=== PATIENT | female | born 1955 | race Caucasian/White ===

== ENCOUNTER 2025-01-23 13:57 | Inpatient (IN) | payer MEDICARE, SELFPAY ==
[2025-01-23] VITALS (19 sets, daily range): BP systolic 93–129; BP diastolic 35–70; PULSE 86–112; RESP 16–23; TEMP 36.6–38.9; O2SAT 93–100; BMI 30.5; BMI 31.6
--- NOTE | 2025-01-23 14:29 | RAD_ITS ---
PROCEDURE: CHEST PA AND LATERAL REASON FOR EXAM: Cough fever and back pain. TECHNIQUE: PA and lateral chest radiographs were obtained. COMPARISON: None. FINDINGS: EKG electrodes are seen. Mild elevation of the anterior aspect of the right hemidiaphragm. Patchy bibasilar infiltrates at the lung bases well as in the lingular segment of the left upper lobe. This is superimposed on mild degree of scarring. Follow-up recommended. Degenerative changes of the thoracic spine. RAD/Chest PA and Lateral IMPRESSION: Patchy bibasilar pulmonary infiltrates worse on the left side. Follow-up recom mended. Reading Location: [facility]
--- NOTE | 2025-01-23 14:29 | EKG12_ITS ---
Test Reason : Blood Pressure : */* mmHG Vent. Rate : 108 BPM Atrial Rate : 108 BPM P-R Int : 130 ms QRS Dur : 74 ms QT Int : 324 ms P-R-T Axes : 45 10 21 degrees QTcB Int : 434 ms Sinus tachycardia Otherwise normal ECG No previous ECGs available Confirmed by Carter Araiza ([id number]), visual effects editor MARIELLA LYNCH ([id number]) on 01/25/2025 9:25:46 AM Referred By: Confirmed By: Carter Araiza
[2025-01-23 14:51] LABS: Absolute Lymphocyte Count 0.56 X10^3/uL (0.83-4.51); Basophil# 0.06 X10^3/uL; Basophil% 0.3 % (0-1); Eosinophil# 0.02 X10^3/uL; Eosinophils% 0.1 % (0-5); Hematocrit 41.1 % (37-47); Hemoglobin 13.3 g/dL (12.0-15.0); Lymphocyte # 0.56 X10^3/ul (0.83-4.51); Lymphocyte % 3.1 % (19-41); Mean Corp Hgb Conc 32.4 g/dL (32-36); Mean Corpuscular Hgb 28.9 pg (27.0-32.0); Mean Corpuscular Volume 89.3 fL (81-99); Mean Platelet Vol. 10.3 fl (6.2-12.0); Monocyte# 1.38 X10^3/uL; Monocyte% 7.6 % (0-10); NRBC Flagged by Analyzer 0 % (0-5); Neutrophil # 15.95 X10^3/uL (2.7-7.7); Neutrophil % 88.3 % (47-70); POSITIVE DIFFERENTIAL YES; Platelet Count 197 K/mm3 (150-450); RBC Distribution Width CV 12.8 % (11.6-14.6); RBC Distribution Width SD 42.2 fl (35.1-43.9); White Blood Count 18.1 K/mm3 (4.4-11.0)
[2025-01-23 15:19] LABS: International Normalized Ratio 1.1; Prothrombin Time (Protime)PT. 14.3 SECONDS (11.7-14.9)
[2025-01-23] MEDS: 0.9% Normal Saline (1000mL) 1,000 ML 999 ML IV ×2 (15:21→16:49)
[2025-01-23] MEDS: Ondansetron 4 MG/2 ML Vial IV (15:21)
[2025-01-23] MEDS: Acetaminophen 325 MG Tablet 650 MG PO (15:35)
[2025-01-23 15:44] LABS: AST(SGOT) 22 U/L (<=31); Alanine Aminotransfer ALT/SGPT 14 U/L (<=34); Albumin, Serum 4.1 g/dL (3.4-4.8); Alkaline Phosphatase 112 U/L (35-104); Anion Gap 13 (5-15); BUN 18 mg/dL (4-19); BUN/Creat Ratio 28.8 RATIO (10-20); Calcium 9.9 mg/dL (7.6-11.0); Carbon Dioxide 25.7 mmol/L (22.0-29.0); Chloride 97 mmol/L (96-108); Creatinine, Serum 0.6 mg/dL (0.6-1.0); EST Glomerular Filtration Rate 95 (>60); Estimated Creatinine Clearance 56.71 ml/min; Glucose 121 mg/dL (70-99); Lactic Acid 1.4 mmol/L (0.0-2.0); Potassium 4.4 mmol/L (3.3-5.1); Protein, Total 8.1 g/dL (5.9-8.4); Sodium Level 135 mmol/L (133-145); Total Bilirubin 0.76 mg/dL (0.00-1.30)
[2025-01-23 16:15] LABS: Partial Thromboplast Time 29.2 Seconds (24.1-36.2)
[2025-01-23 16:28] LABS: D-Dimer Quantitative (DVT/PE) > 20.00 FEU/ug/m (0.27-0.49)
--- NOTE | 2025-01-23 16:35 | CT_ITS ---
PROCEDURE: CTA CHEST W/WO CONTRAST REASON FOR EXAM: 69-year-old female, shortness of breath, elevated D-dimer. Cough, nausea and back pain. TECHNIQUE: CTA imaging of the chest with intravenous contrast. 3D reconstructions. CONTRAST: [id number] COMPARISON: Same day chest radiograph. FINDINGS: Hardware: None. Lymph nodes: No axillary lymphadenopathy. Centrally necrotic subaortic lymph node, and large centrally necrotic lesion within the central prevascular space. Heart: Cardiomegaly. No pericardial effusion. Dilation of the main pulmonary artery measuring 3.5 cm. RV/LV Diameter Ratio: Less than 1 Thoracic Aorta: No thoracic aortic aneurysm or dissection. Pulmonary Vessels: Saddle pulmonary embolus. Lungs and Airways: The central airways are patent. Traction bronchiectasis and diffuse honeycombing, greatest within the dependent lungs, with apical to basal gradient, [id number]. Trace left pleural effusion. No pneumothorax. Upper Abdomen: Visualized portions of the upper abdominal viscera are unremarkable. Bones: Mild thoracic spondylosis. No aggressive osseous lesions. CT/CTA Chest W/WO Contrast IMPRESSION: 1. Acute saddle pulmonary emboli. No evidence of right heart strain. 2. Centrally necrotic subaortic lymph node, and necrotic lesion within the cent ral prevascular space, which may communicate with thyroid isthmus, however visualization is limited by streak artifact. Correlat ion with outpatient nonemergent thyroid ultrasound is recommended for further evaluation if not recently performed. 3. Traction bronchiectasis and honeycombing with apical to basal gradient, comp atible with interstitial pulmonary fibrosis. Dr. Miller discussed these findings with Dr. Long at 6:33 pm on 01/23/25. One or more dose reduction techniques were used (e.g., Automated exposure contr ol, adjustment of the mA and/or kV according to patient size, use of iterative reconstruction technique). Reading Location: [id number]
--- NOTE | 2025-01-23 16:47 | EDS_ITS ---
HPI History of Present Illness Chief Complaint: General Illness Informant: patient Narrative Narrative: Patient is a 69-year-old female who is status post left total knee arthroplasty performed by Dr. Banerjee on November 16. She has been having ongoing knee pain and signs as told she has she needs another surgery next week because her knee replacement did not take in her femur. She is presenting today however because she has had 4 to 5 days of nausea and today started to have pain in her back with breathing. She is on both sides. She states she did start having a cough 2 days ago. She has been having fevers Tmax of 101.8 and was 102 ?F in triage here. She denies any URI symptoms such as sore throat or congestion. She had a negative COVID swab 1 week ago at [facility]. She went to urgent care today where she had negative flu swab. She was sent to the ER. Show she has been feeling lightheaded but this is a bit more chronic for her. She denies any new swelling of her legs. She states she did stop wearing her compression stockings. She is not on any oral anticoagulation. Postoperatively she was on aspirin for DVT prophylaxis. She denies any history of DVT or PE. No other complaints or concerns reported at this time. No vomiting reported. Denies abdominal pain. Did not have a bowel movement today and is otherwise been regular. PFSH PFSH Home Medications ?Medication ?Instructions ?Recorded ?Last Taken ?Type meloxicam 7.5 mg tablet 7.5 mg PO BID 01/23/25 Unkno wn History oxycodone 5 mg tablet 5 - 10 mg PO Q6H 01/23/25 History sennosides 8.6 mg tablet (senna) 17.2 mg PO DAILY PRN constipation 01/23/25 01/22/25 History vitamin E 1 applic topical DAILY 01/23 Unknown History Allergy/AdvReac Type Severity Reaction Status Date / Time No Known Allergies Allergy Verified 01/23/25 13:59 Surgical History History of appendectomy Total knee replacement status Social History Smoking Status: Never smoker ROS ROS ED Constitutional Constitutional ED: Reports chills and fever(s) Eyes Eyes: Denies change in vision ENT ENT ED: Denies ear pain, rhinorrhea or sore throat Cardiovascular Cardiovascular: Denies chest pain or palpitations Respiratory/Chest Respiratory/Chest: Reports cough and dyspnea Gastrointestinal Gastrointestinal: Reports nausea; Denies abdominal pain, constipation or vomiting Musculoskeletal Musculoskeletal: Reports back pain; Denies arthralgias or myalgias Integumentary Denies rash Neurologic Neurologic: Denies headache(s) or weakness Hematologic/Lymphatic Hematologic/Lymphatic: Denies easy bleeding or easy bruising EXAM Physical Exam Const Vital Signs: 01/23/25 13:58 01/23/25 13:59 01/23/25 14:37 Temperature 98.8 F 98.8 F Temperature Source Oral Oral Pulse Rate 109 H 109 H Respiratory Rate 18 18 Respiratory Effort Respiratory Pattern Blood Pressure 107/70 107/70 Blood Pressure Mean 82 82 Pulse Ox 93 93 Oxygen Delivery Method Room Air Room Air Room Air 01/23/25 14:37 01/23/25 14:42 01/23/25 15:03 Temperature 102.1 F H 102 F H Temperature Source Oral Oral Pulse Rate 108 H 112 H Respiratory Rate 21 H 20 H Respiratory Effort Short of Breath Respiratory Pattern Normal Blood Pressure 129/65 H 124/69 H Blood Pressure Mean 86 87 Pulse Ox 94 96 Oxygen Delivery Method Room Air Room Air 01/23/25 16:31 01/23/25 18:00 Temperature 100.1 F H Temperature Source Oral Pulse Rate 99 92 Respiratory Rate 16 22 H Respiratory Effort Respiratory Pattern Blood Pressure 97/48 L 93/38 L Blood Pressure Mean 64 56 Pulse Ox 96 99 Oxygen Delivery Method Room Air Room Air Positive well nourished and well developed General Appearance ED: well developed and NAD HEENT Reports moist mucous membranes Eyes PERRL Neck supple Chest Wall inspection of chest normal and palpation of chest normal Resp normal respiratory effort Resp Narrative: Diminished breath sounds at the bases, more pronounced at the left base. Cardio regular rhythm and no murmurs Rate: tachycardic GI normal to inspection, nondistended, normoactive bowel sounds and non-tender Extremity normal to inspection General Extremety ED: Negative for edema General Extremity: Negative for edema Neuro oriented x3 Sensorium / Orientation: alert Motor Exam: general weakness Psych mental status grossly normal Skin no rashes or lesions noted and no wounds MDM MDM MDM Narrative Medical decision making narrative: Patient evaluated for 5 days of nausea and some generalized malaise and today developed pain with breathing in her lower thoracic area. Upon arrival patient's blood pressure soft. O2 sat borderline low. She did have recent knee surgery differential includes pneumonia, influenza, pleurisy and pulmonary emboli. Septic workup initially initiated addition to D-dimer as patient was febrile and tachycardic upon arrival. CBC shows leukocytosis of 18.1. No left shift. D-dimer significantly elevated greater than 20. BMP largely normal. CT of the chest initially viewed by myself shows what appears to be a saddle PE. Discussed the case with Dr. Petty, vascular surgery who recommends heparin drip and n.p.o. after midnight for possible thrombectomy tomorrow morning. Would like echocardiogram. Patient started on heparin drip. I was contacted by radiologist about read. In addition patient has a possible necrotic lymph node and abnormality to her thyroid that we will need further evaluation. Case discussed with hospitalist, Dr. Bhardwaj. Patient informed of diagnosis and plan of care. She is agreeable. Patient has received 2 L of IV fluid in the emergency room. She remains hemodyn amically stable. He is requiring small amount of supplemental oxygen. The patient decompensates likely will require TNK/tPA for thrombolytics. This was discussed with vascular surgery. Despite her large clot burden patient's CT does not show signs of right heart strain per radiology. Troponin mildly elevated at 20 and then 26. proBNP is normal. While patient does meet sepsis criteria her CT is not consistent with pneumonia. I suspect her symptoms are from PE and possible pulmonary infarct. Will not give antibiotics at this time. Lab Data Attestation: I reviewed the patient's lab results. Labs: Laboratory Results - last 24 hr 01/23/25 01/23/25 01/23/25 14:40 16:45 18:46 WBC 18.1 H RBC 4.60 Hgb 13.3 Hct 41.1 MCV 89.3 MCH 28.9 MCHC 32.4 RDW Std Deviation 42.2 RDW Coeff of Xi 12.8 Plt Count 197 MPV 10.3 Immature Gran % (Auto) 0.600 Neut % (Auto) 88.3 H Lymph % (Auto) 3.1 L [place] % (Auto) 7.6 Eos % (Auto) 0.1 Baso % (Auto) 0.3 Absolute Neuts (auto) 16.0 H Absolute Lymphs (auto) 0.56 L Nucleated RBC % 0 PT 14.3 15.7 H INR 1.1 1.2 APTT 29.2 27.7 D-Dimer Quant (PE/DVT) > 20.00 H* Sodium 135 Potassium 4.4 Anion Gap 13 BUN 18 Creatinine 0.6 Estim Creat Clear Calc 56.71 Est GFR (MDRD) Non-Af 95 BUN/Creatinine Ratio 28.8 H Glucose 121 H Lactic Acid 1.4 Calcium 9.9 Total Bilirubin 0.76 AST 22 ALT 14 Alkaline Phosphatase 112 H Troponin T High Sens 20 H Delta Troponin T 6 Troponin T Hi Sens 2 Hr 26 H NT pro BNP II 98 Total Protein 8.1 Albumin 4.1 Globulin 4.0 Albumin/Globulin Ratio 1.0 Urine Color Yellow Urine Clarity Clear Urine pH 6.0 Ur Specific [place] 1.020 Urine Protein 100 H Urine Glucose (UA) Normal Urine Ketones 150 A* Urine Occult Blood 150 H Urine Nitrite Negative Urine Bilirubin Negative Urine Urobilinogen Normal Ur Leukocyte Esterase Negative Urine RBC 5-10 SEEN Urine WBC 0-5 SEEN Ur Squamous Epith Cells 0 SEEN Urine Bacteria 1+ Urine Mucus 1+ Radiography Chest X-Ray - ED: 2 View, Read by ED Physician, Read by Radiologist, Right Infiltrate and Left Infiltrate Diagnostic Testing: Clinical Impression(s) from Imaging Studies Chest X-Ray 01/23/25 14:29 IMPRESSION: Patchy bibasilar pulmonary infiltrates worse on the left side. Follow-up recommended. Reading Location: [facility] Chest CTA 01/23/25 16:35 IMPRESSION: 1. Acute saddle pulmonary emboli. No evidence of right heart strain. 2. Centrally necrotic subaortic lymph node, and necrotic lesion within the central prevascular space, which may communicate with thyroid isthmus, however visualization is limited by streak artifact. Correlation with outpatient nonemergent thyroid ultrasound is recommended for further evaluation if not recently performed. 3. Traction bronchiectasis and honeycombing with apical to basal gradient, compatible with interstitial pulmonary fibrosis. Dr. Miller discussed these findings with Dr. Long at 6:33 pm on 01/23/25. One or more dose reduction techniques were used (e.g., Automated exposure control, adjustment of the mA and/or kV according to patient size, use of iterative reconstruction technique). Reading Location: [facility] Management Discussion w/another healthcare provider: Hospitalist, Host/Hostess and Ra diologist Critical Care Time Critical Care Time: Yes Critical care time (excluding procedures): 30-74 minutes (35), Discussing w/Patient &/or Family/Band Saw Marker, Discussing w/Consultants and Arranging Admission or Transfer Discharge Plan Dx/Rx/DC Orders Clinical Impression: Pulmonary embolism, Hypoxia, Pleuritic pain, Fever, Leukocytosis Disposition Disposition: Acute Care Hospital [facility] Discharge Date/Time: 01/23/25 20:31
[2025-01-23 16:52] LABS: Squamous Epithelial Cells - UA 0 SEEN /hpf (5-10)
[2025-01-23 17:33] LABS: Color, Urine Yellow (Yellow); Glucose, Dipstick Normal (Normal); Leukocyte Esterase-Dipstick Negative /ul (Negative); Nitrite-Dipstick Negative (Negative); Occult Blood-Urine 150 /ul (Negative); Protein-Dipstick 100 mg/dl (Negative); Urine Bilirubin Dipstick Negative (Negative); Urine Clarity Clear (Clear); Urine Urobilinogen Normal (Normal)
[2025-01-23 17:39] LABS: Ketone-Dipstick 150 mg/dl (Negative)
[2025-01-23 18:08] LABS: Bacteria 1+ /hpf (None Seen); Mucous, Urine 1+ /hpf (<or=2+); Red Blood Cells-Urine 5-10 SEEN /hpf (0-5); White Blood Cells 0-5 SEEN /hpf (0-5)
[2025-01-23 18:43] LABS: Troponin T High Sensitivity 20 ng/L (<=14)
[2025-01-23] MEDS: HEPARIN/D5w 25,000 UNITS 25,000 UNITS/250 ML IV.SOLN. 9 UNITS CONT INF (18:43)
[2025-01-23] MEDS: Heparin Injection (Vial) 5,000 UNIT/ML VIAL 4000 UNIT IV (18:43)
[2025-01-23 19:04] LABS: Pro- Brain NATRIURETIC PEPTIDE 98 pg/mL (<=900)
[2025-01-23 19:04] LABS: International Normalized Ratio 1.2; Prothrombin Time (Protime)PT. 15.7 SECONDS (11.7-14.9)
[2025-01-23 19:05] LABS: Partial Thromboplast Time 27.7 Seconds (24.1-36.2)
--- NOTE | 2025-01-23 19:26 | PCM.HP.STD ---
[facility] - General General Date of Service: 01/23/25 Chief Complaint: shortness of breath [facility] Narrative EDSON COOK, is a 69 F who presents with shortness of breath. States that she been short of breath for over a month. But became acutely worse today with back pain as well. Given her worsening symptoms she presented to the emergency room. She underwent a CT angiogram of the chest that showed an acute saddle pulmonary emboli with no evidence of right heart strain. The emergency room physician reached out to Dr. Petty of vascular surgery who will [place] plan on doing an embolectomy on the . In the meantime patient was started on heparin drip. Patient denies ever having a blood clot before but recently had a left knee replacement but it is been showing that the femur aspect of it has not been healing so there was a tentative plan for her to have a revision on that and was supposed to have an orthopedic follow-up appointment on the . PFSH Medical History no medical history no medical history Home Medications ?Medication ?Instructions ?Recorded ?Last Taken ?Type meloxicam 7.5 mg tablet 7.5 mg PO BID 01/23/25 Unknown History oxycodone 5 mg tablet 5 - 10 mg PO Q6H 01/23/25 01/23/25 History sennosides 8.6 mg tablet (senna) 17.2 mg PO DAILY PRN constipation 01/23/25 01/22/25 History vitamin E 1 applic topical DAILY 01/23/25 Unknown History Allergy/AdvReac Type Severity Reaction Status Date / Time No Known Allergies Allergy Verified 01/23/25 13:59 Surgical History History of appendectomy Total knee replacement status Social History Smoking Status: Never smoker ROS ROS Narrative Chills. All review of systems were negative except as mentioned above in the history of present illness and the other review of systems. Vital Signs Vital Signs Vital Signs: 01/23/25 13:58 01/23/25 13:59 01/23/25 14:37 Temperature 37.1 C 37.1 C Temperature Source Oral Oral Pulse Rate 109 H 109 H Respiratory Rate 18 18 Respiratory Effort Respiratory Pattern Blood Pressure 107/70 107/70 Blood Pressure Mean 82 82 Pulse Ox 93 93 Oxygen Delivery Method Room Air Room Air Room Air 01/23/25 14:37 01/23/25 14:42 01/23/25 15:03 Temperature 38.9 C H 38.8 C H Temperature Source Oral Oral Pulse Rate 108 H 112 H Respiratory Rate 21 H 20 H Respiratory Effort Short of Breath Respiratory Pattern Normal Blood Pressure 129/65 H 124/69 H Blood Pressure Mean 86 87 Pulse Ox 94 96 Oxygen Delivery Method Room Air Room Air 01/23/25 16:31 01/23/25 18:00 Temperature 37.8 C H Temperature Source Oral Pulse Rate 99 92 Respiratory Rate 16 22 H Respiratory Effort Respiratory Pattern Blood Pressure 97/48 L 93/38 L Blood Pressure Mean 64 56 Pulse Ox 96 99 Oxygen Delivery Method Room Air Room Air Weight Weight: 70.987 kg Body Mass Index (BMI) 30.5 Physical Exam Const alert and no apparent distress Constitutional Narrative: Slightly anxious did become slightly tearful during the encounter. HEENT normocephalic, head/scalp atraumatic, hearing grossly normal bilaterally and moist oral mucous membranes Neck no lymphadenopathy, supple and no JVD Resp normal respiratory effort, no retractions, no use of accessory muscles and clear to auscultation bilaterally Cardio regular rate, regular rhythm, S1 normal heart sound and S2 normal heart sound GI normal to inspection, nondistended, normoactive bowel sounds and soft to palpation Extremity Extremity Narrative: Swelling in left lower extremity and very hypersensitive to mild palpation. No palpable cords that I could appreciate though limited given her hypersensitivity. Neuro moves all extremities Sensorium / Orientation: awake and alert Psych Mood & Affect: anxious Results Lab / Micro Data Attestation: I reviewed the patient's lab results. 01/23/25 14:40 01/23/25 14:40 Labs: Laboratory Results - last 24 hr 01/23/25 14:40: WBC 18.1 H, RBC 4.60, Hgb 13.3, Hct 41.1, MCV 89.3, MCH 28.9, MCHC 32.4, RDW Std Deviation 42.2, RDW Coeff of Xi 12.8, Plt Count 197, MPV 10.3, Immature Gran % (Auto) 0.600, Neut % (Auto) 88.3 H, Lymph % (Auto) 3.1 L, [place] % (Auto) 7.6, Eos % (Auto) 0.1, Baso % (Auto) 0.3, Absolute Neuts (auto) 16.0 H, Absolute Lymphs (auto) 0.56 L, Nucleated RBC % 0, PT 14.3, INR 1.1, APTT 29.2, D-Dimer Quant (PE/DVT) > 20.00 H*, Sodium 135, Potassium 4.4, Anion Gap 13, BUN 18, Creatinine 0.6, Estim Creat Clear Calc 56.71, Est GFR (MDRD) Non-Af 95, BUN/Creatinine Ratio 28.8 H, Glucose 121 H, Lactic Acid 1.4, Calcium 9.9, Total Bilirubin 0.76, AST 22, ALT 14, Alkaline Phosphatase 112 H, Troponin T High Sens 20 H, NT pro BNP II 98, Total Protein 8.1, Albumin 4.1, Globulin 4.0, Albumin/Globulin Ratio 1.0 01/23/25 16:45: Urine Color Yellow, Urine Clarity Clear, Urine pH 6.0, Ur Specific [place] 1.020, Urine Protein 100 H, Urine Glucose (UA) Normal, Urine Ketones 150 A*, Urine Occult Blood 150 H, Urine Nitrite Negative, Urine Bilirubin Negative, Urine Urobilinogen Normal, Ur Leukocyte Esterase Negative, Urine RBC 5-10 SEEN, Urine WBC 0-5 SEEN, Ur Squamous Epith Cells 0 SEEN, Urine Bacteria 1+, Urine Mucus 1+ 01/23/25 18:46: PT 15.7 H, INR 1.2, APTT 27.7 Micro: Microbiology 01/23/25 14:45 Mucosa - Nose SARS-CoV-2, Influenza & RSV (PCR) - Final Imaging Radiology Impression Chest X-Ray 01/23/25 14:29 IMPRESSION: Patchy bibasilar pulmonary infiltrates worse on the left side. Follow-up recommended. Reading Location: [id number] Chest CTA 01/23/25 16:35 IMPRESSION: 1. Acute saddle pulmonary emboli. No evidence of right heart strain. 2. Centrally necrotic subaortic lymph node, and necrotic lesion within the central prevascular space, which may communicate with thyroid isthmus, however visualization is limited by streak artifact. Correlation with outpatient nonemergent thyroid ultrasound is recommended for further evaluation if not recently performed. 3. Traction bronchiectasis and honeycombing with apical to basal gradient, compatible with interstitial pulmonary fibrosis. Dr. Miller discussed these findings with Dr. Long at 6:33 pm on 01/23/25. One or more dose reduction techniques were used (e.g., Automated exposure control, adjustment of the mA and/or kV according to patient size, use of iterative reconstruction technique). Reading Location: [id number] Assessment & Plan Assessment/Plan (1) Pulmonary embolism: PLAN: Acute pulmonary embolism. Patient that that she has been having shortness of breath for a month but became acutely worse about 5 days prior. Patient with saddle embolism on CT angiogram. Dr. Petty was notified by the emergency room and tentative plan for potential embolectomy on the . The meantime, patient will be on heparin drip. No evidence of any heart strain on the CAT scan but will cycle troponins and check an echocardiogram. Additionally will check duplex of her lower extremities. I suspect to if there is any DVT will certainly be in her left lower extremity. Pressure has been low so we will give her some IV fluids and monitor. Patient otherwise peers to be stable. I would not qualify her as being obstructive shock at this point in time. Though I am going to put the patient in the intensive care unit for closer monitoring in case she were to decompensate. If patient stays stable and depending on what happened with vascular surgery she could potentially be transferred out of the intensive care unit tomorrow. Will consult pulmonary medicine for critical care management. PLAN: Plan Status post failed left knee replacement. I do not have those records in [place] but patient describes that she has incomplete healing of the femur aspect and there is some tentative plan to have that replaced. She had an appointment on the but that would certainly need to be rescheduled. VTE prophylaxis: Not indicated as patient is going to be anticoagulated. CODE STATUS: Addressed with the patient. Patient is full code. Patient advised that she can change her mind at any time. Charges/Coding Visit Charges Inpatient E&M: 96549 Init Hosp L3
[2025-01-23 19:43] LABS: TROPONIN VARIANCE 2 HR 6; Troponin T High Sens 2 HR 26 ng/L (<=14)
--- NOTE | 2025-01-23 20:00 | ED.RN ---
REPORT CALLED TO CLASSIFICATION COUNSELORMAK PAUL. QUESTIONS/CONCERNS ANSWERED
--- NOTE | 2025-01-23 20:41 | ECHOD_ITS ---
Reason For Study Reason For Study: Saddle PE Procedure This was a 2D Doppler, Color Flow transthoracic echocardiogram. Exam performed portable in ICU/CCU. Left Ventricle Normal LV size. The estimated ejection fraction is 65 %. No evidence for diastolic dysfunction. No regional wall motion abnormalities noted. Right Ventricle Normal RV size. Normal systolic function. Atria The left and right atria are normal. No doppler evidence for ASD. Mitral Valve There is no mitral valve stenosis. No mitral valve insufficiency. Tricuspid Valve There is no tricuspid stenosis. Trivial tricuspid valve insufficiency. Pulmonary artery systolic pressure is 40 mmHg. Aortic Valve Trisinus/trileaflet aortic valve. There is no aortic stenosis. No aortic valve insufficiency. Pulmonic Valve There is no pulmonic valvular stenosis. No pulmonic valve insufficiency. Great Vessels Normal sized aortic root. Saddle thrombus noted in the main pulmonary artery. There is also midsystolic notching in the pulmonary artery. Pericardium/Pleural No pericardial effusion. MMode/2D Measurements & Calculations LVIDd: 4.2 cm IVSd: 1.1 cm Ao root diam: 2.9 cm LVIDs: 2.2 cm LVPWd: 1.1 cm RVDd: 3.2 cm FS: 49.1 % LAV(MOD-bp): 29.3 ml LVAd ap4: 20.2 cm2 LVAd ap2: 20.1 cm2 LAV(MOD-bp) Indexed: 17.1 ml/m2 LVLd ap4: 7.7 cm LVLd ap2: 7.6 cm LAV(MOD-sp2): 26.1 ml EDV(MOD-sp4): 44.0 ml EDV(MOD-sp2): 47.4 ml LAV(MOD-sp4): 26.6 ml EDV(sp4-el): 44.9 ml EDV(sp2-el): 45.0 ml LVAs ap4: 9.6 cm2 LVAs ap2: 9.2 cm2 LVLs ap4: 6.5 cm LVLs ap2: 6.3 cm ESV(MOD-sp4): 12.7 ml ESV(MOD-sp2): 13.2 ml ESV(sp4-el): 12.2 ml ESV(sp2-el): 11.3 ml EF(MOD-sp4): 71.0 % EF(MOD-sp2): 72.2 % EF(sp4-el): 72.9 % SV(MOD-sp4): 31.2 ml SV(MOD-sp2): 34.2 ml SV(sp4-el): 32.8 ml SI(MOD-sp4): 18.2 ml/m2 SI(MOD-sp2): 20.0 ml/m2 LA A4 area: 13.0 cm2 LA dimension(2D): 2.4 cm RA A4 area: 9.9 cm2 Time Measurements MV dec time: 0.23 sec Doppler Measurements & Calculations MV E max isael: 88.5 cm/sec Lat Peak E' Isael: 12.6 cm/sec Med Peak E' Isael: 10.3 cm/sec MV A max isael: 106.6 cm/sec E/E' lat: 7.0 E/E' med: 8.6 MV E/A: 0.83 Ao V2 max: 183.9 cm/sec LV V1 max: 146.4 cm/sec MV dec slope: 379.0 cm/sec2 Ao max P.5 mmHg LV V1 max P.6 mmHg Ao V2 mean: 118.2 cm/sec LV V1 mean P.0 mmHg Ao mean P.6 mmHg LV V1 mean: 106.0 cm/sec Ao V2 VTI: 31.7 cm LV V1 VTI: 31.5 cm AV (velocity ratio): 0.99 PA V2 max: 98.2 cm/sec TR max isael: 293.2 cm/sec TR max P.4 mmHg ECHO/Echo Complete Interpretation Summary The estimated ejection fraction is 65 %. No evidence for diastolic dysfunction. Saddle thrombus noted in the main pulmonary artery. There is also midsystolic n otching in the pulmonary artery. Ordering Physician: Raymundo Bhardwaj Referring Physician: Lori Jorgensen Performed By: Janell Martinez RDCS
--- NOTE | 2025-01-23 20:41 | VDLE_ITS ---
Reason For Study Reason For Study: Pulmonary embolism RIGHT LEFT GSV is normal. GSV is normal. Acute deep vein thrombosis is noted in the CFV, FV, CFV is compressible, spontaneous, phasic, competent, PopV, T/P Trunk, PTV, PeroV and SoleusV. It is dilated and demonstrates normal augmentation. and NONCOMPRESSIBLE. FV is compressible, spontaneous, phasic, competent Thrombus in CFV is mobile and not well adhered to the and demonstrates normal augmentation. miles. POP V is compressible, spontaneous, phasic, competent Procedure and demonstrates normal augmentation. This is a venous duplex using B-mode, color flow and T/P Trunk is compressible. spectral Doppler. PTV is compressible. Exam performed portable in ICU/CCU. LT PerV is compressible. A preliminary report was called and/or faxed to ICU. VL/Venous Duplex US - Henrry Extrem Interpretation Summary Acute deep vein thrombosis noted right common femoral vein, femoral vein, popli teal vein, tibioperoneal trunk vein, posterior tibial vein, peroneal vein, soleus vein. Deep veins of the left lower extremity are patent and compressible segmentally. There is no evidence of left lower extremity deep vein thrombosis. The bilateral great saphenous veins appear odonnell nt and compressible segmentally. Ordering Physician: Raymundo Bhardwaj Referring Physician: Lori Jorgensen Performed By: Marlyn Nieto RVT
[2025-01-23] MEDS: 0.9% Normal Saline (1000mL) 1,000 ML 150 ML IV (21:28)
[2025-01-23] MEDS: 0.9% Saline Lock 10 ML Syringe IV (21:29)
[2025-01-23] MEDS: oxyCODONE 5 MG Tablet PO (21:33)
[2025-01-23] MEDS: Senna Tablet 2 TABLET PO (21:33)
[2025-01-24] VITALS (18 sets, daily range): BP systolic 90–124; BP diastolic 40–110; PULSE 81–102; RESP 15–30; TEMP 36.6–37.3; O2SAT 97–100; BMI 32.2
[2025-01-24 01:12] LABS: Partial Thromboplast Time 53.2 Seconds (24.1-36.2)
[2025-01-24 01:53] LABS: TROPONIN VARIANCE 4 HR 3
[2025-01-24 01:54] LABS: Troponin T High Sens 4 HR 23 ng/L (<=14)
[2025-01-24] MEDS: 0.9% Saline Lock 10 ML Syringe IV ×4 (02:10→11:12)
[2025-01-24] MEDS: Morphine 2 MG/ML Syringe IV ×3 (02:10→11:12)
[2025-01-24 03:17] LABS: Absolute Lymphocyte Count 1.11 X10^3/uL (0.83-4.51); Basophil# 0.05 X10^3/uL; Basophil% 0.3 % (0-1); Differential Indicated SCAN CRITERIA MET; Eosinophil# 0.04 X10^3/uL; Eosinophils% 0.2 % (0-5); Hematocrit 31.7 % (37-47); Lymphocyte # 1.11 X10^3/ul (0.83-4.51); Lymphocyte % 6.1 % (19-41); Mean Corp Hgb Conc 31.5 g/dL (32-36); Mean Corpuscular Hgb 28.5 pg (27.0-32.0); Mean Corpuscular Volume 90.3 fL (81-99); Mean Platelet Vol. 10.6 fl (6.2-12.0); Monocyte# 1.84 X10^3/uL; Monocyte% 10.2 % (0-10); NRBC Flagged by Analyzer 0 % (0-5); Neutrophil # 14.97 X10^3/uL (2.7-7.7); Neutrophil % 82.9 % (47-70); POSITIVE DIFFERENTIAL YES; Platelet Count 172 K/mm3 (150-450); RBC Distribution Width SD 42.8 fl (35.1-43.9); Red Blood Count 3.51 M/mm3 (4.2-5.4); White Blood Count 18.1 K/mm3 (4.4-11.0)
[2025-01-24 03:47] LABS: Differential Comment SCANNED; Platelet Estimate ADEQUATE (ADEQ); Platelet Morphology LARGE; Toxic Granulation 1+
[2025-01-24] MEDS: 0.9% Normal Saline (1000mL) 1,000 ML 150 ML IV (04:09)
[2025-01-24] MEDS: HYDROmorphone 1 MG/ML Syringe IV (04:09)
[2025-01-24 04:11] LABS: Anion Gap 10 (5-15); BUN 12 mg/dL (4-19); BUN/Creat Ratio 22.7 RATIO (10-20); Calcium 8.4 mg/dL (7.6-11.0); Carbon Dioxide 22.1 mmol/L (22.0-29.0); Chloride 102 mmol/L (96-108); Creatinine, Serum 0.5 mg/dL (0.6-1.0); EST Glomerular Filtration Rate 100 (>60); Estimated Creatinine Clearance 57.73 ml/min; Glucose 118 mg/dL (70-99); Potassium 4.2 mmol/L (3.3-5.1); Sodium Level 134 mmol/L (133-145)
--- NOTE | 2025-01-24 07:17 | PN.HOSP_ITS ---
Reason for Visit Reason for Visit: Shortness of breath Subjective Subjective Patient states she has considerable shortness of breath with exertion. Still having some pain mostly in her knee and back. Was supposed to have knee surgery upcoming soon but that will clearly need to be delayed. Patient did have total knee arthroplasty so this is provoked DVT and will need 3 to 6 months of anticoagulation. Patient frustrated with the current situation but understanding Objective Data Objective Data Vital Signs: Vital Signs Temp Pulse Resp BP Pulse Ox O2 Del Method O2 Flow Rate 99.1 F 93 25 H 95/42 L 98 Nasal Cannula 2 01/24/25 04:00 01/24/25 06:00 01/24/25 06:00 01/24/25 06:00 01/24/25 06:00 01/24/25 06:00 01/24/25 06:00 Oxygen Flow Rate (L/min) 2 Oxygen Delivery Method Nasal Cannula Weight: 74.5 kg Body Mass Index (BMI) 32.2 Intake & Output: Intake and Output for Last 24 Hours 01/22/25 01/23/25 01/24/25 23:59 23:59 23:59 Intake Total 2300 / 2300 1058.05 / 1058.05 Output Total 400 / 400 Balance 2300 / 1900 658.05 / 658.05 Lab / Micro Data 01/24/25 02:50 01/24/25 02:50 Labs: Laboratory Results - last 24 hr 01/23/25 14:40: WBC 18.1 H, RBC 4.60, Hgb 13.3, Hct 41.1, MCV 89.3, MCH 28.9, MCHC 32.4, RDW Std Deviation 42.2, RDW Coeff of Xi 12.8, Plt Count 197, MPV 10.3, Immature Gran % (Auto) 0.600, Neut % (Auto) 88.3 H, Lymph % (Auto) 3.1 L, [place] % (Auto) 7.6, Eos % (Auto) 0.1, Baso % (Auto) 0.3, Absolute Neuts (auto) 16.0 H, Absolute Lymphs (auto) 0.56 L, Nucleated RBC % 0, PT 14.3, INR 1.1, APTT 29.2, D-Dimer Quant (PE/DVT) > 20.00 H*, Sodium 135, Potassium 4.4, Anion Gap 13, BUN 18, Creatinine 0.6, Estim Creat Clear Calc 56.71, Est GFR (MDRD) Non-Af 95, BUN/Creatinine Ratio 28.8 H, Glucose 121 H, Lactic Acid 1.4, Calcium 9.9, Total Bilirubin 0.76, AST 22, ALT 14, Alkaline Phosphatase 112 H, Troponin T High Sens 20 H, NT pro BNP II 98, Total Protein 8.1, Albumin 4.1, Globulin 4.0, Albumin/Globulin Ratio 1.0 01/23/25 16:45: Urine Color Yellow, Urine Clarity Clear, Urine pH 6.0, Ur Specific [place] 1.020, Urine Protein 100 H, Urine Glucose (UA) Normal, Urine Ketones 150 A*, Urine Occult Blood 150 H, Urine Nitrite Negative, Urine Bilirubin Negative, Urine Urobilinogen Normal, Ur Leukocyte Esterase Negative, Urine RBC 5-10 SEEN, Urine WBC 0-5 SEEN, Ur Squamous Epith Cells 0 SEEN, Urine Bacteria 1+, Urine Mucus 1+ 01/23/25 18:46: PT 15.7 H, INR 1.2, APTT 27.7, Delta Troponin T 6, Troponin T Hi Sens 2 Hr 26 H 01/23/25 22:23: Troponin T Hi Sens 4Hr 23 H 01/24/25 00:50: APTT 53.2 H 01/24/25 02:50: WBC 18.1 H, RBC 3.51 L, Hgb 10.0 L, Hct 31.7 L, MCV 90.3, MCH 28.5, MCHC 31.5 L, RDW Std Deviation 42.8, RDW Coeff of Xi 13.0, Plt Count 172, MPV 10.6, Immature Gran % (Auto) 0.300, Neut % (Auto) 82.9 H, Lymph % (Auto) 6.1 L, [place] % (Auto) 10.2 H, Eos % (Auto) 0.2, Baso % (Auto) 0.3, Absolute Neuts (auto) 15.0 H, Absolute Lymphs (auto) 1.11, Nucleated RBC % 0, Differential Comment SCANNED, Diff Path Review May foll, Toxic Granulation 1+, Platelet Estimate ADEQUATE, Plt Morphology Comment LARGE, Sodium 134, Potassium 4.2, Chloride Direct 102, Carbon Dioxide 22.1, Anion Gap 10, BUN 12, Creatinine 0.5 L , Estim Creat Clear Calc 57.73, Est GFR (MDRD) Non-Af 100, BUN/Creatinine Ratio 22.7 H, Glucose 118 H, Calcium 8.4 Micro: Microbiology 01/23/25 14:45 Mucosa - Nose SARS-CoV-2, Influenza & RSV (PCR) - Final Radiography Diagnostic Testing: Radiology Impression Chest X-Ray 01/23/25 14:29 IMPRESSION: Patchy bibasilar pulmonary infiltrates worse on the left side. Follow-up recommended. Reading Location: [id number] Chest CTA 01/23/25 16:35 IMPRESSION: 1. Acute saddle pulmonary emboli. No evidence of right heart strain. 2. Centrally necrotic subaortic lymph node, and necrotic lesion within the central prevascular space, which may communicate with thyroid isthmus, however visualization is limited by streak artifact. Correlation with outpatient nonemergent thyroid ultrasound is recommended for further evaluation if not recently performed. 3. Traction bronchiectasis and honeycombing with apical to basal gradient, compatible with interstitial pulmonary fibrosis. Dr. Miller discussed these findings with Dr. Long at 6:33 pm on 01/23/25. One or more dose reduction techniques were used (e.g., Automated exposure control, adjustment of the mA and/or kV according to patient size, use of iterative reconstruction technique). Reading Location: [facility] Physical Exam Const alert, oriented x3, no apparent distress and well nourished Constitutional Narrative: Obese, older, white female, sitting up in bed, appears comfortable currently on 2 to 3 L nasal cannula, at bedside, appears comfortable, nontoxic HEENT head/scalp atraumatic and moist oral mucous membranes Head and Scalp: normocephalic Resp normal respiratory effort, no retractions and no use of accessory muscles Resp Narrative: Comfortable breathing at rest, scattered fine crackles Auscultation: crackles; Negative for rales, rhonchi or wheezes Cardio regular rate, regular rhythm, S1 normal heart sound, S2 normal heart sound, no murmurs, no rub, no gallops and no clicks GI normal to inspection, nondistended, normoactive bowel sounds, soft to palpation and non-tender Extremity Extremity Narrative: Left lower extremity edema that is trace, well-healed left knee incision from total knee arthroplasty, scattered ecchymosis, no cyanosis or clubbing Neuro oriented x3 Neuro Narrative: Pain with movement of left lower extremity Speech: speech normal Psych Psych Narrative: Affect is slightly flat the patient intermittently tearful but eye contact is good, mood is appropriate for current situation Assessment & Plan Assessment/Plan (1) Leukocytosis: (2) Fever: (3) Pulmonary embolism: (4) Hypoxia: PLAN: Plan Shortness of breath with acute hypoxemia secondary to saddle pulmonary embolus without cor pulmonale -No RV strain noted on CT or echocardiogram -Vascular surgery has evaluated and doubtful for any intervention for thrombectomy -Continue heparin drip -Plan to transition to Eliquis 10 mg p.o. twice daily for 7 days then 5 mg p.o. twice daily for 3 to 6 months given that this was a provoked DVT -Continue supplemental oxygen--> currently on 2 L nasal cannula -Will need ambulatory pulse ox prior to discharge Pulmonary fibrosis -CTA of the chest shows pulmonary fibrosis -Immunological workup is pending -Outpatient follow-up with pulmonary medicine after discharge for further workup -Highly anticipate patient will need discharge with oxygen between these findings and PE Leukocytosis -Highly suspect reactive -Will continue to monitor with repeat CBC in a.m. -No signs of infection Anemia -Hemoglobin appears to have been in the 10 range -currently 10.0 -Will monitor closely with anticoagulation -Repeat CBC in a.m. Recent left knee replacement -Patient reports that the femoral component has not taken show she needs a repeat procedure -Plan was for said procedure coming up soon however this will need to be delayed given new diagnosis of pulmonary embolus -Outpatient follow-up with orthopedic surgery after discharge -Continue as needed oxycodone -As needed IV Dilaudid -Bowel regimen Obesity -BMI 32.1 -Complicates treatment, prognosis, outcomes -Recommend weight loss DVT prophylaxis -On heparin drip due to the above CODE STATUS -Full code as verified on admission Charges/Coding Visit Charges Inpatient E&M: 97829 Subs Hosp L2
[2025-01-24 07:30] LABS: Partial Thromboplast Time 46.6 Seconds (24.1-36.2)
--- NOTE | 2025-01-24 08:07 | EX.PCM.CONCC ---
Assessment & Plan Assessment/Plan (1) Pulmonary embolism: PLAN: Plan RECOMMENDATIONS: 1. Supplemental oxygen, if needed, to maintain saturations at or above 90%. 2. Awaiting results of echocardiogram. 3. Continue weight-based heparin infusion. 4. Secondary serologic workup for ILD. 5. The patient should follow-up in the pulmonary medicine clinic after discharge. IMPRESSIONS: 1. Shortness of breath and hypoxemia in the setting of saddle PE The patient's presenting dyspnea is likely multifactorial in etiology with evidence of interstitial lung disease coupled with superimposed saddle PE. The exact etiology and chronicity of the patient's interstitial disease is not yet clear. However, radiographically, the findings are concerning for IPF. Will plan to obtain a secondary workup for interstitial lung disease. Serologic workup has been ordered. In the interim, continue weight-based heparin infusion while awaiting the results of echocardiogram. If there is no significant RV dysfunction or pulmonary hypertension, the patient unlikely would benefit from thrombectomy. Continue supplemental oxygen, if needed, to maintain saturations at or above 90%. Ultimately, the patient should follow-up in the pulmonary medicine clinic after discharge. 2. Recent failed knee replacement with resultant immobility Complicates care, management, recovery and prognosis. Will defer further workup and management to orthopedic surgery. This note was generated with be2 dictation software. It may contain incorrect words, spelling, and punctuation that were not noted in checking the note before signing. HPI Consult Data Date of Consult: 01/24/25 HPI Narrative Reason for Consultation: Saddle pulmonary embolism HPI Narrative: The patient is a 69-year-old female, with a history as outlined below, who presented to the emergency department with progressive dyspnea. The patient reported that she has been struggling with dyspnea now for greater than 1 month. She denied any pre-existing lung conditions. She has never been diagnosed with any DVT or PE previously. She did undergo a left total knee arthroplasty by Dr. Diaz in mid October. 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 She has no significant environmental or occupational exposure history. She readily admits to being rather sedentary over the course of the last month following her knee replacement surgery. On presentation to the emergency department, the patient was initially documented to be afebrile and hemodynamically stable. Laboratory evaluation was notable for a white blood cell count of 18,000. D-dimer was significantly elevated. Chemistry profile was unremarkable. Troponin was mildly elevated at 20 with a BNP of 98. Urine analysis was unremarkable. CTA chest demonstrated evidence of saddle pulmonary embolism along with a background of interstitial lung disease with subpleural interstitial septal thickening and honeycomb formation in the bases bilaterally resulting in traction bronchiectasis. The patient was subsequently placed on a weight-based heparin infusion and was admitted to the medical intensive care unit for further management. This morning, the patient reported ongoing shortness of breath. However, she was maintaining appropriate oxygen saturations on 2 L/min via nasal cannula. Echocardiogram is currently pending. Vascular surgery is following the patient, should she require thrombectomy. [facility] Medical History no medical history Home Medications ?Medication ?Instructions ?Recorded ?Last Taken ?Type meloxicam 7.5 mg tablet 7.5 mg PO BID 01/23/25 Unknown History oxycodone 5 mg tablet 5 - 10 mg PO Q6H 01/23/25 01/23/25 History sennosides 8.6 mg tablet (senna) 17.2 mg PO DAILY PRN constipation 01/23/25 01/22/25 History vitamin E 1 applic topical DAILY 01/23/25 Unknown History Allergy/AdvReac Type Severity Reaction Status Date / Time No Known Allergies Allergy Verified 01/23/25 13:59 Surgical History History of appendectomy Total knee replacement status Social History Smoking Status: Never smoker ROS ROS Narrative 10 systems were reviewed with pertinent positives as noted in the HPI above. Physical Exam Const alert, oriented x3 and no apparent distress General Appearance: cooperative HEENT normocephalic and head/scalp atraumatic Eyes PERRL, EOMs intact bilaterally and conjunctivae normal Neck supple General: trachea midline Chest inspection of chest normal Resp normal respiratory effort Resp Narrative: Bibasilar rales Cardio regular rate and regular rhythm GI normal to inspection, nondistended, normoactive bowel sounds Extremity General Extremity: edema left; Negative for clubbing Skin no rashes or lesions noted Neuro CN's II-XII intact bilaterally, moves all extremities and no focal motor deficits Psych cooperative and affect normal Lab / Micro Data 01/24/25 02:50 01/24/25 02:50 Labs: Laboratory Results - last 24 hr 01/23/25 14:40: WBC 18.1 H, RBC 4.60, Hgb 13.3, Hct 41.1, MCV 89.3, MCH 28.9, MCHC 32.4, RDW Std Deviation 42.2, RDW Coeff of Xi 12.8, Plt Count 197, MPV 10.3, Immature Gran % (Auto) 0.600, Neut % (Auto) 88.3 H, Lymph % (Auto) 3.1 L, [place] % (Auto) 7.6, Eos % (Auto) 0.1, Baso % (Auto) 0.3, Absolute Neuts (auto) 16.0 H, Absolute Lymphs (auto) 0.56 L, Nucleated RBC % 0, PT 14.3, INR 1.1, APTT 29.2, D-Dimer Quant (PE/DVT) > 20.00 H*, Sodium 135, Potassium 4.4, Anion Gap 13, BUN 18, Creatinine 0.6, Estim Creat Clear Calc 56.71, Est GFR (MDRD) Non-Af 95, BUN/Creatinine Ratio 28.8 H, Glucose 121 H, Lactic Acid 1.4, Calcium 9.9, Total Bilirubin 0.76, AST 22, ALT 14, Alkaline Phosphatase 112 H, Troponin T High Sens 20 H, NT pro BNP II 98, Total Protein 8.1, Albumin 4.1, Globulin 4.0, Albumin/Globulin Ratio 1.0 01/23/25 16:45: Urine Color Yellow, Urine Clarity Clear, Urine pH 6.0, Ur Specific [place] 1.020, Urine Protein 100 H, Urine Glucose (UA) Normal, Urine Ketones 150 A*, Urine Occult Blood 150 H, Urine Nitrite Negative, Urine Bilirubin Negative, Urine Urobilinogen Normal, Ur Leukocyte Esterase Negative, Urine RBC 5-10 SEEN, Urine WBC 0-5 SEEN, Ur Squamous Epith Cells 0 SEEN, Urine Bacteria 1+, Urine Mucus 1+ 01/23/25 18:46: PT 15.7 H, INR 1.2, APTT 27.7, Delta Troponin T 6, Troponin T Hi Sens 2 Hr 26 H 01/23/25 22:23: Troponin T Hi Sens 4Hr 23 H 01/24/25 00:50: APTT 53.2 H 01/24/25 02:50: WBC 18.1 H, RBC 3.51 L, Hgb 10.0 L, Hct 31.7 L, MCV 90.3, MCH 28.5, MCHC 31.5 L, RDW Std Deviation 42.8, RDW Coeff of Xi 13.0, Plt Count 172, MPV 10.6, Immature Gran % (Auto) 0.300, Neut % (Auto) 82.9 H, Lymph % (Auto) 6.1 L, [place] % (Auto) 10.2 H, Eos % (Auto) 0.2, Baso % (Auto) 0.3, Absolute Neuts (auto) 15.0 H, Absolute Lymphs (auto) 1.11, Nucleated RBC % 0, Differential Comment SCANNED, Diff Path Review May foll, Toxic Granulation 1+, Platelet Estimate ADEQUATE, Plt Morphology Comment LARGE, Sodium 134, Potassium 4.2, Chloride Direct 102, Carbon Dioxide 22.1, Anion Gap 10, BUN 12, Creatinine 0.5 L, Estim Creat Clear Calc 57.73, Est GFR (MDRD) Non-Af 100, BUN/Creatinine Ratio 22.7 H, Glucose 118 H, Calcium 8.4 01/24/25 07:12: APTT 46.6 H Micro: Microbiology 01/23/25 14:45 Mucosa - Nose SARS-CoV-2, Influenza & RSV (PCR) - Final Imaging Radiology Impression Chest X-Ray 01/23/25 14:29 IMPRESSION: Patchy bibasilar pulmonary infiltrates worse on the left side. Follow-up recommended. Reading Location: [id number] Chest CTA 01/23/25 16:35 IMPRESSION: 1. Acute saddle pulmonary emboli. No evidence of right heart strain. 2. Centrally necrotic subaortic lymph node, and necrotic lesion within the central prevascular space, which may communicate with thyroid isthmus, however visualization is limited by streak artifact. Correlation with outpatient nonemergent thyroid ultrasound is recommended for further evaluation if not recently performed. 3. Traction bronchiectasis and honeycombing with apical to basal gradient, compatible with interstitial pulmonary fibrosis. Dr. Miller discussed these findings with Dr. Long at 6:33 pm on 01/23/25. One or more dose reduction techniques were used (e.g., Automated exposure control, adjustment of the mA and/or kV according to patient size, use of iterative reconstruction technique). Reading Location: [id number] Charges/Coding Visit Charges Inpatient E&M: 94161 Init Hosp L3
[2025-01-24] MEDS: oxyCODONE 5 MG Tablet PO ×2 (08:23→14:23)
[2025-01-24 10:54] LABS: Rheumatoid Factor 20.2 IU/mL (<15)
--- NOTE | 2025-01-24 12:00 | CASEMGMT ---
RN TAMERA CLOCKMAKER TAMERA?to room to meet with patient for initial transition planning/care coordination assessment. RN CM?introduced self and role at [facility]. Pt voices understanding and consents to assessment?at this time. Pt resting in bed in no distress at this time. @ bedside. Pt is A/O at this time and answers all questions appropriately. Care providers, pharmacy, and demographics verified/updated at this time. Strata:?1 PCP: Dr Lori Jorgensen. Pt states is wanting to switch PCP's. PCP directory provided. Specialists: Dr Diaz-mark Preferred Pharmacy: [facility] @ [place]. Otherwise, goes to [facility]. Insurance: [facility] Prescription Benefit: yes Living Will/HPOA: States has both LW and HCPOA, who is her . LNOK: , Ilir. Son and daughter. Living Arrangements: Lives w/ in 2-story home w/2 steps to enter. FFSU & handicap accessible.?Pt had surgery to Nov 16 and states she was doing well up until a few weks ago when she started having pain and swelling to her leg. She states she has been pushing herself and doing own ADL's @ home and also IADL's, although it has been difficult. assists w/compression socks. Transportation: DME: States has the following DME: walk-in shower w/shower chair, raised toilet, cane, siomara walker, grab bars, polar care, reclining exercise bike Pt states no need for further DME at this time. HHC/SNF: No hx of either. Has been going to OP therapy @ [facility]. They have cx'd any upcoming appts. Discussed discharge planning including SNF and HHC, questions answered. Pt states if SNF is needed, she would be amenable to going. Pt and state [facility] TCU is 1st choice. If pt able to discharge home, they want [facility]HC as 1st choice. They decline wanting list of other SNF or HHC options at this time. PLAN: TBD. SNF vs HHC. PT/OT evals pending. Follow for anti-coag @ discharge. Jose SALDIVAR RN, CM
[2025-01-24 13:31] LABS: Pathologist Review Reviewed
--- NOTE | 2025-01-24 14:11 | NURSING ---
Report given to NOHEMI Vasquez and Max RN who will resume care of this patient.
[2025-01-24 14:38] LABS: Partial Thromboplast Time 63.2 Seconds (24.1-36.2)
[2025-01-24] MEDS: HEPARIN/D5w 25,000 UNITS 25,000 UNITS/250 ML IV.SOLN. 11 UNITS CONT INF (17:39)
--- NOTE | 2025-01-24 17:51 | EX.PCM.CON.S ---
Assessment & Plan Assessment/Plan (1) Pulmonary embolism: QUALIFIERS: Pulmonary embolism type: saddle Chronicity: acute Acute cor pulmonale presence: without acute cor pulmonale Qualified Code(s): I26.92 - Saddle embolus of pulmonary artery without acute cor pulmonale PLAN: -CTA images reviewed, saddle PE with clot burden worst/occlusive in LLE segmental branch, RV/LV ratio 1.4; lunch parenchyma consistent with pulmonary fibrosis -echo does not reveal strain -trop only mildly elevated, BNP normal -on minimal O@ -in AM subjectively very SOB; improved when evaluated again in afternoon -suspect subjectively severe despite relatively small clot burden and no RV strain due to underlying pulmonary fibrosis -symptoms already improved -will cont heparin overnight, ambulatory O2/symptom assessment in AM -if accesptable then transition to oral anticoagulation; if severe symptoms/desat with ambulation with further discuss options HPI Consult Data Date of Consult: 01/24/25 HPI Narrative HPI Narrative: EDSON COOK, is a 69 F who presents with acute onset CP/back pain and SOB superimposed on exertional dyspnea that had been present for several weeks. She recently had left knee surgery and had been less active due to this and her SOB. A CTA revealed saddle PE with mildly dilated RV, thickened LV wall and septum as well as lung findings consistent with pulmonary fibrosis. She was maintaining saturation on 2 L of O2 though she was unable to speak completed sentences. She had mild tachycardia to 90s-100s and SBP 90-120s. No prior thrombotic events, no cardiac medical/surgical history, no prior diagnosis of pulmonary fibrosis. Trop peaked at 26, BNP 98. Echo- normal RV with no strain PFSH Medical History no medical history Home Medications ?Medication ?Instructions ?Recorded ?Last Taken ?Type meloxicam 7.5 mg tablet 7.5 mg PO BID 01/23/25 Unknown History oxycodone 5 mg tablet 5 - 10 mg PO Q6H 01/23/25 01/23/25 History sennosides 8.6 mg tablet (senna) 17.2 mg PO DAILY PRN constipation 01/23/25 01/22/25 History vitamin E 1 applic topical DAILY 01/23/25 Unknown History Allergy/AdvReac Type Severity Reaction Status Date / Time No Known Allergies Allergy Verified 01/23/25 13:59 Surgical History History of appendectomy Total knee replacement status Social History Smoking Status: Never smoker ROS Constitutional Constitutional: Denies chills, fever(s), frequent falls, lethargy or weakness Eyes Eyes: Denies blind spots, change in vision or loss of vision ENT HEENT: Denies bleeding gums, hoarseness or sore throat Cardiovascular Cardiovascular: Reports chest pain, chest pain at rest, dyspnea, dyspnea at rest, dyspnea on exertion, fatigue and leg edema; Denies abdominal pain, bluish discoloration of hand/feet, claudication, cold extremities, cyanosis, erythema on extremities, irregular heart rhythm, leg ulcers, numbness in extremities or weakness in extremities Respiratory/Chest Respiratory/Chest: Reports dyspnea, dyspnea on exertion, inability to speak, shortness of breath at rest and shortness of breath with exertion; Denies cough, excessive phlegm production or wheezing Gastrointestinal Gastrointestinal: Denies anorexia, change in stool character, constipation, diarrhea, melena or rectal bleeding Genitourinary Genitourinary: Denies dysuria or hematuria Musculoskeletal Musculoskeletal: Reports other Details: left knee pain/stiffness ; Denies abnormal gait Integumentary Integumentary: Denies erythema, non-healing lesions or wounds Neurologic Neurologic: Denies abnormal speech, focal weakness, headache(s), loss of vision, numbness, paresthesias or sensory deficit Hematologic/Lymphatic Hematologic/Lymphatic: Denies easy bleeding, easy bruising or lymphadenopathy Physical Exam Const alert, oriented x3 and healthy appearing General Appearance: cooperative and in distress Positive for mild and respiratory; Negative for combative or lethargic Orientation / Consciousness: awake Exam Limitations: no limitations HEENT Head and Scalp: normocephalic and atraumatic Eyes EOMs intact bilaterally General Eye: normal appearance of both eyes Neck full ROM General: trachea midline Resp normal respiratory effort and no use of accessory muscles Effort and Inspection: labored and pain with movement; Negative for able to speak in complete sentences, stridor or audible wheezes Cardio regular rate and regular rhythm Back/Spine Cervical Spine: cervical ROM normal Extremity full ROM, normal capillary refill and no clubbing, cyanosis or edema Skin no rashes or lesions noted and no wounds Neuro oriented x3, CN's II-XII intact bilaterally, no focal motor deficits and no sensory deficits noted Psych thought process normal, cooperative, affect normal, speech normal and activity/motor behavior normal Lab / Micro Data 01/24/25 02:50 01/24/25 02:50 Labs: Laboratory Results - last 24 hr 01/23/25 14:40: Troponin T High Sens 20 H, NT pro BNP II 98 01/23/25 16:45: Urine RBC 5-10 SEEN, Urine WBC 0-5 SEEN, Ur Squamous Epith Cells 0 SEEN, Urine Bacteria 1+, Urine Mucus 1+ 01/23/25 18:46: PT 15.7 H, INR 1.2, APTT 27.7, Delta Troponin T 6, Troponin T Hi Sens 2 Hr 26 H 01/23/25 22:23: Troponin T Hi Sens 4Hr 23 H 01/24/25 00:50: APTT 53.2 H 01/24/25 02:50: WBC 18.1 H, RBC 3.51 L, Hgb 10.0 L, Hct 31.7 L, MCV 90.3, MCH 28.5, MCHC 31.5 L, RDW Std Deviation 42.8, RDW Coeff of Xi 13.0, Plt Count 172, MPV 10.6, Immature Gran % (Auto) 0.300, Neut % (Auto) 82.9 H, Lymph % (Auto) 6.1 L, [place]min[place] % (Auto) 10.2 H, Eos % (Auto) 0.2, Baso % (Auto) 0.3, Absolute Neuts (auto) 15.0 H, Absolute Lymphs (auto) 1.11, Nucleated RBC % 0, Differential Comment SCANNED, Diff Path Review Reviewed, Toxic Granulation 1+, Platelet Estimate ADEQUATE, Plt Morphology Comment LARGE, Sodium 134, Potassium 4.2, Chloride Direct 102, Carbon Dioxide 22.1, Anion Gap 10, BUN 12, Creatinine 0.5 L, Estim Creat Clear Calc 57.73, Est GFR (MDRD) Non-Af 100, BUN/Creatinine Ratio 22.7 H, Glucose 118 H, Calcium 8.4 01/24/25 07:12: APTT 46.6 H 01/24/25 09:30: Rheumatoid Factor 20.2 H, TAM-1 Antibody TNP, SS-A/Ro IgG Antibody TNP, SS-B/La IgG Antibody TNP, Sm (Álvarez) Antibody TNP, INDIVIDUAL PENSION CONSULTANT Antibody TNP, Antichromatin Antibodies TNP, Centromere B Antibody TNP 01/24/25 14:20: APTT 63.2 H Micro: Microbiology 01/23/25 14:45 Mucosa - Nose SARS-CoV-2, Influenza & RSV (PCR) - Final Imaging Radiology Impression Chest CTA 01/23/25 16:35 IMPRESSION: 1. Acute saddle pulmonary emboli. No evidence of right heart strain. 2. Centrally necrotic subaortic lymph node, and necrotic lesion within the central prevascular space, which may communicate with thyroid isthmus, however visualization is limited by streak artifact. Correlation with outpatient nonemergent thyroid ultrasound is recommended for further evaluation if not recently performed. 3. Traction bronchiectasis and honeycombing with apical to basal gradient, compatible with interstitial pulmonary fibrosis. Dr. Miller discussed these findings with Dr. Long at 6:33 pm on 01/23/25. One or more dose reduction techniques were used (e.g., Automated exposure control, adjustment of the mA and/or kV according to patient size, use of iterative reconstruction technique). Reading Location: [facility] Echocardiogram 01/23/25 20:41 Interpretation Summary The estimated ejection fraction is 65 %. No evidence for diastolic dysfunction. Saddle thrombus noted in the main pulmonary artery. There is also midsystolic notching in the pulmonary artery. Ordering Physician: Raymundo Bhardwaj Referring Physician: Lori Jorgensen Performed By: Janell Martinez RDCS Charges/Coding Visit Charges Inpatient E&M: 38169 Init Hosp L3
[2025-01-24] MEDS: HYDROmorphone 0.5 MG/0.5 ML SYRINGE IV (21:49)
[2025-01-24 22:23] LABS: Partial Thromboplast Time 55.9 Seconds (24.1-36.2)
[2025-01-25] VITALS (8 sets, daily range): BP systolic 90–119; BP diastolic 44–64; PULSE 88–100; RESP 14–21; TEMP 36.6–36.8; O2SAT 91–100; BMI 32.3
[2025-01-25] MEDS: HYDROmorphone 0.5 MG/0.5 ML SYRINGE IV ×2 (01:43→05:21)
--- NOTE | 2025-01-25 07:52 | PN.CC_ITS ---
Assessment & Plan Assessment/Plan (1) Pulmonary embolism: QUALIFIERS: Pulmonary embolism type: saddle Chronicity: acute A cute cor pulmonale presence: without acute cor pulmonale Qualified Code(s): I 26.92 - Saddle embolus of pulmonary artery without acute cor pulmonale PLAN: Plan RECOMMENDATIONS: 1. Supplemental oxygen, if needed, to maintain saturations at or above 90%. 2. Perform walking oximetry study prior to consideration for discharge home. 3. Okay to transition to either Eliquis or Xarelto. 4. ILD serologic workup is pending. 5. The patient should follow-up in the pulmonary medicine clinic after discharge. 6. Will sign off from a critical care perspective. Please call with any additional questions. IMPRESSIONS: 1. Shortness of breath and hypoxemia in the setting of saddle PE The patient's presenting dyspnea is likely multifactorial in etiology with evidence of interstitial lung disease coupled with superimposed saddle PE. The exact etiology and chronicity of the patient's interstitial disease is not clear. However, radiographically, the findings are concerning for IPF. A secondary serologic workup for interstitial lung disease has been ordered, with labs pending. Echocardiogram did not reveal evidence of RV dysfunction with a pulmonary artery systolic pressure of 40 mmHg. Therefore, the decision was made to forego proceeding with thrombectomy. At this time, the patient can be transition from a weight-based heparin infusion to either Eliquis or Xarelto. The patient should follow-up in the pulmonary medicine clinic after discharge. Recommend performing walking oximetry study prior to consideration for discharge home. 2. Recent failed knee replacement with resultant immobility Complicates care, management, recovery and prognosis. Will defer further workup and management to orthopedic surgery. This note was generated with [employer] dictation software. It may contain incorrect words, spelling, and punctuation that were not noted in checking the note before signing. Subjective Subjective The patient was seen and examined at the bedside this morning. Events from the last 24 hours have been reviewed. The patient is currently afebrile, hemodynamically stable and maintaining appropriate oxygen saturations on 2 L/min via nasal cannula. Following evaluation by vascular surgery yesterday, the decision was made to forego thrombectomy. The patient remains on a weight-based heparin infusion. Objective Data Objective Data The patient's most recent lab work, culture data and imaging studies have all been personally reviewed. Lower extremity Doppler study revealed acute DVT in the right lower extremity. Surface echocardiogram was notable for an ejection fraction of 65%. The RV was normal in size and function. Pulmonary artery systolic pressure was estimated to be 40 mmHg. Vital Signs: Vital Signs Temp Pulse Resp BP Pulse Ox O2 Del Method O2 Flow Rate 98.3 F 88 14 97/52 L 98 Nasal Cannula 2 01/25/25 05:26 01/25/25 05:26 01/25/25 05:26 01/25/25 05:26 01/25/25 05:26 01/25/25 05:26 01/25/25 05:26 Oxygen Flow Rate (L/min) 2 Oxygen Delivery Method Nasal Cannula Weight: 164 lb 7.437 oz Body Mass Index (BMI) 32.3 Intake & Output: Intake and Output for Last 24 Hours 01/23/25 01/24/25 01/25/25 23:59 23:59 23:59 Intake Total 2300 / 2300 2502.20 / 2742.20 480 / 480 Output Total 1400 / 1400 Balance 2300 / 1900 1102.20 / 1342.20 480 / 480 Lab / Micro Data Attestation: I reviewed the patient's lab results. 01/25/25 07:36 01/25/25 07:36 Labs: Laboratory Results - last 24 hr 01/24/25 02:50: Diff Path Review Reviewed 01/24/25 07:12: APTT 46.6 H 01/24/25 09:30: Rheumatoid Factor 20.2 H, TAM-1 Antibody TNP, SS-A/Ro IgG Antibody TNP, SS-B/La IgG Antibody TNP, Sm (Álvarez) Antibody TNP, SUPERVISOR EPOXY FABRICATION Antibody TNP, Antichromatin Antibodies TNP, Centromere B Antibody TNP 01/24/25 14:20: APTT 63.2 H 01/24/25 21:58: APTT 55.9 H Micro: Microbiology 01/23/25 14:45 Mucosa - Nose SARS-CoV-2, Influenza & RSV (PCR) - Final Radiography Diagnostic Testing: Radiology Impression Echocardiogram 01/23/25 20:41 Interpretation Summary The estimated ejection fraction is 65 %. No evidence for diastolic dysfunction. Saddle thrombus noted in the main pulmonary artery. There is also midsystolic notching in the pulmonary artery. Ordering Physician: Raymundo Bhardwaj Referring Physician: Lori Jorgensen Performed By: Janell Martinez, [facility] Venous Doppler Study 01/23/25 20:41 Interpretation Summary Acute deep vein thrombosis noted right common femoral vein, femoral vein, popliteal vein, tibioperoneal trunk vein, posterior tibial vein, peroneal vein, soleus vein. Deep veins of the left lower extremity are patent and compressible segmentally. There is no evidence of left lower extremity deep vein thrombosis. The bilateral great saphenous veins appear patent and compressible segmentally. Ordering Physician: Raymundo Bhardwaj Referring Physician: Lori Jorgensen Performed By: Marlyn Nieto Estefany Physical Exam Const alert, oriented x3 and no apparent distress Constitutional Narrative: Sitting in bedside recliner. is present at the bedside. General Appearance: cooperative HEENT normocephalic and head/scalp atraumatic Eyes PERRL, EOMs intact bilaterally and conjunctivae normal Neck supple General: trachea midline Chest inspection of chest normal Resp normal respiratory effort Resp Narrative: Bibasilar rales Cardio regular rate and regular rhythm GI normal to inspection, nondistended, normoactive bowel sounds Extremity General Extremity: edema left; Negative for clubbing Skin no rashes or lesions noted Neuro CN's II-XII intact bilaterally, moves all extremities and no focal motor deficits Psych cooperative and affect normal Charges/Coding Visit Charges Inpatient E&M: 13902 Subs Hosp L2
[2025-01-25 08:45] LABS: Absolute Lymphocyte Count 0.87 X10^3/uL (0.83-4.51); Absolute Neutrophil Count 15.8 X10^3/uL (2.0-7.7); Basophil# 0.04 X10^3/uL; Basophil% 0.2 % (0-1); Differential Indicated SCAN CRITERIA MET; Eosinophil# 0.02 X10^3/uL; Eosinophils% 0.1 % (0-5); Hematocrit 32.3 % (37-47); Hemoglobin 10.3 g/dL (12.0-15.0); Lymphocyte # 0.87 X10^3/ul (0.83-4.51); Lymphocyte % 4.7 % (19-41); Mean Corp Hgb Conc 31.9 g/dL (32-36); Mean Corpuscular Hgb 28.7 pg (27.0-32.0); Mean Platelet Vol. 10.7 fl (6.2-12.0); Monocyte# 1.58 X10^3/uL; Monocyte% 8.6 % (0-10); NRBC Flagged by Analyzer 0 % (0-5); Neutrophil # 15.83 X10^3/uL (2.7-7.7); Neutrophil % 85.9 % (47-70); POSITIVE DIFFERENTIAL YES; Platelet Count 197 K/mm3 (150-450); RBC Distribution Width CV 12.9 % (11.6-14.6); RBC Distribution Width SD 42.3 fl (35.1-43.9); Red Blood Count 3.59 M/mm3 (4.2-5.4); White Blood Count 18.4 K/mm3 (4.4-11.0)
[2025-01-25 09:02] LABS: Partial Thromboplast Time 214.1 Seconds (24.1-36.2)
--- NOTE | 2025-01-25 09:14 | NURSING ---
Heparin turned off at 0907.
[2025-01-25] MEDS: Senna Tablet 2 TABLET PO (10:22)
--- NOTE | 2025-01-25 10:30 | CASEMGMT ---
Discharge Planning A list of?SNF providers including quality and resource use data and consistent with the patient's preferred geographic region, medical needs, and insurance network was created in [employer] Guide.? This list was provided to the patient. Linsey Wilks, Discharge Planning Asst.
--- NOTE | 2025-01-25 10:40 | NURSING ---
heparin rate resumed at 8 ml/hr per Protocol, verified rate with Chintan CORADO.
[2025-01-25 10:59] LABS: ALB/GLOB Ratio 0.9 RATIO (0.9-2.4); AST(SGOT) 14 U/L (<=31); Alanine Aminotransfer ALT/SGPT 9 U/L (<=34); Albumin, Serum 2.9 g/dL (3.4-4.8); Alkaline Phosphatase 89 U/L (35-104); Anion Gap 12 (5-15); BUN 12 mg/dL (4-19); BUN/Creat Ratio 30.5 RATIO (10-20); Calcium 8.9 mg/dL (7.6-11.0); Carbon Dioxide 21.6 mmol/L (22.0-29.0); Chloride 99 mmol/L (96-108); Creatinine, Serum 0.4 mg/dL (0.6-1.0); EST Glomerular Filtration Rate 107 (>60); Estimated Creatinine Clearance 58.18 ml/min; Globulin 3.4 g/dL (2.2-4.2); Glucose 107 mg/dL (70-99); Magnesium 2.1 mg/dL (1.5-2.2); Phosphorus 2.2 mg/dL (2.7-4.5); Potassium 3.9 mmol/L (3.3-5.1); Protein, Total 6.3 g/dL (5.9-8.4); Sodium Level 133 mmol/L (133-145); Total Bilirubin 0.47 mg/dL (0.00-1.30)
[2025-01-25] MEDS: oxyCODONE 5 MG Tablet PO ×2 (12:48→18:44)
[2025-01-25 14:08] LABS: ANTINUCLEAR ANTIBODIES DIRECT Negative (Negative)
--- NOTE | 2025-01-25 15:03 | CHAPLAIN ---
Type of Pastoral Visit _x__ Initial Visit ___ Follow-up Visit ___ On-call Visit ___ General Patient Visit ___ Spiritual Assessment ___ Family Conference ___ Bereavement ___ Rapid Response ___ Code Blue ___ Other (describe below) Pastoral Care Referral From _x__ Patient ___ Family ___ Nurse ___ Physician ___ Combat Control ___ Hospital Clinic Assistant ___ Other (describe below) Sacrament/Intervention _x__ Active listening ___ Anointing ___ Mosque ___ Bereavement ___ Communion _x__ Kaylan exploration ___ _x__ Life review _x__ Prayer ___ Reconciliation ___ Sacrament of Sick _x__ Supportive presence ___ Wedding ___ Other (describe below) Pastoral Comments patient is sitting up in the chair and resting with a food tray in front of her; pt is welcoming, explains that she has not been a hospital patient for 50 years and how much this is out of her comfort level; pt admits difficulty in dealing with this change in health and being dependent on others; pt does have some difficulty in speaking much due to her lung deficiency at this time; pt however welcomes someone to talk to and for prayers to be given; pt has support from family
--- NOTE | 2025-01-25 16:21 | PN.HOSP_ITS ---
Reason for Visit Reason for Visit: Shortness of breath Subjective Subjective No significant issues overnight. Sats are stable on 2 L nasal cannula. Patient still complaining of pretty significant dyspnea especially exertional dyspnea. Between her exertional dyspnea and her ongoing issue with her left lower extremity at the knee joint she does feel she will need prison facility at discharge. I did explain the process of referral and acceptance and then pre-CERT from insurance. I did tell her it is very likely that she could year be here to early next week and she voiced understanding. Objective Data Objective Data Vital Signs: Vital Signs Temp Pulse Resp BP Pulse Ox O2 Del Method O2 Flow Rate 98.3 F 98 21 H 110/64 99 Room Air 2 01/25/25 14:20 01/25/25 14:20 01/25/25 14:20 01/25/25 14:20 01/25/25 14:20 01/25/25 14:20 01/25/25 14:20 Oxygen Flow Rate (L/min) 2 Oxygen Delivery Method Room Air Weight: 74.6 kg Body Mass Index (BMI) 32.3 Intake & Output: Intake and Output for Last 24 Hours 01/23/25 01/24/25 01/25/25 23:59 23:59 23:59 Intake Total 2300 / 2300 2502.20 / 2742.20 650.13 / 650.13 Output Total 1400 / 1400 Balance 2300 / 1900 1102.20 / 1342.20 650.13 / 650.13 Lab / Micro Data 01/25/25 07:36 01/25/25 07:36 Labs: Laboratory Results - last 24 hr 01/24/25 09:30: QUITA Screen Negative 01/24/25 21:58: APTT 55.9 H 01/25/25 07:36: WBC 18.4 H, RBC 3.59 L, Hgb 10.3 L, Hct 32.3 L, MCV 90.0, MCH 28.7, MCHC 31.9 L, RDW Std Deviation 42.3, RDW Coeff of Xi 12.9, Plt Count 197, MPV 10.7, Immature Gran % (Auto) 0.500, Neut % (Auto) 85.9 H, Lymph % (Auto) 4.7 L, [place] % (Auto) 8.6, Eos % (Auto) 0.1, Baso % (Auto) 0.2, Absolute Neuts (auto) 15.8 H, Absolute Lymphs (auto) 0.87, Nucleated RBC % 0, Diff Path Review March, APTT 214.1 H*, Sodium 133, Potassium 3.9, Chloride Direct 99, Carbon Dioxide 21.6 L, Anion Gap 12, BUN 12, Creatinine 0.4 L, Estim Creat Clear Calc 58.18, Est GFR (MDRD) Non-Af 107, BUN/Creatinine Ratio 30.5 H, Glucose 107 H, Calcium 8.9, Phosphorus 2.2 L, Magnesium 2.1, Total Bilirubin 0.47, AST 14, ALT 9, Alkaline Phosphatase 89, Total Protein 6.3, Albumin 2.9 L, Globulin 3.4, Albumin/Globulin Ratio 0.9 Micro: Microbiology 01/23/25 14:40 Blood Culture (Wb) - Anticubital Left Blood Culture - Preliminary No growth in 48 hours. 01/23/25 14:37 Urine, Clean Catch Urine Culture - Preliminary Mixed Gram Positive Organisms 01/23/25 14:45 Mucosa - Nose SARS-CoV-2, Influenza & RSV (PCR) - Final Radiography Diagnostic Testing: Radiology Impression Venous Doppler Study 01/23/25 20:41 Interpretation Summary Acute deep vein thrombosis noted right common femoral vein, femoral vein, popliteal vein, tibioperoneal trunk vein, posterior tibial vein, peroneal vein, soleus vein. Deep veins of the left lower extremity are patent and compressible segmentally. There is no evidence of left lower extremity deep vein thrombosis. The bilateral great saphenous veins appear patent and compressible segmentally. Ordering Physician: Raymundo Bhardwaj Referring Physician: Lori Jorgensen Performed By: Marlyn Nieto, RVT Physical Exam Const alert, oriented x3, no apparent distress and well nourished Constitutional Narrative: Obese, older, white female, sitting up in a chair at the bedside, appears worn out but stable, at bedside, appears comfortable, nontoxic HEENT normocephalic, head/scalp atraumatic, hearing grossly normal bilaterally and moist oral mucous membranes Resp normal respiratory effort, no retractions, no use of accessory muscles and No clear to auscultation bilaterally Resp Narrative: Fine crackles at bases bilaterally Auscultation: crackles; Negative for rales, rhonchi or wheezes Cardio regular rate, regular rhythm, S1 normal heart sound, S2 normal heart sound, no murmurs, no rub, no gallops and no clicks GI normal to inspection, nondistended, normoactive bowel sounds, soft to palpation and non-tender Extremity Extremity Narrative: Left lower extremity edema that is trace, well-healed left knee incision from total knee arthroplasty, scattered ecchymosis, no cyanosis or clubbing, tenderness in left lower extremity with palpation Neuro oriented x3 and moves all extremities Neuro Narrative: Pain with movement of left lower extremity Speech: speech normal Psych Negative for affect normal Psych Narrative: Affect remains flattened patient intermittently tearful Mood & Affect: anxious Assessment & Plan Assessment/Plan (1) Leukocytosis: (2) Fever: (3) Pulmonary embolism: QUALIFIERS: Pulmonary embolism type: saddle Chronicity: acute A cute cor pulmonale presence: without acute cor pulmonale Qualified Code(s): I 26.92 - Saddle embolus of pulmonary artery without acute cor pulmonale (4) Hypoxia: PLAN: Plan Shortness of breath with acute hypoxemia secondary to saddle pulmonary embolus without cor pulmonale -No RV strain noted on CT or echocardiogram -No thrombectomy recommended -Discontinue heparin drip -Start Eliquis 10 mg p.o. twice daily for 7 days then transition to 5 mg p.o. twice daily for a total of 3 to 6 months given provoked status -Continue supplemental oxygen--> currently on 2 L nasal cannula -Will need ambulatory pulse ox prior to discharge -Lasix 40 mg IV push x 1 dose Hypophosphatemia -Mild -Will give 21 mmol of sodium Phos and repeat lab in a.m. Pulmonary fibrosis -CTA of the chest shows pulmonary fibrosis -Immunological workup is pending -Rheumatoid factor was slightly elevated at 20.2 with anti-CCP antibody pending -QUITA was negative -ANCA's are pending -SCL 70 is pending -Double-stranded DNA antibody is pending -Outpatient follow-up with pulmonary medicine after discharge for further workup -Will get scheduled appointment -Highly anticipate patient will need discharge with oxygen between these findings and PE Leukocytosis -Highly suspect reactive and remains elevated -Will continue to monitor with repeat CBC in a.m. -No signs of infection at this time Anemia -Hemoglobin appears to have been in the 10 range -Remained stable between 10 and 11 -Will monitor closely with anticoagulation -Repeat CBC in a.m. Recent left knee replacement -Patient reports that the femoral component has not taken show she needs a repeat procedure -Plan was for said procedure coming up soon however this will need to be delayed given new diagnosis of pulmonary embolus -Outpatient follow-up with orthopedic surgery after discharge -Continue as needed oxycodone -As needed IV Dilaudid -Bowel regimen Obesity -BMI 32.1 -Complicates treatment, prognosis, outcomes -Recommend weight loss DVT prophylaxis -Heparin drip discontinued and patient transition to Eliquis 10 mg p.o. twice daily x 7 days then 5 mg p.o. twice daily CODE STATUS -Full code as verified on admission Disposition: -Given exertional dyspnea and issues with left lower extremity patient feels that she is not safe to go home and her cannot take adequate care of her at home so would like to go to skilled facility. Additional therapy was recommended in the skilled environment by physical and Occupational Therapy. Patient prefers transitional care unit and referral was sent. Will require pre- CERT prior to discharge Charges/Coding Visit Charges Inpatient E&M: 59789 Subs Hosp L2
--- NOTE | 2025-01-25 16:28 | CASEMGMT ---
Social Work SW met with pt and discussed discharge plan. A list of SNF providers including quality and resource use data and consistent with the patient?s preferred geographic region, medical needs, and insurance network were provided from the [employer] Guide. Pt preferred provider is TCU. Referral made to TCU. SW will await determination of acceptance. Plan: TCU, pending acceptance and precert ALEKS Gutierres
[2025-01-25] MEDS: APIXABAN 5 MG TABLET 10 MG PO ×2 (16:42→21:05)
[2025-01-25] MEDS: Furosemide 40 MG/4 ML Vial IV (16:42)
[2025-01-25] MEDS: 0.9% Saline Lock 10 ML Syringe IV (16:43)
[2025-01-25] MEDS: Sodium Phosphate/Na Biphos 21 MMOL in 0.9% Normal Saline (250mL Bag) 250 ML 84 MMOL IV (17:03)
[2025-01-26] MEDS: HYDROmorphone 0.5 MG/0.5 ML SYRINGE IV (01:11)
[2025-01-26 01:14] VITALS: BP 122/51; PULSE 87; RESP 18; TEMP 36.9; O2SAT 99
[2025-01-26 02:28] VITALS: BMI 32.7
[2025-01-26 04:07] LABS: CCP IgG Antibodies 6 units (0-19); Cytoplasmic Ab (C-ANCA) <1:20 titer (Neg:<1:20); Perinuclear Ab (P-ANCA) <1:20 titer (Neg:<1:20)
[2025-01-26 05:00] VITALS: BP 94/48; PULSE 89; RESP 15; TEMP 36.8; O2SAT 99
[2025-01-26 07:41] LABS: Absolute Lymphocyte Count 0.66 X10^3/uL (0.83-4.51); Absolute Neutrophil Count 12.2 X10^3/uL (2.0-7.7); Basophil# 0.05 X10^3/uL; Basophil% 0.3 % (0-1); Eosinophil# 0.09 X10^3/uL; Eosinophils% 0.6 % (0-5); Hematocrit 31.4 % (37-47); Hemoglobin 10.4 g/dL (12.0-15.0); Lymphocyte # 0.66 X10^3/ul (0.83-4.51); Lymphocyte % 4.6 % (19-41); Mean Corp Hgb Conc 33.1 g/dL (32-36); Mean Corpuscular Hgb 29.1 pg (27.0-32.0); Mean Corpuscular Volume 87.7 fL (81-99); Mean Platelet Vol. 10.2 fl (6.2-12.0); Monocyte# 1.31 X10^3/uL; Monocyte% 9.1 % (0-10); NRBC Flagged by Analyzer 0 % (0-5); Neutrophil # 12.23 X10^3/uL (2.7-7.7); Platelet Count 249 K/mm3 (150-450); RBC Distribution Width CV 12.7 % (11.6-14.6); RBC Distribution Width SD 40.6 fl (35.1-43.9); Red Blood Count 3.58 M/mm3 (4.2-5.4); White Blood Count 14.4 K/mm3 (4.4-11.0)
[2025-01-26] MEDS: Magnesium Chloride 64 MG Delay Rel.Tablet 128 MG PO (08:17)
[2025-01-26] MEDS: oxyCODONE 5 MG Tablet PO ×2 (08:17→13:28)
[2025-01-26] MEDS: APIXABAN 5 MG TABLET 10 MG PO (08:18)
[2025-01-26] MEDS: Senna Tablet 2 TABLET PO (08:21)
[2025-01-26 09:08] LABS: Anion Gap 12 (5-15); BUN 13 mg/dL (4-19); BUN/Creat Ratio 30.2 RATIO (10-20); Calcium 8.8 mg/dL (7.6-11.0); Carbon Dioxide 24.8 mmol/L (22.0-29.0); Chloride 97 mmol/L (96-108); Creatinine, Serum 0.43 mg/dL (0.70-1.20); EST Glomerular Filtration Rate 104 (>60); Estimated Creatinine Clearance 58.59 ml/min; Glucose 124 mg/dL (70-99); Potassium 3.2 mmol/L (3.3-5.1); Sodium Level 134 mmol/L (133-145)
--- NOTE | 2025-01-26 09:53 | CASEMGMT ---
Social Work Pt was accepted into TCU and we have precert. SW let pt and physician know, pt is agreeable. OCTAVIANO Melissa
[2025-01-26 10:19] VITALS: O2SAT 96
[2025-01-26 11:00] VITALS: BP 104/50; PULSE 94; RESP 21; TEMP 36.7; O2SAT 90
[2025-01-26 12:00] VITALS: RESP 21; O2SAT 98
--- NOTE | 2025-01-26 12:20 | PN.HOSP_ITS ---
Reason for Visit Reason for Visit: Diagnoses Elevated white blood cell count, unspecified (01/23/25) Saddle embolus of pulmonary artery without acute cor pulmonale (01/23/25) Other pulmonary embolism without acute cor pulmonale (01/23/25) Hypoxemia (01/23/25) Fever, unspecified (01/23/25) Objective Data Objective Data Vital Signs: Vital Signs Temp Pulse Resp BP Pulse Ox O2 Del Method O2 Flow Rate 98.3 F 89 15 94/48 L 96 Nasal Cannula 2 01/26/25 05:00 01/26/25 05:00 01/26/25 05:00 01/26/25 05:00 01/26/25 10:19 01/26/25 10:19 01/26/25 10:19 Oxygen Flow Rate (L/min) 2 Oxygen Delivery Method Nasal Cannula Weight: 75.6 kg Body Mass Index (BMI) 32.7 Intake & Output: Intake and Output for Last 24 Hours 01/24/25 01/25/25 01/26/25 23:59 23:59 23:59 Intake Total 2502.20 / 2742.20 1253.93 / 1253.93 250 / 250 Output Total 1400 / 1400 600 / 600 700 / 700 Balance 1102.20 / 1342.20 653.93 / 653.93 -450 / -450 Lab / Micro Data 01/26/25 07:13 01/26/25 07:13 Labs: Laboratory Results - last 24 hr 01/24/25 09:30: Cycl Citrul Peptide IgG 6, QUITA Screen Negative, c-ANCA Antibody <1:20, Atypical p-ANCA <1:20, p-ANCA Antibody <1:20, Scl-70 Scleroderma Ab TNP, Double Strand DNA Ab TNP 01/26/25 07:13: WBC 14.4 H, RBC 3.58 L, Hgb 10.4 L, Hct 31.4 L, MCV 87.7, MCH 29.1, MCHC 33.1, RDW Std Deviation 40.6, RDW Coeff of Xi 12.7, Plt Count 249, MPV 10.2, Immature Gran % (Auto) 0.400, Neut % (Auto) 85.0 H, Lymph % (Auto) 4.6 L, [place] % (Auto) 9.1, Eos % (Auto) 0.6, Baso % (Auto) 0.3, Absolute Neuts (auto) 12.2 H, Absolute Lymphs (auto) 0.66 L, Nucleated RBC % 0, Sodium 134, Potassium 3.2 L, Chloride Direct 97, Carbon Dioxide 24.8, Anion Gap 12, BUN 13, Creatinine 0.43 L, Estim Creat Clear Calc 58.59, Est GFR (MDRD) Non-Af 104, BUN/Creatinine Ratio 30.2 H, Glucose 124 H, Calcium 8.8 Micro: Microbiology 01/23/25 15:57 Blood Culture (Wb) - Left Hand Blood Culture - Preliminary No growth in 48 hours. 01/23/25 14:40 Blood Culture (Wb) - Anticubital Left Blood Culture - Preliminary No growth in 48 hours. 01/23/25 14:37 Urine, Clean Catch Urine Culture - Preliminary Mixed Gram Positive Organisms 01/23/25 14:45 Mucosa - Nose SARS-CoV-2, Influenza & RSV (PCR) - Final Charges/Coding Visit Charges Inpatient E&M: 53392 Disch Hosp >30min
--- NOTE | 2025-01-26 12:24 | PCM.DC.SUM ---
Providers Date of Admission: 01/23/25 Date of Discharge: 01/26/25 Primary Care Physician: CHERRY Allen Consultations 01/23/25 20:41 Consult: [employer] Sales Consultant / Pulmonary Medicine Routine Consulting Provider: Intensivists/Pulmonary Med Reason for Consult: PE EMERGENT Consult: No MD Notified: Yes Date Notified: 01/24/25 Time Notified: 04:36 Method of Notification: Text Consult: Vascular Surgery Routine Consulting Provider: Raymundo Petty Reason for Consult: PE EMERGENT Consult: No MD Notified: Yes Date Notified: 01/23/25 Time Notified: 19:25 Method of Notification: ED Physician Initiated Reason For Visit: SADDLE PE Diagnosis Discharge Diagnosis (1) Leukocytosis: Status: Acute Code(s): D72.829 - Elevated white blood cell count, unspecified (2) Fever: Status: Acute Code(s): R50.9 - Fever, unspecified (3) Pulmonary embolism: Status: Acute Code(s): I26.99 - Other pulmonary embolism without acute cor pulmonale Qualifiers: Acute cor pulmonale presence: without acute cor pulmonale Chronicity: acute Pulmonary embolism type: saddle Qualified Code(s): I26.92 - Saddle embolus of pulmonary artery without acute cor pulmonale (4) Hypoxia: Status: Acute Code(s): R09.02 - Hypoxemia Medications at Discharge Home Medications meloxicam 7.5 mg tablet 7.5 mg PO BID pain 01/23/25 oxycodone 5 mg tablet 5 mg PO Q4H PRN pain 01/23/25 sennosides 8.6 mg tablet (senna) 17.2 mg PO DAILY PRN constipation 01/23/25 vitamin E 1 applic topical DAILY to affected area 01/23/25 apixaban 5 mg tablet (Eliquis) 5 mg PO BID blood thinner #0 tabs 01/26/25 apixaban 5 mg tablet (Eliquis) 10 mg (2 x 5 mg) PO BID blood thinner #0 tabs 01/26/25 oxycodone 5 mg tablet 5 mg PO Q4H PRN pain 2 days #12 tabs 01/26/25 Hospital Course Procedures 2-D Echocardiogram, EKG and - (CXR/CTA Chest/Venous Duplex) Summary of Care Provided Minutes Spent on Discharge: 45 Hospital Course: Ms Staples is a 69 yo who presented to the ED at [facility] on 01/23/2025 with the chief complaint of shortness of breath. Patient had total knee arthroplasty done back in October 2024 as an outpatient and had been doing well but then developed some left lower extremity swelling and pain. She reported that she been more short of breath for about a month but became acutely worse with significant back pain on the day of presentation. Vital signs on presentation showed a temperature of 37.1, heart rate 109, respiratory 18, blood pressure 107/70 and pulse ox was 93% on room air. CBC showed a leukocytosis with a white count of 18.1 which has trended down throughout hospital stay. Hemoglobin is normal on presentation but was in the 10-11 range by the time of discharge. Chemistry panel was overall unremarkable. Lactic acid was normal at 1.4. BNP was normal. Slightly elevated at 23 with a delta of 26 and an significant rise. Chest x-ray showed patchy bibasilar infiltrates and CTA of the chest showed acute saddle pulmonary emboli with no evidence of right heart strain. She was admitted to the ICU and placed on a heparin drip and consultation to pulmonary medicine as well as vascular surgery was placed. She was valuated by vascular surgery after echocardiograms performed and showed no RV strain. No thrombectomy was performed based on evidence based recommendations. After reviewing imaging patient did indicates she had been get getting progressively worsening shortness of breath over time. It does appear she has pulmonary fibrosis at baseline. Pulmonary medicine did order a workup prior to discharge for autoimmune and she had an elevated rheumatoid factor but anti-CCP antibody was negative. QUITA was negative and ANCA's were all negative. She was maintained on a heparin drip and then transition to Eliquis 10 mg p.o. twice daily and will continue this for total of 7 days then transition to 5 mg p.o. twice daily. Since this was a provoked incident typically we would treat for 3 to 6 months however with her baseline lung disease vascular surgery recommended she have chronic anticoagulation. Patient was able to be weaned to room air prior to discharge at rest however required oxygen with exertion. Plans are to proceed with a total knee replacement on the left which will be a revision based on poor femoral component security. This will likely need to be delayed however patient was encouraged consult with Dr. Diaz after discharge. Given this, she was evaluated physical and Occupational Therapy and with a combination of her shortness of breath and ongoing issues with her left lower extremity it was felt to be safest to discharge her to skilled facility. She was accepted transitional care unit and stable for discharge on 01/26/2025. She is to follow-up with pulmonary medicine, vascular surgery, and her primary care physician as well as orthopedic surgery in the upcoming weeks. Discharge diagnoses: Shortness of breath Acute hypoxia Saddle pulmonary embolus without cor pulmonale Pulmonary fibrosis Hypophosphatemia-resolved Leukocytosis Anemia Recent left knee replacement Obesity Physical Exam Const alert, oriented x3, no apparent distress, no limitations and well nourished; Negative for average body habitus Constitutional Narrative: Obese, older, white female, sitting up in a chair at the bedside, appears worn out but stable, at bedside, appears comfortable, nontoxic General Appearance: cooperative, comfortable, well kempt and well developed Exam Limitations: no limitations HEENT normocephalic, head/scalp atraumatic, hearing grossly normal bilaterally and moist oral mucous membranes HEENT Narrative: Mallampati 2-3 Neck supple Resp normal respiratory effort, no retractions, no use of accessory muscles and No clear to auscultation bilaterally Auscultation: Negative for rales, rhonchi or wheezes Cardio regular rate, regular rhythm, S1 normal heart sound, S2 normal heart sound, no murmurs, no rub, no gallops and no clicks GI normal to inspection, nondistended, normoactive bowel sounds, soft to palpation and non-tender Extremity Extremity Narrative: Left lower extremity edema that is trace, well-healed left knee incision from total knee arthroplasty, scattered ecchymosis, no cyanosis or clubbing, decreased tenderness in left lower extremity with palpation Skin skin turgor normal, no jaundice, no petechiae and no mottling Neuro oriented x3 and moves all extremities Neuro Narrative: Pain with movement of left lower extremity Speech: speech normal Psych affect normal Psych Narrative: pleasant interacts appropriately and less tearful Weight / BMI Weight Weight: 75.6 kg Body Mass Index (BMI) 32.7 ABG / Lab / Microbiology Data 01/26/25 07:13 01/26/25 07:13 Laboratory: Laboratory Results - last 24 hr 01/24/25 09:30: Cycl Citrul Peptide IgG 6, QUITA Screen Negative, c-ANCA Antibody <1:20, Atypical p-ANCA <1:20, p-ANCA Antibody <1:20, Scl-70 Scleroderma Ab TNP, Double Strand DNA Ab TNP 01/26/25 07:13: WBC 14.4 H, RBC 3.58 L, Hgb 10.4 L, Hct 31.4 L, MCV 87.7, MCH 29.1, MCHC 33.1, RDW Std Deviation 40.6, RDW Coeff of Xi 12.7, Plt Count 249, MPV 10.2, Immature Gran % (Auto) 0.400, Neut % (Auto) 85.0 H, Lymph % (Auto) 4.6 L, [place] % (Auto) 9.1, Eos % (Auto) 0.6, Baso % (Auto) 0.3, Absolute Neuts (auto) 12.2 H, Absolute Lymphs (auto) 0.66 L, Nucleated RBC % 0, Sodium 134, Potassium 3.2 L, Chloride Direct 97, Carbon Dioxide 24.8, Anion Gap 12, BUN 13, Creatinine 0.43 L, Estim Creat Clear Calc 58.59, Est GFR (MDRD) Non-Af 104, BUN/Creatinine Ratio 30.2 H, Glucose 124 H, Calcium 8.8 Microbiology: Microbiology 01/23/25 14:37 Urine, Clean Catch Urine Culture - Final Mixed Gram Positive Organisms 01/23/25 15:57 Blood Culture (Wb) - Left Hand Blood Culture - Preliminary No growth in 48 hours. 01/23/25 14:40 Blood Culture (Wb) - Anticubital Left Blood Culture - Preliminary No growth in 48 hours. 01/23/25 14:45 Mucosa - Nose SARS-CoV-2, Influenza & RSV (PCR) - Final D/C Instructions Discharge Diet: No restrictions DC O2, CPAP, BIPAP Needs Home O2 Discharge instructions: No Meaningful Use Info Meaningful Use Meaningful Use Diagnoses (Choose all that apply): VTE Ischemic Stroke Statin Dosing Therapy Reference: STATIN DOSE THERAPY REFERENCE: * Patients > 75 years receive moderate or high dose statin therapy. * Patients 75 years or YOUNGER should receive HIGH intensity statin dose unless contraindicated. You will be required to document reason for non-treatment if statin daily dose does not meet guidelines. HIGH DOSE STATIN THERAPY DAILY Atorvastatin > than or = to 40 mg Rosuvastatin > than or = to 20 mg Amlodipine + Atorvastatin > than or = to 2.5/40 mg Ezetimibe + Simvastatin 10/80 mg Simvastatin 80mg VTE Anticoag overlap given w/in hospital stay or rx'd at dc?: Yes Pt receive overlap for 5 days?: No Reason overlap not ordered, prescribed, or given for 5 days: Treatment Not Indicated Discharge Plan Admission Admit Date/Time: 01/23/25 19:21 Primary Reason for Your Visit: Shortness of breath Attending Provider: Lori Matthews Primary Care Provider: Lori Jorgensen Consulting Providers: Raymundo Petty; Raymundo Bhardwaj Discharge Orders/Prescriptions Prescriptions: New Eliquis 5 mg Tablet 10 mg PO BID Qty: 0 0RF Rx Instructions: Last day for this dose is 02/01/2020 5 in the PM Eliquis 5 mg Tablet 5 mg PO BID Qty: 0 0RF Rx Instructions: To start on 02/01/2025 oxycodone 5 mg tablet 5 mg PO Q4H PRN (Reason: pain) 2 Days Qty: 12 0RF Continued oxycodone 5 mg tablet 5 mg PO Q4H PRN (Reason: pain) Patient Comments: TAKES 5MG TID meloxicam 7.5 mg tablet 7.5 mg PO BID Patient Comments: PT STATES SHE HASN'T TAKEN THIS IN A FEW DAYS vitamin E Oil 1 applic topical DAILY sennosides [senna] 8.6 mg tablet 17.2 mg PO DAILY PRN (Reason: constipation) Referrals / Follow Up: Cindy Guerrier NP, KD-C [Med Staff - [facility]] - 02/12/25 1:45 pm Lori Jorgensen NP-C [Primary Care Provider] - In 1 Week (After discharge from TCU) Disposition Disposition (needs filled in before D/C Order can be placed): Long-Term Facility Charges/Coding Visit Charges Inpatient E&M: 33322 SNF Disch >30 Min
[2025-01-26 12:28] VITALS: BP 104/50; PULSE 94; RESP 21; TEMP 36.7; O2SAT 90
[2025-01-26 13:37] LABS: Pathologist Review Reviewed
--- NOTE | 2025-01-26 15:23 | CASEMGMT ---
Social Work- Pt has precert. Physician feels pt is ready for discharge. SW faxed documentation to TCU. Plan: TCU; skilled level of care [place]
== END 2025-01-26 14:19 | disposition skilled nursing facility (03) | DRG 176 ==
LOC: ED 18:32 → ICU 19:34
PROVIDERS: Internal Medicine Critical Care Medicine; Emergency Provider Emergency Medicine; PCP Nurse Practitioner Family; Visit Provider Internal Medicine
DX: I26.92 Saddle embolus of pulmonary artery without acute cor pulmonale (principal); T84.093A Other 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, initial encounter; I82.411 Acute embolism and thrombosis of right femoral vein; I82.431 Acute embolism and thrombosis of right popliteal vein; I82.451 Acute embolism and thrombosis of right peroneal vein; I82.441 Acute embolism and thrombosis of right tibial vein; E83.39 Other disorders of phosphorus metabolism; J84.10 Pulmonary fibrosis, unspecified; D64.9 Anemia, unspecified; E66.9 Obesity, unspecified; D72.829 Elevated white blood cell count, unspecified; M17.12 Unilateral primary osteoarthritis, left knee; I82.461 Acute embolism and thrombosis of right calf muscular vein; R50.9 Fever, unspecified; Y79.2 Prosthetic and other implants, materials and accessory orthopedic devices associated with adverse incidents; R09.02 Hypoxemia; Z68.32 Body mass index [BMI] 32.0-32.9, adult; R53.81 Other malaise; Z79.82 Long term (current) use of aspirin
CPT/HCPCS: 36415; 71046; 71275; 80048; 80053; 81001; 83605; 83735; 83880; 84100; 84484; 85025; 85379; 85610; 85730; 86037; 86038; 86200; 86225; 86235; 86431; 87040; 87086; 87088; 87631; 93005; 93306; 93970; 94762; 97162; 97166; 99285; Q9967; A4216; J1940; J2405

== ENCOUNTER 2025-01-26 14:40 | Inpatient (IN) | payer MEDICARE, SELFPAY ==
[2025-01-26 14:51] VITALS: BP 128/66; PULSE 76; RESP 18; TEMP 36.3; O2SAT 94; BMI 32.2
--- NOTE | 2025-01-26 14:54 | PCM.HP.STD ---
HPI - General General Date of Admission: 01/26/25 Date of Service: 01/26/25 Chief Complaint: Debility HPI Narrative EDSON COOK, is a 69 Female who presents with followin01/23/2025 [facility] ED generalized weakness. Dr. Diaz performed left total knee arthroplasty 11/16/2024, ongoing left knee pain, needs revision left total knee arthroplasty femoral component 01/29/2025. Nausea for 4 to 5 days, pain i back with breathing cough for 3 days. Fever 102, covid negative, flu negative, lightheaded. Stopped wearing compression stockings, on aspirin twice daily for dvt prophylaxis. WBC 18.1, D-dimer > 20. CTA chest showed saddle embolus, CTA chest negative right heart strain, Dr. Petty recommended heparin drip, echo, NPO for thrombectomy in morning. Normal saline 2 liters IV bolus given. Pulmonary embolism, possible pulmonary infarct. 01/23/2025 Admit [facility]. IV fluids for hypotension. Heparin drip for saddle pulmonary embolism. 01/24/2025 Dyspnea on exertion, pain in knee, back. Delay revision left total knee arthroplasty femoral component 12/31 pulmonary embolism. Vascular surgery recommended no thrombectomy. Change Heparin to Eliquis 10mg bid x 7 days, then 5mg bid x 6 months. Oxygen 2 liters per nasal cannula. CTA chest showed pulmonary fibrosis. Dilaudid IV prn left knee pain. 01/24/2025 Echo EF 65%. Negative diastolic dysfunction. 01/24/2025 Doppler ultrasound positive dvt right lower extremity. 01/25/2025 No acute events overnight. Oxygen 2 liters per nasal cannula. Significant dyspnea on exertion, severe left knee pain, needs SNF on discharge. Eliquis for saddle pulmonary embolism. Lasix 40mg iv push x 1 dose. Pulmonary fibrosis: RA 20.2 mildly elevated. Anti-CCP pending. QUITA negative. ANCA pending. SCL 70 pending. double stranded DNA antibody pending. Follow up pulmonary as outpatient. Hemoglobin stable. 01/26/2025 Admit to TCU with debility, here for rehabilitation, strengthening, prior to discharge home with . [facility] Medical History (Updated 01/26/25 @ 15:[address] Scott Mcdowell MD) Failed total left knee replacement Osteoarthritis of left knee Pulmonary fibrosis Right leg DVT Saddle pulmonary embolus Acute respiratory failure with hypoxia Debility Home Medications ?Medication ?Instructions ?Recorded ?Last Taken ?Type meloxicam 7.5 mg tablet 7.5 mg PO BID pain 01/23/25 Unknown History oxycodone 5 mg tablet 5 mg PO Q4H PRN pain 01/23/25 01/23/25 History sennosides 8.6 mg tablet (senna) 17.2 mg PO DAILY PRN constipation 01/23/25 01/22/25 History vitamin E 1 applic topical DAILY to affected 01/23/25 Unknown History area apixaban 5 mg tablet (Eliquis) 5 mg PO BID blood thinner #0 tabs 01/26/25 Unknown Rx apixaban 5 mg tablet (Eliquis) 10 mg (2 x 5 mg) PO BID blood 01/26/25 Unknown Rx thinner #0 tabs oxycodone 5 mg tablet 5 mg PO Q4H PRN pain 2 days #12 01/26/25 Unknown Rx tabs Allergy/AdvReac Type Severity Reaction Status Date / Time No Known Allergies Allergy Verified 01/23/25 13:59 Surgical History History of appendectomy Total knee replacement status Social History (Updated 01/26/25 @ 15:[address] Scott Mcdowell MD) household members: spouse Smoking Status: Never smoker alcohol intake: never substance use type: does not use ROS Constitutional Constitutional: Reports weakness; Denies chills, fever(s) or weight gain ENT HEENT: Denies headache(s), nasal congestion or nasal discharge Cardiovascular Cardiovascular: Denies chest pain or palpitations Respiratory/Chest Respiratory/Chest: Reports dyspnea on exertion and shortness of breath with exertion; Denies cough or excessive phlegm production Gastrointestinal Gastrointestinal: Denies abdominal pain, nausea or vomiting Genitourinary Genitourinary: Denies dysuria Musculoskeletal Musculoskeletal: Denies joint pain or joint swelling Integumentary Integumentary: Denies rash or wounds Neurologic Neurologic: Denies focal weakness, numbness or tingling Psychiatric Psychiatric: Denies anxiety, auditory hallucinations, depression, homicidal ideation or suicidal ideation Physical Exam Const alert General Appearance: cooperative HEENT normocephalic Eyes PERRL and EOMs intact bilaterally Neck supple, no JVD and no carotid bruits Resp normal respiratory effort, normal air movement and clear to auscultation bilaterally Cardio regular rate and regular rhythm GI normal to inspection, nondistended, normoactive bowel sounds, non-tender and non-distended Extremity normal capillary refill General Extremity: Negative for edema Skin no rashes or lesions noted General Skin Exam: no breakdown Psych affect normal Appearance: appropriate Assessment & Plan Assessment/Plan (1) Debility: (2) Acute respiratory failure with hypoxia: (3) Saddle pulmonary embolus: (4) Right leg DVT: (5) Pulmonary fibrosis: (6) Osteoarthritis of left knee: (7) Failed total left knee replacement: PLAN: Plan 69 year old female with below past medical history hospitalized for acute respiratory failure with hypoxia 2/2 saddle pulmonary embolism (thrombectomy not recommended), complicated by right lower extremity dvt, pulmonary fibrosis, left total knee replacement failure, admitted to TCU with debility, here for rehabilitation, strengthening, prior to discharge home with . Debility - PT/OT. Pain - Tylenol 1000mg q6 prn pain (1-3), Tramadol 50mg q6 prn pain (4-5), Oxycodone 5mg q4 prn pain (6-10). Bowel - senna/colace 2 tablets bid, Magnesium citrate 300mL po daily prn Adult immunization - Administer pneumonia vaccine, covid vaccine, flu vaccine as appropriate. DVT prophylaxis - Eliquis. Osteoarthritis - Meloxicam 7.5mg bid, monitor for signs and symptoms of bleeding. Saddle pulmonary embolism - Eliquis 10mg bid x 7 days, then Eliquis 5mg bid thru 07/23/2025. Right lower extremity dvt - Eliquis 10mg bid x 7 dyas, then Eliquis 5mg bid thru 07/23/2025. Pulmonary fibrosis - Bloodwork evaluation pending, f/u Dr. Allred as outpatient. She has had shortness of breath with exertion for 4 years, limiting her ability to [place], she has 12 acres she likes to care for, and walking up a hill has been unable for 4 years, this is prior to pulmonary embolism. Left total knee replacement failure - schedule revision left total knee replacement femoral component with Dr. Diaz once off anticoagulation. Rash - Vitamin E topical bid.
[2025-01-26] MEDS: Meloxicam 7.5 MG Tablet PO (22:59)
[2025-01-26] MEDS: APIXABAN 5 MG TABLET 10 MG PO (23:00)
[2025-01-26] MEDS: Senna/Docusate Sodium 1 Tablet 2 TABLET PO (23:00)
[2025-01-26] MEDS: oxyCODONE 5 MG Tablet PO (23:04)
[2025-01-27] MEDS: oxyCODONE 5 MG Tablet PO ×3 (04:41→18:20)
[2025-01-27 05:35] LABS: Absolute Lymphocyte Count 1.11 X10^3/uL (0.83-4.51); Basophil# 0.05 X10^3/uL; Basophil% 0.5 % (0-1); Eosinophil# 0.27 X10^3/uL; Eosinophils% 2.5 % (0-5); Hematocrit 30.3 % (37-47); Hemoglobin 9.8 g/dL (12.0-15.0); Lymphocyte # 1.11 X10^3/ul (0.83-4.51); Lymphocyte % 10.3 % (19-41); Mean Corp Hgb Conc 32.3 g/dL (32-36); Mean Corpuscular Hgb 28.6 pg (27.0-32.0); Mean Corpuscular Volume 88.3 fL (81-99); Mean Platelet Vol. 9.8 fl (6.2-12.0); Monocyte# 1.28 X10^3/uL; Monocyte% 11.9 % (0-10); NRBC Flagged by Analyzer 0 % (0-5); Neutrophil # 7.98 X10^3/uL (2.7-7.7); Neutrophil % 74.4 % (47-70); Platelet Count 270 K/mm3 (150-450); RBC Distribution Width CV 12.8 % (11.6-14.6); RBC Distribution Width SD 41.4 fl (35.1-43.9); Red Blood Count 3.43 M/mm3 (4.2-5.4); White Blood Count 10.7 K/mm3 (4.4-11.0)
[2025-01-27 06:02] LABS: Anion Gap 10 (5-15); BUN 13 mg/dL (4-19); BUN/Creat Ratio 32.1 RATIO (10-20); Calcium 8.6 mg/dL (7.6-11.0); Carbon Dioxide 26.2 mmol/L (22.0-29.0); Chloride 100 mmol/L (96-108); Creatinine, Serum 0.41 mg/dL (0.70-1.20); EST Glomerular Filtration Rate 105 (>60); Estimated Creatinine Clearance 58.28 ml/min; Glucose 99 mg/dL (70-99); Potassium 3.4 mmol/L (3.3-5.1); Sodium Level 136 mmol/L (133-145)
[2025-01-27 10:00] VITALS: BP 109/49; PULSE 90; RESP 16; O2SAT 96
[2025-01-27] MEDS: Meloxicam 7.5 MG Tablet PO ×2 (10:03→20:06)
[2025-01-27] MEDS: Senna/Docusate Sodium 1 Tablet 2 TABLET PO ×2 (10:03→20:06)
[2025-01-27] MEDS: APIXABAN 5 MG TABLET 10 MG PO ×2 (10:04→20:05)
[2025-01-27] MEDS: Tuberculin,Purif.prot.deriv. 50 TU/ML Vial 0.1 ML ID (10:09)
[2025-01-27 11:04] VITALS: TEMP 36.6
[2025-01-27 14:28] VITALS: TEMP 37.1
--- NOTE | 2025-01-27 18:25 | NURSING ---
Addendum entered by Sheryl Hampton 01/27/25 18:56: Received and read-back telephone orders from Dr. Mcdowell for scheduled Gabapentin and PRN Baclofen for muscle spasms. Original Note: After receiving PRN oxycodone, pt states that the pain to LLE feels more like pins and needles... is throbbing than aching. States that she notices some relief with PRN Oxy, but that the pins and needles pain is consistent throughout day. Is requesting pain medication review tomorrow. Left written communication for Dr. Mcdowell.
[2025-01-27] MEDS: 0.9% Saline Lock 10 ML Syringe IV (20:09)
[2025-01-27] MEDS: traMADol 50 MG Tablet PO (22:49)
[2025-01-28] MEDS: Acetaminophen 500 MG Tablet 1000 MG PO (03:20)
[2025-01-28] MEDS: Gabapentin 100 MG Capsule PO ×3 (08:58→17:25)
[2025-01-28] MEDS: APIXABAN 5 MG TABLET 10 MG PO ×2 (08:58→22:10)
[2025-01-28] MEDS: Senna/Docusate Sodium 1 Tablet 2 TABLET PO ×2 (08:59→22:11)
[2025-01-28] MEDS: Meloxicam 7.5 MG Tablet PO ×2 (08:59→22:10)
[2025-01-28 10:00] VITALS: BP 126/51; PULSE 85; RESP 18; TEMP 36.3; O2SAT 98
[2025-01-28] MEDS: traMADol 50 MG Tablet PO ×2 (12:36→22:09)
[2025-01-28] MEDS: 0.9% Saline Lock 10 ML Syringe IV ×2 (17:26→22:09)
[2025-01-28 20:00] VITALS: PULSE 86; O2SAT 95
[2025-01-29 05:39] LABS: Hematocrit 31.1 % (37-47)
[2025-01-29 06:39] VITALS: PULSE 94; O2SAT 94
[2025-01-29] MEDS: Gabapentin 100 MG Capsule PO ×3 (09:11→17:27)
[2025-01-29] MEDS: Senna/Docusate Sodium 1 Tablet 2 TABLET PO ×2 (09:11→22:06)
[2025-01-29] MEDS: APIXABAN 5 MG TABLET 10 MG PO ×2 (09:11→22:05)
[2025-01-29] MEDS: Meloxicam 7.5 MG Tablet PO ×2 (09:11→22:05)
[2025-01-29 10:00] VITALS: BP 103/52; PULSE 97; RESP 18; TEMP 36.4; O2SAT 98
[2025-01-29 10:51] VITALS: O2SAT 97
--- NOTE | 2025-01-29 11:00 | NURSING ---
Offered covid vaccine, VIS provided. Resident declines at this time.
--- NOTE | 2025-01-29 12:25 | CASEMGMT ---
Social Work SW met with patient to complete initial assessment. Introduced self and role. Verified/updated contacts. Patient confirmed code status as full code. SW requested family provide copies of advanced directives to place on file. SW educated to [facility] insurance with NRD 3/ and continued stay is not guaranteed with each review. pt's goal is to return home with at [facility]. SW will continue to follow for DC planning. Omaira Hernandez [employer]FORMATION SYSTEMS DIRECTOR
--- NOTE | 2025-01-29 16:53 | NURSING ---
Oxygen 98% on 1L this AM. Oxygen removed this patient tolerated well. She reports she dropped into 80s while ambulating with therapy but recovered quickly after sitting. Patient had coughing episode this afternoon after startling awake and could not catch breath. electric needle specialist placed 2L of oxygen on and made this nurse aware. When this nurse evaluated her, SPO2 was 98%. Patient continued to cough but able to speak. Oxygen placed on 1L and patient denied further needs at this time.
[2025-01-29] MEDS: 0.9% Saline Lock 10 ML Syringe IV (17:30)
[2025-01-29] MEDS: oxyCODONE 5 MG Tablet PO (22:04)
[2025-01-29] MEDS: Baclofen 10 MG Tablet PO (22:05)
[2025-01-30 08:04] VITALS: BP 93/78; PULSE 103; RESP 16; TEMP 36.4; O2SAT 95
[2025-01-30 08:08] VITALS: BP 121/68; PULSE 96
[2025-01-30] MEDS: Gabapentin 100 MG Capsule PO ×3 (08:10→17:42)
[2025-01-30] MEDS: APIXABAN 5 MG TABLET 10 MG PO ×2 (08:10→21:48)
[2025-01-30] MEDS: Meloxicam 7.5 MG Tablet PO ×2 (08:10→21:49)
[2025-01-30] MEDS: Senna/Docusate Sodium 1 Tablet 2 TABLET PO (08:12)
[2025-01-30 08:33] VITALS: O2SAT 97
[2025-01-30] MEDS: 0.9% Saline Lock 10 ML Syringe IV ×2 (10:18→21:47)
[2025-01-30] MEDS: Baclofen 10 MG Tablet PO ×2 (10:22→21:53)
[2025-01-30 14:19] VITALS: BMI 31.0
--- NOTE | 2025-01-30 15:09 | PCM.PN.DRR ---
Documented by User: Anum Cody 01/30/25 15:22 TCU RX Drug Regimen Review Subjective/Objective Subjective/Objective Subjective: TCU Admission. 69 YOF presented to the ER with weakness. Hospitalized for acute respiratory failure with hypoxia 2/2 saddle pulmonary embolism (thrombectomy not recommended), complicated by right lower extremity dvt, pulmonary fibrosis, left total knee replacement failure. Admitted to TCU with debility for strengthening and rehabilitation. Objective: Allergies No Known Allergies Allergy (Verified 01/23/25 13:59) Current Medications Generic Name Dose Route Start Last Admin Trade Name Freq PRN Reason Stop Dose Admin Acetaminophen 1,000 mg 01/26/25 15:42 01/28/25 03:20 Acetaminophen 500 Mg Tablet PO 1,000 mg Q6H PRN PRN Administration Pain Score 1-3 Apixaban 10 mg 01/26/25 22:00 01/30/25 08:10 Apixaban 5 Mg Tablet PO 01/31/25 23:59 10 mg BID GABBI Administration Apixaban 5 mg 02/01/25 10:00 Apixaban 5 Mg Tablet PO 07/23/25 23:59 BID GABBI Baclofen 10 mg 01/27/25 18:53 01/30/25 10:22 Baclofen 10 Mg Tablet PO 10 mg TID PRN PRN Administration MUSCLE SPASM Gabapentin 100 mg 01/28/25 07:45 01/30/25 13:43 Gabapentin 100 Mg Capsule PO 100 mg TIDCM GABBI Administration Magnesium Citrate 300 ml 01/26/25 15:42 Magnesium Citrate 300 Ml PO DAILY PRN Constipation Meloxicam 7.5 mg 01/26/25 22:00 01/30/25 08:10 Meloxicam 7.5 Mg Tablet PO 7.5 mg BID GABBI Administration Oxycodone HCl 5 mg 01/26/25 15:02 01/29/25 22:04 Oxycodone 5 Mg Tablet PO 5 mg Q4H PRN Administration Pain Score 6-10 or Pre PT/OT Senna/Docusate Sodium 2 tablet 01/26/25 22:00 01/30/25 08:12 Senna/Docusate Sodium 1 Tablet PO 2 tablet BID GABBI Administration Sodium Chloride 10 - 40 ml 01/26/25 14:58 01/30/25 10:18 0.9% Saline Lock 10 Ml Syringe IV 10 ml UD PRN Administration SALINE FLUSH Tramadol HCl 50 mg 01/26/25 15:42 01/28/25 22:09 Tramadol 50 Mg Tablet PO 50 mg Q6H PRN PRN Administration Pain Score 4-5 or Pre PT/OT Tuberculin PPD 0.1 ml 02/03/25 10:00 Tuberculin,Purif.Prot.Deriv. 50 Tu/Ml Vial ID 02/03/25 10:01 X1 ONE Problem List Failed total left knee replacement (Acute) Osteoarthritis of left knee (Acute) Pulmonary fibrosis (Acute) Right leg DVT (Acute) Saddle pulmonary embolus (Acute) Acute respiratory failure with hypoxia (Acute) Debility (Acute) Vital Signs Temp Pulse Resp BP Pulse Ox O2 Del Method O2 Flow Rate 97.5 F L 96 16 121/68 H 97 Nasal Cannula 0.5 01/30/25 08:04 01/30/25 08:08 01/30/25 08:04 01/30/25 08:08 01/30/25 08:33 01/30/25 11:50 01/30/25 11:50 Oxygen Flow Rate (L/min) 0.5 Oxygen Delivery Method Nasal Cannula Weight: 72.03 kg Body Mass Index (BMI) 31.0 Sodium 136 mmol/L (133-145) 01/27/25 04:22 Potassium 3.4 mmol/L (3.3-5.1) 01/27/25 04:22 Carbon Dioxide 26.2 mmol/L (22.0-29.0) 01/27/25 04:22 Anion Gap 10 (5-15) 01/27/25 04:22 BUN 13 mg/dL (4-19) 01/27/25 04:22 Creatinine 0.41 mg/dL (0.70-1.20) L 01/27/25 04:22 Est GFR (MDRD) Non-Af 105 (>60) 01/27/25 04:22 BUN/Creatinine Ratio 32.1 RATIO (10-20) H 01/27/25 04:22 Glucose 99 mg/dL (70-99) 01/27/25 04:22 Assessment/Plan: 1. Pain/arthritis: meloxicam 7.5mg PO BID, acetaminophen 1000mg PO Q6H PRN pain 1-3, tramadol 50mg PO Q6H PRN pain 4-5 and oxycodone 5mg PO Q4H PRN pain 6-10. Resident has had 1 dose of acetaminophen, 3 doses of tramadol and 5 doses of oxycodone for pain scores of 5-7 in the knee/thigh. Please continue to monitor for increased pain, PRN usage, constipation, respiratory depression, renal function, S/S of bleeding, falls (BEERs). 2. Bowel: senna/docusate 2T PO BID and magnesium citrate 300mL PO daily PRN constipation. No PRN doses have been given. Please continue to monitor for constipation and PRN usage. Last documented bowel movement was 01/30. 3. Saddle pulmonary embolism/RLE DVT: apixaban 10mg PO BID x 7 days, then 5mg PO BID thru 07/23/25. Please continue to monitor for S/S of bleeding, SOB, leg pain and hemoglobin (last 10g/dL). 4. Muscle spasms: baclofen 10mg PO QHS PRN muscle spasms. Resident has had 2 doses. Please continue to monitor for PRN usage, muscle spasms, hypotonia, drowsiness. Assessment/Plan for indications treated with psychotropic medications: 1. Neuropathic pain (pt reported pins and needles feeling per nursing note): gabapentin 100mg Po BIDCM. GDR not appropriate as this medication was just started. Please continue to monitor for increased pain, renal function, falls/fractures (BEERs). Medical chart and medication regimen reviewed. The following medication irregularities or issues were identified: None Date Date of Note: 01/30/25 Documented by User: Dr. Scott Mcdowell MD 01/30/25 15:28 TCU RX Drug Regimen Review Provider Comments Provider responsibility Provider Comments to Recommendations by Pharmacy Agree
[2025-01-30 15:16] VITALS: O2SAT 97
[2025-01-30] MEDS: traMADol 50 MG Tablet PO (21:55)
[2025-01-30 22:00] VITALS: PULSE 82; O2SAT 96
[2025-01-31 06:56] VITALS: PULSE 90; O2SAT 95
--- NOTE | 2025-01-31 08:44 | NURSING ---
Director Of Agriculture Note; Activity Asset: Jack Black is independent in her choice of daily activities. 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 She will work from her room and prefers to do in room activities at this time. She has all her electronics, books, tv and will read when not resting or in therapy. She welcomes visits from the therapy dog when available. Staff will remind her of daily activities and respect her right to say no.
[2025-01-31] MEDS: APIXABAN 5 MG TABLET 10 MG PO ×2 (09:08→22:03)
[2025-01-31] MEDS: Gabapentin 100 MG Capsule PO ×3 (09:08→17:25)
[2025-01-31] MEDS: Meloxicam 7.5 MG Tablet PO ×2 (09:08→22:03)
[2025-01-31 09:10] VITALS: BP 123/59; PULSE 89; RESP 16; TEMP 36.4; O2SAT 98
--- NOTE | 2025-01-31 09:44 | CASEMGMT ---
Social Work IDT met with patient and for care plan meeting. Discussed patient's progress in PT/OT/SN. Educated to [facility] insurance with 02/06, with [facility] 02/08. Provided pt with written communication on insurance process and copay coverage during stay. Pt's goal is to return home with once she returns to PLOF. Pt and work full-time. Pt's goal is to wean off O2 prior to returning home. SW answered further insurance questions. SW to assist with DC plans. Pt expressed satisfaction with [facility] System and would like to move providers within [facility]. SW provided Healthcare Provider Directory and educated to researching INN providers with [facility]. Pt and appreciative. Omaira Hernandez MSW EXTRACT MIXER
[2025-01-31 11:46] VITALS: O2SAT 97
--- NOTE | 2025-01-31 16:51 | CHAPLAIN ---
Type of Pastoral Visit _x__ Initial Visit ___ Follow-up Visit ___ On-call Visit ___ General Patient Visit ___ Spiritual Assessment ___ Family Conference ___ Bereavement ___ Rapid Response ___ Code Blue ___ Other (describe below) Pastoral Care Referral From _x__ Patient ___ Family ___ Nurse ___ Physician ___ Cellar Worker ___ Furnace Mechanic Helper ___ Other (describe below) Sacrament/Intervention _x__ Active listening ___ Anointing ___ Restoration ___ Bereavement ___ Communion ___ Kaylan exploration ___ _x__ Life review _x__ Prayer ___ Reconciliation ___ Sacrament of Sick ___ Supportive presence ___ Wedding ___ Other (describe below) Pastoral Comments patient had been seen before in the hospital side; pt has made some progress; pt acknowledges great support from family and friends; pt has numerous reno in the room; 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
[2025-01-31 19:53] VITALS: BP 122/47; PULSE 94; RESP 16; TEMP 36.9; O2SAT 97
--- NOTE | 2025-01-31 19:55 | NURSING ---
Patient utilized call light and told TURF FARM WORKER she could not catch her breath and was having a coughing spell. TURF FARM WORKER notified this nurse immediately, this nurse quickly entered patient's room. Patient stated to this nurse, it's so dry. This nurse obtained vitals. SpO2 at 90% on 0.5L O2 NC. This nurse bumped patient up to 1L O2 NC. Patient responded quickly with, I feel something now, that's better. Vitals WNL, refer to worklist. This nurse asked patient if the cough was new. Patient reported she has had this for awhile now and it is always worse when her mouth is dry. Patient described cough as a dry cough, non-productive. Patient denies fever/chills or any other symptoms at this time. This nurse offered patient fresh ice water. Patient stated, yes, that would be great. Fresh water given to patient. Patient reports she feels much better now. Patient denies further assistance and verbalized understanding to use call light if symptoms continue or worsen. Call light within reach.
[2025-01-31] MEDS: Baclofen 10 MG Tablet PO (22:02)
[2025-01-31] MEDS: traMADol 50 MG Tablet PO (22:02)
[2025-01-31] MEDS: 0.9% Saline Lock 10 ML Syringe IV (22:10)
[2025-02-01 08:50] VITALS: BP 118/57; PULSE 89; RESP 18; TEMP 36.2; O2SAT 98
[2025-02-01] MEDS: Senna/Docusate Sodium 1 Tablet 2 TABLET PO (08:50)
[2025-02-01] MEDS: APIXABAN 5 MG TABLET PO ×2 (08:50→20:47)
[2025-02-01] MEDS: Gabapentin 100 MG Capsule PO ×2 (08:50→11:56)
[2025-02-01] MEDS: Meloxicam 7.5 MG Tablet PO ×2 (08:50→20:48)
[2025-02-01 10:00] VITALS: PULSE 89; O2SAT 99
--- NOTE | 2025-02-01 11:58 | CASEMGMT ---
Social Work SW completed BIMS () and PHQ-2 () for MDS assessment. Pt expressed feeling frustrated with the need for O2 and increased heart rate. SW validated feelings. Encouraged pt with progress in PT/OT. Offered ongoing supportive visits as needed. Omaira Hernandez TYING IN MACHINE OPERATOR HADOOP INFRASTRUCTURE ARCHITECT
[2025-02-01 14:44] VITALS: O2SAT 97
[2025-02-01] MEDS: Gabapentin 100 MG Capsule 200 MG PO (16:53)
[2025-02-01] MEDS: 0.9% Saline Lock 10 ML Syringe IV (16:53)
[2025-02-01] MEDS: traMADol 50 MG Tablet PO (20:46)
[2025-02-01] MEDS: Baclofen 10 MG Tablet PO (20:47)
[2025-02-02 05:55] LABS: Absolute Lymphocyte Count 1.29 X10^3/uL (0.83-4.51); Absolute Neutrophil Count 5.2 X10^3/uL (2.0-7.7); Basophil# 0.09 X10^3/uL; Basophil% 1.1 % (0-1); Eosinophil# 0.49 X10^3/uL; Eosinophils% 6.1 % (0-5); Hematocrit 32.8 % (37-47); Hemoglobin 10.4 g/dL (12.0-15.0); Lymphocyte # 1.29 X10^3/ul (0.83-4.51); Lymphocyte % 16.1 % (19-41); Mean Corp Hgb Conc 31.7 g/dL (32-36); Mean Corpuscular Hgb 28.6 pg (27.0-32.0); Mean Corpuscular Volume 90.1 fL (81-99); Mean Platelet Vol. 9.3 fl (6.2-12.0); Monocyte# 0.82 X10^3/uL; Monocyte% 10.2 % (0-10); NRBC Flagged by Analyzer 0 % (0-5); Neutrophil # 5.22 X10^3/uL (2.7-7.7); Neutrophil % 65.3 % (47-70); Platelet Count 520 K/mm3 (150-450); RBC Distribution Width CV 13.2 % (11.6-14.6); RBC Distribution Width SD 43.8 fl (35.1-43.9); Red Blood Count 3.64 M/mm3 (4.2-5.4)
[2025-02-02 06:55] LABS: Anion Gap 11 (5-15); BUN 13 mg/dL (4-19); BUN/Creat Ratio 25.7 RATIO (10-20); Calcium 9.3 mg/dL (7.6-11.0); Chloride 104 mmol/L (96-108); Creatinine, Serum 0.51 mg/dL (0.70-1.20); EST Glomerular Filtration Rate 100 (>60); Estimated Creatinine Clearance 57.13 ml/min (50-250); Glucose 102 mg/dL (70-99); Potassium 4.5 mmol/L (3.3-5.1); Sodium Level 140 mmol/L (133-145)
--- NOTE | 2025-02-02 08:28 | NURSING ---
Modeling Analyst Note; MDS for 02/02/2025 Complete
[2025-02-02] MEDS: Gabapentin 100 MG Capsule 200 MG PO ×3 (08:45→17:22)
[2025-02-02] MEDS: Meloxicam 7.5 MG Tablet PO ×2 (08:45→22:08)
[2025-02-02] MEDS: APIXABAN 5 MG TABLET PO ×2 (08:45→22:07)
[2025-02-02 09:00] VITALS: BP 109/69; PULSE 91; RESP 18; TEMP 36.4; O2SAT 98
[2025-02-02 14:36] VITALS: O2SAT 95
[2025-02-02] MEDS: traMADol 50 MG Tablet PO (22:07)
[2025-02-02] MEDS: 0.9% Saline Lock 10 ML Syringe IV (22:08)
[2025-02-02] MEDS: Baclofen 10 MG Tablet PO (22:10)
[2025-02-02 22:11] VITALS: PULSE 81; RESP 16
[2025-02-03] MEDS: Gabapentin 100 MG Capsule 200 MG PO ×3 (07:57→16:49)
[2025-02-03] MEDS: APIXABAN 5 MG TABLET PO ×2 (07:58→22:13)
[2025-02-03] MEDS: Meloxicam 7.5 MG Tablet PO ×2 (07:58→22:13)
[2025-02-03] MEDS: Tuberculin,Purif.prot.deriv. 50 TU/ML Vial 0.1 ML ID (10:14)
[2025-02-03] MEDS: 0.9% Saline Lock 10 ML Syringe IV ×2 (10:16→22:16)
[2025-02-03 10:25] VITALS: BP 115/57; PULSE 78; RESP 18; TEMP 36.3; O2SAT 97
[2025-02-03 16:44] VITALS: O2SAT 98
[2025-02-03] MEDS: traMADol 50 MG Tablet PO (22:13)
[2025-02-04 07:05] VITALS: O2SAT 96
[2025-02-04] MEDS: Gabapentin 100 MG Capsule 200 MG PO ×3 (08:35→17:54)
[2025-02-04] MEDS: APIXABAN 5 MG TABLET PO ×2 (08:37→22:22)
[2025-02-04] MEDS: Meloxicam 7.5 MG Tablet PO ×2 (08:37→22:22)
[2025-02-04 08:38] VITALS: BP 117/54; PULSE 91; RESP 18; TEMP 36.4; O2SAT 99
[2025-02-04] MEDS: 0.9% Saline Lock 10 ML Syringe IV (20:17)
[2025-02-04] MEDS: Senna/Docusate Sodium 1 Tablet 2 TABLET PO (22:22)
[2025-02-04] MEDS: Baclofen 10 MG Tablet PO (22:23)
[2025-02-04] MEDS: traMADol 50 MG Tablet PO (22:23)
[2025-02-05 06:30] VITALS: PULSE 84; O2SAT 96
[2025-02-05 08:44] VITALS: BP 117/51; PULSE 87; RESP 18; TEMP 36.4; O2SAT 97
[2025-02-05] MEDS: Gabapentin 100 MG Capsule 200 MG PO ×3 (08:46→17:07)
[2025-02-05] MEDS: Meloxicam 7.5 MG Tablet PO ×2 (08:47→22:12)
[2025-02-05] MEDS: APIXABAN 5 MG TABLET PO ×2 (08:47→22:12)
[2025-02-05] MEDS: 0.9% Saline Lock 10 ML Syringe IV (08:50)
[2025-02-05 09:37] VITALS: O2SAT 98
[2025-02-05 11:09] VITALS: O2SAT 95
[2025-02-05] MEDS: traMADol 50 MG Tablet PO (22:10)
[2025-02-05] MEDS: Baclofen 10 MG Tablet PO (22:10)
[2025-02-05] MEDS: Senna/Docusate Sodium 1 Tablet 2 TABLET PO (22:11)
--- NOTE | 2025-02-06 08:07 | MDS.RN ---
Information for the MDS was obtained from review of the clinical record, interview of resident, staff, and direct observation of resident?s care.
[2025-02-06 08:36] VITALS: BP 96/58; PULSE 81; RESP 17; TEMP 36.6; O2SAT 98
[2025-02-06 08:37] VITALS: BP 116/60; PULSE 80
[2025-02-06] MEDS: Meloxicam 7.5 MG Tablet PO ×2 (08:39→21:20)
[2025-02-06] MEDS: Gabapentin 100 MG Capsule 200 MG PO ×4 (08:39→21:18)
[2025-02-06] MEDS: APIXABAN 5 MG TABLET PO ×2 (08:39→21:19)
[2025-02-06] MEDS: 0.9% Saline Lock 10 ML Syringe IV ×2 (08:40→21:21)
[2025-02-06 09:10] VITALS: PULSE 80; RESP 16; O2SAT 98
[2025-02-06 09:47] VITALS: BMI 30.4
--- NOTE | 2025-02-06 13:30 | CASEMGMT ---
Addendum entered by Omaira Hernandez 02/07/25 11:37: SW followed up with pt on HHC preference. Pt prefers [facility]. [facility] Original Note: Social Work Insurance issued LCD 02/08, DC 02/09 SW spoke with pt about DC date. Explained appeal rights. Pt is electing to appeal. Pt expressed nervousness about returning home at this time, specifically d/t pt's need for O2. Pt has f/u appt 02/12, that she would prefer to remain in TCU through that appt. SW educated further to appeal specifics. Pt to place phone call shortly. SW will coordinate skilled HHC and O2 through [facility]. SW provided pt with printed list of skilled HHC agencies including quality and resource data via [employer]. Pt to notify this worker with selections. Pt began complimenting her experience in TCU thus far and wanted to recognize several staff members. SW informed of [facility] employee recognition program. Pt became tearful when talking about her experience. SW provided active listening and appreciative of pt's gratitude. 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 SW discussed further with pt's feelings, reframed mindset to positivity and ways to have difficult discussions with family members. Pt appreciative of time and insight from this worker. - Pt filed appeal. Received [facility] fax - Medical records sent to [facility] to process. - Referral sent to [facility] via [employer] for O2. SW will continue to follow for outcome. Plan: DC home with 02/09, pending appeal, HHC PT/OT/SN, O2 Omaira Hernandez PYROTECHNIC MIXER HANDY WORKER
[2025-02-06 16:14] VITALS: O2SAT 95
--- NOTE | 2025-02-06 18:27 | NURSING ---
pt c/o edematous LT knee, pt not sure if it was from working it more than usual in therapy or if something else is wrong. area edematous around entire knee, flaky skin. no redness but definitely painful at rest and w/activity. dr rogel assessed, new order for doppler of LLE. pt on eliquis for DVT in RLE. pt updated and agreeable. ICE applied to area per pt request.
--- NOTE | 2025-02-06 19:45 | PCM.DC.SUM ---
Providers Date of Admission: 01/26/25 Primary Care Physician: Lori Jorgensen, DEPUTY ASSESSOR-C Reason For Visit: SADDLE PE Diagnosis Discharge Diagnosis (1) Debility: Status: Acute Code(s): R53.81 - Other malaise (2) Acute respiratory failure with hypoxia: Status: Acute Code(s): J96.01 - Acute respiratory failure with hypoxia (3) Saddle pulmonary embolus: Status: Acute Code(s): I26.92 - Saddle embolus of pulmonary artery without acute cor pulmonale (4) Right leg DVT: Status: Acute Code(s): I82.401 - Acute embolism and thrombosis of unspecified deep veins of right lower extremity (5) Pulmonary fibrosis: Status: Acute Code(s): J84.10 - Pulmonary fibrosis, unspecified (6) Osteoarthritis of left knee: Status: Acute Code(s): M17.12 - Unilateral primary osteoarthritis, left knee (7) Failed total left knee replacement: Status: Acute Code(s): T84.093A - Other 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, initial encounter Plan 69 year old female with below past medical history hospitalized for acute respiratory failure with hypoxia 2/2 saddle pulmonary embolism (thrombectomy not recommended), complicated by right lower extremity dvt, pulmonary fibrosis, left total knee replacement failure, admitted to TCU with debility, here for rehabilitation, strengthening, prior to discharge home with . Debility - PT/OT. Pain - Tylenol 1000mg q6 prn pain (1-3), Tramadol 50mg q6 prn pain (4-5), Oxycodone 5mg q4 prn pain (6-10). Bowel - senna/colace 2 tablets bid, Magnesium citrate 300mL po daily prn Adult immunization - Administer pneumonia vaccine, covid vaccine, flu vaccine as appropriate. DVT prophylaxis - Eliquis. Osteoarthritis - Meloxicam 7.5mg bid, monitor for signs and symptoms of bleeding. Saddle pulmonary embolism - Eliquis 10mg bid x 7 days, then Eliquis 5mg bid thru 07/23/2025. Right lower extremity dvt - Eliquis 10mg bid x 7 dyas, then Eliquis 5mg bid thru 07/23/2025. Pulmonary fibrosis - Bloodwork evaluation pending, f/u Dr. Allred as outpatient. She has had shortness of breath with exertion for 4 years, limiting her ability to garden [place] on [place], she has 12 acres she likes to care for, and walking up a hill has been unable for 4 years, this is prior to pulmonary embolism. Left total knee replacement failure - schedule revision left total knee replacement femoral component with Dr. Diaz once off anticoagulation. Rash - Vitamin E topical bid. Medications at Discharge Home Medications apixaban 5 mg tablet (Eliquis) 5 mg PO BID 30 days #60 tabs 02/06/25 baclofen 10 mg tablet 10 mg PO TID PRN PRN Muscle Spasm 30 days #90 tabs 02/06/25 gabapentin 100 mg capsule 200 mg (2 x 100 mg) PO QHS 30 days #60 caps 02/06/25 gabapentin 100 mg capsule 200 mg (2 x 100 mg) PO TIDCM 30 days #180 caps 02/06/25 tramadol 50 mg tablet 50 mg PO Q6H PRN PRN Pain Score 4-5 Or Pre Pt/Ot 7 days #28 tabs 02/06/25 Hospital Course Operations None Procedures None Summary of Care Provided Minutes Spent on Discharge: 35 Hospital Course: 69 year old female with below past medical history hospitalized for acute respiratory failure with hypoxia 2/2 saddle pulmonary embolism (thrombectomy not recommended), complicated by right lower extremity dvt, pulmonary fibrosis, left total knee replacement failure, admitted to TCU with debility, here for rehabilitation, strengthening, prior to discharge home with . 02/06/2025 Left knee swelling, order Doppler ultrasound left lower extremity to evaluate for dvt. Discharge home with 02/09/2025, pending appeal, [facility] PT/OT/SN, Oxygen. Oxygen: Patient requires 2 LPM of oxygen via nasal cannula d/t saddle pulmonary embolism, pulmonary fibrosis; requires a concentrator and portable O2 tanks to allow patient to be mobile in the home and the community; O2 will improve the patient condition in the home setting. Physical Exam Const alert General Appearance: cooperative HEENT normocephalic Eyes PERRL and EOMs intact bilaterally Neck supple, no JVD and no carotid bruits Resp normal respiratory effort, normal air movement and clear to auscultation bilaterally Cardio regular rate and regular rhythm GI normal to inspection, nondistended, normoactive bowel sounds, non-tender and non-distended Extremity normal capillary refill General Extremity: Negative for edema Skin no rashes or lesions noted General Skin Exam: no breakdown Psych affect normal Appearance: appropriate Weight / BMI Weight Weight: 70.789 kg Body Mass Index (BMI) 30.4 ABG / Lab / Microbiology Data 02/02/25 05:13 02/02/25 05:13 D/C Instructions Discharge Diet: No restrictions Discharge Activity: Return to Normal Activity, May Shower and Use Walker Weight Bearing Status: Weight bearing as tolerated Call your doctor if you observe: Fever of 101 or Higher, Inability to urinate, Inability to have a bowel movement, Shortness of breath, Dizziness, Fainting spells, Swelling in the ankles, Chest pain and Uncontrolled pain DC O2, CPAP, BIPAP Needs PSN CPAP & BiPAP: BiPAP & CPAP Settings per PSN Fraction of Inspired Oxygen ( 96 02/02/25 22:11 FIO2) Home O2 Discharge instructions: Yes Type of respiratory needs?: Oxygen Oxygen frequency: Continuous Continuous oxygen liters per minute: 2 DC home with Oxygen: Yes Home O2 MD Review: I have reviewed the oxygen testing, and the patient qualifies for home oxygen equipment and portability. The patient is mobile in the home and the community. Please Follow Up With: Cindy Guerrier NP When: 02/12/2025. Meaningful Use Info Meaningful Use Meaningful Use Diagnoses (Choose all that apply): None applicable Ischemic Stroke Statin Dosing Therapy Reference: STATIN DOSE THERAPY REFERENCE: * Patients > 75 years receive moderate or high dose statin therapy. * Patients 75 years or YOUNGER should receive HIGH intensity statin dose unless contraindicated. You will be required to document reason for non-treatment if statin daily dose does not meet guidelines. HIGH DOSE STATIN THERAPY DAILY Atorvastatin > than or = to 40 mg Rosuvastatin > than or = to 20 mg Amlodipine + Atorvastatin > than or = to 2.5/40 mg Ezetimibe + Simvastatin 10/80 mg Simvastatin 80mg Discharge Plan Admission Admit Date/Time: 01/26/25 14:40 Primary Reason for Your Visit: Debility. Attending Provider: Scott Mcdowell Chi Primary Care Provider: Lori Jorgensen Instructions Additional Instructions / Restrictions: Discharge home with 02/09/2025, pending appeal, [facility] PT/OT/SN, Oxygen. Oxygen: Patient requires 2 LPM of oxygen via nasal cannula d/t saddle pulmonary embolism, pulmonary fibrosis; requires a concentrator and portable O2 tanks to allow patient to be mobile in the home and the community; O2 will improve the patient condition in the home setting. Discharge Orders/Prescriptions Prescriptions: New tramadol 50 mg Tablet 50 mg PO Q6H PRN PRN (Reason: Pain Score 4-5 Or Pre Pt/Ot) 7 Days Qty: 28 0RF baclofen 10 mg Tablet 10 mg PO TID PRN PRN (Reason: Muscle Spasm) 30 Days Qty: 90 0RF gabapentin 100 mg Capsule 200 mg PO QHS 30 Days Qty: 60 0RF gabapentin 100 mg Capsule 200 mg PO TIDCM 30 Days Qty: 180 0RF Eliquis 5 mg Tablet 5 mg PO BID 30 Days Qty: 60 0RF Discontinued oxycodone 5 mg tablet 5 mg PO Q4H PRN (Reason: pain) Patient Comments: TAKES 5MG TID meloxicam 7.5 mg tablet 7.5 mg PO BID Patient Comments: PT STATES SHE HASN'T TAKEN THIS IN A FEW DAYS vitamin E Oil 1 applic topical DAILY sennosides [senna] 8.6 mg tablet 17.2 mg PO DAILY PRN (Reason: constipation) Eliquis 5 mg Tablet 10 mg PO BID Qty: 0 0RF Rx Instructions: Last day for this dose is 02/01/2020 5 in the PM Eliquis 5 mg Tablet 5 mg PO BID Qty: 0 0RF Rx Instructions: To start on 02/01/2025 oxycodone 5 mg tablet 5 mg PO Q4H PRN (Reason: pain) 2 Days Qty: 12 0RF Referrals / Follow Up: Scott Mcdowell Chi, MD [Med Staff - Active Staff] - Within 1 Week (New patient appointment/TCU TCM) Disposition Disposition (needs filled in before D/C Order can be placed): Home Health Service
[2025-02-06] MEDS: Senna/Docusate Sodium 1 Tablet 2 TABLET PO (21:19)
[2025-02-06] MEDS: Baclofen 10 MG Tablet PO (22:20)
[2025-02-06] MEDS: traMADol 50 MG Tablet PO (22:20)
[2025-02-07 08:15] VITALS: O2SAT 90; O2SAT 95
[2025-02-07] MEDS: Gabapentin 100 MG Capsule 200 MG PO ×4 (08:15→21:29)
[2025-02-07] MEDS: Meloxicam 7.5 MG Tablet PO ×2 (08:16→21:30)
[2025-02-07] MEDS: APIXABAN 5 MG TABLET PO ×2 (08:17→21:30)
[2025-02-07 08:20] VITALS: BP 105/68; PULSE 68; RESP 18; TEMP 36.5; O2SAT 97
[2025-02-07 10:30] VITALS: PULSE 86; RESP 18; O2SAT 97
[2025-02-07] MEDS: 0.9% Saline Lock 10 ML Syringe IV (10:52)
[2025-02-07 10:54] VITALS: PULSE 121; O2SAT 90
--- NOTE | 2025-02-07 11:38 | NURSING ---
PT HEART RATE FROM 01/28/25 TO TODAY RANGES FROM 68-94 AT REST. WHEN UP WITH ACTIVITY RANGES 100-121. THERAPY REPORTED IT GOT UP TO 135 AT ONE POINT TODAY. RN AWARE AND NOTE LEFT FOR . WILL CONTINUE TO MONITOR .
--- NOTE | 2025-02-07 12:14 | CASEMGMT ---
BIMS () and PHQ2 () interviews completed on this date for MDS assessment. ALEKS Gutierres
--- NOTE | 2025-02-07 13:56 | NURSING ---
DOPPLER DONE TO RT LEG DUE TO SWELLING AND PAIN. DOPPLER NEGATIVE. NOTE LEFT FOR .
[2025-02-07 14:50] VITALS: PULSE 110; O2SAT 92
--- NOTE | 2025-02-07 14:50 | NURSING ---
WITH PT AND DOING HOME 02 QUALIFICATIONS. PT AT REST AND OXYGEN RANGING 92-95% RA. WALKING PT IN ROOM AND IN [place] OUT SIDE PT ROOM DOOR ON ROOM AIR AND BACK IN TO ROOM. PT OXYGEN RANGED 88-91%. PT STATED SHE FELT SOB. SAT PT DOWN AND PLACED OXYGEN ON PT AT 1L. OXYGEN CAME BACK UP TO 93% AND PT STATED SHE FELT BETTER. P.T THERAPY WAS NOTIFIED BEFORE PT THERAPY AND THIS NURSE STATED THAT PT CAN TRY THERAPY WITH OUT HER O2 TO SEE HOW SHE DOES. WITH PT AGREEMENT. THERAPY CAME TO THIS NURSE AFTER PT THERAPY AND STATED THEY HAD PT OXYGEN OFF AT THE BEGINNING OF THERAPY AND PT WAS 91-92% AND THEN CLOSE TO END OF THERAPY PT OXYGEN WENT DOWN TO 83% AND HER HEART RATE WENT UP TO 135 AND PT STATED SHE WAS SHORT OF BREATH. THERAPY STATED THEY PUT 1L OF 02 ON PT AND BROUGHT PT BACK TO ROOM BY WHEEL CHAIR. THIS NURSE TO PT ROOM,PT IN RECLINER AND ASKED PT HOW SHE WAS FEELING. PT STATED I FEEL A LITTLE BETTER. OXYGEN AT THIS TIME WAS 92% ON 1L AT REST HEART RATE DOWN TO 110. CONTINUED TO MONITOR PT THREW SHIFT AND PT DID WELL WITH O2 OFF WHILE SITTING BUT WHEN PT WOULD GET UP TO WALK TO BATHROOM PT OXYGEN WOULD DROP TO AROUND 88% ROOM AIR. STATED TO PT SHE COULD TAKE OXYGEN OFF WHILE SITTING WHEN SHE FELT BETTER OR WHEN HER OXYGEN WAS 90% OR ABOVE BUT TO PUT 02 BACK ON WHEN SHE WOULD GET UP WITH ANY ACTIVITY. PT AGREED. PT HAS OWN 02 FINGER MONITOR. NOTE LEFT FOR ON PT OXYGEN AND HEART RATE. RN AWARE
--- NOTE | 2025-02-07 14:59 | CASEMGMT ---
Social Work SW received notification from [employer] via fax that pt lost her appeal. - SW spoke with pt to update. Pt still expressed concern with returning home with her medical complications. SW revisited paying privately for pt to remain through Pulmonary appt 02/12 at $660/day and funds would need to be provided up front. Pt to discuss with her this evening. Pt inquired about differences in coverage between managed Medicare and traditional Medicare coverage. SW provided extensive education and answered pt's questions. Pt expressed appreciation for the information. SW will continue to follow to finalize DC plans. Omaira Hernandez MIX CHEMIST MEDIA PLANNER / BUYER
[2025-02-07 15:05] VITALS: O2SAT 83; O2SAT 92; O2SAT 95
[2025-02-07] MEDS: Senna/Docusate Sodium 1 Tablet 2 TABLET PO (21:30)
[2025-02-07] MEDS: Baclofen 10 MG Tablet PO (22:31)
[2025-02-07] MEDS: traMADol 50 MG Tablet PO (22:31)
[2025-02-08 07:17] VITALS: O2SAT 95
[2025-02-08] MEDS: Gabapentin 100 MG Capsule 200 MG PO ×4 (08:25→21:46)
[2025-02-08] MEDS: APIXABAN 5 MG TABLET PO ×2 (08:29→21:46)
[2025-02-08] MEDS: Meloxicam 7.5 MG Tablet PO ×2 (08:29→21:47)
[2025-02-08 08:33] VITALS: BP 103/57; PULSE 99; RESP 18; TEMP 36.6; O2SAT 95
[2025-02-08 09:26] VITALS: O2SAT 95
--- NOTE | 2025-02-08 09:58 | NURSING ---
Order for CTA chest to evaluate if PE resolved. No auth needed, order faxed to CT. Updated resident.
--- NOTE | 2025-02-08 11:04 | MDS.RN ---
Pain assessment for MDS complete.
--- NOTE | 2025-02-08 13:16 | NURSING ---
PT ASKING THIS NURSE ABOUT HER RESULTS, GAVE PT INFORMATION FROM RESULTS AND PT HAD A LOT OF QUESTIONS. ANSWERED TO BEST OF MY KNOWLEDGE AND STATED TO PT THAT SHE HAS THE FOLLOW UP WITH PULMONARY ON 02/12/25 AND AND TO WRITE ALL HER QUESTIONS DOWN AND ASK AT HER APPOINTMENT. PT STATED OK. PT ALSO STATED SHE NEVER KNEW SHE HAD LUNG PROBLEMS TILL HER HOSPITAL STAY AND STATED WHY DID AND HOW DID I GET LUNG PROBLEMS. PT TEARY EYED STATED RYAN NEVER GOING TO BE ABLE TO DO ANY THING LIKE I DID BEFORE DUE TO MY SOB AND HEART RATE GOING SO HIGH. STATED TO PT DO NOT LET THIS STOP YOU. YOU MAY HAVE TO MAKE SOME ADJUSTMENTS AND THEN START AGAIN AND YOUR PULMONARY DR. WILL HELP YOU. PT STATED SHE IS SCARED ABOUT GOING HOME AND LOW ON OXYGEN AT NIGHT. STATED TO PT SHE WILL HAVE A OVER NIGHT PULSE OX TONIGHT. DID A LITTLE MORE ONE ON ONE WITH PT. PT STATED THANK YOU. LEFT A NOTE AND ASKED IF HE WOULD STOP IN TO SEE PT. RN AWARE
--- NOTE | 2025-02-08 15:26 | CASEMGMT ---
Social Work SW notified by nursing of pt's change in condition and order for CT scan. SW spoke with pt at bedside. provided emotional support to pt. pt expressed ongoing angst and longing for answers with medical condition. SW empathized with pt. Pt more uncertain about discharging home. Wants to wait for CT results. - Pt's CT results were negative. SW revisited with pt. Pt participated in therapy today. Still needing O2 with exertion. pt expressed frustration with great fatigue while doing tasks such as showering, brushing her teeth. Pt became emotional. SW provided supportive listening. Validated feelings. Acknowledged the difficulty with making adjustments to lifestyle and not having answers. 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 SW provided emotional support and reassurance with improvement. Encouraged pt to remain future oriented, slowing down, listening to her body, knowing her triggers to trigger her medical reactions, and being conservative in activities until medical solution can be reached. SW expressed understanding and appreciative of ongoing support. Pt still uncertain of her DC and requested to speak with Dr. Mcdowell. SW agreed. Pt to notify this worker tomorrow morning (day of DC) of plan. SW will continue to follow. - Nursing had written communication to to visit pt. Omaira Hernandez BULLET ASSEMBLY PRESS SETTER OPERATOR ACTUARIAL MATHEMATICIAN
[2025-02-08 16:11] VITALS: O2SAT 96
[2025-02-08 19:10] VITALS: PULSE 91; O2SAT 96
[2025-02-08 21:00] VITALS: PULSE 84; RESP 16; O2SAT 96
[2025-02-08] MEDS: Senna/Docusate Sodium 1 Tablet 2 TABLET PO (21:47)
[2025-02-08] MEDS: 0.9% Saline Lock 10 ML Syringe IV (21:48)
[2025-02-08] MEDS: Baclofen 10 MG Tablet PO (22:08)
[2025-02-08] MEDS: traMADol 50 MG Tablet PO (22:08)
[2025-02-09] MEDS: Acetaminophen 500 MG Tablet 1000 MG PO (01:23)
[2025-02-09 05:53] LABS: Absolute Lymphocyte Count 1.04 X10^3/uL (0.83-4.51); Absolute Neutrophil Count 6.2 X10^3/uL (2.0-7.7); Basophil# 0.11 X10^3/uL; Basophil% 1.3 % (0-1); Eosinophils% 5.9 % (0-5); Hemoglobin 10.9 g/dL (12.0-15.0); Lymphocyte # 1.04 X10^3/ul (0.83-4.51); Lymphocyte % 12.3 % (19-41); Mean Corp Hgb Conc 31.1 g/dL (32-36); Mean Corpuscular Hgb 28.5 pg (27.0-32.0); Mean Corpuscular Volume 91.4 fL (81-99); Mean Platelet Vol. 9.6 fl (6.2-12.0); Monocyte% 7.1 % (0-10); NRBC Flagged by Analyzer 0 % (0-5); Neutrophil # 6.16 X10^3/uL (2.7-7.7); Platelet Count 521 K/mm3 (150-450); RBC Distribution Width CV 13.2 % (11.6-14.6); RBC Distribution Width SD 44.2 fl (35.1-43.9); Red Blood Count 3.83 M/mm3 (4.2-5.4); White Blood Count 8.4 K/mm3 (4.4-11.0)
[2025-02-09 06:26] VITALS: PULSE 70; RESP 16; O2SAT 94
[2025-02-09 06:44] LABS: Anion Gap 11 (5-15); BUN 15 mg/dL (4-19); BUN/Creat Ratio 23.8 RATIO (10-20); Calcium 9.4 mg/dL (7.6-11.0); Carbon Dioxide 25.4 mmol/L (22.0-29.0); Chloride 103 mmol/L (96-108); Creatinine, Serum 0.61 mg/dL (0.70-1.20); EST Glomerular Filtration Rate 96 (>60); Estimated Creatinine Clearance 56.63 ml/min (50-250); Glucose 91 mg/dL (70-99); Potassium 4.2 mmol/L (3.3-5.1); Sodium Level 140 mmol/L (133-145)
[2025-02-09 08:00] VITALS: O2SAT 95
[2025-02-09 08:14] VITALS: O2SAT 95
[2025-02-09] MEDS: Meloxicam 7.5 MG Tablet PO ×2 (08:28→21:23)
[2025-02-09] MEDS: Senna/Docusate Sodium 1 Tablet 2 TABLET PO ×2 (08:28→21:24)
[2025-02-09] MEDS: Gabapentin 100 MG Capsule 200 MG PO ×4 (08:28→21:22)
[2025-02-09] MEDS: APIXABAN 5 MG TABLET PO ×2 (08:29→21:23)
--- NOTE | 2025-02-09 08:38 | NURSING ---
Patient at sink completing ADLS independently. Reported heart rate was increasing while completing activity. Heart rate noted at 127. Patient assisted into recliner and encouraged to rest for awhile. Heart rate currently noted between 107-110 at rest. Call light in reach.
--- NOTE | 2025-02-09 10:21 | CASEMGMT ---
Social Work SW followed up with pt on DC plans. Pt explained she had a rough night and only got 3 hours of sleep, so she would prefer to stay another night, then DC home 02/10. SW agreed and pt will pay OOP for 02/09 at $660/day. SW updated therapy to see pt this date, with anticipate DC 02/10. SW phoned [facility] to update on DC date. Requested to add SW to the order as pt has been anxious and benefited from speaking with this worker. [facility] agreed and can see pt on 02/11, pending PCP orders. Updated [employer] to deliver portable O2 tank to pt's room this date. - SW received confirmed from [employer] that tank was delivered to room, and [facility] Intake spoke with pt's and confirmed SOC 02/10, as long as pt is discharged. Omaira Hernandez MSW SUPERVISING EDITOR TRAILER
--- NOTE | 2025-02-09 11:33 | NURSING ---
Overnight pulse ox results received and on clipboard for Dr. Mcdowell to review.
[2025-02-09 11:38] VITALS: O2SAT 94
[2025-02-09 14:00] VITALS: BP 93/51; PULSE 90; RESP 16; TEMP 36.6; O2SAT 94
[2025-02-09] MEDS: 0.9% Saline Lock 10 ML Syringe IV (21:25)
[2025-02-09] MEDS: traMADol 50 MG Tablet PO (22:20)
[2025-02-09] MEDS: Baclofen 10 MG Tablet PO (22:21)
[2025-02-10 06:03] VITALS: PULSE 80; RESP 16; O2SAT 95
[2025-02-10 08:12] VITALS: BP 109/49; PULSE 90; RESP 16; TEMP 36.6; O2SAT 96
[2025-02-10] MEDS: Gabapentin 100 MG Capsule 200 MG PO (08:14)
[2025-02-10] MEDS: APIXABAN 5 MG TABLET PO (08:14)
[2025-02-10] MEDS: Meloxicam 7.5 MG Tablet PO (08:14)
[2025-02-10 08:42] VITALS: O2SAT 96
== END 2025-02-10 12:58 | disposition home health service (06) | DRG 175 ==
PROVIDERS: Admitting Provider Family Medicine Geriatric Medicine; PCP Nurse Practitioner Family; Visit Provider Family Medicine Geriatric Medicine
DX: I26.92 Saddle embolus of pulmonary artery without acute cor pulmonale (principal); J96.01 Acute respiratory failure with hypoxia; I82.401 Acute embolism and thrombosis of unspecified deep veins of right lower extremity; J84.10 Pulmonary fibrosis, unspecified; M17.12 Unilateral primary osteoarthritis, left knee; Z79.01 Long term (current) use of anticoagulants; T84.093D Other 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, subsequent encounter; Y79.2 Prosthetic and other implants, materials and accessory orthopedic devices associated with adverse incidents; Z79.899 Other long term (current) drug therapy
CPT/HCPCS: 36415; 80048; 85014; 85018; 85025; 94762; 97110; 97116; 97162; 97166; 97530; 97535; 97802; A4216

== ENCOUNTER → 2025-02-07 | Outpatient (CLI) | payer MEDICARE, SELFPAY ==
--- NOTE | 2025-02-07 08:40 | VDLE_ITS ---
Reason For Study Reason For Study: Left leg swelling RIGHT LEFT CFV is compressible, spontaneous, phasic, competent GSV is normal. and demonstrates normal augmentation. CFV is compressible, spontaneous, phasic, competent, Procedure and demonstrates normal augmentation. This is a venous duplex using B-mode, color flow and FV is compressible, spontaneous, phasic, competent spectral Doppler. and demonstrates normal augmentation. Exam performed portable in patient room. POP V is compressible, spontaneous, phasic, competent A preliminary report was called and/or faxed to TCU and demonstrates normal augmentation. RN. T/P Trunk is compressible. PTV is compressible. LT PerV is compressible. VL/Venous Duplex US, Unilateral Interpretation Summary Deep veins of the left lower extremity are patent and compressible segmentally. There is no evidence of left lower extremity deep vein thrombosis. The left great saphenous vein appears patent an d compressible segmentally. Ordering Physician: Scott Mcdowell Chi Referring Physician: Lori Jorgensen Performed By: Marlyn Nieto RVT
== END | disposition home or self-care (01) ==
LOC: CVS 08:39
PROVIDERS: PCP Nurse Practitioner Family; Referring Provider Family Medicine Geriatric Medicine; Visit Provider Family Medicine Geriatric Medicine
DX: M79.89 Other specified soft tissue disorders (principal)
CPT/HCPCS: 93971

== ENCOUNTER → 2025-02-08 | Outpatient (CLI) | payer MEDICARE, SELFPAY ==
--- NOTE | 2025-02-08 09:44 | CT_ITS ---
EXAM: CT Angiography Chest Without and With Intravenous Contrast CLINICAL INDICATION: PE TECHNIQUE: Axial computed tomographic angiography images of the chest without and with intravenous contrast. This CT exam was performed using one or more of the following dose reduction techniques: automated exposure control, adjustment of the mA and/or kV according to patient size, and/or use of iterative reconstruction technique. MIP reconstructed images were created and reviewed. COMPARISON: No relevant prior studies available. FINDINGS: LIMITATIONS: Suboptimal opacification of the pulmonary arteries. PULMONARY ARTERIES: No pulmonary embolism is identified. Some of the distal pulmonary arteries cannot be evaluated due to suboptimal opacification. AORTA: No acute findings. No thoracic aortic aneurysm. LUNGS AND PLEURAL SPACES: Lung emphysema/COPD. No mass. No consolidation. No significant effusion. No pneumothorax. HEART: Unremarkable. No cardiomegaly. No significant pericardial effusion. No evidence of RV dysfunction. MEDIASTINUM: Scattered mediastinal lymph nodes some of which are upper limits of normal in size and are most likely reactive lymph nodes. BONES/JOINTS: No acute fracture. No dislocation. SOFT TISSUES: Unremarkable. LYMPH NODES: See above. CT/CTA Chest W/WO Contrast IMPRESSION: 1. No pulmonary embolism is identified. Some of the distal pulmonary arteries cannot be evaluated due to suboptimal opacification. 2. Scattered mediastinal lymph nodes some of which are upper limits of normal in size and are most likely reactive lymph nodes. 3. Lung emphysema/COPD. 4. Continue low-dose CT scan of the chest in 12 months is recommended. Reading [facility]
== END | disposition home or self-care (01) ==
PROVIDERS: PCP Nurse Practitioner Family; Referring Provider Family Medicine Geriatric Medicine; Visit Provider Family Medicine Geriatric Medicine
DX: I26.99 Other pulmonary embolism without acute cor pulmonale (principal)
CPT/HCPCS: 71275; Q9967

== ENCOUNTER → 2025-02-12 | Outpatient (CLI) | payer MEDICARE, SELFPAY ==
[2025-02-12 16:39] LABS: Absolute Neutrophil Count 6.7 X10^3/uL (2.0-7.7); Basophil# 0.09 X10^3/uL; Eosinophil# 0.32 X10^3/uL; Eosinophils% 3.5 % (0-5); Hematocrit 38.3 % (37-47); Hemoglobin 12.2 g/dL (12.0-15.0); Lymphocyte % 15.3 % (19-41); Mean Corp Hgb Conc 31.9 g/dL (32-36); Mean Corpuscular Hgb 28.5 pg (27.0-32.0); Mean Corpuscular Volume 89.5 fL (81-99); Mean Platelet Vol. 9.8 fl (6.2-12.0); Monocyte# 0.68 X10^3/uL; Monocyte% 7.4 % (0-10); NRBC Flagged by Analyzer 0 % (0-5); Neutrophil # 6.65 X10^3/uL (2.7-7.7); Neutrophil % 72.6 % (47-70); Platelet Count 472 K/mm3 (150-450); RBC Distribution Width CV 13.3 % (11.6-14.6); RBC Distribution Width SD 43.5 fl (35.1-43.9); Red Blood Count 4.28 M/mm3 (4.2-5.4); White Blood Count 9.2 K/mm3 (4.4-11.0)
[2025-02-12 18:54] LABS: Hepatitis C Antibody Nonreactive (Nonreactive)
[2025-02-12 19:03] LABS: ALB/GLOB Ratio 1.1 RATIO (0.9-2.4); AST(SGOT) 19 U/L (<=31); Alanine Aminotransfer ALT/SGPT 15 U/L (<=34); Alkaline Phosphatase 125 U/L (35-104); Anion Gap 11 (5-15); BUN 12 mg/dL (4-19); BUN/Creat Ratio 20.5 RATIO (10-20); Carbon Dioxide 25.3 mmol/L (21.0-32.0); Chloride 102 mmol/L (98-108); Creatinine, Serum 0.58 mg/dL (0.70-1.20); EST Glomerular Filtration Rate 97 (>60); Globulin 3.7 g/dL (2.2-4.2); Glucose 100 mg/dL (70-99); Potassium 4.3 mmol/L (3.3-5.1); Protein, Total 7.8 g/dL (5.9-8.4); Sodium Level 138 mmol/L (133-145); Total Bilirubin 0.22 mg/dL (0.00-1.30)
[2025-02-12 19:08] LABS: Vitamin D,25 Hydroxy 49.3 ng/mL (30-100)
== END | disposition home or self-care (01) ==
LOC: POLAB3 16:03
PROVIDERS: PCP Family Medicine Geriatric Medicine; Visit Provider Family Medicine Geriatric Medicine
DX: E78.5 Hyperlipidemia, unspecified (principal); E55.9 Vitamin D deficiency, unspecified; Z13.89 Encounter for screening for other disorder
CPT/HCPCS: 36415; 80053; 82306; 84443; 85025; 86803

== ENCOUNTER → 2025-02-27 | Outpatient (CLI) | payer MEDICARE, SELFPAY ==
--- NOTE | 2025-02-27 13:14 | VDLE_ITS ---
Reason For Study Reason For Study: Swelling RIGHT LEFT CFV is compressible, spontaneous, phasic, competent GSV is normal. and demonstrates normal augmentation. CFV is compressible, spontaneous, phasic, competent, Procedure and demonstrates normal augmentation. This is a venous duplex using B-mode, color flow and FV is compressible, spontaneous, phasic, competent spectral Doppler. and demonstrates normal augmentation. Exam performed in department. POP V is compressible, spontaneous, phasic, competent A preliminary report was called and/or faxed to Scott and demonstrates normal augmentation. Cm Mcdowell MD. T/P Trunk is compressible. PTV is compressible. LT PerV is compressible. VL/Venous Duplex US, Unilateral Interpretation Summary Deep veins of the left lower extremity are patent and compressible segmentally. There is no evidence of left lower extremity deep vein thrombosis. The left great saphenous vein appears patent an d compressible segmentally. Ordering Physician: Scott Mcdowell Chi Referring Physician: Scott Mcdowell Chi Performed By: Kaylan Francisco RVT
== END | disposition home or self-care (01) ==
PROVIDERS: PCP Family Medicine Geriatric Medicine; Referring Provider Nurse Practitioner Acute Care; Visit Provider Nurse Practitioner Acute Care
DX: R22.42 Localized swelling, mass and lump, left lower limb (principal); J84.10 Pulmonary fibrosis, unspecified
CPT/HCPCS: 93971; 94060; 94729

== ENCOUNTER → 2025-04-02 | Outpatient (CLI) | payer MEDICARE, SELFPAY ==
--- NOTE | 2025-04-02 11:58 | RAD_ITS ---
EXAM: DX wrist minimum three views CLINICAL HISTORY: Pain in other specified joint TECHNIQUE: Three views left wrist FINDINGS: No acute fracture or dislocation. The joint spaces appear within limits. No erosive changes identified. RAD/Wrist min 3 Views IMPRESSION: Study appears within limits. Reading Location: [id number]
--- NOTE | 2025-04-02 11:58 | RAD_ITS ---
PROCEDURE: HAND MIN 3 VIEWS 04/02/2025 REASON FOR EXAM: PAIN IN OTHER SPECIFIED JOINT TECHNIQUE: 3 view(s) of the left hand FINDINGS: No fracture or dislocation. The joint spaces appear within limits. No erosive change identified. RAD/Hand Min 3 Views IMPRESSION: Study appears within limits. Reading Location: [id number]
--- NOTE | 2025-04-02 11:58 | RAD_ITS ---
EXAM: DX wrist minimum three views CLINICAL HISTORY: Pain and other specified joint TECHNIQUE: Three views right wrist FINDINGS: No fracture or dislocation. The joint spaces appear within limits. No erosive change identified. RAD/Wrist min 3 Views IMPRESSION: Study appears within limits. Reading Location: [id number]
--- NOTE | 2025-04-02 11:59 | RAD_ITS ---
PROCEDURE: HAND MIN 3 VIEWS 04/02/2025 REASON FOR EXAM: PAIN IN OTHER SPECIFIED JOINT TECHNIQUE: 3 view(s) of the right hand FINDINGS: No fracture or dislocation. The joint spaces appear within limits. No erosive change identified. RAD/Hand Min 3 Views IMPRESSION: Study appears within limits. Reading Location: [id number]
[2025-04-02 12:28] LABS: Bacteria 0 SEEN /hpf (None Seen); Mucous, Urine 0 SEEN /hpf (<or=2+)
[2025-04-02 12:35] LABS: Absolute Lymphocyte Count 1.21 X10^3/uL (0.83-4.51); Basophil# 0.08 X10^3/uL; Eosinophil# 0.23 X10^3/uL; Eosinophils% 2.8 % (0-5); Lymphocyte # 1.21 X10^3/ul (0.83-4.51); Lymphocyte % 14.8 % (19-41); Mean Corp Hgb Conc 32.5 g/dL (32-36); Mean Corpuscular Hgb 28.5 pg (27.0-32.0); Mean Corpuscular Volume 87.7 fL (81-99); Mean Platelet Vol. 10.4 fl (6.2-12.0); Monocyte# 0.64 X10^3/uL; Monocyte% 7.8 % (0-10); NRBC Flagged by Analyzer 0 % (0-5); Neutrophil # 5.98 X10^3/uL (2.7-7.7); Neutrophil % 73.2 % (47-70); Platelet Count 259 K/mm3 (150-450); RBC Distribution Width CV 14.2 % (11.6-14.6); RBC Distribution Width SD 45.3 fl (35.1-43.9); Red Blood Count 4.56 M/mm3 (4.2-5.4); White Blood Count 8.2 K/mm3 (4.4-11.0)
[2025-04-02 12:50] LABS: Erythrocyte Sedimentation Rate 23 mm/hr (0-30)
[2025-04-02 12:54] LABS: Color, Urine Yellow (Yellow); Glucose, Dipstick Normal (Normal); Ketone-Dipstick Negative (Negative); Leukocyte Esterase-Dipstick 25 /ul (Negative); Nitrite-Dipstick Negative (Negative); Occult Blood-Urine 25 /ul (Negative); Protein-Dipstick 15 mg/dl (Negative); Specific Gravity, Urine 1.015 (1.002-1.030); Urine Bilirubin Dipstick Negative (Negative); Urine Clarity Clear (Clear); Urine Urobilinogen Normal (Normal)
[2025-04-02 13:00] LABS: Red Blood Cells-Urine 0-5 SEEN /hpf (0-5); Squamous Epithelial Cells - UA 0-5 SEEN /hpf (5-10); White Blood Cells 0-5 SEEN /hpf (0-5)
[2025-04-02 13:15] LABS: AST(SGOT) 19 U/L (<=31); Alanine Aminotransfer ALT/SGPT 13 U/L (<=34); BUN 16 mg/dL (4-19); Creatinine, Serum 0.81 mg/dL (0.70-1.20); EST Glomerular Filtration Rate 77 (>60)
[2025-04-02 14:00] LABS: CRP < 3.00 mg/L (0.0-3.0); Rheumatoid Factor < 10.0 IU/mL (<15)
[2025-04-03 11:08] LABS: ANTINUCLEAR ANTIBODIES DIRECT Negative (Negative); Anti-Scleroderma-70 AB <0.2 AI (0.0-0.9); Anti-dsDNA Ab <1 IU/mL (0-9); SJOGREN'S Anti-SS-A test < 0.2 AI (0.0-0.9); SJOGREN'S Anti-SS-B test < 0.2 AI (0.0-0.9)
[2025-04-03 17:08] LABS: Anti-Cardiolipin Ab, IgA, Qn > 150 APL U/mL (0-11); Anti-Cardiolipin Ab, IgG, Qn 13 GPL U/mL (0-14); Anti-Cardiolipin Ab, IgM, Qn 29 MPL U/mL (0-12); Beta-2-Glycoprotein I IgA <9 (0-25); Beta-2-Glycoprotein I IgG <9 (0-20); Beta-2-Glycoprotein I IgM <9 (0-32); CCP IgG Antibodies 9 units (0-19); Complement C3 141 mg/dL (82-167)
== END | disposition home or self-care (01) ==
LOC: LAB 11:16
PROVIDERS: PCP Family Medicine Geriatric Medicine; Referring Provider Internal Medicine Rheumatology; Visit Provider Internal Medicine Rheumatology
DX: M25.59 Pain in other specified joint (principal)
CPT/HCPCS: 36415; 73110; 73130; 81001; 82565; 84450; 84460; 84520; 85025; 85652; 86038; 86140; 86146; 86147; 86160; 86200; 86225; 86235; 86431

== ENCOUNTER → 2025-04-27 | Outpatient (CLI) | payer MEDICARE, SELFPAY | END | disposition home or self-care (01) | LOC: LAB 11:03 | PROVIDERS: PCP Family Medicine Geriatric Medicine; Referring Provider Specialist; Visit Provider Specialist | DX: Z01.818 Encounter for other preprocedural examination (principal) | CPT/HCPCS: 87081 ==

== ENCOUNTER 2025-05-10 16:26 | Inpatient (IN) | payer MEDICARE, SELFPAY ==
--- NOTE | 2025-04-16 13:18 | PAT.ANE_ITS ---
Pre-Assessment Diagnosis/Proposed Procedure Planned Operative Procedure(s): LEFT TOTAL KNEE FEMORAL COMPONENT REVISION Anesthesia History Anesthesia History - supervisor polishing: Anesthesia History - supervisor polishing Hx Hospitalization Yes: 12/2024,01/2025 SADDLE 04/16/25 10:16 BLOOD CLOT OF LUNGS Any Problems With Anesthesia No 04/16/25 10:16 Cholinesterase deficiency No 04/16/25 10:16 You/Your Family Experience No 04/16/25 10:16 fever (hyperthermia) with Relationship Recent Exposure to Contagious Disease Does patient have nerve No 04/16/25 10:16 stimulator Patient instructed to have device shut off --Does patient have Pacemaker or ICD? When Was Last Pacemaker Check QUESTION #4 FULL TEXT: You/Your Family Experience fever (hyperthermia) with Anesthesia Last Oral Intake Last Oral intake: Last Oral Intake NPO since Meds taken in AM with sips of water? Meds patient instructed to take am of surgery PONV PONV - supervisor polishing: PONV - supervisor polishing Female Yes 04/16/25 10:16 HX of Motion Sickness No 04/16/25 10:16 HX of N/V After Surgery No 04/16/25 10:16 Non-Smoker Yes 04/16/25 10:16 Duration of Surgery greater Yes 04/16/25 10:16 than 60 minutes Number of Risk Factors 3 04/16/25 10:16 PONV Score Moderate Risk 04/16/25 10:16 Height & Weight Height & Weight: Anesthesia: Height & Weight Height 5 ft 04/02/25 08:06 Respiratory Assessment Respiratory Assessment - supervisor polishing: Respiratory Tract Infection Hx - supervisor polishing Hx Respiratory Tract Infection No 04/16/25 10:16 STOP Sleep Apnea STOP Sleep Apnea - supervisor polishing: STOP Sleep Apnea - supervisor polishing Hx Hypertension No 04/16/25 10:16 Hx Sleep Apnea No 04/16/25 10:16 CPAP BIPAP Do you snore loudly (louder No 04/16/25 10:16 than talking or can be heard Do you often feel tired/ No 04/16/25 10:16 fatigued/ sleepy during daytime? Has anyone observed you stop No 04/16/25 10:16 breathing during sleep? STOP Results Negative 04/16/25 10:16 QUESTION #5 FULL TEXT : Do you snore loudly (louder than talking or can be heard through closed doors)? Tobacco Use History Tobacco Use History - supervisor polishing: Tobacco Use History - supervisor polishing Tobacco Use Smoking Status Never smoker 04/16/25 10:16 Hx Tobacco Use No 04/16/25 10:16 Years Smoking Packs Smoked per Day Smoking Cessation Date was within the last 15 years Hx Smoking Cessation Date Hx Smoking Cessation Counseling Hematologic Medial History Hematologic Hx - supervisor polishing: Hematologic Medical Hx - scale reclamation tender Hx of Blood Transfusion No 04/16/25 10:16 Hx of Transfusion in last 3 No 04/16/25 10:16 Months Date of Last Transfusion (if within last 3 months) Ever experience any problems No 04/16/25 10:16 with transfusion(s)? Specify any problems Hx of Preganancy in last 3 No 04/16/25 10:16 Months Nurse Filling Out Transfusion DSCHRIBER 04/16/25 10:16 & Questions: Date: 04/16/25 04/16/25 10:16 Time: 10:21 04/16/25 10:16 Patient unable to answer at this time (ie. confused, unrespo /Reproduction History /Reproductive History - supervisor polishing: /Reproductive Hx- supervisor polishing Hx Now No 04/16/25 10:16 Gestational Age (in weeks): EDC: Hx Hx Para Hx Section SAB No 04/16/25 10:16 PFSH Medical History (Updated 04/16/25 @ 10:27 by Ana Laura Franklin) Wears contact lenses Post-menopausal Walker as ambulation aid Blackout Non-smoker On home oxygen therapy Shortness of breath on exertion History of pain when walking History of edema History of echocardiogram Failed total left knee replacement Osteoarthritis of left knee Pulmonary fibrosis Right leg DVT Saddle pulmonary embolus Acute respiratory failure with hypoxia Debility Home Medications ?Medication ?Instructions ?Recorded ?Last Taken ?Type apixaban 5 mg tablet (Eliquis) 5 mg PO BID BLOOD THINN ER 30 days 02/06/25 Unknown Rx #60 tabs gabapentin 100 mg capsule 200 mg (2 x 100 mg) PO TIDCM NERVE 02/06/25 Unknown Rx PAIN 30 days #180 caps albuterol sulfate 90 mcg/actuation 2 inh inhalation Q4 H PRN shortness 04/02/25 Unknown Rx aerosol inhaler (Ventolin HFA) of breath or wheezing # 18 grams ascorbic acid (vitamin C) 100 mg 600 mg PO DAILY SUPPL EMENT 04/16/25 Unknown History tablet (Vitamin C) baclofen 10 mg tablet 10 mg PO QHS Muscle Spasm Unknown History tramadol 50 mg tablet 50 mg PO QHS PRN Pain Score 4-5 Or 04/16/25 Unknown History Pre Pt/Ot vitamin D3 125 mcg (5,000 1 cap PO DAILY SUPPLEMENT Unknown History unit)-vitamin K2 100 mcg capsule Allergy/AdvReac Type Severity Reaction Status Date / Time No Known Allergies Allergy Verified 04/16/25 10:05 Surgical History (Updated 04/16/25 @ 10:27 by Ana Laura Franklin) Hx of tubal ligation History of appendectomy Total knee replacement status Social History (Reviewed 04/02/25 @ 10:43 by Cindy Guerrier CLIMATE CHANGE RISK ASSESSOR, CLIMATE CHANGE RISK ASSESSOR-C) household members: spouse Smoking Status: Never smoker alcohol intake: never substance use type: does not use Audit: Pertinent Findings Pertinent Findings EKG Perinent findings: 01/23/2025. Sinus tachycardia 108 bpm. Otherwise normal EKG. Echo (EF%) pertinent findings: 01/23/2025. EF 65%. Subtle thrombus noted in the main pulmonary artery. Pulmonary function results/spirometer pertinent findings: Chest x-ray 01/23/2025. Patchy bibasilar pulmonary infiltrates worse on the left side. Follow-up showed a pulmonary embolism. Recommendation Anesthesia Recommendation Anesthesia recommendation: OPTIMIZED for anesthesia
[2025-04-16 17:44] LABS: Absolute Lymphocyte Count 1.43 X10^3/uL (0.83-4.51); Basophil# 0.07 X10^3/uL; Basophil% 0.8 % (0-1); Eosinophil# 0.26 X10^3/uL; Eosinophils% 3.1 % (0-5); Hematocrit 41.3 % (37-47); Hemoglobin 13.2 g/dL (12.0-15.0); Lymphocyte # 1.43 X10^3/ul (0.83-4.51); Lymphocyte % 16.9 % (19-41); Mean Corpuscular Hgb 28.5 pg (27.0-32.0); Mean Corpuscular Volume 89.2 fL (81-99); Mean Platelet Vol. 10.6 fl (6.2-12.0); Monocyte# 0.71 X10^3/uL; Monocyte% 8.4 % (0-10); NRBC Flagged by Analyzer 0 % (0-5); Neutrophil # 5.96 X10^3/uL (2.7-7.7); Neutrophil % 70.6 % (47-70); Platelet Count 277 K/mm3 (150-450); RBC Distribution Width CV 14.2 % (11.6-14.6); RBC Distribution Width SD 46.1 fl (35.1-43.9); Red Blood Count 4.63 M/mm3 (4.2-5.4); White Blood Count 8.5 K/mm3 (4.4-11.0)
[2025-04-16 18:04] LABS: International Normalized Ratio 0.9; Prothrombin Time (Protime)PT. 12.2 SECONDS (11.7-14.9)
[2025-04-16 18:05] LABS: Partial Thromboplast Time 27.1 Seconds (24.1-36.2)
[2025-04-16 18:10] LABS: ALB/GLOB Ratio 1.2 RATIO (0.9-2.4); AST(SGOT) 21 U/L (<=31); Alanine Aminotransfer ALT/SGPT 13 U/L (<=34); Albumin, Serum 4.6 g/dL (3.4-4.8); Alkaline Phosphatase 109 U/L (35-104); Anion Gap 11 (5-15); BUN 18 mg/dL (4-19); BUN/Creat Ratio 26.8 RATIO (10-20); Calcium,Total 10.3 mg/dL (7.6-11.0); Carbon Dioxide 27.1 mmol/L (21.0-32.0); Chloride 103 mmol/L (98-108); Creatinine, Serum 0.65 mg/dL (0.70-1.20); EST Glomerular Filtration Rate 93 (>60); Globulin 3.7 g/dL (2.2-4.2); Glucose 108 mg/dL (70-99); Potassium 4.7 mmol/L (3.3-5.1); Protein, Total 8.3 g/dL (5.9-8.4); Sodium Level 141 mmol/L (133-145); Total Bilirubin 0.21 mg/dL (0.00-1.30)
[2025-04-18 10:14] LABS: Magnesium 2.3 mg/dL (1.5-2.2)
[2025-05-10] VITALS (11 sets, daily range): BP systolic 106–126; BP diastolic 50–64; PULSE 79–96; RESP 16–18; TEMP 36.1–36.8; O2SAT 95–100; BMI 32.9
--- NOTE | 2025-05-10 11:34 | PRE.ANES_ITS ---
ASA Classification* ASA Classification ASA Classification: 3 Assessment & Plan Anesthesia* Anesthesia Assessment Anesthesia Assessment: Discussed sedation and/or anesthesia options, risks, benefits, and alternatives with patient/parents/legal guardian/POA. Questions invited. The patient/parents/legal guardian/POA seems to understand and agrees to proceed with anesthesia plan. Reviewed the physical assessment, medical history, allergy history and patient home medications list prior to surgery/procedure/anesthetic and documented any changes. Performed airway and anesthesia risk assessments. Anesthesia Type Anesthesia Type: Spinal (last lovenox over 30 hours ago) and Block Anesthesia Focused Assessment* Airway Assessment Mouth opens: >3 cm Mallampati Score: II Labs Anesthesia Preop lab: CBC WBC 8.5 K/mm3 (4.4-11.0) 04/16/25 17:04/16/25 RBC 4.63 M/mm3 (4.2-5.4) 04/16/25 17:04/16/25 Hgb 13.2 g/dL (12.0-15.0) 04/16/25 17:04/16/25 Hct 41.3 % (37-47) 04/16/25 17:04/16/25 Plt Count 277 K/mm3 (150-450) 04/16/25 17:04/16/25 CHEMISTRY Potassium 4.7 mmol/L (3.3-5.1) 04/16/25 17:04/16/25 Sodium 141 mmol/L (133-145) 04/16/25 17:04/16/25 Magnesium 2.3 mg/dL (1.5-2.2) H 04/17/25 17:04/17/25 Phosphorus 2.2 mg/dL (2.7-4.5) L 01/25/25 07:36 01/25/25 BUN 18 mg/dL (4-19) 04/16/25 17:04/16/25 Creatinine 0.65 mg/dL (0.70-1.20) L 04/16/25 17:09 Glucose 108 mg/dL (70-99) H 04/16/25 17:04/16/25 TSH 1.020 uIU/mL (0.300-4.200) 02/12/25 16:03 01/27 06/22 COAG PT 12.2 SECONDS (11.7-14.9) 04/16/25 17:09 Pre-Assessment Diagnosis/Proposed Procedure Planned Operative Procedure(s): LEFT TOTAL KNEE FEMORAL COMPONENT REVISION Anesthesia History Anesthesia History - senior design engineer: Anesthesia History - senior design engineer Hx Hospitalization Yes: 12/2024,01/2025 SADDLE 04/16/25 10:16 BLOOD CLOT OF LUNGS Any Problems With Anesthesia No 04/16/25 10:16 Cholinesterase deficiency No 04/16/25 10:16 You/Your Family Experience No 04/16/25 10:16 fever (hyperthermia) with Relationship Recent Exposure to Contagious Disease Does patient have nerve No 04/16/25 10:16 stimulator Patient instructed to have device shut off --Does patient have Pacemaker or ICD? When Was Last Pacemaker Check QUESTION #4 FULL TEXT: You/Your Family Experience fever (hyperthermia) with Anesthesia Last Oral Intake Last Oral intake: Last Oral Intake NPO since Meds taken in AM with sips of water? Meds patient instructed to take am of surgery PONV PONV - senior design engineer: PONV - senior design engineer Female Yes 04/16/25 10:16 HX of Motion Sickness No 04/16/25 10:16 HX of N/V After Surgery No 04/16/25 10:16 Non-Smoker Yes 04/16/25 10:16 Duration of Surgery greater Yes 04/16/25 10:16 than 60 minutes Number of Risk Factors 3 04/16/25 10:16 PONV Score Moderate Risk 04/16/25 10:16 Height & Weight Height & Weight: Anesthesia: Height & Weight Height 5 ft 05/09/25 09:18 Weight: 73.482 kg 05/09/25 09:18 Respiratory Assessment Respiratory Assessment - senior design engineer: Respiratory Tract Infection Hx - senior design engineer Hx Respiratory Tract Infection No 04/16/25 10:16 STOP Sleep Apnea STOP Sleep Apnea - senior design engineer: STOP Sleep Apnea - senior design engineer Hx Hypertension No 04/16/25 10:16 Hx Sleep Apnea No 04/16/25 10:16 CPAP BIPAP Do you snore loudly (louder No 04/16/25 10:16 than talking or can be heard Do you often feel tired/ No 04/16/25 10:16 fatigued/ sleepy during daytime? Has anyone observed you stop No 04/16/25 10:16 breathing during sleep? STOP Results Negative 04/16/25 10:16 QUESTION #5 FULL TEXT : Do you snore loudly (louder than talking or can be heard through closed doors)? Tobacco Use History Tobacco Use History - senior design engineer: Tobacco Use History - senior design engineer Tobacco Use Smoking Status Never smoker 04/16/25 10:16 Hx Tobacco Use No 04/16/25 10:16 Years Smoking Packs Smoked per Day Smoking Cessation Date was within the last 15 years Hx Smoking Cessation Date Hx Smoking Cessation Counseling Hematologic Medial History Hematologic Hx - senior design engineer: Hematologic Medical Hx - job analyst Hx of Blood Transfusion No 04/16/25 10:16 Hx of Transfusion in last 3 No 04/16/25 10:16 Months Date of Last Transfusion (if within last 3 months) Ever experience any problems No 04/16/25 10:16 with transfusion(s)? Specify any problems Hx of Preganancy in last 3 No 04/16/25 10:16 Months Nurse Filling Out Transfusion DSCHRIBER 04/16/25 10:16 & Questions: Date: 04/16/25 04/16/25 10:16 Time: 10:21 04/16/25 10:16 Patient unable to answer at this time (ie. confused, unrespo /Reproduction History /Reproductive History - senior design engineer: /Reproductive Hx- senior design engineer Hx Now No 04/16/25 10:16 Gestational Age (in weeks): EDC: Hx Hx Para Hx Section SAB No 04/16/25 10:16 Active Medications Active Medications: Current Medications Generic Name Dose Route Start Last Admin Trade Name Freq PRN Reason Stop Dose Admin Acetaminophen 1,000 mg 05/10/25 12:30 Acetaminophen 500 Mg Tablet PO 05/10/25 12:31 PREOP ONE Sodium Chloride 77.4 ml/ 0 ml 05/10/25 12:30 Ropivacaine 200 mg/ OPERA.SITE 05/10/25 12:31 Epinephrine HCl 0.6 mg/ INTRAOP ONE Ketorolac Tromethamine 30 mg/ Morphine Sulfate 5 mg Dexamethasone Sodium Phosphate 10 mg 05/10/25 12:30 Dexamethasone 10 Mg/Ml Vial IV 05/10/25 12:31 INTRAOP ONE Gabapentin 600 mg 05/10/25 12:30 Gabapentin 600 Mg Tablet PO 05/10/25 12:31 PREOP ONE Lactated Ringer's 1,000 mls @ 999 mls/hr 05/10/25 12:30 IV 05/10/25 13:30 .Q1H1M GABBI Cefazolin Sodium 2 gm/ Sodium 110 mls @ 150 mls/hr 05/10/25 12:30 Chloride IV 05/10/25 13:13 INTRAOP ONE Tranexamic Acid 2,000 mg/ 120 mls @ 280 mls/hr 05/10/25 12:30 Sodium Chloride IV 05/10/25 12:55 INTRAOP ONE Lactated Ringer's 1,000 mls @ 999 mls/hr 05/10/25 12:30 IV 05/10/25 13:30 .Q1H1M GABBI Lactated Ringer's 1,000 mls @ 125 mls/hr 05/10/25 12:30 IV 05/10/25 20:29 .Q8H GABBI Magnesium Sulfate 1 gm/ 102 mls @ 408 mls/hr 05/10/25 12:30 Dextrose IV 05/10/25 12:44 INTRAOP ONE Insulin Human Lispro 1 - 6 unit 05/10/25 12:30 Insulin Lispro 100 Unit/Ml Insuln.Pen SC Q4H PRN PRN BG>/= 180, SEE PROTOCOL Protocol PFSH Medical History Wears contact lenses Post-menopausal Walker as ambulation aid Blackout Non-smoker On home oxygen therapy Shortness of breath on exertion History of pain when walking History of edema History of echocardiogram Failed total left knee replacement Osteoarthritis of left knee Pulmonary fibrosis Right leg DVT Saddle pulmonary embolus Acute respiratory failure with hypoxia Debility Home Medications ?Medication ?Instructions ?Recorded ?Last Taken ?Type apixaban 5 mg tablet (Eliquis) 5 mg PO BID BLOOD THINN ER 30 days 02/06/25 05/03/25 Rx #60 tabs gabapentin 100 mg capsule 200 mg (2 x 100 mg) PO TIDCM NERVE 02/06/25 05/09/25 Rx PAIN 30 days #180 caps albuterol sulfate 90 mcg/actuation 2 inh inhalation Q4 H PRN shortness 04/02/25 Unknown Rx aerosol inhaler (Ventolin HFA) of breath or wheezing # 18 grams ascorbic acid (vitamin C) 100 mg 600 mg PO DAILY SUPPL EMENT 04/16/25 05/05/25 History tablet (Vitamin C) baclofen 10 mg tablet 10 mg PO QHS Muscle Spasm 05/09/25 History tramadol 50 mg tablet 50 mg PO QHS PRN Pain Score 4-5 Or 04/16/25 05/09/25 History Pre Pt/Ot vitamin D3 125 mcg (5,000 1 cap PO DAILY SUPPLEMENT 05/05/25 History unit)-vitamin K2 100 mcg capsule enoxaparin 80 mg/0.8 mL 80 mg subcut Q12H saddle dvt 05/10/25 05/09/25 09:00 History subcutaneous syringe Allergy/AdvReac Type Severity Reaction Status Date / Time No Known Allergies Allergy Verified 05/10/25 11:25 Surgical History Hx of tubal ligation History of appendectomy Total knee replacement status Social History household members: spouse Smoking Status: Never smoker alcohol intake: never substance use type: does not use Review of Systems (Anesthesia) ROS Narrative System reviewed and no additional complaints, except as documented.
[2025-05-10] MEDS: Acetaminophen 500 MG Tablet 1000 MG PO ×2 (11:57→20:40)
[2025-05-10] MEDS: LR 1,000 ML - BOLUS PREOP 999 ML IV (11:57)
[2025-05-10] MEDS: Gabapentin 600 MG Tablet PO (11:57)
[2025-05-10] MEDS: Magnesium 1 GM over 15 mins IV (11:58)
[2025-05-10 12:13] LABS: Bedside Glucose 95 mg/dL (74-106)
[2025-05-10] MEDS: Cefazolin 2 GM in 0.9% Normal Saline (100mL Bag) 100 ML IV (13:50)
[2025-05-10] MEDS: dexAMETHasone 10 MG/ML Vial IV (13:55)
[2025-05-10] MEDS: TXA IV (16:15)
[2025-05-10] MEDS: [UNRECOGNIZED DRUG - OTHER] IV (16:15)
[2025-05-10] MEDS: JPS (Morphine 10mg/ml) OPERA.SITE (16:15)
--- NOTE | 2025-05-10 16:35 | PCM.OPRPT ---
Operative Report (Standard) Operative Information Date of Procedure: 05/10/25 Pre-Operative Diagnosis: Painful right total knee replacement, aseptic loosening right femoral component, arthrofibrosis Post-Operative Diagnosis: Painful right total knee replacement, aseptic loosening right femoral component, arthrofibrosis Surgery/Procedure Performed: Revision right total knee replacement, entire femoral component insect control aide: Yes Mortgage Processing Manager: Andrea Hawkins Tasks completed by casting assistant: Other (My physician dairy and food laboratory assistant was a vital part of this case, they was important because there was not another skilled set of hands available to their training and aptitude needed for safe and appropriate completion of this case. They were important in appropriate retraction during the case, and protectio) Additional dairy and food laboratory assistant?: No Type of Anesthesia: Spinal RN Documented Start/Stop Times: Operation Date: 05/10/25 12:30 Case Time Into Pre-Op 05/10/25 11:32 Anesthesia Start 05/10/25 13:50 Into Room 05/10/25 13:50 Procedure Start 05/10/25 14:35 Procedure End 05/10/25 17:04 Anesthesia End 05/10/25 17:07 Out of Room 05/10/25 17:07 Into Recovery 05/10/25 17:10 Out of Recovery 05/10/25 18:13 Procedure Start Time: 14:35 Procedure Stop Time: 17:04 Select all DRAINS/GRAFTS/IMPLANTS that apply: Prosthetic device Prosthetic device details: 1. Yayo triathlon total stabilized distal femoral component size 2 with 12 x 50 mm cemented stem 2. Yayo triathlon X.3 posterior stabilized 11 mm polyethylene Special Medications: 2 g Ancef, 2 g TXA lavage prior to closure, 10 mg Decadron, joint cocktail (5 mg Duramorph, 30 mL of 0.5% Ropivicaine, 1000 units of epinephrine, 30 mg of Toradol) Estimated Blood Loss: 125 mL Fluids Replaced: 1800 mL crystalloid Specimen collected: Yes Description of specimen(s) removed: 3 separate specimens were sent to microbiology Description of surgery: Brief history operative indications: 70-year-old female who had a total knee replacement on November 16, 2020 for presented to my office after having initial 4 weeks of good progress with physical therapy and good range of motion with progressive pain and stiffness. Patient lost progressive range of motion over the following 4 weeks and became increasingly more painful. Repeat radiographs were performed and patient had radiographic evidence of femoral component loosening at this time. Plan at that time was to proceed with revision left total knee replacement however patient developed a saddle embolus which delayed surgery. During this time patient had progressive loss of range of motion and eventually developed significant arthrofibrosis with range of motion from 10 to 30 degrees. Ultimately, once patient was adequately treated for her pulmonary embolus and given medical clearance to proceed we elected to proceed with the left revision total knee replacement. Risk and benefits as noted in the history and physical were discussed at length with the patient which include but are not limited to blood loss, DVTs, PEs, nervous damage confession, the risk of anesthesia loss of life, recurrent arthrofibrosis and implant loosening were discussed. We elected to proceed with a femoral component revision. Preoperative inflammatory workup was not consistent with infection. Procedure: On the date of procedure patient's left lower extremity was marked in the preoperative area. The patient was then taken back to the operating room where the patient was placed on the table in the supine position. All bony prominences were identified a well-padded. Anesthesia assumed control of the C-spine and airway and remained controlled throughout the remainder of the procedure. A tourniquet was placed on the left upper thigh and the leg was prepped in a sterile fashion. The surgeon then scrubbed at this time. Upon reentering the room LEFt lower extremity was draped in a standard orthopedic fashion. A timeout was then called and everyone agreed upon the side, the site, the procedure to be performed, patient's identity and antibiotics given. An Esmarch bandage was used to exsanguinate the extremity and the tourniquet was placed up to 250 mmHg due to the patient's limited range of motion a tourniquet was placed up with the knee in extension. With knee extension A midline skin incision was made using the previous incision and extending it proximally and distally to identify normal tissue planes. Medial and lateral flaps were developed appropriate releases. The standard medial parapatellar arthrotomy was identified and the arthrotomy was made with a quadriceps snip was performed proximally made and the patella was subluxed laterally. Upon entering the joint it was noted patient has significant arthrofibrosis with scar tissue fibrosis in the quadriceps down anteriorly. At this time an aggressive synovectomy was performed re-creating the medial gutter first, then the suprapatellar pouch than the lateral gutter. Once this was completed the knee was remained in extension and an osteotome was used to remove the tibial polyethylene. The remainder of the synovium was debrided. The standard deep MCL release was done and the patella scar pad was resected and lateral releases were performed. We also carefully debrided the posterior knee and release the posterior capsule. Tabor was placed up the anterior thigh releasing the quadriceps from the femoral contractures. Next our attention was directed to the femur. Based on the radiographic findings we wanted to test the bone implant interface and a bone tamp was placed over the proximal portion of the anterior flange and the implant was impacted distally. The femoral implant came dislodged from the femoral component. The backside was evaluated and showed no significant bony ingrowth except for 1 small spot weld at the anterior chamfer. This was consistent with not ingrowth of the implant. Our attention was then turned to the tibia where the tibia was examined. There was found to be appropriate volume between the implant and the bone. We elected to proceed with the planned procedure. The patella was everted and also examined showed to have residual cartilage in the knee the patella was again left in place. Our attention was then turned back to the femur or the femur intramedullary canal was reamed to 16 mm and the size 2T CG guide was put into place with the 16 mm x 100 mm stem. Once we establish rotation and joint line the implant was pinned in place. 9 mm T CG polyethylene was put into place therefore adequate stability and balancing we were happy with this. Based on these trials we proceeded with distal and posterior cuts. We knew we would need a no significant augments. Box was then cut through the PCG guide. The appropriate trials were then placed on the femur. A trial polyethylene was trialed to ensure proper balancing and stability of the knee. Patella tracking, was then verified and corrected appropriately as needed. Our attention was then directed to the patella. Patellar tracking was again checked and deemed appropriate. However, there was significant quadriceps contracture and tightness. Final components were verified and opened, 6 liters of normal saline were irrigated throughout the joint under low-pressure lavage. Then the cement was mixed in a vacuum. [place] Simplex cement with tobramycin was used. The wound was copiously irrigated with normal saline. When the cement was ready the components were cemented into place. The trial poly component was placed and the knee was placed in full extension. All excess cement was removed in the process. Once the cement had cured the tracking, alignment and balance were verified and a size 11 mm polyethylene component was placed. Once the final components were placed a dilute Betadine solution and chlorhexidine solution were used to lavage the wound the wound was copiously irrigated with normal saline solution and the remainder of the periarticular injection was given. The wound was closed in a layer barrera fashion using #2 FiberWire to close the proximal quadricep snip. Based on the contractile lengthening of the quadriceps we did based on the quadricep snip length and the quadriceps and a repair by about 1 cm which allowed for improved range of motion. The midportion of the arthrotomy was closed using #1 vicryl interrupted sutures for the arthrotomy, proximal and distal arthrotomy were closed and oversewn using #1 strata fix 2-0 interrupted Vicryl for the subcuticular layer and julián for final skin closure. A sterile compressive dressing was then placed. The patient was then awakened from anesthesia, transferred to the rwilcox and transferred to the PACU for recovery. Post op plan DVT ppx: Resume Eliquis tomorrow morning, thigh high compression stockings Follow up: in office in 2 weeks for wound check PT: to start POD #0 at hospital, outpatient PT should be arranged. My physician dairy and food laboratory assistant was a vital part of this case. He was important in appropriate retraction during the case, and protection of soft tissues during bony cuts. His intimate knowledge of the case and my steps aided in safe and expedient completion of the procedure as well as appropriate position of the leg during the case. He was also vital in assisting with closure under my direct supervision. Surgical Findings: Significant arthrofibrosis. Final range of motion of the knee can flex to between 110 and 120 degrees based on estimated measurements. Complications Complications: No Admit VTE Documentation VTE Present on Admission: No VTE Mechan Device Prophylaxis: SCD's and Thigh High ELLA Hose VTE Pharm Prophylaxis ordered?: Yes
[2025-05-10] MEDS: LR 1,000 ML - BOLUS POSTOP 999 ML IV (17:15)
--- NOTE | 2025-05-10 17:17 | PCM.POST.ANE ---
Anesthesia: Postop Eval I Current Vital Signs Temperature: 97 F Pulse Rate: 90 Blood Pressure: 106/51 Respiratory Rate: 16 Pulse Ox: 97 Oxygen Delivery Method: Room Air Assessment Airway patent: Yes Spontaneous unlabored respirations: Yes Mental status: Awake nausea: No Vomiting: No Anesthesia Complication: No Fluid Hydration Crystalloid volume administer (ml): 500 Total IV fluid infused: 500 Progress Note Anesthesia document: Postop Eval 1 completed: Yes
--- NOTE | 2025-05-10 17:25 | RAD_ITS ---
PROCEDURE: KNEE 1 OR 2 VIEWS 05/10/2025 REASON FOR EXAM: TKA TECHNIQUE: Two views of the left knee. COMPARISON: None. FINDINGS: Status post left knee total arthroplasty. Adjacent soft tissue swelling and air which can be expected postsurgically. No evidence of acute complication. RAD/Knee 1 or 2 Views IMPRESSION: Status post left knee arthroplasty. Reading Location: [place] [id number]
--- NOTE | 2025-05-10 17:52 | PCM.POSTANE2 ---
Anesthesia Postop Eval I Sum Postop Eval Completion status Anesthesia document: Postop Eval 1 completed: Yes Anesthesia Postop Eval I Summary Anesthesia Postop Eval I Summary: Anesthesia Postop Eval I: Assessment Summary Airway patent Yes 05/10/25 17:18 Spontaneous unlabored Yes 05/10/25 17:18 respirations Mental status Awake 05/10/25 17:18 nausea No 05/10/25 17:18 Vomiting No 05/10/25 17:18 Anesthesia Postop Eval I: Fluid Summary Crystalloid volume administer 500 05/10/25 17:18 (ml) Colloids volume administered ( ml) Blood Product volume administered (ml) Total IV fluid infused 500 05/10/25 17:18 Anesthesia Postop Eval I: Summary Notes Anesthesia Complication No 05/10/25 17:18 Anesthesia Complication Comment: Post-operative progress note Anesthesia: Postop Eval II Evaluation Mental status: Awake Pain Level: 2 nausea: No Vomiting: No
[2025-05-10] MEDS: LR 1,000 ML - 125 ML/HR (POST BOLUS) POST OP IV (18:06)
[2025-05-10] MEDS: Senna/Docusate Sodium 1 Tablet 2 TABLET PO (20:41)
[2025-05-10] MEDS: oxyCODONE 5 MG Tablet PO (20:41)
[2025-05-10] MEDS: Cefazolin 1 GM/50 ML BAG IV (21:14)
[2025-05-11] MEDS: Ketorolac 15 MG/ML Vial IV ×2 (00:54→09:11)
[2025-05-11] MEDS: oxyCODONE 5 MG Tablet PO ×3 (04:58→13:56)
[2025-05-11 05:00] VITALS: BP 114/53; PULSE 72; RESP 16; TEMP 36.5; O2SAT 100
[2025-05-11] MEDS: Acetaminophen 500 MG Tablet 1000 MG PO ×3 (05:10→20:21)
[2025-05-11] MEDS: Cefazolin 1 GM/50 ML BAG IV (05:12)
[2025-05-11] MEDS: APIXABAN 5 MG TABLET PO ×2 (05:13→20:59)
[2025-05-11 06:44] LABS: Hemoglobin 10.8 g/dL (12.0-15.0); Mean Corp Hgb Conc 31.8 g/dL (32-36); Mean Corpuscular Hgb 28.4 pg (27.0-32.0); Mean Corpuscular Volume 89.5 fL (81-99); Mean Platelet Vol. 10.8 fl (6.2-12.0); Platelet Count 182 K/mm3 (150-450); RBC Distribution Width CV 14.5 % (11.6-14.6); RBC Distribution Width SD 47.4 fl (35.1-43.9); White Blood Count 7.4 K/mm3 (4.4-11.0)
[2025-05-11 07:21] LABS: Anion Gap 9 (5-15); BUN 9 mg/dL (4-19); BUN/Creat Ratio 18.1 RATIO (10-20); Calcium,Total 8.9 mg/dL (7.6-11.0); Carbon Dioxide 25.2 mmol/L (21.0-32.0); Chloride 105 mmol/L (98-108); Creatinine, Serum 0.49 mg/dL (0.70-1.20); EST Glomerular Filtration Rate 100 (>60); Glucose 103 mg/dL (70-99); Potassium 3.7 mmol/L (3.3-5.1); Sodium Level 140 mmol/L (133-145)
[2025-05-11 08:57] VITALS: BP 118/55; PULSE 104; RESP 20; TEMP 36.9; O2SAT 97
[2025-05-11] MEDS: Ensure Surgery 237 ML LIQUID PO (09:08)
[2025-05-11] MEDS: Senna/Docusate Sodium 1 Tablet 2 TABLET PO ×2 (09:10→20:59)
[2025-05-11] MEDS: Famotidine 20 MG Tablet PO (09:11)
[2025-05-11] MEDS: 0.9% Saline Lock 10 ML Syringe IV (09:13)
[2025-05-11] MEDS: oxyCODONE CR 15 MG Tablet PO ×2 (11:32→20:59)
[2025-05-11] MEDS: Doxycycline 100 MG CAPSULE PO ×2 (12:30→20:58)
[2025-05-11] MEDS: Polyethylene Glycol 3350 17 GM PACKET PO (12:30)
--- NOTE | 2025-05-11 12:43 | CASEMGMT ---
MAK PHILIP Assessment: Face to Face with pt for initial transition planning/care coordination assessment. MAK PHILIP introduced self and role at [facility], pt voices understanding and consents to assessment. Pt is A&O x4 and answers all questions appropriately at this time. Pt sitting up in chair in no distress. Pt states she just worked with therapy. Care providers, pharmacy, and demographics verified/updated. Admitting Dx: TKR Revision Strata Score: 1 PCP:Jeremias Specialists:delia Guerrier; Emily, mark; joann Augustine Preferred Pharmacy: [facility] Retail Insurance: [facility] Prescription Benefit: yes LNOK: Ilir Staples, ; Anjana Mary, dtr Living Arrangements: Pt lives with in a two story home with FFSU and 2-3 steps to enter without a rail. Pt reports her assists her with bathing, lower body dressing, meals and groceries. Pt does the laundry. Pt states her cannot care for her at home post surgery. Transportation: Pt drives self and denies concerns with transportation. Pt can transport her until she can drive again. DME:polar care, shower chair, walker, oxygen through [employer], pox HHC/SNF: Pt has had [facility] HHC in the past and [facility] Pt states she would like to go to [facility]. She states if the insurance does not approve, she will private pay. Pt denies need for a list of other options for SNF. Pt states no further concerns/needs. CM to follow. Advised pt to ask CM if any further questions/concerns/needs arise, voices understanding. Pt Goal: [facility] TCU Plan: [facility] TCU pending acceptance and precert Updated SW on pt request. Briana CORADO CM
[2025-05-11 14:20] VITALS: BP 119/64; PULSE 99; RESP 18; TEMP 36.9; O2SAT 99
--- NOTE | 2025-05-11 15:02 | CHAPLAIN ---
Type of Pastoral Visit _x__ Initial Visit ___ Follow-up Visit ___ On-call Visit ___ General Patient Visit ___ Spiritual Assessment ___ Family Conference ___ Bereavement ___ Rapid Response ___ Code Blue ___ Other (describe below) Pastoral Care Referral From _x__ Patient ___ Family ___ Nurse ___ Physician ___ Director Patient Accounting ___ Mussel Opener ___ Other (describe below) Sacrament/Intervention _x__ Active listening ___ Anointing ___ Uatsdin ___ Bereavement ___ Communion _x__ Kaylan exploration ___ ___ Life review _x__ Prayer ___ Reconciliation ___ Sacrament of Sick ___ Supportive presence ___ Wedding ___ Other (describe below) Pastoral Comments patient had been seen before for a knee surgery; pt reviews what has transpired and the resulting repeat surgery; pt is tearful and admits to the pain being high, the discouragement of past surgeries, and not being able to do what she normally would enjoy; pt asks for prayer support
--- NOTE | 2025-05-11 15:46 | VDLE_ITS ---
Reason For Study Reason For Study: LLE Pain RIGHT LEFT CFV is compressible, spontaneous, phasic, competent GSV is normal. and demonstrates normal augmentation. CFV is compressible, spontaneous, phasic, competent, Procedure and demonstrates normal augmentation. This is a venous duplex using B-mode, color flow and FV is compressible, spontaneous, phasic, competent spectral Doppler. and demonstrates normal augmentation. Exam performed portable in patient room. POP V is compressible, spontaneous, phasic, competent Limited views were obtained of Mid/Dist FV - Pop V and demonstrates normal augmentation. due to Post Op swelling and patient's restricted T/P Trunk is compressible. range of motion at the knee. PTV is compressible. A preliminary report was called and/or faxed to M/S 3 LT PerV is compressible. MAK Lew. VL/Venous Duplex US, Unilateral Interpretation Summary Deep veins of the left lower extremity are patent and compressible segmentally. There is no evidence of left lower extremity deep vein thrombosis. Valvular competence appears intact within the p roximal deep venous system on the left . The left great saphenous vein appears patent and compressible segmentally. The right common femoral vein is patent and compressible . Portions of the left femoral vein and popliteal vein were not we ll visualized due to swelling and positional factors. Ordering Physician: Kasey Nunez Referring Physician: Scott Mcdowell Chi Performed By: Jose Jerez, RVT
--- NOTE | 2025-05-11 15:48 | PN.ORTHO_ITS ---
Subjective Subjective Patient is sitting uncomfortably in bedside chair. Patient is very tearful during examination. Patient states that she is in a lot of pain. Patient states that she was not expecting her pain to be this much worse than the original knee replacement. Patient states that she is regularly asking for pain medication but does not like taking it. Patient was educated that she works with physical therapy but states she does not know how anyone goes home and feels that she cannot even get in a car or go to the bathroom. Patient states that she is really hoping she can go to TCU as she was told there would be a spot for her in TCU. Patient denies any new numbness or tingling. Patient denies any nausea vomiting or dizziness. Patient denies any fevers, chills, signs of infection. Patient denies any shortness of breath, chest pain, calf pain. Objective Data Objective Data Vital Signs: Vital Signs Temp Pulse Resp BP Pulse Ox O2 Del Method O2 Flow Rate 98.4 F 99 18 119/64 99 Nasal Cannula 2 05/11/25 14:20 05/11/25 14:20 05/11/25 14:20 05/11/25 14:20 05/11/25 14:20 05/11/25 14:20 05/11/25 14:20 Oxygen Flow Rate (L/min) 2 Oxygen Delivery Method Nasal Cannula Weight: 76.5 kg Body Mass Index (BMI) 32.9 Intake & Output: Intake and Output for Last 24 Hours 05/09/25 05/10/25 05/11/25 23:59 23:59 23:59 Intake Total 3050 / 3050 1050 / 1050 Output Total 125 / 125 Balance 2925 / 2925 1050 / 1050 Lab / Micro Data 05/11/25 05:47 05/11/25 05:47 Labs: Laboratory Results - last 24 hr 05/11/25 05:47: WBC 7.4, RBC 3.80 L, Hgb 10.8 L, Hct 34.0 L, MCV 89.5, MCH 28.4, MCHC 31.8 L, RDW Std Deviation 47.4 H, RDW Coeff of Xi 14.5, Plt Count 182, MPV 10.8, Sodium 140, Potassium 3.7, Chloride 105, Carbon Dioxide 25.2, Anion Gap 9, BUN 9, Creatinine 0.49 L, Estim Creat Clear Calc 58.10, Est GFR (MDRD) Non-Af 100, BUN/Creatinine Ratio 18.1, Glucose 103 H, Calcium 8.9 Micro: Microbiology 05/10/25 15:05 Tissue - Knee Gram Stain - Final 05/10/25 15:11 Tissue - Femoral Membrane Gram Stain - Final 05/10/25 15:09 Tissue - Tibial Membrane Gram Stain - Final Radiography Diagnostic Testing: Radiology Impression Knee X-Ray 05/10/25 17:25 IMPRESSION: Status post left knee arthroplasty. Reading Location: [place] [address] Physical Exam Narrative Vital signs stable and afebrile. SCDs and ELLA hose are in place bilaterally Knee immobilizer in place Patient is able to plantarflex and dorsiflex actively. Sensation intact to light touch. Neurovascular intact overall. Dressing is clean dry and intact. Positive Homans left side. Negative Homans right Const alert, oriented x3 and no apparent distress Assessment & Plan Assessment/Plan (1) Failed total left knee replacement: QUALIFIERS: Encounter type: sequela Qualified Code(s): T84.093S - 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 PLAN: 1. S/P revision left total knee replacement, entire femoral component POD #1 2. Pain Medications: Tylenol 1000 mg every 8 hours, and oxycodone as needed for pain control. Patient is not to take any anti-inflammatory medications while on her regular dose of Eliquis. 3. DVT Prophylaxis: Patient is to resume her regular dose of Eliquis. 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 Patient will continue with ELLA hose for 2 weeks postoperatively. 4. PT/OT: Patient will be weightbearing as tolerated with her walker. Patient does not have outpatient physical therapy established as she is in hopes and thought she was going to transitional care unit. 5. H & H: 10.8/34.0, asymptomatic. Patient's vitals are stable and patient is afebrile. Patient's hemoglobin is above the threshold of 10 at this point do not need to begin any ferrous sulfate or folic acid. 6. Doxycycline: Patient will be on doxycycline for 2 weeks postoperatively due to nature of revision surgery. Patient was educated on the risk of sunburn while taking doxycycline. Patient was educated to take a probiotic while taking doxycycline. Patient voiced understanding. 7. Microbiology: All microbiology is still pending at this point. Will continue to monitor and review. 8. Patient would like to go to the transitional care unit as she states her primary care provider stated that there would be a spot for her there following surgery. 9. Incentive spirometry: Patient was encouraged to use incentive spirometer every hour that they will be awake for the first week to decrease risk of postoperative lung infection. 10. Postoperative constipation: Will continue with senna 2 tablets twice daily until first bowel movement. Patient was advised if not having a bowel movement after day 3 she is to contact orthopedics so appropriate change can be made. Patient states that she has had a bowel movement at this time. 11. Continue postoperative medical treatment per medicine 12. Patient did have positive Homans on examination today. Doppler ultrasound was ordered to rule out blood clot due to previous history of DVT and pulmonary embolism. 13. Disposition: Patient at this time is currently not ready for discharge. Due to the nature of revision surgery we will plan to watch cultures and microbiology for 48 hours. At this time patient does state that she is very painful and cannot imagine how anyone goes home following a surgery like this. Patient states that she was promised a spot in the TCU from her primary care provider. Case management is working on getting acceptance and precertification from patient's insurance to go to [facility] TCU. Patient was educated that we cannot promise there will be a spot available for her in the TCU at this time. Patient will continue to work with physical therapy and be weightbearing as tolerated with a walker. Patient was encouraged that she needs to stay on top of her pain and take medication if she needs it. Patient was educated in order to get her knee bending she needs to better control her pain to work with physical therapy to avoid postoperative stiffness. Patient voiced understanding. Medicine and case management are involved in this case. Appreciate recommendations from medicine as well as case management for safe and proper discharge. Patient will have follow-up with our office in 2 weeks for reevaluation. Patient was encouraged to call with any questions, concerns, new problems.
--- NOTE | 2025-05-11 16:19 | CASEMGMT ---
Social Work SW received referral that pt is requesting to go to TCU. SW met with pt and introduced self and role of SW. SW reviewed therapy notes and recommendations with pt. Pt was mod I for ambulation and ADLs. SW explained that therapy recommends pt could return home with home health or outpt therapy. Pt is very upset and begins crying stating that there is no way she will be able to return home. Pt stating that the pain is too much to handle at home and she cannot move her leg. SW attempted to review how pt did with therapy and that insurance will likely not cover TCU stay, but pt is not open to SW's education. Pt certain she cannot return home and will go to TCU. Referral made to TCU and they are able to accept. Dankert to be started. NIK did educate pt that pt if insurance denies pt will need to pay 21 days upfront ($13,860). NIK discussed case with Ortho PA who is agreeable to try for TCU. Plan: TCU, pending ALEKS Early
--- NOTE | 2025-05-11 17:36 | PCM.PN.HOSP ---
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 The orthopedic PA noticed swelling in the patient's left calf area and ordered a duplex study on the lower extremity. Patient however is on full anticoagulation due to a PE years earlier in the year (December 2024). Objective Data Objective Data Vital Signs: Vital Signs Temp Pulse Resp BP Pulse Ox O2 Del Method O2 Flow Rate 98.4 F 99 18 119/64 99 Nasal Cannula 2 05/11/25 14:20 05/11/25 14:20 05/11/25 14:20 05/11/25 14:20 05/11/25 14:20 05/11/25 14:20 05/11/25 14:20 Oxygen Flow Rate (L/min) 2 Oxygen Delivery Method Nasal Cannula Weight: 76.5 kg Body Mass Index (BMI) 32.9 Intake & Output: Intake and Output for Last 24 Hours 05/09/25 05/10/25 05/11/25 23:59 23:59 23:59 Intake Total 3050 / 3050 1050 / 1050 Output Total 125 / 125 Balance 2925 / 2925 1050 / 1050 Lab / Micro Data 05/11/25 05:47 05/11/25 05:47 Labs: Laboratory Results - last 24 hr 05/11/25 05:47: WBC 7.4, RBC 3.80 L, Hgb 10.8 L, Hct 34.0 L, MCV 89.5, MCH 28.4, MCHC 31.8 L, RDW Std Deviation 47.4 H, RDW Coeff of Xi 14.5, Plt Count 182, MPV 10.8, Sodium 140, Potassium 3.7, Chloride 105, Carbon Dioxide 25.2, Anion Gap 9, BUN 9, Creatinine 0.49 L, Estim Creat Clear Calc 58.10, Est GFR (MDRD) Non-Af 100, BUN/Creatinine Ratio 18.1, Glucose 103 H, Calcium 8.9 Micro: Microbiology 05/10/25 15:05 Tissue - Knee Gram Stain - Final 05/10/25 15:11 Tissue - Femoral Membrane Gram Stain - Final 05/10/25 15:09 Tissue - Tibial Membrane Gram Stain - Final Radiography Diagnostic Testing: Radiology Impression Knee X-Ray 05/10/25 17:25 IMPRESSION: Status post left knee arthroplasty. Reading Location: [place] [id number] Physical Exam Const alert, oriented x3, no apparent distress and healthy appearing General Appearance: cooperative, well kempt and well developed Orientation / Consciousness: awake, oriented to person, oriented to place and oriented to time HEENT normocephalic, head/scalp atraumatic, moist oral mucous membranes and oropharynx normal Eyes PERRL, EOMs intact bilaterally and conjunctivae normal Neck supple, no JVD, thyroid normal and no carotid bruits General: trachea midline Resp normal respiratory effort, no retractions, no use of accessory muscles and clear to auscultation bilaterally Auscultation: Negative for rales, rhonchi or wheezes Cardio regular rate, regular rhythm, S1 normal heart sound, S2 normal heart sound, no murmurs, no rub and no gallops GI normal to inspection, nondistended, normoactive bowel sounds, soft to palpation, non-tender and non-distended Extremity no clubbing, cyanosis or edema Skin no rashes or lesions noted General Skin Exam: no breakdown Neuro oriented x3, CN's II-XII intact bilaterally, moves all extremities, no focal motor deficits and no sensory deficits noted Sensorium / Orientation: awake and alert Speech: speech normal Psych affect normal Assessment & Plan Assessment/Plan (1) Pulmonary hypertension: PLAN: Plan 1. 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
[2025-05-11 20:00] VITALS: BP 105/37; PULSE 99; RESP 17; TEMP 37.2; O2SAT 95
[2025-05-11 20:50] VITALS: BP 114/45; PULSE 98; O2SAT 99
[2025-05-12] VITALS (7 sets, daily range): BP systolic 101–113; BP diastolic 34–59; PULSE 85–99; RESP 16–18; TEMP 36.8–37.1; O2SAT 96–100
[2025-05-12] MEDS: oxyCODONE 5 MG Tablet PO ×4 (02:00→20:23)
[2025-05-12] MEDS: Acetaminophen 500 MG Tablet 1000 MG PO ×3 (05:34→22:37)
[2025-05-12] MEDS: Ensure Surgery 237 ML LIQUID PO (08:28)
--- NOTE | 2025-05-12 09:10 | PN.ORTHO_ITS ---
Subjective Subjective Patient up to chair recliner this morning. Does report more intense pain than after her total knee replacement done in October. Patient does require oxygen at night and with ambulation. This is likely due to her previous saddle embolus and residual issues. She was able to participate with physical therapy yesterday and walked 220 feet. Therapy had good report. Patient does have a desire to go to the transitional care unit postoperatively. Does have some concerns that when she takes pain medicines her blood pressure does decrease. Reports some twitching in her calf. Reports weakness with quad function. Was able to obtain 40 to 50 degrees flexion yesterday with therapy. Objective Data Objective Data Vital Signs: Vital Signs Temp Pulse Resp BP Pulse Ox O2 Del Method O2 Flow Rate 98.3 F 85 16 113/43 L 96 Nasal Cannula 2 05/12/25 08:00 05/12/25 08:00 05/12/25 08:00 05/12/25 08:02 05/12/25 08:00 05/12/25 08:03 05/12/25 08:03 Oxygen Flow Rate (L/min) 2 Oxygen Delivery Method Nasal Cannula Weight: 168 lb 10.458 oz Body Mass Index (BMI) 32.9 Intake & Output: Intake and Output for Last 24 Hours 05/10/25 05/11/25 05/12/25 23:59 23:59 23:59 Intake Total 3050 / 3050 1350 / 1350 250 / 250 Output Total 125 / 125 Balance 2925 / 2925 1350 / 1350 250 / 250 Lab / Micro Data Attestation: I reviewed the patient's lab results. 05/11/25 05:47 05/11/25 05:47 Micro: Microbiology 05/10/25 15:05 Tissue - Knee Gram Stain - Final 05/10/25 15:11 Tissue - Femoral Membrane Gram Stain - Final 05/10/25 15:09 Tissue - Tibial Membrane Gram Stain - Final Radiography Diagnostic Testing: Postoperative x-rays were reviewed. Stable total knee replacement revision femoral component. Physical Exam Narrative Left lower extremity: Dressing is clean dry and intact Sensations intact to light touch saphenous, sural, superficial peroneal, deep peroneal, and tibial distributions Motors intact EHL, DF, PF calves are soft and supple Patient does have difficulty with knee extension against gravity with pain and suspected quadriceps intubation. No excessive swelling or erythema is appreciated. 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 S/P revision left total knee replacement, entire femoral component POD #2 2. Pain Medications: Tylenol 1000 mg every 8 hours, Oxycontin BID scheduled and oxycodone as needed for pain control. Patient is not to take any anti- inflammatory medications while on her regular dose of Eliquis. Has had some decreased blood pressure with dose of COVID along as needed meds 3. DVT Prophylaxis: Patient is to resume her regular dose of Eliquis. 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 Patient will continue with ELLA hose for 2 weeks postoperatively. SCDs while in house. If patient does go to do transitional care unit would recommend SCDs for the first 2 weeks. Most recent ultrasounds showed resolution of DVT. 4. PT/OT: Patient will be weightbearing as tolerated with her walker. Patient does not have outpatient physical therapy established as she is in hopes and thought she was going to transitional care unit. Current therapy recommendations are for discharge home. 5. H & H: Most recent 10.8/34.0, asymptomatic. Patient's vitals are stable and patient is afebrile. Patient's hemoglobin is above the threshold of 10 at this point do not need to begin any ferrous sulfate or folic acid. Will recheck labs tomorrow morning. Patient stable from yesterday. 6. Doxycycline: Patient will be on doxycycline for 2 weeks postoperatively due to nature of revision surgery. Patient was educated on the risk of sunburn while taking doxycycline. Patient was educated to take a probiotic while taking doxycycline. Patient voiced understanding. 7. Microbiology: Gram stains x 3 without microorganism. Will continue to follow cultures. 8. Patient would like to go to the transitional care unit as she states her primary care provider stated that there would be a spot for her there following surgery. Have requested precertification from insurance awaiting results. Patient notes she will self-pay if she does not qualify for insurance standpoint cost of been discussed the patient. This will likely take through the weekend as we are unlikely to have an insurance response on Wednesday or Wednesday. 9. Incentive spirometry: Patient was encouraged to use incentive spirometer every hour that they will be awake for the first week to decrease risk of postoperative lung infection and atelectasis. 10. Postoperative constipation: Will continue with senna 2 tablets twice daily until regular bowel movements. Patient was advised if not having a bowel movement after day 3 she is to contact orthopedics so appropriate change can be made. Patient states that she has had a bowel movement at this time. 11. Continue postoperative medical treatment per medicine 12. Patient did have positive Homans on examination yesterday. Doppler ultrasound was ordered to rule out blood clot due to previous history of DVT and pulmonary embolism. Doppler has not been yet completed. I did speak with nursing genetic supervisor we will call in the vascular team to complete this today. 13. Hypotension: Patient has slight amount of hypotension. Seems to have increased hypotension with dosing of narcotics. Continue with regular vitals encourage p.o. fluid intake. Appreciate medical input. 14. Disposition: Patient at this time is currently awaiting petition for insurance for coverage of transitional care unit. Due to the nature of revision surgery we will plan to watch cultures and microbiology for 48 hours, cultures have not yet returned likely return later today for initial results. Patient has progressive physical therapy was able to walk 220 feet yesterday. Patient does state that she is very painful and cannot imagine how anyone goes home following a surgery like this. Patient states that she was promised a spot in the TCU from her primary care provider. I did explain to the patient that this is not ensure that her insurance will approve treatment with a transitional care unit if she does not meet appropriate qualifications. Patient understands and does report willingness to pay privately. Case management is working on getting precertification from patient's insurance to go to [facility] TCU. Patient was educated in order to get her knee bending she needs to better control her pain to work with physical therapy to avoid postoperative stiffness. Patient voiced understanding. Medicine and case management are involved in this case. Appreciate recommendations from medicine as well as case management for safe and proper discharge. Patient will have follow-up with our office in 2 weeks for reevaluation. Staff is encouraged to call with any questions, concerns, new problems.
--- NOTE | 2025-05-12 09:48 | CPS ---
Patient wears 2L HS
[2025-05-12] MEDS: APIXABAN 5 MG TABLET PO ×2 (10:12→22:37)
[2025-05-12] MEDS: Doxycycline 100 MG CAPSULE PO ×2 (10:12→22:37)
[2025-05-12] MEDS: Senna/Docusate Sodium 1 Tablet 2 TABLET PO ×2 (10:13→22:37)
[2025-05-12] MEDS: Famotidine 20 MG Tablet PO (10:14)
[2025-05-12] MEDS: oxyCODONE CR 15 MG Tablet PO ×2 (10:17→22:37)
--- NOTE | 2025-05-12 16:29 | PN.HOSP_ITS ---
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 I confirmed this with the patient today. Objective Data Objective Data Vital Signs: Vital Signs Temp Pulse Resp BP Pulse Ox O2 Del Method O2 Flow Rate 98.7 F 99 18 107/48 L 100 Nasal Cannula 2 05/12/25 14:17 05/12/25 14:17 05/12/25 14:17 05/12/25 14:17 05/12/25 14:17 05/12/25 15:51 05/12/25 15:51 Oxygen Flow Rate (L/min) 2 Oxygen Delivery Method Nasal Cannula Weight: 76.5 kg Body Mass Index (BMI) 32.9 Intake & Output: Intake and Output for Last 24 Hours 05/10/25 05/11/25 05/12/25 23:59 23:59 23:59 Intake Total 3050 / 3050 1350 / 1350 600 / 600 Output Total 125 / 125 Balance 2925 / 2925 1350 / 1350 600 / 600 Lab / Micro Data 05/11/25 05:47 05/11/25 05:47 Micro: Microbiology 05/10/25 15:05 Tissue - Knee Gram Stain - Final 05/10/25 15:05 Tissue - Knee Wound Culture - Preliminary No growth-Final to follow 05/10/25 15:09 Tissue - Tibial Membrane Gram Stain - Final 05/10/25 15:09 Tissue - Tibial Membrane Wound Culture - Preliminary No growth-Final to follow 05/10/25 15:11 Tissue - Femoral Membrane Gram Stain - Final 05/10/25 15:11 Tissue - Femoral Membrane Wound Culture - Preliminary No growth-Final to follow Physical Exam Narrative alert, oriented x3, no apparent distress and healthy appearing General Appearance: cooperative, well kempt and well developed Orientation / Consciousness: awake, oriented to person, oriented to place and oriented to time HEENT normocephalic, head/scalp atraumatic, moist oral mucous membranes and oropharynx normal Eyes PERRL, EOMs intact bilaterally and conjunctivae normal Neck supple, no JVD, thyroid normal and no carotid bruits General: trachea midline Resp normal respiratory effort, no retractions, no use of accessory muscles and clear to auscultation bilaterally Auscultation: Negative for rales, rhonchi or wheezes Cardio regular rate, regular rhythm, S1 normal heart sound, S2 normal heart sound, no murmurs, no rub and no gallops GI normal to inspection, nondistended, normoactive bowel sounds, soft to palpation, non-tender and non-distended Extremity no clubbing, cyanosis or edema Skin no rashes or lesions noted General Skin Exam: no breakdown Neuro oriented x3, CN's II-XII intact bilaterally, moves all extremities, no focal motor deficits and no sensory deficits noted Sensorium / Orientation: awake and alert Speech: speech normal Psych affect normal Assessment & Plan Assessment/Plan (1) Failed total left knee replacement: QUALIFIERS: Encounter type: sequela Qualified Code(s): T84.093S - 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 Total clinical time spent by myself addressing the patient's medical issues, reviewing all of her data, and collaborating with patient's care team: 35 minutes Charges/Coding Visit Charges Inpatient E&M: 81527 Subs Hosp L2
[2025-05-13] VITALS (7 sets, daily range): BP systolic 96–109; BP diastolic 43–60; PULSE 79–94; RESP 16; TEMP 36.3–37.2; O2SAT 93–99
[2025-05-13] MEDS: oxyCODONE 5 MG Tablet PO ×5 (03:39→23:11)
[2025-05-13] MEDS: Acetaminophen 500 MG Tablet 1000 MG PO ×3 (06:53→23:12)
--- NOTE | 2025-05-13 09:49 | PN.ORTHO_ITS ---
Subjective Subjective The patient was sitting in bedside chair upon examination. Patient is currently on room air without distress. She does require the oxygen overnight. She has past history of pulmonary embolism. She states she is never felt short of breath but will get increased heart rate and dizziness and lightheadedness. She has not experienced that yesterday or today. She has been monitoring with pulse ox. Patient denies any chest pain, shortness of breath, dizziness, lightheadedness, nausea or vomiting, or calf pain. Patient continues to be in significant pain with her left knee. She is currently on long-acting and short acting narcotic. She is also on extra strength Tylenol. Patient reports that she is having to ask to get her pain medication. The ice has not been appropriately filled. Patient reports that she did not receive any formal physical therapy yesterday. The nurse did get her up and walk and she has been working on her exercises on her own. Objective Data Objective Data Vital Signs: Vital Signs Temp Pulse Resp BP Pulse Ox O2 Del Method O2 Flow Rate 98.5 F 79 16 109/51 L 97 Nasal Cannula 2 05/13/25 09:08 05/13/25 09:08 05/13/25 09:08 05/13/25 09:08 05/13/25 09:08 05/13/25 09:23 05/13/25 09:23 Oxygen Flow Rate (L/min) 2 Oxygen Delivery Method Nasal Cannula Weight: 76.5 kg Body Mass Index (BMI) 32.9 Intake & Output: Intake and Output for Last 24 Hours 05/11/25 05/12/25 05/13/25 23:59 23:59 23:59 Intake Total 1350 / 1350 950 / 1250 600 / 600 Balance 1350 / 1350 950 / 1250 600 / 600 Lab / Micro Data 05/11/25 05:47 05/11/25 05:47 Micro: Microbiology 05/10/25 15:05 Tissue - Knee Gram Stain - Final 05/10/25 15:05 Tissue - Knee Wound Culture - Preliminary No growth-Final to follow 05/10/25 15:09 Tissue - Tibial Membrane Gram Stain - Final 05/10/25 15:09 Tissue - Tibial Membrane Wound Culture - Preliminary No growth-Final to follow 05/10/25 15:11 Tissue - Femoral Membrane Gram Stain - Final 05/10/25 15:11 Tissue - Femoral Membrane Wound Culture - Preliminary No growth-Final to follow Physical Exam Narrative Vital signs stable and afebrile. Patient does have some soft blood pressure readings particularly around narcotic medication. She denies shortness of breath or dizziness today. SCDs and ELLA hose are in place bilaterally Patient is able to plantarflex and dorsiflex actively. Sensation is intact to light touch to saphenous, sural, superficial and deep peroneal, and tibial distribution. Dressing is clean dry and intact. Negative Homans bilaterally, negative signs and symptoms of DVT. 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 S/P revision left total knee replacement, entire femoral component POD #3 2. Pain Medications: Tylenol 1000 mg every 8 hours, Oxycontin BID scheduled and oxycodone as needed for pain control. Patient is not to take any anti- inflammatory medications while on her regular dose of Eliquis. Has had some decreased blood pressure with dose of COVID along as needed meds. Patient states her pain has been significantly increased after this surgery from previous total knee arthroplasty. She had to ask the nurses for pain medications. She continues to have significant increased pain. 3. DVT Prophylaxis: Patient is to resume her regular dose of Eliquis. 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 Patient will continue with ELLA hose for 2 weeks postoperatively. SCDs while in house. If patient does go to do transitional care unit would recommend SCDs for the first 2 weeks. Doppler ultrasound of the lower extremities were negative. 4. PT/OT: Patient will be weightbearing as tolerated with her walker. Patient does not have outpatient physical therapy established as she is in hopes and thought she was going to transitional care unit. Patient did not receive any physical therapy yesterday and had to ask the nurse to get her up to walk. Case was discussed with the charge nurse and it is adamant that patient is getting physical therapy today. Appreciate recommendations for discharge planning. 5. H & H: Most yesterday 10.8/34.0, asymptomatic. Patient's vitals are stable and patient is afebrile. Lab orders will be placed for tomorrow to continue to monitor. 6. Postoperative antibiotics: Currently on doxycycline for 2 weeks postoperatively. Microbiology wound and tissue specimens were reviewed in chart and there is currently no growth or organisms seen today. I discussed with the patient potential side effects of doxycycline including sensitivity to the sunlight and increased risk of skin burn. Recommend patient take appropriate precautions. Also recommend patient to take probiotic while on the antibiotic. Patient voiced understanding agreement. 7. Patient would like to go to the transitional care unit as she states her primary care provider stated that there would be a spot for her there following surgery. Have requested precertification from insurance awaiting results. Patient notes she will self-pay if she does not qualify for insurance standpoint cost of been discussed the patient. This will likely take through the weekend as we are unlikely to have an insurance response on Wednesday or Wednesday. 8. Incentive spirometry: Patient was encouraged to use incentive spirometer every hour that they will be awake for the first week to decrease risk of postoperative lung infection and atelectasis. 9. Postoperative constipation: Will continue with senna 2 tablets twice daily until regular bowel movements. Patient was advised if not having a bowel movement after day 3 she is to contact orthopedics so appropriate change can be made. Patient states that she has had a bowel movement at this time. 10. Continue postoperative medical treatment per medicine 11. Patient did have positive Homans on examination yesterday. Doppler ultrasound was ordered to rule out blood clot due to previous history of DVT and pulmonary embolism. Doppler ultrasound has been negative. Results reviewed. 12. Hypotension: Patient has slight amount of hypotension. Seems to have increased hypotension with dosing of narcotics. Continue with regular vitals encourage p.o. fluid intake. Appreciate medical input. 13. Disposition: Patient continues to complain of increased pain with her left knee. Microbiology results have been reviewed in which there has been no growth on Gram stain and cultures. We will continue with doxycycline. I discussed with the patient adequate pain control and she is needing to make sure she is asking the nurse for narcotic medication as the short acting narcotic is an as needed medication. She voiced understanding. We will continue with the long- acting narcotic OxyContin until Sunday, May 18, 2025. Will continue to monitor her vitals while on the narcotics. Patient at this time is currently awaiting petition for insurance for coverage of transitional care unit. Due to the nature of revision surgery we will plan to watch cultures and microbiology. Patient has progressive physical therapy was able to walk 220 feet on Wednesday. Patient never received any formal therapy yesterday. I did discuss this with the charge nurse and it is adamant that patient is getting physical therapy today. Patient does state that she is very painful and cannot imagine how anyone goes home following a surgery like this. Patient states that she was promised a spot in the TCU from her primary care provider. We did explain to the patient that this is not ensure that her insurance will approve treatment with a transitional care unit if she does not meet appropriate qualifications. Patient understands and does report willingness to pay privately. Case management is working on getting precertification from patient's insurance to go to [facility] TCU. Patient was educated in order to get her knee bending she needs to better control her pain to work with physical therapy to avoid postoperative stiffness. Patient voiced understanding. Medicine and case management are involved in this case. Appreciate recommendations from medicine as well as case management for safe and proper discharge. Patient will have follow-up with our office in 2 weeks for reevaluation. Staff is encouraged to call with any questions, concerns, new problems. I have reviewed the [place] Automated Rx Reporting System (OARRS) report for this patient for refill pattern and other prescriber involvement as part of the appropriate surveillance for the provision of acute and chronic controlled medications. The report was requested and reviewed on the date of this entry and was considered in the prescribing process. This dictation was created using voice recognition software. Phonetic and/or grammatical errors may exist.
[2025-05-13] MEDS: APIXABAN 5 MG TABLET PO ×2 (10:57→23:11)
[2025-05-13] MEDS: Doxycycline 100 MG CAPSULE PO ×2 (10:57→23:09)
[2025-05-13] MEDS: Famotidine 20 MG Tablet PO (10:58)
[2025-05-13] MEDS: Senna/Docusate Sodium 1 Tablet 2 TABLET PO ×2 (10:58→23:10)
[2025-05-13] MEDS: oxyCODONE CR 15 MG Tablet PO ×2 (11:10→23:10)
--- NOTE | 2025-05-13 11:31 | PCM.PN.HOSP ---
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 (05/10/25) Encounter for other preprocedural examination (05/10/25) Subjective Subjective Patient was seen and examined today, she remains medically stable at this time Objective Data Objective Data Vital Signs: Vital Signs Temp Pulse Resp BP Pulse Ox O2 Del Method O2 Flow Rate 98.5 F 83 16 104/43 L 99 Nasal Cannula 2 05/13/25 09:08 05/13/25 11:09 05/13/25 09:08 05/13/25 11:09 05/13/25 11:09 05/13/25 11:09 05/13/25 11:09 Oxygen Flow Rate (L/min) 2 Oxygen Delivery Method Nasal Cannula Weight: 76.5 kg Body Mass Index (BMI) 32.9 Intake & Output: Intake and Output for Last 24 Hours 05/11/25 05/12/25 05/13/25 23:59 23:59 23:59 Intake Total 1350 / 1350 950 / 1250 600 / 600 Balance 1350 / 1350 950 / 1250 600 / 600 Lab / Micro Data 05/11/25 05:47 05/11/25 05:47 Micro: Microbiology 05/10/25 15:05 Tissue - Knee Gram Stain - Final 05/10/25 15:05 Tissue - Knee Wound Culture - Preliminary No growth-Final to follow 05/10/25 15:05 Tissue - Knee Anaerobic Culture - Preliminary No growth in 48 hours. 05/10/25 15:11 Tissue - Femoral Membrane Gram Stain - Final 05/10/25 15:11 Tissue - Femoral Membrane Wound Culture - Preliminary No growth-Final to follow 05/10/25 15:11 Tissue - Femoral Membrane Anaerobic Culture - Preliminary No growth in 48 hours. 05/10/25 15:09 Tissue - Tibial Membrane Gram Stain - Final 05/10/25 15:09 Tissue - Tibial Membrane Wound Culture - Preliminary No growth-Final to follow 05/10/25 15:09 Tissue - Tibial Membrane Anaerobic Culture - Preliminary No growth in 48 hours. Physical Exam Narrative alert, oriented x3, no apparent distress and healthy appearing General Appearance: cooperative, well kempt and well developed Orientation / Consciousness: awake, oriented to person, oriented to place and oriented to time HEENT normocephalic, head/scalp atraumatic, moist oral mucous membranes and oropharynx normal Eyes PERRL, EOMs intact bilaterally and conjunctivae normal Neck supple, no JVD, thyroid normal and no carotid bruits General: trachea midline Resp normal respiratory effort, no retractions, no use of accessory muscles and clear to auscultation bilaterally Auscultation: Negative for rales, rhonchi or wheezes Cardio regular rate, regular rhythm, S1 normal heart sound, S2 normal heart sound, no murmurs, no rub and no gallops GI normal to inspection, nondistended, normoactive bowel sounds, soft to palpation, non-tender and non-distended Extremity no clubbing, cyanosis or edema Skin no rashes or lesions noted General Skin Exam: no breakdown Neuro oriented x3, CN's II-XII intact bilaterally, moves all extremities, no focal motor deficits and no sensory deficits noted Sensorium / Orientation: awake and alert Speech: speech normal Psych affect normal Const alert, oriented x3, no apparent distress and healthy appearing General Appearance: cooperative, well kempt and well developed Orientation / Consciousness: awake, oriented to person, oriented to place and oriented to time HEENT normocephalic, head/scalp atraumatic, moist oral mucous membranes and oropharynx normal Eyes PERRL, EOMs intact bilaterally and conjunctivae normal Neck supple, no JVD, thyroid normal and no carotid bruits General: trachea midline Resp normal respiratory effort, no retractions, no use of accessory muscles and clear to auscultation bilaterally Auscultation: Negative for rales, rhonchi or wheezes Cardio regular rate, regular rhythm, S1 normal heart sound, S2 normal heart sound, no murmurs, no rub and no gallops GI normal to inspection, nondistended, normoactive bowel sounds, soft to palpation, non-tender and non-distended Extremity no clubbing, cyanosis or edema Skin no rashes or lesions noted General Skin Exam: no breakdown Neuro oriented x3, CN's II-XII intact bilaterally, moves all extremities, no focal motor deficits and no sensory deficits noted Sensorium / Orientation: awake and alert Speech: speech normal Psych affect normal Assessment & Plan Assessment/Plan (1) Pulmonary hypertension: PLAN: Plan 1. 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
--- NOTE | 2025-05-13 21:26 | PCM.HP.BLA ---
History and Physical History and Physical Patient Name: Sofia StaplesDOB: 1955 From: ALLA MYLES PA-C DATE OF PRE-OPERATIVE EXAM: 05/03/2025 DATE OF SURGERY: 05/10/2025 SCHEDULED PROCEDURE: Left knee revision femoral component. HISTORY OF PRESENT ILLNESS: The patient presents with a chief complaint of continued stiffness, pain and constant needling pain from her knee down to her foot following a failed total knee arthroplasty. The pain is described as a bee sting sensation and has been present since the day after surgery. The patient reports severe stiffness in her knee, with range of motion limited to 0-15 degrees. She experiences significant pain and swelling with attempts at physical therapy. The patient's surgical history includes a recent total knee replacement complicated by stiffness and persistent pain. The recent knee surgery was further complicated by a pulmonary embolism. The patient also has a history of reflex sympathetic dystrophy (RSD) in her hand, which may contribute to her current nerve pain. Patient's initial recovery after the knee replacement gone well. After around 4 weeks patient began to have pain and started to lose range of motion. It was initially felt that this was likely related to some therapy related swelling or hemarthrosis. However, patient went on to have progressive loss of range of motion and continued pain. Further x-rays were consistent with radiographic lucencies around the femoral component and bony interface. At that time patient was scheduled for revision of the femoral component. However 1 week before her surgery which we did attempt to expedite patient had a pulmonary embolus and was admitted to the hospital. She presents today after having discussions with her primary care physician and hotbed transfer operator to discuss proceeding with surgical intervention as they feel it is appropriate at this time. She does remain on oxygen therapy. The patient reports that her knee swells like a balloon with movement attempts, causing sleep disturbances. She mentions having constant pain from where the robot went into the knee, which makes her foot jump. Numbness extends from her buttocks down to her toes on the affected side. The patient is currently using oxygen with activity and at night. Previous treatments include physical therapy, which has been difficult due to pain and swelling.The patient spent time in transitional care for monitoring following her pulmonary embolism. The patient expresses frustration with her recovery, noting that initially, she thought she was doing well with knee flexion up to 115 degrees, but the needling sensation persisted. She admits to not complaining enough about her pain during her previous recovery period. REVIEW OF SYSTEMS: Review Of Systems: Constitutional: Reports weight change, but denies fever. Cardiovasular: Denies chest pain, heart murmur and irregular heartbeat. Respiratory: Reports cough, but denies pneumonia, shortness of breath, tuberculosis and wheezing. Gastrointestinal: Denies constipation, diarrhea, heartburn, nausea, rectal itching, bloody stools and vomiting. Genitourinary: . (F Genital Sx) . (Urinary Sx) Musculoskeletal: Reports gait disturbance, leg swelling, pain, trouble walking and weakness. Skin: Reports history of shingles, but denies Raynaud's and tattoo. Neurological: Denies ambulatory dysfunction, dizziness, numbness/tingling and tremor. Psychiatric: Denies anxiety, insomnia and stress. Hematologic/Lymphatic: Denies anemia, bleeding/bruising tendency and past transfusion. Reviewed, no changes. PAST MEDICAL HISTORY: Advance Care Plan: Other Directive, LIVING WILL Effective Date: 08/22/2024 Other Directive, POA Effective Date: 08/22/2024 Past Medical History: Medical Problems: Pulmonary Embolism - (01/23/2025) saddle muscle spasms sciatica - left side pulmonary fibrosis respiratory failure - with with hypoxia Vitamin D deficiency Dependence of Oxygen with exertion - 2 liters daily neuropathy - below bilateral knees debillity, anticardiolipin antibody positive History Of Blood Clots/ DVT - (01/23/2025) right leg rheumatoid factor positive, pulmonary hypertension Accidents: Fracture - (1962) Left Wrist [facility]x: Appendectomy - (1966) [facility] Tubal Ligation - (1976) [facility] Knee Replacement LT - (11/16/2024) ROBOTIC ASSISTED DR. GAN AT [facility] Anesthesia Complications: None Assistive Devices: Glasses, Oxygen - 2 liters daily, not at rest or at night , Walker Reviewed, no changes. SOCIAL HISTORY: Social History: Marital: .Occupation: [employer]Work Status: Currently Working - from home.Hand Dominance: Right-handed. Personal Habits: Cigarette Use: Never Smoked Cigarettes.Smokeless Tobacco: Never Used Smokeless Tobacco.E-Cigarette Use: Never used.Alcohol: Occasionally.Drug Use: Denies Use.Enjoy Exercising: Exercises 1-3 X/Week. Reviewed, no changes. VITALS: Ht: 60 Wt: 168lb Wt k.205 BMI: 32.8 BP: 126/70 Pulse: 99 Resp: 17 T: 97.9 T: 36.6C Pain Level: 8/10 O2SatR: 96 ALLERGIES: No Known Drug Allergy MEDICATIONS: Vitamin C 500 mg 1 po bid, Gabapentin 100 mg 2 by mouth three times a day, Eliquis 5 mg on hold due to heparin injections, Tramadol HCL 50 mg 1 by mouth at night, Baclofen 10 mg 1 by mouth every day, Vitamin D 50 mcg (1999) 1 po qdaily, Enoxaparin Sodium 80 mg/0.8ml twice daily, Senna-Docusate Sodium 8.6-50 mg as needed PRE-OP EXAM: General appearance:NORMAL Other: Eyes: Conjunctivae and lids: NORMAL Pupils: ERR Ears, Nose, Mouth, and Throat: NORMAL Other: Inspection of lips, teeth and gums: NORMAL Other: Neck: Examination of neck: no masses noted. Respiratory: Assessment of respiratory effort: NORMAL Other: Auscultation of lungs: clear to auscultation no wheezes, rhonchi or rales. Cardiovascular: Auscultation of heart: regular rate and rhythm, no murmurs, gallops or rubs. Exam of carotid arteries: NORMAL Other: Gastrointestinal: Exam of abdomen: soft, nontender, nondistended bowel sounds present. Lymphatic: Palpation of nodes in neck: NORMAL Other: Palpation of nodes in Axillae: NORMAL Other: Neurological: see below Psychiatric: Orientation to time, place and person: NORMAL Other: Mood and affect: NORMAL Other: PHYSICAL EXAMINATION: General: Nondistressed, on oxygen - Physical Examination: - Musculoskeletal: - Right Knee: - Range of Motion: 0 to 15 degrees. -Large effusion - Gait: Walking with a slight stiffness but overall walking well. - Incision Site: Sensitive. - Neurological: - Foot and Toe Movement: 5 out of 5 dorsiflexion EHL plantarflexion. Sensations intact light touch dorsum of foot. IMAGING STUDIES: - Diagnostic Test Results and Labs: - 2 views of the left knee AP and lateral show findings consistent with previous evidence of radiographic loosening of the femoral component. Tibial component appears to remain stable and well-fixed. These were compared to her most recent set of previous radiographs and found to be consistent. 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 At this time the patient does wish to proceed with the above-stated procedure. Potential risks benefits and complications of the procedure were discussed and reviewed with the patient including but not limited to , infection, nerve and blood vessel damage, persistent pain, numbness, tingling, paresthesias, blood clot, pulmonary embolism, in the requirement for possible further surgery. Patient expressed full understanding. Has no further questions for the doctor. Does agree to proceed with the above-stated procedure, and has signed the appropriate surgery consent form. DVT prophylaxis: Patient will begin regular dose of Eliquis following surgery. Patient will wear ELLA hose for 2 weeks postoperatively. No NSAIDs due to Eliquis. Pain medications: Patient will be on Tylenol 1000 mg every 8 hours, oxycodone as needed for pain control. Patient will take senna as needed for postoperative constipation. Patient will take famotidine for 30 days postoperatively. ___ I have re-examined the patient. There are no clinical changes since date of exam. ___ See progress notes for changes. ___ Dictated on admission Date: Time: Signature:
[2025-05-14 04:00] VITALS: BP 105/48; PULSE 76; RESP 16; TEMP 36.8; O2SAT 99
[2025-05-14] MEDS: oxyCODONE 5 MG Tablet PO ×3 (04:24→14:00)
[2025-05-14 06:07] LABS: Hematocrit 28.7 % (37-47); Hemoglobin 9.3 g/dL (12.0-15.0); Mean Corp Hgb Conc 32.4 g/dL (32-36); Mean Corpuscular Hgb 28.7 pg (27.0-32.0); Mean Corpuscular Volume 88.6 fL (81-99); Mean Platelet Vol. 10.3 fl (6.2-12.0); Platelet Count 220 K/mm3 (150-450); RBC Distribution Width CV 14.3 % (11.6-14.6); RBC Distribution Width SD 46.1 fl (35.1-43.9); Red Blood Count 3.24 M/mm3 (4.2-5.4)
[2025-05-14] MEDS: Acetaminophen 500 MG Tablet 1000 MG PO ×2 (06:40→14:00)
[2025-05-14 08:29] VITALS: BP 98/77; PULSE 78; RESP 16; TEMP 36.6; O2SAT 98
[2025-05-14] MEDS: Famotidine 20 MG Tablet PO (08:50)
[2025-05-14] MEDS: Senna/Docusate Sodium 1 Tablet 2 TABLET PO (08:50)
[2025-05-14] MEDS: Doxycycline 100 MG CAPSULE PO (08:50)
[2025-05-14] MEDS: APIXABAN 5 MG TABLET PO (08:51)
--- NOTE | 2025-05-14 10:29 | CASEMGMT ---
Social Work- SW received notice from TCU admissions that precert has been received. SW met with pt to update. Pt reports that she will let spouse of 54 years know. SW updated ortho PA and hospitalist. SW remains available to follow. ALEKS N[place]
[2025-05-14 10:40] VITALS: BP 113/52; PULSE 86; RESP 16
[2025-05-14] MEDS: oxyCODONE CR 15 MG Tablet PO (10:44)
--- NOTE | 2025-05-14 11:22 | TREXTCAR_ITS ---
Diet Diet Order/Speech Therapy: INPATIENT Hospital Diet / Speech Therapy Order(s) 05/11/25 05:21 Diet: Regular - General Routine Orders/Code Status Code Status: Full Code DC O2, CPAP, BIPAP needs Home O2 Discharge instructions: Yes Type of respiratory needs?: Oxygen Oxygen frequency: Continuous Continuous oxygen liters per minute: 2 L Wound(s) LEFT KNEE: Wound Type: Surgical Incision Therapies Weight Bearing: Full weight bearing (with walker) Physical Therapy: Eval and Treat Occupational Therapy: Eval and Treat Problem/Diagnosis (1) Pulmonary hypertension: Status: Chronic Code(s): I27.20 - Pulmonary hypertension, unspecified Comment: RVSP 40 mmHg (2) Failed total left knee replacement: Status: Acute Code(s): T84.093A - Other 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-status post revision left total knee, entire femoral component-postop day #3 The plan is for the patient to go to TCU for rehab services which she will have to pay from her own funds Total clinical time spent by myself addressing the patient's medical issues, reviewing all of her data, and collaborating with patient's care team: 35 minutes Allergies/Procedures Done in Hospital Allergies No Known Allergies Allergy (Verified 05/10/25 11:25) Procedures: - (revision right total knee replacement, entire femoral component) Type of Care/Length of Stay Estimated LOS: Convalescent Care Less Than 30 days Type of Care Needed: Skilled Rehab Potential: Good Prognosis: Good Additional Orders/Day of Discharge H&P will serve as current which was dated: 05/03/25 Day of Discharge: 05/14/25 Discharge Plan Admission Admit Date/Time: 05/10/25 10:42 Primary Reason for Your Visit: revision of right toal knee replacemt Attending Provider: Jason Diaz Primary Care Provider: Scott Mcdowell [employer] Providers: Lane Harden Discharge Orders/Prescriptions Prescriptions: New acetaminophen 500 mg Tablet 1,000 mg PO Q8 Qty: 0 0RF doxycycline monohydrate 100 mg Capsule 100 mg PO BID Qty: 0 0RF Rx Instructions: administer for 14 days then discontinue Ensure Surgery 0.08-1.4 gram-kcal/mL Liquid 237 ml PO TIDCM Qty: 0 0RF famotidine 20 mg Tablet 20 mg PO DAILY Qty: 0 0RF oxycodone 5 mg Tablet 5 - 10 mg PO Q4H PRN PRN (Reason: Pain Score 4-10) 2 Days Qty: 10 0RF sennosides-docusate sodium [Stimulant Laxative Plus] 8.6-50 mg Tablet 2 tab PO BID Qty: 0 0RF promethazine 25 mg Tablet 12.5 mg PO Q6H PRN PRN (Reason: Nausea/Vomiting) Qty: 0 0RF Continued Eliquis 5 mg Tablet 5 mg PO BID 30 Days Qty: 60 0RF vitamin D3-vitamin K2 125 mcg (5,000 unit)-100 mcg capsule 1 cap PO DAILY Vitamin C 100 mg tablet 600 mg PO DAILY baclofen 10 mg Tablet 10 mg PO QHS Discontinued albuterol sulfate [Ventolin HFA] 90 mcg/actuation HFA aerosol inhaler 2 inh inhalation Q4H PRN (Reason: shortness of breath or wheezing) Qty: 18 11RF gabapentin 100 mg Capsule 200 mg PO TIDCM 30 Days Qty: 180 0RF tramadol 50 mg Tablet 50 mg PO QHS PRN (Reason: Pain Score 4-5 Or Pre Pt/Ot) enoxaparin 80 mg/0.8 mL syringe 80 mg subcut Q12H Referrals / Follow Up: Jason Diaz MD [Med Staff - Active Staff] - See Referral Note (in two weeks) Scott Mcdowell Chi, MD [Primary Care Provider] - Disposition Disposition (needs filled in before D/C Order can be placed): Long Term Facility (2) Failed total left knee replacement Qualifiers: Encounter type: sequela Qualified Code(s): T84.093S - 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
--- NOTE | 2025-05-14 12:37 | PN.ORTHO_ITS ---
Subjective Subjective Patient is comfortable in bedside chair upon examination. Patient is much more cheery than she was when I previously saw her on Wednesday. Patient states that she has had a bowel movement today. Patient states that she has worked with physical therapy and things have went well. Patient states she has been weightbearing with her walker. Patient has been accepted to [facility]CU. Patient states that she feels she just has a lot of swelling in the knee. Patient states that she is feeling much better than over the weekend. Patient denies any fevers, chills, signs of infection. Patient denies any new numbness or tingling. Patient denies any shortness of breath, chest pain. Patient denies any nausea, vomiting, dizziness. Patient denies any adverse events overnight. Objective Data Objective Data Vital Signs: Vital Signs Temp Pulse Resp BP Pulse Ox O2 Del Method O2 Flow Rate 97.8 F 86 16 113/52 L 98 Room Air 2 05/14/25 08:29 05/14/25 10:40 05/14/25 10:40 05/14/25 10:40 05/14/25 08:29 05/14/25 08:30 05/14/25 08:15 Oxygen Flow Rate (L/min) 2 Oxygen Delivery Method Room Air Weight: 76.5 kg Body Mass Index (BMI) 32.9 Intake & Output: Intake and Output for Last 24 Hours 05/12/25 05/13/25 05/14/25 23:59 23:59 23:59 Intake Total 950 / 1250 1400 / 1800 600 / 600 Balance 950 / 1250 1400 / 1800 600 / 600 Lab / Micro Data 05/14/25 05:58 05/11/25 05:47 Labs: Laboratory Results - last 24 hr 05/14/25 05:58: WBC 8.0, RBC 3.24 L, Hgb 9.3 L, Hct 28.7 L, MCV 88.6, MCH 28.7, MCHC 32.4, RDW Std Deviation 46.1 H, RDW Coeff of Xi 14.3, Plt Count 220, MPV 10.3 Micro: Microbiology 05/10/25 15:05 Tissue - Knee Gram Stain - Final 05/10/25 15:05 Tissue - Knee Wound Culture - Final No growth aerobically. 05/10/25 15:05 Tissue - Knee Anaerobic Culture - Preliminary No growth in 48 hours. 05/10/25 15:11 Tissue - Femoral Membrane Gram Stain - Final 05/10/25 15:11 Tissue - Femoral Membrane Wound Culture - Final No growth aerobically. 05/10/25 15:11 Tissue - Femoral Membrane Anaerobic Culture - Preliminary No growth in 48 hours. 05/10/25 15:09 Tissue - Tibial Membrane Gram Stain - Final 05/10/25 15:09 Tissue - Tibial Membrane Wound Culture - Final No growth aerobically. 05/10/25 15:09 Tissue - Tibial Membrane Anaerobic Culture - Preliminary No growth in 48 hours. Physical Exam Narrative Vital signs stable and afebrile. SCDs and ELLA hose are in place bilaterally Knee immobilizer in place Patient is able to plantarflex and dorsiflex actively. Sensation intact to light touch. Neurovascular intact overall. Dressing is clean dry and intact. Negative Homans bilaterally. Tenderness to palpation in left calf with a negative Doppler ultrasound. 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 S/P revision left total knee replacement, entire femoral component POD #4 2. Pain Medications: Tylenol 1000 mg every 8 hours, and oxycodone as needed for pain control. Patient is not to take any anti-inflammatory medications while on her regular dose of Eliquis. Patient was taking OxyContin which has been taken off of the medication list by hospitalist. Patient states that her pain is adequately controlled. 3. DVT Prophylaxis: Patient is to resume her regular dose of Eliquis. 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 Patient will continue with ELLA hose for 2 weeks postoperatively. 4. PT/OT: Patient will be weightbearing as tolerated with her walker. Patient does not have outpatient physical therapy established as she is in hopes and thought she was going to transitional care unit. 5. H & H: 9.3/28.7, asymptomatic. Patient's vitals are stable and patient is afebrile. We will begin ferrous sulfate and folic acid at this time due to a hemoglobin below 10. Patient was educated to get outpatient labs within 5 days and follow-up with primary care provider to manage chronic anemia. Patient was educated about risk of constipation while on ferrous sulfate and folic acid. 6. Doxycycline: Patient will be on doxycycline for 2 weeks postoperatively due to nature of revision surgery. Patient was educated on the risk of sunburn while taking doxycycline. Patient was educated to take a probiotic while taking doxycycline. Patient voiced understanding. 7. Microbiology: All microbiology is still pending at this point. Will continue to monitor and review. 8. Patient has gotten acceptance to transitional care unit at this time. Patient states that she feels ready to go to transitional care unit. 9. Incentive spirometry: Patient was encouraged to use incentive spirometer every hour that they will be awake for the first week to decrease risk of postoperative lung infection. 10. Postoperative constipation: Will continue with senna 2 tablets twice daily until first bowel movement. Patient was advised if not having a bowel movement after day 3 she is to contact orthopedics so appropriate change can be made. Patient states that she has had a bowel movement at this time. 11. Continue postoperative medical treatment per medicine 12. Patient did have a Doppler ultrasound due to positive Homans which was negative. Patient does still have some calf tenderness. 13. Disposition: At this time patient has been accepted to [facility] transitional care unit. Patient states that she feels that she is ready to go to transitional care unit. Patient did have a positive Homans but a Doppler ultrasound was ordered to rule out DVT. Doppler ultrasound was negative. Patient is on doxycycline due to nature of revision surgery. Patient states that she has worked with physical therapy and has done well. Patient was placed on ferrous sulfate and folic acid due to hemoglobin under 10. Patient will continue to be weightbearing as tolerated with walker. Patient was encouraged to stay on top of her pain and take medication when she needs it. Patient was encouraged to continue working hard with physical therapy to get her knee bending to avoid postoperative stiffness again. Patient voiced understanding. Medicine and case management are involved in this case. Appreciate recommendations from medicine as well as patient case management for safe and proper discharge. Patient will have follow-up appointment scheduled at our office in 2 weeks for reevaluation. At this time patient is okay for discharge as long as pain maintains adequately controlled, works with physical therapy, and is okay per medicine doctors instructions. Patient was encouraged to call with any questions, concerns, new problems.
--- NOTE | 2025-05-14 13:39 | CASEMGMT ---
Social Work Precert has been obtained.? Physician updated and pt is ready for discharge today.? SW met with pt and they are agreeable to discharge plan as stated above.? Pt reports that she has let know of discharge. Bedside nurse notified of discharge. Disposition:TCU, skilled level of care under convalescent stay [facility] [place]
--- NOTE | 2025-05-14 14:23 | PCM.PN.HOSP ---
Reason for Visit Reason for Visit: Diagnoses Anemia, unspecified (05/10/25) Pulmonary hypertension, unspecified (05/10/25) 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 (05/10/25) Encounter for other preprocedural examination (05/10/25) Subjective Subjective Patient was seen and examined today, she appears medically stable for discharge to residential facility. I talked with orthopedic surgery about her care today. Objective Data Objective Data Vital Signs: Vital Signs Temp Pulse Resp BP Pulse Ox O2 Del Method O2 Flow Rate 97.8 F 86 16 113/52 L 98 Room Air 2 05/14/25 08:29 05/14/25 10:40 05/14/25 10:40 05/14/25 10:40 05/14/25 08:29 05/14/25 08:30 05/14/25 08:15 Oxygen Flow Rate (L/min) 2 Oxygen Delivery Method Room Air Weight: 76.5 kg Body Mass Index (BMI) 32.9 Intake & Output: Intake and Output for Last 24 Hours 05/12/25 05/13/25 05/14/25 23:59 23:59 23:59 Intake Total 950 / 1250 1400 / 1800 600 / 600 Balance 950 / 1250 1400 / 1800 600 / 600 Lab / Micro Data 05/14/25 05:58 05/11/25 05:47 Labs: Laboratory Results - last 24 hr 05/14/25 05:58: WBC 8.0, RBC 3.24 L, Hgb 9.3 L, Hct 28.7 L, MCV 88.6, MCH 28.7, MCHC 32.4, RDW Std Deviation 46.1 H, RDW Coeff of Xi 14.3, Plt Count 220, MPV 10.3 Micro: Microbiology 05/10/25 15:05 Tissue - Knee Gram Stain - Final 05/10/25 15:05 Tissue - Knee Wound Culture - Final No growth aerobically. 05/10/25 15:05 Tissue - Knee Anaerobic Culture - Preliminary No growth in 48 hours. 05/10/25 15:11 Tissue - Femoral Membrane Gram Stain - Final 05/10/25 15:11 Tissue - Femoral Membrane Wound Culture - Final No growth aerobically. 05/10/25 15:11 Tissue - Femoral Membrane Anaerobic Culture - Preliminary No growth in 48 hours. 05/10/25 15:09 Tissue - Tibial Membrane Gram Stain - Final 05/10/25 15:09 Tissue - Tibial Membrane Wound Culture - Final No growth aerobically. 05/10/25 15:09 Tissue - Tibial Membrane Anaerobic Culture - Preliminary No growth in 48 hours. Physical Exam Narrative alert, oriented x3, no apparent distress and healthy appearing General Appearance: cooperative, well kempt and well developed Orientation / Consciousness: awake, oriented to person, oriented to place and oriented to time HEENT normocephalic, head/scalp atraumatic, moist oral mucous membranes and oropharynx normal Eyes PERRL, EOMs intact bilaterally and conjunctivae normal Neck supple, no JVD, thyroid normal and no carotid bruits General: trachea midline Resp normal respiratory effort, no retractions, no use of accessory muscles and clear to auscultation bilaterally Auscultation: Negative for rales, rhonchi or wheezes Cardio regular rate, regular rhythm, S1 normal heart sound, S2 normal heart sound, no murmurs, no rub and no gallops GI normal to inspection, nondistended, normoactive bowel sounds, soft to palpation, non-tender and non-distended Extremity no clubbing, cyanosis or edema Skin no rashes or lesions noted General Skin Exam: no breakdown Neuro oriented x3, CN's II-XII intact bilaterally, moves all extremities, no focal motor deficits and no sensory deficits noted Sensorium / Orientation: awake and alert Speech: speech normal Psych affect normal Assessment & Plan Assessment/Plan (1) Chronic hypoxic respiratory failure: (2) Pulmonary hypertension: (3) Failed total left knee replacement: QUALIFIERS: Encounter type: sequela Qualified Code(s): T84.093S - 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
--- NOTE | 2025-05-14 15:47 | PCM.DC.SUM ---
Providers Date of Admission: 05/10/25 Primary Care Physician: Dr. Scott Mcdowell MD Consultations 05/10/25 16:27 Consult: Hospitalist Routine Consulting Provider: [facility] Reason for Consult: post op med management EMERGENT Consult: No Notified: No Date Notified: 05/10/25 Time Notified: 16:27 05/11/25 16:33 Consult: Hospitalist Routine Consulting Provider: Lane Harden Reason for Consult: medical management EMERGENT Consult: No Notified: Yes Date Notified: 05/11/25 Time Notified: 09:00 Method of Notification: Verbal Reason For Visit: ERAS, Total Knee Replacement, Revision Diagnosis Discharge Diagnosis (1) Chronic hypoxic respiratory failure: Status: Chronic Code(s): J96.11 - Chronic respiratory failure with hypoxia (2) Pulmonary hypertension: Status: Chronic Code(s): I27.20 - Pulmonary hypertension, unspecified (3) Failed total left knee replacement: Status: Acute Code(s): T84.093A - Other 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, initial encounter Qualifiers: Encounter type: sequela Qualified Code(s): T84.093S - 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 Plan: 1. S/P revision left total knee replacement, entire femoral component POD #4 2. Pain Medications: Tylenol 1000 mg every 8 hours, and oxycodone as needed for pain control. Patient is not to take any anti-inflammatory medications while on her regular dose of Eliquis. Patient was taking OxyContin which has been taken off of the medication list by hospitalist. Patient states that her pain is adequately controlled. 3. DVT Prophylaxis: Patient is to resume her regular dose of Eliquis. 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 Patient will continue with ELLA hose for 2 weeks postoperatively. 4. PT/OT: Patient will be weightbearing as tolerated with her walker. Patient does not have outpatient physical therapy established as she is in hopes and thought she was going to transitional care unit. 5. H & H: 9.3/28.7, asymptomatic. Patient's vitals are stable and patient is afebrile. We will begin ferrous sulfate and folic acid at this time due to a hemoglobin below 10. Patient was educated to get outpatient labs within 5 days and follow-up with primary care provider to manage chronic anemia. Patient was educated about risk of constipation while on ferrous sulfate and folic acid. 6. Doxycycline: Patient will be on doxycycline for 2 weeks postoperatively due to nature of revision surgery. Patient was educated on the risk of sunburn while taking doxycycline. Patient was educated to take a probiotic while taking doxycycline. Patient voiced understanding. 7. Microbiology: All microbiology is still pending at this point. Will continue to monitor and review. 8. Patient has gotten acceptance to transitional care unit at this time. Patient states that she feels ready to go to transitional care unit. 9. Incentive spirometry: Patient was encouraged to use incentive spirometer every hour that they will be awake for the first week to decrease risk of postoperative lung infection. 10. Postoperative constipation: Will continue with senna 2 tablets twice daily until first bowel movement. Patient was advised if not having a bowel movement after day 3 she is to contact orthopedics so appropriate change can be made. Patient states that she has had a bowel movement at this time. 11. Continue postoperative medical treatment per medicine 12. Patient did have a Doppler ultrasound due to positive Homans which was negative. Patient does still have some calf tenderness. 13. Disposition: At this time patient has been accepted to [facility] transitional care unit. Patient states that she feels that she is ready to go to transitional care unit. Patient did have a positive Homans but a Doppler ultrasound was ordered to rule out DVT. Doppler ultrasound was negative. Patient is on doxycycline due to nature of revision surgery. Patient states that she has worked with physical therapy and has done well. Patient was placed on ferrous sulfate and folic acid due to hemoglobin under 10. Patient will continue to be weightbearing as tolerated with walker. Patient was encouraged to stay on top of her pain and take medication when she needs it. Patient was encouraged to continue working hard with physical therapy to get her knee bending to avoid postoperative stiffness again. Patient voiced understanding. Medicine and case management are involved in this case. Appreciate recommendations from medicine as well as patient case management for safe and proper discharge. Patient will have follow-up appointment scheduled at our office in 2 weeks for reevaluation. At this time patient is okay for discharge as long as pain maintains adequately controlled, works with physical therapy, and is okay per medicine doctors instructions. Patient was encouraged to call with any questions, concerns, new problems. Medications at Discharge Home Medications apixaban 5 mg tablet (Eliquis) 5 mg PO BID BLOOD THINNER 30 days #60 tabs 02/06/25 ascorbic acid (vitamin C) 100 mg tablet (Vitamin C) 600 mg PO DAILY SUPPLEMENT 04/16/25 baclofen 10 mg tablet 10 mg PO QHS Muscle Spasm 04/16/25 vitamin D3 125 mcg (5,000 unit)-vitamin K2 100 mcg capsule 1 cap PO DAILY SUPPLEMENT 04/16/25 acetaminophen 500 mg tablet 1,000 mg (2 x 500 mg) PO Q8 Pain #0 tabs 05/14/25 doxycycline monohydrate 100 mg capsule 100 mg PO BID infection #0 caps 05/14/25 famotidine 20 mg tablet 20 mg PO DAILY stomach acid #0 tabs 05/14/25 ferrous sulfate 325 mg (65 mg iron) tablet (FeroSul) 325 mg PO 1200,1700 supplement #0 tabs 05/14/25 folic acid 1 mg tablet 1 mg PO BREAKFAST supplement #0 tabs 05/14/25 nut.tx.comp. immune systm,reg 0.08 gram-1.4 kcal/mL oral liquid (Ensure Surgery) 237 ml PO TIDCM diet supplement #0 mL 05/14/25 oxycodone 5 mg tablet 5 - 10 mg (1 - 2 x 5 mg) PO Q4H PRN PRN Pain Score 4-10 2 days #10 tabs 05/14/25 promethazine 25 mg tablet 12.5 mg (1/2 x 25 mg) PO Q6H PRN PRN Nausea/Vomiting #0 tabs 05/14/25 sennosides 8.6 mg-docusate sodium 50 mg tablet (Stimulant Laxative Plus) 2 tab PO BID constipation #0 tabs 05/14/25 Hospital Course Operations total knee replacement (Status post revision left total knee replacement, entire femoral component.) Summary of Care Provided Hospital Course: Patient is a 70-year-old female presenting for revision left total knee replacement entire femoral component. Patient had a failed left total knee replacement due to a complicated course and getting a saddle PE. Patient has resumed regular dose of Eliquis for DVT prophylaxis due to history of saddle PE. Patient did have a couple of very painful first days in the hospital. Patient was requiring OxyContin. It was documented that Dr. Diaz would like patient on the OxyContin until 05/18/2025. Hospitalist had a discussion with Dr. Diaz, hospitalist stated that Dr. Diaz suggested that the least amount of medications the better and that she could be taken off of OxyContin. Patient was removed off OxyContin today on 05/14/2025. Patient was discharged with Tylenol and oxycodone for pain control. Patient is currently requiring oxygen which she says is typical for her due to the pulmonary fibrosis. Patient did have a positive Homans on 05/11 which a Doppler ultrasound was done and was negative. Patient will continue to be weightbearing as tolerated with her walker. Patient is to stay on top of her pain medication and really push to work on range of motion. Patient had significant issues with stiffness following her first surgery and would like to avoid this. Today was found that patient had a hemoglobin of 9.3 and hematocrit of 28.7. Patient is asymptomatic at this time. Due to patient's hemoglobin being below 10 she was put on ferrous sulfate and folic acid and was given an outpatient lab form to get labs within 5 days and follow-up with primary care provider to help manage chronic anemia. Patient will be on doxycycline due to history of revision surgery. Patient's microbiology currently has no growth and is still pending. Will continue to review and monitor. DVT prophylaxis: Regular dose of Eliquis and ELLA hose for 2 weeks postoperatively. Patient may remove ELLA hose at night for comfort if necessary. Pain medications: Patient will be on Tylenol and oxycodone as needed for pain control. Patient will be on famotidine for 30 days postoperatively. Patient will be on senna for postoperative constipation. Patient does have a 2-week follow-up appointment scheduled with our office. Patient will need outpatient physical therapy established prior to leaving TCU. Patient was encouraged to call with any questions, concerns, new problems. This dictation was created using voice recognition software. Phonetic and/or grammatic errors may exist. Weight / BMI Weight Weight: 76.5 kg Body Mass Index (BMI) 32.9 ABG / Lab / Microbiology Data 05/14/25 05:58 05/11/25 05:47 Laboratory: Laboratory Results - last 24 hr 05/14/25 05:58: WBC 8.0, RBC 3.24 L, Hgb 9.3 L, Hct 28.7 L, MCV 88.6, MCH 28.7, MCHC 32.4, RDW Std Deviation 46.1 H, RDW Coeff of Xi 14.3, Plt Count 220, MPV 10.3 Microbiology: Microbiology 05/10/25 15:05 Tissue - Knee Gram Stain - Final 05/10/25 15:05 Tissue - Knee Wound Culture - Final No growth aerobically. 05/10/25 15:05 Tissue - Knee Anaerobic Culture - Preliminary No growth in 48 hours. 05/10/25 15:11 Tissue - Femoral Membrane Gram Stain - Final 05/10/25 15:11 Tissue - Femoral Membrane Wound Culture - Final No growth aerobically. 05/10/25 15:11 Tissue - Femoral Membrane Anaerobic Culture - Preliminary No growth in 48 hours. 05/10/25 15:09 Tissue - Tibial Membrane Gram Stain - Final 05/10/25 15:09 Tissue - Tibial Membrane Wound Culture - Final No growth aerobically. 05/10/25 15:09 Tissue - Tibial Membrane Anaerobic Culture - Preliminary No growth in 48 hours. D/C Instructions DC O2, CPAP, BIPAP Needs Home O2 Discharge instructions: Yes Type of respiratory needs?: Oxygen Oxygen frequency: Continuous Continuous oxygen liters per minute: 2 L DC home with Oxygen: Yes Home O2 MD Review: I have reviewed the oxygen testing, and the patient qualifies for home oxygen equipment and portability. The patient is mobile in the home and the community. Meaningful Use Info Meaningful Use Meaningful Use Diagnoses (Choose all that apply): VTE Ischemic Stroke Statin Dosing Therapy Reference: STATIN DOSE THERAPY REFERENCE: * Patients > 75 years receive moderate or high dose statin therapy. * Patients 75 years or YOUNGER should receive HIGH intensity statin dose unless contraindicated. You will be required to document reason for non-treatment if statin daily dose does not meet guidelines. HIGH DOSE STATIN THERAPY DAILY Atorvastatin > than or = to 40 mg Rosuvastatin > than or = to 20 mg Amlodipine + Atorvastatin > than or = to 2.5/40 mg Ezetimibe + Simvastatin 10/80 mg Simvastatin 80mg VTE Anticoag overlap given w/in hospital stay or rx'd at dc?: Yes Pt receive overlap for 5 days?: Yes Discharge Plan Admission Admit Date/Time: 05/10/25 10:42 Primary Reason for Your Visit: revision of right toal knee replacemt Attending Provider: Jason Diaz Primary Care Provider: Scott Mcdowell Chi Consulting Providers: Lane Harden Discharge Orders/Prescriptions Prescriptions: New acetaminophen 500 mg Tablet 1,000 mg PO Q8 Qty: 0 0RF doxycycline monohydrate 100 mg Capsule 100 mg PO BID Qty: 0 0RF Rx Instructions: administer for 14 days then discontinue Ensure Surgery 0.08-1.4 gram-kcal/mL Liquid 237 ml PO TIDCM Qty: 0 0RF famotidine 20 mg Tablet 20 mg PO DAILY Qty: 0 0RF oxycodone 5 mg Tablet 5 - 10 mg PO Q4H PRN PRN (Reason: Pain Score 4-10) 2 Days Qty: 10 0RF sennosides-docusate sodium [Stimulant Laxative Plus] 8.6-50 mg Tablet 2 tab PO BID Qty: 0 0RF promethazine 25 mg Tablet 12.5 mg PO Q6H PRN PRN (Reason: Nausea/Vomiting) Qty: 0 0RF ferrous sulfate [FeroSul] 325 mg (65 mg iron) Tablet 325 mg PO 1200,1700 Qty: 0 0RF folic acid 1 mg Tablet 1 mg PO BREAKFAST Qty: 0 0RF Continued Eliquis 5 mg Tablet 5 mg PO BID 30 Days Qty: 60 0RF vitamin D3-vitamin K2 125 mcg (5,000 unit)-100 mcg capsule 1 cap PO DAILY Vitamin C 100 mg tablet 600 mg PO DAILY baclofen 10 mg Tablet 10 mg PO QHS Discontinued albuterol sulfate [Ventolin HFA] 90 mcg/actuation HFA aerosol inhaler 2 inh inhalation Q4H PRN (Reason: shortness of breath or wheezing) Qty: 18 11RF gabapentin 100 mg Capsule 200 mg PO TIDCM 30 Days Qty: 180 0RF tramadol 50 mg Tablet 50 mg PO QHS PRN (Reason: Pain Score 4-5 Or Pre Pt/Ot) enoxaparin 80 mg/0.8 mL syringe 80 mg subcut Q12H Other Ambulatory Orders: CBC W/Diff, Automated (Routine) Timeframe: [id number] Facility: [facility] - Location: Laboratory Ordered By: Kasey Nunez Referrals / Follow Up: Jason Diaz MD [Med Staff - Active Staff] - See Referral Note (in two weeks) Scott Mcdowell Chi, MD [Primary Care Provider] - Disposition Disposition (needs filled in before D/C Order can be placed): [facility]
== END 2025-05-14 14:51 | disposition skilled nursing facility (03) | DRG 467 ==
LOC: MS3 05-14 11:44 → ACINP 05-15 09:21
PROVIDERS: Anesthesiology; Physician Assistant Surgical; Admitting Provider Specialist; PCP Family Medicine Geriatric Medicine; Referring Provider Specialist; Visit Provider Specialist
DX: T84.033A Mechanical loosening of internal left knee prosthetic joint, initial encounter (principal); J96.11 Chronic respiratory failure with hypoxia; G90.519 Complex regional pain syndrome I of unspecified upper limb; I27.20 Pulmonary hypertension, unspecified; T84.82XA Fibrosis due to internal orthopedic prosthetic devices, implants and grafts, initial encounter; J84.10 Pulmonary fibrosis, unspecified; D64.9 Anemia, unspecified; E66.9 Obesity, unspecified; T84.84XA Pain due to internal orthopedic prosthetic devices, implants and grafts, initial encounter; E55.9 Vitamin D deficiency, unspecified; G62.9 Polyneuropathy, unspecified; M17.12 Unilateral primary osteoarthritis, left knee; M54.32 Sciatica, left side; I95.2 Hypotension due to drugs; T40.2X5A Adverse effect of other opioids, initial encounter; Z99.81 Dependence on supplemental oxygen; Y83.1 Surgical operation with implant of artificial internal device as the cause of abnormal reaction of the patient, or of later complication, without mention of misadventure at the time of the procedure; Z68.32 Body mass index [BMI] 32.0-32.9, adult; Z86.711 Personal history of pulmonary embolism; Z86.718 Personal history of other venous thrombosis and embolism; Z79.899 Other long term (current) drug therapy
CPT/HCPCS: 36415; 73560; 80048; 80053; 82962; 83735; 85025; 85027; 85610; 85730; 87015; 87070; 87075; 87102; 87116; 87176; 87205; 87206; 93971; 94668; 97162; 97166; 97530; C1776; A4216; J3475

== ENCOUNTER 2025-05-14 15:04 | Inpatient (IN) | payer MEDICARE, SELFPAY ==
[2025-05-14 15:21] VITALS: BP 113/61; PULSE 87; RESP 16; TEMP 36.6; O2SAT 98; BMI 33.4
[2025-05-14] MEDS: 0.9% Saline Lock 10 ML Syringe IV (16:42)
[2025-05-14] MEDS: Ferrous Sulfate 325 MG Tablet PO (18:03)
--- NOTE | 2025-05-14 19:06 | HP.PCM_ITS ---
HPI - General General Date of Admission: 05/14/25 Date of Service: 05/14/25 Chief Complaint: Here for rehabilitation. HPI Narrative EDSON COOK, is a 70 Female who presents with followin05/10/2025 Admit [facility]. 05/10/2025 Dr. Diaz performed revision left total knee replacement, entire femoral component. 05/11/2025 Walking with walker. Doppler ultrasound left lower extremity 2/2 left calf swelling/+Duane's sign. Oxygen 2 liters per nasal cannula for chronic hypoxia. 05/12/2025 OOB to chair recliner. PT/OT TCU. Doxycycline 100mg bid for infection prophylaxis. Eliquis 5mg bid for dvt prophylaxis/pulmonary embolism/hypercoagulable state. 05/13/2025 Medically stable. Tylenol scheduled, Oxycontin scheduled, Oxycodone prn pain. Doppler ultrasound bilateral lower extremity negative dvt. Surgical cultures negative to date, continue Doxycycline. 05/14/2025 Ella hose 2 weeks postoperatively. Hemoglobin 9.3, start iron folic acid. 05/14/2025 Admit to TCU with debility, here for rehabilitation, strengthening, prior to discharge home with . [facility] Medical History Wears contact lenses Post-menopausal Walker as ambulation aid Blackout Non-smoker On home oxygen therapy Shortness of breath on exertion History of pain when walking History of edema History of echocardiogram Failed total left knee replacement Osteoarthritis of left knee Pulmonary fibrosis Right leg DVT Saddle pulmonary embolus Acute respiratory failure with hypoxia Debility Home Medications ?Medication ?Instructions ?Recorded ?Last Taken ?Type apixaban 5 mg tablet (Eliquis) 5 mg PO BID BLOOD THINN ER 30 days 02/06/25 05/14/25 08:50 Rx #60 tabs ascorbic acid (vitamin C) 100 mg 600 mg PO DAILY SUPPL EMENT 04/16/25 05/05/25 History tablet (Vitamin C) baclofen 10 mg tablet 10 mg PO QHS Muscle Spasm 05/09/25 History vitamin D3 125 mcg (5,000 1 cap PO DAILY SUPPLEMENT 05/05/25 History unit)-vitamin K2 100 mcg capsule acetaminophen 500 mg tablet 1,000 mg (2 x 500 mg) PO Q 8 Pain 05/14/25 05/14/25 06:40 Rx #0 tabs doxycycline monohydrate 100 mg 100 mg PO BID infection #0 caps 05/14/25 05/14/25 08:50 Rx capsule famotidine 20 mg tablet 20 mg PO DAILY stomach acid #0 tabs 05/14/25 05/14/25 08:50 Rx ferrous sulfate 325 mg (65 mg 325 mg PO 1200,1700 supp lement #0 05/14/25 Unknown Rx iron) tablet (FeroSul) tabs folic acid 1 mg tablet 1 mg PO BREAKFAST supplement #0 05/14/25 Unknown Rx tabs nut.tx.comp. immune systm,reg 0.08 237 ml PO TIDCM t supplement #0 05/14/25 05/12/25 Rx gram-1.4 kcal/mL oral liquid mL (Ensure Surgery) oxycodone 5 mg tablet 5 - 10 mg (1 - 2 x 5 mg) PO Q4H 05/14/25 05/14/25 08:50 Rx PRN PRN Pain Score 4-10 2 days #10 tabs promethazine 25 mg tablet 12.5 mg (1/2 x 25 mg) PO Q6H PRN 05/14/25 Unknown Rx PRN Nausea/Vomiting #0 tabs sennosides 8.6 mg-docusate sodium 2 tab PO BID constip ation #0 tabs 05/14/25 05/14/25 08:50 Rx 50 mg tablet (Stimulant Laxative Plus) Allergy/AdvReac Type Severity Reaction Status Date / Time No Known Allergies Allergy Verified 05/10/25 11:25 Surgical History Hx of tubal ligation History of appendectomy Total knee replacement status Social History household members: spouse Smoking Status: Never smoker alcohol intake: never substance use type: does not use ROS Constitutional Constitutional: Reports weakness; Denies chills, fever(s) or weight gain ENT HEENT: Denies headache(s), nasal congestion or nasal discharge Cardiovascular Cardiovascular: Denies chest pain or palpitations Respiratory/Chest Respiratory/Chest: Denies cough, excessive phlegm production or shortness of breath with exertion Gastrointestinal Gastrointestinal: Denies abdominal pain, nausea or vomiting Genitourinary Genitourinary: Denies dysuria Musculoskeletal Musculoskeletal: Reports joint pain; Denies joint swelling Integumentary Integumentary: Denies rash or wounds Neurologic Neurologic: Denies focal weakness, numbness or tingling Psychiatric Psychiatric: Denies anxiety, auditory hallucinations, depression, homicidal ideation or suicidal ideation Vital Signs Vital Signs Vital Signs: 05/14/25 15:21 05/14/25 15:21 Temperature 97.8 F Temperature Source Temporal Pulse Rate 87 87 Pulse Rhythm Regular Pulse Strength Normal (2+) Respiratory Rate 16 16 Respiratory Effort Normal Non-Labored Respiratory Depth Normal Respiratory Pattern Normal Blood Pressure 113/61 Blood Pressure Mean 78 Blood Pressure Source Monitor Blood Pressure Position Sitting Blood Pressure Location Left Arm Pulse Ox 98 98 Oxygen Delivery Method Nasal Cannula Nasal Cannula Oxygen Flow Rate (L/min) 2 2 Weight Weight: 77.678 kg Body Mass Index (BMI) 33.4 Physical Exam Const alert General Appearance: cooperative HEENT normocephalic Eyes PERRL and EOMs intact bilaterally Neck supple, no JVD and no carotid bruits Resp normal respiratory effort, normal air movement and clear to auscultation bilaterally Cardio regular rate and regular rhythm GI normal to inspection, nondistended, normoactive bowel sounds, non-tender and non-distended Extremity normal capillary refill Extremity Narrative: Bilateral lower extremity ELLA hose, left knee dressed. General Extremity: Negative for edema Skin no rashes or lesions noted General Skin Exam: no breakdown Psych affect normal Appearance: appropriate Assessment & Plan Assessment/Plan (1) Debility: (2) Failed total left knee replacement: QUALIFIERS: Encounter type: sequela Qualified Code(s): T84.093S - 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 (3) Chronic hypoxic respiratory failure: (4) Postoperative anemia: (5) Pulmonary embolism: QUALIFIERS: Acute cor pulmonale presence: without acute cor pulmonale Chronicity: acute Pulmonary embolism type: saddle Qualified Code(s): I26.92 - Saddle embolus of pulmonary artery without acute cor pulmonale (6) Pulmonary fibrosis: PLAN: Plan 70 year old female with below past medical history 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 Diaz, admitted to TCU with debility, here for rehabilitation, strengthening, prior to discharge home with spouse. * Debility - PT/OT. * Pain - Tylenol 1000mg q8, Oxycodone 5mg to 10mg q4 prn. * Bowel - senna/colace 2 tablets bid, Magnesium citrate 300mL daily prn. * Adult immunization - Administer pneumonia vaccine, covid vaccine, flu vaccine as appropriate * DVT prophylaxis - Eliquis. * Chronic hypoxia - Oxygen 2 liters per nasal cannula prn. * Saddle embolism/right lower dvt/hypercoagulable state - Eliquis 5mg bid. * Iron deficiency anemia - Ferrous sulfate 325mg bid, Vitamin C 500mg daily, Folic acid 1mg daily. * Muscle spasm - Baclofen 10mg qhs * Vitamin D deficiency - D3 125mcg daily. * Infection prophylaxis - Doxycycline 100mg bid thru 05/15/2025. * Nutrition - Ensure Plus 120mL po tidcm. * GERD - Famotidine 20mg daily. * Nausea - Promethazine 12.5mg q6 prn.
[2025-05-14] MEDS: oxyCODONE 5 MG Tablet PO (20:36)
[2025-05-14] MEDS: Baclofen 10 MG Tablet PO (21:08)
[2025-05-14] MEDS: Doxycycline 100 MG CAPSULE PO (21:09)
[2025-05-14] MEDS: Acetaminophen 500 MG Tablet 1000 MG PO (21:09)
[2025-05-14] MEDS: APIXABAN 5 MG TABLET PO (21:10)
[2025-05-14] MEDS: Senna/Docusate Sodium 1 Tablet 2 TABLET PO (21:10)
[2025-05-15] MEDS: oxyCODONE 5 MG Tablet PO ×6 (01:58→22:43)
[2025-05-15 05:46] LABS: Absolute Lymphocyte Count 1.22 X10^3/uL (0.83-4.51); Absolute Neutrophil Count 4.7 X10^3/uL (2.0-7.7); Basophil# 0.05 X10^3/uL; Basophil% 0.7 % (0-1); Eosinophils% 5.5 % (0-5); Hematocrit 28.5 % (37-47); Hemoglobin 9.3 g/dL (12.0-15.0); Lymphocyte # 1.22 X10^3/ul (0.83-4.51); Lymphocyte % 16.9 % (19-41); Mean Corp Hgb Conc 32.6 g/dL (32-36); Mean Corpuscular Hgb 28.7 pg (27.0-32.0); Monocyte# 0.84 X10^3/uL; Monocyte% 11.6 % (0-10); NRBC Flagged by Analyzer 0 % (0-5); Neutrophil # 4.69 X10^3/uL (2.7-7.7); Neutrophil % 64.9 % (47-70); Platelet Count 255 K/mm3 (150-450); RBC Distribution Width CV 14.4 % (11.6-14.6); RBC Distribution Width SD 45.7 fl (35.1-43.9); Red Blood Count 3.24 M/mm3 (4.2-5.4); White Blood Count 7.2 K/mm3 (4.4-11.0)
[2025-05-15 06:14] LABS: Anion Gap 10 (5-15); BUN 14 mg/dL (4-19); BUN/Creat Ratio 24.8 RATIO (10-20); Calcium,Total 9.3 mg/dL (7.6-11.0); Carbon Dioxide 26.2 mmol/L (21.0-32.0); Chloride 103 mmol/L (98-108); Creatinine, Serum 0.58 mg/dL (0.70-1.20); EST Glomerular Filtration Rate 96 (>60); Estimated Creatinine Clearance 58.57 ml/min (50-250); Glucose 104 mg/dL (70-99); Potassium 4.4 mmol/L (3.3-5.1); Sodium Level 139 mmol/L (133-145)
[2025-05-15 06:16] VITALS: BP 106/50; PULSE 61; RESP 18; TEMP 36.5; O2SAT 98
[2025-05-15] MEDS: Acetaminophen 500 MG Tablet 1000 MG PO ×3 (06:19→21:28)
[2025-05-15 07:00] VITALS: O2SAT 99
[2025-05-15] MEDS: Cholecalciferol (Vit D3) 125 MCG CAPSULE (5,000 UNITS) PO (09:35)
[2025-05-15] MEDS: Senna/Docusate Sodium 1 Tablet 2 TABLET PO ×2 (09:35→21:30)
[2025-05-15] MEDS: Doxycycline 100 MG CAPSULE PO ×2 (09:35→21:29)
[2025-05-15] MEDS: APIXABAN 5 MG TABLET PO ×2 (09:35→21:29)
[2025-05-15] MEDS: Ascorbic Acid 500 MG Tablet PO (09:35)
[2025-05-15] MEDS: Famotidine 20 MG Tablet PO (09:35)
[2025-05-15] MEDS: Folic Acid 1 MG Tablet PO (09:35)
[2025-05-15] MEDS: Ferrous Sulfate 325 MG Tablet PO ×2 (09:36→18:34)
[2025-05-15] MEDS: Ensure Plus High Protein 120 ML LIQUID PO ×3 (09:37→18:32)
[2025-05-15 13:03] VITALS: BP 96/47; PULSE 83; RESP 16; TEMP 36.8; O2SAT 100
[2025-05-15] MEDS: Tuberculin,Purif.prot.deriv. 50 TU/ML Vial 0.1 ML ID (13:27)
[2025-05-15 13:49] VITALS: BMI 33.5
--- NOTE | 2025-05-15 15:38 | PHA.CONS_ITS ---
Documented by User: Anum Cody 05/15/25 15:53 TCU RX Drug Regimen Review Subjective/Objective Subjective/Objective Subjective: TCU Admission. 70 YOF hospitalized for failed left total knee replacement, underwent revision left total knee replacement, entire femoral com ponent 05/10/[address] Diaz. Admitted to TCU with debility for strengthening and rehabilitation. Objective: Allergies No Known Allergies Allergy (Verified 05/10/25 11:25) Current Medications Generic Name Dose Route Start Last Admin Trade Name Darlene PRN Reason Stop Dose Admin Acetaminophen 1,000 mg 05/14/25 22:00 05/15/25 14:42 Acetaminophen 500 Mg Tablet PO 1,000 mg Q8 GABBI Administration Apixaban 5 mg 05/14/25 22:00 05/15/25 09:35 Apixaban 5 Mg Tablet PO 5 mg BID GABBI Administration Ascorbic Acid 500 mg 05/15/25 10:00 05/15/25 09:35 Ascorbic Acid 500 Mg Tablet PO 500 mg DAILY GABBI Administration Baclofen 10 mg 05/14/25 22:00 05/14/25 21:08 Baclofen 10 Mg Tablet PO 10 mg QHS GABBI Administration Cholecalciferol 125 mcg 05/15/25 10:00 05/15/25 09:35 Cholecalciferol (Vit D3) 125 Mcg Capsule (5,000 Units) PO 125 mcg DAILY GABBI Administration Doxycycline Monohydrate 100 mg 05/14/25 22:00 05/15/25 09:35 Doxycycline 100 Mg Capsule PO 05/25/25 22:01 100 mg BID GABBI Administration Famotidine 20 mg 05/15/25 10:00 05/15/25 09:35 Famotidine 20 Mg Tablet PO 20 mg DAILY GABBI Administration Ferrous Sulfate 325 mg 05/14/25 17:00 05/15/25 09:36 Ferrous Sulfate 325 Mg Tablet PO 325 mg 1200,1700 GABBI Administration Folic Acid 1 mg 05/15/25 08:00 05/15/25 09:35 Folic Acid 1 Mg Tablet PO 1 mg BREAKFAST GABBI Administration Magnesium Citrate 300 ml 05/14/25 19:20 Magnesium Citrate 300 Ml PO DAILY PRN CONSTIPATION Nutritional Formula (Lactose Free) 120 ml 05/15/25 07:45 05/15/25 13:26 Ensure Plus High Protein 120 Ml Liquid PO 120 ml TIDCM GABBI Administration Oxycodone HCl 5 - 10 mg 05/14/25 16:00 05/15/25 14:41 Oxycodone 5 Mg Tablet PO 5 mg Q4H PRN PRN Administration Pain Score 4-10 Promethazine HCl 12.5 mg 05/14/25 16:00 Promethazine 25 Mg Tablet PO Q6H PRN PRN Nausea/Vomiting Senna/Docusate Sodium 2 tablet 05/14/25 22:00 05/15/25 09:35 Senna/Docusate Sodium 1 Tablet PO 2 tablet BID GABBI Administration Sodium Chloride 10 - 40 ml 05/14/25 15:33 05/14/25 16:42 0.9% Saline Lock 10 Ml Syringe IV 10 ml UD PRN Administration SALINE FLUSH Tuberculin PPD 0.1 ml 05/22/25 10:00 Tuberculin,Purif.Prot.Deriv. 50 Tu/Ml Vial ID 05/22/25 10:01 X1 ONE Problem List Postoperative anemia (Acute) Chronic hypoxic respiratory failure (Chronic) Pulmonary embolism (Acute) Failed total left knee replacement (Acute) Pulmonary fibrosis (Suspected) Debility (Acute) Vital Signs Temp Pulse Resp BP Pulse Ox O2 Del Method O2 Flow Rate 98.2 F 83 16 96/47 L 100 Nasal Cannula 2 05/15/25 13:03 05/15/25 13:03 05/15/25 13:03 05/15/25 13:03 05/15/25 13:03 05/15/25 13:03 05/15/25 13:21 Oxygen Flow Rate (L/min) 2 Oxygen Delivery Method Nasal Cannula Weight: 77.791 kg Body Mass Index (BMI) 33.5 Sodium 139 mmol/L (133-145) 05/15/25 05:11 Potassium 4.4 mmol/L (3.3-5.1) 05/15/25 05:11 Chloride 103 mmol/L (98-108) 05/15/25 05:11 Carbon Dioxide 26.2 mmol/L (21.0-32.0) 05/15/25 05:11 Anion Gap 10 (5-15) 05/15/25 05:11 BUN 14 mg/dL (4-19) 05/15/25 05:11 Creatinine 0.58 mg/dL (0.70-1.20) L 05/15/25 05:11 Est GFR (MDRD) Non-Af 96 (>60) 05/15/25 05:11 BUN/Creatinine Ratio 24.8 RATIO (10-20) H 05/15/25 05:11 Glucose 104 mg/dL (70-99) H 05/15/25 05:11 Assessment/Plan: 1. Pain: acetaminophen 1000mg PO Q8 and oxycodone 5-10mg PO Q4H PRN pain 4-10. Resident has had 5 doses of oxycodone for pain scores of 6-8 in the knee. Please continue to monitor for increased pain, PRN usage, constipation, respiratory depression and falls (BEERs). 2. Bowel: senna/docusate 2T PO BID and magnesium citrate 300mL PO daily PRN constipation. No PRN doses needed. Please continue to monitor for constipation and PRN usage. Last documented bowel movement was 05/14/25. 3. Saddle embolism/right lower DVT/hypercoagulable state: apixaban 5mg PO BID. Please continue to monitor for S/S of bleeding/VTE, hemoglobin (last 9.3g/dL). 4. Infection prophylaxis: doxycycline 100mg PO BID thru 05/25/25. Please continue to monitor for S/S of infection, upset stomach and diarrhea. 5. Iron deficiency anemia: ferrous sulfate 325mg PO BID, ascorbic acid 500mg PO daily and folic acid 1mg PO daily. Please continue to monitor hemoglobin (last 9.3g/dL), constipation, dark stools. 6. Muscle spasms: baclofen 10mg PO QHS. Please continue to monitor for muscle spasms, confusion, drowsiness and dizziness. 7. GERD: famotidine 20mg PO daily. Please continue to monitor for S/S of GERD and renal function. 8. Nausea: promethazine 12.5mg PO Q6H PRN nausea/vomiting. Resident has not used any doses. Please continue to monitor for nausea and PRN usage. 9. Vitamin D deficiency: cholecalciferol 125mcg PO daily. Please continue to monitor vitamin D levels (last 02/12/25). Assessment/Plan for indications treated with psychotropic medications: Resident is not prescribed scheduled or prn psychotropic medications at the time of this drug regimen review. Medical chart and medication regimen reviewed. The following medication irregularities or issues were identified: None Date Date of Note: 05/15/25 Documented by User: Dr. Scott Mcdowell MD 05/15/25 17:25 TCU RX Drug Regimen Review Provider Comments Provider responsibility Provider Comments to Recommendations by Pharmacy Agree
--- NOTE | 2025-05-15 16:44 | CASEMGMT ---
Social Work SW met with pt to complete initial assessment. Pt confirmed code status as full code. SW educated pt to [facility] Medicare benefit and that NRD is 18 and that continued stay is not guaranteed. Pt plans to return home with her spouse at time of dc. NIK will follow for DC planning. ALEKS Bernabe
[2025-05-15] MEDS: Baclofen 10 MG Tablet PO (21:29)
[2025-05-15 21:30] VITALS: PULSE 86; RESP 16; O2SAT 95
[2025-05-16] MEDS: oxyCODONE 5 MG Tablet PO ×5 (03:18→20:07)
[2025-05-16] MEDS: Acetaminophen 500 MG Tablet 1000 MG PO ×3 (05:59→20:09)
[2025-05-16] MEDS: Folic Acid 1 MG Tablet PO (08:26)
[2025-05-16] MEDS: Doxycycline 100 MG CAPSULE PO ×2 (08:26→20:08)
[2025-05-16] MEDS: APIXABAN 5 MG TABLET PO ×2 (08:26→20:08)
[2025-05-16] MEDS: Cholecalciferol (Vit D3) 125 MCG CAPSULE (5,000 UNITS) PO (08:27)
[2025-05-16] MEDS: Ferrous Sulfate 325 MG Tablet PO ×2 (08:27→17:11)
[2025-05-16] MEDS: Ascorbic Acid 500 MG Tablet PO (08:27)
[2025-05-16] MEDS: Famotidine 20 MG Tablet PO (08:27)
[2025-05-16] MEDS: Senna/Docusate Sodium 1 Tablet 2 TABLET PO ×2 (08:27→20:08)
[2025-05-16 10:00] VITALS: PULSE 91; RESP 16; O2SAT 94
[2025-05-16 10:48] VITALS: O2SAT 96
--- NOTE | 2025-05-16 11:55 | NURSING ---
Toppiece Cutter Note; Activity Asset: Jack Black is independent in her choice of daily activities. 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 She will work from her room and prefers to do in room activities at this time. She has all her electronics, books, tv and will read when not resting or in therapy. She welcomes visits from the therapy dog when available. Staff will remind her of daily activities and respect her right to say no.
[2025-05-16 16:00] VITALS: BP 116/56; PULSE 85; RESP 18; TEMP 36.8; O2SAT 94
[2025-05-16] MEDS: Baclofen 10 MG Tablet PO (20:09)
[2025-05-17] MEDS: oxyCODONE 5 MG Tablet PO ×6 (00:49→22:13)
[2025-05-17] MEDS: Acetaminophen 500 MG Tablet 1000 MG PO ×3 (05:03→22:08)
[2025-05-17 08:40] LABS: Hematocrit 31.2 % (37-47); Hemoglobin 10.3 g/dL (12.0-15.0)
[2025-05-17 08:48] VITALS: BP 122/69; PULSE 83; RESP 16; TEMP 36.3; O2SAT 100
[2025-05-17] MEDS: Cholecalciferol (Vit D3) 125 MCG CAPSULE (5,000 UNITS) PO (08:48)
[2025-05-17] MEDS: APIXABAN 5 MG TABLET PO ×2 (08:48→22:09)
[2025-05-17] MEDS: Famotidine 20 MG Tablet PO (08:48)
[2025-05-17] MEDS: Ascorbic Acid 500 MG Tablet PO (08:48)
[2025-05-17] MEDS: Senna/Docusate Sodium 1 Tablet 2 TABLET PO ×2 (08:48→22:08)
[2025-05-17] MEDS: Folic Acid 1 MG Tablet PO (08:48)
[2025-05-17] MEDS: Doxycycline 100 MG CAPSULE PO ×2 (10:25→22:09)
[2025-05-17] MEDS: Ferrous Sulfate 325 MG Tablet PO ×2 (13:09→16:17)
[2025-05-17] MEDS: Baclofen 10 MG Tablet PO (22:09)
[2025-05-18] MEDS: oxyCODONE 5 MG Tablet PO ×5 (03:15→20:16)
[2025-05-18] MEDS: Acetaminophen 500 MG Tablet 1000 MG PO ×3 (05:39→20:23)
[2025-05-18] MEDS: Ascorbic Acid 500 MG Tablet PO (07:46)
[2025-05-18] MEDS: Senna/Docusate Sodium 1 Tablet 2 TABLET PO ×2 (07:46→20:23)
[2025-05-18] MEDS: Famotidine 20 MG Tablet PO (07:46)
[2025-05-18] MEDS: Doxycycline 100 MG CAPSULE PO ×2 (07:47→20:24)
[2025-05-18] MEDS: Cholecalciferol (Vit D3) 125 MCG CAPSULE (5,000 UNITS) PO (07:47)
[2025-05-18] MEDS: Folic Acid 1 MG Tablet PO (07:47)
[2025-05-18] MEDS: APIXABAN 5 MG TABLET PO ×2 (07:47→20:24)
--- NOTE | 2025-05-18 10:52 | CASEMGMT ---
BIMS () and PHQ2(0) interviews completed on this date for MDS assessment. ALEKS Bernabe
--- NOTE | 2025-05-18 10:53 | CASEMGMT ---
BIMS () and PHQ2(1) interviews completed on this date for MDS assessment. ALEKS Bernabe
[2025-05-18] MEDS: Ferrous Sulfate 325 MG Tablet PO ×2 (12:02→16:19)
[2025-05-18 14:46] VITALS: BP 115/58; PULSE 61; RESP 16; TEMP 36.8; O2SAT 100
--- NOTE | 2025-05-18 15:15 | CHAPLAIN ---
Type of Pastoral Visit ___ Initial Visit ___ Follow-up Visit ___ On-call Visit ___ General Patient Visit ___ Spiritual Assessment ___ Family Conference ___ Bereavement ___ Rapid Response ___ Code Blue ___ Other (describe below) Pastoral Care Referral From ___ Patient ___ Family ___ Nurse ___ Physician ___ Electrical Test Technician ___ Arts Administrator Or Manager ___ Other (describe below) Sacrament/Intervention ___ Active listening ___ Anointing ___ Zoroastrian ___ Bereavement ___ Communion ___ Kaylan exploration ___ ___ Life review ___ Prayer ___ Reconciliation ___ Sacrament of Sick ___ Supportive presence ___ Wedding ___ Other (describe below) Pastoral Comments patient is on the phone and declines a visit today, pt states that she is doing better and is feeling okay for now
[2025-05-18] MEDS: Baclofen 10 MG Tablet PO (20:23)
[2025-05-19] MEDS: oxyCODONE 5 MG Tablet PO ×6 (01:06→23:23)
[2025-05-19] MEDS: Acetaminophen 500 MG Tablet 1000 MG PO ×3 (05:02→21:14)
[2025-05-19] MEDS: Doxycycline 100 MG CAPSULE PO ×2 (09:13→21:12)
[2025-05-19] MEDS: APIXABAN 5 MG TABLET PO ×2 (09:14→21:12)
[2025-05-19] MEDS: Senna/Docusate Sodium 1 Tablet 2 TABLET PO ×2 (09:14→21:13)
[2025-05-19] MEDS: Folic Acid 1 MG Tablet PO (09:14)
[2025-05-19] MEDS: Cholecalciferol (Vit D3) 125 MCG CAPSULE (5,000 UNITS) PO (09:15)
[2025-05-19] MEDS: Ascorbic Acid 500 MG Tablet PO (09:16)
[2025-05-19] MEDS: Famotidine 20 MG Tablet PO (09:16)
[2025-05-19] MEDS: Ferrous Sulfate 325 MG Tablet PO ×2 (13:03→16:25)
[2025-05-19 16:00] VITALS: BP 114/59; PULSE 89; RESP 18; TEMP 36.4; O2SAT 95
[2025-05-19] MEDS: Baclofen 10 MG Tablet PO (21:13)
[2025-05-20] MEDS: oxyCODONE 5 MG Tablet PO ×4 (04:38→18:08)
[2025-05-20] MEDS: Acetaminophen 500 MG Tablet 1000 MG PO ×3 (04:38→21:37)
[2025-05-20 08:44] VITALS: BP 103/60; PULSE 91; RESP 16; TEMP 36.3; O2SAT 95
[2025-05-20] MEDS: Famotidine 20 MG Tablet PO (08:56)
[2025-05-20] MEDS: APIXABAN 5 MG TABLET PO ×2 (08:56→21:37)
[2025-05-20] MEDS: Folic Acid 1 MG Tablet PO (08:56)
[2025-05-20] MEDS: Doxycycline 100 MG CAPSULE PO ×2 (08:56→21:37)
[2025-05-20] MEDS: Senna/Docusate Sodium 1 Tablet 2 TABLET PO ×2 (08:56→21:37)
[2025-05-20] MEDS: Ascorbic Acid 500 MG Tablet PO (08:57)
[2025-05-20] MEDS: Cholecalciferol (Vit D3) 125 MCG CAPSULE (5,000 UNITS) PO (11:04)
[2025-05-20] MEDS: Ferrous Sulfate 325 MG Tablet PO ×2 (11:48→18:08)
--- NOTE | 2025-05-20 15:34 | NURSING ---
Chart shows no BM since 05/17, resident reported that she had a bowel movement last night after dinner and her assisted her.
--- NOTE | 2025-05-20 16:55 | NURSING ---
c/o new onset diarrhea around dinner the last couple nights with cramping, hypoactive BS noted, Dr. Mcdowell updated NMigue [place]
--- NOTE | 2025-05-20 17:20 | RAD_ITS ---
PROCEDURE: ABDOMEN SINGLE VIEW 05/20/2025 REASON FOR EXAM: HYPOACTIVE BS AND NEW ONSET DIARRHEA/CRAMPING TECHNIQUE: ABDOMEN SINGLE VIEW COMPARISON: None FINDINGS: No bowel obstruction or ileus. Moderate stool burden which may reflect constipation. No large pneumoperitoneum. No suspicious soft tissue calcifications. Moderate multilevel degenerative changes of the lumbar spine and bilateral hips. RAD/Abdomen Single View IMPRESSION: No bowel obstruction or ileus. Moderate stool burden which may reflect constipa tion. Reading Location: [id number]
[2025-05-20] MEDS: Magnesium Citrate 300 ML PO (21:30)
[2025-05-20] MEDS: Baclofen 10 MG Tablet PO (21:37)
[2025-05-21] MEDS: oxyCODONE 5 MG Tablet PO ×4 (00:16→22:10)
[2025-05-21] MEDS: Acetaminophen 500 MG Tablet 1000 MG PO ×3 (06:09→22:11)
--- NOTE | 2025-05-21 08:38 | NURSING ---
Taker Off Braker Machine Note; MDS for 05/21/2025 Complete
[2025-05-21] MEDS: Ascorbic Acid 500 MG Tablet PO (08:57)
[2025-05-21] MEDS: APIXABAN 5 MG TABLET PO ×2 (08:57→22:10)
[2025-05-21] MEDS: Folic Acid 1 MG Tablet PO (08:57)
[2025-05-21] MEDS: Doxycycline 100 MG CAPSULE PO ×2 (08:57→22:10)
[2025-05-21] MEDS: Famotidine 20 MG Tablet PO (08:57)
[2025-05-21 10:00] VITALS: BP 107/59; PULSE 75; RESP 16; TEMP 36.7; O2SAT 97
--- NOTE | 2025-05-21 11:36 | NURSING ---
Offered covid vaccine, VIS provided. Resident declines.
[2025-05-21] MEDS: Cholecalciferol (Vit D3) 125 MCG CAPSULE (5,000 UNITS) PO (13:45)
[2025-05-21] MEDS: Ferrous Sulfate 325 MG Tablet PO ×2 (13:46→17:19)
--- NOTE | 2025-05-21 15:37 | CHAPLAIN ---
Type of Pastoral Visit ___ Initial Visit _x__ Follow-up Visit ___ On-call Visit ___ General Patient Visit ___ Spiritual Assessment ___ Family Conference ___ Bereavement ___ Rapid Response ___ Code Blue ___ Other (describe below) Pastoral Care Referral From _x__ Patient ___ Family ___ Nurse ___ Physician ___ Semiconductor Wafer Inspector ___ Business Team Leader ___ Other (describe below) Sacrament/Intervention __x_ Active listening ___ Anointing ___ Cheondoism ___ Bereavement ___ Communion ___ Kaylan exploration ___ _x__ Life review _x__ Prayer ___ Reconciliation ___ Sacrament of Sick ___ Supportive presence ___ Wedding ___ Other (describe below) Pastoral Comments patient is sitting up in chair and is able to rest and to hear from loved ones'; pt is optimistic about her future; pt has goals to what to do;pt is looking foward to a new great grandchild coming; pt welcomes prayer; pt expects to come any minute for vehicle in-and-out practice
[2025-05-21] MEDS: Baclofen 10 MG Tablet PO (22:12)
[2025-05-22] MEDS: oxyCODONE 5 MG Tablet PO ×4 (05:09→19:29)
[2025-05-22] MEDS: Acetaminophen 500 MG Tablet 1000 MG PO ×3 (05:10→21:15)
[2025-05-22 05:57] LABS: Absolute Lymphocyte Count 1.34 X10^3/uL (0.83-4.51); Absolute Neutrophil Count 4.6 X10^3/uL (2.0-7.7); Basophil# 0.07 X10^3/uL; Eosinophil# 0.32 X10^3/uL; Eosinophils% 4.5 % (0-5); Hematocrit 31.1 % (37-47); Hemoglobin 10.1 g/dL (12.0-15.0); Lymphocyte # 1.34 X10^3/ul (0.83-4.51); Mean Corp Hgb Conc 32.5 g/dL (32-36); Mean Corpuscular Hgb 28.5 pg (27.0-32.0); Mean Corpuscular Volume 87.6 fL (81-99); Mean Platelet Vol. 9.3 fl (6.2-12.0); Monocyte% 9.9 % (0-10); NRBC Flagged by Analyzer 0 % (0-5); Neutrophil # 4.62 X10^3/uL (2.7-7.7); Neutrophil % 65.3 % (47-70); Platelet Count 429 K/mm3 (150-450); RBC Distribution Width CV 14.6 % (11.6-14.6); RBC Distribution Width SD 46.5 fl (35.1-43.9); Red Blood Count 3.55 M/mm3 (4.2-5.4); White Blood Count 7.1 K/mm3 (4.4-11.0)
[2025-05-22 06:33] LABS: Anion Gap 8 (5-15); BUN 10 mg/dL (4-19); BUN/Creat Ratio 17.9 RATIO (10-20); Calcium,Total 9.7 mg/dL (7.6-11.0); Carbon Dioxide 28.1 mmol/L (21.0-32.0); Chloride 103 mmol/L (98-108); Creatinine, Serum 0.57 mg/dL (0.70-1.20); EST Glomerular Filtration Rate 97 (>60); Estimated Creatinine Clearance 58.62 ml/min (50-250); Glucose 97 mg/dL (70-99); Potassium 4.3 mmol/L (3.3-5.1); Sodium Level 140 mmol/L (133-145)
[2025-05-22 08:08] VITALS: BP 106/59; PULSE 89; RESP 16; TEMP 36.4; O2SAT 97
[2025-05-22] MEDS: Folic Acid 1 MG Tablet PO (08:11)
[2025-05-22] MEDS: APIXABAN 5 MG TABLET PO ×2 (08:12→21:14)
[2025-05-22] MEDS: Famotidine 20 MG Tablet PO (08:12)
[2025-05-22] MEDS: Cholecalciferol (Vit D3) 125 MCG CAPSULE (5,000 UNITS) PO (08:12)
[2025-05-22] MEDS: Ascorbic Acid 500 MG Tablet PO (08:12)
[2025-05-22] MEDS: Doxycycline 100 MG CAPSULE PO ×2 (08:12→21:13)
[2025-05-22] MEDS: Senna/Docusate Sodium 1 Tablet 2 TABLET PO ×2 (08:12→21:15)
[2025-05-22] MEDS: Tuberculin,Purif.prot.deriv. 50 TU/ML Vial 0.1 ML ID (09:31)
[2025-05-22 10:00] VITALS: PULSE 90; RESP 18; O2SAT 98
[2025-05-22] MEDS: Ferrous Sulfate 325 MG Tablet PO ×2 (11:23→16:54)
[2025-05-22 15:00] VITALS: BMI 32.9
[2025-05-22] MEDS: Baclofen 10 MG Tablet PO (21:15)
[2025-05-23] MEDS: oxyCODONE 5 MG Tablet PO ×5 (00:41→23:07)
[2025-05-23] MEDS: Acetaminophen 500 MG Tablet 1000 MG PO ×3 (06:14→21:22)
[2025-05-23 07:07] VITALS: PULSE 88; RESP 16; O2SAT 99
[2025-05-23 09:14] VITALS: BP 104/58; PULSE 86; RESP 16; TEMP 36.3; O2SAT 96
[2025-05-23] MEDS: Doxycycline 100 MG CAPSULE PO ×2 (09:18→21:20)
[2025-05-23] MEDS: Folic Acid 1 MG Tablet PO (09:18)
[2025-05-23] MEDS: Ascorbic Acid 500 MG Tablet PO (09:19)
[2025-05-23] MEDS: APIXABAN 5 MG TABLET PO ×2 (09:19→21:21)
[2025-05-23] MEDS: Famotidine 20 MG Tablet PO (09:19)
[2025-05-23] MEDS: Cholecalciferol (Vit D3) 125 MCG CAPSULE (5,000 UNITS) PO (09:19)
[2025-05-23] MEDS: Senna/Docusate Sodium 1 Tablet 2 TABLET PO ×2 (09:19→21:21)
[2025-05-23] MEDS: Ferrous Sulfate 325 MG Tablet PO ×2 (12:00→17:08)
--- NOTE | 2025-05-23 14:33 | CASEMGMT ---
Social Work IDT met with patient and for care plan meeting. Discussed patient's progress in PT/OT/SN/RDN. Educated to [facility] insurance with NRD 05/23 and continued stay is not anticipated. Provided pt/family with written communication of insurance process and copay coverage during stay. Pt aware and prepared for DC. Pt has appt with this afternoon. SW confirmed DC needs. Pt prefers to use [facility] again, for PT/OT/SN and denied DME needs. SW to coordinate once DC date is known. Omaira Hernandez WELLNESS COORDINATOR DIRECTOR OF INFORMATICS
--- NOTE | 2025-05-23 14:34 | NURSING ---
off unit to ortho appt via private vehicle with & oxygen maintained
--- NOTE | 2025-05-23 16:25 | CASEMGMT ---
Addendum entered by Omaira Hernandez 05/23/25 16:59: Pt returned from appt. SW spoke with pt and at bedside to notify of DC date. provided NOMNC and offered appeal rights. Pt denied appeal and agreeable to DC as planned with [facility]. Original Note: Social Work Insurance issued LCD 05/25, DC 05/26 Pt is off unit for an appt, though, this worker spoke with pt and at POC meeting earlier and confirmed DC plans. SW to speak with pt tomorrow to finalize. Nursing to issue NOMNC once pt returns to unit. Pt has denied her appeal rights. SW phoned referral to [facility] for PT/OT/SN. Plan: DC home with 05/26, [facility] PT/OT/SN Omaira Hernandez BOOK AGENT MIXER CRANE OPERATOR
--- NOTE | 2025-05-23 16:46 | NURSING ---
pt returned from appt at this time, ortho to fax report/orders
--- NOTE | 2025-05-23 20:55 | DS.PCM_ITS ---
Providers Date of Admission: 05/14/25 Primary Care Physician: Dr. 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 Code(s): T84.093A - Other 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, initial encounter Qualifiers: Encounter type: sequela Qualified Code(s): T84.093S - 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 (3) Chronic hypoxic respiratory failure: Status: Chronic Code(s): J96.11 - Chronic respiratory failure with hypoxia (4) Postoperative anemia: Status: Acute Code(s): D64.9 - Anemia, unspecified (5) Pulmonary embolism: Status: Acute Code(s): I26.99 - Other pulmonary embolism without acute cor pulmonale Qualifiers: Pulmonary embolism type: saddle Chronicity: acute Acute cor pulmonale presence: without acute cor pulmonale Qualified Code(s): I26.92 - Saddle embolus of pulmonary artery without acute cor pulmonale (6) Pulmonary fibrosis: Status: Suspected Code(s): J84.10 - Pulmonary fibrosis, unspecified Plan 70 year old female with below past medical history 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 Diaz, admitted to TCU with debility, here for rehabilitation, strengthening, prior to discharge home with spouse. * Debility - PT/OT. * Pain - Tylenol 1000mg q8, Oxycodone 5mg to 10mg q4 prn. * Bowel - senna/colace 2 tablets bid, Magnesium citrate 300mL daily prn. * Adult immunization - Administer pneumonia vaccine, covid vaccine, flu vaccine as appropriate * DVT prophylaxis - Eliquis. * Chronic hypoxia - Oxygen 2 liters per nasal cannula prn. * Saddle embolism/right lower dvt/hypercoagulable state - Eliquis 5mg bid. * Iron deficiency anemia - Ferrous sulfate 325mg bid, Vitamin C 500mg daily, Folic acid 1mg daily. * Muscle spasm - Baclofen 10mg qhs * Vitamin D deficiency - D3 125mcg daily. * Infection prophylaxis - Doxycycline 100mg bid thru 05/15/2025. * Nutrition - Ensure Plus 120mL po tidcm. * GERD - Famotidine 20mg daily. * Nausea - Promethazine 12.5mg q6 prn. Medications at Discharge Home Medications apixaban 5 mg tablet (Eliquis) 5 mg PO BID BLOOD THINNER 30 days #60 tabs 02/06/25 ascorbic acid (vitamin C) 100 mg tablet (Vitamin C) 600 mg PO DAILY SUPPLEMENT 04/16/25 baclofen 10 mg tablet 10 mg PO QHS Muscle Spasm 04/16/25 vitamin D3 125 mcg (5,000 unit)-vitamin K2 100 mcg capsule 1 cap PO DAILY SUPPLEMENT 04/16/25 acetaminophen 500 mg tablet 1,000 mg (2 x 500 mg) PO Q8 Pain #0 tabs 05/14/25 famotidine 20 mg tablet 20 mg PO DAILY 30 days #30 tabs 05/23/25 ferrous sulfate 325 mg (65 mg iron) tablet (FeroSul) 325 mg PO 1200,1700 30 days #60 tabs 05/23/25 folic acid 1 mg tablet 1 mg PO BREAKFAST 30 days #30 tabs 05/23/25 oxycodone 5 mg tablet 5 - 10 mg (1 - 2 x 5 mg) PO Q4H PRN PRN Pain Score 4-10 7 days #42 tabs 05/23/25 sennosides 8.6 mg-docusate sodium 50 mg tablet (Stimulant Laxative Plus) 2 tab PO BID 30 days #120 tabs 05/23/25 Hospital Course Operations - (See below.) Procedures None Summary of Care Provided Minutes Spent on Discharge: 35 Hospital Course: 70 year old female with below past medical history 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 Diaz, admitted to TCU with debility, here for rehabilitation, strengthening, prior to discharge home with spouse. 05/16/2025 Doppler ultrasound left lower extremity negative for DVT. Discharge home with 05/26/2025, [facility] PT/OT/SN. Physical Exam Const alert General Appearance: cooperative HEENT normocephalic Eyes PERRL and EOMs intact bilaterally Neck supple, no JVD and no carotid bruits Resp normal respiratory effort, normal air movement and clear to auscultation bilaterally Cardio regular rate and regular rhythm GI normal to inspection, nondistended, normoactive bowel sounds, non-tender and non-distended Extremity normal capillary refill General Extremity: Negative for edema Skin no rashes or lesions noted General Skin Exam: no breakdown Psych affect normal Appearance: appropriate Weight / BMI Weight Weight: 76.022 kg Body Mass Index (BMI) 32.9 ABG / Lab / Microbiology Data 05/22/25 05:08 05/22/25 05:08 D/C Instructions Discharge Diet: No restrictions Discharge Activity: Return to Normal Activity, May Shower and Use Walker Weight Bearing Status: Weight bearing as tolerated Call your doctor if you observe: Fever of 101 or Higher, Inability to urinate, Inability to have a bowel movement, Shortness of breath, Dizziness, Fainting spells, Swelling in the ankles, Chest pain and Uncontrolled pain DC O2, CPAP, BIPAP Needs Home O2 Discharge instructions: Yes Type of respiratory needs?: Oxygen (2 liters) Oxygen frequency: Other Other oxygen liters per minute: 2 Other oxygen frequency: As needed with exertion. DC home with Oxygen: Yes Home O2 MD Review: I have reviewed the oxygen testing, and the patient qualifies for home oxygen equipment and portability. The patient is mobile in the home and the community. Additional Instructions: Discharge home with 05/26/2025, [facility] PT/OT/SN. Please Follow Up With: Kasey Nunez PA-C When: As scheduled. Meaningful Use Info Meaningful Use Meaningful Use Diagnoses (Choose all that apply): None applicable Ischemic Stroke Statin Dosing Therapy Reference: STATIN DOSE THERAPY REFERENCE: * Patients > 75 years receive moderate or high dose statin therapy. * Patients 75 years or YOUNGER should receive HIGH intensity statin dose unless contraindicated. You will be required to document reason for non-treatment if statin daily dose does not meet guidelines. HIGH DOSE STATIN THERAPY DAILY Atorvastatin > than or = to 40 mg Rosuvastatin > than or = to 20 mg Amlodipine + Atorvastatin > than or = to 2.5/40 mg Ezetimibe + Simvastatin 10/80 mg Simvastatin 80mg Discharge Plan Admission Admit Date/Time: 05/14/25 15:04 Primary Reason for Your Visit: Debility. Attending Provider: Scott Mcdowell Chi Primary Care Provider: Scott Mcdowell Chi Instructions Additional Instructions / Restrictions: Discharge home with 05/26/2025, [facility] PT/OT/SN. Discharge Orders/Prescriptions Prescriptions: New famotidine 20 mg Tablet 20 mg PO DAILY 30 Days Qty: 30 0RF ferrous sulfate [FeroSul] 325 mg (65 mg iron) Tablet 325 mg PO 1200,1700 30 Days Qty: 60 0RF sennosides-docusate sodium [Stimulant Laxative Plus] 8.6-50 mg Tablet 2 tab PO BID 30 Days Qty: 120 0RF folic acid 1 mg Tablet 1 mg PO BREAKFAST 30 Days Qty: 30 0RF oxycodone 5 mg Tablet 5 - 10 mg PO Q4H PRN PRN (Reason: Pain Score 4-10) 7 Days Qty: 42 0RF Continued Eliquis 5 mg Tablet 5 mg PO BID 30 Days Qty: 60 0RF vitamin D3-vitamin K2 125 mcg (5,000 unit)-100 mcg capsule 1 cap PO DAILY Vitamin C 100 mg tablet 600 mg PO DAILY baclofen 10 mg Tablet 10 mg PO QHS acetaminophen 500 mg Tablet 1,000 mg PO Q8 Qty: 0 0RF Discontinued doxycycline monohydrate 100 mg Capsule 100 mg PO BID Qty: 0 0RF Rx Instructions: administer for 14 days then discontinue Ensure Surgery 0.08-1.4 gram-kcal/mL Liquid 237 ml PO TIDCM Qty: 0 0RF famotidine 20 mg Tablet 20 mg PO DAILY Qty: 0 0RF oxycodone 5 mg Tablet 5 - 10 mg PO Q4H PRN PRN (Reason: Pain Score 4-10) 2 Days Qty: 10 0RF sennosides-docusate sodium [Stimulant Laxative Plus] 8.6-50 mg Tablet 2 tab PO BID Qty: 0 0RF promethazine 25 mg Tablet 12.5 mg PO Q6H PRN PRN (Reason: Nausea/Vomiting) Qty: 0 0RF ferrous sulfate [FeroSul] 325 mg (65 mg iron) Tablet 325 mg PO 1200,1700 Qty: 0 0RF folic acid 1 mg Tablet 1 mg PO BREAKFAST Qty: 0 0RF Referrals / Follow Up: Scott Mcdowell Chi, MD [Primary Care Provider] - Disposition Disposition (needs filled in before D/C Order can be placed): Home Health Service
[2025-05-23] MEDS: Baclofen 10 MG Tablet PO (21:21)
[2025-05-24] MEDS: oxyCODONE 5 MG Tablet PO ×4 (05:39→22:02)
[2025-05-24] MEDS: Acetaminophen 500 MG Tablet 1000 MG PO ×3 (05:39→21:59)
[2025-05-24 08:22] VITALS: BP 125/72; PULSE 94; RESP 16; TEMP 36.9; O2SAT 95
[2025-05-24] MEDS: Folic Acid 1 MG Tablet PO (08:24)
[2025-05-24] MEDS: APIXABAN 5 MG TABLET PO ×2 (08:24→21:57)
[2025-05-24] MEDS: Doxycycline 100 MG CAPSULE PO ×2 (08:24→21:57)
[2025-05-24] MEDS: Senna/Docusate Sodium 1 Tablet 2 TABLET PO ×2 (08:25→21:58)
[2025-05-24] MEDS: Cholecalciferol (Vit D3) 125 MCG CAPSULE (5,000 UNITS) PO (08:25)
[2025-05-24] MEDS: Famotidine 20 MG Tablet PO (08:25)
[2025-05-24] MEDS: Ascorbic Acid 500 MG Tablet PO (08:25)
[2025-05-24] MEDS: Ferrous Sulfate 325 MG Tablet PO ×2 (11:50→17:19)
--- NOTE | 2025-05-24 13:59 | MDS.RN ---
Information for the MDS was obtained from review of the clinical record, interview of resident, staff, and direct observation of resident?s care.
--- NOTE | 2025-05-24 15:31 | CASEMGMT ---
Social Work SW completed BIMS () and PHQ-2 () for MDS assessment. Omaira Hernandez ENVIRONMENTAL FIELD SERVICES TECHNICIAN ROTOR ASSEMBLER
[2025-05-24] MEDS: Baclofen 10 MG Tablet PO (21:58)
[2025-05-24 22:06] VITALS: PULSE 78; O2SAT 98
[2025-05-25] MEDS: Acetaminophen 500 MG Tablet 1000 MG PO ×3 (05:19→22:09)
[2025-05-25] MEDS: APIXABAN 5 MG TABLET PO ×2 (07:56→22:08)
[2025-05-25] MEDS: Folic Acid 1 MG Tablet PO (07:56)
[2025-05-25] MEDS: Doxycycline 100 MG CAPSULE PO ×2 (07:56→22:07)
[2025-05-25] MEDS: Cholecalciferol (Vit D3) 125 MCG CAPSULE (5,000 UNITS) PO (07:57)
[2025-05-25] MEDS: Ascorbic Acid 500 MG Tablet PO (07:57)
[2025-05-25] MEDS: Famotidine 20 MG Tablet PO (07:57)
[2025-05-25] MEDS: Ferrous Sulfate 325 MG Tablet PO ×2 (07:57→16:47)
[2025-05-25] MEDS: oxyCODONE 5 MG Tablet PO ×3 (07:57→22:10)
[2025-05-25] MEDS: Senna/Docusate Sodium 1 Tablet 2 TABLET PO ×2 (07:57→22:09)
[2025-05-25 08:47] VITALS: O2SAT 98
[2025-05-25 10:00] VITALS: PULSE 81; RESP 15; O2SAT 100
[2025-05-25 10:55] VITALS: BP 115/54; PULSE 94; RESP 18; TEMP 36.6; O2SAT 93
[2025-05-25] MEDS: Baclofen 10 MG Tablet PO (22:08)
[2025-05-26] MEDS: oxyCODONE 5 MG Tablet PO ×2 (03:30→09:43)
[2025-05-26] MEDS: Acetaminophen 500 MG Tablet 1000 MG PO (06:05)
[2025-05-26 07:24] VITALS: O2SAT 96
[2025-05-26 07:36] VITALS: PULSE 65; RESP 16; O2SAT 98
[2025-05-26 09:38] VITALS: BP 108/57; PULSE 83; RESP 16; TEMP 36.4; O2SAT 94
[2025-05-26] MEDS: Folic Acid 1 MG Tablet PO (09:42)
[2025-05-26] MEDS: APIXABAN 5 MG TABLET PO (09:42)
[2025-05-26] MEDS: Ascorbic Acid 500 MG Tablet PO (09:42)
[2025-05-26] MEDS: Senna/Docusate Sodium 1 Tablet 2 TABLET PO (09:42)
[2025-05-26] MEDS: Famotidine 20 MG Tablet PO (09:42)
[2025-05-26] MEDS: Cholecalciferol (Vit D3) 125 MCG CAPSULE (5,000 UNITS) PO (09:43)
[2025-05-26] MEDS: Ferrous Sulfate 325 MG Tablet PO (12:05)
== END 2025-05-26 12:00 | disposition home health service (06) | DRG 949 ==
PROVIDERS: Admitting Provider Family Medicine Geriatric Medicine; PCP Family Medicine Geriatric Medicine; Visit Provider Family Medicine Geriatric Medicine
DX: T84.093D Other 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, subsequent encounter (principal); I26.92 Saddle embolus of pulmonary artery without acute cor pulmonale; J96.11 Chronic respiratory failure with hypoxia; D68.59 Other primary thrombophilia; J84.10 Pulmonary fibrosis, unspecified; Z99.81 Dependence on supplemental oxygen; D50.9 Iron deficiency anemia, unspecified; E55.9 Vitamin D deficiency, unspecified; K21.9 Gastro-esophageal reflux disease without esophagitis; Z79.01 Long term (current) use of anticoagulants; Z96.652 Presence of left artificial knee joint; Z79.899 Other long term (current) drug therapy; Y79.2 Prosthetic and other implants, materials and accessory orthopedic devices associated with adverse incidents
CPT/HCPCS: 36415; 74018; 80048; 85014; 85018; 85025; 97110; 97116; 97162; 97166; 97530; 97535; 97802; A4216

== ENCOUNTER → 2025-07-21 | Outpatient (CLI) | payer MEDICARE, SELFPAY ==
--- OUTSIDE RECORDS SUMMARY | 2025-07-21 10:51 | XMS RPT_ITS | CCD ---
Author Organization [facility] Care Team Providers Care [employer] Name Role Phone Matthew Covarrubias Unavailable Unavailable Matthew Covarrubias Unavailable Unavailable Jameel GOLF CLUB MANAGER-SALVAGE DIVERLori Primary Care Provider Bria Gan MD Unavailable LORI DALE Attending Unavailable LORI DALE Primary Care Unavailable LORI DALE Attending Unavailable LORI DALE Primary Care Unavailable LORI DALE Primary Care Unavailable Jameel PROMOTIONAL 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, Lori Primary Care Provider Dr. Martha Long [...] Provider Dr. Charles Langley MD Other Provider [phone] Philly SARMIENTO, Dr. Licea Other Provider Adarsh SARMIENTO, Dr. Higuera Other Provider Nellie SARMIENTO, Dr. Granados Other Provider Oswaldo SARMIENTO, Dr. Wiley Other Provider [phone] Micah SARMIENTO, Dr. Bunn Other Provider [phone] Zach SARMIENTO, Dr. Oviedo Other Provider Janay SARMIENTO, Dr. Neville Other Provider Daphnie SARMIENTO, Dr. Duron Other Provider [facility] lonnie Pineda MD, Dr. Tijerina Other Provider [phone] Alli SARMIENTO, Dr. Minor Other Provider Fritz SARMIENTO, Dr. Whittington Other Provider [phone] Corona SARMIENTO, Dr. Miguel Other Provider [phone] Mica MARTELL, Dr. Starks Other Provider [phone] Megan SARMIENTO, Dr. Chan Other Provider [phone] Erika SARMIENTO, Dr. Reyes Other Provider [phone] Kerry MARTELL, Dr. Harry Other Provider Chas SARMIENTO, Dr. Turner Other Provider [phone] Kuldeep SARMIENTO, Dr. Regalado Other Provider Dr. Lori Matthews DO Other Provider Yuriy SARMIENTO, Dr. Fairchild Attending Provider Dr. Cuba Allred DO Attending Provider Dr. Lori Matthews DO Referring Provider Dr. Raymundo Bhardwaj DO Referring Provider Dr. Raymundo Petty MD Attending Provider Jeremias SARMIENTO, Dr. Scott Pabon Admit Provider Jeremias SARMIENTO, Dr. Scott Pabon Attending Provider Jeremias SARMIENTO, Dr. Scott Pabon Referring Provider Jameel PROMOTIONAL 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, Lori Referring Provider Fareed PROMOTIONAL 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, Cindy Attending Provider Jeremias SARMIENTO, Dr. Scott Pabon Primary Care Provider [phone] Fareed PROMOTIONAL 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, Cindy Referring Provider GREGORY SARMIENTO, FIGUEROA Attending Provider GREGORY SARMIENTO, FIGUEROA Referring Provider Jameel PROMOTIONAL 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, Lori Primary Care Provider Dr. Martha Long DO Emergency Provider Lashae MARTELL, Dr. Fonseca Admit Provider Dr. Raymundo Bhardwaj DO Other Provider Dr. Raymundo Petty MD Other Provider Byron MRATELL, Dr. Sandoval Attending Provider [phone] Lashae MARTELL, Dr. Fonseca Attending Provider Jose SARMIENTO, Dr. Fleimng Other Provider Cierra SARMIENTO, Dr. Peña Other [...] Provider Janay SARMIENTO, Dr. Neville Other Provider [phone] Daphnie SARMIENTO, Dr. Duron Other Provider Unavailabl lonnie Pineda MD, Dr. Tijerina Other Provider Alli SARMIENTO, Dr. Minor Other Provider Fritz SARMIENTO, Dr. Whittington Other Provider Corona SARMIENTO, Dr. Miguel Other Provider [phone] Mica MARTELL, Dr. Starks Other Provider Megan SARMIENTO, Dr. Chan Other Provider Erika SARMIENTO, Dr. Reyes Other Provider [phone] Kerry MARTELL, Dr. Harry Other Provider Chas SARMIENTO, Dr. Turner Other Provider Kuldeep SARMIENTO, Dr. Regalado Other Provider Byron MARTELL, Dr. Sandoval Other Provider Yuriy SARMIENTO, Dr. Fairchild Attending Provider Dr. Cuba Allred DO Attending Provider Dr. Lori Matthews DO Referring Provider [phone] Raymundo Bhardwaj DO Referring Provider Malinda SARMIENTO, Dr. Fonseca Attending Provider [phone] Jeremias SARMIENTO, Dr. Scott Pabon Admit Provider Dr. Scott Mcdowell MD, Chi Attending Provider Dr. Scott Mcdowell MD, Chi Referring Provider Jameel PROMOTIONAL 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Lori Referring Provider Fareed PROMOTIONAL 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Cindy Attending Provider Dr. Scott Mcdowell MD, Chi Primary Care Provider Fareed PROMOTIONAL 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, Cindy Referring Provider FIGUEROA JENKINS MD Attending [...] Provider Fina MARTELL, Dr. Sherman Other Provider Jeremias SARMIENTO, Dr. Scott Pabon Primary Care Provider [phone] Fareed YI-CCindy Attending Provider Jeremias SARMIENTO, Dr. Scott Pabon Referring Provider Malinda SARMIENTO, Dr. Fonseca Attending Provider [phone] Elvia SARMIENTO, Dr. Gomez Admit Provider [phone] Fina MARTELL, Dr. Sherman Other Provider Elvia SARMIENTO, Dr. Gomez Other Provider Fina MARTELL, Dr. Sherman Attending Provider [phone] Wagner SARMIENTO, Dr. Luca Hernandez Attending Provider Kasey Funes Referring Provider [phone] Jeremias SARMIENTO, Dr. Scott Pabon Admit Provider Jeremias SARMIENTO, Dr. Scott Pabon Attending Provider KASEY NUNEZ PA-C Attending Unavailab hakan CROWLEY PA-C, VICK Marr Attending Unavailable ELVIA SARMIENTO, DR BRIA Hernandez Attending Unavailab hakan GAN MD, DR BRIA Hernandez Attending Unavailab Bria Huang Admitting Unavailable Bria Gna Attending Unavailable Lori Dale Primary Care Unavailable Lori Dale Primary Care Unavailable Jeremias, Scott Chi Attending Unavailable Jeremias, Scott Chi Admitting Unavailable Jeremias, Scott Chi Primary Care Unavailable Guerrier PROMOTIONAL MARKETING AGENT, Cindy Referring Unavailable Guerrier PROMOTIONAL MARKETING AGENT, Cindy Attending Unavailable Jeremias, Scott Chi Referring Unavailable Jameel, Lori Primary Care Unavailable [place], Raymundo Attending Unavailable Jameel, Lori Primary Care [...] Unavailable Jeremias, Scott Chi Referring Unavailable Guerrier PROMOTIONAL MARKETING AGENT, Cindy Attending Unavailable Jameel, Lori Primary Care Unavailable Jameel, Lori Referring Unavailable Guerrier PROMOTIONAL MARKETING AGENT, Cindy Attending Unavailable Gurinder Yan Attending Unavailabl e Jameel, Lori Primary Care Unavailable Cuba Allred Attending Unavailable Jeremias, Scott Chi Referring Unavailable Jeremias, Scott Chi Primary Care Unavailable [place]ope[place]Randy[place] Attending Unavailable Jeremias, Scott Chi Primary Care [...] Active docusate sodium 50 mg / sennosides, retirement 8.6 mg oral tablet (5 sources) Start: [...] Drug Class(es) Dates Sig (Normalized) Sig (Original) [id number] 200 actuat albuterol 0.09 mg/actuat metered dose [...] Profile (BMP )on 06-19-2025 BUN Normal 03-17 [facility] Comment on above: Result Comment: Canc elled via OM: Order cancelled - Patient discharged Performed By: #### L 500.2500, L100.0100 ####[facility] [address] [place], [address] BUN/CRE Normal 10-20 [facility] Comment on above: Result Comment: Canc elled via OM: Order cancelled - Patient discharged Performed By: #### L 500.2500, L100.0100 ####[facility] [address] [place], [address] Calcium Normal 7.6-11.0 [facility] Comment on above: Result Comment: Canc elled via OM: Order cancelled - Patient discharged Performed By: #### L 500.2500, L100.0100 ####[facility] [address] [place], [address] CL Normal 98-108 [facility] Comment on above: Result Comment: Canc elled via OM: Order cancelled - Patient discharged Performed By: #### L 500.2500, L100.0100 ####[facility] [address] [place], [address] CO2 Normal 21.0-32.0 [facility] Comment on above: Result Comment: Canc elled via OM: Order cancelled - Patient discharged Performed By: #### L 500.2500, L100.0100 ####[facility] [address] [place], [address] CREAT,SERUM Normal 0.70-1.20 [facility] Comment on above: Result Comment: Canc elled via OM: Order cancelled - Patient discharged Performed By: #### L 500.2500, L100.0100 ####[facility] [address] [place], [address] eGFR Normal >60 [facility] Comment on above: Result Comment: Canc elled via OM: Order cancelled - Patient discharged Performed By: #### L 500.2500, L100.0100 ####[facility] [address] [place], [address] GAP Normal 5-15 [facility] Comment on above: Result Comment: Canc elled via OM: Order cancelled - Patient discharged Performed By: #### L 500.2500, L100.0100 ####[facility] [address] [place], [address] GLU Normal 70-99 [facility] Comment on above: Result Comment: Canc elled via OM: Order cancelled - Patient discharged Performed By: #### L 500.2500, L100.0100 ####[facility] [address] [place], [address] Potassium Normal 3.3-5.1 [facility] Comment on above: Result Comment: Canc elled via OM: Order cancelled - Patient discharged Performed By: #### L 500.2500, L100.0100 ####[facility] [address] [place], [address] Basic Metabolic Profile (BMP) Normal 133-145 [facility] Comment on above: Result Comment: Canc elled via OM: Order cancelled - Patient discharged Performed By: #### L 500.2500, L100.0100 ####[facility] [address] [place], [address] CBC W/Diff, Automatedon 07-2 Absolute Neut Normal 2.0-7.7 [facility] Comment on above: Result Comment: Canc elled via OM: Order cancelled - Patient discharged Performed By: #### L 500.2500, L100.0100 ####[facility] [address] [place], [address] HCT Normal 37-47 [facility] Comment on above: Result Comment: Canc elled via OM: Order cancelled - Patient discharged Performed By: #### L 500.2500, L100.0100 ####[facility] [address] [place], [address] HGB Normal 12.0-15.0 [facility] Comment on above: Result Comment: Canc elled via OM: Order cancelled - Patient discharged Performed By: #### L 500.2500, L100.0100 ####[facility] [address] [place], [address] MCH Normal 27.0-32.0 [facility] Comment on above: Result Comment: Canc elled via OM: Order cancelled - Patient discharged Performed By: #### L 500.2500, L100.0100 ####[facility] [address] [place], [address] MCHC Normal 32-36 [facility] Comment on above: Result Comment: Canc elled via OM: Order cancelled - Patient discharged Performed By: #### L 500.2500, L100.0100 ####[facility] [address] [place], [address] MCV Normal 81-99 [facility] Comment on above: Result Comment: Canc elled via OM: Order cancelled - Patient discharged Performed By: #### L 500.2500, L100.0100 ####[facility] [address] [place], [address] NEUT% Normal 47-70 [facility] Comment on above: Result Comment: Canc elled via OM: Order cancelled - Patient discharged Performed By: #### L 500.2500, L100.0100 ####[facility] [address] [place], [address] PLT Normal 150-450 [facility] Comment on above: Result Comment: Canc elled via OM: Order cancelled - Patient discharged Performed By: #### L 500.2500, L100.0100 ####[facility] [address] [place], [address] RBC Normal 4.2-5.4 [facility] Comment on above: Result Comment: Canc elled via OM: Order cancelled - Patient discharged Performed By: #### L 500.2500, L100.0100 ####[facility] [address] [place], [address] RDW CV Normal 11.6-14.6 [facility] Comment on above: Result Comment: Canc elled via OM: Order cancelled - Patient discharged Performed By: #### L 500.2500, L100.0100 ####[facility] [address] [place], [address] RDW SD Normal 35.1-43.9 [facility] Comment on above: Result Comment: Canc elled via OM: Order cancelled - Patient discharged Performed By: #### L 500.2500, L100.0100 ####[facility] [address] [place], [address] WBC Normal 4.4-11.0 [facility] Comment on above: Result Comment: Canc elled via OM: Order cancelled - Patient discharged Performed By: #### L 500.2500, L100.0100 ####[facility] [address] [place], [address] Basic Metabolic Profile (BMP )on 06-12-2025 BUN Normal 4-19 [facility] Comment on above: Result Comment: Canc elled via OM: Order cancelled - Patient discharged Performed By: #### L 100.0100, L500.2500 ####[facility] [address] [place], [address] BUN/CRE Normal 10-20 [facility] Comment on above: Result Comment: Canc elled via OM: Order cancelled - Patient discharged Performed By: #### L 100.0100, L500.2500 ####[facility] [address] [place], [address] Calcium Normal 7.6-11.0 [facility] Comment on above: Result Comment: Canc elled via OM: Order cancelled - Patient discharged Performed By: #### L 100.0100, L500.2500 ####[facility] [address] [place], [address] CL Normal 98-108 [facility] Comment on above: Result Comment: Canc elled via OM: Order cancelled - Patient discharged Performed By: #### L 100.0100, L500.2500 ####[facility] [address] [place], [address] CO2 Normal 21.0-32.0 [facility] Comment on above: Result Comment: Canc elled via OM: Order cancelled - Patient discharged Performed By: #### L 100.0100, L500.2500 ####[facility] [address] [place], [address] CREAT,SERUM Normal 0.70-1.20 [facility] Comment on above: Result Comment: Canc elled via OM: Order cancelled - Patient discharged Performed By: #### L 100.0100, L500.2500 ####[facility] [address] [place], [address] eGFR Normal >60 [facility] Comment on above: Result Comment: Canc elled via OM: Order cancelled - Patient discharged Performed By: #### L 100.0100, L500.2500 ####[facility] [address] [place], [address] GAP Normal 5-15 [facility] Comment on above: Result Comment: Canc elled via OM: Order cancelled - Patient discharged Performed By: #### L 100.0100, L500.2500 ####[facility] [address] [place], [address] GLU Normal 70-99 [facility] Comment on above: Result Comment: Canc elled via OM: Order cancelled - Patient discharged Performed By: #### L 100.0100, L500.2500 ####[facility] [address] [place], [address] Potassium Normal 3.3-5.1 [facility] Comment on above: Result Comment: Canc elled via OM: Order cancelled - Patient discharged Performed By: #### L 100.0100, L500.2500 ####[facility] [address] [place], [address] Basic Metabolic Profile (BMP) Normal 133-145 [facility] Comment on above: Result Comment: Canc elled via OM: Order cancelled - Patient discharged Performed By: #### L 100.0100, L500.2500 ####[facility] [address] [place], [address] CBC W/Diff, Automatedon 07-1 -2024 Absolute Neut Normal 2.0-7.7 [facility] Comment on above: Result Comment: Canc elled via OM: Order cancelled - Patient discharged Performed By: #### L 100.0100, L500.2500 ####[facility] [address] [place], [address] HCT Normal 37-47 [facility] Comment on above: Result Comment: Canc elled via OM: Order cancelled - Patient discharged Performed By: #### L 100.0100, L500.2500 ####[facility] [address] [place], [address] HGB Normal 12.0-15.0 [facility] Comment on above: Result Comment: Canc elled via OM: Order cancelled - Patient discharged Performed By: #### L 100.0100, L500.2500 ####[facility] [address] [place], [address] MCH Normal 27.0-32.0 [facility] Comment on above: Result Comment: Canc elled via OM: Order cancelled - Patient discharged Performed By: #### L 100.0100, L500.2500 ####[facility] [address] [place], [address] MCHC Normal 32-36 [facility] Comment on above: Result Comment: Canc elled via OM: Order cancelled - Patient discharged Performed By: #### L 100.0100, L500.2500 ####[facility] [address] [place], [address] MCV Normal 81-99 [facility] Comment on above: Result Comment: Canc elled via OM: Order cancelled - Patient discharged Performed By: #### L 100.0100, L500.2500 ####[facility] [address] [place], [address] NEUT% Normal 47-70 [facility] Comment on above: Result Comment: Canc elled via OM: Order cancelled - Patient discharged Performed By: #### L 100.0100, L500.2500 ####[facility] [address] [place], [address] PLT Normal 150-450 [facility] Comment on above: Result Comment: Canc elled via OM: Order cancelled - Patient discharged Performed By: #### L 100.0100, L500.2500 ####[facility] [address] [place], [address] RBC Normal 4.2-5.4 [facility] Comment on above: Result Comment: Canc elled via OM: Order cancelled - Patient discharged Performed By: #### L 100.0100, L500.2500 ####[facility] [address] [place], [address] RDW CV Normal 11.6-14.6 [facility] Comment on above: Result Comment: Canc elled via OM: Order cancelled - Patient discharged Performed By: #### L 100.0100, L500.2500 ####[facility] [address] [place], [address] RDW SD Normal 35.1-43.9 [facility] Comment on above: Result Comment: Canc elled via OM: Order cancelled - Patient discharged Performed By: #### L 100.0100, L500.2500 ####[facility] [address] [place], [address] WBC Normal 4.4-11.0 [facility] Comment on above: Result Comment: Canc elled via OM: Order cancelled - Patient discharged Performed By: #### L 100.0100, L500.2500 ####[facility] [address] [place], [address] Basic Metabolic Profile (BMP )on 06-05-2025 BUN Normal 4-19 [facility] Comment on above: Result Comment: Canc elled via OM: Order cancelled - Patient discharged Performed By: #### L 500.2500, L100.0100 ####[facility] [address] [place], [address] BUN/CRE Normal 10-20 [facility] Comment on above: Result Comment: Canc elled via OM: Order cancelled - Patient discharged Performed By: #### L 500.2500, L100.0100 ####[facility] [address] [place], [address] Calcium Normal 7.6-11.0 [facility] Comment on above: Result Comment: Canc elled via OM: Order cancelled - Patient discharged Performed By: #### L 500.2500, L100.0100 ####[facility] [address] [place], [address] CL Normal 98-108 [facility] Comment on above: Result Comment: Canc elled via OM: Order cancelled - Patient discharged Performed By: #### L 500.2500, L100.0100 ####[facility] [address] [place], [address] CO2 Normal 21.0-32.0 [facility] Comment on above: Result Comment: Canc elled via OM: Order cancelled - Patient discharged Performed By: #### L 500.2500, L100.0100 ####[facility] [address] [place], [address] CREAT,SERUM Normal 0.70-1.20 [facility] Comment on above: Result Comment: Canc elled via OM: Order cancelled - Patient discharged Performed By: #### L 500.2500, L100.0100 ####[facility] [address] [place], [address] eGFR Normal >60 [facility] Comment on above: Result Comment: Canc elled via OM: Order cancelled - Patient discharged Performed By: #### L 500.2500, L100.0100 ####[facility] [address] [place], [address] GAP Normal 5-15 [facility] Comment on above: Result Comment: Canc elled via OM: Order cancelled - Patient discharged Performed By: #### L 500.2500, L100.0100 ####[facility] [address] [place], [address] GLU Normal 70-99 [facility] Comment on above: Result Comment: Canc elled via OM: Order cancelled - Patient discharged Performed By: #### L 500.2500, L100.0100 ####[facility] [address] [place], [address] Potassium Normal 3.3-5.1 [facility] Comment on above: Result Comment: Canc elled via OM: Order cancelled - Patient discharged Performed By: #### L 500.2500, L100.0100 ####[facility] [address] [place], [address] Basic Metabolic Profile (BMP) Normal 133-145 [facility] Comment on above: Result Comment: Canc elled via OM: Order cancelled - Patient discharged Performed By: #### L 500.2500, L100.0100 ####[facility] [address] [place], [address] CBC W/Diff, Automatedon 07-0 8-2024 Absolute Neut Normal 2.0-7.7 [facility] Comment on above: Result Comment: Canc elled via OM: Order cancelled - Patient discharged Performed By: #### L 500.2500, L100.0100 ####[facility] [address] [place], [address] HCT Normal 37-47 [facility] Comment on above: Result Comment: Canc elled via OM: Order cancelled - Patient discharged Performed By: #### L 500.2500, L100.0100 ####[facility] [address] [place], [address] HGB Normal 12.0-15.0 [facility] Comment on above: Result Comment: Canc elled via OM: Order cancelled - Patient discharged Performed By: #### L 500.2500, L100.0100 ####[facility] [address] [place], [address] MCH Normal 27.0-32.0 [facility] Comment on above: Result Comment: Canc elled via OM: Order cancelled - Patient discharged Performed By: #### L 500.2500, L100.0100 ####[facility] [address] [place], [address] MCHC Normal 32-36 [facility] Comment on above: Result Comment: Canc elled via OM: Order cancelled - Patient discharged Performed By: #### L 500.2500, L100.0100 ####[facility] [address] [place], [address] MCV Normal 81-99 [facility] Comment on above: Result Comment: Canc elled via OM: Order cancelled - Patient discharged Performed By: #### L 500.2500, L100.0100 ####[facility] [address] [place], [address] NEUT% Normal 47-70 [facility] Comment on above: Result Comment: Canc elled via OM: Order cancelled - Patient discharged Performed By: #### L 500.2500, L100.0100 ####[facility] [address] [place], [address] PLT Normal 150-450 [facility] Comment on above: Result Comment: Canc elled via OM: Order cancelled - Patient discharged Performed By: #### L 500.2500, L100.0100 ####[facility] [address] [place], [address] RBC Normal 4.2-5.4 [facility] Comment on above: Result Comment: Canc elled via OM: Order cancelled - Patient discharged Performed By: #### L 500.2500, L100.0100 ####[facility] [address] [place], [address] RDW CV Normal 11.6-14.6 [facility] Comment on above: Result Comment: Canc elled via OM: Order cancelled - Patient discharged Performed By: #### L 500.2500, L100.0100 ####[facility] [facility] [address] [place], [address] RDW SD Normal 35.1-43.9 [facility] Comment on above: Result Comment: Canc elled via OM: Order cancelled - Patient discharged Performed By: #### L 500.2500, L100.0100 ####[facility] [address] [place], [address] WBC Normal 4.4-11.0 [facility] Comment on above: Result Comment: Canc elled via OM: Order cancelled - Patient discharged Performed By: #### L 500.2500, L100.0100 ####[facility] [address] [place], [address] Basic Metabolic Profile (BMP )on 05-29-2025 BUN Normal 4-19 [facility] Comment on above: Result Comment: Canc elled via OM: Order cancelled - Patient discharged Performed By: #### L 100.0100, L500.2500 ####[facility] [address] [place], [address] BUN/CRE Normal 10-20 [facility] Comment on above: Result Comment: Canc elled via OM: Order cancelled - Patient discharged Performed By: #### L 100.0100, L500.2500 ####[facility] [address] [place], [address] Calcium Normal 7.6-11.0 [facility] Comment on above: Result Comment: Canc elled via OM: Order cancelled - Patient discharged Performed By: #### L 100.0100, L500.2500 ####[facility] [address] [place], [address] CL Normal 98-108 [facility] Comment on above: Result Comment: Canc elled via OM: Order cancelled - Patient discharged Performed By: #### L 100.0100, L500.2500 ####[facility] [address] [place], [address] CO2 Normal 21.0-32.0 [facility] Comment on above: Result Comment: Canc elled via OM: Order cancelled - Patient discharged Performed By: #### L 100.0100, L500.2500 ####[facility] [address] [place], [address] CREAT,SERUM Normal 0.70-1.20 [facility] Comment on above: Result Comment: Canc elled via OM: Order cancelled - Patient discharged Performed By: #### L 100.0100, L500.2500 ####[facility] [address] [place], [address] eGFR Normal >60 [facility] Comment on above: Result Comment: Canc elled via OM: Order cancelled - Patient discharged Performed By: #### L 100.0100, L500.2500 ####[facility] [address] [place], [address] GAP Normal 5-15 [facility] Comment on above: Result Comment: Canc elled via OM: Order cancelled - Patient discharged Performed By: #### L 100.0100, L500.2500 ####[facility] [address] [place], [address] GLU Normal 70-99 [facility] Comment on above: Result Comment: Canc elled via OM: Order cancelled - Patient discharged Performed By: #### L 100.0100, L500.2500 ####[facility] [address] [place], [address] Potassium Normal 3.3-5.1 [facility] Comment on above: Result Comment: Canc elled via OM: Order cancelled - Patient discharged Performed By: #### L 100.0100, L500.2500 ####[facility] [address] [place], [address] Basic Metabolic Profile (BMP) Normal 133-145 [facility] Comment on above: Result Comment: Canc elled via OM: Order cancelled - Patient discharged Performed By: #### L 100.0100, L500.2500 ####[facility] [address] [place], [address] CBC W/Diff, Automatedon 07-0 Absolute Neut Normal 2.0-7.7 [facility] Comment on above: Result Comment: Canc elled via OM: Order cancelled - Patient discharged Performed By: #### L 100.0100, L500.2500 ####[facility] [address] [place], [address] HCT Normal 37-47 [facility] Comment on above: Result Comment: Canc elled via OM: Order cancelled - Patient discharged Performed By: #### L 100.0100, L500.2500 ####[facility] [address] [place], [address] HGB Normal 12.0-15.0 [facility] Comment on above: Result Comment: Canc elled via OM: Order cancelled - Patient discharged Performed By: #### L 100.0100, L500.2500 ####[facility] [address] [place], [address] MCH Normal 27.0-32.0 [facility] Comment on above: Result Comment: Canc elled via OM: Order cancelled - Patient discharged Performed By: #### L 100.0100, L500.2500 ####[facility] [address] [place], [address] MCHC Normal 32-36 [facility] Comment on above: Result Comment: Canc elled via OM: Order cancelled - Patient discharged Performed By: #### L 100.0100, L500.2500 ####[facility] [address] [place], [address] MCV Normal 81-99 [facility] Comment on above: Result Comment: Canc elled via OM: Order cancelled - Patient discharged Performed By: #### L 100.0100, L500.2500 ####[facility] [address] [place], [address] NEUT% Normal 47-70 [facility] Comment on above: Result Comment: Canc elled via OM: Order cancelled - Patient discharged Performed By: #### L 100.0100, L500.2500 ####[facility] [address] [place], [address] PLT Normal 150-450 [facility] Comment on above: Result Comment: Canc elled via OM: Order cancelled - Patient discharged Performed By: #### L 100.0100, L500.2500 ####[facility] [address] [place], [address] RBC Normal 4.2-5.4 [facility] Comment on above: Result Comment: Canc elled via OM: Order cancelled - Patient discharged Performed By: #### L 100.0100, L500.2500 ####[facility] [address] [place], [address] RDW CV Normal 11.6-14.6 [facility] Comment on above: Result Comment: Canc elled via OM: Order cancelled - Patient discharged Performed By: #### L 100.0100, L500.2500 ####[facility] [address] [place], [address] RDW SD Normal 35.1-43.9 [facility] Comment on above: Result Comment: Canc elled via OM: Order cancelled - Patient discharged Performed By: #### L 100.0100, L500.2500 ####[facility] [address] [place], [address] WBC Normal 4.4-11.0 [facility] Comment on above: Result Comment: Canc elled via OM: Order cancelled - Patient discharged Performed By: #### L 100.0100, L500.2500 ####[facility] [address] [place], [address] Absolute lymphocyte countOrd ered By: Scott Mcdowell on 05-22-2025 Lymphocytes Auto (Unsp spec) [#/Vol] 1.34 10*3/uL 0.83-4.51 [facility] Absolute neutrophil countOrd ered By: Scott Mcdowell on 05-22-2025 Neutrophils (Bld) [#/Vol] 4.6 10*3/uL 2.0-7.7 [facility] Anion gap in Serum or Plasma Ordered By: Scott Mcdowell on 05-22-2025 Anion gap [Moles/Vol] 8 mmol/L 5-[address] [facility] Automated lymphocyte count a s percentage of total leukocytesOrdered By: Scott Mcdowell on 05-22-2025 Lymphocytes/100 WBC Auto (Unsp spec) 19.0 % 19-41 [facility] BUN/creatinine ratioOrdered By: Scott Jeremias on 05-22-2025 Urea nitrogen/Creatinine [Mass ratio] 17.9 mg/mg - [facility] Basic Metabolic Profile (BMP )on 05-22-2025 BUN/CRE 17.9 RATIO Normal - [facility] Comment on above: Performed By: #### L 500.2500, L100.0100 ####[facility] [address] [place], [address] Calcium [Mass/Vol] 9.7 mg/dL Normal 7.6-11.0 [facility] Comment on above: Performed By: #### L 500.2500, L100.0100 ####[facility] [address] [place], [address] Chloride [Moles/Vol] 103 mmol/L Normal 98-108 [facility] Comment on above: Performed By: #### L 500.2500, L100.0100 ####[facility] [address] [place], [address] CO2 [Moles/Vol] 28.1 mmol/L Normal 21.0-32.0 [facility] Comment on above: Performed By: #### L 500.2500, L100.0100 ####[facility] [address] [place], [address] Creatinine [Mass/Vol] 0.57 mg/dL Low 0.70-1.[address] [facility] Comment on above: Performed By: #### L 500.2500, L100.0100 ####[facility] [address] [place], [address] ECRCL 58.62 ml/min Normal 50-250 [facility] Comment on above: Performed By: #### L 500.2500, L100.0100 ####[facility] [address] [place], [address] GAP 8 Normal 5-15 [facility] Comment on above: Performed By: #### L 500.2500, L100.0100 ####[facility] [address] [place], [address] GFR/1.73 sq M.predicted among non-blacks MDRD (S/P/Bld) [Vol rate/Area] 97 mL/min/{1.73_m2} Normal >60 [facility] Comment on above: Result Comment: mL/m in/1.73m2 CKD-EPI Creatinine Equation (2020) Performed By: #### L 500.2500, L100.0100 ####[facility] [address] [place], [address] Glucose [Mass/Vol] 97 mg/dL Normal 70-99 [facility] Comment on above: Performed By: #### L 500.2500, L100.0100 ####[facility] [address] [place], [address] Potassium [Moles/Vol] 4.3 mmol/L Normal 3.3-5.[address] [facility] Comment on above: Performed By: #### L 500.2500, L100.0100 ####[facility] [address] [place], [address] Sodium [Moles/Vol] 140 mmol/L Normal 133-145 [facility] Comment on above: Performed By: #### L 500.2500, L100.0100 ####[facility] [address] [place], [address] Urea nitrogen [Mass/Vol] 10 mg/dL Normal 4-19 [facility] Comment on above: Performed By: #### L 500.2500, L100.0100 ####[facility] [address] [place], [address] Basophil percentageOrdered B y: Scott Mcdowell on 06-24-2025 Basophils/100 WBC (Bld) 1.0 % 0-1 [facility] CBC W/Diff, Automatedon 06-2 -2024 Absolute Lymph 1.34 X10 3/uL Normal 0.83-4.51 [facility] Comment on above: Performed By: #### L 500.2500, L100.0100 ####[facility] [address] [place], [address] Absolute Neut 4.6 X10 3/uL Normal 2.0-7.7 [facility] Comment on above: Performed By: #### L 500.2500, L100.0100 ####[facility] [address] [place], [address] Basophils/100 WBC (Bld) 1.0 % Normal 0-1 [facility] Comment on above: Performed By: #### L 500.2500, L100.0100 ####[facility] [address] [place], [address] Eosinophils/100 WBC (Bld) 4.5 % Normal 0-5 [facility] Comment on above: Performed By: #### L 500.2500, L100.0100 ####[facility] [address] [place], [address] Erythrocyte distribution width (RBC) [Ratio] 14.6 % Normal 11.6-14.6 [facility] Comment on above: Performed By: #### L 500.2500, L100.0100 ####[facility] [address] [place], [address] Hematocrit (Bld) [Volume fraction] 31.1 % Low 37-47 [facility] Comment on above: Performed By: #### L 500.2500, L100.0100 ####[facility] [address] [place], [address] Hemoglobin (Bld) [Mass/Vol] 10.1 g/dL Low 12.0-15.0 [facility] Comment on above: Performed By: #### L 500.2500, L100.0100 ####[facility] [address] [place], [address] IG% 0.300 Normal 0.0-0.9 [facility] Comment on above: Result Comment: IG% - Immature Granulocytes (promyelocytes, myelocytes andmetamyelocytes) > 1% indicates that a LEFT SHIFT is Present. Performed By: #### L 500.2500, L100.0100 ####[facility] [address] [place], [address] Lymphocytes/100 WBC (Bld) 19.0 % Normal 19-41 [facility] Comment on above: Performed By: #### L 500.2500, L100.0100 ####[facility] [address] [place], [address] MCH (RBC) [Entitic mass] 28.5 pg Normal 27.0-32.0 [facility] Comment on above: Performed By: #### L 500.2500, L100.0100 ####[facility] [address] [place], [address] MCHC (RBC) [Mass/Vol] 32.5 g/dL Normal 32-[address] [facility] Comment on above: Performed By: #### L 500.2500, L100.0100 ####[facility] [address] [place], [address] MCV (RBC) [Entitic vol] 87.6 fL Normal 81-99 [facility] Comment on above: Performed By: #### L 500.2500, L100.0100 ####[facility] [address] [place], [address] Monocytes/100 WBC (Bld) 9.9 % Normal 0-10 [facility] Comment on above: Performed By: #### L 500.2500, L100.0100 ####[facility] [address] [place], [address] Neutrophils/100 WBC (Bld) 65.3 % Normal 47-70 [facility] Comment on above: Performed By: #### L 500.2500, L100.0100 ####[facility] [address] [place], [address] Nucleated RBC (Bld) [#/Vol] 0 10*3/uL Normal 0-5 [facility] Comment on above: Performed By: #### L 500.2500, L100.0100 ####[facility] [address] [place], [address] Platelet mean volume (Bld) [Entitic vol] 9.3 fL Normal 6.2-12.0 [facility] Comment on above: Performed By: #### L 500.2500, L100.0100 ####[facility] [address] [place], [address] Platelets (Bld) [#/Vol] 429 10*3/uL Normal 150-450 [facility] Comment on above: Performed By: #### L 500.2500, L100.0100 ####[facility] [address] [place], [address] RBC (Bld) [#/Vol] 3.55 10*6/uL Low 4.2-5.4 [facility] Comment on above: Performed By: #### L 500.2500, L100.0100 ####[facility] [address] [place], [address] RDW SD 46.5 fl High 35.1-43.9 [facility] Comment on above: Performed By: #### L 500.2500, L100.0100 ####[facility] [address] [place], [address] WBC (Bld) [#/Vol] 7.1 10*3/uL Normal 4.4-11.0 [facility] Comment on above: Performed By: #### L 500.2500, L100.0100 ####[facility] [address] [place], [address] Carbon dioxide, total [Moles /volume] in Central venous bloodOrdered By: Scott Mcdowell on 05-22-2025 CO2 [Moles/Vol] 28.1 mmol/L 21.0-32.0 [facility] Chloride assayOrdered By: Kem Mcdowell on 05-22-2025 Chloride [Moles/Vol] 103 mmol/L 98-108 [facility] Eosinophil percentageOrdered By: Scott Mcdowell on 05-22-2025 Eosinophils/100 WBC (Bld) 4.5 % 0-5 [facility] Erythrocyte distribution wid th ratioOrdered By: Scott Mcdowell on 05-22-2025 Erythrocyte distribution width (RBC) [Ratio] 14.6 % 11.6-14.6 [facility] Erythrocyte distribution wid th standard deviationOrdered By: Scott Mcdowell on 05-22-2025 Erythrocyte distribution width (RBC) [Ratio] 46.5 fl High 35.1-43.9 [facility] Glomerular filtration rate ( GFR) estimation/1.73 sq m using serum, plasma, or whole bOrdered By: Scott Mcdowell on 05-22-2025 GFR/1.73 sq M.predicted among non-blacks MDRD (S/P/Bld) [Vol rate/Area] 97 mL/min/{1.73_m2} >60 [facility] Comment on above: mL/min/1.73m2 CKD-EP I Creatinine Equation (2020) Hematocrit Auto (Bld) [Volum e fraction]Ordered By: Scott Mcdowell 05-22-2025 Hematocrit (Bld) [Volume fraction] 31.1 % Low 37-47 [facility] Hemoglobin measurementOrdere d By: Scott Mcdowell on 05-22-2025 Hemoglobin (Bld) [Mass/Vol] 10.1 g/dL Low 12.0-15.0 [facility] Immature granulocytes/100 WB C Auto (Bld)Ordered By: Scott Mcdowell 05-22-2025 Immature granulocytes/100 WBC (Bld) 0.300 % 0.0-0.9 [facility] Comment on above: IG% - Immature Granu locytes (promyelocytes, myelocytes and metamyelocytes) > 1% indicates that a LEFT SHIFT is Present. MCV (mean corpuscular volume ) determinationOrdered By: Scott Mcdowell on 05-22-2025 MCV (RBC) [Entitic vol] 87.6 fL 81-99 [facility] Mean corpuscular hemoglobin (MCH) determinationOrdered By: Scott Mcdowell on 05-22-2025 MCH (RBC) [Entitic mass] 28.5 pg 27.0-32.0 [facility] Mean corpuscular hemoglobin concentration (MCHC) determinationOrdered By: Scott Mcdowell on 05-22-2025 MCHC (RBC) [Mass/Vol] 32.5 g/dL 32-[address] [facility] Mean platelet volume determi nationOrdered By: Scott Mcdowell on 05-22-2025 Platelet mean volume (Bld) [Entitic vol] 9.3 fL 6.2-12.0 [facility] Monocyte percentageOrdered B y: Scott Mcdowell on 05-22-2025 Monocytes/100 WBC (Bld) 9.9 % 0-10 [facility] Neutrophil percentageOrdered By: Scott Mcdowell on 05-22-2025 Neutrophils/100 WBC (Bld) 65.3 % 47-70 [facility] Nucleated red blood cell per centageOrdered By: Scott Mcdowell on 05-22-2025 Nucleated RBC/100 WBC (Bld) [Ratio] 0 % 0-5 [facility] Platelet countOrdered By: Kem Mcdowell on 05-22-2025 Platelets (Bld) [#/Vol] 429 10*3/uL 150-450 [facility] Potassium measurement (mass/ volume)Ordered By: Scott Mcdowell on 05-22-2025 Potassium (Unsp spec) [Mass/Vol] 4.3 mmol/L 3.3-5.1 [facility] RBC Auto (Bld) [#/Vol]Ordere d By: Scott Mcdowell on 05-22-2025 RBC (Bld) [#/Vol] 3.55 10*6/uL Low 4.2-5.4 [facility] Serum creatinine measurement (mass/volume)Ordered By: Scott Mcdowell on 05-22-2025 Creatinine [Mass/Vol] 0.57 mg/dL Low 0.70-1.[address] [facility] Serum glucose measurement (m ass/volume)Ordered By: Scott Mcdowell on 05-22-2025 Glucose [Mass/Vol] 97 mg/dL 70-99 [facility] Serum or plasma calcium aury urement (mass/volume)Ordered By: Scott Mcdowell on 05-22-2025 Calcium [Mass/Vol] 9.7 mg/dL 7.6-11.0 [facility] Serum or plasma urea nitroge n measurement (mass/volume)Ordered By: Scott Mcdowell on 05-22-2025 Urea nitrogen [Mass/Vol] 10 mg/dL -19 [facility] Sodium levelOrdered By: Scott Mcdowell on 05-22-2025 Sodium [Moles/Vol] 140 mmol/L 133-145 [facility] White blood cell (WBC) count Ordered By: Scott Mcdowell on 05-22-2025 WBC (Bld) [#/Vol] 7.1 10*3/uL 4.4-11.0 [facility] Abdomen Single Viewon 2024 Abdomen Single View Normal [facility] HH, Hemoglobin AND Hematocri ton 05-17-2025 Hematocrit (Bld) [Volume fraction] 31.2 % Low 37-47 [facility] Comment on above: Performed By: #### L 100.0600 ####[facility] [address] [place], [place], [address] Hemoglobin (Bld) [Mass/Vol] 10.3 g/dL Low 12.0-15.0 [facility] Comment on above: Performed By: #### L 100.0600 ####[facility] [address] [place], [address] Basic Metabolic Profile (BMP )on 05-15-2025 BUN/CRE 24.8 RATIO High 10-20 [facility] Comment on above: Performed By: #### L 100.0100, L500.2500 ####[facility] [address] [place], [address] Calcium [Mass/Vol] 9.3 mg/dL Normal 7.6-11.0 [facility] Comment on above: Performed By: #### L 100.0100, L500.2500 ####[facility] [address] [place], [address] Chloride [Moles/Vol] 103 mmol/L Normal 98-108 [facility] Comment on above: Performed By: #### L 100.0100, L500.2500 ####[facility] [address] [place], [address] CO2 [Moles/Vol] 26.2 mmol/L Normal 21.0-32.0 [facility] Comment on above: Performed By: #### L 100.0100, L500.2500 ####[facility] [address] [place], [address] Creatinine [Mass/Vol] 0.58 mg/dL Low 0.70-1.[address] [facility] Comment on above: Performed By: #### L 100.0100, L500.2500 ####[facility] [address] [place], [address] ECRCL 58.57 ml/min Normal 50-250 [facility] Comment on above: Performed By: #### L 100.0100, L500.2500 ####[facility] [address] [place], [address] GAP 10 Normal 5-15 [facility] Comment on above: Performed By: #### L 100.0100, L500.2500 ####[facility] [address] [place], [address] GFR/1.73 sq M.predicted among non-blacks MDRD (S/P/Bld) [Vol rate/Area] 96 mL/min/{1.73_m2} Normal >60 [facility] Comment on above: Result Comment: mL/m in/1.73m2 CKD-EPI Creatinine Equation (2020) Performed By: #### L 100.0100, L500.2500 ####[facility] [address] [place], [address] Glucose [Mass/Vol] 104 mg/dL High 70-99 [facility] Comment on above: Performed By: #### L 100.0100, L500.2500 ####[facility] [address] [place], [address] Potassium [Moles/Vol] 4.4 mmol/L Normal 3.3-5.[address] [facility] Comment on above: Performed By: #### L 100.0100, L500.2500 ####[facility] [address] [place], [address] Sodium [Moles/Vol] 139 mmol/L Normal 133-145 [facility] Comment on above: Performed By: #### L 100.0100, L500.2500 ####[facility] [address] [place], [address] Urea nitrogen [Mass/Vol] 14 mg/dL Normal 4-19 [facility] Comment on above: Performed By: #### L 100.0100, L500.2500 ####[facility] [address] [place], [address] CBC W/Diff, Automatedon - Absolute Lymph 1.22 X10 3/uL Normal 0.83-4.51 [facility] Comment on above: Performed By: #### L 100.0100, L500.2500 ####[facility] [address] [place], [address] Absolute Neut 4.7 X10 3/uL Normal 2.0-7.7 [facility] Comment on above: Performed By: #### L 100.0100, L500.2500 ####[facility] [address] [place], [address] Basophils/100 WBC (Bld) 0.7 % Normal 0-1 [facility] Comment on above: Performed By: #### L 100.0100, L500.2500 ####[facility] [address] [place], [address] Eosinophils/100 WBC (Bld) 5.5 % High 0-5 [facility] Comment on above: Performed By: #### L 100.0100, L500.2500 ####[facility] [address] [place], [address] Erythrocyte distribution width (RBC) [Ratio] 14.4 % Normal 11.6-14.6 [facility] Comment on above: Performed By: #### L 100.0100, L500.2500 ####[facility] [address] [place], [address] Hematocrit (Bld) [Volume fraction] 28.5 % Low 37-47 [facility] Comment on above: Performed By: #### L 100.0100, L500.2500 ####[facility] [address] [place], [address] Hemoglobin (Bld) [Mass/Vol] 9.3 g/dL Low 12.0-15.0 [facility] Comment on above: Performed By: #### L 100.0100, L500.2500 ####[facility] [address] [place], [address] IG% 0.400 Normal 0.0-0.9 [facility] Comment on above: Result Comment: IG% - Immature Granulocytes (promyelocytes, myelocytes andmetamyelocytes) > 1% indicates that a LEFT SHIFT is Present. Performed By: #### L 100.0100, L500.2500 ####[facility] [address] [place], [address] Lymphocytes/100 WBC (Bld) 16.9 % Low 19-41 [facility] Comment on above: Performed By: #### L 100.0100, L500.2500 ####[facility] [address] [place], [address] MCH (RBC) [Entitic mass] 28.7 pg Normal 27.0-32.0 [facility] Comment on above: Performed By: #### L 100.0100, L500.2500 ####[facility] [address] [place], [address] MCHC (RBC) [Mass/Vol] 32.6 g/dL Normal 32-[address] [facility] Comment on above: Performed By: #### L 100.0100, L500.2500 ####[facility] [address] [place], [address] MCV (RBC) [Entitic vol] 88.0 fL Normal 81-99 [facility] Comment on above: Performed By: #### L 100.0100, L500.2500 ####[facility] [address] [place], [address] Monocytes/100 WBC (Bld) 11.6 % High 0-10 [facility] Comment on above: Performed By: #### L 100.0100, L500.2500 ####[facility] [address] [place], [address] Neutrophils/100 WBC (Bld) 64.9 % Normal 47-70 [facility] Comment on above: Performed By: #### L 100.0100, L500.2500 ####[facility] [address] [place], [address] Nucleated RBC (Bld) [#/Vol] 0 10*3/uL Normal 0-5 [facility] Comment on above: Performed By: #### L 100.0100, L500.2500 ####[facility] [address] [place], [address] Platelet mean volume (Bld) [Entitic vol] 10.0 fL Normal 6.2-12.0 [facility] Comment on above: Performed By: #### L 100.0100, L500.2500 ####[facility] [address] [place], [address] Platelets (Bld) [#/Vol] 255 10*3/uL Normal 150-450 [facility] Comment on above: Performed By: #### L 100.0100, L500.2500 ####[facility] [address] [place], [address] RBC (Bld) [#/Vol] 3.24 10*6/uL Low 4.2-5.4 [facility] Comment on above: Performed By: #### L 100.0100, L500.2500 ####[facility] [address] [place], [address] RDW SD 45.7 fl High 35.1-43.9 [facility] Comment on above: Performed By: #### L 100.0100, L500.2500 ####[facility] [address] [place], [address] WBC (Bld) [#/Vol] 7.2 10*3/uL Normal 4.4-11.0 [facility] Comment on above: Performed By: #### L 100.0100, L500.2500 ####[facility] [address] [place], [address] CBC-Complete Blood Cnt No Di ffon 05-14-2025 Erythrocyte distribution width (RBC) [Ratio] 14.3 % Normal 11.6-14.6 [facility] Comment on above: Performed By: #### L 100.0500 ####[facility] [address] [place], [address] Hematocrit (Bld) [Volume fraction] 28.7 % Low 37-47 [facility] Comment on above: Performed By: #### L 100.0500 ####[facility] [address] [place], [address] Hemoglobin (Bld) [Mass/Vol] 9.3 g/dL Low 12.0-15.0 [facility] Comment on above: Performed By: #### L 100.0500 ####[facility] [address] [place], [address] MCH (RBC) [Entitic mass] 28.7 pg Normal 27.0-32.0 [facility] Comment on above: Performed By: #### L 100.0500 ####[facility] [address] [place], [address] MCHC (RBC) [Mass/Vol] 32.4 g/dL Normal 32-[address] [facility] Comment on above: Performed By: #### L 100.0500 ####[facility] [address] [place], [address] MCV (RBC) [Entitic vol] 88.6 fL Normal 81-99 [facility] Comment on above: Performed By: #### L 100.0500 ####[facility] [address] [place], [address] Platelet mean volume (Bld) [Entitic vol] 10.3 fL Normal 6.2-12.0 [facility] Comment on above: Performed By: #### L 100.0500 ####[facility] [address] [place], [address] Platelets (Bld) [#/Vol] 220 10*3/uL Normal 150-450 [facility] Comment on above: Performed By: #### L 100.0500 ####[facility] [address] [place], [address] RBC (Bld) [#/Vol] 3.24 10*6/uL Low 4.2-5.4 [facility] Comment on above: Performed By: #### L 100.0500 ####[facility] [address] [place], [address] RDW SD 46.1 fl High 35.1-43.9 [facility] Comment on above: Performed By: #### L 100.0500 ####[facility] [address] [place], [address] WBC (Bld) [#/Vol] 8.0 10*3/uL Normal 4.4-11.0 [facility] Comment on above: Performed By: #### L 100.0500 ####[facility] [address] [place], [address] Erythrocyte distribution wid th ratioOrdered By: Andrea Hawkins on 05-14-2025 Erythrocyte distribution width (RBC) [Ratio] 14.3 % 11.6-14.6 [facility] Erythrocyte distribution wid th standard deviationOrdered By: Andrea Hawkins on 05-14-2025 Erythrocyte distribution width (RBC) [Ratio] 46.1 fl High 35.1-43.9 [facility] Hematocrit Auto (Bld) [Volum e fraction]Ordered By: Andrea Hawkins on 05-14-2025 Hematocrit (Bld) [Volume fraction] 28.7 % Low 37-47 [facility] Hemoglobin measurementOrdere d By: Andrea Hawkins on 05-14-2025 Hemoglobin (Bld) [Mass/Vol] 9.3 g/dL Low 12.0-15.0 [facility] MCV (mean corpuscular volume ) determinationOrdered By: Andrea Hawkins on 05-14-2025 MCV (RBC) [Entitic vol] 88.6 fL 81-99 [facility] Mean corpuscular hemoglobin (MCH) determinationOrdered By: Andrea Hawkins on 05-14-2025 MCH (RBC) [Entitic mass] 28.7 pg 27.0-32.0 [facility] Mean corpuscular hemoglobin concentration (MCHC) determinationOrdered By: Andrea Hawkins on 05-14-2025 MCHC (RBC) [Mass/Vol] 32.4 g/dL 32-[address] [facility] Mean platelet volume determi nationOrdered By: Andrea Hawkins on 05-14-2025 Platelet mean volume (Bld) [Entitic vol] 10.3 fL 6.2-12.0 [facility] Platelet countOrdered By: Ra barbara Hawkins on 05-14-2025 Platelets (Bld) [#/Vol] 220 10*3/uL 150-450 [facility] RBC Auto (Bld) [#/Vol]Ordere d By: Andrea Hawkins on 05-14-2025 RBC (Bld) [#/Vol] 3.24 10*6/uL Low 4.2-5.4 [facility] White blood cell (WBC) count Ordered By: Andrea Hawkins on 05-14-2025 WBC (Bld) [#/Vol] 8.0 10*3/uL 4.4-11.0 [facility] Culture, Anaerobic Any Sourc yaya 05-13-2025 CUAN CULTURE INOCULATED F ROM REFRIGERATED SAMPLE 17 HOURS AFTER COLLECTION. AEROBIC AND ANAEROBIC ORGANISM RECOVERY MAY BE EFFECTED. ORDERS. [facility]) SUPRAPATELLAR POUCH, LEFT KNEE- COLLECTED IN OR No anaerobic bacteria isolated. Normal [facility] Comment on above: Performed By: #### M , 3000, ####[facility] [address] [place], [address] CUAN CULTURE INOCULATED F ROM REFRIGERATED SAMPLE 17 HOURS AFTER COLLECTION. AEROBIC AND ANAEROBIC ORGANISM RECOVERY MAY BE EFFECTED. ORDERS. @ UNK UNK 2) TIBIAL MEMBRANE, LEFT KNEE- COLLECTED IN OR. No anaerobic bacteria isolated. Normal [facility] Comment on above: Performed By: #### M 100.4001, M100.1999, M1.3000 ####[facility] [address] [place], [address] CUAN CULTURE INOCULATED F ROM REFRIGERATED SAMPLE 17 HOURS AFTER COLLECTION. AEROBIC AND ANAEROBIC ORGANISM RECOVERY MAY BE EFFECTED. ORDERS. [facility] UN[facility] 3) FEMORAL MEMBRANE, LEFT KNEE- COLLECTED IN OR. No anaerobic bacteria isolated. [facility] Comment on above: Performed By: #### M 100.3000, M100.4001, M100.1999 ####[facility] [address] [place], [address] Wound Cultureon 05-12-2025 WC CULTURE INOCULATED F ROM REFRIGERATED SAMPLE 17 HOURS AFTER COLLECTION. AEROBIC AND ANAEROBIC ORGANISM RECOVERY MAY BE EFFECTED. ORDERS. [facility] UNK 1) SUPRAPATELLAR POUCH, LEFT KNEE- COLLECTED IN OR No growth aerobically. Normal [facility] Comment on above: Performed By: #### M 100.2000, M100.3000, M100.4001 ####[facility] [address] [place], [address] WC CULTURE INOCULATED F ROM REFRIGERATED SAMPLE 17 HOURS AFTER COLLECTION. AEROBIC AND ANAEROBIC ORGANISM RECOVERY MAY BE EFFECTED. ORDERS. [facility] UNK 2) TIBIAL MEMBRANE, LEFT KNEE- COLLECTED IN OR. No growth aerobically. Normal [facility] Comment on above: Performed By: #### M 100.4001, M100.2000, M100.3000 ####[facility] [address] [place], [address] WC CULTURE INOCULATED F ROM REFRIGERATED SAMPLE 17 HOURS AFTER COLLECTION. AEROBIC AND ANAEROBIC ORGANISM RECOVERY MAY BE EFFECTED. ORDERS. [facility] UN[facility] 3) FEMORAL MEMBRANE, LEFT KNEE- COLLECTED IN OR. No growth aerobically. [facility] Comment on above: Performed By: #### M 100.3000, M100.4001, M1 ####[facility] [address] [place], [address] Anion gap in Serum or Plasma Ordered By: Bria Gan on 05-11-2025 Anion gap [Moles/Vol] 9 mmol/L 5-[address] [facility] BUN/creatinine ratioOrdered By: Bria Gan on 05-11-2025 Urea nitrogen/Creatinine [Mass ratio] 18.1 mg/mg - [facility] Basic Metabolic Profile (BMP )on 05-11-2025 BUN/CRE 18.1 RATIO Normal - [facility] Comment on above: Performed By: #### L 100.0500, L500.2500 ####[facility] [address] [place], [address] Calcium [Mass/Vol] 8.9 mg/dL Normal 7.6-11.0 [facility] Comment on above: Performed By: #### L 100.0500, L500.2500 ####[facility] [address] [place], [address] Chloride [Moles/Vol] 105 mmol/L Normal 98-108 [facility] Comment on above: Performed By: #### L 100.0500, L500.2500 ####[facility] [address] [place], [address] CO2 [Moles/Vol] 25.2 mmol/L Normal 21.0-32.0 [facility] Comment on above: Performed By: #### L 100.0500, L500.2500 ####[facility] [address] [place], [address] Creatinine [Mass/Vol] 0.49 mg/dL Low 0.70-1.[address] [facility] Comment on above: Performed By: #### L 100.0500, L500.2500 ####[facility] [address] [place], [address] ECRCL 58.10 ml/min Normal 50-250 [facility] Comment on above: Performed By: #### L 100.0500, L500.2500 ####[facility] [address] [place], [address] GAP 9 Normal -15 [facility] Comment on above: Performed By: #### L 100.0500, L500.2500 ####[facility] [address] [place], [address] GFR/1.73 sq M.predicted among non-blacks MDRD (S/P/Bld) [Vol rate/Area] 100 mL/min/{1.73_m2} Normal >60 [facility] Comment on above: Result Comment: mL/m in/1.73m2 CKD-EPI Creatinine Equation (2020) Performed By: #### L 100.0500, L500.2500 ####[facility] [address] [place], [address] Glucose [Mass/Vol] 103 mg/dL High 70-99 [facility] Comment on above: Performed By: #### L 100.0500, L500.2500 ####[facility] [address] [place], [address] Potassium [Moles/Vol] 3.7 mmol/L Normal 3.3-5.[address] [facility] Comment on above: Performed By: #### L 100.0500, L500.2500 ####[facility] [address] [place], [address] Sodium [Moles/Vol] 140 mmol/L Normal 133-145 [facility] Comment on above: Performed By: #### L 100.0500, L500.2500 ####[facility] [address] [place], [address] Urea nitrogen [Mass/Vol] 9 mg/dL Normal 4-19 [facility] Comment on above: Performed By: #### L 100.0500, L500.2500 ####[facility] [address] [place], [address] CBC-Complete Blood Cnt No Di ffon 05-11-2025 Erythrocyte distribution width (RBC) [Ratio] 14.5 % Normal 11.6-14.6 [facility] Comment on above: Performed By: #### L 100.0500, L500.2500 ####[facility] [address] [place], [address] Hematocrit (Bld) [Volume fraction] 34.0 % Low 37-47 [facility] Comment on above: Performed By: #### L 100.0500, L500.2500 ####[facility] [address] [place], [address] Hemoglobin (Bld) [Mass/Vol] 10.8 g/dL Low 12.0-15.0 [facility] Comment on above: Performed By: #### L 100.0500, L500.2500 ####[facility] [address] [place], [address] MCH (RBC) [Entitic mass] 28.4 pg Normal 27.0-32.0 [facility] Comment on above: Performed By: #### L 100.0500, L500.2500 ####[facility] [address] [place], [address] MCHC (RBC) [Mass/Vol] 31.8 g/dL Low 32-[address] [facility] Comment on above: Performed By: #### L 100.0500, L500.2500 ####[facility] [address] [place], [address] MCV (RBC) [Entitic vol] 89.5 fL Normal 81-99 [facility] Comment on above: Performed By: #### L 100.0500, L500.2500 ####[facility] [address] [place], [address] Platelet mean volume (Bld) [Entitic vol] 10.8 fL Normal 6.2-12.0 [facility] Comment on above: Performed By: #### L 100.0500, L500.2500 ####[facility] [address] [place], [address] Platelets (Bld) [#/Vol] 182 10*3/uL Normal 150-450 [facility] Comment on above: Performed By: #### L 100.0500, L500.2500 ####[facility] [address] [place], [address] RBC (Bld) [#/Vol] 3.80 10*6/uL Low 4.2-5.4 [facility] Comment on above: Performed By: #### L 100.0500, L500.2500 ####[facility] [address] [place], [address] RDW SD 47.4 fl High 35.1-43.9 [facility] Comment on above: Performed By: #### L 100.0500, L500.2500 ####[facility] [address] [place], [address] WBC (Bld) [#/Vol] 7.4 10*3/uL Normal 4.4-11.0 [facility] Comment on above: Performed By: #### L 100.0500, L500.2500 ####[facility] [address] [place], [address] Carbon dioxide, total [Moles /volume] in Central venous bloodOrdered By: Bria Gan on 05-11-2025 CO2 [Moles/Vol] 25.2 mmol/L 21.0-32.0 [facility] Chloride assayOrdered By: St laz Gan on 05-11-2025 Chloride [Moles/Vol] 105 mmol/L 98-108 [facility] Glomerular filtration rate ( GFR) estimation/1.73 sq m using serum, plasma, or whole bOrdered By: Bria Gan on 05-11-2025 GFR/1.73 sq M.predicted among non-blacks MDRD (S/P/Bld) [Vol rate/Area] 100 mL/min/{1.73_m2} >60 [facility] Comment on above: mL/min/1.73m2 CKD-EP I Creatinine Equation (2020) Gram Stainon 05-11-2025 GS Normal [facility] Comment on above: Performed By: #### M 100.3000, M100.4001, ####[facility] [address] [place], [address] GS Normal [facility] Comment on above: Performed By: #### M 100.2000, M100.3000, M100.4000 ####[facility] [address] [place], [address] GS CULTURE INOCULATED F ROM REFRIGERATED SAMPLE 17 HOURS AFTER COLLECTION. AEROBIC AND ANAEROBIC ORGANISM RECOVERY MAY BE EFFECTED. ORDERS. @ UNK UNK 2) TIBIAL MEMBRANE, LEFT KNEE- COLLECTED IN OR. Gram Stain No organisms seen Normal [facility] Comment on above: Performed By: #### M 100.4001, .1999, ####[facility] [address] [place], [address] Potassium measurement (mass/ volume)Ordered By: Bria Gan on 05-11-2025 Potassium (Unsp spec) [Mass/Vol] 3.7 mmol/L 3.3-5.1 [facility] Serum creatinine measurement (mass/volume)Ordered By: Bria Gan on 05-11-2025 Creatinine [Mass/Vol] 0.49 mg/dL Low 0.70-1.[address] [facility] Serum glucose measurement (m ass/volume)Ordered By: Bria Gan on 05-11-2025 Glucose [Mass/Vol] 103 mg/dL High 70-99 [facility] Serum or plasma calcium aury urement (mass/volume)Ordered By: Bria Gan on 05-11-2025 Calcium [Mass/Vol] 8.9 mg/dL 7.6-11.0 [facility] Serum or plasma urea nitroge n measurement (mass/volume)Ordered By: Bria Gan on 05-11-2025 Urea nitrogen [Mass/Vol] 9 mg/dL 4-19 [facility] Sodium levelOrdered By: Jose Gan on 05-11-2025 Sodium [Moles/Vol] 140 mmol/L 133-145 [facility] Venous Duplex US, Unilateral on 05-11-2025 Venous Duplex US, Unilateral Normal [facility] Anaerobic cultureOrdered By: Bria Gan on 05-10-2025 Bacteria identified Anaer cx Nom (Unsp spec) No anaerobic bacteria isolated. [facility] Bacteria identified Anaer cx Nom (Unsp spec) No anaerobic bacteria isolated. [facility] Bacteria identified Anaer cx Nom (Unsp spec) No anaerobic bacteria isolated. [facility] Bedside Glucoseon 05-10-2025 FINGERSTICK GLU 95 mg/dL Normal 74-106 [facility] Comment on above: Result Comment: MARISA DRAKE OF PATIENT CARE PER NURSING PROTOCOL Performed By: #### L 501.080 ####[facility] [address] [place], [place], [address] [facility] deOrdered By: Bria Gan on 05-10-2025 Glucose [Mass/Vol] 95 mg/dL 74-106 [facility] Comment on above: MANAGEMENT OF PATIEN T CARE PER NURSING PROTOCOL Gram stainOrdered By: Bria Gan on 05-10-2025 Microscopic observation Gram stain Nom (Unsp spec) [facility] Microscopic observation Gram stain Nom (Unsp spec) [facility] Microscopic observation Gram stain Nom (Unsp spec) [facility] Knee 1 or 2 Viewson 05-10-20 25 Knee 1 or 2 Views Normal [facility] MR/POSTOP.ANEon 05-10-2025 MR/POSTOP.ANE Normal [facility] MR/KDFFVANF0lf 05-10-2025 MR/POSTOPAN2 Normal [facility] Operative Reporton Operative Report Normal [facility] MRSA/SAID NASAL SCREENon MRSA+SAID SCRN Reason for Exam: PRE OP MRSA MRSA Negative S. AUREUS S. aureus Negative Normal [facility] Comment on above: Performed By: #### M 100.651 ####[facility] [address] [place], [address] MRSA screenOrdered By: Dmitriy Gan on 04-27-2025 MRSA DNA MEI+probe Ql (Unsp spec) [facility] Magnesiumon 04-18-2025 Magnesium [Mass/Vol] 2.3 mg/dL High 1.5-2.2 [facility] Comment on above: Performed By: #### L 501.5200 ####[facility] [address] [place], [address] Magnesium measurement (mass/ volume)Ordered By: Richard Mo on 04-17-2025 Magnesium (Unsp spec) [Mass/Vol] 2.3 mg/dL High 1.5-2.2 [facility] Absolute lymphocyte countOrd ered By: Bria Gan on 04-16-2025 Lymphocytes Auto (Unsp spec) [#/Vol] 1.43 10*3/uL 0.83-4.51 [facility] Absolute neutrophil countOrd ered By: Bria Gan on 04-16-2025 Neutrophils (Bld) [#/Vol] 6.0 10*3/uL 2.0-7.7 [facility] Activated partial thrombopla stin time (aPTT) in platelet poor plasma by coagulation aOrdered By: Bria Gan on 04-16-2025 aPTT Coag (PPP) [Time] 27.1 s 24.1-36.2 [facility] Automated lymphocyte count a s percentage of total leukocytesOrdered By: Bria Gan on 04-16-2025 Lymphocytes/100 WBC Auto (Unsp spec) 16.9 % Low 19-41 [facility] Basophil percentageOrdered B y: Bria Gan on 04-16-2025 Basophils/100 WBC (Bld) 0.8 % 0-1 [facility] Bilirubin, totalOrdered By: Bria Gan on 04-16-2025 Bilirubin [Mass/Vol] 0.21 mg/dL 0.00-1.30 [facility] CBC W/Diff, Automatedon 03-29 Absolute Lymph 1.43 X10 3/uL Normal 0.83-4.51 [facility] Comment on above: Performed By: #### L 500.4050, L300.3900, L100.0100, L300.4310 ####[facility] [address] [place], [address] Absolute Neut 6.0 X10 3/uL Normal 2.0-7.7 [facility] Comment on above: Performed By: #### L 500.4050, L300.3900, L100.0100, L300.4310 ####[facility] [address] [place], [address] Basophils/100 WBC (Bld) 0.8 % Normal 0-1 [facility] Comment on above: Performed By: #### L 500.4050, L300.3900, L100.0100, L300.4310 ####[facility] [address] [place], [address] Eosinophils/100 WBC (Bld) 3.1 % Normal 0-5 [facility] Comment on above: Performed By: #### L 500.4050, L300.3900, L100.0100, L300.4310 ####[facility] [address] [place], [address] Erythrocyte distribution width (RBC) [Ratio] 14.2 % Normal 11.6-14.6 [facility] Comment on above: Performed By: #### L 500.4050, L300.3900, L100.0100, L300.4310 ####[facility] [address] [place], [address] Hematocrit (Bld) [Volume fraction] 41.3 % Normal 37-47 [facility] Comment on above: Performed By: #### L 500.4050, L300.3900, L100.0100, L300.4310 ####[facility] [address] [place], [address] Hemoglobin (Bld) [Mass/Vol] 13.2 g/dL Normal 12.0-15.0 [facility] Comment on above: Performed By: #### L 500.4050, L300.3900, L100.0100, L300.4310 ####[facility] [address] [place], [address] IG% 0.200 Normal 0.0-0.9 [facility] Comment on above: Result Comment: IG% - Immature Granulocytes (promyelocytes, myelocytes andmetamyelocytes) > 1% indicates that a LEFT SHIFT is Present. Performed By: #### L 500.4050, L300.3900, L100.0100, L300.4310 ####[facility] [address] [place], [address] Lymphocytes/100 WBC (Bld) 16.9 % Low 19-41 [facility] Comment on above: Performed By: #### L 500.4050, L300.3900, L100.0100, L300.4310 ####[facility] [address] [place], [address] MCH (RBC) [Entitic mass] 28.5 pg Normal 27.0-32.0 [facility] Comment on above: Performed By: #### L 500.4050, L300.3900, L100.0100, L300.4310 ####[facility] [address] [place], [address] MCHC (RBC) [Mass/Vol] 32.0 g/dL Normal 32-[address] [facility] Comment on above: Performed By: #### L 500.4050, L300.3900, L100.0100, L300.4310 ####[facility] [address] [place], [address] MCV (RBC) [Entitic vol] 89.2 fL Normal 81-99 [facility] Comment on above: Performed By: #### L 500.4050, L300.3900, L100.0100, L300.4310 ####[facility] [address] [place], [address] Monocytes/100 WBC (Bld) 8.4 % Normal 0-10 [facility] Comment on above: Performed By: #### L 500.4050, L300.3900, L100.0100, L300.4310 ####[facility] [address] [place], [address] Neutrophils/100 WBC (Bld) 70.6 % High 47-70 [facility] Comment on above: Performed By: #### L 500.4050, L300.3900, L100.0100, L300.4310 ####[facility] [address] [place], [address] Nucleated RBC (Bld) [#/Vol] 0 10*3/uL Normal 0-5 [facility] Comment on above: Performed By: #### L 500.4050, L300.3900, L100.0100, L300.4310 ####[facility] [address] [place], [address] Platelet mean volume (Bld) [Entitic vol] 10.6 fL Normal 6.2-12.0 [facility] Comment on above: Performed By: #### L 500.4050, L300.3900, L100.0100, L300.4310 ####[facility] [address] [place], [address] Platelets (Bld) [#/Vol] 277 10*3/uL Normal 150-450 [facility] Comment on above: Performed By: #### L 500.4050, L300.3900, L100.0100, L300.4310 ####[facility] [address] [place], [address] RBC (Bld) [#/Vol] 4.63 10*6/uL Normal 4.2-5.4 [facility] Comment on above: Performed By: #### L 500.4050, L300.3900, L100.0100, L300.4310 ####[facility] [address] [place], [address] RDW SD 46.1 fl High 35.1-43.9 [facility] Comment on above: Performed By: #### L 500.4050, L300.3900, L100.0100, L300.4310 ####[facility] [address] [place], [address] WBC (Bld) [#/Vol] 8.5 10*3/uL Normal 4.4-11.0 [facility] Comment on above: Performed By: #### L 500.4050, L300.3900, L100.0100, L300.4310 ####[facility] [address] [place], [address] Comprehensive Metabolic Prof [facility] 04-16-2025 Albumin [Mass/Vol] 4.6 g/dL Normal 3.4-4.8 [facility] Comment on above: Performed By: #### L 500.4050, L300.3900, L100.0100, L300.4310 ####[facility] [address] [place], [address] Albumin/Globulin [Mass ratio] 1.2 {ratio} Normal 0.9-2.4 [facility] Comment on above: Performed By: #### L 500.4050, L300.3900, L100.0100, L300.4310 ####[facility] [address] [place], [address] ALK PHOS 109 U/L High 35-104 [facility] Comment on above: Performed By: #### L 500.4050, L300.3900, L100.0100, L300.4310 ####[facility] [address] [place], [address] ALT [Catalytic activity/Vol] 13 U/L Normal <=34 [facility] Comment on above: Performed By: #### L 500.4050, L300.3900, L100.0100, L300.4310 ####[facility] [address] [place], [address] AST [Catalytic activity/Vol] 21 U/L Normal <=31 [facility] Comment on above: Performed By: #### L 500.4050, L300.3900, L100.0100, L300.4310 ####[facility] [address] [place], [address] Bilirubin [Mass/Vol] 0.21 mg/dL Normal 0.00-1.30 [facility] Comment on above: Performed By: #### L 500.4050, L300.3900, L100.0100, L300.4310 ####[facility] [address] [place], [address] BUN/CRE 26.8 RATIO High 10-20 [facility] Comment on above: Performed By: #### L 500.4050, L300.3900, L100.0100, L300.4310 ####[facility] [address] [place], [address] Calcium [Mass/Vol] 10.3 mg/dL Normal 7.6-11.0 [facility] Comment on above: Performed By: #### L 500.4050, L300.3900, L100.0100, L300.4310 ####[facility] [address] [place], [address] Chloride [Moles/Vol] 103 mmol/L Normal 98-108 [facility] Comment on above: Performed By: #### L 500.4050, L300.3900, L100.0100, L300.4310 ####[facility] [address] [place], [address] CO2 [Moles/Vol] 27.1 mmol/L Normal 21.0-32.0 [facility] Comment on above: Performed By: #### L 500.4050, L300.3900, L100.0100, L300.4310 ####[facility] [address] [place], [address] Creatinine [Mass/Vol] 0.65 mg/dL Low 0.70-1.[address] [facility] Comment on above: Performed By: #### L 500.4050, L300.3900, L100.0100, L300.4310 ####[facility] [address] [place], [address] GAP 11 Normal 5-15 [facility] Comment on above: Performed By: #### L 500.4050, L300.3900, L100.0100, L300.4310 ####[facility] [address] [place], [address] GFR/1.73 sq M.predicted among non-blacks MDRD (S/P/Bld) [Vol rate/Area] 93 mL/min/{1.73_m2} Normal >60 [facility] Comment on above: Result Comment: mL/m in/1.73m2 CKD-EPI Creatinine Equation (2020) Performed By: #### L 500.4050, L300.3900, L100.0100, L300.4310 ####[facility] [address] [place], [address] Globulin (S) [Mass/Vol] 3.7 g/dL Normal 2.2-4.2 [facility] Comment on above: Performed By: #### L 500.4050, L300.3900, L100.0100, L300.4310 ####[facility] [address] [place], [address] Glucose [Mass/Vol] 108 mg/dL High 70-99 [facility] Comment on above: Performed By: #### L 500.4050, L300.3900, L100.0100, L300.4310 ####[facility] [address] [place], [address] Potassium [Moles/Vol] 4.7 mmol/L Normal 3.3-5.[address] [facility] Comment on above: Performed By: #### L 500.4050, L300.3900, L100.0100, L300.4310 ####[facility] [address] [place], [address] Sodium [Moles/Vol] 141 mmol/L Normal 133-145 [facility] Comment on above: Performed By: #### L 500.4050, L300.3900, L100.0100, L300.4310 ####[facility] [address] [place], [address] T PROT 8.3 g/dL Normal 5.9-8.4 [facility] Comment on above: Performed By: #### L 500.4050, L300.3900, L100.0100, L300.4310 ####[facility] [address] [place], [address] Urea nitrogen [Mass/Vol] 18 mg/dL Normal 4-19 [facility] Comment on above: Performed By: #### L 500.4050, L300.3900, L100.0100, L300.4310 ####[facility] [address] [place], [address] Eosinophil percentageOrdered By: Bria Gan on 04-16-2025 Eosinophils/100 WBC (Bld) 3.1 % 0-5 [facility] Immature granulocytes/100 WB C Auto (Bld)Ordered By: Bria Gan on 04-16-2025 Immature granulocytes/100 WBC (Bld) 0.200 % 0.0-0.9 [facility] Comment on above: IG% - Immature Granu locytes (promyelocytes, myelocytes and metamyelocytes) > 1% indicates that a LEFT SHIFT is Present. International normalized rat io (INR) calculationOrdered By: Bria Gan on 04-16-2025 INR Coag (Bld) [Relative time] 0.9 {INR} [facility] Laboratory - Chemistry and C hemistry - challengeOrdered By: Bria Gan on 04-16-2025 AST [Catalytic activity/Vol] 21 U/L <32 [facility] MR/PAT.ANEon 04-16-2025 MR/PAT.ANE Normal [facility] Monocyte percentageOrdered B y: Bria Gan on 04-16-2025 Monocytes/100 WBC (Bld) 8.4 % 0-10 [facility] Neutrophil percentageOrdered By: Bria Gan on 04-16-2025 Neutrophils/100 WBC (Bld) 70.6 % High 47-70 [facility] No Panel InformationOrdered By: Bria Gan on 04-16-2025 21 U/L <32 [facility] Nucleated red blood cell per centageOrdered By: Bria Gan on 04-16-2025 Nucleated RBC/100 WBC (Bld) [Ratio] 0 % 0-5 [facility] Partial Thromboplast Timeon 04-16-2025 aPTT Coag (Bld) [Time] 27.1 s Normal 24.1-36.2 [facility] Comment on above: Performed By: #### L 500.4050, L300.3900, L100.0100, L300.4310 ####[facility] [address] [place], [address] Prothrombin Time w/INRon INR Coag (PPP) [Relative time] 0.9 {INR} Normal [facility] Comment on above: Performed By: #### L 500.4050, L300.3900, L100.0100, L300.4310 ####[facility] [address] [place], [address] PT Coag (PPP) [Time] 12.2 s Normal 11.7-14.9 [facility] Comment on above: Performed By: #### L 500.4050, L300.3900, L100.0100, L300.4310 ####[facility] [address] [place], [address] Prothrombin timeOrdered By: Bria Gan on 04-16-2025 PT Coag (PPP) [Time] 12.2 s 11.7-14.9 [facility] Serum globulin measurementOr dered By: Bria Gan on 04-16-2025 Globulin (S) [Mass/Vol] 3.7 g/dL 2.2-4.2 [facility] Serum or plasma alanine lake otransferase (ALT) measurementOrdered By: Bria Gan on 04-16-2025 ALT [Catalytic activity/Vol] 13 U/L <35 [facility] Serum or plasma albumin aury urement (mass/volume)Ordered By: Bria Gan on 04-16-2025 Albumin [Mass/Vol] 4.6 g/dL 3.4-4.8 [facility] Serum or plasma albumin/glob ulin mass ratioOrdered By: Bria Gan on 04-16-2025 Albumin/Globulin [Mass ratio] 1.2 {ratio} 0.9-2.4 [facility] Serum or plasma alkaline frances sphatase measurementOrdered By: Bria Gan on 04-16-2025 ALP [Catalytic activity/Vol] 109 U/L High 35-104 [facility] Total proteinOrdered By: Jason Gan on 04-16-2025 Protein [Mass/Vol] 8.3 g/dL 5.9-8.4 [facility] L3410.9992on 04-11-2025 [facility] Misc. COMMENT Normal . [facility] Comment on above: Order Comment: 70900 1ANTI RNA POLY3 RDL SERUM FRZ Result Comment: Test Ordered: [id number] Anti-RNA Polymerase III (RDL)Anti-RNA Polymerase III (RDL) <20 Units [facility] Reference Range: <20 Negative: <20 Weak Positive: 20 - 39 Moderate Positive: 40 - 80 Strong Positive: >80Performed at: [facility] [address] [id number] Director: Latrell Damon MD, Phone: [phone] at: [address] [id number] Director: Eros Rosales PhD, Phone: [phone] Performed By: #### L 100.0100, L3410.2000, L3100.9100, L101.9900, L3100.8408, L3100.5700, L3100.5800, L3100.5500, L3410.9992, L501.4405, L400.0001, L4600.0100, L501.1000, L505.7010, L501.1105, L501.4100, L3410.0700, L3100.5475, L501.6710 ####[facility] [address] [place], [place], [address] L3410.9992on 04-05-2025 [facility]. COMMENT Normal . [facility] Comment on above: Order Comment: [id number] 5ANTICENTROMERE AB SERUM FRZ Result Comment: Test Ordered: 278996 Anti-Centromere Ab by IFA(RDL)Anti-Centromere Ab by IFA(RDL) <1:40 [facility] Reference Range: <1:40Performed at: [facility] [address] [id number] Director: Latrell Damon MD, Phone: [phone] at: [address] [id number] Director: Eros Rosales PhD, Phone: [phone] Performed By: #### L 3410.9992 ####[facility] [address] [place], [address] ANTINUCLEAR ANTIBODIES DIREC Ton 04-03-2025 QUITA,DIRECT Negative Normal Negative [facility] Comment on above: Result Comment: Perf ormed at: [address] [id number] Director: Eros Rosales PhD, Phone: [phone] Performed By: #### L 100.0100, L3410.2000, L3100.9100, L101.9900, L3100.8408, L3100.5700, L3100.5800, L3100.5500, L3410.9992, L501.4405, L400.0001, L4600.0100, L501.1000, L505.7010, L501.1105, L501.4100, L3410.0700, L3100.5475, L501.6710 ####[facility] [address] [place], [address] [address] [facility] ANTISCLERODERM <0.2 Normal 0.0-0.9 [facility] Comment on above: Result Comment: AMENDED REPORT 04/03/25 1108 ANTISCLER previously reported as: Test not performed Performed By: #### L 100.0100, L3410.2000, L3100.9100, L101.9900, L3100.8408, L3100.5700, L3100.5800, L3100.5500, L3410.9992, L501.4405, L400.0001, L4600.0100, L501.1000, L505.7010, L501.1105, L501.4100, L3410.0700, L3100.5475, L501.6710 ####[facility] [address] [place], [address] Anti-dsDNA [facility] 04-03-2025 ANTI-DNA (DS)AB <1 Normal 0-9 [facility] Comment on above: Result Comment: Nega tive <5 Equivocal 5 - 9 Positive >9 Performed By: #### L 100.0100, L3410.2000, L3100.9100, L101.9900, L3100.8408, L3100.5700, L3100.5800, L3100.5500, L3410.9992, L501.4405, L400.0001, L4600.0100, L501.1000, L505.7010, L501.1105, L501.4100, L3410.0700, L3100.5475, L501.6710 ####[facility] [address] [place], [place], [address] Anticardiolipin IgA,G,Mon ANTICARDIO IgA > 150 High 0-11 [facility] Comment on above: Result Comment: Nega tive: <12 Indeterminate: 12 - 20 Low-Med Positive: >20 - 80 High Positive: >80 Performed By: #### L 100.0100, L3410.2000, L3100.9100, L101.9900, L3100.8408, L3100.5700, L3100.5800, L3100.5500, L3410.9992, L501.4405, L400.0001, L4600.0100, L501.1000, L505.7010, L501.1105, L501.4100, L3410.0700, L3100.5475, L501.6710 ####[facility] [address] [place], [place], [address] ANTICARDIO IgG 13 GPL U/mL Normal 0-14 [facility] Comment on above: Result Comment: Nega tive: <15 Indeterminate: 15 - 20 Low-Med Positive: >20 - 80 High Positive: >80 Performed By: #### L 100.0100, L3410.2000, L3100.9100, L101.9900, L3100.8408, L3100.5700, L3100.5800, L3100.5500, L3410.9992, L501.4405, L400.0001, L4600.0100, L501.1000, L505.7010, L501.1105, L501.4100, L3410.0700, L3100.5475, L501.6710 ####[facility] [address] [place], [place], [address] Anticardio.IgM 29 MPL U/mL High 0-12 [facility] Comment on above: Result Comment: Nega tive: <13 Indeterminate: 13 - 20 Low-Med Positive: >20 - 80 High Positive: >80 Performed By: #### L 100.0100, L3410.2000, L3100.9100, L101.9900, L3100.8408, L3100.5700, L3100.5800, L3100.5500, L3410.9992, L501.4405, L400.0001, L4600.0100, L501.1000, L505.7010, L501.1105, L501.4100, L3410.0700, L3100.5475, L501.6710 ####[facility] [address] [place], [place], [address] Beta-2 Glycoprot IgG, A, 04-03-2025 B2 GLYCO I IGA <9 Normal 0-25 [facility] Comment on above: Result Comment: Resu lt [...] L501.1000, L505.7010, L501.1105, L501.4100, L3410.0700, L3100.5475, L501.6710 ####[facility] [address] [facility]. [place], [place], [address] B2 GLYCO I IGG <9 Normal 0-20 [facility] Comment on above: Result Comment: Resu lt [...] L501.1000, L505.7010, L501.1105, L501.4100, L3410.0700, L3100.5475, L501.6710 ####[facility] [address] [facility] [place], [place], [address] B2 GLYCO I IGM <9 Normal 0-32 [facility] Comment on above: Result Comment: Resu lt [...] L501.1000, L505.7010, L501.1105, L501.4100, L3410.0700, L3100.5475, L501.6710 ####[facility] [address] [facility] [place], [address] CCP IgG Antibodieson 025 CCP IgG Ab. 9 units Normal 0-19 [facility] Comment on above: Result Comment: Nega tive <20 Weak positive 20 - 39 Moderate positive 40 - 59 Strong positive >59Performed at: [facility] [address] [place], [place] [id number] Director: Eros Rosales PhD, Phone: [phone] Performed By: #### L 100.0100, L3410.2000, L3100.9100, L101.9900, L3100.8408, L3100.5700, L3100.5800, L3100.5500, L3410.9992, L501.4405, L400.0001, L4600.0100, L501.1000, L505.7010, L501.1105, L501.4100, L3410.0700, L3100.5475, L501.6710 ####[facility] [address] [place], [place], [address] Complement C3on 04-03-2025 COMP C3 141 mg/dL Normal 82-167 [facility] Comment on above: Performed By: #### L 100.0100, L3410.2000, L3100.9100, L101.9900, L3100.8408, L3100.5700, L3100.5800, L3100.5500, L3410.9992, L501.4405, L400.0001, L4600.0100, L501.1000, L505.7010, L501.1105, L501.4100, L3410.0700, L3100.5475, L501.6710 ####[facility] [address] [place], [place], [address] Complement C4on 04-03-2025 COMPLEMENT, C4 22 mg/dL Normal 12-38 [facility] Comment on above: Performed By: #### L 100.0100, L3410.2000, L3100.9100, L101.9900, L3100.8408, L3100.5700, L3100.5800, L3100.5500, L3410.9992, L501.4405, L400.0001, L4600.0100, L501.1000, L505.7010, L501.1105, L501.4100, L3410.0700, L3100.5475, L501.6710 ####[facility] [address] [facility] [place], [place], [address] Sjogren's Antibodies A/Bon 0 - ANTI-SS-A < 0.2 Normal 0.0-0.9 [facility] Comment on above: Result Comment: AMENDED REPORT 04/03/251107 Anti-SS-A previously reported as: Test not performed Performed By: #### L 100.0100, L3410.2000, L3100.9100, L101.9900, L3100.8408, L3100.5700, L3100.5800, L3100.5500, L3410.9992, L501.4405, L400.0001, L4600.0100, L501.1000, L505.7010, L501.1105, L501.4100, L3410.0700, L3100.5475, L501.6710 ####[facility] [address] [place], [place], [address] ANTI-SS-B < 0.2 Normal 0.0-0.9 [facility] Comment on above: Result Comment: AMENDED REPORT 04/03/251107 Anti-SS-B previously reported as: Test not performed Performed By: #### L 100.0100, L3410.2000, L3100.9100, L101.9900, L3100.8408, L3100.5700, L3100.5800, L3100.5500, L3410.9992, L501.4405, L400.0001, L4600.0100, L501.1000, L505.7010, L501.1105, L501.4100, L3410.0700, L3100.5475, L501.6710 ####[facility] [address] [place], [address] AST(SGOT)on 04-02-2025 AST [Catalytic activity/Vol] 19 U/L Normal <=31 [facility] Comment on above: Performed By: #### L 100.0100, L3410.2000, L3100.9100, L101.9900, L3100.8408, L3100.5700, L3100.5800, L3100.5500, L3410.9992, L501.4405, L400.0001, L4600.0100, L501.1000, L505.7010, L501.1105, L501.4100, L3410.0700, L3100.5475, L501.6710 ####[facility] [address] [place], [place], [address] Absolute lymphocyte countOrd ered By: FIGUEROA JENKINS on 04-02-2025 Lymphocytes Auto (Unsp spec) [#/Vol] 1.21 10*3/uL 0.83-4.51 [facility] Absolute neutrophil countOrd ered By: FIGUEROA JENKINS on 04-02-2025 Neutrophils (Bld) [#/Vol] 6.0 10*3/uL 2.0-7.7 [facility] Alanine Aminotransferas (SGP T)on 04-02-2025 ALT [Catalytic activity/Vol] 13 U/L Normal <=34 [facility] Comment on above: Performed By: #### L 100.0100, L3410.2000, L3100.9100, L101.9900, L3100.8408, L3100.5700, L3100.5800, L3100.5500, L3410.9992, L501.4405, L400.0001, L4600.0100, L501.1000, L505.7010, L501.1105, L501.4100, L3410.0700, L3100.5475, L501.6710 ####[facility] [address] [place], [place], [address] Automated lymphocyte count a s percentage of total leukocytesOrdered By: FIGUEROA JENKINS on 04-02-2025 Lymphocytes/100 WBC Auto (Unsp spec) 14.8 % Low 19-41 [facility] BUNon 04-02-2025 Urea nitrogen [Mass/Vol] 16 mg/dL Normal 4-19 [facility] Comment on above: Performed By: #### L 100.0100, L3410.2000, L3100.9100, L101.9900, L3100.8408, L3100.5700, L3100.5800, L3100.5500, L3410.9992, L501.4405, L400.0001, L4600.0100, L501.1000, L505.7010, L501.1105, L501.4100, L3410.0700, L3100.5475, L501.6710 ####[facility] [address] [place], [place], [address] Basophil percentageOrdered B y: FIGUEROA JENKINS on 04-02-2025 Basophils/100 WBC (Bld) 1.0 % 0-1 [facility] Bilirubin Test strip Ql (U)O rdered By: FIGUEROA JENKINS on 04-02-2025 Bilirubin Ql (U) Negative Negative [facility] CBC W/Diff, Automatedon Absolute Lymph 1.21 X10 3/uL Normal 0.83-4.51 [facility] Comment on above: Performed By: #### L 100.0100, L3410.2000, L3100.9100, L101.9900, L3100.8408, L3100.5700, L3100.5800, L3100.5500, L3410.9992, L501.4405, L400.0001, L4600.0100, L501.1000, L505.7010, L501.1105, L501.4100, L3410.0700, L3100.5475, L501.6710 ####[facility] [address] [place], [place], [address] Absolute Neut 6.0 X10 3/uL Normal 2.0-7.7 [facility] Comment on above: Performed By: #### L 100.0100, L3410.2000, L3100.9100, L101.9900, L3100.8408, L3100.5700, L3100.5800, L3100.5500, L3410.9992, L501.4405, L400.0001, L4600.0100, L501.1000, L505.7010, L501.1105, L501.4100, L3410.0700, L3100.5475, L501.6710 ####[facility] [address] [place], [address] Basophils/100 WBC (Bld) 1.0 % Normal 0-1 [facility] Comment on above: Performed By: #### L 100.0100, L3410.2000, L3100.9100, L101.9900, L3100.8408, L3100.5700, L3100.5800, L3100.5500, L3410.9992, L501.4405, L400.0001, L4600.0100, L501.1000, L505.7010, L501.1105, L501.4100, L3410.0700, L3100.5475, L501.6710 ####[facility] [address] [place], [address] Eosinophils/100 WBC (Bld) 2.8 % Normal 0-5 [facility] Comment on above: Performed By: #### L 100.0100, L3410.2000, L3100.9100, L101.9900, L3100.8408, L3100.5700, L3100.5800, L3100.5500, L3410.9992, L501.4405, L400.0001, L4600.0100, L501.1000, L505.7010, L501.1105, L501.4100, L3410.0700, L3100.5475, L501.6710 ####[facility] [address] [facility]. [place], [place], [address] Erythrocyte distribution width (RBC) [Ratio] 14.2 % Normal 11.6-14.6 [facility] Comment on above: Performed By: #### L 100.0100, L3410.2000, L3100.9100, L101.9900, L3100.8408, L3100.5700, L3100.5800, L3100.5500, L3410.9992, L501.4405, L400.0001, L4600.0100, L501.1000, L505.7010, L501.1105, L501.4100, L3410.0700, L3100.5475, L501.6710 ####[facility] [address] [facility] [place], [place], [address] Hematocrit (Bld) [Volume fraction] 40.0 % Normal 37-47 [facility] Comment on above: Performed By: #### L 100.0100, L3410.2000, L3100.9100, L101.9900, L3100.8408, L3100.5700, L3100.5800, L3100.5500, L3410.9992, L501.4405, L400.0001, L4600.0100, L501.1000, L505.7010, L501.1105, L501.4100, L3410.0700, L3100.5475, L501.6710 ####[facility] [address] [facility]. [place], [place], [address] Hemoglobin (Bld) [Mass/Vol] 13.0 g/dL Normal 12.0-15.0 [facility] Comment on above: Performed By: #### L 100.0100, L3410.2000, L3100.9100, L101.9900, L3100.8408, L3100.5700, L3100.5800, L3100.5500, L3410.9992, L501.4405, L400.0001, L4600.0100, L501.1000, L505.7010, L501.1105, L501.4100, L3410.0700, L3100.5475, L501.6710 ####[facility] [address] [facility] [place], [address] IG% 0.400 Normal 0.0-0.9 [facility] Comment on above: Result Comment: IG% - Immature Granulocytes (promyelocytes, myelocytes andmetamyelocytes) > 1% indicates that a LEFT SHIFT is Present. Performed By: #### L 100.0100, L3410.2000, L3100.9100, L101.9900, L3100.8408, L3100.5700, L3100.5800, L3100.5500, L3410.9992, L501.4405, L400.0001, L4600.0100, L501.1000, L505.7010, L501.1105, L501.4100, L3410.0700, L3100.5475, L501.6710 ####[facility] [address] [facility] [place], [address] Lymphocytes/100 WBC (Bld) 14.8 % Low 19-41 [facility] Comment on above: Performed By: #### L 100.0100, L3410.2000, L3100.9100, L101.9900, L3100.8408, L3100.5700, L3100.5800, L3100.5500, L3410.9992, L501.4405, L400.0001, L4600.0100, L501.1000, L505.7010, L501.1105, L501.4100, L3410.0700, L3100.5475, L501.6710 ####[facility] [address] [facility] [place], [address] MCH (RBC) [Entitic mass] 28.5 pg Normal 27.0-32.0 [facility] Comment on above: Performed By: #### L 100.0100, L3410.2000, L3100.9100, L101.9900, L3100.8408, L3100.5700, L3100.5800, L3100.5500, L3410.9992, L501.4405, L400.0001, L4600.0100, L501.1000, L505.7010, L501.1105, L501.4100, L3410.0700, L3100.5475, L501.6710 ####[facility] [address] [place], [place], [id number] MCHC (RBC) [Mass/Vol] 32.5 g/dL Normal 32-[address] [facility] Comment on above: Performed By: #### L 100.0100, L3410.2000, L3100.9100, L101.9900, L3100.8408, L3100.5700, L3100.5800, L3100.5500, L3410.9992, L501.4405, L400.0001, L4600.0100, L501.1000, L505.7010, L501.1105, L501.4100, L3410.0700, L3100.5475, L501.6710 ####[facility] [address] [place], [place], [id number] MCV (RBC) [Entitic vol] 87.7 fL Normal 81-99 [facility] Comment on above: Performed By: #### L 100.0100, L3410.2000, L3100.9100, L101.9900, L3100.8408, L3100.5700, L3100.5800, L3100.5500, L3410.9992, L501.4405, L400.0001, L4600.0100, L501.1000, L505.7010, L501.1105, L501.4100, L3410.0700, L3100.5475, L501.6710 ####[facility] [address] [place], [place], [phone] Monocytes/100 WBC (Bld) 7.8 % Normal 0-10 [facility] Comment on above: Performed By: #### L 100.0100, L3410.2000, L3100.9100, L101.9900, L3100.8408, L3100.5700, L3100.5800, L3100.5500, L3410.9992, L501.4405, L400.0001, L4600.0100, L501.1000, L505.7010, L501.1105, L501.4100, L3410.0700, L3100.5475, L501.6710 ####[facility] [address] [place], [place], [phone](116) Neutrophils/100 WBC (Bld) 73.2 % High 47-70 [facility] Comment on above: Performed By: #### L 100.0100, L3410.2000, L3100.9100, L101.9900, L3100.8408, L3100.5700, L3100.5800, L3100.5500, L3410.9992, L501.4405, L400.0001, L4600.0100, L501.1000, L505.7010, L501.1105, L501.4100, L3410.0700, L3100.5475, L501.6710 ####[facility] [address] [place], [place], [phone] Nucleated RBC (Bld) [#/Vol] 0 10*3/uL Normal 0-5 [facility] Comment on above: Performed By: #### L 100.0100, L3410.2000, L3100.9100, L101.9900, L3100.8408, L3100.5700, L3100.5800, L3100.5500, L3410.9992, L501.4405, L400.0001, L4600.0100, L501.1000, L505.7010, L501.1105, L501.4100, L3410.0700, L3100.5475, L501.6710 ####[facility] [address] [facility] [place], [place], [phone](614) Platelet mean volume (Bld) [Entitic vol] 10.4 fL Normal 6.2-12.0 [facility] Comment on above: Performed By: #### L 100.0100, L3410.2000, L3100.9100, L101.9900, L3100.8408, L3100.5700, L3100.5800, L3100.5500, L3410.9992, L501.4405, L400.0001, L4600.0100, L501.1000, L505.7010, L501.1105, L501.4100, L3410.0700, L3100.5475, L501.6710 ####[facility] [address] [facility]. [place], [place], [phone](529) Platelets (Bld) [#/Vol] 259 10*3/uL Normal 150-450 [facility] Comment on above: Performed By: #### L 100.0100, L3410.2000, L3100.9100, L101.9900, L3100.8408, L3100.5700, L3100.5800, L3100.5500, L3410.9992, L501.4405, L400.0001, L4600.0100, L501.1000, L505.7010, L501.1105, L501.4100, L3410.0700, L3100.5475, L501.6710 ####[facility] [address] [facility]. [place], [place], [phone](976) RBC (Bld) [#/Vol] 4.56 10*6/uL Normal 4.2-5.4 [facility] Comment on above: Performed By: #### L 100.0100, L3410.2000, L3100.9100, L101.9900, L3100.8408, L3100.5700, L3100.5800, L3100.5500, L3410.9992, L501.4405, L400.0001, L4600.0100, L501.1000, L505.7010, L501.1105, L501.4100, L3410.0700, L3100.5475, L501.6710 ####[facility] [address] [facility] [place], [address] RDW SD 45.3 fl High 35.1-43.9 [facility] Comment on above: Performed By: #### L 100.0100, L3410.2000, L3100.9100, L101.9900, L3100.8408, L3100.5700, L3100.5800, L3100.5500, L3410.9992, L501.4405, L400.0001, L4600.0100, L501.1000, L505.7010, L501.1105, L501.4100, L3410.0700, L3100.5475, L501.6710 ####[facility] [address] [facility] [place], [address] WBC (Bld) [#/Vol] 8.2 10*3/uL Normal 4.4-11.0 [facility] Comment on above: Performed By: #### L 100.0100, L3410.2000, L3100.9100, L101.9900, L3100.8408, L3100.5700, L3100.5800, L3100.5500, L3410.9992, L501.4405, L400.0001, L4600.0100, L501.1000, L505.7010, L501.1105, L501.4100, L3410.0700, L3100.5475, L501.6710 ####[facility] [address] [facility] [place], [address] CRPon 04-02-2025 C-REACTIVE PROT < 3.00 Normal 0.0-3.0 [facility] Comment on above: Performed By: #### L 100.0100, L3410.2000, L3100.9100, L101.9900, L3100.8408, L3100.5700, L3100.5800, L3100.5500, L3410.9992, L501.4405, L400.0001, L4600.0100, L501.1000, L505.7010, L501.1105, L501.4100, L3410.0700, L3100.5475, L501.6710 ####[facility] [address] [facility] [place], [place], [phone] Eosinophil percentageOrdered By: FIGUEROA JENKINS on 04-02-2025 Eosinophils/100 WBC (Bld) 2.8 % 0-5 [facility] Erythrocyte Sed Rateon 04-02 SED RATE 23 mm/hr Normal 0-30 [facility] Comment on above: Performed By: #### L 100.0100, L3410.2000, L3100.9100, L101.9900, L3100.8408, L3100.5700, L3100.5800, L3100.5500, L3410.9992, L501.4405, L400.0001, L4600.0100, L501.1000, L505.7010, L501.1105, L501.4100, L3410.0700, L3100.5475, L501.6710 ####[facility] [address] [facility]. [place], [place], [phone] Erythrocyte distribution wid th ratioOrdered By: FIGUEROA JENKINS on 04-02-2025 Erythrocyte distribution width (RBC) [Ratio] 14.2 % 11.6-14.6 [facility] Erythrocyte distribution wid th standard deviationOrdered By: FIGUEROA JENKINS on 04-02-2025 Erythrocyte distribution width (RBC) [Ratio] 45.3 fl High 35.1-43.9 [facility] Erythrocyte sedimentation ra teOrdered By: FIGUEROA JENKINS on 04-02-2025 ESR (Bld) [Velocity] 23 mm/h 0-30 [facility] Glomerular filtration rate ( GFR) estimation/1.73 sq m using serum, plasma, or whole bOrdered By: FIGUEROA JENKINS on 04-02-2025 GFR/1.73 sq M.predicted among non-blacks MDRD (S/P/Bld) [Vol rate/Area] 77 mL/min/{1.73_m2} >60 [facility] Comment on above: mL/min/1.73m2 CKD-EP I Creatinine Equation (2020) Hand Min 3 Viewson Hand Min 3 Views Normal [facility] Hand Min 3 Views Normal [facility] Hematocrit Auto (Bld) [Volum e fraction]Ordered By: FIGUEROA JENKINS on 04-02-2025 Hematocrit (Bld) [Volume fraction] 40.0 % 37-47 [facility] Hemoglobin measurementOrdere d By: FIGUEROA JENKINS on 04-02-2025 Hemoglobin (Bld) [Mass/Vol] 13.0 g/dL 12.0-15.0 [facility] Immature granulocytes/100 WB C Auto (Bld)Ordered By: FIGUEROA JENKINS on 04-02-2025 Immature granulocytes/100 WBC (Bld) 0.400 % 0.0-0.9 [facility] Comment on above: IG% - Immature Granu locytes (promyelocytes, myelocytes and metamyelocytes) > 1% indicates that a LEFT SHIFT is Present. Ketones Test strip Ql (U)Ord ered By: FIGUEROA JENKINS on 04-02-2025 Ketones Ql (U) Negative Negative [facility] Laboratory - Chemistry and C hemistry - challengeOrdered By: FIGUEROA JENKINS on 04-02-2025 AST [Catalytic activity/Vol] 19 U/L <32 [facility] MCV (mean corpuscular volume ) determinationOrdered By: FIGUEROA JENKINS on 04-02-2025 MCV (RBC) [Entitic vol] 87.7 fL 81-99 [facility] Mean corpuscular hemoglobin (MCH) determinationOrdered By: FIGUEROA JENKINS on 04-02-2025 MCH (RBC) [Entitic mass] 28.5 pg 27.0-32.0 [facility] Mean corpuscular hemoglobin concentration (MCHC) determinationOrdered By: FIGUEROA JENKINS on 04-02-2025 MCHC (RBC) [Mass/Vol] 32.5 g/dL 32-[address] [facility] Mean platelet volume determi nationOrdered By: FIGUEROA JENKINS on 04-02-2025 Platelet mean volume (Bld) [Entitic vol] 10.4 fL 6.2-12.0 [facility] Microscopic analysis of urin e for red blood cells (RBC)Ordered By: FIGUEROA JENKINS on 04-02-2025 Microscopic analysis of urine for red blood cells (RBC) 0-5 SEEN /hpf 0-5 [facility] Monocyte percentageOrdered B y: FIGUEROA JENKINS on 04-02-2025 Monocytes/100 WBC (Bld) 7.8 % 0-10 [facility] Mucus LM Ql (Urine sed)Order ed By: FIGUEROA JENKINS on 04-02-2025 Mucus Ql (Urine sed) 0 SEEN /hpf [facility] Neutrophil percentageOrdered By: FIGUEROA JENKINS on 04-02-2025 Neutrophils/100 WBC (Bld) 73.2 % High 47-70 [facility] Nitrite Test strip Ql (U)Ord ered By: FIGUEROA JENKINS on 04-02-2025 Nitrite Ql (U) Negative Negative [facility] No Panel InformationOrdered By: FIGUEROA JENKINS on 04-02-2025 19 U/L <32 [facility] Nucleated red blood cell per centageOrdered By: FIGUEROA JENKINS on 04-02-2025 Nucleated RBC/100 WBC (Bld) [Ratio] 0 % 0-5 [facility] Platelet countOrdered By: RA CHUCK JENKINS on 04-02-2025 Platelets (Bld) [#/Vol] 259 10*3/uL 150-450 [facility] Protein Test strip Ql (U)Ord ered By: FIGUEROA JENKINS on 04-02-2025 Protein Ql (U) 15 mg/dl High Negative [facility] Pulmonary Visit Reporton Pulmonary Visit Report Normal [facility] RBC Auto (Bld) [#/Vol]Ordere d By: FIGUEROA JENKINS on 04-02-2025 RBC (Bld) [#/Vol] 4.56 10*6/uL 4.2-5.4 [facility] Rheumatoid Factoron 04-02-20 25 RHEUMATOID FAC < 10.0 Normal <15 [facility] Comment on above: Performed By: #### L 100.0100, L3410.2000, L3100.9100, L101.9900, L3100.8408, L3100.5700, L3100.5800, L3100.5500, L3410.9992, L501.4405, L400.0001, L4600.0100, L501.1000, L505.7010, L501.1105, L501.4100, L3410.0700, L3100.5475, L501.6710 ####[facility] [address] [place], [place], [phone] Serum Creatinine AND GFRon 0 - Creatinine [Mass/Vol] 0.81 mg/dL Normal 0.70-1.[address] [facility] Comment on above: Performed By: #### L 100.0100, L3410.2000, L3100.9100, L101.9900, L3100.8408, L3100.5700, L3100.5800, L3100.5500, L3410.9992, L501.4405, L400.0001, L4600.0100, L501.1000, L505.7010, L501.1105, L501.4100, L3410.0700, L3100.5475, L501.6710 ####[facility] [address] [place], [place], [phone] GFR/1.73 sq M.predicted among non-blacks MDRD (S/P/Bld) [Vol rate/Area] 77 mL/min/{1.73_m2} Normal >60 [facility] Comment on above: Result Comment: mL/m in/1.73m2 CKD-EPI Creatinine Equation (2020) Performed By: #### L 100.0100, L3410.2000, L3100.9100, L101.9900, L3100.8408, L3100.5700, L3100.5800, L3100.5500, L3410.9992, L501.4405, L400.0001, L4600.0100, L501.1000, L505.7010, L501.1105, L501.4100, L3410.0700, L3100.5475, L501.6710 ####[facility] [address] [place], [address] Serum DNA double strand anti body assay (units/volume)Ordered By: FIGUEROA JENKINS on 04-02-2025 DNA double strand Ab Qn (S) [IU]/mL 0-9 [facility] Comment on above: Negative <5 Equivoca l 5 - 9 Positive >9 Serum Scl-70 antibody assay (units/volume)Ordered By: FIGUEROA JENKINS on 04-02-2025 SCL-70 extractable nuclear Ab Qn (S) <0.2 AI 0.0-0.9 [facility] Comment on above: Previous reported re sult: TNP AIEdited by: JODY on 04/03/25:1108 AMENDED REPORT 04/03/25 1108 ANTISCLER previously reported as: Test not performed Serum beta 2 glycoprotein 1 IgA antibody detectionOrdered By: FIGUEROA JENKINS on 04-02-2025 Beta 2 glycoprotein 1 IgA Ql (S) <9 0-25 [facility] Comment on above: Result Units: GPI Ig [...] glycoprotein 1 IgG Ql (S) <9 0-20 [facility] Comment on above: Result Units: GPI Ig [...] glycoprotein 1 IgM Ql (S) <9 0-32 [facility] Comment on above: Result Units: GPI Ig [...] IA Qn (S) 13 GPL U/mL 0-14 [facility] Comment on above: Negative: <15 Indete rminate: 15 - 20 Low-Med Positive: >20 - 80 High Positive: >80 Serum creatinine measurement (mass/volume)Ordered By: FIGUEROA JENKINS on 04-02-2025 Creatinine [Mass/Vol] 0.81 mg/dL 0.70-1.[address] [facility] Serum or plasma C reactive p rotein measurement (mass/volume)Ordered By: FIGUEROA JENKINS on 04-02-2025 CRP [Mass/Vol] mg/L 0.0-3.0 [facility] Serum or plasma alanine lake otransferase (ALT) measurementOrdered By: FIGUEROA JENKINS on 04-02-2025 ALT [Catalytic activity/Vol] 13 U/L <35 [facility] Serum or plasma cardiolipin IgA antibody assay (units/volume)Ordered By: FIGUEROA JENKINS on 04-02-2025 Cardiolipin IgA Qn > 150 APL U/mL High 0-11 [facility] Comment on above: Negative: <12 Indete rminate: 12 - 20 Low-Med Positive: >20 - 80 High Positive: >80 Serum or plasma complement C 4 measurement (mass/volume)Ordered By: FIGUEROA JENKINS on 04-02-2025 Complement C4 [Mass/Vol] 22 mg/dL 12-38 [facility] Serum or plasma cyclic citru llinated peptide IgG antibody assay (units/volume)Ordered By: FIGUEROA JENKINS on 04-02-2025 Cyclic citrullinated peptide IgG Qn 9 units 0-19 [facility] Comment on above: Negative <20 Weak po sitive 20 - 39 Moderate positive 40 - 59 Strong positive >59Performed at: CB - [facility] [address] [place], [place] [id number] Director: Eros Rosales PhD, Phone: [phone] Serum or plasma urea nitroge n measurement (mass/volume)Ordered By: FIGUEROA JENKINS on 04-02-2025 Urea nitrogen [Mass/Vol] 16 mg/dL 4-19 [facility] Serum rheumatoid factor dete ctionOrdered By: FIGUEROA JENKINS on 04-02-2025 Rheumatoid factor Ql (S) < 10.0 IU/mL <15 [facility] Squamous epithelial cells de tection in urine sediment by light microscopyOrdered By: FIGUEROA JENKINS on 04-02-2025 Epithelial cells.squamous LM Ql (Urine sed) 0-5 SEEN /hpf - [facility] Urinalysis, Completeon 04-02 EPI,SQUAMOUS 0-5 SEEN Normal 04-07 [facility] Comment on above: Order Comment: Urine , Random Performed By: #### L 100.0100, L3410.2000, L3100.9100, L101.9900, L3100.8408, L3100.5700, L3100.5800, L3100.5500, L3410.9992, L501.4405, L400.0001, L4600.0100, L501.1000, L505.7010, L501.1105, L501.4100, L3410.0700, L3100.5475, L501.6710 ####[facility] [address] [place], [place], [phone] RBC 0-5 SEEN Normal 0-5 [facility] Comment on above: Order Comment: Urine , Random Performed By: #### L 100.0100, L3410.2000, L3100.9100, L101.9900, L3100.8408, L3100.5700, L3100.5800, L3100.5500, L3410.9992, L501.4405, L400.0001, L4600.0100, L501.1000, L505.7010, L501.1105, L501.4100, L3410.0700, L3100.5475, L501.6710 ####[facility] [address] [place], [place], [phone] WBC 0-5 SEEN Normal 0-5 [facility] Comment on above: Order Comment: Urine , Random Performed By: #### L 100.0100, L3410.2000, L3100.9100, L101.9900, L3100.8408, L3100.5700, L3100.5800, L3100.5500, L3410.9992, L501.4405, L400.0001, L4600.0100, L501.1000, L505.7010, L501.1105, L501.4100, L3410.0700, L3100.5475, L501.6710 ####[facility] [address] [place], [place], [phone] BACTERIA 0 SEEN Normal None Seen [facility] Comment on above: Order Comment: Urine , Random Performed By: #### L 100.0100, L3410.2000, L3100.9100, L101.9900, L3100.8408, L3100.5700, L3100.5800, L3100.5500, L3410.9992, L501.4405, L400.0001, L4600.0100, L501.1000, L505.7010, L501.1105, L501.4100, L3410.0700, L3100.5475, L501.6710 ####[facility] [address] [place], [place], [phone] Mucus Ql (Urine sed) 0 SEEN Normal [facility] Comment on above: Order Comment: Urine , Random Performed By: #### L 100.0100, L3410.2000, L3100.9100, L101.9900, L3100.8408, L3100.5700, L3100.5800, L3100.5500, L3410.9992, L501.4405, L400.0001, L4600.0100, L501.1000, L505.7010, L501.1105, L501.4100, L3410.0700, L3100.5475, L501.6710 ####[facility] [address] [place], [address] Urine clarityOrdered By: DANA JENKINS on 04-02-2025 Clarity (U) Clear Clear [facility] Urine color determinationOrd ered By: FIGUEROA JENKINS on 04-02-2025 Color (U) Yellow Yellow [facility] Urine glucose detectionOrder ed By: FIGUEROA JENKINS on 04-02-2025 Glucose Ql (U) Normal mg/dl Normal [facility] Urine leukocyte esterase det ection by dipstickOrdered By: FIGUEROA JENKINS on 04-02-2025 Leukocyte esterase Test strip Ql (U) 25 /ul High Negative [facility] Urine pHOrdered By: FIGUEROA MENDOZA on 04-02-2025 pH (U) 7.0 [pH] 5.0 - 8.0 [facility] Urine sediment bacteria coun t by microscopy (number/high power field)Ordered By: FIGUEROA JENKINS on 04-02-2025 Bacteria LM.HPF (Urine sed) [#/Area] 0 /[HPF] None Seen [facility] Urine specific gravity measu rementOrdered By: FIGUEROA JENKINS on 04-02-2025 Specific gravity (U) [Rel density] 1.015 1.002-1.030 [facility] Urine urobilinogen measureme ntOrdered By: FIGUEROA JENKINS on 04-02-2025 Urobilinogen Ql (U) Normal mg/dl Normal [facility] White blood cell (WBC) count Ordered By: FIGUEROA JENKINS on 04-02-2025 WBC (Bld) [#/Vol] 8.2 10*3/uL 4.4-11.0 [facility] White blood cell countOrdere d By: FIGUEROA JENKINS on 04-02-2025 White blood cell count 0-5 SEEN /hpf 0-5 [facility] Wrist min 3 Viewson 04-02-20 25 Wrist min 3 Views Normal [facility] Basic Metabolic Profile (BMP )on 03-09-2025 Anion Gap Normal 5-15 [facility] Comment on above: Result Comment: Canc elled via OM: Order cancelled - Patient discharged Performed By: #### L 500.2500, L100.0100 ####[facility] [address] [place], [address] BUN Normal 4-19 [facility] Comment on above: Result Comment: Canc elled via OM: Order cancelled - Patient discharged Performed By: #### L 500.2500, L100.0100 ####[facility] [address] [place], [address] BUN/CRE Normal 10-20 [facility] Comment on above: Result Comment: Canc elled via OM: Order cancelled - Patient discharged Performed By: #### L 500.2500, L100.0100 ####[facility] [address] [place], [address] Calcium Normal 7.6-11.0 [facility] Comment on above: Result Comment: Canc elled via OM: Order cancelled - Patient discharged Performed By: #### L 500.2500, L100.0100 ####[facility] [address] [place], [address] Chloride Normal 96-108 [facility] Comment on above: Result Comment: Canc elled via OM: Order cancelled - Patient discharged Performed By: #### L 500.2500, L100.0100 ####[facility] [address] [place], [address] CO2 Normal 22.0-29.0 [facility] Comment on above: Result Comment: Canc elled via OM: Order cancelled - Patient discharged Performed By: #### L 500.2500, L100.0100 ####[facility] [address] [place], [address] CREAT,SERUM Normal 0.70-1.20 [facility] Comment on above: Result Comment: Canc elled via OM: Order cancelled - Patient discharged Performed By: #### L 500.2500, L100.0100 ####[facility] [address] [place], [address] eGFR Normal >60 [facility] Comment on above: Result Comment: Canc elled via OM: Order cancelled - Patient discharged Performed By: #### L 500.2500, L100.0100 ####[facility] [address] [place], [address] GLU Normal 70-99 [facility] Comment on above: Result Comment: Canc elled via OM: Order cancelled - Patient discharged Performed By: #### L 500.2500, L100.0100 ####[facility] [address] [place], [address] Potassium Normal 3.3-5.1 [facility] Comment on above: Result Comment: Canc elled via OM: Order cancelled - Patient discharged Performed By: #### L 500.2500, L100.0100 ####[facility] [address] [place], [address] Sodium Normal 133-145 [facility] Comment on above: Result Comment: Canc elled via OM: Order cancelled - Patient discharged Performed By: #### L 500.2500, L100.0100 ####[facility] [address] [place], [address] CBC W/Diff, Automatedon 04- Absolute Neut Normal 2.0-7.7 [facility] Comment on above: Result Comment: Canc elled via OM: Order cancelled - Patient discharged Performed By: #### L 500.2500, L100.0100 ####[facility] [address] [place], [address] HCT Normal 37-47 [facility] Comment on above: Result Comment: Canc elled via OM: Order cancelled - Patient discharged Performed By: #### L 500.2500, L100.0100 ####[facility] [address] [place], [address] HGB Normal 12.0-15.0 [facility] Comment on above: Result Comment: Canc elled via OM: Order cancelled - Patient discharged Performed By: #### L 500.2500, L100.0100 ####[facility] [address] [place], [address] MCH Normal 27.0-32.0 [facility] Comment on above: Result Comment: Canc elled via OM: Order cancelled - Patient discharged Performed By: #### L 500.2500, L100.0100 ####[facility] [address] [place], [address] MCHC Normal 32-36 [facility] Comment on above: Result Comment: Canc elled via OM: Order cancelled - Patient discharged Performed By: #### L 500.2500, L100.0100 ####[facility] [address] [place], [address] MCV Normal 81-99 [facility] Comment on above: Result Comment: Canc elled via OM: Order cancelled - Patient discharged Performed By: #### L 500.2500, L100.0100 ####[facility] [address] [place], [address] NEUT% Normal 47-70 [facility] Comment on above: Result Comment: Canc elled via OM: Order cancelled - Patient discharged Performed By: #### L 500.2500, L100.0100 ####[facility] [address] [place], [address] PLT Normal 150-450 [facility] Comment on above: Result Comment: Canc elled via OM: Order cancelled - Patient discharged Performed By: #### L 500.2500, L100.0100 ####[facility] [address] [place], [address] RBC Normal 4.2-5.4 [facility] Comment on above: Result Comment: Canc elled via OM: Order cancelled - Patient discharged Performed By: #### L 500.2500, L100.0100 ####[facility] [address] [place], [address] RDW CV Normal 11.6-14.6 [facility] Comment on above: Result Comment: Canc elled via OM: Order cancelled - Patient discharged Performed By: #### L 500.2500, L100.0100 ####[facility] [address] [place], [address] RDW SD Normal 35.1-43.9 [facility] Comment on above: Result Comment: Canc elled via OM: Order cancelled - Patient discharged Performed By: #### L 500.2500, L100.0100 ####[facility] [address] [place], [address] WBC Normal 4.4-11.0 [facility] Comment on above: Result Comment: Canc elled via OM: Order cancelled - Patient discharged Performed By: #### L 500.2500, L100.0100 ####[facility] [address] [place], [address] Basic Metabolic Profile (BMP )on 03-02-2025 Anion Gap Normal 5-15 [facility] Comment on above: Result Comment: Canc elled via OM: Order cancelled - Patient discharged Performed By: #### L 500.2500, L100.0100 ####[facility] [address] [place], [address] BUN Normal 4-19 [facility] Comment on above: Result Comment: Canc elled via OM: Order cancelled - Patient discharged Performed By: #### L 500.2500, L100.0100 ####[facility] [address] [place], [address] BUN/CRE Normal 10-20 [facility] Comment on above: Result Comment: Canc elled via OM: Order cancelled - Patient discharged Performed By: #### L 500.2500, L100.0100 ####[facility] [address] [place], [address] Calcium Normal 7.6-11.0 [facility] [facility] Comment on above: Result Comment: Canc elled via OM: Order cancelled - Patient discharged Performed By: #### L 500.2500, L100.0100 ####[facility] [address] [place], [address] Chloride Normal 96-108 [facility] Comment on above: Result Comment: Canc elled via OM: Order cancelled - Patient discharged Performed By: #### L 500.2500, L100.0100 ####[facility] [address] [place], [address] CO2 Normal 22.0-29.0 [facility] Comment on above: Result Comment: Canc elled via OM: Order cancelled - Patient discharged Performed By: #### L 500.2500, L100.0100 ####[facility] [address] [place], [address] CREAT,SERUM Normal 0.70-1.20 [facility] Comment on above: Result Comment: Canc elled via OM: Order cancelled - Patient discharged Performed By: #### L 500.2500, L100.0100 ####[facility] [address] [place], [address] eGFR Normal >60 [facility] Comment on above: Result Comment: Canc elled via OM: Order cancelled - Patient discharged Performed By: #### L 500.2500, L100.0100 ####[facility] [address] [place], [address] GLU Normal 70-99 [facility] Comment on above: Result Comment: Canc elled via OM: Order cancelled - Patient discharged Performed By: #### L 500.2500, L100.0100 ####[facility] [address] [place], [address] Potassium Normal 3.3-5.1 [facility] Comment on above: Result Comment: Canc elled via OM: Order cancelled - Patient discharged Performed By: #### L 500.2500, L100.0100 ####[facility] [address] [place], [address] Sodium Normal 133-145 [facility] Comment on above: Result Comment: Canc elled via OM: Order cancelled - Patient discharged Performed By: #### L 500.2500, L100.0100 ####[facility] [address] [place], [address] CBC W/Diff, Automatedon 04-0 Absolute Neut Normal 2.0-7.7 [facility] Comment on above: Result Comment: Canc elled via OM: Order cancelled - Patient discharged Performed By: #### L 500.2500, L100.0100 ####[facility] [address] [place], [address] HCT Normal 37-47 [facility] Comment on above: Result Comment: Canc elled via OM: Order cancelled - Patient discharged Performed By: #### L 500.2500, L100.0100 ####[facility] [address] [place], [address] HGB Normal 12.0-15.0 [facility] Comment on above: Result Comment: Canc elled via OM: Order cancelled - Patient discharged Performed By: #### L 500.2500, L100.0100 ####[facility] [address] [place], [address] MCH Normal 27.0-32.0 [facility] Comment on above: Result Comment: Canc elled via OM: Order cancelled - Patient discharged Performed By: #### L 500.2500, L100.0100 ####[facility] [address] [place], [address] MCHC Normal 32-36 [facility] Comment on above: Result Comment: Canc elled via OM: Order cancelled - Patient discharged Performed By: #### L 500.2500, L100.0100 ####[facility] [address] [place], [address] MCV Normal 81-99 [facility] Comment on above: Result Comment: Canc elled via OM: Order cancelled - Patient discharged Performed By: #### L 500.2500, L100.0100 ####[facility] [address] [place], [address] NEUT% Normal 47-70 [facility] Comment on above: Result Comment: Canc elled via OM: Order cancelled - Patient discharged Performed By: #### L 500.2500, L100.0100 ####[facility] [address] [place], [address] PLT Normal 150-450 [facility] Comment on above: Result Comment: Canc elled via OM: Order cancelled - Patient discharged Performed By: #### L 500.2500, L100.0100 ####[facility] [address] [place], [address] RBC Normal 4.2-5.4 [facility] Comment on above: Result Comment: Canc elled via OM: Order cancelled - Patient discharged Performed By: #### L 500.2500, L100.0100 ####[facility] [address] [place], [address] RDW CV Normal 11.6-14.6 [facility] Comment on above: Result Comment: Canc elled via OM: Order cancelled - Patient discharged Performed By: #### L 500.2500, L100.0100 ####[facility] [address] [place], [address] RDW SD Normal 35.1-43.9 [facility] Comment on above: Result Comment: Canc elled via OM: Order cancelled - Patient discharged Performed By: #### L 500.2500, L100.0100 ####[facility] [address] [place], [address] WBC Normal 4.4-11.0 [facility] Comment on above: Result Comment: Canc elled via OM: Order cancelled - Patient discharged Performed By: #### L 500.2500, L100.0100 ####[facility] [address] [place], [address] Venous Duplex US, Unilateral on 02-27-2025 Venous Duplex US, Unilateral Normal [facility] Venous duplex ultrasound rep ortOrdered By: Raymundo Petty on 02-27-2025 US Vein [facility] [address] [place] [address] Venous Duplex US, Unilateral 02/27/25 1333 MR#: [id number] Acct: [id number] Name: EDSON COOK Rep #:[id number] : 1955 69 From: Raymundo Stephens Attending Dr: Cindy Guerrier, PROMOTIONAL 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 Status: REG CLI Ordering Dr: Scott Mcdowell [...] 1629 Date _ Raymundo Petty MD CC: PROMOTIONAL MARKETING AGENT-Shakira Guerrier; Dr. Scott Mcdowell MD ~ Date Dictated: 02/27/25 1333 Date Transcribed: 02/27/25 1629 [employer] Potato Arranger: Signed [facility] Work Phone: Basic Metabolic Profile (BMP )on 02-23-2025 Anion Gap Normal 5-15 [facility] Comment on above: Result Comment: Canc elled via OM: Order cancelled - Patient discharged Performed By: #### L 100.0100, L500.2500 ####[facility] [address] [place], [address] BUN Normal 4-19 [facility] Comment on above: Result Comment: Canc elled via OM: Order cancelled - Patient discharged Performed By: #### L 100.0100, L500.2500 ####[facility] [address] [place], [address] BUN/CRE Normal 10-20 [facility] Comment on above: Result Comment: Canc elled via OM: Order cancelled - Patient discharged Performed By: #### L 100.0100, L500.2500 ####[facility] [address] [place], [address] Calcium Normal 7.6-11.0 [facility] Comment on above: Result Comment: Canc elled via OM: Order cancelled - Patient discharged Performed By: #### L 100.0100, L500.2500 ####[facility] [address] [place], [address] Chloride Normal 96-108 [facility] Comment on above: Result Comment: Canc elled via OM: Order cancelled - Patient discharged Performed By: #### L 100.0100, L500.2500 ####[facility] [address] [place], [address] CO2 Normal 22.0-29.0 [facility] Comment on above: Result Comment: Canc elled via OM: Order cancelled - Patient discharged Performed By: #### L 100.0100, L500.2500 ####[facility] [address] [place], [address] CREAT,SERUM Normal 0.70-1.20 [facility] Comment on above: Result Comment: Canc elled via OM: Order cancelled - Patient discharged Performed By: #### L 100.0100, L500.2500 ####[facility] [address] [place], [address] eGFR Normal >60 [facility] Comment on above: Result Comment: Canc elled via OM: Order cancelled - Patient discharged Performed By: #### L 100.0100, L500.2500 ####[facility] [address] [place], [address] GLU Normal 70-99 [facility] Comment on above: Result Comment: Canc elled via OM: Order cancelled - Patient discharged Performed By: #### L 100.0100, L500.2500 ####[facility] [address] [place], [address] Potassium Normal 3.3-5.1 [facility] Comment on above: Result Comment: Canc elled via OM: Order cancelled - Patient discharged Performed By: #### L 100.0100, L500.2500 ####[facility] [address] [place], [address] Sodium Normal 133-145 [facility] Comment on above: Result Comment: Canc elled via OM: Order cancelled - Patient discharged Performed By: #### L 100.0100, L500.2500 ####[facility] [address] [place], [address] CBC W/Diff, Automatedon - Absolute Neut Normal 2.0-7.7 [facility] Comment on above: Result Comment: Canc elled via OM: Order cancelled - Patient discharged Performed By: #### L 100.0100, L500.2500 ####[facility] [address] [place], [address] HCT Normal 37-47 [facility] Comment on above: Result Comment: Canc elled via OM: Order cancelled - Patient discharged Performed By: #### L 100.0100, L500.2500 ####[facility] [address] [place], [address] HGB Normal 12.0-15.0 [facility] Comment on above: Result Comment: Canc elled via OM: Order cancelled - Patient discharged Performed By: #### L 100.0100, L500.2500 ####[facility] [address] [place], [address] MCH Normal 27.0-32.0 [facility] Comment on above: Result Comment: Canc elled via OM: Order cancelled - Patient discharged Performed By: #### L 100.0100, L500.2500 ####[facility] [address] [place], [address] MCHC Normal 32-36 [facility] Comment on above: Result Comment: Canc elled via OM: Order cancelled - Patient discharged Performed By: #### L 100.0100, L500.2500 ####[facility] [address] [place], [address] MCV Normal 81-99 [facility] Comment on above: Result Comment: Canc elled via OM: Order cancelled - Patient discharged Performed By: #### L 100.0100, L500.2500 ####[facility] [address] [place], [address] NEUT% Normal 47-70 [facility] Comment on above: Result Comment: Canc elled via OM: Order cancelled - Patient discharged Performed By: #### L 100.0100, L500.2500 ####[facility] [address] [place], [address] PLT Normal 150-450 [facility] Comment on above: Result Comment: Canc elled via OM: Order cancelled - Patient discharged Performed By: #### L 100.0100, L500.2500 ####[facility] [address] [place], [address] RBC Normal 4.2-5.4 [facility] Comment on above: Result Comment: Canc elled via OM: Order cancelled - Patient discharged Performed By: #### L 100.0100, L500.2500 ####[facility] [address] [place], [address] RDW CV Normal 11.6-14.6 [facility] Comment on above: Result Comment: Canc elled via OM: Order cancelled - Patient discharged Performed By: #### L 100.0100, L500.2500 ####[facility] [address] [place], [address] RDW SD Normal 35.1-43.9 [facility] Comment on above: Result Comment: Canc elled via OM: Order cancelled - Patient discharged Performed By: #### L 100.0100, L500.2500 ####[facility] [address] [place], [address] WBC Normal 4.4-11.0 [facility] Comment on above: Result Comment: Canc elled via OM: Order cancelled - Patient discharged Performed By: #### L 100.0100, L500.2500 ####[facility] [address] [place], [address] L3410.9998on 02-21-2025 [facility] Misc. COMMENT Normal . [facility] Comment on above: Order Comment: [id number] 5MYOMARKER PROFILE Result Comment: Test Ordered: 306114 MyoMarker 3 Plus Profile (RDL)Test(s) 294819-Eugs-KP-6 Ab (RDL); 788247-Utys-ZJ-18 Ab (RDL); 978972-Ixhy-TT Ab (RDL); 514883-Bcso-PW Ab (RDL); 484884-Dkhk-AJN Ab (RDL); 241866-Kcxx-Dx-8 Ab (RDL); 443553-Grns-HDS-8rxkra Ab (RDL);011758-Kxii-LLK-7 Ab (CADM-140)(RDL); 867330-Xdrv-RLL-4 (P140) Ab (RDL); 236241-Gzoo-NMV4 Ab, IgG (RDL);819666-Gzwm-PE/Scl-100 Ab (RDL); 693846-Hlxq-Kr Ab (RDL);571716-Khix-QO-E 52kD Ab, IgG (RDL); 591938-Uzdm-G4 BUSINESS EDUCATION TEACHER Ab (RDL); 442582-Ugqq-N3 BUSINESS EDUCATION TEACHER (Fibrillarin)(RDL)was developed and its performance characteristicsdetermined by [employer]. It has not been cleared or approvedby the Food and Drug Administration.Anti-Rose-1 Ab (RDL) <20 Units ESECF Reference Range: <20Anti-PL-7 Ab (RDL) Negative ESECF Reference Range: XsmuhyxfXhhf-FV-81 Ab (RDL) Negative [employer]SE[facility] Reference Range: NegativeAnti-EJ Ab (RDL) Negative [facility]SECF Reference Range: NegativeAnti-OJ Ab (RDL) Negative ESECF Reference Range: NegativeAnti-SRP Ab (RDL) Negative ESECF Reference Range: SussctudBdbs-Ul-9 Ab (RDL) Negative ESECF Reference Range: KomxwceiYnuw-RGF-7ytxdd Ab (RDL) <20 Units ESECF Reference Range: <65Mtbx-IVR-1 Ab (CADM-140)(RDL) <20 Units ESECF Reference Range: <42Lrsj-CEX-9 (P140) Ab (RDL) Units ESECF Reference Range: .Test not performed due to an unexpected reagent outage.Please contact your delivery sales worker for moreinformation and further service options.Anti-SAE1 Ab, IgG (RDL) <20 Units ESECF Reference Range: <20Anti-PM/Scl-100 Ab (RDL) <20 Units ESECF Reference Range: <20Anti-Ku Ab (RDL) Negative ESECF Reference Range: ZwveudfmMbyn-AA-S 52kD Ab, IgG (RDL) <20 Units ESECF Reference Range: <20Anti-U1 BUSINESS EDUCATION TEACHER Ab (RDL) <20 Units ESECF Reference Range: <20Anti-U2 BUSINESS EDUCATION TEACHER Ab (RDL) Negative ESECF Reference Range: NegativeAnti-U3 BUSINESS EDUCATION TEACHER (Fibrillarin)(RDL) Negative ESECF Reference Range: Negative Interpretation for Anti-Rose-1, Ihjp-WMI-2fhxlp, Anti-MDA-5, Anti-NXP-2, Anti-SAE1, Anti-PM/Scl-100, Anti-SS-A 52 kD, Anti-U1 BUSINESS EDUCATION TEACHER: Negative: <20 Weak Positive: 20 - 39 Moderate Positive: 40 - 80 Strong Positive: >80Performed at: [facility] - [facility] [address] [place], [place] [id number] Director: Latrell Damon MD, Phone: [phone] at: [id number] [place], [place] [id number] Director: Eros Rosales PhD, Phone: [phone] Performed By: #### L 3410.9998 ####[facility] [address] [place], [address] Basic Metabolic Profile (BMP )on 02-16-2025 Anion Gap Normal 5-15 [facility] Comment on above: Result Comment: Canc elled via OM: Order cancelled - Patient discharged Performed By: #### L 100.0100, L500.2500 ####[facility] [address] [place], [address] BUN Normal 4-19 [facility] Comment on above: Result Comment: Canc elled via OM: Order cancelled - Patient discharged Performed By: #### L 100.0100, L500.2500 ####[facility] [address] [place], [address] BUN/CRE Normal 10-20 [facility] Comment on above: Result Comment: Canc elled via OM: Order cancelled - Patient discharged Performed By: #### L 100.0100, L500.2500 ####[facility] [address] [place], [address] Calcium Normal 7.6-11.0 [facility] Comment on above: Result Comment: Canc elled via OM: Order cancelled - Patient discharged Performed By: #### L 100.0100, L500.2500 ####[facility] [address] [place], [address] Chloride Normal 96-108 [facility] Comment on above: Result Comment: Canc elled via OM: Order cancelled - Patient discharged Performed By: #### L 100.0100, L500.2500 ####[facility] [address] [place], [address] CO2 Normal 22.0-29.0 [facility] Comment on above: Result Comment: Canc elled via OM: Order cancelled - Patient discharged Performed By: #### L 100.0100, L500.2500 ####[facility] [address] [place], [address] CREAT,SERUM Normal 0.70-1.20 [facility] Comment on above: Result Comment: Canc elled via OM: Order cancelled - Patient discharged Performed By: #### L 100.0100, L500.2500 ####[facility] [address] [place], [address] eGFR Normal >60 [facility] Comment on above: Result Comment: Canc elled via OM: Order cancelled - Patient discharged Performed By: #### L 100.0100, L500.2500 ####[facility] [address] [place], [address] GLU Normal 70-99 [facility] Comment on above: Result Comment: Canc elled via OM: Order cancelled - Patient discharged Performed By: #### L 100.0100, L500.2500 ####[facility] [address] [place], [address] Potassium Normal 3.3-5.1 [facility] Comment on above: Result Comment: Canc elled via OM: Order cancelled - Patient discharged Performed By: #### L 100.0100, L500.2500 ####[facility] [address] [place], [address] Sodium Normal 133-145 [facility] Comment on above: Result Comment: Canc elled via OM: Order cancelled - Patient discharged Performed By: #### L 100.0100, L500.2500 ####[facility] [address] [place], [address] CBC W/Diff, Automatedon 03-2 Absolute Neut Normal 2.0-7.7 [facility] Comment on above: Result Comment: Canc elled via OM: Order cancelled - Patient discharged Performed By: #### L 100.0100, L500.2500 ####[facility] [address] [place], [address] HCT Normal 37-47 [facility] Comment on above: Result Comment: Canc elled via OM: Order cancelled - Patient discharged Performed By: #### L 100.0100, L500.2500 ####[facility] [address] [place], [address] HGB Normal 12.0-15.0 [facility] Comment on above: Result Comment: Canc elled via OM: Order cancelled - Patient discharged Performed By: #### L 100.0100, L500.2500 ####[facility] [address] [place], [address] MCH Normal 27.0-32.0 [facility] Comment on above: Result Comment: Canc elled via OM: Order cancelled - Patient discharged Performed By: #### L 100.0100, L500.2500 ####[facility] [address] [place], [address] MCHC Normal 32-36 [facility] Comment on above: Result Comment: Canc elled via OM: Order cancelled - Patient discharged Performed By: #### L 100.0100, L500.2500 ####[facility] [address] [place], [address] MCV Normal 81-99 [facility] Comment on above: Result Comment: Canc elled via OM: Order cancelled - Patient discharged Performed By: #### L 100.0100, L500.2500 ####[facility] [address] [place], [address] NEUT% Normal 47-70 [facility] Comment on above: Result Comment: Canc elled via OM: Order cancelled - Patient discharged Performed By: #### L 100.0100, L500.2500 ####[facility] [address] [place], [address] PLT Normal 150-450 [facility] Comment on above: Result Comment: Canc elled via OM: Order cancelled - Patient discharged Performed By: #### L 100.0100, L500.2500 ####[facility] [address] [place], [address] RBC Normal 4.2-5.4 [facility] Comment on above: Result Comment: Canc elled via OM: Order cancelled - Patient discharged Performed By: #### L 100.0100, L500.2500 ####[facility] [address] [place], [address] RDW CV Normal 11.6-14.6 [facility] Comment on above: Result Comment: Canc elled via OM: Order cancelled - Patient discharged Performed By: #### L 100.0100, L500.2500 ####[facility] [address] [place], [address] RDW SD Normal 35.1-43.9 [facility] Comment on above: Result Comment: Canc elled via OM: Order cancelled - Patient discharged Performed By: #### L 100.0100, L500.2500 ####[facility] [address] [place], [address] WBC Normal 4.4-11.0 [facility] Comment on above: Result Comment: Canc elled via OM: Order cancelled - Patient discharged Performed By: #### L 100.0100, L500.2500 ####[facility] [address] [place], [address] Absolute lymphocyte countOrd ered By: Scott Mcdowell on 02-12-2025 Lymphocytes Auto (Unsp spec) [#/Vol] 1.40 10*3/uL 0.83-4.51 [facility] Absolute neutrophil countOrd ered By: Scott Mcdowell on 02-12-2025 Neutrophils (Bld) [#/Vol] 6.7 10*3/uL 2.0-7.7 [facility] Anion gap in Serum or Plasma Ordered By: Scott Mcdowell on 02-12-2025 Anion gap [Moles/Vol] 11 mmol/L 5-[address] [facility] Automated lymphocyte count a s percentage of total leukocytesOrdered By: Scott Mcdowell on 02-12-2025 Lymphocytes/100 WBC Auto (Unsp spec) 15.3 % Low 19-41 [facility] BUN/creatinine ratioOrdered By: Scott Jeremias on 02-12-2025 Urea nitrogen/Creatinine [Mass ratio] 20.5 mg/mg High 10-20 [facility] Basophil percentageOrdered B y: Scott Mcdowell on 02-12-2025 Basophils/100 WBC (Bld) 1.0 % 0-1 [facility] Bilirubin, totalOrdered By: Scott Mcdowell on 02-12-2025 Bilirubin [Mass/Vol] 0.22 mg/dL 0.00-1.30 [facility] CBC W/Diff, Automatedon 01-27 Absolute Lymph 1.40 X10 3/uL Normal 0.83-4.51 [facility] Comment on above: Performed By: #### L 506.1001, L3890.6301, L100.0100, L501.9520, L500.4050 ####[facility] [address] [place], [address] Absolute Neut 6.7 X10 3/uL Normal 2.0-7.7 [facility] Comment on above: Performed By: #### L 506.1001, L3890.6301, L100.0100, L501.9520, L500.4050 ####[facility] [address] [place], [address] Basophils/100 WBC (Bld) 1.0 % Normal 0-1 [facility] Comment on above: Performed By: #### L 506.1001, L3890.6301, L100.0100, L501.9520, L500.4050 ####[facility] [address] [place], [address] Eosinophils/100 WBC (Bld) 3.5 % Normal 0-5 [facility] Comment on above: Performed By: #### L 506.1001, L3890.6301, L100.0100, L501.9520, L500.4050 ####[facility] [address] [place], [address] Erythrocyte distribution width (RBC) [Ratio] 13.3 % Normal 11.6-14.6 [facility] Comment on above: Performed By: #### L 506.1001, L3890.6301, L100.0100, L501.9520, L500.4050 ####[facility] [address] [place], [address] Hematocrit (Bld) [Volume fraction] 38.3 % Normal 37-47 [facility] Comment on above: Performed By: #### L 506.1001, L3890.6301, L100.0100, L501.9520, L500.4050 ####[facility] [address] [place], [address] Hemoglobin (Bld) [Mass/Vol] 12.2 g/dL Normal 12.0-15.0 [facility] Comment on above: Performed By: #### L 506.1001, L3890.6301, L100.0100, L501.9520, L500.4050 ####[facility] [address] [place], [address] IG% 0.200 Normal 0.0-0.9 [facility] Comment on above: Result Comment: IG% - Immature Granulocytes (promyelocytes, myelocytes andmetamyelocytes) > 1% indicates that a LEFT SHIFT is Present. Performed By: #### L 506.1001, L3890.6301, L100.0100, L501.9520, L500.4050 ####[facility] [address] [place], [address] Lymphocytes/100 WBC (Bld) 15.3 % Low 19-41 [facility] Comment on above: Performed By: #### L 506.1001, L3890.6301, L100.0100, L501.9520, L500.4050 ####[facility] [address] [place], [address] MCH (RBC) [Entitic mass] 28.5 pg Normal 27.0-32.0 [facility] Comment on above: Performed By: #### L 506.1001, L3890.6301, L100.0100, L501.9520, L500.4050 ####[facility] [address] [place], [address] MCHC (RBC) [Mass/Vol] 31.9 g/dL Low 32-[address] [facility] Comment on above: Performed By: #### L 506.1001, L3890.6301, L100.0100, L501.9520, L500.4050 ####[facility] [address] [place], [address] MCV (RBC) [Entitic vol] 89.5 fL Normal 81-99 [facility] Comment on above: Performed By: #### L 506.1001, L3890.6301, L100.0100, L501.9520, L500.4050 ####[facility] [address] [place], [address] Monocytes/100 WBC (Bld) 7.4 % Normal 0-10 [facility] Comment on above: Performed By: #### L 506.1001, L3890.6301, L100.0100, L501.9520, L500.4050 ####[facility] [address] [place], [address] Neutrophils/100 WBC (Bld) 72.6 % High 47-70 [facility] Comment on above: Performed By: #### L 506.1001, L3890.6301, L100.0100, L501.9520, L500.4050 ####[facility] [address] [place], [address] Nucleated RBC (Bld) [#/Vol] 0 10*3/uL Normal 0-5 [facility] Comment on above: Performed By: #### L 506.1001, L3890.6301, L100.0100, L501.9520, L500.4050 ####[facility] [address] [place], [address] Platelet mean volume (Bld) [Entitic vol] 9.8 fL Normal 6.2-12.0 [facility] Comment on above: Performed By: #### L 506.1001, L3890.6301, L100.0100, L501.9520, L500.4050 ####[facility] [address] [place], [address] Platelets (Bld) [#/Vol] 472 10*3/uL High 150-450 [facility] Comment on above: Performed By: #### L 506.1001, L3890.6301, L100.0100, L501.9520, L500.4050 ####[facility] [address] [place], [address] RBC (Bld) [#/Vol] 4.28 10*6/uL Normal 4.2-5.4 [facility] Comment on above: Performed By: #### L 506.1001, L3890.6301, L100.0100, L501.9520, L500.4050 ####[facility] [address] [place], [address] RDW SD 43.5 fl Normal 35.1-43.9 [facility] Comment on above: Performed By: #### L 506.1001, L3890.6301, L100.0100, L501.9520, L500.4050 ####[facility] [address] [place], [address] WBC (Bld) [#/Vol] 9.2 10*3/uL Normal 4.4-11.0 [facility] Comment on above: Performed By: #### L 506.1001, L3890.6301, L100.0100, L501.9520, L500.4050 ####[facility] [address] [place], [address] Carbon dioxide, total [Moles /volume] in Central venous bloodOrdered By: Scott Mcdowell on 02-12-2025 CO2 [Moles/Vol] 25.3 mmol/L 21.0-32.0 [facility] Chloride assayOrdered By: Kem Mcdowell on 02-12-2025 Chloride [Moles/Vol] 102 mmol/L 98-108 [facility] Metabolic Prof ilon 02-12-2025 Albumin [Mass/Vol] 4.0 g/dL Normal 3.4-4.8 [facility] Comment on above: Performed By: #### L 506.1001, L3890.6301, L100.0100, L501.9520, L500.4050 ####[facility] [address] [place], [address] Albumin/Globulin [Mass ratio] 1.1 {ratio} Normal 0.9-2.4 [facility] Comment on above: Performed By: #### L 506.1001, L3890.6301, L100.0100, L501.9520, L500.4050 ####[facility] [address] [place], [address] ALK PHOS 125 U/L High 35-104 [facility] Comment on above: Performed By: #### L 506.1001, L3890.6301, L100.0100, L501.9520, L500.4050 ####[facility] [address] [place], [address] ALT [Catalytic activity/Vol] 15 U/L Normal <=34 [facility] Comment on above: Performed By: #### L 506.1001, L3890.6301, L100.0100, L501.9520, L500.4050 ####[facility] [address] [place], [address] AST [Catalytic activity/Vol] 19 U/L Normal <=31 [facility] Comment on above: Performed By: #### L 506.1001, L3890.6301, L100.0100, L501.9520, L500.4050 ####[facility] [address] [place], [address] Bilirubin [Mass/Vol] 0.22 mg/dL Normal 0.00-1.30 [facility] Comment on above: Performed By: #### L 506.1001, L3890.6301, L100.0100, L501.9520, L500.4050 ####[facility] [address] [place], [address] BUN/CRE 20.5 RATIO High 10-20 [facility] Comment on above: Performed By: #### L 506.1001, L3890.6301, L100.0100, L501.9520, L500.4050 ####[facility] [address] [place], [address] Calcium [Mass/Vol] 10.0 mg/dL Normal 7.6-11.0 [facility] Comment on above: Performed By: #### L 506.1001, L3890.6301, L100.0100, L501.9520, L500.4050 ####[facility] [address] [place], [address] Chloride [Moles/Vol] 102 mmol/L Normal 98-108 [facility] Comment on above: Performed By: #### L 506.1001, L3890.6301, L100.0100, L501.9520, L500.4050 ####[facility] [address] [place], [address] CO2 [Moles/Vol] 25.3 mmol/L Normal 21.0-32.0 [facility] Comment on above: Performed By: #### L 506.1001, L3890.6301, L100.0100, L501.9520, L500.4050 ####[facility] [address] [place], [address] Creatinine [Mass/Vol] 0.58 mg/dL Low 0.70-1.[address] [facility] Comment on above: Performed By: #### L 506.1001, L3890.6301, L100.0100, L501.9520, L500.4050 ####[facility] [address] [place], [address] GAP 11 Normal 5-15 [facility] Comment on above: Performed By: #### L 506.1001, L3890.6301, L100.0100, L501.9520, L500.4050 ####[facility] [address] [place], [address] GFR/1.73 sq M.predicted among non-blacks MDRD (S/P/Bld) [Vol rate/Area] 97 mL/min/{1.73_m2} Normal >60 [facility] Comment on above: Result Comment: mL/m in/1.73m2 CKD-EPI Creatinine Equation (2020) Performed By: #### L 506.1001, L3890.6301, L100.0100, L501.9520, L500.4050 ####[facility] [address] [place], [address] Globulin (S) [Mass/Vol] 3.7 g/dL Normal 2.2-4.2 [facility] Comment on above: Performed By: #### L 506.1001, L3890.6301, L100.0100, L501.9520, L500.4050 ####[facility] [address] [place], [address] Glucose [Mass/Vol] 100 mg/dL High 70-99 [facility] Comment on above: Performed By: #### L 506.1001, L3890.6301, L100.0100, L501.9520, L500.4050 ####[facility] [address] [place], [address] Potassium [Moles/Vol] 4.3 mmol/L Normal 3.3-5.[address] [facility] Comment on above: Performed By: #### L 506.1001, L3890.6301, L100.0100, L501.9520, L500.4050 ####[facility] [address] [place], [address] Sodium [Moles/Vol] 138 mmol/L Normal 133-145 [facility] Comment on above: Performed By: #### L 506.1001, L3890.6301, L100.0100, L501.9520, L500.4050 ####[facility] [address] [place], [address] T PROT 7.8 g/dL Normal 5.9-8.4 [facility] Comment on above: Performed By: #### L 506.1001, L3890.6301, L100.0100, L501.9520, L500.4050 ####[facility] [address] [place], [address] Urea nitrogen [Mass/Vol] 12 mg/dL Normal 4-19 [facility] Comment on above: Performed By: #### L 506.1001, L3890.6301, L100.0100, L501.9512, L500.4050 ####[facility] [address] [place], [place], [address] Eosinophil percentageOrdered By: Scott Mcdowell on 02-12-2025 Eosinophils/100 WBC (Bld) 3.5 % 0-5 [facility] Erythrocyte distribution wid th ratioOrdered By: [facility]-20[facility] Erythrocyte distribution width (RBC) [Ratio] 13.3 % 11.6-14.6 [facility] Erythrocyte distribution wid th standard deviationOrdered By: Scott Mcdowell on 02-12-2025 Erythrocyte distribution width (RBC) [Entitic vol] 43.5 fL 35.1-43.9 [facility] Erythrocyte distribution width (RBC) [Ratio] 43.5 fl 35.1-43.9 [facility] GFR/1.73 sq M.predicted connor g non-blacks MDRD (S/P/Bld) [Vol rate/Area]Ordered By: Scott Mcdowell 02-12-2025 Estimated GFR (MDRD) Non-Af Amer 97 >60 [facility] Comment on above: mL/min/1.73m2 CKD-EP I Creatinine Equation (2020) Glomerular filtration rate ( GFR) estimation/1.73 sq m using serum, plasma, or whole bOrdered By: Scott Mcdowell 02-12-2025 GFR/1.73 sq M.predicted among non-blacks MDRD (S/P/Bld) [Vol rate/Area] 97 mL/min/{1.73_m2} >60 [facility] Comment on above: mL/min/1.73m2 CKD-EP I Creatinine Equation (2020) Hematocrit Auto (Bld) [Volum e fraction]Ordered By: Scott Mcdowell 02-12-2025 Hematocrit (Bld) [Volume fraction] 38.3 % 37-47 [facility] Hemoglobin measurementOrdere d By: Scott Mcdowell 02-12-2025 Hemoglobin (Bld) [Mass/Vol] 12.2 g/dL 12.0-15.0 [facility] Hepatitis C antibodyOrdered By: Scott Mcdowell on 02-12-2025 Hepatitis C Antibody Non-Reactive Nonreactive [facility] Comment on above: Reactive: Presumptiv e evidence of antibodies to HCV. Follow CDC recommendations for supplemental testing.Non-Reactive: Antibodies to HCV were not detected; does not exclude the possibility of exposure to HCVReactive Results are presumptive evidence of antibodies to HCV. Follow CDC recommendations for supplemental testing.Order confirmation testing: HCV Quant by PCR testing - HCVPCR lc#[id number] Non Reactive: < 0.8 Equivocal: >/= 0.8 to < 1.0 Reactive: >/= 1.0The CDC requires that a reactive/equivocal HCV antibody result be sent out for confirmation. HCV Quant by PCR testing. Immature granulocytes/100 WB C Auto (Bld)Ordered By: Scott Jeremias on 02-12-2025 Immature granulocytes/100 WBC (Bld) 0.200 % 0.0-0.9 [facility] Comment on above: IG% - Immature Granu locytes (promyelocytes, myelocytes and metamyelocytes) > 1% indicates that a LEFT SHIFT is Present. L3890.6301on 02-12-2025 Hepatitis C Ab Non-Reactive Normal Nonreactive [facility] Comment on above: Result Comment: Reac tive: Presumptive evidence of antibodies to HCV. [facility].Non-Reactive: Antibodies to HCV were not detected; does notexclude the possibility of exposure to HCVReactive Results are presumptive evidence of antibodies toHCV. Follow CDC recommendations for supplemental testing.Order confirmation testing: HCV Quant by PCR testing -HCVPCR lc#[id number] Non Reactive: < 0.8 Equivocal: >/= 0.8 to < 1.0 Reactive: >/= 1.0The CDC requires that a reactive/equivocal HCV antibodyresult be sent out for confirmation. HCV Quant by PCRtesting. Performed By: #### L 506.1001, L3890.6301, L100.0100, L501.9520, L500.4050 ####[facility] [address] [place], [address] L506.1001on 02-12-2025 Vitamin D 25-OH 49.3 ng/mL Normal 30-100 [facility] Comment on above: Result Comment: Elva min D StatusDeficiency: <20 ng/mL (50nmol/L)Insufficiency: 20-30 ng/mL (50-75 nmol/L)Sufficiency: 30-100 ng/mL (75-250 nmol/L)Toxicity: >100 ng/mL (>250 nmol/L) Performed By: #### L 506.1001, L3890.6301, L100.0100, L501.9520, L500.4050 ####[facility] [address] [place], [address] Laboratory - Chemistry and C hemistry - challengeOrdered By: Scott Mcdowell on 02-12-2025 AST [Catalytic activity/Vol] 19 U/L <32 [facility] Lymphocytes Auto (Unsp spec) [#/Vol]Ordered By: Scott Mcdowell on 02-12-2025 Lymphocytes (Bld) [#/Vol] 1.40 10*3/uL 0.83-4.51 [facility] Lymphocytes/100 WBC Auto (Un sp spec)Ordered By: Scott Mcdowell on 02-12-2025 Lymphocytes/100 WBC (Bld) 15.3 % Low 19-41 [facility] MCV (mean corpuscular volume ) determinationOrdered By: Scott Mcdowell on 02-12-2025 MCV (RBC) [Entitic vol] 89.5 fL 81-99 [facility] Mean corpuscular hemoglobin (MCH) determinationOrdered By: Scott Mcdowell on 02-12-2025 MCH (RBC) [Entitic mass] 28.5 pg 27.0-32.0 [facility] Mean corpuscular hemoglobin concentration (MCHC) determinationOrdered By: Scott Mcdowell 02-12-2025 MCHC (RBC) [Mass/Vol] 31.9 g/dL Low 32-[address] [facility] Mean platelet volume determi nationOrdered By: Scott Mcdowell on 02-12-2025 Platelet mean volume (Bld) [Entitic vol] 9.8 fL 6.2-12.0 [facility] Monocyte percentageOrdered B y: Scott Mcdowell on 02-12-2025 Monocytes/100 WBC (Bld) 7.4 % 0-10 [facility] Neutrophil percentageOrdered By: Scott Mcdowell on 02-12-2025 Neutrophils/100 WBC (Bld) 72.6 % High 47-70 [facility] No Panel InformationOrdered By: Scott Mcdowell on 02-12-2025 19 U/L <32 [facility] Nucleated red blood cell per centageOrdered By: Scott Mcdowell on 02-12-2025 Nucleated RBC/100 WBC (Bld) [Ratio] 0 % 0-5 [facility] Platelet countOrdered By: Kem Mcdowell on 02-12-2025 Platelets (Bld) [#/Vol] 472 10*3/uL High 150-450 [facility] Potassium (Unsp spec) [Mass/ Vol]Ordered By: Scott Mcdowell on 02-12-2025 Potassium [Moles/Vol] 4.3 mmol/L 3.3-5.[address] [facility] Potassium measurement (mass/ volume)Ordered By: Scott Mcdowell on 02-12-2025 Potassium (Unsp spec) [Mass/Vol] 4.3 mmol/L 3.3-5.1 [facility] Pulmonary Visit Reporton Pulmonary Visit Report Normal [facility] RBC Auto (Bld) [#/Vol]Ordere d By: Scott Mcdowell on 02-12-2025 RBC (Bld) [#/Vol] 4.28 10*6/uL 4.2-5.4 [facility] Serum creatinine measurement (mass/volume)Ordered By: Scott Mcdowell on 02-12-2025 Creatinine [Mass/Vol] 0.58 mg/dL Low 0.70-1.[address] [facility] Serum globulin measurementOr dered By: Scott Mcdowell on 02-12-2025 Globulin (S) [Mass/Vol] 3.7 g/dL 2.2-4.2 [facility] Serum glucose measurement (m ass/volume)Ordered By: Scott Mcdowell on 02-12-2025 Glucose [Mass/Vol] 100 mg/dL High 70-99 [facility] Serum or plasma alanine lake otransferase (ALT) measurementOrdered By: Scott Mcdowell on 02-12-2025 ALT [Catalytic activity/Vol] 15 U/L <35 [facility] Serum or plasma albumin aury urement (mass/volume)Ordered By: Scott Mcdowell on 02-12-2025 Albumin [Mass/Vol] 4.0 g/dL 3.4-4.8 [facility] Serum or plasma albumin/glob ulin mass ratioOrdered By: Scott Mcdowell 02-12-2025 Albumin/Globulin [Mass ratio] 1.1 {ratio} 0.9-2.4 [facility] Serum or plasma alkaline frances sphatase measurementOrdered By: Scott Mcdowell on 02-12-2025 ALP [Catalytic activity/Vol] 125 U/L High 35-104 [facility] Serum or plasma calcium aury urement (mass/volume)Ordered By: Scott Mcdowell 02-12-2025 Calcium [Mass/Vol] 10.0 mg/dL 7.6-11.0 [facility] Serum or plasma urea nitroge n measurement (mass/volume)Ordered By: Scott Mcdowell 02-12-2025 Urea nitrogen [Mass/Vol] 12 mg/dL 4-19 [facility] Sodium levelOrdered By: Scott Mcdowell 02-12-2025 Sodium [Moles/Vol] 138 mmol/L 133-145 [facility] TSH DL <= 0.005 mIU/L QnOrde red By: Scott Mcdowell on 02-12-2025 Thyroid Stimulating Hormone (TSH) 1.020 uIU/mL 0.300-4.200 [facility] TSH Qn 1.020 uIU/mL 0.300-4.200 [facility] Thyroid Stim Hormone (TSH)on 02-12-2025 TSH 1.020 uIU/mL Normal 0.300-4.200 [facility] Comment on above: Performed By: #### L 506.1001, L3890.6301, L100.0100, L501.9520, L500.4050 ####[facility] [address] [place], [address] Total proteinOrdered By: Scott Mcdowell 02-12-2025 Protein [Mass/Vol] 7.8 g/dL 5.9-8.4 [facility] Vitamin D, 25-hydroxyOrdered By: Scott Mcdowell on 02-12-2025 Vitamin D 25-Hydroxy 49.3 ng/mL 30-100 [facility] Comment on above: Vitamin D StatusDefi ciency: <20 ng/mL (50nmol/L)Insufficiency: 20-30 ng/mL (50-75 nmol/L)Sufficiency: 30-100 ng/mL (75-250 nmol/L)Toxicity: >100 ng/mL (>250 nmol/L) White blood cell (WBC) count Ordered By: Scott Mcdowell on 02-12-2025 WBC (Bld) [#/Vol] 9.2 10*3/uL 4.4-11.0 [facility] Absolute lymphocyte countOrd ered By: Scott Mcdowell on 02-09-2025 Lymphocytes Auto (Unsp spec) [#/Vol] 1.04 10*3/uL 0.83-4.51 [facility] Absolute neutrophil countOrd ered By: Scott Mcdowell on 02-09-2025 Neutrophils (Bld) [#/Vol] 6.2 10*3/uL 2.0-7.7 [facility] Automated lymphocyte count a s percentage of total leukocytesOrdered By: Scott Mcdowell on 02-09-2025 Lymphocytes/100 WBC Auto (Unsp spec) 12.3 % Low 19-41 [facility] BUN/creatinine ratioOrdered By: Scott Mcdowell on 02-09-2025 Urea nitrogen/Creatinine [Mass ratio] 23.8 mg/mg High 09-17 [facility] Basic Metabolic Profile (BMP )on 02-09-2025 Anion gap [Moles/Vol] 11 mmol/L Normal 5-[address] [facility] Comment on above: Performed By: #### L 500.2500, L100.0100 ####[facility] [address] [place], [address] BUN/CRE 23.8 RATIO High 09-17 [facility] Comment on above: Performed By: #### L 500.2500, L100.0100 ####[facility] [address] [place], [address] Calcium [Mass/Vol] 9.4 mg/dL Normal 7.6-11.0 [facility] Comment on above: Performed By: #### L 500.2500, L100.0100 ####[facility] [address] [place], [address] Chloride [Moles/Vol] 103 mmol/L Normal 96-108 [facility] Comment on above: Performed By: #### L 500.2500, L100.0100 ####[facility] [address] [place], [address] CO2 [Moles/Vol] 25.4 mmol/L Normal 22.0-29.0 [facility] Comment on above: Performed By: #### L 500.2500, L100.0100 ####[facility] [address] [place], [address] Creatinine [Mass/Vol] 0.61 mg/dL Low 0.70-1.[address] [facility] Comment on above: Performed By: #### L 500.2500, L100.0100 ####[facility] [address] [place], [address] ECRCL 56.63 ml/min Normal 50-250 [facility] Comment on above: Performed By: #### L 500.2500, L100.0100 ####[facility] [address] [place], [address] GFR/1.73 sq M.predicted among non-blacks MDRD (S/P/Bld) [Vol rate/Area] 96 mL/min/{1.73_m2} Normal >60 [facility] Comment on above: Result Comment: mL/m in/1.73m2 CKD-EPI Creatinine Equation (2020) Performed By: #### L 500.2500, L100.0100 ####[facility] [address] [place], [address] Glucose [Mass/Vol] 91 mg/dL Normal 70-99 [facility] Comment on above: Performed By: #### L 500.2500, L100.0100 ####[facility] [address] [place], [address] Potassium [Moles/Vol] 4.2 mmol/L Normal 3.3-5.[address] [facility] Comment on above: Performed By: #### L 500.2500, L100.0100 ####[facility] [address] [place], [address] Sodium [Moles/Vol] 140 mmol/L Normal 133-145 [facility] Comment on above: Performed By: #### L 500.2500, L100.0100 ####[facility] [address] [place], [address] Urea nitrogen [Mass/Vol] 15 mg/dL Normal 4-19 [facility] Comment on above: Performed By: #### L 500.2500, L100.0100 ####[facility] [address] [place], [address] Basophil percentageOrdered B y: Scott Mcdowell on 02-09-2025 Basophils/100 WBC (Bld) 1.3 % High 0-1 [facility] CBC W/Diff, Automatedon 01-27 Absolute Lymph 1.04 X10 3/uL Normal 0.83-4.51 [facility] Comment on above: Performed By: #### L 500.2500, L100.0100 ####[facility] [address] [place], [address] Absolute Neut 6.2 X10 3/uL Normal 2.0-7.7 [facility] Comment on above: Performed By: #### L 500.2500, L100.0100 ####[facility] [address] [place], [address] Basophils/100 WBC (Bld) 1.3 % High 0-1 [facility] Comment on above: Performed By: #### L 500.2500, L100.0100 ####[facility] [address] [place], [address] Eosinophils/100 WBC (Bld) 5.9 % High 0-5 [facility] Comment on above: Performed By: #### L 500.2500, L100.0100 ####[facility] [address] [place], [address] Erythrocyte distribution width (RBC) [Ratio] 13.2 % Normal 11.6-14.6 [facility] Comment on above: Performed By: #### L 500.2500, L100.0100 ####[facility] [address] [place], [address] Hematocrit (Bld) [Volume fraction] 35.0 % Low 37-47 [facility] Comment on above: Performed By: #### L 500.2500, L100.0100 ####[facility] [address] [place], [address] Hemoglobin (Bld) [Mass/Vol] 10.9 g/dL Low 12.0-15.0 [facility] Comment on above: Performed By: #### L 500.2500, L100.0100 ####[facility] [address] [place], [address] IG% 0.400 Normal 0.0-0.9 [facility] Comment on above: Result Comment: IG% - Immature Granulocytes (promyelocytes, myelocytes andmetamyelocytes) > 1% indicates that a LEFT SHIFT is Present. Performed By: #### L 500.2500, L100.0100 ####[facility] [address] [place], [address] Lymphocytes/100 WBC (Bld) 12.3 % Low 19-41 [facility] Comment on above: Performed By: #### L 500.2500, L100.0100 ####[facility] [address] [place], [address] MCH (RBC) [Entitic mass] 28.5 pg Normal 27.0-32.0 [facility] Comment on above: Performed By: #### L 500.2500, L100.0100 ####[facility] [address] [place], [address] MCHC (RBC) [Mass/Vol] 31.1 g/dL Low 32-[address] [facility] Comment on above: Performed By: #### L 500.2500, L100.0100 ####[facility] [address] [place], [address] MCV (RBC) [Entitic vol] 91.4 fL Normal 81-99 [facility] Comment on above: Performed By: #### L 500.2500, L100.0100 ####[facility] [address] [place], [address] Monocytes/100 WBC (Bld) 7.1 % Normal 0-10 [facility] Comment on above: Performed By: #### L 500.2500, L100.0100 ####[facility] [address] [place], [address] Neutrophils/100 WBC (Bld) 73.0 % High 47-70 [facility] Comment on above: Performed By: #### L 500.2500, L100.0100 ####[facility] [address] [place], [address] Nucleated RBC (Bld) [#/Vol] 0 10*3/uL Normal 0-5 [facility] Comment on above: Performed By: #### L 500.2500, L100.0100 ####[facility] [address] [place], [address] Platelet mean volume (Bld) [Entitic vol] 9.6 fL Normal 6.2-12.0 [facility] [facility] Comment on above: Performed By: #### L 500.2500, L100.0100 ####[facility] [address] [place], [address] Platelets (Bld) [#/Vol] 521 10*3/uL High 150-450 [facility] Comment on above: Performed By: #### L 500.2500, L100.0100 ####[facility] [address] [place], [address] RBC (Bld) [#/Vol] 3.83 10*6/uL Low 4.2-5.4 [facility] Comment on above: Performed By: #### L 500.2500, L100.0100 ####[facility] [address] [place], [address] RDW SD 44.2 fl High 35.1-43.9 [facility] Comment on above: Performed By: #### L 500.2500, L100.0100 ####[facility] [address] [place], [address] WBC (Bld) [#/Vol] 8.4 10*3/uL Normal 4.4-11.0 [facility] Comment on above: Performed By: #### L 500.2500, L100.0100 ####[facility] [address] [place], [address] Carbon dioxide measurementOr dered By: Scott Mcdowell on 02-09-2025 CO2 [Moles/Vol] 25.4 mmol/L 22.0-29.0 [facility] Chloride measurementOrdered By: Scott Mcdowell on 02-09-2025 Chloride [Moles/Vol] 103 mmol/L 96-108 [facility] Eosinophil percentageOrdered By: Scott Mcdowell on 02-09-2025 Eosinophils/100 WBC (Bld) 5.9 % High 0-5 [facility] Erythrocyte distribution wid th ratioOrdered By: Scott Mcdowell 02-09-2025 Erythrocyte distribution width (RBC) [Ratio] 13.2 % 11.6-14.6 [facility] Erythrocyte distribution wid th standard deviationOrdered By: Scott Mcdowell on 02-09-2025 Erythrocyte distribution width (RBC) [Entitic vol] 44.2 fL High 35.1-43.9 [facility] Erythrocyte distribution width (RBC) [Ratio] 44.2 fl High 35.1-43.9 [facility] Estimation of creatinine luis aranceOrdered By: Scott Mcdowell on 02-09-2025 Estimated Creatinine Clearance Calc 56.63 ml/min 50-250 [facility] GFR/1.73 sq M.predicted connor g non-blacks MDRD (S/P/Bld) [Vol rate/Area]Ordered By: Scott Mcdowell 02-09-2025 Estimated GFR (MDRD) Non-Af Amer 96 >60 [facility] Comment on above: mL/min/1.73m2 CKD-EP I Creatinine Equation (2020) Glomerular filtration rate ( GFR) estimation/1.73 sq m using serum, plasma, or whole bOrdered By: Scott Mcdowell 02-09-2025 GFR/1.73 sq M.predicted among non-blacks MDRD (S/P/Bld) [Vol rate/Area] 96 mL/min/{1.73_m2} >60 [facility] Comment on above: mL/min/1.73m2 CKD-EP I Creatinine Equation (2020) Hematocrit Auto (Bld) [Volum e fraction]Ordered By: Scott Mcdowell 02-09-2025 Hematocrit (Bld) [Volume fraction] 35.0 % Low 37-47 [facility] Hemoglobin measurementOrdere d By: Scott Mcdowell 02-09-2025 Hemoglobin (Bld) [Mass/Vol] 10.9 g/dL Low 12.0-15.0 [facility] Immature granulocytes/100 WB C Auto (Bld)Ordered By: Scott Mcdowell 02-09-2025 Immature granulocytes/100 WBC (Bld) 0.400 % 0.0-0.9 [facility] Comment on above: IG% - Immature Granu locytes (promyelocytes, myelocytes and metamyelocytes) > 1% indicates that a LEFT SHIFT is Present. Lymphocytes Auto (Unsp spec) [#/Vol]Ordered By: Scott Mcdowell on 02-09-2025 Lymphocytes (Bld) [#/Vol] 1.04 10*3/uL 0.83-4.51 [facility] Lymphocytes/100 WBC Auto (Un sp spec)Ordered By: Scott Mcdowell on 02-09-2025 Lymphocytes/100 WBC (Bld) 12.3 % Low 19-41 [facility] MCV (mean corpuscular volume ) determinationOrdered By: Scott Mcdowell on 02-09-2025 MCV (RBC) [Entitic vol] 91.4 fL 81-99 [facility] Mean corpuscular hemoglobin (MCH) determinationOrdered By: Scott Mcdowell on 02-09-2025 MCH (RBC) [Entitic mass] 28.5 pg 27.0-32.0 [facility] Mean corpuscular hemoglobin concentration (MCHC) determinationOrdered By: Scott Mcdowell on 02-09-2025 MCHC (RBC) [Mass/Vol] 31.1 g/dL Low 32-[address] [facility] Mean platelet volume determi nationOrdered By: Scott Mcdowell on 02-09-2025 Platelet mean volume (Bld) [Entitic vol] 9.6 fL 6.2-12.0 [facility] Monocyte percentageOrdered B y: Scott Segoviaok on 02-09-2025 Monocytes/100 WBC (Bld) 7.1 % 0-10 [facility] Neutrophil percentageOrdered By: Scott Mcdowell on 02-09-2025 Neutrophils/100 WBC (Bld) 73.0 % High 47-70 [facility] Nucleated red blood cell per centageOrdered By: Scott Mcdowell on 02-09-2025 Nucleated RBC/100 WBC (Bld) [Ratio] 0 % 0-5 [facility] Platelet countOrdered By: Kem Mcdowell on 02-09-2025 Platelets (Bld) [#/Vol] 521 10*3/uL High 150-450 [facility] RBC Auto (Bld) [#/Vol]Ordere d By: Scott Mcdowell on 02-09-2025 RBC (Bld) [#/Vol] 3.83 10*6/uL Low 4.2-5.4 [facility] Serum creatinine measurement (mass/volume)Ordered By: Scott Mcdowell on 02-09-2025 Creatinine [Mass/Vol] 0.61 mg/dL Low 0.70-1.[address] [facility] Serum glucose measurement (m ass/volume)Ordered By: Scott Mcdowell on 02-09-2025 Glucose [Mass/Vol] 91 mg/dL 70-99 [facility] Serum or plasma anion gap de termination (moles/volume)Ordered By: Scott Mcdowell on 02-09-2025 Anion gap [Moles/Vol] 11 mmol/L 5-[address] [facility] Serum or plasma calcium aury urement (mass/volume)Ordered By: Scott Mcdowell on 02-09-2025 Calcium [Mass/Vol] 9.4 mg/dL 7.6-11.0 [facility] Serum or plasma potassium me asurementOrdered By: Scott Mcdowell on 02-09-2025 Potassium [Moles/Vol] 4.2 mmol/L 3.3-5.[address] [facility] Serum or plasma sodium measu rement (moles/volume)Ordered By: Scott Mcdowell on 02-09-2025 Sodium [Moles/Vol] 140 mmol/L 133-145 [facility] Serum or plasma urea nitroge n measurement (mass/volume)Ordered By: Scott Mcdowell on 02-09-2025 Urea nitrogen [Mass/Vol] 15 mg/dL - [facility] White blood cell (WBC) count Ordered By: Scott Mcdowell on 02-09-2025 WBC (Bld) [#/Vol] 8.4 10*3/uL 4.4-11.0 [facility] CTA Chest W/WO Contraston CTA Chest W/WO Contrast Normal [facility] Venous Duplex US, Unilateral on 02-07-2025 Venous Duplex US, Unilateral Normal [facility] Venous duplex ultrasound rep ortOrdered By: Raymundo Petty on 02-07-2025 US Vein [facility] [address] [place] [address] Venous Duplex US, Unilateral 02/07/25 1306 MR#: [id number] Acct: [id number] Name: EDSON COOK Rep #:[id number] : [...] 1549 Date _ Raymundo Petty MD CC: 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 Lori Dale; Dr. Scott Mcdowell MD ~ Date Dictated: 02/07/25 1306 Date Transcribed: 02/07/25 1549 [employer] Potato Arranger: Signed [facility] Work Phone: Basic Metabolic Profile (BMP )on 02-02-2025 Anion gap [Moles/Vol] 11 mmol/L Normal 5-[address] [facility] Comment on above: Performed By: #### L 100.0100, L500.2500 ####[facility] [address] [place], [address] BUN/CRE 25.7 RATIO High 10-20 [facility] Comment on above: Performed By: #### L 100.0100, L500.2500 ####[facility] [address] [place], [address] Calcium [Mass/Vol] 9.3 mg/dL Normal 7.6-11.0 [facility] Comment on above: Performed By: #### L 100.0100, L500.2500 ####[facility] [address] [place], [address] Chloride [Moles/Vol] 104 mmol/L Normal 96-108 [facility] Comment on above: Performed By: #### L 100.0100, L500.2500 ####[facility] [address] [place], [address] CO2 [Moles/Vol] 25.0 mmol/L Normal 22.0-29.0 [facility] Comment on above: Performed By: #### L 100.0100, L500.2500 ####[facility] [address] [place], [address] Creatinine [Mass/Vol] 0.51 mg/dL Low 0.70-1.[address] [facility] Comment on above: Performed By: #### L 100.0100, L500.2500 ####[facility] [address] [place], [address] ECRCL 57.13 ml/min Normal 50-250 [facility] Comment on above: Performed By: #### L 100.0100, L500.2500 ####[facility] [address] [place], [address] GFR/1.73 sq M.predicted among non-blacks MDRD (S/P/Bld) [Vol rate/Area] 100 mL/min/{1.73_m2} Normal >60 [facility] Comment on above: Result Comment: mL/m in/1.73m2 CKD-EPI Creatinine Equation (2020) Performed By: #### L 100.0100, L500.2500 ####[facility] [address] [place], [address] Glucose [Mass/Vol] 102 mg/dL High 70-99 [facility] Comment on above: Performed By: #### L 100.0100, L500.2500 ####[facility] [address] [place], [address] Potassium [Moles/Vol] 4.5 mmol/L Normal 3.3-5.[address] [facility] Comment on above: Performed By: #### L 100.0100, L500.2500 ####[facility] [address] [place], [address] Sodium [Moles/Vol] 140 mmol/L Normal 133-145 [facility] Comment on above: Performed By: #### L 100.0100, L500.2500 ####[facility] [address] [place], [address] Urea nitrogen [Mass/Vol] 13 mg/dL Normal 4-19 [facility] Comment on above: Performed By: #### L 100.0100, L500.2500 ####[facility] [address] [place], [address] CBC W/Diff, Automatedon 03-0 Absolute Lymph 1.29 X10 3/uL Normal 0.83-4.51 [facility] Comment on above: Performed By: #### L 100.0100, L500.2500 ####[facility] [address] [place], [address] Absolute Neut 5.2 X10 3/uL Normal 2.0-7.7 [facility] Comment on above: Performed By: #### L 100.0100, L500.2500 ####[facility] [address] [place], [address] Basophils/100 WBC (Bld) 1.1 % High 0-1 [facility] Comment on above: Performed By: #### L 100.0100, L500.2500 ####[facility] [address] [place], [address] Eosinophils/100 WBC (Bld) 6.1 % High 0-5 [facility] Comment on above: Performed By: #### L 100.0100, L500.2500 ####[facility] [address] [place], [address] Erythrocyte distribution width (RBC) [Ratio] 13.2 % Normal 11.6-14.6 [facility] Comment on above: Performed By: #### L 100.0100, L500.2500 ####[facility] [address] [place], [address] Hematocrit (Bld) [Volume fraction] 32.8 % Low 37-47 [facility] Comment on above: Performed By: #### L 100.0100, L500.2500 ####[facility] [address] [place], [address] Hemoglobin (Bld) [Mass/Vol] 10.4 g/dL Low 12.0-15.0 [facility] Comment on above: Performed By: #### L 100.0100, L500.2500 ####[facility] [address] [place], [address] IG% 1.200 High 0.0-0.9 [facility] Comment on above: Result Comment: IG% - Immature Granulocytes (promyelocytes, myelocytes andmetamyelocytes) > 1% indicates that a LEFT SHIFT is Present. Performed By: #### L 100.0100, L500.2500 ####[facility] [address] [place], [address] Lymphocytes/100 WBC (Bld) 16.1 % Low 19-41 [facility] Comment on above: Performed By: #### L 100.0100, L500.2500 ####[facility] [address] [place], [address] MCH (RBC) [Entitic mass] 28.6 pg Normal 27.0-32.0 [facility] Comment on above: Performed By: #### L 100.0100, L500.2500 ####[facility] [address] [place], [address] MCHC (RBC) [Mass/Vol] 31.7 g/dL Low 32-[address] [facility] Comment on above: Performed By: #### L 100.0100, L500.2500 ####[facility] [address] [place], [address] MCV (RBC) [Entitic vol] 90.1 fL Normal 81-99 [facility] Comment on above: Performed By: #### L 100.0100, L500.2500 ####[facility] [address] [place], [address] Monocytes/100 WBC (Bld) 10.2 % High 0-10 [facility] Comment on above: Performed By: #### L 100.0100, L500.2500 ####[facility] [address] [place], [address] Neutrophils/100 WBC (Bld) 65.3 % Normal 47-70 [facility] Comment on above: Performed By: #### L 100.0100, L500.2500 ####[facility] [address] [place], [address] Nucleated RBC (Bld) [#/Vol] 0 10*3/uL Normal 0-5 [facility] Comment on above: Performed By: #### L 100.0100, L500.2500 ####[facility] [address] [place], [address] Platelet mean volume (Bld) [Entitic vol] 9.3 fL Normal 6.2-12.0 [facility] Comment on above: Performed By: #### L 100.0100, L500.2500 ####[facility] [address] [place], [address] Platelets (Bld) [#/Vol] 520 10*3/uL High 150-450 [facility] Comment on above: Performed By: #### L 100.0100, L500.2500 ####[facility] [address] [place], [address] RBC (Bld) [#/Vol] 3.64 10*6/uL Low 4.2-5.4 [facility] Comment on above: Performed By: #### L 100.0100, L500.2500 ####[facility] [address] [place], [address] RDW SD 43.8 fl Normal 35.1-43.9 [facility] Comment on above: Performed By: #### L 100.0100, L500.2500 ####[facility] [address] [place], [address] WBC (Bld) [#/Vol] 8.0 10*3/uL Normal 4.4-11.0 [facility] Comment on above: Performed By: #### L 100.0100, L500.2500 ####[facility] [address] [place], [address] L3410.9998on 01-31-2025 [facility]. COMMENT Normal . [facility] Comment on above: Order Comment: [id number] 0HYPERSENSTIVITY PNEUMONITIS SD Result Comment: Test Ordered: [id number] Hypersensitivity PneumonitisAspergillus fumigatus IgG Negative BN Reference Range: NegativeMicropolyspora faeni IgG Negative BN Reference Range: NegativeThermoactinomyces vulgaris IgG Negative BN Reference Range: NegativeAureobasidium pullulans IgG Negative BN Reference Range: NegativeThermoactinomyces sacchari IgG Negative BN Reference Range: NegativePigeon Serum IgG Negative BN Reference Range: NegativePerformed at: [facility] [address] [id number] Director: Elliot Hester MD, Phone: [phone] at: [facility] [place], [place] [id number] Director: Eros Rosales PhD, Phone: [phone] Performed By: #### L 3100.5450, L3300.1200, L4600.0100, L3410.9998, L505.7010 ####[facility] [address] [place], [place], [address] Culture, Blood (WB)on 2024 CUB Blood cultures x2, f rom two different sites No growth in 5 days. Normal [facility] Comment on above: Performed By: #### M 200.1000, L100.0100, L500.4050, L503.6005, L300.3900, L300.4310 ####[facility] [address] [place], [place], [address] HH, Hemoglobin AND Hematocri ton 01-29-2025 Hematocrit (Bld) [Volume fraction] 31.1 % Low 37-47 [facility] Comment on above: Performed By: #### L 100.0600 ####[facility] [address] [place], [place], [address] Hemoglobin (Bld) [Mass/Vol] 10.0 g/dL Low 12.0-15.0 [facility] Comment on above: Performed By: #### L 100.0600 ####[facility] [address] [place], [address] Basic Metabolic Profile (BMP )on 01-27-2025 Anion gap [Moles/Vol] 10 mmol/L Normal 5-[address] [facility] Comment on above: Performed By: #### L 500.2500, L100.0100 ####[facility] [address] [place], [address] BUN/CRE 32.1 RATIO High 10-20 [facility] Comment on above: Performed By: #### L 500.2500, L100.0100 ####[facility] [address] [place], [address] Calcium [Mass/Vol] 8.6 mg/dL Normal 7.6-11.0 [facility] Comment on above: Performed By: #### L 500.2500, L100.0100 ####[facility] [address] [place], [address] Chloride [Moles/Vol] 100 mmol/L Normal 96-108 [facility] Comment on above: Performed By: #### L 500.2500, L100.0100 ####[facility] [address] [place], [address] CO2 [Moles/Vol] 26.2 mmol/L Normal 22.0-29.0 [facility] Comment on above: Performed By: #### L 500.2500, L100.0100 ####[facility] [address] [place], [address] Creatinine [Mass/Vol] 0.41 mg/dL Low 0.70-1.[address] [facility] Comment on above: Performed By: #### L 500.2500, L100.0100 ####[facility] [address] [place], [address] ECRCL 58.28 ml/min Normal [facility] Comment on above: Performed By: #### L 500.2500, L100.0100 ####[facility] [address] [place], [address] GFR/1.73 sq M.predicted among non-blacks MDRD (S/P/Bld) [Vol rate/Area] 105 mL/min/{1.73_m2} Normal >60 [facility] Comment on above: Result Comment: mL/m in/1.73m2 CKD-EPI Creatinine Equation (2020) Performed By: #### L 500.2500, L100.0100 ####[facility] [address] [place], [address] Glucose [Mass/Vol] 99 mg/dL Normal 70-99 [facility] Comment on above: Performed By: #### L 500.2500, L100.0100 ####[facility] [address] [place], [address] Potassium [Moles/Vol] 3.4 mmol/L Normal 3.3-5.[address] [facility] Comment on above: Performed By: #### L 500.2500, L100.0100 ####[facility] [address] [place], [address] Sodium [Moles/Vol] 136 mmol/L Normal 133-145 [facility] Comment on above: Performed By: #### L 500.2500, L100.0100 ####[facility] [address] [place], [address] Urea nitrogen [Mass/Vol] 13 mg/dL Normal 4-19 [facility] Comment on above: Performed By: #### L 500.2500, L100.0100 ####[facility] [address] [place], [address] CBC W/Diff, Automatedon 03-0 Absolute Lymph 1.11 X10 3/uL Normal 0.83-4.51 [facility] Comment on above: Performed By: #### L 500.2500, L100.0100 ####[facility] [address] [place], [address] Absolute Neut 8.0 X10 3/uL High 2.0-7.7 [facility] Comment on above: Performed By: #### L 500.2500, L100.0100 ####[facility] [address] [place], [address] Basophils/100 WBC (Bld) 0.5 % Normal 0-1 [facility] Comment on above: Performed By: #### L 500.2500, L100.0100 ####[facility] [address] [place], [address] Eosinophils/100 WBC (Bld) 2.5 % Normal 0-5 [facility] Comment on above: Performed By: #### L 500.2500, L100.0100 ####[facility] [address] [place], [address] Erythrocyte distribution width (RBC) [Ratio] 12.8 % Normal 11.6-14.6 [facility] Comment on above: Performed By: #### L 500.2500, L100.0100 ####[facility] [address] [place], [address] Hematocrit (Bld) [Volume fraction] 30.3 % Low 37-47 [facility] Comment on above: Performed By: #### L 500.2500, L100.0100 ####[facility] [address] [place], [address] Hemoglobin (Bld) [Mass/Vol] 9.8 g/dL Low 12.0-15.0 [facility] Comment on above: Performed By: #### L 500.2500, L100.0100 ####[facility] [address] [place], [address] IG% 0.400 Normal 0.0-0.9 [facility] Comment on above: Result Comment: IG% - Immature Granulocytes (promyelocytes, myelocytes andmetamyelocytes) > 1% indicates that a LEFT SHIFT is Present. Performed By: #### L 500.2500, L100.0100 ####[facility] [address] [place], [address] Lymphocytes/100 WBC (Bld) 10.3 % Low 19-41 [facility] Comment on above: Performed By: #### L 500.2500, L100.0100 ####[facility] [address] [place], [address] MCH (RBC) [Entitic mass] 28.6 pg Normal 27.0-32.0 [facility] Comment on above: Performed By: #### L 500.2500, L100.0100 ####[facility] [address] [place], [address] MCHC (RBC) [Mass/Vol] 32.3 g/dL Normal 32-[address] [facility] Comment on above: Performed By: #### L 500.2500, L100.0100 ####[facility] [address] [place], [address] MCV (RBC) [Entitic vol] 88.3 fL Normal 81-99 [facility] Comment on above: Performed By: #### L 500.2500, L100.0100 ####[facility] [address] [place], [address] Monocytes/100 WBC (Bld) 11.9 % High 0-10 [facility] Comment on above: Performed By: #### L 500.2500, L100.0100 ####[facility] [address] [place], [address] Neutrophils/100 WBC (Bld) 74.4 % High 47-70 [facility] Comment on above: Performed By: #### L 500.2500, L100.0100 ####[facility] [address] [place], [address] Nucleated RBC (Bld) [#/Vol] 0 10*3/uL Normal 0-5 [facility] Comment on above: Performed By: #### L 500.2500, L100.0100 ####[facility] [address] [place], [address] Platelet mean volume (Bld) [Entitic vol] 9.8 fL Normal 6.2-12.0 [facility] Comment on above: Performed By: #### L 500.2500, L100.0100 ####[facility] [address] [place], [address] Platelets (Bld) [#/Vol] 270 10*3/uL Normal 150-450 [facility] Comment on above: Performed By: #### L 500.2500, L100.0100 ####[facility] [address] [place], [address] RBC (Bld) [#/Vol] 3.43 10*6/uL Low 4.2-5.4 [facility] Comment on above: Performed By: #### L 500.2500, L100.0100 ####[facility] [address] [place], [address] RDW SD 41.4 fl Normal 35.1-43.9 [facility] Comment on above: Performed By: #### L 500.2500, L100.0100 ####[facility] [address] [place], [address] WBC (Bld) [#/Vol] 10.7 10*3/uL Normal 4.4-11.0 [facility] Comment on above: Performed By: #### L 500.2500, L100.0100 ####[facility] [address] [place], [address] QUITA w/ Reflex Mult Confirmon 01-26-2025 ANTI-DNA (DS)AB TNP Normal [facility] Comment on above: Performed By: #### L 3100.5450, L3300.1200, L4600.0100, L3410.9998, L505.7010 ####[facility] [address] [place], [address] ANTISCLERODERM TNP Normal [facility] Comment on above: Performed By: #### L 3100.5450, L3300.1200, L4600.0100, L3410.9998, L505.7010 ####[facility] [address] [place], [address] ANCAon 01-26-2025 Atypical pANCA <1:20 Normal Neg:<1:20 [facility] Comment on above: Result Comment: The atypical pANCA pattern has been observed in asignificant percentage of patients with ulcerative colitis,primary sclerosing cholangitis and autoimmune hepatitis. Performed By: #### L 3100.5450, L3300.1200, L4600.0100, L3410.9998, L505.7010 ####[facility] [address] [place], [address] Cytoplasmic Ab <1:20 Normal Neg:<1:20 [facility] [facility] Comment on above: Performed By: #### L 3100.5450, L3300.1200, L4600.0100, L3410.9998, L505.7010 ####[facility] [address] [place], [address] Perinuclear Ab. <1:20 Normal Neg:<1:20 [facility] Comment on above: Result Comment: The presence of positive fluorescence exhibiting P-ANCA orC-ANCA patterns alone is not specific for the diagnosis ofWegener's Granulomatosis (WG) or microscopic polyangiitis.Decisions about treatment should not be based solely onANCA IFA results. The International ANCA Group Consensusrecommends follow up testing of positive sera with both SD-3 and MPO-ANCA enzyme immunoassays. As many as 5% serumsamples are positive only by EIA. Ref. AM J Clin Qcauxo2031;111:507-513. Performed By: #### L 3100.5450, L3300.1200, L4600.0100, L3410.9998, L505.7010 ####[facility] [address] [place], [address] Absolute lymphocyte countOrd ered By: Lori Matthews on 01-26-2025 Lymphocytes Auto (Unsp spec) [#/Vol] 0.66 10*3/uL Low 0.83-4.51 [facility] Absolute neutrophil countOrd ered By: Lori Matthews on 01-26-2025 Neutrophils (Bld) [#/Vol] 12.2 10*3/uL High 2.0-7.7 [facility] Automated lymphocyte count a s percentage of total leukocytesOrdered By: Lori Matthews on 01-26-2025 Lymphocytes/100 WBC Auto (Unsp spec) 4.6 % Low 19-41 [facility] BUN/creatinine ratioOrdered By: Lori Matthews on 01-26-2025 Urea nitrogen/Creatinine [Mass ratio] 30.2 mg/mg High 10- [facility] Basic Metabolic Profile (BMP )on 01-26-2025 Anion gap [Moles/Vol] 12 mmol/L Normal 5-[address] [facility] Comment on above: Performed By: #### L 100.0100, L500.2500 ####[facility] [address] [place], [place], [id number] BUN/CRE 30.2 RATIO High - [facility] Comment on above: Performed By: #### L 100.0100, L500.2500 ####[facility] [address] [place], [address] Calcium [Mass/Vol] 8.8 mg/dL Normal 7.6-11.0 [facility] Comment on above: Performed By: #### L 100.0100, L500.2500 ####[facility] [address] [place], [address] Chloride [Moles/Vol] 97 mmol/L Normal 96-108 [facility] Comment on above: Performed By: #### L 100.0100, L500.2500 ####[facility] [address] [place], [address] CO2 [Moles/Vol] 24.8 mmol/L Normal 22.0-29.0 [facility] Comment on above: Performed By: #### L 100.0100, L500.2500 ####[facility] [address] [place], [address] Creatinine [Mass/Vol] 0.43 mg/dL Low 0.70-1.[address] [facility] Comment on above: Performed By: #### L 100.0100, L500.2500 ####[facility] [address] [place], [address] ECRCL 58.59 ml/min Normal [facility] Comment on above: Performed By: #### L 100.0100, L500.2500 ####[facility] [address] [place], [address] GFR/1.73 sq M.predicted among non-blacks MDRD (S/P/Bld) [Vol rate/Area] 104 mL/min/{1.73_m2} Normal >60 [facility] Comment on above: Result Comment: mL/m in/1.73m2 CKD-EPI Creatinine Equation (2020) Performed By: #### L 100.0100, L500.2500 ####[facility] [address] [place], [address] Glucose [Mass/Vol] 124 mg/dL High 70-99 [facility] Comment on above: Performed By: #### L 100.0100, L500.2500 ####[facility] [address] [place], [address] Potassium [Moles/Vol] 3.2 mmol/L Low 3.3-5.[address] [facility] Comment on above: Performed By: #### L 100.0100, L500.2500 ####[facility] [address] [place], [address] Sodium [Moles/Vol] 134 mmol/L Normal 133-145 [facility] Comment on above: Performed By: #### L 100.0100, L500.2500 ####[facility] [address] [place], [address] Urea nitrogen [Mass/Vol] 13 mg/dL Normal 4-19 [facility] Comment on above: Performed By: #### L 100.0100, L500.2500 ####[facility] [address] [place], [address] Basophil percentageOrdered B y: Lori Matthews on 01-26-2025 Basophils/100 WBC (Bld) 0.3 % 0-1 [facility] CBC W/Diff, Automatedon 12-31 PATH REV Reviewed Normal [facility] Comment on above: Result Comment: Neut rophilic leukocytosis.Normocytic anemia.Clinical correlation necessary.Fidel Morillo M.D. 01/26/25 AMENDED REPORT 01/26/25 1337 PATH REV previously reported as: March Performed By: #### L 500.4050, L100.0100, L501.5200, L501.2300 ####[facility] [address] [place], [address] Absolute Lymph 0.66 X10 3/uL Low 0.83-4.51 [facility] Comment on above: Performed By: #### L 100.0100, L500.2500 ####[facility] [address] [place], [address] Absolute Neut 12.2 X10 3/uL High 2.0-7.7 [facility] Comment on above: Performed By: #### L 100.0100, L500.2500 ####[facility] [address] [place], [address] Basophils/100 WBC (Bld) 0.3 % Normal 0-1 [facility] Comment on above: Performed By: #### L 100.0100, L500.2500 ####[facility] [address] [place], [address] Eosinophils/100 WBC (Bld) 0.6 % Normal 0-5 [facility] Comment on above: Performed By: #### L 100.0100, L500.2500 ####[facility] [address] [place], [address] Erythrocyte distribution width (RBC) [Ratio] 12.7 % Normal 11.6-14.6 [facility] Comment on above: Performed By: #### L 100.0100, L500.2500 ####[facility] [address] [place], [address] Hematocrit (Bld) [Volume fraction] 31.4 % Low 37-47 [facility] Comment on above: Performed By: #### L 100.0100, L500.2500 ####[facility] [address] [place], [address] Hemoglobin (Bld) [Mass/Vol] 10.4 g/dL Low 12.0-15.0 [facility] Comment on above: Performed By: #### L 100.0100, L500.2500 ####[facility] [address] [place], [address] IG% 0.400 Normal 0.0-0.9 [facility] Comment on above: Result Comment: IG% - Immature Granulocytes (promyelocytes, myelocytes andmetamyelocytes) > 1% indicates that a LEFT SHIFT is Present. Performed By: #### L 100.0100, L500.2500 ####[facility] [address] [place], [address] Lymphocytes/100 WBC (Bld) 4.6 % Low 19-41 [facility] Comment on above: Performed By: #### L 100.0100, L500.2500 ####[facility] [address] [place], [address] MCH (RBC) [Entitic mass] 29.1 pg Normal 27.0-32.0 [facility] Comment on above: Performed By: #### L 100.0100, L500.2500 ####[facility] [address] [place], [address] MCHC (RBC) [Mass/Vol] 33.1 g/dL Normal 32-[address] [facility] Comment on above: Performed By: #### L 100.0100, L500.2500 ####[facility] [address] [place], [address] MCV (RBC) [Entitic vol] 87.7 fL Normal 81-99 [facility] Comment on above: Performed By: #### L 100.0100, L500.2500 ####[facility] [address] [place], [address] Monocytes/100 WBC (Bld) 9.1 % Normal 0-10 [facility] Comment on above: Performed By: #### L 100.0100, L500.2500 ####[facility] [address] [place], [address] Neutrophils/100 WBC (Bld) 85.0 % High 47-70 [facility] Comment on above: Performed By: #### L 100.0100, L500.2500 ####[facility] [address] [place], [address] Nucleated RBC (Bld) [#/Vol] 0 10*3/uL Normal 0-5 [facility] Comment on above: Performed By: #### L 100.0100, L500.2500 ####[facility] [address] [place], [address] Platelet mean volume (Bld) [Entitic vol] 10.2 fL Normal 6.2-12.0 [facility] Comment on above: Performed By: #### L 100.0100, L500.2500 ####[facility] [address] [place], [address] Platelets (Bld) [#/Vol] 249 10*3/uL Normal 150-450 [facility] Comment on above: Performed By: #### L 100.0100, L500.2500 ####[facility] [address] [place], [address] RBC (Bld) [#/Vol] 3.58 10*6/uL Low 4.2-5.4 [facility] Comment on above: Performed By: #### L 100.0100, L500.2500 ####[facility] [address] [place], [address] RDW SD 40.6 fl Normal 35.1-43.9 [facility] Comment on above: Performed By: #### L 100.0100, L500.2500 ####[facility] [address] [place], [address] WBC (Bld) [#/Vol] 14.4 10*3/uL High 4.4-11.0 [facility] Comment on above: Performed By: #### L 100.0100, L500.2500 ####[facility] [address] [place], [address] CCP IgG Antibodieson 025 CCP IgG Ab. 6 units Normal 0-19 [facility] Comment on above: Result Comment: Nega tive <20 Weak positive 20 - 39 Moderate positive 40 - 59 Strong positive >59Performed at: [facility] [employer] [id number] [place], [place] [id number] Director: Eros Rosales PhD, Phone: [phone] Performed By: #### L 3100.5008, L3300.1200, L4600.0100, L3410.9998, L505.7010 ####[facility] [address] [place], [place], [id number] Carbon dioxide measurementOr dered By: Lori Matthews on 01-26-2025 CO2 [Moles/Vol] 24.8 mmol/L 22.0-29.0 [facility] Chloride measurementOrdered By: Lori Matthews on 01-26-2025 Chloride [Moles/Vol] 97 mmol/L 96-108 [facility] Eosinophil percentageOrdered By: Lori Matthews on 01-26-2025 Eosinophils/100 WBC (Bld) 0.6 % 0-5 [facility] Erythrocyte distribution wid th ratioOrdered By: Lori Matthews on 01-26-2025 Erythrocyte distribution width (RBC) [Ratio] 12.7 % 11.6-14.6 [facility] Erythrocyte distribution wid th standard deviationOrdered By: Lori Matthews on 01-26-2025 Erythrocyte distribution width (RBC) [Entitic vol] 40.6 fL 35.1-43.9 [facility] Erythrocyte distribution width (RBC) [Ratio] 40.6 fl 35.1-43.9 [facility] Estimation of creatinine luis aranceOrdered By: Lori Matthews on 01-26-2025 Estimated Creatinine Clearance Calc 58.59 ml/min [facility] GFR/1.73 sq M.predicted connor g non-blacks MDRD (S/P/Bld) [Vol rate/Area]Ordered By: Lori Matthews on 01-26-2025 Estimated GFR (MDRD) Non-Af Amer 104 >60 [facility] Comment on above: mL/min/1.73m2 CKD-EP I Creatinine Equation (2020) Glomerular filtration rate ( GFR) estimation/1.73 sq m using serum, plasma, or whole bOrdered By: Lori Matthews on 01-26-2025 GFR/1.73 sq M.predicted among non-blacks MDRD (S/P/Bld) [Vol rate/Area] 104 mL/min/{1.73_m2} >60 [facility] Comment on above: mL/min/1.73m2 CKD-EP I Creatinine Equation (2020) Hematocrit Auto (Bld) [Volum e fraction]Ordered By: Lori Matthews on 01-26-2025 Hematocrit (Bld) [Volume fraction] 31.4 % Low 37-47 [facility] Hemoglobin measurementOrdere d By: Lori Matthews on 01-26-2025 Hemoglobin (Bld) [Mass/Vol] 10.4 g/dL Low 12.0-15.0 [facility] Immature granulocytes/100 WB C Auto (Bld)Ordered By: Lori Matthews on 01-26-2025 Immature granulocytes/100 WBC (Bld) 0.400 % 0.0-0.9 [facility] Comment on above: IG% - Immature Granu locytes (promyelocytes, myelocytes and metamyelocytes) > 1% indicates that a LEFT SHIFT is Present. Lymphocytes Auto (Unsp spec) [#/Vol]Ordered By: Lori Matthews on 01-26-2025 Lymphocytes (Bld) [#/Vol] 0.66 10*3/uL Low 0.83-4.51 [facility] Lymphocytes/100 WBC Auto (Un sp spec)Ordered By: Lori Matthews on 01-26-2025 Lymphocytes/100 WBC (Bld) 4.6 % Low 19-41 [facility] MCV (mean corpuscular volume ) determinationOrdered By: Lori Matthews on 01-26-2025 MCV (RBC) [Entitic vol] 87.7 fL 81-99 [facility] Mean corpuscular hemoglobin (MCH) determinationOrdered By: Lori Matthews on 01-26-2025 MCH (RBC) [Entitic mass] 29.1 pg 27.0-32.0 [facility] Mean corpuscular hemoglobin concentration (MCHC) determinationOrdered By: Lori Matthews on 01-26-2025 MCHC (RBC) [Mass/Vol] 33.1 g/dL 32-[address] [facility] Mean platelet volume determi nationOrdered By: Lori Matthews on 01-26-2025 Platelet mean volume (Bld) [Entitic vol] 10.2 fL 6.2-12.0 [facility] Monocyte percentageOrdered B y: Lori Matthews on 01-26-2025 Monocytes/100 WBC (Bld) 9.1 % 0-10 [facility] Neutrophil percentageOrdered By: Lori Matthews on 01-26-2025 Neutrophils/100 WBC (Bld) 85.0 % High 47-70 [facility] Nucleated red blood cell per centageOrdered By: Lori Matthews on 01-26-2025 Nucleated RBC/100 WBC (Bld) [Ratio] 0 % 0-5 [facility] Platelet countOrdered By: Lissett Matthews on 01-26-2025 Platelets (Bld) [#/Vol] 249 10*3/uL 150-450 [facility] RBC Auto (Bld) [#/Vol]Ordere d By: Lori Matthews on 01-26-2025 RBC (Bld) [#/Vol] 3.58 10*6/uL Low 4.2-5.4 [facility] Serum creatinine measurement (mass/volume)Ordered By: Lori Matthews on 01-26-2025 Creatinine [Mass/Vol] 0.43 mg/dL Low 0.70-1.[address] [facility] Serum glucose measurement (m ass/volume)Ordered By: Lori Matthews on 01-26-2025 Glucose [Mass/Vol] 124 mg/dL High 70-99 [facility] Serum or plasma anion gap de termination (moles/volume)Ordered By: Lori Matthews on 01-26-2025 Anion gap [Moles/Vol] 12 mmol/L 5-[address] [facility] Serum or plasma calcium aury urement (mass/volume)Ordered By: Lori Matthews on 01-26-2025 Calcium [Mass/Vol] 8.8 mg/dL 7.6-11.0 [facility] Serum or plasma potassium me asurementOrdered By: Lori Matthews on 01-26-2025 Potassium [Moles/Vol] 3.2 mmol/L Low 3.3-5.[address] [facility] Serum or plasma sodium measu rement (moles/volume)Ordered By: Lori Matthews on 01-26-2025 Sodium [Moles/Vol] 134 mmol/L 133-145 [facility] Serum or plasma urea nitroge n measurement (mass/volume)Ordered By: Lori Matthews on 01-26-2025 Urea nitrogen [Mass/Vol] 13 mg/dL 4-19 [facility] Urine Cultureon 01-26-2025 URC Mixed Gram Positive Organisms Davison Count 11,000-25,000 MIXC Mixed contaminants. Submit a new specimen if indicated. Normal [facility] Comment on above: Performed By: #### L 400.0001, M100.678, M100.2200 ####[facility] [address] [place], [place], [id number] White blood cell (WBC) count Ordered By: Lori Matthews on 01-26-2025 WBC (Bld) [#/Vol] 14.4 10*3/uL High 4.4-11.0 [facility] Activated partial thrombopla stin time (aPTT) in platelet poor plasma by coagulation aOrdered By: Cuba Allred on 01-25-2025 aPTT Coag (PPP) [Time] 214.1 s High 24.1-36.2 [facility] Comment on above: CRITICAL VALUE LEVINE Kat SHERWOOD RN (ICU)01/25/25 0902 Zak Woods.RESULTS READ BACK BY SAME. Bilirubin, totalOrdered By: Lori Matthews on 01-25-2025 Bilirubin [Mass/Vol] 0.47 mg/dL 0.00-1.30 [facility] Comprehensive Metabolic Prof ilon 01-25-2025 Albumin [Mass/Vol] 2.9 g/dL Low 3.4-4.8 [facility] Comment on above: Performed By: #### L 500.4050, L100.0100, L501.5200, L501.2300 ####[facility] [address] [place], [address] Albumin/Globulin [Mass ratio] 0.9 {ratio} Normal 0.9-2.4 [facility] Comment on above: Performed By: #### L 500.4050, L100.0100, L501.5200, L501.2300 ####[facility] [address] [place], [address] ALK PHOS 89 U/L Normal 35-104 [facility] Comment on above: Performed By: #### L 500.4050, L100.0100, L501.5200, L501.2300 ####[facility] [address] [place], [address] ALT [Catalytic activity/Vol] 9 U/L Normal <=34 [facility] Comment on above: Performed By: #### L 500.4050, L100.0100, L501.5200, L501.2300 ####[facility] [address] [place], [address] Anion gap [Moles/Vol] 12 mmol/L Normal 5-[address] [facility] Comment on above: Performed By: #### L 500.4050, L100.0100, L501.5200, L501.2300 ####[facility] [address] [place], [address] AST [Catalytic activity/Vol] 14 U/L Normal <=31 [facility] Comment on above: Performed By: #### L 500.4050, L100.0100, L501.5200, L501.2300 ####[facility] [address] [place], [address] Bilirubin [Mass/Vol] 0.47 mg/dL Normal 0.00-1.30 [facility] Comment on above: Performed By: #### L 500.4050, L100.0100, L501.5200, L501.2300 ####[facility] [address] [place], [address] BUN/CRE 30.5 RATIO High 10-20 [facility] Comment on above: Performed By: #### L 500.4050, L100.0100, L501.5200, L501.2300 ####[facility] [address] [place], [address] Calcium [Mass/Vol] 8.9 mg/dL Normal 7.6-11.0 [facility] Comment on above: Performed By: #### L 500.4050, L100.0100, L501.5200, L501.2300 ####[facility] [address] [place], [address] Chloride [Moles/Vol] 99 mmol/L Normal 96-108 [facility] Comment on above: Performed By: #### L 500.4050, L100.0100, L501.5200, L501.2300 ####[facility] [address] [place], [address] CO2 [Moles/Vol] 21.6 mmol/L Low 22.0-29.0 [facility] Comment on above: Performed By: #### L 500.4050, L100.0100, L501.5200, L501.2300 ####[facility] [address] [place], [address] Creatinine [Mass/Vol] 0.4 mg/dL Low 0.6-1.[address] [facility] Comment on above: Performed By: #### L 500.4050, L100.0100, L501.5200, L501.2300 ####[facility] [address] [place], [address] ECRCL 58.18 ml/min Normal [facility] Comment on above: Performed By: #### L 500.4050, L100.0100, L501.5200, L501.2300 ####[facility] [address] [place], [address] GFR/1.73 sq M.predicted among non-blacks MDRD (S/P/Bld) [Vol rate/Area] 107 mL/min/{1.73_m2} Normal >60 [facility] Comment on above: Result Comment: mL/m in/1.73m2 CKD-EPI Creatinine Equation (2020) Performed By: #### L 500.4050, L100.0100, L501.5200, L501.2300 ####[facility] [address] [place], [address] Globulin (S) [Mass/Vol] 3.4 g/dL Normal 2.2-4.2 [facility] Comment on above: Performed By: #### L 500.4050, L100.0100, L501.5200, L501.2300 ####[facility] [address] [place], [address] Glucose [Mass/Vol] 107 mg/dL High 70-99 [facility] Comment on above: Performed By: #### L 500.4050, L100.0100, L501.5200, L501.2300 ####[facility] [address] [place], [address] Potassium [Moles/Vol] 3.9 mmol/L Normal 3.3-5.[address] [facility] Comment on above: Performed By: #### L 500.4050, L100.0100, L501.5200, L501.2300 ####[facility] [address] [place], [address] Sodium [Moles/Vol] 133 mmol/L Normal 133-145 [facility] Comment on above: Performed By: #### L 500.4050, L100.0100, L501.5200, L501.2300 ####[facility] [address] [place], [address] T PROT 6.3 g/dL Normal 5.9-8.4 [facility] Comment on above: Performed By: #### L 500.4050, L100.0100, L501.5200, L501.2300 ####[facility] [address] [place], [address] Urea nitrogen [Mass/Vol] 12 mg/dL Normal 4-19 [facility] Comment on above: Performed By: #### L 500.4050, L100.0100, L501.5200, L501.2300 ####[facility] [address] [place], [address] Laboratory - Chemistry and C hemistry - challengeOrdered By: Lori Matthews on 01-25-2025 AST [Catalytic activity/Vol] 14 U/L <32 [facility] Magnesiumon 01-25-2025 Magnesium [Mass/Vol] 2.1 mg/dL Normal 1.5-2.2 [facility] Comment on above: Performed By: #### L 500.4050, L100.0100, L501.5200, L501.2300 ####[facility] [address] [place], [address] Magnesium (Unsp spec) [Mass/ Vol]Ordered By: Lori Matthews on 01-25-2025 Magnesium [Mass/Vol] 2.1 mg/dL 1.5-2.2 [facility] Magnesium measurement (mass/ volume)Ordered By: Lori Matthews on 01-25-2025 Magnesium (Unsp spec) [Mass/Vol] 2.1 mg/dL 1.5-2.2 [facility] No Panel InformationOrdered By: Lori Matthews on 01-25-2025 14 U/L <32 [facility] Partial Thromboplast Timeon 01-25-2025 aPTT Coag (Bld) [Time] 214.1 s Invalid Interpretation Code 24.1-36.2 [facility] Comment on above: Result Comment: CRIT ICAL VALUE CALLED TO PRESLEY CORADO (ICU)01/25/25 0902 Zak Woods.RESULTS READ BACK BY SAME. Performed By: #### L 300.4310 ####[facility] [address] [place], [place], [address] Pathologist review Hal (Unsp spec) [Interp]Ordered By: Lori Matthews on 01-25-2025 Differential Pathologist's Review Reviewed [facility] Comment on above: Previous reported re sult: May foll Edited by: OVIDIO on 01/26/25:1337Neutrophilic leukocytosis.Normocytic anemia.Clinical correlation necessary.Fidel Morillo M.D. 01/26/25 AMENDED REPORT 01/26/251336 PATH REV previously reported as: March melissa Phosphoruson 01-25-2025 Phosphate [Mass/Vol] 2.2 mg/dL Low 2.7-4.5 [facility] Comment on above: Performed By: #### L 500.4050, L100.0100, L501.5200, L501.2300 ####[facility] [address] [place], [address] Review by pathologistOrdered By: Lori Matthews on 01-25-2025 Pathologist review Hal (Unsp spec) [Interp] Reviewed [facility] Comment on above: Previous reported re sult: May foll Edited by: OVIDIO on 01/26/25:1337Neutrophilic leukocytosis.Normocytic anemia.Clinical correlation necessary.Fidel Morillo M.D. 01/26/25 AMENDED REPORT 01/26/251336 PATH REV previously reported as: March melissa Serum globulin measurementOr dered By: Lori Matthews on 01-25-2025 Globulin (S) [Mass/Vol] 3.4 g/dL 2.2-4.2 [facility] Serum or plasma alanine lake otransferase (ALT) measurementOrdered By: Lori Matthews on 01-25-2025 ALT [Catalytic activity/Vol] 9 U/L <35 [facility] Serum or plasma albumin aury urement (mass/volume)Ordered By: Lori Matthews on 01-25-2025 Albumin [Mass/Vol] 2.9 g/dL Low 3.4-4.8 [facility] Serum or plasma albumin/glob ulin mass ratioOrdered By: Lori Matthews on 01-25-2025 Albumin/Globulin [Mass ratio] 0.9 {ratio} 0.9-2.4 [facility] Serum or plasma alkaline frances sphatase measurementOrdered By: Lori Matthews on 01-25-2025 ALP [Catalytic activity/Vol] 89 U/L 35-104 [facility] Serum phosphorus measurement Ordered By: Lori Matthews on 01-25-2025 Phosphorus Level 2.2 mg/dL Low 2.7-4.5 [facility] Total proteinOrdered By: Ayala Matthews on 01-25-2025 Protein [Mass/Vol] 6.3 g/dL 5.9-8.4 [facility] aPTT Coag (PPP) [Time]Ordere d By: Cuba Allred on 01-25-2025 aPTT Coag (Bld) [Time] 214.1 s High 24.1-36.2 [facility] Comment on above: CRITICAL VALUE LEVINE D TO PRESLEY CORADO (ICU)01/25/25 0902 Zak Woods.RESULTS READ BACK BY SAME. QUITA serumOrdered By: Cuba castro on 01-24-2025 Anti-Nuclear Antibody Screen Negative Negative [facility] Comment on above: Performed at: [address] [id number] Director: Eros Rosales PhD, Phone: [phone] Atypical perinuclear antineu trophil cytoplasmic antibodies measurementOrdered By: Cuba Allred on 01-24-2025 Atypical p-ANCA <1:20 titer Neg:<1:20 [facility] Comment on above: The atypical pANCA p attern has been observed in asignificant percentage of patients with ulcerative colitis,primary sclerosing cholangitis and autoimmune hepatitis. Basic Metabolic Profile (BMP )on 01-24-2025 Anion gap [Moles/Vol] 10 mmol/L Normal 5-[address] [facility] Comment on above: Performed By: #### L 500.2500, L100.0100 ####[facility] [address] [place], [address] BUN/CRE 22.7 RATIO High 10-20 [facility] Comment on above: Performed By: #### L 500.2500, L100.0100 ####[facility] [address] [place], [address] Calcium [Mass/Vol] 8.4 mg/dL Normal 7.6-11.0 [facility] Comment on above: Performed By: #### L 500.2500, L100.0100 ####[facility] [address] [place], [address] Chloride [Moles/Vol] 102 mmol/L Normal 96-108 [facility] Comment on above: Performed By: #### L 500.2500, L100.0100 ####[facility] [address] [place], [address] CO2 [Moles/Vol] 22.1 mmol/L Normal 22.0-29.0 [facility] Comment on above: Performed By: #### L 500.2500, L100.0100 ####[facility] [address] [place], [address] Creatinine [Mass/Vol] 0.5 mg/dL Low 0.6-1.[address] [facility] Comment on above: Performed By: #### L 500.2500, L100.0100 ####[facility] [address] [place], [address] ECRCL 57.73 ml/min Normal [facility] Comment on above: Performed By: #### L 500.2500, L100.0100 ####[facility] [address] [place], [address] GFR/1.73 sq M.predicted among non-blacks MDRD (S/P/Bld) [Vol rate/Area] 100 mL/min/{1.73_m2} Normal >60 [facility] Comment on above: Result Comment: mL/m in/1.73m2 CKD-EPI Creatinine Equation (2020) Performed By: #### L 500.2500, L100.0100 ####[facility] [address] [place], [address] Glucose [Mass/Vol] 118 mg/dL High 70-99 [facility] Comment on above: Performed By: #### L 500.2500, L100.0100 ####[facility] [address] [place], [address] Potassium [Moles/Vol] 4.2 mmol/L Normal 3.3-5.[address] [facility] Comment on above: Result Comment: Hemo lysis present, Results??could be affected.?? Performed By: #### L 500.2500, L100.0100 ####[facility] [address] [place], [address] Sodium [Moles/Vol] 134 mmol/L Normal 133-145 [facility] Comment on above: Performed By: #### L 500.2500, L100.0100 ####[facility] [address] [place], [address] Urea nitrogen [Mass/Vol] 12 mg/dL Normal 4-19 [facility] Comment on above: Performed By: #### L 500.2500, L100.0100 ####[facility] [address] [place], [address] Blood manual differential co mment interpretation (narrative result)Ordered By: Raymundo Bhardwaj on 01-24-2025 Manual differential comment Hal (Bld) [Interp] SCANNED [facility] Comment on above: MONOCYTOSIS PRESENTL EFT SHIFT: BANDS PRESENT 2+ CBC W/Diff, Automatedon -2 PATH REV Reviewed Normal [facility] Comment on above: Result Comment: Neut rophilic leukocytosis.Normocytic anemia.Clinical correlation necessary.Fidel Morillo M.D. 01/24/25 AMENDED REPORT 01/24/25 1331 PATH REV previously reported as: Jenna torres Performed By: #### L 500.2500, L100.0100 ####[facility] [address] [place], [place], [id number] Centromere B antibody assayO rdered By: Cuba Allred on 01-24-2025 [facility] Comment on above: Test not performed Chromatin antibody assayOrde red By: Cuba Allred on 01-24-2025 Antichromatin Antibodies [facility] Comment on above: Test not performed Consultation - Intensiviston 01-24-2025 Consultation - Cuff Turner Machine Operator Normal [facility] Consultation - Surgicalon Consultation - Surgical Normal [facility] Cyclic citrullinated peptide IgG QnOrdered By: Cuba Allred on 01-24-2025 Cyclic Citrullinated Peptide IgG Ab 6 units 0-19 [facility] Comment on above: Negative <20 Weak po sitive 20 - 39 Moderate positive 40 - 59 Strong positive >59Performed at: [facility] [address] Director: Eros Rosales PhD, Phone: [phone] DNA double strand Ab Qn (S)O rdered By: Cuba Allred on 01-24-2025 Anti-[facility] Strand DNA [facility] Comment on above: Test not performed Rose-1 antibody assayOrdered B y: Cuba Allred on 01-24-2025 ROSE-1 Antibody [facility] Comment on above: Test not performed L499.0043on 01-24-2025 Trop T High Sen 23 ng/L High <=14 [facility] Comment on above: Performed By: #### L 499.0043 ####[facility] [address] [place], [place], [address] Manual differential comment Hal (Bld) [Interp]Ordered By: Raymundo Bhardwaj on 02-26-2025 Differential Comment SCANNED [facility] Comment on above: MONOCYTOSIS PRESENTL EFT SHIFT: BANDS PRESENT 2+ Neutrophil cytoplasmic Ab.cl assic Qn (S)Ordered By: Cuba Allred on 01-24-2025 Cytoplasmic ANCA (c-ANCA) Antibody <1:20 titer Neg:<1:20 [facility] Neutrophil cytoplasmic Ab.pe rinuclear IF (S) [Titer]Ordered By: Cuba Allred on 01-24-2025 Perinuclear ANCA (p-ANCA) Antibody <1:20 titer Neg:<1:20 [facility] Comment on above: The presence of posi tive fluorescence exhibiting P-ANCA orC-ANCA patterns alone is not specific for the diagnosis ofWegener's Granulomatosis (WG) or microscopic polyangiitis.Decisions about treatment should not be based solely onANCA IFA results. The [employer] AN[employer] Consensusrecommends follow up testing of positive sera with both SD-3 and MPO-ANCA enzyme immunoassays. As many as 5% serumsamples are positive only by EIA. Ref. AM J Clin Irjbol8256;111:507-513. Partial Thromboplast Timeon 01-24-2025 aPTT Coag (Bld) [Time] 55.9 s High 24.1-36.2 [facility] Comment on above: Order Comment: Comme nts: Time sensitive heparin drip Performed By: #### L 300.4310 ####[facility] [address] [place], [address] aPTT Coag (Bld) [Time] 63.2 s High 24.1-36.2 [facility] Comment on above: Order Comment: Comme nts: Time sensitive heparin drip Performed By: #### L 300.4310 ####[facility] [address] [place], [address] aPTT Coag (Bld) [Time] 46.6 s High 24.1-36.2 [facility] Comment on above: Performed By: #### L 300.4310 ####[facility] [address] [place], [address] aPTT Coag (Bld) [Time] 53.2 s High 24.1-36.2 [facility] Comment on above: Performed By: #### L 300.4310 ####[facility] [address] [place], [place], [id number] Platelet estimateOrdered By: Raymundo Bhardwaj on 01-24-2025 Platelets LM Ql (Bld) ADEQUATE ADEQ [facility] Platelet morphologyOrdered B y: Raymundo Bhardwaj on 01-24-2025 Platelet morphology finding Nom (Bld) LARGE [facility] Platelet morphology finding Nom (Bld)Ordered By: Raymundo Bhardwaj on 01-24-2025 Platelet Morphology Comment [facility] Platelets LM Ql (Bld)Ordered By: Raymundo Bhardwaj on 01-24-2025 Platelet Estimate ADEQUATE [facility] BUSINESS EDUCATION TEACHER abOrdered By: Cuba starks on 01-24-2025 BUSINESS EDUCATION TEACHER Antibody [facility] Comment on above: Test not performed Rheumatoid Factoron 01-24-20 RHEUMATOID FAC 20.2 IU/mL High <15 [facility] Comment on above: Performed By: #### L 3100.5450, L3300.1200, L4600.0100, L3410.9998, L505.7010 ####[facility] [address] [place], [place], [id number] Rheumatoid factor Ql (S)Orde red By: Cuba Allred on 01-24-2025 Rheumatoid Factor 20.2 IU/mL High <15 [facility] SCL-70 extractable nuclear A b Qn (S)Ordered By: Cuba Allred on 01-24-2025 Scl-70 (Scleroderma) Antibody [facility] Comment on above: Test not performed SS-A IgG antibody assayOrder ed By: Cuba Allred on 01-24-2025 SS-A/Ro IgG Antibody [facility] Comment on above: Test not performed SS-B IgG antibody assayOrder ed By: Cuba Allred on 01-24-2025 SS-B/La IgG Antibody [facility] Comment on above: Test not performed Serum DNA double strand anti body assay (units/volume)Ordered By: Cuba Allred on 01-24-2025 DNA double strand Ab Qn (S) [facility] Comment on above: Test not performed Serum Scl-70 antibody assay (units/volume)Ordered By: Cuba Allred on 01-24-2025 SCL-70 extractable nuclear Ab Qn (S) [facility] Comment on above: Test not performed Serum classic neutrophil cyt oplasmic antibody assay (units/volume)Ordered By: Cuba Allred on 01-24-2025 Neutrophil cytoplasmic Ab.classic Qn (S) <1:20 titer Neg:<1:20 [facility] Serum or plasma cyclic citru llinated peptide IgG antibody assay (units/volume)Ordered By: Cuba Allred on 01-24-2025 Cyclic citrullinated peptide IgG Qn 6 units 0-19 [facility] Comment on above: Negative <20 Weak po sitive 20 - 39 Moderate positive 40 - 59 Strong positive >59Performed at: [facility] [id number] Director: Eros Rosales PhD, Phone: [phone] Serum perinuclear neutrophil cytoplasmic antibody titer by immunofluorescenceOrdered By: Cuba Allred on 01-24-2025 Neutrophil cytoplasmic Ab.perinuclear IF (S) [Titer] <1:20 titer Neg:<1:20 [facility] Comment on above: The presence of posi tive fluorescence exhibiting P-ANCA orC-ANCA patterns alone is not specific for the diagnosis ofWegener's Granulomatosis (WG) or microscopic polyangiitis.Decisions about treatment should not be based solely onANCA IFA results. The [employer] ANCA [employer] Consensusrecommends follow up testing of positive sera with both SD-3 and MPO-ANCA enzyme immunoassays. As many as 5% serumsamples are positive only by EIA. Ref. AM J Clin Jkejzi6570;111:507-513. Serum rheumatoid factor dete ctionOrdered By: Cuba Allred on 01-24-2025 Rheumatoid factor Ql (S) 20.2 IU/mL High <15 [facility] Álvarez antibody assayOrdered By: Cuba Allred on 01-24-2025 SM Antibody [facility] Comment on above: Test not performed Toxic granules LM Ql (Bld)Or marissad By: Raymundo Bhardwaj on 01-24-2025 Toxic Granulation 1+ [facility] Toxic leukocyte granulation detectionOrdered By: Raymundo Bhardwaj on 01-24-2025 Toxic granules LM Ql (Bld) 1+ [facility] 12 Lead EKGon 01-23-2025 12 Lead EKG Normal [facility] Bilirubin Test strip Ql (U)O rdered By: Martha Long on 01-23-2025 Bilirubin Ql (U) Negative Negative [facility] Blood cultureOrdered By: Selene Long on 01-23-2025 Bacteria identified Cx Nom (Bld) No growth in 5 days. [facility] Bacteria identified Cx Nom (Bld) No growth in 5 days. [facility] CBC W/Diff, Automatedon 12-31 Absolute Lymph 0.56 X10 3/uL Low 0.83-4.51 [facility] Comment on above: Performed By: #### M 200.1000, L100.0100, L500.4050, L503.6005, L300.3900, L300.4310 ####[facility] [address] [place], [address] Absolute Neut 16.0 X10 3/uL High 2.0-7.7 [facility] Comment on above: Performed By: #### M 200.1000, L100.0100, L500.4050, L503.6005, L300.3900, L300.4310 ####[facility] [address] [place], [address] Basophils/100 WBC (Bld) 0.3 % Normal 0-1 [facility] Comment on above: Performed By: #### M 200.1000, L100.0100, L500.4050, L503.6005, L300.3900, L300.4310 ####[facility] [address] [place], [address] Eosinophils/100 WBC (Bld) 0.1 % Normal 0-5 [facility] Comment on above: Performed By: #### M 200.1000, L100.0100, L500.4050, L503.6005, L300.3900, L300.4310 ####[facility] [address] [place], [address] Erythrocyte distribution width (RBC) [Ratio] 12.8 % Normal 11.6-14.6 [facility] Comment on above: Performed By: #### M 200.1000, L100.0100, L500.4050, L503.6005, L300.3900, L300.4310 ####[facility] [address] [place], [address] Hematocrit (Bld) [Volume fraction] 41.1 % Normal 37-47 [facility] Comment on above: Performed By: #### M 200.1000, L100.0100, L500.4050, L503.6005, L300.3900, L300.4310 ####[facility] [address] [place], [address] Hemoglobin (Bld) [Mass/Vol] 13.3 g/dL Normal 12.0-15.0 [facility] Comment on above: Performed By: #### M 200.1000, L100.0100, L500.4050, L503.6005, L300.3900, L300.4310 ####[facility] [address] [place], [address] IG% 0.600 Normal 0.0-0.9 [facility] Comment on above: Result Comment: IG% - Immature Granulocytes (promyelocytes, myelocytes andmetamyelocytes) > 1% indicates that a LEFT SHIFT is Present. Performed By: #### M 200.1000, L100.0100, L500.4050, L503.6005, L300.3900, L300.4310 ####[facility] [address] [place], [address] Lymphocytes/100 WBC (Bld) 3.1 % Low 19-41 [facility] Comment on above: Performed By: #### M 200.1000, L100.0100, L500.4050, L503.6005, L300.3900, L300.4310 ####[facility] [address] [place], [address] MCH (RBC) [Entitic mass] 28.9 pg Normal 27.0-32.0 [facility] Comment on above: Performed By: #### M 200.1000, L100.0100, L500.4050, L503.6005, L300.3900, L300.4310 ####[facility] [address] [place], [address] MCHC (RBC) [Mass/Vol] 32.4 g/dL Normal 32-[address] [facility] Comment on above: Performed By: #### M 200.1000, L100.0100, L500.4050, L503.6005, L300.3900, L300.4310 ####[facility] [address] [place], [address] MCV (RBC) [Entitic vol] 89.3 fL Normal 81-99 [facility] Comment on above: Performed By: #### M 200.1000, L100.0100, L500.4050, L503.6005, L300.3900, L300.4310 ####[facility] [address] [place], [address] Monocytes/100 WBC (Bld) 7.6 % Normal 0-10 [facility] Comment on above: Performed By: #### M 200.1000, L100.0100, L500.4050, L503.6005, L300.3900, L300.4310 ####[facility] [address] [place], [address] Neutrophils/100 WBC (Bld) 88.3 % High 47-70 [facility] Comment on above: Performed By: #### M 200.1000, L100.0100, L500.4050, L503.6005, L300.3900, L300.4310 ####[facility] [address] [place], [address] Nucleated RBC (Bld) [#/Vol] 0 10*3/uL Normal 0-5 [facility] Comment on above: Performed By: #### M 200.1000, L100.0100, L500.4050, L503.6005, L300.3900, L300.4310 ####[facility] [address] [place], [address] Platelet mean volume (Bld) [Entitic vol] 10.3 fL Normal 6.2-12.0 [facility] Comment on above: Performed By: #### M 200.1000, L100.0100, L500.4050, L503.6005, L300.3900, L300.4310 ####[facility] [address] [place], [address] Platelets (Bld) [#/Vol] 197 10*3/uL Normal 150-450 [facility] Comment on above: Performed By: #### M 200.1000, L100.0100, L500.4050, L503.6005, L300.3900, L300.4310 ####[facility] [address] [place], [address] RBC (Bld) [#/Vol] 4.60 10*6/uL Normal 4.2-5.4 [facility] Comment on above: Performed By: #### M 200.1000, L100.0100, L500.4050, L503.6005, L300.3900, L300.4310 ####[facility] [address] [place], [address] RDW SD 42.2 fl Normal 35.1-43.9 [facility] Comment on above: Performed By: #### M 200.1000, L100.0100, L500.4050, L503.6005, L300.3900, L300.4310 ####[facility] [address] [place], [address] WBC (Bld) [#/Vol] 18.1 10*3/uL High 4.4-11.0 [facility] Comment on above: Performed By: #### M 200.1000, L100.0100, L500.4050, L503.6005, L300.3900, L300.4310 ####[facility] [address] [place], [address] CTA Chest W/WO Contraston CTA Chest W/WO Contrast Normal [facility] Chest PA and Lateralon 01-23 Chest PA and Lateral Normal [facility] Comprehensive Metabolic Prof ilon 01-23-2025 Albumin [Mass/Vol] 4.1 g/dL Normal 3.4-4.8 [facility] Comment on above: Performed By: #### M 200.1000, L100.0100, L500.4050, L503.6005, L300.3900, L300.4310 ####[facility] [address] [place], [address] Albumin/Globulin [Mass ratio] 1.0 {ratio} Normal 0.9-2.4 [facility] Comment on above: Performed By: #### M 200.1000, L100.0100, L500.4050, L503.6005, L300.3900, L300.4310 ####[facility] [address] [place], [address] ALK PHOS 112 U/L High 35-104 [facility] Comment on above: Performed By: #### M 200.1000, L100.0100, L500.4050, L503.6005, L300.3900, L300.4310 ####[facility] [address] [place], [address] ALT [Catalytic activity/Vol] 14 U/L Normal <=34 [facility] Comment on above: Performed By: #### M 200.1000, L100.0100, L500.4050, L503.6005, L300.3900, L300.4310 ####[facility] [address] [place], [address] Anion gap [Moles/Vol] 13 mmol/L Normal 5-[address] [facility] Comment on above: Performed By: #### M 200.1000, L100.0100, L500.4050, L503.6005, L300.3900, L300.4310 ####[facility] [address] [place], [address] AST [Catalytic activity/Vol] 22 U/L Normal <=31 [facility] Comment on above: Performed By: #### M 200.1000, L100.0100, L500.4050, L503.6005, L300.3900, L300.4310 ####[facility] [address] [place], [address] Bilirubin [Mass/Vol] 0.76 mg/dL Normal 0.00-1.30 [facility] Comment on above: Performed By: #### M 200.1000, L100.0100, L500.4050, L503.6005, L300.3900, L300.4310 ####[facility] [address] [place], [address] BUN/CRE 28.8 RATIO High 10-20 [facility] Comment on above: Performed By: #### M 200.1000, L100.0100, L500.4050, L503.6005, L300.3900, L300.4310 ####[facility] [address] [place], [address] Calcium [Mass/Vol] 9.9 mg/dL Normal 7.6-11.0 [facility] Comment on above: Performed By: #### M 200.1000, L100.0100, L500.4050, L503.6005, L300.3900, L300.4310 ####[facility] [address] [place], [address] Chloride [Moles/Vol] 97 mmol/L Normal 96-108 [facility] Comment on above: Performed By: #### M 200.1000, L100.0100, L500.4050, L503.6005, L300.3900, L300.4310 ####[facility] [address] [place], [address] CO2 [Moles/Vol] 25.7 mmol/L Normal 22.0-29.0 [facility] Comment on above: Performed By: #### M 200.1000, L100.0100, L500.4050, L503.6005, L300.3900, L300.4310 ####[facility] [address] [place], [address] Creatinine [Mass/Vol] 0.6 mg/dL Normal 0.6-1.[address] [facility] Comment on above: Performed By: #### M 200.1000, L100.0100, L500.4050, L503.6005, L300.3900, L300.4310 ####[facility] [address] [place], [address] ECRCL 56.71 ml/min Normal [facility] Comment on above: Performed By: #### M 200.1000, L100.0100, L500.4050, L503.6005, L300.3900, L300.4310 ####[facility] [address] [place], [address] GFR/1.73 sq M.predicted among non-blacks MDRD (S/P/Bld) [Vol rate/Area] 95 mL/min/{1.73_m2} Normal >60 [facility] Comment on above: Result Comment: mL/m in/1.73m2 CKD-EPI Creatinine Equation (2020) Performed By: #### M 200.1000, L100.0100, L500.4050, L503.6005, L300.3900, L300.4310 ####[facility] [address] [place], [address] Globulin (S) [Mass/Vol] 4.0 g/dL Normal 2.2-4.2 [facility] Comment on above: Performed By: #### M 200.1000, L100.0100, L500.4050, L503.6005, L300.3900, L300.4310 ####[facility] [address] [place], [address] Glucose [Mass/Vol] 121 mg/dL High 70-99 [facility] Comment on above: Performed By: #### M 200.1000, L100.0100, L500.4050, L503.6005, L300.3900, L300.4310 ####[facility] [address] [place], [address] Potassium [Moles/Vol] 4.4 mmol/L Normal 3.3-5.[address] [facility] Comment on above: Performed By: #### M 200.1000, L100.0100, L500.4050, L503.6005, L300.3900, L300.4310 ####[facility] [address] [place], [address] Sodium [Moles/Vol] 135 mmol/L Normal 133-145 [facility] Comment on above: Performed By: #### M 200.1000, L100.0100, L500.4050, L503.6005, L300.3900, L300.4310 ####[facility] [address] [place], [address] T PROT 8.1 g/dL Normal 5.9-8.4 [facility] Comment on above: Performed By: #### M 200.1000, L100.0100, L500.4050, L503.6005, L300.3900, L300.4310 ####[facility] [address] [place], [address] Urea nitrogen [Mass/Vol] 18 mg/dL Normal 4-19 [facility] Comment on above: Performed By: #### M 200.1000, L100.0100, L500.4050, L503.6005, L300.3900, L300.4310 ####[facility] [address] [place], [address] D-Dimer Quantitative (DVT/PE )on 01-23-2025 D-DIMER QUANT > 20.00 Invalid Interpretation Code 0.27-0.49 [facility] Comment on above: Result Comment: D-Di hemanth ELEVATED (>0.49): Additional studies and clinicalassessments are indicated to conclude diagnosis of:Deep Vein Thrombosis (DVT) or Pulmonary Embolism (PE)CRITICAL VALUE CALLED TO MKRTOOUMRW68/25/25 1628 Pebbles Trotter.RESULTS READ BACK BY SAME. Performed By: #### L 300.8000 ####[facility] [address] [place], [address] D-dimer measurement for deep venous thrombosisOrdered By: Martha Long on 01-23-2025 D-Dimer Quantitative (PE/DVT) > 20.00 FEU/ug/m High 0.27-0.49 [facility] Comment on above: D-Dimer ELEVATED (>0 .49): Additional studies and clinicalassessments are indicated to conclude diagnosis of:Deep Vein Thrombosis (DVT) or Pulmonary Embolism (PE)CRITICAL VALUE CALLED TO WIXYVECNOE90/25/25 1628 Pebbles Trotter.RESULTS READ BACK BY SAME. Echo Completeon 01-23-2025 Echo Complete Normal [facility] Emergency Department Summary on 01-23-2025 Emergency Department Summary Normal [facility] Epithelial cells.squamous LM Ql (Urine sed)Ordered By: Martha Long on 01-23-2025 Epithelial cells.squamous LM.HPF (Urine sed) [#/Area] 0 /[HPF] 5-10 [facility] Glucose Ql (U)Ordered By: Juan Long on 01-23-2025 Urine Glucose (UA) Normal mg/dl Normal [facility] H AND P Exam - Hospitaliston 01-23-2025 H&P Exam - Hospitalist Normal [facility] Influenza virus A and B and SARS-CoV-2 (COVID-19) and Respiratory syncytial virus RNAOrdered By: Martha Long on 01-23-2025 SARS-CoV-2 (COVID-19) RNA MEI+probe Ql (Unsp spec) [facility] International normalized rat io (INR) calculationOrdered By: Martha Long on 01-23-2025 INR Coag (Bld) [Relative time] 1.2 {INR} [facility] Ketones Test strip Ql (U)Ord ered By: Martha Long on 01-23-2025 Ketones Ql (U) 150 mg/dl Abnormal Negative [facility] Comment on above: CRITICAL VALUE *HRES ULTS CALLED TO ED 01/23/25 1739 P[address] Trotter.REPORT READ BACK BY SAME. [id number] 01-23-2025 Trop T Delta Normal [facility] Comment on above: Result Comment: NURS E SAID TO CANCEL. DO NOT NEED IT Performed By: #### L 499.0042 ####[facility] [address] [place], [place], [address] Trop T High Sen Normal <=14 [facility] Comment on above: Result Comment: NURS E SAID TO CANCEL. DO NOT NEED IT Performed By: #### L 499.0042 ####[facility] [address] [place], [address] Trop T Delta 6 Normal [facility] Comment on above: Result Comment: If c linical suspicion for ACS is high, suggest getting athird troponin. Otherwise, stress test or CTCA. Performed By: #### L 499.0042 ####[facility] [address] [place], [address] Trop T High Sen 26 ng/L High <=14 [facility] Comment on above: Performed By: #### L 499.0042 ####[facility] [address] [place], [address] L499.0043on 01-23-2025 Trop T Delta Normal [facility] Comment on above: Result Comment: NURS E SAID TO CANCEL DO NOT NEED Performed By: #### L 499.0043 ####[facility] [address] [place], [address] Trop T High Sen Normal <=14 [facility] Comment on above: Result Comment: NURS E SAID TO CANCEL DO NOT NEED Performed By: #### L 499.0043 ####[facility] [address] [place], [address] L501.4021on 01-23-2025 Trop T High Sen 20 ng/L High <=14 [facility] Comment on above: Performed By: #### L 501.4021 ####[facility] [address] [place], [address] L503.7505on 01-23-2025 Natriuretic peptide B (Bld) [Mass/Vol] 98 pg/mL Normal <=900 [facility] Comment on above: Result Comment: Hear t Failure Unlikely: < 300 pg/mLHeart Failure Likely< 50 Years: > 450 pg/mL50-75 Years: > 900 pg/mL>75 Years: > 1800 pg/mL HF Unlikely: <300 pg/mL HF Likely: <50 years: >450 pg/mL 50 - 75 years: >900 pg/mL >75 years: >1800 pg/mL Performed By: #### L 503.7505 ####[facility] [address] [place], [address] Laboratory - Chemistry and C hemistry - challengeOrdered By: Martha Long on 01-23-2025 Natriuretic peptide B (Bld) [Mass/Vol] 98 pg/mL <900 [facility] Comment on above: Heart Failure Unlike ly: < 300 pg/mLHeart Failure Likely< 50 Years: > 450 pg/mL50-75 Years: > 900 pg/mL>75 Years: > 1800 pg/mL HF Unlikely: <300 pg/mL HF Likely: <50 years: >450 pg/mL 50 - 75 years: >900 pg/mL >75 years: >1800 pg/mL Lactic Acidon 01-23-2025 Lactate [Moles/Vol] 1.4 mmol/L Normal 0.0-2.0 [facility] Comment on above: Order Comment: Y Performed By: #### M 200.1000, L100.0100, L500.4050, L503.6005, L300.3900, L300.4310 ####[facility] [address] [place], [address] Lactic acid measurementOrder ed By: Martha Long on 01-23-2025 Lactate [Moles/Vol] 1.4 mmol/L 0.0-2.0 [facility] M100.678on 01-23-2025 M100.678 SARS-CoV-2 (COVID 19 ) Negative INFLUENZA A Negative INFLUENZA B Negative RSV PCR Negative Normal [facility] Comment on above: Performed By: #### L 400.0001, M100.678, M100.2200 ####[facility] [address] [place], [address] Microscopic analysis of urin e for red blood cells (RBC)Ordered By: Martha Long on 01-23-2025 Microscopic analysis of urine for red blood cells (RBC) 5-10 SEEN /hpf 0-5 [facility] Urine RBC 5-10 SEEN /hpf 0-5 [facility] Mucus LM Ql (Urine sed)Order ed By: Martha Long on 01-23-2025 Mucus Ql (Urine sed) 1+ /hpf [facility] Nitrite Test strip Ql (U)Ord ered By: Martha Long on 01-23-2025 Nitrite Ql (U) Negative Negative [facility] No Panel InformationOrdered By: Martha Long on 01-23-2025 Delta Troponin T 6 [facility] Comment on above: If clinical suspicio n for ACS is high, suggest getting a third troponin. Otherwise, stress test or CTCA. 6 [facility] Troponin T High Sensitivity 20 ng/L High <14 [facility] 20 ng/L High <14 [facility] 98 pg/mL <900 [facility] Partial Thromboplast Timeon 01-23-2025 aPTT Coag (Bld) [Time] 27.7 s Normal 24.1-36.2 [facility] Comment on above: Performed By: #### L 300.4310, L300.3900 ####[facility] [address] [place], [address] aPTT Coag (Bld) [Time] 29.2 s Normal 24.1-36.2 [facility] Comment on above: Performed By: #### M 200.1000, L100.0100, L500.4050, L503.6005, L300.3900, L300.4310 ####[facility] [address] [place], [address] Protein Test strip Ql (U)Ord ered By: Martha Long on 01-23-2025 Protein Ql (U) 100 mg/dl High Negative [facility] Prothrombin Time w/INRon INR Coag (PPP) [Relative time] 1.2 {INR} Normal [facility] Comment on above: Performed By: #### L 300.4310, L300.3900 ####[facility] [address] [place], [address] PT Coag (PPP) [Time] 15.7 s High 11.7-14.9 [facility] Comment on above: Performed By: #### L 300.4310, L300.3900 ####[facility] [address] [place], [address] INR Coag (PPP) [Relative time] 1.1 {INR} Normal [facility] Comment on above: Performed By: #### M 200.1000, L100.0100, L500.4050, L503.6005, L300.3900, L300.4310 ####[facility] [address] [place], [address] PT Coag (PPP) [Time] 14.3 s Normal 11.7-14.9 [facility] Comment on above: Performed By: #### M 200.1000, L100.0100, L500.4050, L503.6005, L300.3900, L300.4310 ####[facility] [address] [place], [address] Prothrombin timeOrdered By: Martha Long on 01-23-2025 PT Coag (PPP) [Time] 15.7 s High 11.7-14.9 [facility] Squamous epithelial cells de tection in urine sediment by light microscopyOrdered By: Martha Long on 01-23-2025 Epithelial cells.squamous LM Ql (Urine sed) 0 SEEN /hpf 5-10 [facility] Troponin T.cardiac High sens itivity method [Mass/Vol]Ordered By: Martha Long on 01-23-2025 Troponin T High Sensitivity 4 Hour 23 ng/L High <14 [facility] Troponin T High Sensitivity 2 Hour 26 ng/L High <14 [facility] Troponin T.cardiac [Mass/vol ume] in Serum or Plasma by High sensitivity methodOrdered By: Martha Long on 01-23-2025 Troponin T.cardiac High sensitivity method [Mass/Vol] 23 ng/L High <14 [facility] Troponin T.cardiac High sensitivity method [Mass/Vol] 26 ng/L High <14 [facility] Urinalysis, Completeon 01-23 BACTERIA 1+ /hpf Normal None Seen [facility] Comment on above: Order Comment: DOREEN CTOR TO SPECIFY Performed By: #### L 400.0001, M100.678, M100.2200 ####[facility] [address] [place], [address] Mucus Ql (Urine sed) 1+ /hpf Normal [facility] Comment on above: Order Comment: DOREEN CTOR TO SPECIFY Performed By: #### L 400.0001, M100.678, M100.2200 ####[facility] [address] [place], [address] RBC 5-10 SEEN Normal 0-5 [facility] Comment on above: Order Comment: [facility] CTOR TO SPECIFY Performed By: #### L 400.0001, M100.678, M100.2200 ####[facility] [address] [place], [address] WBC 0-5 SEEN Normal 0-5 [facility] Comment on above: Order Comment: [facility] CTOR TO SPECIFY Performed By: #### L 400.0001, M100.678, M100.2200 ####[facility] [address] [place], [address] EPI,SQUAMOUS 0 SEEN Normal 5-10 [facility] Comment on above: Order Comment: DOREEN CTOR TO SPECIFY Performed By: #### L 400.0001, M100.678, M100.2200 ####[facility] [address] [place], [address] Urine blood detectionOrdered By: Martha Long on 01-23-2025 Urine Occult Blood 150 /ul High Negative [facility] Urine clarityOrdered By: Selene Long on 01-23-2025 Clarity (U) Clear Clear [facility] Urine color determinationOrd ered By: Martha Long on 01-23-2025 Color (U) Yellow Yellow [facility] Urine cultureOrdered By: Selene Long on 01-23-2025 Bacteria identified Cx Nom (U) Positive Abnormal [facility] Urine glucose detectionOrder ed By: Martha Long on 01-23-2025 Glucose Ql (U) Normal mg/dl Normal [facility] Urine leukocyte esterase det ection by dipstickOrdered By: Martha Long on 01-23-2025 Leukocyte esterase Test strip Ql (U) Negative Negative [facility] Urine pHOrdered By: Martha bay on 01-23-2025 pH (U) 6.0 [pH] 5.0 - 8.0 [facility] Urine sediment bacteria coun t by microscopy (number/high power field)Ordered By: Martha Long on 01-23-2025 Bacteria LM.HPF (Urine sed) [#/Area] 1 /[HPF] None Seen [facility] Urine specific gravity measu rementOrdered By: Martha Long on 01-23-2025 Specific gravity (U) [Rel density] 1.020 1.002-1.030 [facility] Urine urobilinogen measureme ntOrdered By: Martha Long on 01-23-2025 Urobilinogen Ql (U) Normal mg/dl Normal [facility] Urobilinogen Ql (U)Ordered B y: Martha Long on 01-23-2025 Urine Urobilinogen Normal mg/dl Normal [facility] Venous Duplex US - Henrry Extre mon 01-23-2025 Venous Duplex US - Henrry Extrem Normal [facility] White blood cell countOrdere d By: Martha Long on 01-23-2025 Urine WBC 0-5 SEEN /hpf 0-5 [facility] White blood cell count 0-5 SEEN /hpf 0-5 [facility] .Auto Diffon 01-17-2025 Basophil, Absolute 0.1 10 3/mcL Normal 0.0-0.2 [facility] Comment on above: Performed By: #### B MP, GFR, CBC, CRP, ADIFF, ANEU, ESR #### [address] [address] Basophils/100 WBC (Bld) 0.6 % Normal 0.0-2.5 [facility] Comment on above: Performed By: #### B MP, GFR, CBC, CRP, ADIFF, ANEU, ESR #### [address] [address] Eosinophil, Absolute 0.3 10 3/mcL Normal 0.0-0.7 [facility] Comment on above: Performed By: #### B MP, GFR, CBC, CRP, ADIFF, ANEU, ESR #### [address] [address] Eosinophils/100 WBC (Bld) 3.2 % Normal 0.0-7.0 [facility] Comment on above: Performed By: #### B MP, GFR, CBC, CRP, ADIFF, ANEU, ESR #### [address] [address] Lymphocyte, Absolute 1.2 10 3/mcL Normal 0.9-4.3 [facility] Comment on above: Performed By: #### B MP, GFR, CBC, CRP, ADIFF, ANEU, ESR #### [address] [address] Lymphocytes/100 WBC (Bld) 11.8 % Low 20.0-40.0 [facility] Comment on above: Performed By: #### B MP, GFR, CBC, CRP, ADIFF, ANEU, ESR #### [address] [address] Monocyte, Absolute 1.0 10 3/mcL Normal 0.1-1.4 [facility] Comment on above: Performed By: #### B MP, GFR, CBC, CRP, ADIFF, ANEU, ESR #### [address] [address] Monocytes/100 WBC (Bld) 9.3 % Normal 2.0-13.0 [facility] Comment on above: Performed By: #### B MP, GFR, CBC, CRP, ADIFF, ANEU, ESR #### [address] [place], [place] [address] Neutrophils/100 WBC (Bld) 75.1 % High 50.0-75.0 [facility] Comment on above: Performed By: #### B MP, GFR, CBC, CRP, ADIFF, ANEU, ESR #### [address] [address] .GFRon 01-17-2025 Estimated Glomerular Filtration Rate 93 ml/min/1.73sqm Normal [facility] Comment on above: Result Comment: Stages of [...] CBC, CRP, ADIFF, ANEU, ESR #### [address] [address] .NEUABSon 01-17-2025 Neutrophil, Absolute 7.8 10 3/mcL Normal 2.3-8.1 [facility] Comment on above: Performed By: #### B MP, GFR, CBC, CRP, ADIFF, ANEU, ESR #### [address] [place], [place] [address] BMPon 01-17-2025 BUN/Creatinine Ratio 24 ratio Normal 7-27 [facility] Comment on above: Performed By: #### B MP, GFR, CBC, CRP, ADIFF, ANEU, ESR #### [address] [place], [place] [address] Calcium [Mass/Vol] 9.3 mg/dL Normal 8.4-10.2 [facility] Comment on above: Performed By: #### B MP, GFR, CBC, CRP, ADIFF, ANEU, ESR #### [address] [address] Chloride [Moles/Vol] 103 mmol/L Normal 98-107 [facility] Comment on above: Performed By: #### B MP, GFR, CBC, CRP, ADIFF, ANEU, ESR #### [address] [address] CO2 [Moles/Vol] 30 mmol/L Normal 23-31 [facility] Comment on above: Performed By: #### B MP, GFR, CBC, CRP, ADIFF, ANEU, ESR #### [address] [address] Creatinine [Mass/Vol] 0.67 mg/dL Normal 0.55-1.02 [facility] Comment on above: Result Comment: Test ing performed on Siemens Dimension EXL analyzer using a modified kinetic Ollie technique. Performed By: #### B MP, GFR, CBC, CRP, ADIFF, ANEU, ESR #### [address] [address] Electrolyte Balance 7.0 mEq/L Normal 4.0-15.0 [facility] Comment on above: Performed By: #### B MP, GFR, CBC, CRP, ADIFF, ANEU, ESR #### [address] [address] Glucose [Mass/Vol] 108 mg/dL Normal 83-110 [facility] Comment on above: Performed By: #### B MP, GFR, CBC, CRP, ADIFF, ANEU, ESR #### [address] [address] Potassium [Moles/Vol] 4.2 mmol/L Normal 3.5-5.1 [facility] Comment on above: Performed By: #### B MP, GFR, CBC, CRP, ADIFF, ANEU, ESR #### [place] [id number] Sodium [Moles/Vol] 140 mmol/L Normal 136-145 [facility] Comment on above: Performed By: #### B MP, GFR, CBC, CRP, ADIFF, ANEU, ESR #### [place] [address] Urea nitrogen [Mass/Vol] 16 mg/dL Normal 7-18 [facility] Comment on above: Performed By: #### B MP, GFR, CBC, CRP, ADIFF, ANEU, ESR #### [place] [id number] CBCon 01-17-2025 Erythrocyte distribution width (RBC) [Ratio] 13.6 % Normal 11.5-15.5 [facility] Comment on above: Performed By: #### B MP, GFR, CBC, CRP, ADIFF, ANEU, ESR #### [place] [address] Hematocrit (Bld) [Volume fraction] 37.7 % Normal 34.0-46.0 [facility] Comment on above: Performed By: #### B MP, GFR, CBC, CRP, ADIFF, ANEU, ESR #### [address] [address] Hgb 12.8 G/dL Normal 12.0-16.0 [facility] Comment on above: Performed By: #### B MP, GFR, CBC, CRP, ADIFF, ANEU, ESR #### [address] [address] MCH (RBC) [Entitic mass] 29.8 pg Normal 27.0-33.0 [facility] Comment on above: Performed By: #### B MP, GFR, CBC, CRP, ADIFF, ANEU, ESR #### [place] [address] MCHC 33.9 G/dL Normal 32.0-36.0 [facility] Comment on above: Performed By: #### B MP, GFR, CBC, CRP, ADIFF, ANEU, ESR #### [place] [phone] MCV (RBC) [Entitic vol] 87.8 fL Normal 80.0-99.0 [facility] Comment on above: Performed By: #### B MP, GFR, CBC, CRP, ADIFF, ANEU, ESR #### [address] [address] Platelet 228 10 3/mcL Normal 150-450 [facility] Comment on above: Performed By: #### B MP, GFR, CBC, CRP, ADIFF, ANEU, ESR #### [place] [address] Platelet mean volume (Bld) [Entitic vol] 8.5 fL Normal 6.6-10.5 [facility] Comment on above: Performed By: #### B MP, GFR, CBC, CRP, ADIFF, ANEU, ESR #### [place] [id number] RBC 4.29 10 6/mcL Normal 4.10-5.30 [facility] Comment on above: Performed By: #### B MP, GFR, CBC, CRP, ADIFF, ANEU, ESR #### [address] [address] WBC 10.4 10 3/mcL Normal 4.5-10.8 [facility] Comment on above: Performed By: #### B MP, GFR, CBC, CRP, ADIFF, ANEU, ESR #### [address] [address] CRPon 01-17-2025 C-Reactive Protein 0.6 mg/dL High 0.0-0.3 [facility] Comment on above: Performed By: #### B MP, GFR, CBC, CRP, ADIFF, ANEU, ESR #### [address] [address] ESRon 01-17-2025 Erythrocyte Sed Rate 14 mm/hr Normal 0-30 [facility] Comment on above: Performed By: #### B MP, GFR, CBC, CRP, ADIFF, ANEU, ESR #### [address] [address] LABORATORYOrdered By: SYSTEM SYSTEM on 01-17-2025 Basophils [...] above: Interpretive Data: T esting performed on [address] [employer] Dimension EXL analyzer using a modified kinetic [...] Comment on above: Result Comment: [place] [id number] MRSA PCR Int MRSA DNA not detecte [...] MRSA (PCR) Not detected Normal Not Detected [facility] Comment on above: Result Comment: [place] [id number] Performed By: #### M RSAPCR #### [address] [address] MRSA PCR Int Normal [facility] Comment on above: Result Comment: MRSA DNA [...] Below Performed By: #### M RSAPCR #### [address] [address] [address] KNEE W/O CONTRAST LEFTon 10-23-2024 CT KNEE W/O CONTRAST LEFT ORIGINAL EXAMINATION: CT OF THE LEFT KNEE WITHOUT VJFKRTVR37/25/2024 9:[address] KNEE LEFT WITHOUT CONTRAST [...] most pronounced in the medial compartment with [id number], subchondral sclerosis, subchondral cysts and marginal osteophyte [...] 4:58:41 PM Ordering Provider: BRIA GAN Normal [facility] CBC W Auto Differential pane l (Bld)on 10-18-2024 Basophils (Bld) [#/Vol] 0.06 x10*3/uL Normal 0.00-0.10 [facility] Comment on above: Performed By: #### 5 7021-8 #### PAT YUEN L ([id number]) [facility] ([facility]) [address] [place] [address] Basophils/100 WBC (Bld) 0.9 % Normal 0.0-2.0 [facility] Comment on above: Performed By: #### 5 7021-8 #### PAT YUEN L ([id number]) [facility] ([facility]) [address] [place] [address] Eosinophils (Bld) [#/Vol] 0.24 x10*3/uL Normal 0.00-0.40 [facility] Comment on above: Performed By: #### 5 7021-8 #### PAT Smith ([id number]) [facility] ([facility]) [address] [place] [address] Eosinophils/100 WBC (Bld) 3.7 % Normal 0.0-6.0 [facility] Comment on above: Performed By: #### 5 7021-8 #### PAT Smith ([id number]) [facility] ([facility]) [address] [place] [address] Erythrocyte distribution width (RBC) [Ratio] 13.0 % Normal 11.5-14.5 [facility] Comment on above: Performed By: #### 5 7021-8 #### PAT Smith ([id number]) [facility] ([facility]) [address] [place] [address] Hematocrit (Bld) [Volume fraction] 43.7 % Normal 36.0-46.0 [facility] Comment on above: Performed By: #### 5 7021-8 #### PAT Smith ([id number]) [facility] ([facility]) [address] [place] [address] Hemoglobin (Bld) [Mass/Vol] 14.1 g/dL Normal 12.0-16.0 [facility] Comment on above: Performed By: #### 5 7021-8 #### PAT Smith ([id number]) [facility] ([facility]) [address] [place] [address] Immature granulocytes (Bld) [#/Vol] 0.02 x10*3/uL Normal 0.00-0.50 [facility] Comment on above: Performed By: #### 5 7021-8 #### PAT Smith ([id number]) [facility] ([facility]) [address] [place] [address] Immature granulocytes/100 WBC (Bld) 0.3 % Normal 0.0-0.9 [facility] Comment on above: Result Comment: Sandra ture Granulocyte Count (IG) includes promyelocytes, myelocytes and metamyelocytes but does not include bands. Percent differential counts (%) should be interpreted in the context of the absolute cell counts (cells/UL). Performed By: #### 5 7021-8 #### PAT Smith ([id number]) [facility] ([facility]) [address] [place] [address] Lymphocytes (Bld) [#/Vol] 1.36 x10*3/uL Normal 0.80-3.00 [facility] Comment on above: Performed By: #### 5 7021-8 #### PAT Smith ([id number]) [facility] ([facility]) [address] [place] [address] Lymphocytes/100 WBC (Bld) 20.7 % Normal 13.0-44.0 [facility] Comment on above: Performed By: #### 5 7021-8 #### PAT Smith ([id number]) [facility] ([facility]) [address] [place] [address] MCH (RBC) [Entitic mass] 29.1 pg Normal 26.0-34.0 [facility] Comment on above: Performed By: #### 5 7021-8 #### PAT Smith ([id number]) [facility] ([facility]) [address] [place] [address] MCHC (RBC) [Mass/Vol] 32.3 g/dL Normal 32.0-36.0 [facility] Comment on above: Performed By: #### 5 7021-8 #### PAT Smith ([id number]) [facility] ([facility]) [address] [place] [address] MCV (RBC) [Entitic vol] 90 fL Normal 80-100 [facility] Comment on above: Performed By: #### 5 7021-8 #### PAT Smith ([id number]) [facility] ([facility]) [id number] [place] [address] Monocytes (Bld) [#/Vol] 0.63 x10*3/uL Normal 0.05-0.80 [facility] Comment on above: Performed By: #### 5 7021-8 #### PAT Smith ([id number]) [facility] ([facility]) [address] [place] [address] Monocytes/100 WBC (Bld) 9.6 % Normal 2.0-10.0 [facility] Comment on above: Performed By: #### 5 7021-8 #### PAT YUEN L ([id number]) [facility] ([facility]) [address] [place] [address] Neutrophils (Bld) [#/Vol] 4.25 x10*3/uL Normal 1.60-5.50 [facility] Comment on above: Result Comment: Perc ent differential counts (%) should be interpreted in the context of the absolute cell counts (cells/uL). Performed By: #### 5 7021-8 #### PAT YUEN L ([id number]) [facility] ([facility]) [address] [place] [address] Neutrophils/100 WBC (Bld) 64.8 % Normal 40.0-80.0 [facility] Comment on above: Performed By: #### 5 7021-8 #### PAT YUEN L ([id number]) [facility] ([facility]) [address] [place] [address] Nucleated RBC/100 WBC (Bld) [Ratio] 0.0 /100 WBCs Normal 0.0-0.0 [facility] Comment on above: Performed By: #### 5 7021-8 #### PAT ESOMOTZER L ([id number]) [facility]) [address] [place] [address] Platelets (Bld) [#/Vol] 243 x10*3/uL Normal 150-450 [facility] Comment on above: Performed By: #### 5 7021-8 #### PAT SEOMOTZER L ([id number]) [facility]) [address] [place] [address] RBC (Bld) [#/Vol] 4.84 x10*6/uL Normal 4.00-5.20 [facility] Comment on above: Performed By: #### 5 7021-8 #### PAT Smith ([id number]) [facility]) [address] [place] [address] WBC (Bld) [#/Vol] 6.6 x10*3/uL Normal 4.4-11.3 [facility] Comment on above: Performed By: #### 5 7021-8 #### PAT Smith ([id number]) [facility]) [id number] [place] [address] Comprehensive metabolic 2000 panelon 10-18-2024 Albumin BCP dye [Mass/Vol] 4.4 g/dL Normal 3.4-5.0 [facility] Comment on above: Performed By: #### 2 4323-8 #### PAT Smith ([id number]) [facility] ([facility]) [id number] [place] [address] ALP [Catalytic activity/Vol] 71 U/L Normal 33-136 [facility] Comment on above: Performed By: #### 2 4323-8 #### PAT Smith ([id number]) [facility] ([facility]) [address] [place] [address] ALT With P-5'-P [Catalytic activity/Vol] 15 U/L Normal 7-45 [facility] Comment on above: Result Comment: Alexsandra ents treated with Sulfasalazine may generate falsely decreased results for ALT. Performed By: #### 2 4323-8 #### PAT Smith ([id number]) [facility] ([facility]) [address] [place] [address] Anion gap [Moles/Vol] 13 mmol/L Normal 10-20 [facility] Comment on above: Performed By: #### 2 4323-8 #### PAT Smith ([id number]) [facility] ([facility]) [address] [place] [address] AST With P-5'-P [Catalytic activity/Vol] 15 U/L Normal 9-39 [facility] Comment on above: Performed By: #### 2 4323-8 #### PAT Smith ([id number]) [facility] ([facility]) [address] [place] [address] Bilirubin [Mass/Vol] 0.5 mg/dL Normal 0.0-1.2 [facility] Comment on above: Performed By: #### 2 4323-8 #### PAT Smith ([id number]) [facility] ([facility]) [address] [place] [address] Calcium [Mass/Vol] 9.5 mg/dL Normal 8.6-10.6 [facility] Comment on above: Performed By: #### 2 4323-8 #### PAT Smith ([id number]) [facility] ([facility]) [address] [place] [address] Chloride [Moles/Vol] 103 mmol/L Normal 98-107 [facility] Comment on above: Performed By: #### 2 4323-8 #### PAT Smith ([id number]) [facility] ([facility]) [address] [place] [address] CO2 [Moles/Vol] 27 mmol/L Normal 21-32 [facility] Comment on above: Performed By: #### 2 4323-8 #### PAT Smith ([id number]) [facility] ([facility]) [address] [place] [address] Creatinine [Mass/Vol] 0.65 mg/dL Normal 0.50-1.05 [facility] Comment on above: Performed By: #### 2 4323-8 #### PAT Smith ([id number]) [facility] ([facility]) [address] [place] [address] GFR/1.73 sq M.predicted MDRD (S/P/Bld) [Vol rate/Area] mL/min/{1.73_m2} Normal >60 [facility] Comment on above: Result Comment: Calc ulations of estimated GFR are performed using the 2020 CKD-EPI Study Refit equation without the race variable for the IDMS-Traceable creatinine methods. https://jasn.asnjournals.org/content//ASN.2020 447504 Performed By: #### 2 4323-8 #### PAT Smith ([id number]) [facility] ([facility]) [address] [place] [address] Glucose [Mass/Vol] 96 mg/dL Normal 74-99 [facility] Comment on above: Performed By: #### 2 4323-8 #### PAT Smith ([id number]) [facility] ([facility]) [address] [place] [address] Potassium [Moles/Vol] 4.4 mmol/L Normal 3.5-5.3 [facility] Comment on above: Performed By: #### 2 4323-8 #### PAT Smith ([id number]) [facility] ([facility]) [address] [place] [address] Protein [Mass/Vol] 7.2 g/dL Normal 6.4-8.2 [facility] Comment on above: Performed By: #### 2 4323-8 #### PAT Smith ([id number]) [facility] ([facility]) [address] [place] [address] Sodium [Moles/Vol] 139 mmol/L Normal 136-145 [facility] Comment on above: Performed By: #### 2 4323-8 #### PAT Smith ([id number]) [facility] ([facility]) [id number] [place] [address] Urea nitrogen [Mass/Vol] 14 mg/dL Normal 6-23 [facility] Comment on above: Performed By: #### 2 4323-8 #### PAT Smith ([id number]) [facility] ([facility]) [address] [place] [address] Lipid 1996 panelon 4 Cholesterol [Mass/Vol] 282 mg/dL High 0-[address] [facility] Comment on above: Result Comment: Age [...] By: #### 2 4331-1 #### PAT Smith ([id number]) [facility] ([facility]) [address] [place] [address] Cholesterol in HDL [Mass/Vol] 63.4 mg/dL Normal [facility] Comment on above: Result Comment: Age Very Low Low Normal High 0-19 Y < 35 < 40 40-45 ---- 20-24 Y ---- < 40 >45 ---- >24 Y ---- < 40 40-60 >60 Performed By: #### 2 4331-1 #### PAT Smith ([id number]) [facility] ([facility]) [address] [place] [address] Cholesterol in LDL [Mass/Vol] 199 mg/dL High <=99 [facility] Comment on above: Result Comment: Near Borderline AGE Desirable Optimal High High Very High 0-19 Y 0 - 109 --- 110-129 >/= 130 ---- 20-24 Y 0 - 119 --- 120-159 >/= 160 ---- >24 Y 0 - 99 100-129 130-159 160-189 >/=190 Performed By: #### 2 4331-1 #### PAT Smith ([id number]) [facility] ([facility]) [address] [place] [address] Cholesterol in VLDL [Mass/Vol] 19 mg/dL Normal 0-40 [facility] Comment on above: Performed By: #### 2 4331-1 #### PAT Smith ([id number]) [facility] ([facility]) [address] [place] [address] CHOLESTEROL/HDL RATIO 4.4 Normal [facility] Comment on above: Result Comment: Ref Values Desirable < 3.4 High Risk > 5.0 Performed By: #### 2 4331-1 #### PAT Smith ([id number]) [facility] ([facility]) [address] [place] [address] NON HDL CHOLESTEROL 219 mg/dL High 0-149 [facility] Comment on above: Result Comment: Age Desirable Borderline High High Very High 0-19 Y 0 - 119 120 - 144 >/= 145 >/= 160 20-24 Y 0 - 149 150 - 189 >/= 190 ---- >24 Y 30 mg/dL above LDL Cholesterol goal Performed By: #### 2 4331-1 #### PAT Smith ([id number]) [facility] ([facility]) [address] [place] [address] Triglyceride [Mass/Vol] 97 mg/dL Normal 0-149 [facility] Comment on above: Result Comment: Age [...] By: #### 2 4331-1 #### PAT Smith ([id number]) [facility] ([facility]) [address] [place] [address] TSH WITH REFLEX TO FREE T4 I F ABNORMALon 10-18-2024 TSH Qn 1.15 m[IU]/L Normal 0.44-3.98 [facility] Comment on above: Order Comment: TSH t esting is performed using different testing methodology at [facility] than at other [facility]. Direct result comparisons should only be made within the same method. Performed By: #### T HYDS #### PAT Smith ([id number]) [facility] ([facility]) [address] [place] [address] CBC AND DIFFERENTIALon 08-10 % AUTOMATED IMMATURE GRAN 0.3 % Normal 0.0 - 0.9 [facility] Comment on above: Result Comment: Perc ent differential counts (%) should be interpreted in the context of the absolute cell counts (cells/L). Performed By: #### C BCDF #### [facility] [address] [place] [address] Basophils (Bld) [#/Vol] 0.07 10*3/uL Normal 0.00 - 0.1 0 [facility] Comment on above: Performed By: #### C BCDF #### [facility] [address] [place] [address] Basophils/100 WBC (Bld) 1.0 % Normal 0.0 - 2.[address] [facility] Comment on above: Performed By: #### C BCDF #### [facility] [address] [place] [address] Eosinophils (Bld) [#/Vol] 0.17 10*3/uL Normal 0.00 - 0.70 [facility] Comment on above: Performed By: #### C BCDF #### [facility] [address] [place] [address] Eosinophils/100 WBC (Bld) 2.3 % Normal 0.0 - 6.0 [facility] Comment on above: Performed By: #### C BCDF #### [facility] [address] [place] [address] Erythrocyte distribution width (RBC) [Ratio] 13.3 % Normal 11.5 - 14.5 [facility] Comment on above: Performed By: #### C BCDF #### [facility] [address] [place] [address] Hematocrit (Bld) [Volume fraction] 44.5 % Normal 36.0 - 46.0 [facility] Comment on above: Performed By: #### C BCDF #### [facility] [address] [place] [address] Hemoglobin (Bld) [Mass/Vol] 14.0 g/dL Normal 12.0 - 16.0 [facility] Comment on above: Performed By: #### C BCDF #### [facility] [address] [place] [address] Lymphocytes (Bld) [#/Vol] 1.44 10*3/uL Normal 1.20 - 4.80 [facility] Comment on above: Performed By: #### C BCDF #### [facility] [address] [place] [address] Lymphocytes/100 WBC (Bld) 19.7 % Normal 13.0 - 44.0 [facility] Comment on above: Performed By: #### C BCDF #### [facility] [address] [place] [address] MCHC (RBC) [Mass/Vol] 31.5 g/dL Low 32.0 - 36.0 [facility] Comment on above: Performed By: #### C BCDF #### [facility] [address] [place] [address] MCV (RBC) [Entitic vol] 92 fL Normal 80 - 100 [facility] Comment on above: Performed By: #### C BCDF #### [facility] [address] [place] [address] Monocytes (Bld) [#/Vol] 0.76 10*3/uL Normal 0.10 - 1.0 0 [facility] Comment on above: Performed By: #### C BCDF #### [facility] [address] [place] [address] Monocytes/100 WBC (Bld) 10.4 % Normal 2.0 - 10.0 [facility] Comment on above: Performed By: #### C BCDF #### [facility] [address] [place] [address] Neutrophils (Bld) [#/Vol] 4.86 10*3/uL Normal 1.20 - 7.70 [facility] Comment on above: Performed By: #### C BCDF #### [facility] [address] [place] [address] Neutrophils/100 WBC (Bld) 66.3 % Normal 40.0 - 80.0 [facility] Comment on above: Performed By: #### C BCDF #### [facility] [address] [place] [address] Nucleated RBC/100 WBC (Bld) [Ratio] 0.0 /100 WBC Normal 0.0-0.0 [facility] Comment on above: Performed By: #### C BCDF #### [facility] [address] [place] [address] Platelets (Bld) [#/Vol] 232 10*3/uL Normal 150 - 450 [facility] Comment on above: Performed By: #### C BCDF #### [facility] [address] [place] [address] RBC (Bld) [#/Vol] 4.83 x10E12/L Normal 4.00 - 5.20 [facility] Comment on above: Performed By: #### C BCDF #### [facility] [address] [place] [address] WBC (Bld) [#/Vol] 7.3 10*3/uL Normal 4.4 - 11.3 [facility] Comment on above: Performed By: #### C BCDF #### [facility] [address] [place] [address] COMPREHENSIVE PANELon 2018 Albumin [Mass/Vol] 4.1 g/dL Normal 3.4 - 5.0 [facility] Comment on above: Performed By: #### C MP #### [facility] [address] [place] [address] ALT [Catalytic activity/Vol] 19 U/L Normal 7 - 45 [facility] Comment on above: Result Comment: Alexsandra ents treated with Sulfasalazine may generate falsely decreased results for ALT. Performed By: #### C MP #### [facility] [address] [place] [address] AST [Catalytic activity/Vol] 19 U/L Normal 9 - 39 [facility] Comment on above: Performed By: #### C MP #### [facility] [address] [place] [address] GFR- AM. >60 Normal >60 [facility] Comment on above: Result Comment: CALC ULATIONS OF ESTIMATED GFR ARE PERFORMED USING THE MDRD STUDY EQUATION FOR THE IDMS-TRACEABLE CREATININE METHODS. CLIN CHEM 2007;53:766-72 Performed By: #### C MP #### [facility] [address] [place] [address] GFR-NON AM. >60 Normal >60 [facility] Comment on above: Performed By: #### C MP #### [facility] [address] [place] [address] HCO3 (Bld) [Moles/Vol] 29 mmol/L Normal 21 - 32 [facility] Comment on above: Performed By: #### C MP #### [facility] [address] [place] [address] ALP [Catalytic activity/Vol] 87 U/L 33 - 136 [facility] Comment on above: Performed By: #### C MP #### [facility] [address] [place] [address] Anion gap [Moles/Vol] 10 mmol/L 10 - 20 [facility] Comment on above: Performed By: #### C MP #### [facility] [address] [place] [address] Bilirubin [Mass/Vol] 0.4 mg/dL 0.0 - 1.2 [facility] Comment on above: Performed By: #### C MP #### [facility] [address] [place] [address] Calcium [Mass/Vol] 9.3 mg/dL 8.6 - 10.6 [facility] Comment on above: Performed By: #### C MP #### [facility] [address] [place] [address] Chloride [Moles/Vol] 106 mmol/L 98 - 107 [facility] Comment on above: Performed By: #### C MP #### [facility] [address] [place] [address] Creatinine [Mass/Vol] 0.66 mg/dL See Below [facility] Comment on above: Performed By: #### C MP #### [facility] [address] [place] [address] Reference Range: 0.5 0 - 1.05 Glucose [Mass/Vol] 95 mg/dL 74 - 99 [facility] Comment on above: Performed By: #### C MP #### [facility] [address] [place] [address] Potassium [Moles/Vol] 4.2 mmol/L 3.5 - 5.3 [facility] Comment on above: Performed By: #### C MP #### [facility] [address] [place] [address] Protein [Mass/Vol] 7.0 g/dL 6.4 - 8.2 [facility] Comment on above: Performed By: #### C MP #### [facility] [address] [place] [address] Sodium [Moles/Vol] 141 mmol/L 136 - 145 [facility] Comment on above: Performed By: #### C MP #### [facility] [address] [place] [address] Urea nitrogen [Mass/Vol] 12 mg/dL 6 - 23 [facility] Comment on above: Performed By: #### C MP #### [facility] [address] [place] [address] Complete Blood Count + Diffe rentialon 08-10-2019 Basophils (Bld) [#/Vol] 0.07 {x10E9/L} See Belo w [facility] Work Phone: Comment on above: Reference Range: 0.0 0 - 0.10 Basophils/100 WBC (Bld) 1.0 % 0.0 - 2.0 M [facility] Work Phone: Eosinophils (Bld) [#/Vol] 0.17 {x10E9/L} See Below [facility] Work Phone: Comment on above: Reference Range: 0.0 0 - 0.70 Eosinophils/100 WBC (Bld) 2.3 % 0.0 - 6.0 [facility] Work Phone: Erythrocyte distribution width (RBC) [Ratio] 13.3 % See Below [facility] Work Phone: Comment on above: Reference Range: 11. 5 - 14.5 Hematocrit (Bld) [Volume fraction] 44.5 % See Below [facility] Work Phone: Comment on above: Reference Range: 36. 0 - 46.0 Hemoglobin (Bld) [Mass/Vol] 14.0 g/dL See Below [facility] Work Phone: Comment on above: Reference Range: 12. 0 - 16.0 Lymphocytes (Bld) [#/Vol] 1.44 {x10E9/L} See Below [facility] Work Phone: Comment on above: Reference Range: 1.2 0 - 4.80 Lymphocytes/100 WBC (Bld) 19.7 % See Below [facility] Work Phone: Comment on above: Reference Range: 13. 0 - 44.0 MCHC (RBC) [Mass/Vol] 31.5 g/dL below low threshold See Below [facility] Work Phone: Comment on above: Reference Range: 32. 0 - 36.0 MCV (RBC) [Entitic vol] 92 fL 80 - 100 M [facility] Work Phone: Monocytes (Bld) [#/Vol] 0.76 {x10E9/L} See Edd w [facility] Work Phone: Comment on above: Reference Range: 0.1 0 - 1.00 Monocytes/100 WBC (Bld) 10.4 % 2.0 - 10.0 [facility] Work Phone: Neutrophils (Bld) [#/Vol] 4.86 {x10E9/L} See Below [facility] Work Phone: Comment on above: Reference Range: 1.2 0 - 7.70 Neutrophils/100 WBC (Bld) 66.3 % See Below [facility] Work Phone: Comment on above: Reference Range: 40. 0 - 80.0 Platelets (Bld) [#/Vol] 232 {x10E9/L} 150 - 450 [facility] Work Phone: RBC (Bld) [#/Vol] 4.83 {x10E12/L} See Below [facility] Work Phone: Comment on above: Reference Range: 4.0 0 - 5.20 WBC (Bld) [#/Vol] 7.3 {x10E9/L} 4.4 - 11.3 [facility] Work Phone: WBC (Bld) [#/Vol] 0.0 {/100_WBC} 0.0-0.0 [facility] Work Phone: Complete Blood Count + Differential 0.3 % 0.0 - 0.9 -[facility] Work Phone: Comment on above: Percent differential counts (%) should be interpreted in the context of the absolute cell counts (cells/L). LIPID PANEL (CORONARY RISK 2 )on 08-10-2019 Cholesterol in VLDL [Mass/Vol] 17 mg/dL Normal 0 - 40 [facility] Comment on above: Performed By: #### L IPID #### [facility] [address] [place] [id number] Cholesterol [Mass/Vol] 206 mg/dL above hig h threshold 0 - 199 [facility] Comment on above: Result Comment: . AGE [...] dosing. Performed By: #### L IPID #### [facility] [address] [place] [address] . AGE DESIRABLE BORD CATHLEEN HIGH HIGH [...] dosing. Cholesterol in HDL [Mass/Vol] 46.7 mg/dL [facility] Comment on above: Result Comment: . AGE VERY LOW LOW NORMAL HIGH 0-19 Y < 35 < 40 40-45 ---- 20-24 Y ---- < 40 >45 ---- >24 Y ---- < 40 40-60 >60 . Performed By: #### L IPID #### [facility] [address] [place] [id number] . AGE VERY LOW LOW N ORMAL HIGH 0-19 Y < 35 < 40 40-45 ---- 20-24 Y ---- < 40 >45 ---- >24 Y ---- < 40 40-60 >60. Cholesterol in LDL [Mass/Vol] 142 mg/dL above high threshold 0 - 99 [facility] Comment on above: Result Comment: . NEAR BORD AGE DESIRABLE OPTIMAL HIGH HIGH VERY HIGH 0-19 Y 0 - 109 --- 110-129 >/= 130 ---- 20-24 Y 0 - 119 --- 120-159 >/= 160 ---- >24 Y 0 - 99 100-129 130-159 160-189 >/=190 . Performed By: #### L IPID #### [facility] [address] [place] [id number] . NEAR BORD AGE CHADWICK RABLE OPTIMAL HIGH HIGH VERY HIGH 0-19 Y 0 - 109 --- 110-129 >/= 130 ---- 20-24 Y 0 - 119 --- 120-159 >/= 160 ---- >24 Y 0 - 99 100-129 130-159 160-189 >/=190. Cholesterol.total/Mari sterol in HDL [Mass ratio] 4.4 {ratio} [facility] Comment on above: Result Comment: REF VALUES DESIRABLE < 3.4 HIGH RISK > 5.0 Performed By: #### L IPID #### [facility] [address] [place] [id number] REF VALUESDESIRABLE < 3.4HIGH RISK > 5.0 Triglyceride [Mass/Vol] 85 mg/dL 0 - 149 [facility] Comment on above: Result Comment: . AGE [...] Performed By: #### L IPID #### [facility] [address] [place] [address] . AGE DESIRABLE BORD CATHLEEN HIGH HIGH [...] Lipid Panel 17 mg/dL 0 - 40 [facility] [employer] Work Phone: Metabolic Panelon 08-10-2019 CO2 [Moles/Vol] 29 mmol/L 21 - 32 [facility] [employer] Work Phone: Otheron 08-10-2019 Albumin BCP dye [Mass/Vol] 4.1 g/dL 3.4 - 5.0 [facility] [employer] Work Phone: ALT With P-5'-P [Catalytic activity/Vol] 19 U/L 7 - 45 [facility] [employer] Work Phone: Comment on above: Patients treated wit h Sulfasalazine may generate falsely decreased results for ALT. AST With P-5'-P [Catalytic activity/Vol] 19 U/L 9 - 39 [facility] [employer] Work Phone: >60 >60 [facility] [employer] Work Phone: Comment on above: CALCULATIONS OF CHALINO MATED GFR ARE PERFORMED USING THE MDRD STUDY EQUATION FOR THE IDMS-TRACEABLE CREATININE METHODS. CLIN CHEM 2007;53:766-72 TSHon 08-10-2019 TSH Qn 0.99 m[IU]/L Normal 0.44 - 3.98 [facility] Comment on above: Result Comment: TSH testing is performed using different testing methodology at [facility] than at other [facility]. Direct result comparisons should only be made within the same method. . Patients receiving more than 5 mg/day of biotin may have interference in test results. A sample should be taken no sooner than eight hours after previous dose. Contact [phone] for additional information. Performed By: #### T SH2 #### [facility] [address] [place] [address] TSH - Thyroid Stimulating Ho rmone, Serumon 08-10-2019 TSH Qn 0.99 {mIU/L} See Below [facility] Work Phone: Comment on above: Reference Range: 0.4 4 - 3.98 TSH testing is performed using different testing methodology at [facility] than at other [facility]. Direct result comparisons should only be made within the same method.. Patients receiving more than 5 mg/day of biotin may have interference in test results. A sample should be taken no sooner than eight hours after previous dose. Contact [phone] for additional information. UA MICROSCOPICon 08-10-2019 HYALINE CAST OCC Abnormal [facility] Comment on above: Performed By: #### U AMIC #### [facility] [address] [place] [address] RBC 2 /HPF Normal 0-5 [facility] [facility] Comment on above: Performed By: #### U AMIC #### [facility] [address] [place] [address] SQUAMOUS EPITH. CELLS 1 /HPF Normal [facility] Comment on above: Performed By: #### U AMIC #### [facility] [address] [place] [address] WBC 1 /HPF Normal 0-5 [facility] Comment on above: Performed By: #### U AMIC #### [facility] [address] [place] [address] URINALYSISon 08-10-2019 Appearance (U) HAZY Normal CLEAR [facility] Comment on above: Performed By: #### U A #### [facility] [address] [place] [address] Bilirubin (U) [Mass/Vol] Negative Normal NEGATIVE [facility] Comment on above: Performed By: #### U A #### [facility] [address] [place] [address] BLOOD Negative Normal NEGATIVE [facility] Comment on above: Performed By: #### U A #### [facility] [address] [place] [address] Color (U) YELLOW Normal STRAW,YELLOW [facility] Comment on above: Performed By: #### U A #### [facility] [address] [place] [address] Glucose [Mass/Vol] Negative Normal NEGATIVE [facility] Comment on above: Performed By: #### U A #### [facility] [address] [place] [address] Ketones Ql (U) Negative Normal NEGATIVE [facility] Comment on above: Performed By: #### U A #### [facility] [address] [place] [address] Leukocyte esterase Test strip Ql (U) SMALL (1+) Abnormal NEGATIVE [facility] Comment on above: Performed By: #### U A #### [facility] [address] [place] [address] Nitrite Ql (U) Negative Normal NEGATIVE [facility] Comment on above: Performed By: #### U A #### [facility] [address] [place] [address] pH (Bld) 8.0 Normal 5.0 - 8.0 [facility] Comment on above: Performed By: #### U A #### [facility] [address] [place] [address] Protein (U) [Mass/Vol] Negative Normal NEGATIVE [facility] Comment on above: Performed By: #### U A #### [facility] [address] [place] [address] Specific gravity (U) [Rel density] 1.009 Normal 1.005 - 1.035 [facility] Comment on above: Performed By: #### U A #### [facility] [address] [place] [address] Urobilinogen Qn (U) <2.0 Normal 0.0 - 1.9 [facility] Comment on above: Performed By: #### U A #### [facility] [address] [place] [address] Urinalysison 08-10-2019 Appearance (U) HAZY CLEAR [facility] Work Phone: Color (U) YELLOW See Below [facility] Work Phone: Comment on above: Reference Range: STR AW,YELLOW Glucose Ql (U) Negative NEGATIVE [facility] Work Phone: Ketones Ql (U) Negative NEGATIVE [facility] Work Phone: Leukocyte esterase Test strip Ql (U) SMALL (1+) Abnormal [facility]GATIVE [facility] Work Phone: pH (U) 8.0 [pH] 5.0 - 8.0 [facility] Work Phone: Protein (U) [Mass/Vol] Negative NEGATIVE [facility] Work Phone: RBC (U) [#/Vol] Negative NEGATIVE [facility] Work Phone: Specific gravity (U) [Rel density] 1.009 See Below [facility] Work Phone: Comment on above: Reference Range: 1.0 05 - 1.035 Urinalysis Negative NEGATIVE [facility] Work Phone: Urinalysis <2.0 0.0 - 1.9 [facility] Work Phone: Urinalysis, Microscopicon Urinalysis, Microscopic 1 {/HPF} [facility] Work Phone: Urinalysis, Microscopic 2 {/HPF} 0-5 [facility] Work Phone: Urinalysis, Microscopic OCC Abnormal [facility] Work Phone: VITAMIN D, 25-HYDROXYon 07-30 VITAMIN D, 25-HYDROXY 89 ng/mL Abnormal [facility] Comment on above: Result Comment: . DEFICIENCY: < 20 NG/ML INSUFFICIENCY: 20-29 NG/ML OPTIMUM LEVEL: 30-80 NG/ML POSSIBLE TOXICITY: > 80 NG/ML THIS ASSAY ACCURATELY QUANTIFIES THE SUM OF VITAMIN D3, 25-HYDROXY AND VIT D2,25-HYDROXY. Performed By: #### V TDOH #### [facility] [address] [place] [address] Vitamin D 25-Hydroxyon 08-10 Calcidiol [Mass/Vol] 89 ng/mL Abnormal [facility] Work Phone: Comment on above: .DEFICIENCY: < 20 NG /MLINSUFFICIENCY: 20-29 NG/MLOPTIMUM LEVEL: 30-80 NG/MLPOSSIBLE TOXICITY: > 80 NG/MLTHIS ASSAY ACCURATELY QUANTIFIES THE SUM OFVITAMIN D3, 25-HYDROXY AND VIT D2,25-HYDROXY. Vital Signs Date Time Vital Sign Value Performing Clinician Facility 05-26-2025 09:38-0400 Body temperature 97.5 [degF] Lori Dale 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 Work Phone: [facility] 05-26-2025 09:38-0400 Diastolic blood pressure 57 mm[Hg] Lori Dale 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 Work Phone: [facility] 05-26-2025 09:38-0400 Heart rate 83 /min Lori Dale 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 Work Phone: [facility] 05-26-2025 09:38-0400 Respiratory rate 16 /min Lori Dale 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 Work Phone: [facility] 05-26-2025 09:38-0400 SaO2% (BldA) [Mass fraction] 94 % Lori Dale 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 Work Phone: [facility] 05-26-2025 09:38-0400 Systolic blood pressure 108 mm[Hg] Lorivern Dale 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 Work Phone: [facility] 05-26-2025 07:36-0400 Inhaled oxygen flow rate 2 L/min Lori Bonillako 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 Work Phone: [facility] 05-23-2025 10:39-0400 Body height 152.4 cm Lori Dale 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 Work Phone: [facility] 05-23-2025 10:39-0400 Body weight 76.02 kg Lori Dale 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 Work Phone: [facility] 05-22-2025 15:00-0400 Body mass index (BMI) [Ratio] 32.9 kg/m2 Lori Dale 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 Work Phone: [facility] 05-14-2025 10:40-0400 Diastolic blood pressure 52 mm[Hg] Lori Jameel 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 Work Phone: [facility] 05-14-2025 10:40-0400 Heart rate 86 /min Lori Jameel 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 Work Phone: [facility] 05-14-2025 10:40-0400 Respiratory rate 16 /min Lori Jameel 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 Work Phone: [facility] 05-14-2025 10:40-0400 Systolic blood pressure 113 mm[Hg] Lori Dale [employer] 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 Work Phone: [facility] 05-14-2025 08:29-0400 Body temperature 97.8 [degF] Lori Dale [employer] 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 Work Phone: [facility] 05-14-2025 08:29-0400 SaO2% (BldA) [Mass fraction] 98 % Lori Dale 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 Work Phone: [facility] 05-14-2025 08:15-0400 Inhaled oxygen flow rate 2 L/min Lori Dale 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 Work Phone: [facility] 05-10-2025 18:20-0400 Body height 152.4 cm Lori Dale 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 Work Phone: [facility] 05-10-2025 18:20-0400 Body mass index (BMI) [Ratio] 32.9 kg/m2 Lori Dale 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 Work Phone: [facility] 05-10-2025 18:20-0400 Body weight 76.5 kg Lori Dale 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 Work Phone: [facility] 04-02-2025 08:06-0400 Body height 152.4 cm Lori Dale [employer] 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 Work Phone: [facility] 04-02-2025 08:06-0400 Body mass index (BMI) [Ratio] 32 kg/m2 Lori Dale [employer] 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 Work Phone: [facility] 04-02-2025 08:06-0400 Body temperature 97.4 [degF] Lori Dale 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 Work Phone: [facility] 04-02-2025 08:06-0400 Body weight 74.38 kg Lori Dale 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 Work Phone: [facility] 04-02-2025 08:06-0400 Diastolic blood pressure 77 mm[Hg] Lori Dale [employer] 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 Work Phone: [facility] 04-02-2025 08:06-0400 Heart rate 82 /min Lori Dale 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 Work Phone: [facility] 04-02-2025 08:06-0400 Inhaled oxygen flow rate 2 L/min Lori Bonillako 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 Work Phone: [facility] 04-02-2025 08:06-0400 Respiratory rate 16 /min Lori Dale [employer] 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 Work Phone: [facility] 04-02-2025 08:06-0400 SaO2% (BldA) [Mass fraction] 98 % Lori Jameel 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 Work Phone: [facility] 04-02-2025 08:06-0400 Systolic blood pressure 115 mm[Hg] Lori Jameel 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 Work Phone: [facility] 02-12-2025 07:41-0400 Body mass index (BMI) [Ratio] 30.4 kg/m2 Lori Dale 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 Work Phone: [facility] 02-12-2025 07:41-0400 Body temperature 97.5 [degF] Lori Dale [employer] 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 Work Phone: [facility] 02-12-2025 07:41-0400 Body weight 70.76 kg Lori Dale [employer] 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 Work Phone: [facility] 02-12-2025 07:41-0400 Diastolic blood pressure 50 mm[Hg] Lori Jameel [employer] 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 Work Phone: [facility] 02-12-2025 07:41-0400 Heart rate 88 /min Lori Jameel 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 Work Phone: [facility] 02-12-2025 07:41-0400 Respiratory rate 18 /min Lori Jameel 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 Work Phone: [facility] 02-12-2025 07:41-0400 SaO2% (BldA) [Mass fraction] 96 % Lori Bonillako 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 Work Phone: [facility] 02-12-2025 07:41-0400 Systolic blood pressure 104 mm[Hg] Lori Jameel 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 Work Phone: [facility] 02-10-2025 08:42-0400 SaO2% (BldA) [Mass fraction] 96 % Lori Jameel 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 Work Phone: [facility] 02-10-2025 08:12-0400 Body temperature 97.9 [degF] Lori Jameel [employer] 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 Work Phone: [facility] 02-10-2025 08:12-0400 Diastolic blood pressure 49 mm[Hg] Lori Jameel [employer] 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 Work Phone: [facility] 02-10-2025 08:12-0400 Heart rate 90 /min Lori Jameel 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 Work Phone: [facility] 02-10-2025 08:12-0400 Respiratory rate 16 /min Lori Jameel 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 Work Phone: [facility] 02-10-2025 08:12-0400 Systolic blood pressure 109 mm[Hg] Lori Dale [employer] 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 Work Phone: [facility] 02-09-2025 11:02-0400 Inhaled oxygen flow rate 2 L/min Lori Dale [employer] 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 Work Phone: [facility] 02-09-2025 08:00-0400 Inhaled oxygen concentration 21 % Lori Dale 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 Work Phone: [facility] 02-07-2025 09:51-0400 Body height 152.4 cm Lori Dale [employer] 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 Work Phone: [facility] 02-07-2025 09:51-0400 Body weight 70.78 kg Lori Dale [employer] 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 Work Phone: [facility] 02-06-2025 09:47-0400 Body mass index (BMI) [Ratio] 30.4 kg/m2 Lori Dale 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 Work Phone: [facility] 01-26-2025 12:28-0500 Body temperature 98 [degF] Lori Bonillako [employer] 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 Work Phone: [facility] 01-26-2025 12:28-0500 Diastolic blood pressure 50 mm[Hg] Lori Jameel [employer] 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 Work Phone: [facility] 01-26-2025 12:28-0500 Heart rate 94 /min Lori Bonillako 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 Work Phone: [facility] 01-26-2025 12:28-0500 Respiratory rate 21 /min Lori Bonillako 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 Work Phone: [facility] 01-26-2025 12:28-0500 SaO2% (BldA) [Mass fraction] 90 % Lori Bonillako 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 Work Phone: [facility] 01-26-2025 12:28-0500 Systolic blood pressure 104 mm[Hg] Lori Jameel [employer] 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 Work Phone: [facility] 01-26-2025 12:00-0500 Inhaled oxygen flow rate 2 L/min Lori Bonillako [employer] 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 Work Phone: [facility] 01-26-2025 02:28-0500 Body mass index (BMI) [Ratio] 32.7 kg/m2 Lori Jameel [employer] 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 Work Phone: [facility] 01-26-2025 02:28-0500 Body weight 75.6 kg Lori Jameel [employer] 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 Work Phone: [facility] 10-18-2024 08:50-0500 Body height 152.4 cm Lori Dale [employer] Work Phone: [facility] 10-18-2024 08:50-0500 Body mass index (BMI) [Ratio] 31.05 kg/m2 Lori Dale [employer] Work Phone: [facility] 10-18-2024 08:50-0500 Body temperature 97.59 [degF] Lori Dale [employer] Work Phone: [facility] 10-18-2024 08:50-0500 Body weight 72.12 kg Lori Dale [employer] Work Phone: [facility] 10-18-2024 08:50-0500 Diastolic blood pressure 57 mm[Hg] Lori Dale [employer] Work Phone: [facility] 10-18-2024 08:50-0500 Heart rate 86 /min Lori Dale [employer] Work Phone: [facility] 10-18-2024 08:50-0500 SaO2% (BldA) [Mass fraction] 95 % Lori Dlae [employer] Work Phone: [facility] 10-18-2024 08:50-0500 Systolic blood pressure 105 mm[Hg] Lori Dale [employer] Work Phone: [facility] 10-16-2024 08:44-0500 Body temperature 97.59 [degF] Lori Dale [employer] Work Phone: [facility] 10-16-2024 08:44-0500 Body weight 59.88 kg Lori Dale [employer] Work Phone: [facility] 10-16-2024 08:44-0500 Diastolic blood pressure 78 mm[Hg] Lori Dale [employer] Work Phone: [facility] 10-16-2024 08:44-0500 Heart rate 88 /min Lori Dale [employer] Work Phone: [facility] 10-16-2024 08:44-0500 SaO2% (BldA) [Mass fraction] 94 % Lori Dale [employer] Work Phone: [facility] 10-16-2024 08:44-0500 Systolic blood pressure 118 mm[Hg] Lori Dale [employer] Work Phone: [facility] 08-09-2019 11:35-0400 BMI (Body Mass Index) 33.2 kg/m2 [facility] Work Phone: 08-09-2019 11:35-0400 Body Temperature 98.1 [degF] [facility] Work Phone: 08-09-2019 11:35-0400 Body weight 77.11 kg Matthew Covarrubias [facility] Work Phone: 08-09-2019 11:35-0400 BP Diastolic 74 mm[Hg] Matthew [facility] Work Phone: 08-09-2019 11:35-0400 BP Systolic 116 mm[Hg] Matthew Covarrubias [facility] Work Phone: 08-09-2019 11:35-0400 BSA (Body Surface Area) 1.74 m2 [facility] Work Phone: 08-09-2019 11:35-0400 Height 152.4 cm Matthew [facility] Work Phone: 08-09-2019 11:35-0400 Pulse (Heart Rate) 68 /min [facility] Work Phone: Encounters Encounter Date Encounter Type Care Provider Facility Start: 07-21-[address] [facility] Facility:[facility] Start: 07-10-[address] [facility] Facility:[facility] Start: 06-27-2025 ambulatory KASEY Tanner acility:[facility] Start: 05-19-2025 Encounter for other preprocedural examination [facility] Start: 05-14-2025 End: 05-26-2025 Dr. Scott Mcdowell MD -Transitional Care Unit Start: 05-14-2025 End: 05-26-2025 Evaluation and management of inpatient Lori Jameel 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 Work Phone: -Transitional Care Unit Start: 05-14-2025 Non-patient / Non-visit Dr. Lazaro Harden [facility] Work Phone: Start: 05-14-[address] dong [facility] Work Phone: Start: 05-13-2025 Non-patient / Non-visit Dr. Lazaro Harden [facility] Work Phone: Start: 05-13-[address] dong [facility] Work Phone: Start: 05-12-2025 Non-patient / Non-visit [facility]. [facility] Work Phone: Start: 05-12-[address] dong [facility] Work Phone: Start: 05-11-2025 Non-patient / Non-visit Dr. Lazaro Harden [facility] Work Phone: Start: 05-11-[address] dong [facility] Work Phone: Start: 05-10-2025 End: 05-14-2025 Evaluation and management of inpatient Dr. Bria Gan MD -Medical Surgical 3 Work Phone: Start: 05-10-2025 End: 05-14-2025 Dr. Bria Gan MD -Medical Surgical 3 Work Phone: Start: 05-10-2025 End: 05-14-2025 Evaluation and management of inpatient Lori Jameel 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 Work Phone: [facility] Work Phone: Start: 05-10-2025 End: 05-14-2025 Dr. Bria Gan MD -Medical Surgical 3 Work Phone: Start: 05-10-2025 ambulatory Bria Gan [facility] Start: 05-03-[address] [facility] Facility:[facility] Start: 05-01-2025 Encounter for other preprocedural examination Bria Elvia [facility] Start: 04-27-2025 End: 04-27-2025 ambulatory Lori Jameel 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 Work Phone: [facility] Work Phone: Start: 04-27-2025 End: 04-27-[address] Bria Gan MD -Laboratory Work Phone: Start: 04-27-2025 End: 04-27-2025 Dr. Bria Gan MD -Laboratory Work Phone: Start: 04-27-2025 End: 04-27-[address] [facility] Facility:[facility] Start: 04-09-[address] [facility] Facility:[facility] Start: 04-02-2025 End: 04-02-2025 Patient encounter procedure Cindy Guerrier [employer]ION[employer] 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 -[facility] Work Phone: Start: 04-02-2025 End: 04-02-2025 Cindy Guerrier PROMOTIONAL 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 -[facility] Work Phone: Start: 04-02-2025 End: 04-02-2025 ambulatory Lori Jameel 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 Work Phone: [facility] Work Phone: Start: 04-02-2025 End: 04-02-2025 ambulatory Scott Chi Jeremias Facility:[facility] Start: 02-27-2025 ambulatory Scott [facility] Facility:[facility] Start: 02-27-2025 Non-patient / Non-visit Dr. Raymundo ramirez MD -[facility] Start: 02-27-2025 Dr. Raymundo Petty MD -[facility] Start: 02-27-2025 End: 02-27-2025 ambulatory Lori Dale 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 Work Phone: [facility] Work Phone: Start: 02-27-2025 End: 02-27-2025 Patient encounter procedure Cindy Guerrier NP-C -Pulmonary Services/Neurology Work Phone: Start: 02-27-2025 End: 02-27-2025 Cindy Guerrier NP-C -Pulmonary Services/Neurology Work Phone: Start: 02-27-2025 End: 02-27-2025 ambulatory Scott Mcdowell Facility:[facility] Start: 02-12-2025 End: 02-12-2025 ambulatory Lori Dale 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 Work Phone: [facility] Work Phone: Start: 02-12-2025 End: 02-12-[address] Scott Mcdowell MD -Laboratory, Phy Office 3rd Flr Start: 02-12-2025 End: 02-12-2025 Dr. Scott Mcdowell MD -Laboratory Phy Office 3rd Flr Start: 02-12-2025 End: 02-12-2025 Patient encounter procedure Cindy Guerrier NP-C -[facility] Work Phone: Start: 02-12-2025 End: 02-12-2025 Cindy Guerrier NP-C -[facility] Work Phone: Start: 02-12-2025 End: 02-12-2025 ambulatory Lori Dale Facility:[facility] Start: 02-12-2025 End: 02-12-2025 ambulatory Scott Mcdoewll Facility:[facility] Start: 02-08-2025 End: 02-08-2025 ambulatory Lori Dale 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 Work Phone: [facility] Work Phone: Start: 02-08-2025 End: 02-08-[address] Scott Mcdowell MD -Cat [facility], [facility] Work Phone: Start: 02-08-2025 End: 02-08-2025 Dr. Scott Mcdowell MD -Cat Scan [facility] Work Phone: Start: 02-07-2025 ambulatory Scott Cm Segoviaok Facility:[facility] Start: 02-07-2025 Non-patient / Non-visit Dr. Raymundo ramirez MD -[facility] Start: 02-07-2025 Dr. Raymundo Petty MD -[facility] Start: 02-07-2025 End: 02-08-2025 ambulatory Lori Dale 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 Work Phone: [facility] Work Phone: Start: 02-07-2025 End: 02-07-[address] Scott Mcdowell MD -Cardiovascular Services Work Phone: Start: 02-07-2025 End: 02-07-2025 Dr. Scott Mcdowell MD -Cardiovascular Services Work Phone: Start: 02-07-2025 End: 02-07-2025 ambulatory Lori Dale Facility:[facility] Start: 01-29-2025 ambulatory Bria Elvia Facility: [facility] Start: 01-26-2025 End: 02-10-2025 Dr. Scott Mcdowell MD -Transitional Care Unit Start: 01-26-2025 End: 02-10-2025 Evaluation and management of inpatient Dr. Scott Mcdowell MD -Transitional Care Unit Start: 01-26-2025 Non-patient / Non-visit Dr. Lori Matthews DO -[facility] Work Phone: Start: 01-26-2025 Dr. Lori Platt [facility] Work Phone: Start: 01-25-2025 Non-patient / Non-visit Dr. Lori Matthews DO -[facility] Work Phone: Start: 01-25-2025 Dr. Lori Matthews DO -[facility] Work Phone: Start: 01-25-2025 Non-patient / Non-visit [facility]. Cuba sethi [facility] Start: 01-25-2025 Dr. Cuba Allred DO -[facility] Start: 01-24-2025 Non-patient / Non-visit Dr. Raymundo ramirez MD -[facility] Start: 01-24-2025 Dr. Raymundo Petty MD -[facility] Start: 01-24-2025 ambulatory [place] [facility] cility:[facility] Start: 01-24-2025 Non-patient / Non-visit Dr. Cuba sethi DO -[facility] Start: 01-24-2025 Dr. Cuba Allred DO [facility] Start: 01-23-2025 Non-patient / Non-visit Dr. Raymundo nick DO [facility] Work Phone: Start: 01-23-2025 ambulatory Raymundo Bhardwaj Facility:[facility] Start: 01-23-2025 End: 01-26-2025 Evaluation and management of inpatient Dr. Lori Matthews DO -Intensive Care Unit Work Phone: Start: 01-23-2025 End: 01-26-2025 Dr. Lori Matthews DO -Intensive Care Unit Work Phone: Start: 01-17-2025 End: 01-17-[address] BRIA GAN MD Facility:[facility] Start: 01-17-2025 End: 01-17-[address] BRIA GAN MD [facility] Start: 11-20-2024 End: 02-21-2025 ambulatory VICK CROWLEY PA-C Facility:[facility] Start: 11-20-2024 End: 01-19-2025 Physical therapy management VICK CROWLEY PA-C [facility] Start: 10-23-2024 End: 10-23-[address] BRIA [facility]AN [facility] [facility] Start: 10-23-2024 End: 10-23-[address] BRIA GAN MD [facility] Start: 10-18-2024 End: 10-18-2024 Office outpatient visit 15 minutes Lori Dale [employer] Work Phone: [facility] Comment on above: Preop examination (P rimary Dx); Primary osteoarthritis of left knee Start: 10-18-2024 End: 10-18-2024 Preprocedural examination done Lori Dale [employer] Work Phone: [facility] Work Phone: Start: 10-18-2024 End: 10-18-2024 Encounter for other preprocedural examination [facility] Start: 10-18-2024 End: 10-18-2024 ambulatory [facility] Start: 10-16-2024 End: 10-16-2024 Patient encounter procedure Lori Dale [employer] Work Phone: [facility] Comment on above: Medicare annual well ness visit, subsequent (Primary Dx); Screening for cardiovascular condition; Colon cancer screening; Annual physical exam Start: 10-16-2024 End: 10-16-2024 ambulatory [facility] Start: 10-16-2024 End: 10-16-2024 Encounter for general adult medical examination without abnormal findings [facility] Procedures Date Procedure Procedure Detail Performing Clinician Start: 05-22-2025 Blood count smear rscp w/mnl difrntl wbc count Lori Dale 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 Work Phone: Start: 05-22-2025 Estimated creatinine clearance Lori Dale 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 Work Phone: Start: 05-22-2025 Mean corpuscular hem oglobin concentration determination Lori Dale 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 Work Phone: Start: 05-22-2025 Nucleated red blood cell count procedure Lori Dale 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 Work Phone: Start: 05-22-2025 Platelet mean volume determination Lori Dale 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 Work Phone: Start: 05-20-2025 Plain X-ray abdomen Ayala Dale 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 Work Phone: Start: 05-14-2025 Mean corpuscular hem oglobin concentration determination Lori Dale 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 Work Phone: Start: 05-14-2025 Platelet mean volume determination Lori Dale 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 Work Phone: Start: 05-11-2025 Estimated creatinine clearance Lori Dale 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 Work Phone: Start: 05-10-2025 X-ray of knee, one o r two views Lori Dale 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 Work Phone: Start: 05-10-2025 Anaerobic microbial culture Lori Dale 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 Work Phone: Start: 05-10-2025 Gram stain microscopy K majo Dale 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 Work Phone: Start: 05-10-2025 End: 05-10-2025 Microbial culture, routine Lori Dale 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 Work Phone: Start: 05-10-2025 Revision of left tot al knee arthroplasty Lori Dale 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 Work Phone: Start: 04-27-2025 Methicillin resistan t Staphylococcus aureus screening test Lori Dale 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 Work Phone: Start: 04-16-2025 Blood count smear mc rscp w/mnl difrntl wbc count Lori Dale 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 Work Phone: Start: 04-16-2025 Calculation of inter national normalized ratio Lori Dale 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 Work Phone: Start: 04-16-2025 Nucleated red blood cell count procedure Lori Dale 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 Work Phone: Start: 04-02-2025 End: 04-02-2025 Plain x-ray of hand Lori Dale 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 Work Phone: Start: 04-02-2025 Plain x-ray of wrist Lissett Dale [employer] 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 Work Phone: Start: 04-02-2025 QUITA measurement Lori Dale 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 Work Phone: Comment on above: Performed at: [place] [id number] Director: Eros Rosales PhD, Phone: [phone] Start: 04-02-2025 Antibody to lupus La protein measurement Lori Dale 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 Work Phone: Comment on above: Previous reported re sult: TNP AIEdited by: INFRANDALL on 04/03/25:1108 AMENDED REPORT 04/03/25 1108 Anti-SS-B previously reported as: Test not performed Start: 04-02-2025 Antibody to SS-A measurement Lori Dale 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 Work Phone: Comment on above: Previous reported re sult: TNP AIEdited by: INFCE on 04/03/25:1108 AMENDED REPORT 04/03/25 1108 Anti-SS-A previously reported as: Test not performed Start: 04-02-2025 Blood count smear mc rscp w/mnl difrntl wbc count Lori Dale 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 Work Phone: Start: 04-02-2025 C>3< complement assay K athaga Dale 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 Work Phone: Start: 04-02-2025 Mean corpuscular hem oglobin concentration determination Lori Dale 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 Work Phone: Start: 04-02-2025 Nucleated red blood cell count procedure Lori Dale 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 Work Phone: Start: 04-02-2025 Platelet mean volume determination Lori Dale 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 Work Phone: Start: 04-02-2025 Procedure Lori adkins 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 Work Phone: Comment on above: Test Ordered: [id number] Anti-Centromere Ab by IFA(RDL)Anti- Centromere Ab by IFA(RDL) <1:40 ESECF Reference Range: <1:40Performed at: [facility] - [address] [place] [address] [id number] Director: Latrell Damon MD, Phone: [phone] at: [employer] [id number] Director: Eros Rosales PhD, Phone: [phone] Test Ordered: [id number] Anti-RNA Polymerase III (RDL)Anti-RNA Polymerase III (RDL) <20 Units ESEC Reference Range: <20 Negative: <20 Weak Positive: 20 - 39 Moderate Positive: 40 - 80 Strong Positive: >80Performed at: [facility] - [employer] [id number] [place] [address] [id number] Director: Latrell Damon MD, Phone: [phone] at: [employer] [id number] Director: Eros Rosales PhD, Phone: [phone] Start: 04-02-2025 Serum IgM anticardio lipin measurement Lori Dale 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 Work Phone: Comment on above: Negative: <13 [...] HCV Quant by PCR testing - HCVPCR #[id number] Non Reactive: < 0.8 Equivocal: >/= 0.8 [...] rscp w/mnl difrntl wbc count Lori Dale 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 Work Phone: Start: 02-09-2025 Estimated creatinine clearance Lori Dale 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 Work Phone: Start: 02-09-2025 Mean corpuscular hem oglobin concentration determination Lori Dale 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 Work Phone: Start: 02-09-2025 Nucleated red blood cell count procedure Lori Dale 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 Work Phone: Start: 02-09-2025 Platelet mean volume determination Lori Dale 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 Work Phone: Start: 02-08-2025 CT angiography of ch est with contrast Lori Dale 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 Work Phone: Start: 01-26-2025 Blood count smear mc rscp w/mnl difrntl wbc count Lori Dale 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 Work Phone: Start: 01-26-2025 Estimated creatinine clearance Lori Dale 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 Work Phone: Start: 01-26-2025 Mean corpuscular hem oglobin concentration determination Lori Dale 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 Work Phone: Start: 01-26-2025 Nucleated red blood cell count procedure Lori Dale 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 Work Phone: Start: 01-26-2025 Platelet mean volume determination Lori Dale 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 Work Phone: Start: 01-25-2025 Serum inorganic phos phate measurement Lori Dale 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 Work Phone: Start: 01-24-2025 QUITA measurement Lori Dale 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 Work Phone: Comment on above: Performed at: [address] [id number] Director: Eros Rosales PhD, Phone: [phone] Start: 01-24-2025 Antibody measurement Lissett Dale [employer] 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 Work Phone: Comment on above: The atypical pANCA p attern has been observed in asignificant percentage of patients with ulcerative colitis,primary sclerosing cholangitis and autoimmune hepatitis. Start: 01-24-2025 Antibody to centrome re measurement Lori Dale 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 Work Phone: Comment on above: Test not performed Start: 01-24-2025 Antibody to extracta ble nuclear antigen measurement Lori Dale 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 Work Phone: Comment on above: Test not performed Start: 01-24-2025 Antibody to ROSE-1 measurement Lori Dale 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 Work Phone: Comment on above: Test not performed Start: 01-24-2025 Antibody to lupus La protein measurement Lori Dale 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 Work Phone: Comment on above: Test not performed Start: 01-24-2025 Antibody to SS-A measurement Lori Dale 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 Work Phone: Comment on above: Test not performed Start: 01-24-2025 Autoantibody measurement Lori Dale 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 Work Phone: Comment on above: Test not performed Start: 01-24-2025 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 Lori Dale 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 Work Phone: Comment on above: Test not performed Start: 01-23-2025 Calculation of inter national normalized ratio Lori Dale 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 Work Phone: Start: 01-23-2025 Urine microscopy: red cells Lori Dale 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 Work Phone: Start: 01-23-2025 Urnls dip stick/tabl et reagent auto microscopy Lori Dale 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 Work Phone: Start: 01-23-2025 CT angiography of ch est with contrast Lori Dale 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 Work Phone: Start: 01-23-2025 Assay of lactate Ayalamargie raudel Dale 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 Work Phone: Start: 01-23-2025 D-dimer assay, quantitative Lori Dale [employer] 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 Work Phone: Comment on above: D-Dimer ELEVATED (>0 .49): Additional studies and clinicalassessments are indicated to conclude diagnosis of:Deep Vein Thrombosis (DVT) or Pulmonary Embolism (PE)CRITICAL VALUE CALLED TO [id number]/25/25 1628 Pebbles Trotter.RESULTS READ BACK BY SAME. Start: 01-23-2025 X-ray of chest, PA a nd lateral views Lori Dale 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 Work Phone: Start: 01-23-2025 Blood culture Lori wyliejed 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 Work Phone: Start: 01-23-2025 SARS-CoV-2, Influenz a & RSV (PCR) Lori Dale 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 Work Phone: Start: 01-23-2025 Urine culture Lori callejasdejan 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 Work Phone: Start: 01-23-2025 Lori Germán adkins 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 Work Phone: Start: 10-18-2024 Lipid 1996 panel - S hailey or Plasma Lorinicanor Bonillako [employer] Work Phone: Start: 08-13-2019 Follow-up visit Start: 08-10-2019 Lipid 1996 panel - S hailey or Plasma Lori Jameel [employer] Work Phone: Appendectomy Matthew Smiley is Ligation of fallopian tube Shakira Covarrubias Plan of Treatment Date Care Activity Detail Author Start: 10-18-2029 Lipid panel Lipid Panel [facility] Start: 2028 RSV High Risk: (Elde rly (60+) or Population) (1 - 1-dose 75+ series) RSV High Risk: (Elderly (60+) or Population) (1 - 1-dose 75+ series) [facility] Start: 10-19-2025 End: 11-21-2025 Patient encounter procedure 10/19/2025 8:40 AM EST Office Visit [facility] [address] [facility] [address] [place] [id number] Lori Dale, [employer] [address] [facility] [place] [address] [facility] Start: 10-17-2025 Yearly Adult Physical Yearly Adult P [facility] Start: 05-26-2025 Patient discharge [facility] Start: 05-25-2025 Development of care plan [facility] Start: 05-23-2025 Referral to service [facility] Start: 05-22-2025 [facility] Start: 05-16-2025 Patient referral to dietitian [facility] Start: 05-15-2025 Development of care plan [facility] Start: 05-15-2025 Developing a treatme nt plan [facility] Start: 05-14-2025 Oxygen therapy [facility] Start: 05-14-2025 Recommendation to continue with treatment [facility] Start: 05-14-2025 Following clinical pathway protocol [facility] Start: 05-14-2025 Wound care [facility] Start: 05-14-2025 Admission procedure [facility] Start: 05-14-2025 Introduction of urin katerin catheter [facility] Start: 05-14-2025 Measuring intake and output [facility] Start: 05-14-2025 Patient referral to dietitian [facility] Start: 05-14-2025 Referral to occupati onal therapist [facility] Start: 05-14-2025 Referral to service [facility] Start: 05-14-2025 Vital signs measurements [facility] Start: 05-14-2025 End: 05-14-2025 [facility] Start: 05-14-2025 Application of device W [facility] Start: 05-14-2025 Patient discharge [facility] Start: 05-11-2025 Consultation [facility] Start: 05-11-2025 Oxygen therapy [facility] Start: 05-10-2025 Application of intermittent pneumatic compression device [facility] Start: 05-10-2025 Following clinical pathway protocol [facility] Start: 05-10-2025 Provision of overbed trapeze [facility] Start: 05-10-2025 Recommendation to continue with treatment [facility] Start: 05-10-2025 Ambulation therapy management [facility] Start: 05-10-2025 Application of device W [facility] Start: 05-10-2025 Application of elast ic bandage [facility] Start: 05-10-2025 Assessment of risk o f venous thromboembolism [facility] Start: 05-10-2025 Catheterization of vein [facility] Start: 05-10-2025 Exercises [facility] Start: 05-10-2025 Introduction of urin katerin catheter [facility] Start: 05-10-2025 Measuring intake and output [facility] Start: 05-10-2025 Neurovascular assessment [facility] Start: 05-10-2025 Patient education [facility] Start: 05-10-2025 Procedure discontinued [facility] Start: 05-10-2025 Provision of activit y privileges [facility] Start: 05-10-2025 Referral to occupati onal therapist [facility] Start: 05-10-2025 Referral to service [facility] Start: 05-10-2025 Vital signs measurements [facility] Start: 05-10-2025 Wound care [facility] Start: 05-10-2025 End: 05-10-2025 [facility] Start: 05-10-2025 Admission procedure [facility] Start: 05-10-2025 End: 05-10-2025 Source specific culture [facility] Start: 05-10-2025 End: 05-10-2025 Acid fast bacilli culture [facility] Start: 05-10-2025 End: 05-10-2025 Mycology culture [facility] Start: 05-10-2025 Acid Fast Bacilli Culture Acid Fast Bacilli Culture [facility] Start: 05-10-2025 Acid Fast Bacilli Smear Acid Fast Ba cilli Smear [facility] Start: 05-10-2025 Anaerobic microbial culture [facility] Start: 05-10-2025 Fungal Culture Fungal Culture [facility] Start: 05-10-2025 Fungal Smear Fungal Smear [facility] Start: 05-10-2025 [facility] Start: 04-02-2025 Procedure [facility] Start: 02-12-2025 Patient referral [facility] Work Phone: Start: 02-10-2025 Patient discharge [facility] Start: 02-08-2025 [facility] Start: 02-07-2025 Referral to service [facility] Start: 01-31-2025 Application of ice collar, cap or bag [facility] Start: 01-27-2025 Developing a treatme nt plan [facility] Start: 01-26-2025 Admission procedure [facility] Start: 01-26-2025 Introduction of urin katerin catheter [facility] Start: 01-26-2025 Measuring intake and output [facility] Start: 01-26-2025 Patient referral to dietitian [facility] Start: 01-26-2025 Referral to occupati onal therapist [facility] Start: 01-26-2025 Referral to service [facility] Start: 01-26-2025 Vital signs measurements [facility] Start: 01-26-2025 End: 01-26-2025 [facility] Start: 01-26-2025 Following clinical pathway protocol [facility] Start: 01-26-2025 Patient discharge [facility] Start: 01-25-2025 Oxygen therapy [facility] Start: 01-24-2025 Care planning and pr oblem solving actions [facility] Start: 01-23-2025 Following clinical pathway protocol [facility] Start: 01-23-2025 Assessment of risk o f venous thromboembolism [facility] Start: 01-23-2025 Continuous pulse oximetry [facility] Start: 01-23-2025 Elevation of affecte d extremity [facility] Start: 01-23-2025 Insertion of cathete r into peripheral vein [facility] Start: 01-23-2025 Measuring intake and output [facility] Start: 01-23-2025 Providing care accor ding to standard [facility] Start: 01-23-2025 Referral to occupati onal therapist [facility] Start: 01-23-2025 Referral to service [facility] Start: 01-23-2025 Referral to vascular surgeon [facility] Start: 01-23-2025 Self-administration of medication [facility] Start: 01-23-2025 Vital signs measurements [facility] Start: 01-23-2025 [facility] Start: 01-23-2025 Admission procedure [facility] Start: 01-23-2025 [facility] Start: 10-18-2024 End: 10-18-2024 Patient encounter procedure 10/18/2024 8:40 AM EST Office Visit [facility] [address] [facility] [address] [place] [id number] Lori Dale, [employer] [address] [facility] [place] [address] [facility] Start: 10-16-2024 End: 10-16-2025 CBC W Auto Differential panel - Blood CBC and Auto Differential Lab Routine Screening for cardiovascular condition Expected: 10/16/2024 (Approximate), Expires: 10/16/2025 [facility] Work Phone: Comment on above: Expected: 10/16/2024 (Approximate), Expires: 10/16/2025 Start: 10-16-2024 End: 10-16-2025 Cologuard colon cancer screening Cologuard colon cancer screening Lab Routine Colon cancer screening Expected: 10/16/2024 (Approximate), Expires: 10/16/2025 [facility] Work Phone: Comment on above: Expected: 10/16/2024 (Approximate), Expires: 10/16/2025 Start: 10-16-2024 End: 10-16-2025 Comprehensive metabolic 2000 panel - Serum or Plasma Comprehensive metabolic panel Lab Routine Screening for cardiovascular condition Expected: 10/16/2024 (Approximate), Expires: 10/16/2025 [facility] Work Phone: Comment on above: Expected: 10/16/2024 (Approximate), Expires: 10/16/2025 Start: 10-16-2024 End: 10-16-2025 Lipid 1996 panel - Serum or Plasma Lipid Panel Lab Routine Screening for cardiovascular condition Expected: 10/16/2024 (Approximate), Expires: 10/16/2025 [facility] Work Phone: Comment on above: Expected: 10/16/2024 (Approximate), Expires: 10/16/2025 Start: 10-16-2024 End: 10-16-2025 Tsh With Reflex To Free T4 If Abnormal Tsh With Reflex To Free T4 If Abnormal Lab Routine Screening for cardiovascular condition Expected: 10/16/2024 (Approximate), Expires: 10/16/2025 [facility] Work Phone: Comment on above: Expected: 10/16/2024 (Approximate), Expires: 10/16/2025 Start: 08-10-2024 Lipid panel Lipid Panel [facility] Start: 07-30-2024 COVID-19 Vaccine ( season) COVID-19 Vaccine ( season) [facility] Start: 07-30-2024 Influenza vaccination Influenza Vacc ine (#1) [facility] Start: 2018 Pneumococcal Vaccine : 65+ Years (1 of 1 - PCV) Pneumococcal Vaccine: 65+ Years (1 of 1 - PCV) [facility] Start: 2003 Zoster Vaccines (1 of 2) Zoster Vacc sundar (1 of 2) [facility] Start: 1993 Screening for malign ant neoplasm of breast Mammogram [facility] Start: 1975 DTaP/Tdap/Td Vaccine s (1 - Tdap) DTaP/Tdap/Td Vaccines (1 - Tdap) [facility] Start: 1971 Hepatitis C screening Hepatitis C Sc reening [facility] Start: 1953 Screening for malign ant neoplasm of colon [facility] Start: 1953 Screening for osteoporosis Bone Density Scan [facility] Start: 1955 Yearly Adult Physical Yearly Adult P hysical [facility] CBC W Auto Different ial panel - Blood [facility] Fungus identified in Unspecified specimen by Culture [facility] Fungus identified in Unspecified specimen by Fungus stain [facility] Mycobacterium sp identified in Unspecified specimen by Organism specific culture [facility] Patient referral [facility] Work Phone: [facility] Payers Date Payer Category Payer Self-pay 2025 Medicare [id number] 2023 Managed Care (Private) [facility] [id number] 2023 Private Health Insurance [id number] 1955 Unknown [id number] .1.445870.3.579. 2.124 1953 Unknown [id number] .1.450039.3.579. 2.124 1953 Unknown [id number] 01.14.840.1.604504.3.579. 2.1244 1953 Unknown [id number] 01.14.840.1.410709.3.579. 2.62 1953 Unknown [id number] 2.0.1.858135.3.579. 2.62 1953 Unknown [id number] 2.16.840.1.109484.3.579. 2.627 1953 Unknown [id number] 2.16.840.1.134492.3.579. 2.627 Unknown [id number] 2.16.840.1.227773.3.579. 2.462 Unknown [id number] 2.16.840.1.707298.3.579. 2.462 Unknown [id number] 2.16.840.1.829993.3.579. 2.462 Unknown [id number] 2.16.840.1.234384.3.579. 2.462 Unknown [id number] 2..840.1.648297.3.579. 2.462 Unknown [id number] 2.840.1.696713.3.579. 2.462 Unknown [id number] 2.840.1.010620.3.579. 2.462 Unknown [id number] 2.840.1.156164.3.579. 2.462 Unknown [id number] 2.840.1.450377.3.579. 2.462 Unknown [id number] 2..840.1.291173.3.579. 2.462 Unknown [id number] 2.840.1.907132.3.579. 2.462 Unknown [id number] 2..840.1.618548.3.579. 2.462 Unknown [id number] 2.16.840.1.977611.3.579. 2.462 Unknown [id number] 2.16.840.1.370843.3.579. 2.462 Unknown [id number] 2.16840.1.760770.3.579. 2.462 Unknown [id number] 2.16.840.1.215766.3.579. 2.462 Unknown [id number] 2.16.840.1.010857.3.579. 2.462 Unknown [id number] 2.16.840.1.272384.3.579. 2.462 Unknown [id number] 2.16.840.1.919247.3.579. 2.462 Unknown [id number] 2.16.840.1.007364.3.579. 2.462 Unknown [id number] 2.16.840.1.109741.3.579. 2.462 Unknown [id number] 2.16.840.1.541532.3.579. 2.462 Unknown [id number] 2.16.840.1.223132.3.579. 2.462 Unknown [id number] 2.16.840.1.584406.3.579. 2.462 Unknown [id number] 2.16.840.1.607664.3.579. 2.462 Unknown [id number] 2.16.840.1.147351.3.579. 2.462 Unknown [id number] 2.16.840.1.748259.3.579. 2.462 Unknown [id number] 2.16.840.1.354677.3.579. 2.462 Unknown [id number] 2.16.840.1.705214.3.579. 2.462 Unknown [id number] 2.16.840.1.291785.3.579. 2.462 Unknown [id number] 2.16.840.1.600326.3.579. 2.462 Social History Date Type Detail Facility Assertion Unknown if ever smoked [facility] Work Phone: Start: 10-16-2024 End: 05-14-2025 Tobacco smoking status NHIS Never smoked tobacco [facility] Work Phone: Start: 10-16-2024 Tobacco use and exposure Smokeless tobacco non-user [facility] Work Phone: Start: 10-16-2024 End: 10-18-2024 Alcoholic beverage intake Ex-drinker (finding) [facility] Work Phone: Start: 10-16-2024 Alcohol Comment rare [facility] Work Phone: Start: 1955 [facility] Start: 10-18-2024 Gender identity Not on file [facility] Work Phone: Start: 10-06-2024 End: 10-18-2024 Exposure to SARS-CoV-2 (event) Not sure [facility] Start: 10-18-2024 History of Social function [facility] Work Phone: Start: 02-10-2025 End: 03-03-2025 Sex Female (finding) [facility] Start: 1955 Sex Assigned At Female W [facility] NEGATED: Highlighted row [facility] Medical Equipment Procedure Code Equipment Code Equipment Origin al Text Equipment Identifier Dates ()[id number] [id number] FDA Start: 05-10-2025 ([id number]) ()[id number](1 7)[id number] FDA Start: 05-10-2025 ([id number]) ()[id number] [id number] [id number] BD FDA Start: 05-10-2025 ()[id number] 7)[id number] FDA Start: 05-10-2025 ([id number]) ()[id number] 7)[id number] FDA Start: 05-10-2025 Goals Date Patient Goal Desired Activity /State Functional Status Date Assessment Result Facility 05-26-2025 Functional status Ambulates;Up a d rai;Chair [facility] Work Phone: 05-14-2025 Functional status Ambulates;Chair [facility] Work Phone: 02-10-2025 Functional status Ambulates;Up ad rai [facility] Work Phone: 01-26-2025 Functional status Bedrest [facility] Work Phone: NEGATED: Highlighted row Functional performance Functional status health issues are not documented Disease [facility] Work Phone: Mental Status Date Assessment Result Facility 05-26-2025 Cognitive function Voice/Name [facility] Work Phone: 05-14-2025 Cognitive function Voice/Name [facility] Work Phone: 02-10-2025 Cognitive function Voice/Name [facility] Work Phone: 02-06-2025 Cognitive function Appropriate;C ooperati ve [facility] Work Phone: 01-26-2025 Cognitive function Voice/Name [facility] Work Phone: NEGATED: Highlighted row Cognitive function [Interpretation] Cognitive status health issues are not documented Disease [facility] Work Phone: Clinical Notes 10-16-2024 to 05-26-2025 Note Date & Type Note Facility 05-26-2025 Hospital Discharg e instructions Additional Instructions Discharge home with 05/26/2025, [facility] PT/OT/SN. [facility] Work Phone: 05-23-2025 Discharge summary Note Date/Time May 23, 2025 9:04pm [facility] Medical Records Department [address] [place] [address] Discharge Summary 05/23/252054 MR#: [id number] Acct: [id number] Name: EDSON COOK Rep #:[id number] : 1955 70 From: Scott Mcdowell MD PCP: Dr. Scott Mcdowell MD Status:ADM I N Location: [facility] Providers Date of Admission: 05/14/25 Primary Care [...] negative for DVT. Discharge home with 05/26/2025, [facility] PT/OT/SN. Physical Exam Const alert General Appearance: [...] community. Additional Instructions: Discharge home with 05/26/2025, [facility] PT/OT/SN. Please Follow Up With: Kasey Nunez [...] Instructions / Restrictions: Discharge home with 05/26/2025, [facility] PT/OT/SN. Discharge Orders/Prescriptions Prescriptions: New famotidine 20 [...] applicable): CC: Dr. Scott Mcdowell MD~ Signed [facility] Work Phone: 1(789) 380-343906-25-2025 [facility]06-22-2025 Radiology Diagnostic study [facility]06-17-2025 Progress note Author Anum Cody [facility] Note Date/Time May 15, 2025 5:25 pm [facility] Medical Records Department [address] [place] [address] Progress Note - Pharmacy 05/15/25 1538 MR#: [id number] Acct: [id number] Name: EDSON COOK Rep #:[id number] : 1955 70 From: Anum Cody PCP: Dr. Scott Mcdowell MD Status:ADM I N Location: TCU [place] [address] Documented by User: Anum Cody 05/15/25 15:53 [...] by Scott Mcdowell MD> CC: ~ Signed [facility] Work Phone: 1(716) 816-103106-16-2025 History and physical note Author Scott Jeremias [facility] Note Date/Time May 14, 2025 7:20 pm [facility] Medical Records Department [address] [place] [address] History & Physical Exam 05/14/25 1906 MR#: [id number] Acct: [id number] Name: EDSON COOK Rep #:[id number] : 1955 70 From: Scott Mcdowell MD PCP: Dr. Scott Mcdowell MD Status:ADM I N Location: TCU [facility] HPI - General General Date of Admission: 05/14/25 Date of Service: 05/14/25 Chief Complaint: Here for rehabilitation. HPI Narrative EDSON COOK, is a 70 Female who presents with followin05/10/2025 Admit [facility]. 05/10/2025 Dr. Gan performed revision left [...] strengthening, prior to discharge home with . [facility] Medical History Wears contact lenses Post-menopausal [...] applicable): CC: Dr. Scott Mcdowell MD~ Signed [facility] Work Phone: 1(729) 562-181206-16-2025 [facility]06-16-2025 [facility]06-16-2025 Progress note Author Kasey Nunez [facility] Note Date/Time May 14, 2025 12:5 1pm [facility] Medical Records Department [address] [place] [address] Progress Note - Orthopedic 05/14/25 1237 MR#: [id number] Acct: [id number] Name: EDSON COOK Rep #:[id number] : 1955 70 From: Kasey ROSARIO PCP: Dr. Scott Mcdowell MD Status:ADM I N Location: [place]3 RG634-0 Subjective Subjective Patient is comfortable in bedside chair upon examination. Patient is much more cheery than she was when I previously saw her on Wednesday. Patient states that she has had a bowel movement today. Patient states that she has worked with physical therapy and things have went well. Patient states she has been weightbearing with her walker. Patient has been accepted to [facility] TCU. Patient states that she feels she [...] this time patient has been accepted to [facility] transitional care unit. Patient states that she [...] with any questions, concerns, new problems. 05/14/25 1950 <Electronically signed by Kasey ROSARIO> Cosigner Signature (if applicable): CC: ~ Signed [facility] Work Phone: 1(952) 155-598306-16-[address] Harden [facility] Note Date/Time May 14, 2025 11:4 4am [facility] Medical Records Department [address] [place] [address] [facility] Care MR#: [id number] Acct: [id number] Name: EDSON COOK Rep #:[id number] : 1955 70 From: Lane Harden DO PCP: Dr. Scott Mcdowell MD Status:ADM I N Certification of patient admission REQUIRED AT TIME OF ADMISSION. 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 Lane Harden DO; Dr. Scott Mcdowell MD ~ [facility] Work Phone: 1(744) 831-660206-15-2025 History and physical note Author Kasey Nunez [facility] Note Date/Time May 13, 2025 9:28 pm [facility] Medical Records Department [address] [place] [address] History & Physical Exam 05/13/252125 MR#: [id number] Acct: [id number] Name: EDSON COOK Rep #:[id number] : 1955 70 From: Kasey ROSARIO PCP: Dr. Scott Mcdowell MD Status:ADM I N Location: [facility] JE679-3 History and Physical History and Physical Patient [...] discussions with her primary care physician and graphics artist to discuss proceeding with surgical intervention as [...] hypertension Accidents: Fracture - (1962) Left Wrist Garrard Surgical Hx: Appendectomy - (1966) Garrard Tubal Ligation - (1976) Garrard Knee Replacement LT - (11/16/2024) ROBOTIC ASSISTED DR. GAN AT [facility] Anesthesia Complications: None Assistive Devices: Glasses, Oxygen - 2 liters daily, not at rest or at night , Walker Reviewed, no changes. SOCIAL HISTORY: Social History: Marital: .Occupation: [employer]Work Status: Currently Working - from home.Hand Dominance: [...] ABRAHAM Peace; Dr. Scott Mcdowell MD~ Signed [facility] Work Phone: 1(970) 394-949106-15-2025 [facility]06-15-[address]arden [facility] Note Date/Time May 13, 2025 11:3 2am [facility] Medical Records Department [address] [place] [address] Progress Note - Hospitalist 05/13/25 1131 MR#: [id number] Acct: [id number] Name: EDSON COOK Rep #:[id number] : 1955 70 From: Lane Harden DO PCP: Dr. Scott Mcdowell MD Status:ADM I N Location: [place] KA772-6 Reason for Visit Reason for Visit: Diagnoses [...] 35 minutes Charges/Coding Visit Charges Inpatient E&M: 35902 Subs Hosp L2 05/13/25 1132 <Electronically signed by Lane Harden DO> Cosigner Signature (if applicable): CC: ~ Signed [facility] Work Phone: 1(313) 795-397906-15-2025 Progress note Author Andrea Hawkins [facility] Note Date/Time May 13, 2025 10:0 2am [facility] Medical Records Department [address] [place] [address] Progress Note - Orthopedic 05/13/25 0949 MR#: [id number] Acct: [id number] Name: EDSON COOK Rep #:[id number] : 1955 70 From: Andrea ROSARIO PA-C PCP: Dr. Scott Mcdowell MD Status:ADM I N Location: [place] [address] Subjective Subjective The patient was sitting in [...] on getting precertification from patient's insurance to [facility] TCU. Patient was educated in order [...] concerns, new problems. I have reviewed the [place] Automated Rx Reporting System (OARRS) report for [...] Cosigner Signature (if applicable): CC: ~ Signed [facility] Work Phone: 1(730) 851-829106-14-[address]arden [facility] Note Date/Time May 12, 2025 4:32 pm [facility] Medical Records Department [address] [place] [address] Progress Note - Hospitalist 05/12/25 1629 MR#: [id number] Acct: [id number] Name: EDSON COOK Rep #:[id number] : 1955 70 From: Lane Harden DO PCP: Dr. 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 (05/10/25) Encounter for other preprocedural examination (05/10/25) Subjective Subjective Patient was seen and examined today, social work specialist states that they told the patient she [...] 35 minutes Charges/Coding Visit Charges Inpatient E&M: 03666 Subs Hosp L2 05/12/25 1632 <Electronically signed by Lane Harden DO> Cosigner Signature (if applicable): CC: ~ Signed [facility] Work Phone: 1(202) 557-237106-14-2025 Progress note Author Bria Gan [facility] Note Date/Time May 12, 2025 9:33 am [facility] Medical Records Department [address] [place] [address] Progress Note - Orthopedic 05/12/25 0910 MR#: [id number] Acct: [id number] Name: EDSON COOK Rep #:[id number] : 1955 70 From: Bria Stephens PCP: Dr. Scott Mcdowell MD Status:ADM I N Location: [address] Subjective Subjective Patient up to chair [...] yet completed. I did speak with nursing supervisor fiberglass boat assembly we will call in the vascular team [...] gettingprecertification from patient's insurance to go to [facility] TCU. Patient was educated in order [...] with any questions, concerns, new problems. 05/12/25 1564 <Electronically signed by Bria Gan MD> Cosigner Signature (if applicable): CC: ~ Signed [facility] Work Phone: 1(405) 480-587406-14-2025 Procedure [facility] 05-11-[address] [facility] Note Date/Time May 11, 2025 5:45 pm [facility] Medical Records Department [address] [place] [address] Progress Note - Hospitalist 05/11/25 1736 MR#: [id number] Acct: [id number] Name: EDSON COOK Rep #:[id number] : 1955 70 From: Lane Harden DO PCP: Dr. Scott Mcdowell MD Status:ADM I N Location: [place] [address] Reason for Visit Reason for Visit: Diagnoses [...] Status post left knee arthroplasty. Reading Location: [place] [address] Physical Exam Const alert, oriented x3, no [...] 35 minutes Charges/Coding Visit Charges Inpatient E&M: 10470 Subs Hosp L2 05/11/25 8375 <Electronically signed by Lane Harden DO> Cosigner Signature (if applicable): CC: ~ Signed [facility] Work Phone: 1(823) 302-674006-13-2025 Progress note Author Kasey Nunez [facility] Note Date/Time May 11, 2025 4:06 pm [facility] Medical Records Department [address] [place] [address] Progress Note - Orthopedic 05/11/25 1548 MR#: [id number] Acct: [id number] Name: EDSON COOK Rep #:[id number] : 1955 70 From: Kasey ROSARIO PCP: Dr. Scott Mcdowell MD Status:ADM I N Location: [facility] FU473-9 Subjective Subjective Patient is sitting uncomfortably in [...] Status post left knee arthroplasty. Reading Location: [place] [address] Physical Exam Narrative Vital signs stable and [...] and precertificationfrom patient's insurance to go to [facility] TCU. Patient was educated that we cannot [...] Cosigner Signature (if applicable): CC: ~ Signed [facility] Work Phone: 1(968) 671-623306-12-2025 Consult note Author Richard Mo [facility] Note Date/Time May 10, 2025 5:53 pm [facility] Medical Records Department [address] [place] [address] Anesthesia Postop Eval II 05/10/25 1752 MR#: [id number] Acct: [id number] Name: EDSON COOK Rep #:[id number] : 1955 70 From: Richard Mo MD PCP: Dr. Scott Mcdowell MD Status:ADM I N Y Race: C Location: [facility] MS318 -1 Anesthesia Postop [...] Level: 2 nausea: No Vomiting: No 05/10/25 5256 <Electronically signed by Richard Mo MD > Date _ Richard Mo MD Cosigner Signature: Date CC: ~ Signed [facility] Work Phone: 1(831) 530-563306-12-2025 Consult note Author Richard Mo [facility] Note Date/Time May 10, 2025 5:18 pm [facility] Medical Records Department [address] [place] [address] Anesthesia Postop Eval I 05/10/25 1717 MR#: [id number] Acct: [id number] Name: EDSON COOK Rep #:[id number] : 1955 70 From: Richard Mo MD PCP: Dr. Scott Mcdowell MD Status:ADM I N Y Race: C Location: [place] [address] Anesthesia: Postop Eval I Current Vital Signs [...] document: Postop Eval 1 completed: Yes 05/10/25 0196 <Electronically signed by Richard Mo MD > Date _ Richard Mo MD [facility] Signature: Date CC: ~ Signed [facility] Work Phone: 1(823) 751-945506-12-2025 Radiology Diagnostic study [facility]06-12-2025 Consult note Author Richard Mo [facility] Note Date/Time May 10, 2025 11:4 5am [facility] Medical Records Department [address] [place] [address] Pre-Anesthesia Evaluation 05/10/25 1134 MR#: [id number] Acct: [id number] Name: EDSON COOK Rep #:[id number] : 1955 70 From: Richard Mo MD PCP: Dr. 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: Respiratory Tract Infection Hx - 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 Hx Respiratory Tract Infection No 04/16/25 10:16 STOP Sleep Apnea STOP Sleep Apnea - 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: STOP Sleep Apnea - 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 Hx Hypertension No 04/16/25 10:16 Hx Sleep [...] Tobacco Use History Tobacco Use History - 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: Tobacco Use History - 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 Tobacco Use Smoking Status Never smoker 04/16/25 10:16 Hx Tobacco Use No 04/16/25 10:16 Years Smoking Packs Smoked per Day Smoking Cessation Date was within the last 15 years Hx Smoking Cessation Date Hx Smoking Cessation Counseling Hematologic Medial History 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 Hx of Blood Transfusion No 04/16/25 10:16 [...] confused, unrespo /Reproduction History /Reproductive History - 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 Scott Mcdowell MD Status: LYRIC WALKER Study:Hand Min 3 Views Date of Exam: 04/22 Exam# [id number] Ordering Dr: RA CHUCK JENKINS MD PROCEDURE: HAND MIN 3 VIEWS 04/02/2025 REASON FOR EXAM: PAIN IN OTHER SPECIFIED JOINT TECHNIQUE: 3 view(s) of the left hand FINDINGS: No fracture or dislocation. The joint spaces appear within limits. No erosive change identified. RAD/Hand Min 3 Views IMPRESSION: Study appears within limits. Reading Location: [facility] CC: Dr. Scott Mcdowell MD; FIGUEROA JENKINS MD ~ Seed Potato Arranger: Signed [facility]05-06-2025 Radiology Diagnostic study note [facility] Imaging Services [address] [place], [place] [address] [phone] Hand Min 3 Views MR#: [id number] Acct: [id number] Name: EDSON COOK Rep #: [id number] : 1955 F 70 From: Hector Reynolds MD PCP: Dr. Scott Mcdowell MD Status: REG C DENISE Study:Hand Min 3 Views Date of Exam: 04/22 Exam# [id number] Ordering Dr: RA CHUCK JENKINS MD PROCEDURE: HAND MIN 3 VIEWS 04/02/2025 REASON FOR EXAM: PAIN IN OTHER SPECIFIED JOINT TECHNIQUE: 3 view(s) of the right hand FINDINGS: No fracture or dislocation. The joint spaces appear within limits. No erosive change identified. RAD/Hand Min 3 Views IMPRESSION: Study appears within limits. Reading Location: [facility] CC: Dr. Scott Mcdowell MD; FIGUEROA JENKINS MD ~ Seed Potato Arranger: Signed [facility]05-06-2025 Radiology Diagnostic study note [facility] Imaging Services [address] [place], [place] [address] Wrist min 3 Views MR#: [id number] Acct: [id number] Name: EDSON COOK Rep #: [id number] : 1955 F 70 From: Hector Reynolds MD PCP: Dr. Scott Mcdowell MD Status: REG C DENISE Study:Wrist min 3 Views Date of Exam: Exam# [id number] Ordering Dr: RA CHUCK JENKINS MD EXAM: DX wrist minimum three views CLINICAL HISTORY: Pain and other specified joint TECHNIQUE: Three views right wrist FINDINGS: No fracture or dislocation. The joint spaces appear within limits. No erosive change identified. RAD/Wrist min 3 Views IMPRESSION: Study appears within limits. Reading Location: [facility] CC: Dr. Scott Mcdowell MD; FIGUEROA JENKINS MD ~ Seed Potato Arranger: Signed [facility]05-06-2025 Radiology Diagnostic study note [facility] Imaging Services [address] [place] [address] Wrist min 3 Views MR#: [id number] Acct: [id number] Name: EDSON COOK Rep #: [id number] : 1955 F 70 From: Hector Reynolds MD PCP: Dr. Scott Mcdowell MD Status: REG C Study:Wrist min 3 Views Date of Exam: Exam# [id number] Ordering Dr: RA CHUCK JENKINS MD EXAM: DX wrist minimum three views CLINICAL HISTORY: Pain in other specified joint TECHNIQUE: Three views left wrist FINDINGS: No acute fracture or dislocation. The joint spaces appear within limits. No erosive changes identified. RAD/Wrist min 3 Views IMPRESSION: Study appears within limits. Reading Location: [facility] CC: Dr. Scott Mcdowell MD; FIGUEROA JENKINS MD ~ Seed Potato Arranger: Signed [facility]05-05-2025 Evaluation note* Diagnosis Onset Date Resolution Status [...] knee replacement inactive May 14, 2025 3:04pm [facility] Work Phone: 1(495) 249-295803-14-2025 Discharge summary Author Scott Mcdowell [facility] Note Date/Time February 09, 2025 1:5 9pm [facility] Medical Records Department [address] [place] [address] Discharge Summary 02/06/251944 MR#: [id number] Acct: [id number] Name: EDSON COOK Rep #:[id number] : 1955 69 From: Scott Mcdowell MD PCP: CHERRY Allen Status:ADM IN Location: [place] [address] Providers Date of Admission: 01/26/25 Primary Care [...] dvt. Discharge home with 02/09/2025, pending appeal, [facility] PT/OT/SN, Oxygen. Oxygen: Patient requires 2 [...] Restrictions: Discharge home with 02/09/2025, pending appeal, [facility] PT/OT/SN, Oxygen. Oxygen: Patient requires 2 [...] Health Service 02/06/251954 <Electronically signed by Scott Mcdowell MD> Cosigner Signature (if applicable): CC: CHERRY Dale; Dr. Scott Mcdowell MD~ Signed ADDENDUM by Dr. Scott Mcdowell MD on 02/09/25 at 1359 Addendum Discharge home with 02/10/2025, pending appeal, [facility] PT/OT/SN, Oxygen. 02/09/25 1359<Electronically signed by Scott Mcdowell MD> Cosigner Signature (if applicable): cc: CHERRY Dale; Dr. Scott Mcdowell MD ~* Signed [facility] Work Phone: 1(647) 283-274803-14-2025 Discharge summary [facility] Medical Records Department [address] [place] [address] Discharge Summary 02/06/251944 MR#: [id number] Acct: [id number] Name: EDSON COOK Rep #:[id number] : 1955 69 From: Scott Mcdowell MD PCP: CHERRY Allen Status:ADM IN Location: [facility] TCU08-1 Providers Date of Admission: 01/26/25 Primary [...] dvt. Discharge home with 02/09/2025, pending appeal, [facility] PT/OT/SN, Oxygen. Oxygen: Patient requires 2 [...] Restrictions: Discharge home with 02/09/2025, pending appeal, [facility] PT/OT/SN, Oxygen. Oxygen: Patient requires 2 [...] Addendum Discharge home with 02/10/2025, pending appeal, [facility] PT/OT/SN, Oxygen. 02/09/25 1359 Cosigner Signature (if applicable): cc: CHERRY Dale; Dr. Scott Mcdowell MD ~* Signed [facility]03-13-2025 Radiology Diagnostic study note [facility] Imaging Services [address] [place] [address] CTA Chest W/WO Contrast MR#: [id number] Acct: [id number] Name: EDSON COOK Rep #: [id number] : 1955 F 69 From: Nadia Burnette MD PCP: Lori Dale PROMOTIONAL 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 Status: REG CL I Study:CTA Chest W/WO Contrast Date of Exam: 02/08/25 Exam# [id number] Ordering Dr: Scott Mcdowell MD EXAM: CT [...] in 12 months is recommended. Reading Location[facility] CC: PROMOTIONAL 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 Lori Dale; Dr. Scott Mcdowell MD ~ Seed Potato Arranger: Signed [facility]03-11-2025 [facility]03-04-2025 Progress note Author Anum Cody [facility] Note Date/Time January 30, 2025 2:28 pm [facility] Medical Records Department [address] [place] [address] Progress Note - Pharmacy 01/30/25 1509 MR#: [id number] Acct: [id number] Name: EDSON COOK Rep #:[id number] : 1955 69 From: Anum Cody PCP: CLOVIS AllenC Status:ADM IN Location: [facility] Documented by User: Anum Cody 01/30/25 15:22 [...] by Scott Mcdowell MD> CC: ~ Signed [facility] Work Phone: 1(980) 938-752003-04-2025 Progress note [facility] Medical Records Department [address] [place] [address] Progress Note - Pharmacy 01/30/25 1509 MR#: [id number] Acct: [id number] Name: EDSON COOK Rep #:[id number] : 1955 69 From: Anum Cody PCP: CLOVIS AllenC Status:ADM IN Location: [place] [address] Documented by User: Anum Cody 01/30/25 15:22 [...] (if applicable): 01/30/25 1528 CC: ~ Signed [facility]02-28-2025 History and physical note Author Scott [facility] Note Date/Time January 26, 2025 2:48pm [facility] Medical Records Department [address] [place] [address] History & Physical Exam 01/26/25 1454 MR#: [id number] Acct: [id number] Name: EDSON COOK Rep #:[id number] : 1955 69 From: Scott Mcdowell MD PCP: CHERRY Allen Status:ADM IN Location: [facility] TCU08-1 HPI - General General Date of Admission: 01/26/25 Date of Service: 01/26/25 Chief Complaint: Debility HPI Narrative EDSON COOK, is a 69 Female who presents with followin01/23/2025 [facility] ED generalized weakness. Dr. Gan performed [...] Pulmonary embolism, possible pulmonary infarct. 01/23/2025 Admit [facility]. IV fluids for hypotension. Heparin drip [...] strengthening, prior to discharge home with . [facility] Medical History (Updated 01/26/25 @ 15:06 [...] Rash - Vitamin E topical bid. 01/26/25 3221 <Electronically signed by Scott Mcdowell MD> Cosigner Signature (if applicable): CC: CHERRY Dale; Dr. Scott Mcdowell MD~ Signed [facility] Work Phone: 1(316) 663-927902-28-2025 [facility]02-28-2025 History and physical note [facility] Medical Records Department [address] [place] [address] History & Physical Exam 01/26/25 1454 MR#: [id number] Acct: [id number] Name: EDSON COOK Rep #:[id number] : 1955 69 From: Scott Mcdowell MD PCP: Lori Dale, CLOVISC Status:ADM IN Location: [place] [address] HPI - General General Date of Admission: 01/26/25 Date of Service: 01/26/25 Chief Complaint: Debility HPI Narrative EDSON COOK, is a 69 Female who presents with followin01/23/2025 [facility] ED generalized weakness. Dr. Gan performed [...] Pulmonary embolism, possible pulmonary infarct. 01/23/2025 Admit [facility]. IV fluids for hypotension. Heparin drip [...] strengthening, prior to discharge home with . [facility] Medical History (Updated 01/26/25 @ 15:06 [...] 01/26/25 1548 Cosigner Signature (if applicable): CC: PROMOTIONAL MARKETING AGENTAdal Dale; Dr. Scott Mcdowell MD~ Signed [facility]02[facility]28[facility]* Diagnosis Onset Date Resolution [...] pulmonary embolus acute January 26, 2025 2:40pm [facility] Work Phone: 1(958) 340-674102-25-2025 Evaluation note* Diagnosis Onset Date Resolution Status [...] pulmonary embolus acute February 12, 2025 1:43pm [facility] Work Phone: 1(373) 976-885802-25-2025 Evaluation note* Diagnosis Onset Date Resolution Status [...] 2025 10:32am Pulmonary fibrosis suspected March 10:32am [facility] Work Phone: 1(807) 243-681102-25-2025 Evaluation note* Diagnosis Onset Date Resolution Status [...] Pulmonary hypertension chronic Ju ne 2024 10:42am [facility] Work Phone: [phone]) [phone] Evaluation note* Diagnosis Onset Date Resolution Status [...] knee replacement inactive May 14, 2025 3:04pm [facility] Work Phone: 1(443) 291-903711-25-2024 Note ORIGINAL EXAMINATION: CT OF THE LEFT KNEE WITHOUT TFGCMVGZ98/25/2024 9:[address] KNEE LEFT WITHOUT CONTRAST [...] most pronounced in the medial compartment with [id number], subchondral sclerosis, subchondral cysts and marginal osteophyte [...] Sign Date: 10/23/2024 4:58:41 PM Ordering Provider: [facility]11-20-2024 History of Present illness Narrative* Lori Dale, [employer] MANAGER-SALVAGE DIVER - 10/18/2024 8:40 AM EST Subjective Edson [...] by surgical team. 6. Surveillance for postoperative RI with ECG immediately postoperatively and on postoperative [...] discretion of the surgical team. ROSALEE Allen [facility] documented in this [facility] Work Phone: 1(777) 207-764711-18-2024 History of Present illness Narrative* ROSALEE Lyon - 10/16/2024 8:40 AM EST Subjective Reason for Visit: Edson Cook is an 69 y.o. female here for [...] lb) SpO2 94% Physical Exam Patient declined sinter feeder for exam. General: Alert and oriented, in [...] (including a Living Will, Medical Power Of Landscaping And Groundskeeping Laborer, as well as specific end of life choices and/or directives). The details of that discussion were documented in Advanced Directives Discussion section of the medical record. ROSALEE Allen [facility] documented in this [facility] Work Phone: 1([phone]) [phone] Miscellaneous Notes* ACP (Advance Care Planning) - [...] will bring in Health Care Power of Landscaping And Groundskeeping Laborer: Has filled out but not on file, [...] Lyon 10/16/2024 9:11 AM [facility]: 1(447) 672-489311-18-2024 Note* ACP (Advance Care Planning) - ROSALEE [...] will bring in Health Care Power of Landscaping And Groundskeeping Laborer: Has filled out but not on file, [...] the explanation. ROSALEE Lyon 10/16/2024 9:11 AM [facility] Work Phone: Evaluation + Plan note No data available for this section [facility] Evaluation note* Diagnosis Medicare annual wellness visit, subsequent- Primary Screening for cardiovascular condition Screening for other and unspecified cardiovascular conditions Colon cancer screening Special screening for malignant neoplasms, colon Annual physical exam Routine general medical examination at a health care facility documented in this encounter [facility] Work Phone: Evaluation note* Diagnosis Preop examination- Primary Unspecified pre-operative examination Primary osteoarthritis of left knee documented in this encounter [facility] Work Phone: Hospital Discharge instructions No data available for this section [facility] Hospital Discharge instructionsAdditional Instructions Discharge home with 05/26/2025, [facility] PT/OT/SN.[facility] Work Phone: Progress note No data available for this section [facility] Progress note Author Lane Harden [facility] Note Date/Time May 14, 2025 2:25 pm [facility] Medical Records Department [address] [place] [address] Progress Note - Hospitalist 05/14/25 1423 MR#: [id number] Acct: [id number] Name: EDSON COOK Rep #:[id number] : 1955 70 From: Lane Harden DO PCP: Dr. Scott Mcdowell MD Status:ADM I N Location: [place] [address] Reason for Visit Reason for Visit: Diagnoses [...] 50 minutes Charges/Coding Visit Charges Inpatient E&M: 42849 Subs Hosp 05/14/25 1425 <Electronically signed by Lane Harden DO> Cosigner Signature (if applicable): CC: ~ Signed [facility] Work Phone: Summary Purpose Family History No [...] January 23, 2 025 9:46pm Power of Landscaping And Groundskeeping Laborer Yes January 23, 2025 9:46pm Name of Medical Power of Landscaping And Groundskeeping Laborer Ilir Cook January 23, 2025 9:46pm Living Will Yes January 29, 2025 1:13pm Power of Landscaping And Groundskeeping Laborer Yes January 29 1:13pm Name of Medical Power of Landscaping And Groundskeeping Laborer Ilir Cook, January 29, 2025 1:13pm Advance Directive Response Recorded Date/ Time Living Will Yes January 23 9:46pm Do you have a Healthcare Pow er of Landscaping And Groundskeeping Laborer? Yes January 23, 2025 9:46pm Name of Medical Power of Landscaping And Groundskeeping Laborer Ilir Cook January 23, 2025 9:46pm Living Will Yes January 29, 2025 1:13pm Do you have a Healthcare Pow er of Landscaping And Groundskeeping Laborer? Yes January 29, 2025 1:13pm Name of Medical Power of Landscaping And Groundskeeping Laborer Ilir Cook, January 29, 2025 1:13pm Advance Directive Response Recorded Date/ Time Living Will Yes January 23 9:46pm Do you have a Healthcare Pow er of Landscaping And Groundskeeping Laborer? Yes January 23, 2025 9:46pm Name of Medical Power of Landscaping And Groundskeeping Laborer Ilir Cook January 23, 2025 9:46pm Living Will Yes January 29, 2025 1:13pm Do you have a Healthcare Pow er of Landscaping And Groundskeeping Laborer? Yes January 29, 2025 1:13pm Name of Medical Power of Landscaping And Groundskeeping Laborer Ilir Cook, January 29, 2025 1:13pm Do you have a Healthcare Pow er of Landscaping And Groundskeeping Laborer? Yes May 10, 2025 6:20pm Advance Directive Response Recorded Date/ Time Do you have a Healthcare Pow er of Landscaping And Groundskeeping Laborer? Yes May 15, 2025 4:39pm Name of Medical Power of Landscaping And Groundskeeping Laborer Ilir Cook May 15, 2025 4:39pm Living Will Yes January 23 9:46pm Do you have a Healthcare Pow er of Landscaping And Groundskeeping Laborer? Yes January 23, 2025 9:46pm Name of Medical Power of Landscaping And Groundskeeping Laborer Ilir Cook January 23, 2025 9:46pm Living Will Yes January 29, 2025 1:13pm Do you have a Healthcare Pow er of Landscaping And Groundskeeping Laborer? Yes January 29, 2025 1:13pm Name of Medical Power of Landscaping And Groundskeeping Laborer Ilir Cook, January 29, 2025 1:13pm Do you have a Healthcare Pow er of Landscaping And Groundskeeping Laborer? Yes May 10, 2025 6:20pm Advance Directive Response Recorded Date/ Time Do you have a Healthcare Power of Landscaping And Groundskeeping Laborer? Yes May 15, 2025 4:39pm Name of Medical Power of Landscaping And Groundskeeping Laborer Ilir Cook May 15, 2025 4:39pm Do you have a Healthcare Power of Landscaping And Groundskeeping Laborer? Yes May 10, 2025 6:20pm Chief Complaint [...] 2025 2:40pm Acute respiratory failure with hypoxia [facility] 2024 1:43pm Failed total left knee [...] 2:40pm Failed total left knee replacement Febru akterin 2024 2:40pm Osteoarthritis of left knee December 2:40pm Right leg DVT January 26, 2025 2:40pm Saddle pulmonary embolus January 26, 2025 2:40pm Pulmonary fibrosis January 26, 2025 2:40pm Acute respiratory failure with hypoxia [facility] 2024 1:43pm Failed total left knee [...] 11:02am ERAS, Total Knee Replacement, Revision [facility] 2024 4:26pm ERAS, Total Knee Replacement, Revision [facility] 2024 5:36pm ERAS, Total Knee Replacement, Revision [facility] 2024 4:29pm ERAS, Total Knee Replacement, Revision [facility] 2024 11:31am ERAS, Total Knee Replacement, Revision [facility] 2024 11:22am L KNEE REVISION May 14, [...] 2:40pm Failed total left knee replacement Febru katrein 2024 2:40pm Acute respiratory failure with hypoxia [...] 11:02am ERAS, Total Knee Replacement, Revision [facility] 2024 4:26pm ERAS, Total Knee Replacement, Revision [facility] 2024 5:36pm LLE PAIN May 12, 2025 10:3 3am ERAS, Total Knee Replacement, Revision [facility] 2024 4:29pm ERAS, Total Knee Replacement, Revision [facility] 2024 11:31am ERAS, Total Knee Replacement, Revision [...] section and content) DATE CREATED AUTHOR 08/10/2019 [facility] DATE CREATED AUTHOR AUTHOR'S ORGANIZ ATION 08/13/2019 [employer] DATE CREATED AUTHOR AUTHOR'S ORGANIZ ATION 10/20/2024 [facility] DATE CREATED AUTHOR AUTHOR'S ORGANIZ ATION 10/24/[address] [facility] DATE CREATED AUTHOR AUTHOR'S ORGANIZ ATION 06/29/2025 [facility] DATE CREATED AUTHOR AUTHOR'S ORGANIZ ATION 07/16/2025 [facility] Reason for Visit (unrecogniz ed section and content) Reason Comments Establish Care Reason Comments Follow-up Care Teams (unrecognized sec tion and content) Cook [employer] Relationship Specialty Start Date End Date Lori Dale, GOLF CLUB MANAGER-SALVAGE DIVER [address] [facility] [address] [place] [address] PCP - General Family Medicine 09/21/24 Bria Gan MD [address] [place] [id number] Referring Physician Orthopaedic Surgery 10/16/24 Cook [employer] Relationship Specialty Start Date End Date Lori Dale, GOL[employer] CLUB MANAGER-SALVAGE DIVER [address] [facility] [place], [place] [id number] PCP - General Family Medicine 09/21/24 Bria Gan MD [address] [place] [address] Referring Physician Orthopaedic Surgery 10/16/24 [...] S tart: January 24, 2025 Dr. Lori aMtthews DO Other Provider Active Start : January 24, 2025 Team Status: Active Member Role Status Dates Lori Dale PROMOTIONAL 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 Primary Care Provider Active Start: January 24, 2025 Dr. Gurinder Yan MD Attending Provider Activ e Start: January 24, 2025 Team Status: Active Member Role Status Dates Lori Dale PROMOTIONAL 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 Primary Care Provider Active Start: January 24, [...] Active St art: January 24, 2025 Dr. iPero Payne DO Other Provider Active Start: January [...] Active Start: January 24, 2025 Dr. Johnny Doehrty MD Other Provider Active Star t: January [...] Active Member Role Status Dates Lori Dale PROMOTIONAL 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 Primary Care Provider Active Start: January 25, [...] Active Member Role Status Dates Lori Dale PROMOTIONAL 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 Primary Care Provider Active Start: January 26, [...] Active Member Role Status Dates Lori Dale PROMOTIONAL 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 Primary Care Provider Active Start: February 07, [...] Inactive Member Role Status Dates Lori Dale PROMOTIONAL 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 Primary Care Provider Active Start: February 07, 2025 End: February 07, 2025 Dr. Scott Mcdowell MD Attending Provider Active Start: February 07, 2025 End: February 07, 2025 Dr. Scott Mcdowell MD Referring Provider Active Start: February 07, 2025 End: February 07, 2025 Team Status: Inactive Member Role Status Dates Lori Dale PROMOTIONAL 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 Primary Care Provider Active Start: February 12, 2025 End: February 12, 2025 Lori Dale NP-C Referring Provider Active S tart: February 12, 2025 End: February 12, 2025 Cindy Guerrier NP, PROMOTIONAL 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 Attending Provider Active Start: February 12, 2025 [...] Inactive Member Role Status Dates Lori Dale PROMOTIONAL 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 Primary Care Provider Active Start: February 08, [...] 2025 End: February 27, 2025 Cindy Guerrier PROMOTIONAL MARKETING AGENT, PROMOTIONAL 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 Attending Provider Active Start: February 27, 2025 End: February 27, 2025 Cindy Guerrier PROMOTIONAL MARKETING AGENT, PROMOTIONAL 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 Referring Provider Active Start: February 27, 2025 [...] 2025 End: April 02, 2025 Cindy Guerrier PROMOTIONAL MARKETING AGENT, PROMOTIONAL 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 Attending Provider Active Start: April 02, 2025 [...] Active Member Role Status Dates Dr. Scott Mdcowell MD Primary Care Provider Active Start: May [...] Inactive Member Role/Relationship Status Dates Lori Dale PROMOTIONAL 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 Primary Care Provider Active Start: January 26, 2025 End: February 10, 2025 Dr. Scott Mcdowell MD Admit Provider Active Star t: January 26, 2025 End: February 10, 2025 Dr. Scott Mcdowell MD Attending Provider Active Start: January 26, 2025 End: February 10, 2025 Team Status: Inactive Member Role/Relationship Status Dates Lori Dale PROMOTIONAL 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 Primary Care Provider Active Start: February 07, 2025 End: February 07, 2025 Dr. Scott Mcdowell MD Attending Provider Active Start: February 07, 2025 End: February 07, 2025 Dr. Scott Mcdowell MD Referring Provider Active Start: February 07, 2025 End: February 07, 2025 Team Status: Active Member Role/Relationship Status Dates Lori Dale PROMOTIONAL 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 Primary Care Provider Active Start: February 07, 2025 Dr. Raymundo Petty MD Attending Provider Active S tart: February 07, 2025 Dr. Scott Mcdowell MD Referring Provider Active Start: February 07, 2025 Team Status: Inactive Member Role/Relationship Status Dates Lori Dale PROMOTIONAL 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 Primary Care Provider Active Start: February 08, 2025 End: February 08, 2025 Dr. Scott Mcdowell MD Attending Provider Active Start: February 08, 2025 End: February 08, 2025 Dr. Scott Mcdowell MD Referring Provider Active Start: February 08, 2025 End: February 08, 2025 Team Status: Inactive Member Role/Relationship Status Dates Lori Dale PROMOTIONAL 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 Primary Care Provider Active Start: February 12, 2025 End: February 12, 2025 Lori Dale NP-C Referring Provider Active S tart: February 12, 2025 End: February 12, 2025 Cindy Guerrier NP, PROMOTIONAL 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 Attending Provider Active Start: February 12, 2025 [...] 2025 End: February 27, 2025 Cindy Guerrier PROMOTIONAL MARKETING AGENT, PROMOTIONAL 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 Attending Provider Active Start: February 27, 2025 End: February 27, 2025 Cindy Guerrier PROMOTIONAL MARKETING AGENT, PROMOTIONAL 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 Referring Provider Active Start: February 27, 2025 [...] End: April 02, 2025 Cindy Guerrier NP, PROMOTIONAL 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 Attending Provider Active Start: April 02, 2025 [...] 2025 End: February 27, 2025 Cindy Guerrier PROMOTIONAL MARKETING AGENT, PROMOTIONAL 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 Attending Provider Active Start: February 27, 2025 End: February 27, 2025 Cindy Guerrier PROMOTIONAL MARKETING AGENT, PROMOTIONAL 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 Referring Provider Active Start: February 27, 2025 [...] 2025 End: April 02, 2025 Cindy Guerrier PROMOTIONAL MARKETING AGENT, PROMOTIONAL 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 Attending Provider Active Start: April 02, 2025 [...] BE BASED ON THE PRIMARY CLINICAL RECORDS. [facility] [employer] provides no warranty or guarantee of the accuracy or completeness of information in this document.
--- NOTE | 2025-07-21 11:00 | ECHOD_ITS ---
Reason For Study Reason For Study: PE Procedure This was a 2D Doppler, Color Flow transthoracic echocardiogram. Exam performed in department. Left Ventricle Normal LV size. The left ventricular ejection fraction is 65 %. Stage 1 diastolic dysfunction. No regional wall motion abnormalities noted. Right Ventricle Normal RV size. Normal systolic function. Atria Normal left atrium. Normal right atrium. Mitral Valve Normal mitral valve. Tricuspid Valve Normal tricuspid valve. Mild (1+) tricuspid valve insufficiency. Pulmonary artery systolic pressure is 34 mmHg. Aortic Valve Trisinus/trileaflet aortic valve. Pulmonic Valve Normal pulmonic valve. Great Vessels Normal aortic root. The pulmonary artery is normal size. Inferior vena cava collapse with respiration. Pericardium/Pleural No pericardial effusion. MMode/2D Measurements & Calculations LVIDd: 4.7 cm IVSd: 0.90 cm Ao root diam: 3.0 cm LVIDs: 3.0 cm LVPWd: 0.90 cm RVDd: 2.8 cm FS: 36.6 % LAV(MOD-bp): 38.1 ml LVAd ap4: 23.3 cm2 LVAd ap2: 21.3 cm2 LAV(MOD-bp) Indexed: 22.2 ml/m2 LVLd ap4: 7.5 cm LVLd ap2: 7.3 cm LAV(MOD-sp2): 38.5 ml EDV(MOD-sp4): 59.7 ml EDV(MOD-sp2): 53.0 ml LAV(MOD-sp4): 36.2 ml EDV(sp4-el): 61.2 ml EDV(sp2-el): 52.6 ml LVAs ap4: 11.4 cm2 LVAs ap2: 9.3 cm2 LVLs ap4: 6.4 cm LVLs ap2: 6.1 cm ESV(MOD-sp4): 17.9 ml ESV(MOD-sp2): 13.1 ml ESV(sp4-el): 17.2 ml ESV(sp2-el): 12.0 ml EF(MOD-sp4): 70.0 % EF(MOD-sp2): 75.3 % EF(sp4-el): 72.0 % SV(MOD-sp4): 41.8 ml SV(MOD-sp2): 39.9 ml SV(sp4-el): 44.1 ml SI(MOD-sp4): 24.4 ml/m2 SI(MOD-sp2): 23.2 ml/m2 LA A4 area: 15.2 cm2 LA dimension(2D): 3.3 cm RA A4 area: 14.8 cm2 TAPSE: 1.5 cm Time Measurements MV dec time: 0.27 sec Doppler Measurements & Calculations MV E max isael: 72.9 cm/sec Lat Peak E' Isael: 10.5 cm/sec Med Peak E' Isael: 10.1 cm/sec MV A max isael: 89.9 cm/sec E/E' lat: 6.9 E/E' med: 7.2 MV E/A: 0.81 MV V2 max: 101.9 cm/sec MV P1/2t max isael: 79.3 cm/sec Ao V2 max: 147.3 cm/sec MV max P.2 mmHg MV P1/2t: 73.6 msec Ao max P.7 mmHg MV V2 mean: 52.8 cm/sec Ao V2 mean: 99.1 cm/sec MV mean P.3 mmHg MV dec slope: 315.4 cm/sec2 Ao mean P.4 mmHg MV V2 VTI: 26.9 cm MVA(P1/2t): 3.0 cm2 Ao V2 VTI: 31.8 cm AV (velocity ratio): 0.78 LV V1 max: 112.8 cm/sec PA V2 max: 83.8 cm/sec TR max isael: 274.0 cm/sec LV V1 max P.1 mmHg PA V2 mean: 57.1 cm/sec TR max P.0 mmHg LV V1 mean P.7 mmHg PA V2 VTI: 18.7 cm LV V1 mean: 78.2 cm/sec LV V1 VTI: 25.0 cm ECHO/Echo Complete Interpretation Summary The left ventricular ejection fraction is 65 %. Normal LV size. Stage 1 diastolic dysfunction. Normal RV size. Normal systolic function. Pulmonary artery systolic pressure is 34 mmHg. Ordering Physician: Alex Ramos V Referring Physician: Alex Ramos V Performed By: Bere Scott RDCS, RVT
== END | disposition home or self-care (01) ==
LOC: CVS 10:47
PROVIDERS: PCP Family Medicine Geriatric Medicine; Referring Provider Internal Medicine Pulmonary Disease; Visit Provider Internal Medicine Pulmonary Disease
DX: I27.82 Chronic pulmonary embolism (principal); R09.02 Hypoxemia
CPT/HCPCS: 93306

== ENCOUNTER → 2025-07-21 | Outpatient (CLI) | payer MEDICARE, SELFPAY ==
--- OUTSIDE RECORDS SUMMARY | 2025-07-21 10:48 | XMS RPT_ITS | CCD ---
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 Martha Long DO Emergency Provider Dr. Raymundo Bhardwaj DO Admit Provider Dr. Raymundo Bhardwaj DO Other Provider Dr. Raymundo Petty MD Other Provider Dr. Lori Matthews DO Attending Provider [phone] Raymundo Bhardwaj DO Attending Provider Jose SARMIENTO, Dr. Fleming Other Provider Dr. Casey Norton MD Other Provider Dr. Caleb Godinez MD Other Provider Dr. Cuba Allred DO Other Provider Dr. Charles Langley MD Other Provider [phone] Philly SARMIENTO, Dr. Licea Other Provider Adarsh SARMIENTO, Dr. Higuera Other Provider [phone] Nellie SARMIENTO, Dr. Granados Other Provider Oswaldo SARMIENTO, Dr. Wiley Other Provider [phone] Micah SARMIENTO, Dr. Bunn Other Provider [phone] Zach SARMIENTO, Dr. Oviedo Other Provider Janay SARMIENTO, Dr. Neville Other Provider Daphnie SARMIENTO, Dr. Duron Other Provider [facility]nie Pineda MD, Dr. Tijerina Other Provider [phone] Alli SARMIENTO, Dr. Minor Other Provider Fritz SARMIENTO, Dr. Whittington Other Provider [phone] Cornoa SARMIENTO, Dr. Miguel Other Provider [phone] Mica MARTELL, Dr. Stakrs Other Provider [phone] Megan SARMIENTO, Dr. Chan Other Provider [phone] Erika SARMIENTO, Dr. Reyes Other Provider [phone] Kerry MARTELL, Dr. Harry Other Provider Chas SARMIENTO, Dr. Turner Other Provider [phone] Kuldeep SARMIENTO, Dr. Regalado Other Provider [phone] Lori Matthews DO Other Provider Yuriy SARMIENTO, Dr. Fairchild Attending Provider Dr. Cuba Allred DO Attending Provider Dr. Lori Matthews DO Referring Provider Dr. Raymundo Bhardwaj DO Referring Provider Dr. Raymundo Petty MD Attending Provider Jeremias SARMIENTO, Dr. Scott Pabon Admit Provider Jeremias SARMIENTO, Dr. Scott Pabon Attending Provider Jeremias SARMIENTO, Dr. Scott Pabon Referring Provider Jameel BRONZE PLATER-C, Lori Referring Provider Fareed BRONZE PLATER-C, Cindy Attending Provider Jeremias SARMIENTO, Dr. Scott Pabon Primary Care Provider Fareed BRONZE PLATER-C, Cindy Referring Provider GREGORY SARMIENTO, FIGUEROA Attending Provider GREGORY SARMIENTO, FIGUEROA Referring Provider Jameel BRONZE PLATER-C, Lori Primary Care Provider Dr. Martha Long DO Emergency Provider Lashae MARTELL, Dr. Fonseca Admit Provider Dr. Raymundo Bhardwaj DO Other Provider Dr. Raymundo Petty MD Other Provider Byron MARTELL, Dr. Sandoval Attending Provider [phone] Lashae MARTELL, Dr. Fonseca Attending Provider Jose SARMIENTO, Dr. Fleming Other Provider Cierra SARMIENTO, Dr. Peña Other Provider Herbert SARMIENTO, Dr. Ellis Other Provider Dr. Cuba Allred DO Other Provider Shivam SARMIENTO, Dr. Charles Nash Other Provider Philly SARMIENTO, Dr. Licea Other Provider Adarsh SARMIENTO, Dr. Higuera Other Provider Nellie SARMIENTO, Dr. Granados Other Provider Oswaldo SARMIENTO, Dr. Wiley Other Provider Dr. Oni Obrien MD Other Provider Zach SARMIENTO, Dr. Oviedo Other Provider Janay SARMIENTO, Dr. Neville Other Provider [phone] Daphnie SARMIENTO, Dr. Duron Other Provider Unavailabl lonnie Pineda MD, Dr. Tijerina Other Provider Alli SARMIENTO, Dr. Minor Other Provider Fritz SARMIENTO, Dr. Whittington Other Provider Corona SARMIENTO, Dr. Miguel Other Provider Mica MARTELL, Dr. Starks Other Provider Megan SARMIENTO, Dr. Chan Other Provider Erika SARMIENTO, Dr. Reyes Other Provider Kerry MARTELL, Dr. Harry Other Provider Chas SARMIENTO, Dr. Turner Other Provider [phone] Kuldeep SARMIENTO, Dr. Regalado Other Provider Byron MARTELL, Dr. Sandoval Other Provider Yuriy SARMIENTO, Dr. Fairchild Attending Provider Dr. Cuba Allred DO Attending Provider [phone] Dr. Lori Matthews DO Referring Provider [phone] Raymundo Bhardwaj DO Referring Provider Malinda SARMIENTO, Dr. Fonseca Attending Provider [phone] Jeremias SARMIENTO, Dr. Scott Pabon Admit Provider Dr. Scott Mcdowell MD, Chi Attending Provider Dr. Scott Mcdowell MD, Chi Referring Provider Jameel BRONZE PLATER-CLori Referring Provider [phone] Fareed BRONZE PLATER-CCindy Attending Provider Dr. Scott Mcdowell MD, Chi Primary Care Provider Fareed BRONZE PLATER-C, Cindy Referring Provider FIGUEROA JENKINS MD Attending Provider FIGUEROA JENKINS MD Referring Provider Elvia SARMIENTO, Dr. Gomez Attending Provider [phone] Elvia SARMIENTO, Dr. Gomez Referring Provider [phone] Elvia SARMIENTO, Dr. Gomez Admit Provider Fina MARTELL, Dr. Sherman Other Provider Elvia SARMIENTO, Dr. Gomez Other Provider Fina MARTELL, Dr. Sherman Attending Provider Elvia SARMIENTO, Dr. Gomez Attending Provider [phone] Elvia SARMIENTO, Dr. Gomez Referring Provider [phone] Byron , Dr. Sandoval Other Provider Malinda SARMIENTO, Dr. Fonseca Attending Provider [phone] Elvia SARMIENTO, Dr. Gomez Admit Provider Fina MARTELL, Dr. Sherman Other Provider Jeremais SARMIENTO, Dr. Scott Pabon Primary Care Provider Fareed YI-CCindy Attending Provider Jeremias SARMIENTO, Dr. Scott Pabon Referring Provider Malinda SARMIENTO, Dr. Fonseca Attending Provider [phone] Elvia SARMIENTO, Dr. Gomez Admit Provider [phone] Fina MARTELL, Dr. Sherman Other Provider Elvia SARMIENTO, Dr. Gomez Other Provider Fina MARTELL, Dr. Sherman Attending Provider [phone] Wagner SARMIENTO, Dr. Luca Hernandez Attending Provider Kasey Funes Referring Provider Jeremias SARMIENTO, Dr. Scott Pabon Admit Provider Jeremias SARMIENTO, Dr. Scott Pabon Attending Provider KASEY NUNEZ PA-C Attending Unavailab hakan CROWLEY PA-C, VICK Marr Attending Unavailable ELVIA SARMIENTO, DR BRIA Hernandez Attending Unavailab hakan GAN MD, DR BRIA Hernandez Attending Unavailab Bria Huang Admitting Unavailable Bria Gan Attending Unavailable Lori Dale Primary Care Unavailable Lori Dale Primary Care Unavailable Jeremias, Scott Chi Attending Unavailable Jeremias, Scott Chi Admitting Unavailable Jeremias, Scott Chi Primary Care Unavailable Guerrier BRONZE PLATER, Cindy Referring Unavailable Guerrier BRONZE PLATER, Cindy Attending Unavailable Jeremias, Scott Chi Referring Unavailable Jameel, Lori Primary Care Unavailable Amite, Raymundo Attending Unavailable Jameel, Lori Primary Care Unavailable Jopperi, Raymundo Admitting Unavailable Malinda, Raymundo Consulting Unavailable Lori Matthews Attending Unavailable Jopperi, Raymundo Consulting Unavailable Jeremias, Scott Chi Primary Care Unavailable FIGUEROA JENKINS Referring Unavailable FIGUEROA JENKINS Attending Unavailable Jeremias, Scott Chi Primary Care Unavailable Elvia, Bria Referring Unavailable Bria Gan Attending Unavailable Lane Harden Consulting Unavailable Elvia, Bria Referring Unavailable Jeremias, Scott Chi Primary Care Unavailable Bria Gan Attending Unavailable Elvia, Bria Admitting Unavailable Jameel, Lori Primary Care Unavailable Jeremias, Scott Chi Referring Unavailable Jeremias, Scott Chi Attending Unavailable Jeremias, Scott Chi Primary Care Unavailable Jeremias, Scott Chi Referring Unavailable Guerrier BRONZE PLATER, Cindy Attending Unavailable Jameel, Lori Primary Care Unavailable Jameel, Lori Referring Unavailable Guerrier BRONZE PLATER, Cindy Attending Unavailable Gurinder Yan Attending Unavailabl e Jameel, Lori Primary Care Unavailable Cuba Allred Attending Unavailable Jeremias, Scott Chi Referring Unavailable Jeremias, Scott Chi Primary Care Unavailable AmiteRandyic Attending Unavailable Jeremias, Scott Chi Primary Care Unavailable Jeremias, Scott Chi Attending Unavailable Jeremias, Scott Chi Primary Care Unavailable ElviaBria saxena Attending Unavailable Jeremias, Scott Chi Primary Care Unavailable Jeremias, Scott Chi Referring Unavailable Jeremias, Scott Chi Attending Unavailable Jeremias, Scott Chi Primary Care Unavailable Sibilia, Alex V Attending Unavailable Jeremias, Scott Chi Primary Care Unavailable Sibilia, Alex V Referring Unavailable Sibilia, Alex V Attending Unavailable Jopperi, Raymundo Admitting Unavailable Malinda, Raymundo Attending Unavailable Jameel, Lori Primary Care Unavailable Malinda, Raymundo Consulting Unavailable Jopperi, Raymundo Referring Unavailable Lonnie Garcia Consulting Unavailable Casey Norton Consulting Unavailable Caleb Godinez Consulting Unavailable Cuba Allred Consulting Unavailable Charles Langley Consulting Unavailable Vinayak Fraga Consulting Unavailable Kalen Altamirano Consulting Unavailable Roberta Ballard Consulting UnavailSaurabh Conn Consulting Unavailable Oni Obrien Consulting Unavailable Preet Serrano Consulting Unavailable Kelin Gustafson Consulting Unavailable Oliverio Eller Consulting Unavailable Lilliana Pineda Consulting Unavailable Iván Carson Consulting Unavailable Pk Hu Consulting Unavailable Lamont Jeter Consulting Unavailable Raudel Nino Consulting Unavailable Rocio Guzman Consulting Unavailable Amy James Consulting Unavailable Piero Payne Consulting Unavailable Johnny Doherty Consulting Unavailable Fabricio Light Consulting Unavailable Raymundo Bhardwaj Consulting Unavailable Lori Matthews Consulting Unavailable Cuba Allred Attending Unavailable Lori Matthews Referring Unavailable Jeremias, Scott Chi Primary Care Unavailable Jeremias, Scott Chi Attending Unavailable Jeremias, Scott Chi Admitting Unavailable Bria Gan Admitting Unavailable Lane Harden Attending Unavailable Bria Gan Referring Unavailable Jeremias, Scott Chi Primary Care Unavailable Lane Harden Consulting Unavailable Bria Gan Consulting Unavailable Lori Dale Primary Care Unavailable Jeremias, Scott Chi Referring Unavailable Jeremias, Scott Chi Attending Unavailable Lori Matthews Attending Unavailable Raymundo Bhardwaj Attending Unavailable Medications Current Medications Medication Drug Class(es) Dates Sig (Normalized) Sig (Original) acetaminophen 500 mg oral tablet (3 sources) Start: 05-14-2025 take 2 tablets by mouth every eight hours Acetaminophen 500 mg Tablet Active 1000 mg PO EVERY 8 HOURS 0 0 May 14, 2025 12:00am Pain apixaban 5 mg oral tablet (20 sources) Factor Xa Inhibitor Start: 01-26-2025 End: 02-06-2025 take 1 tablet by mouth twice daily Apixaban (Eliquis) 5 mg Tablet Active 5 mg PO TWICE A DAY 60 30 0 February 06, 2025 12:00am BLOOD THINNER ascorbic acid 100 mg oral tablet (4 sources) Vitamin C Start: 04-16-2025 Ascorbic Acid (Vitamin C) (Vitamin C) 100 mg tablet Active 600 mg PO DAILY April 16, 2025 12:00am SUPPLEMENT baclofen 10 mg oral tablet (14 sources) gamma-Aminobuty clyde Acid-ergic Agonist Start: 02-06-2025 End: 04-16-2025 take 1 tablet by mouth at bedtime Baclofen 10 mg Tablet Active 10 mg PO AT BEDTIME April 16, 2025 12:00am Muscle Spasm calcium carbonate 1250 mg / cholecalciferol 200 unt oral tablet (2 sources) Vitamin D take 1 tablet by mouth once daily calcium carbonate-vitamin D3 500 mg-5 mcg (200 unit) tablet Take 1 tablet by mouth once daily. Active docusate sodium 50 mg / sennosides, assisted 8.6 mg oral tablet (5 sources) Start: 05-14-2025 End: 05-23-2025 Sennosides-Docusate Sodium (Stimulant Laxative Plus) 8.6-50 mg Tablet Active 2 {tbl} PO TWICE A DAY 120 30 0 May 23, 2025 12:00am Start: 05-14-2025 End: 05-23-2025 famotidine 20 mg oral tablet (5 sources) Histamine-2 Receptor Antagonist Start: 05-14-2025 End: 05-23-2025 take 1 tablet by mouth once daily Famotidine 20 mg Tablet Active 20 mg PO DAILY 30 30 0 May 23, 2025 12:00am ferrous sulfate 325 mg oral tablet (2 sources) Start: 05-14-2025 End: 05-23-2025 Ferrous Sulfate (Ferosul) 325 mg (65 mg iron) Tablet Active 325 mg PO 1200,1700 60 30 May 23, 2025 12:00am folic acid 1 mg oral tablet (5 sources) Start: 05-14-2025 End: 05-23-2025 take 1 tablet by mouth at breakfast Folic Acid 1 mg Tablet Active 1 mg PO WITH BREAKFAST 30 30 May 23, 2025 12:00am Start: 05-14-2025 End: 05-23-2025 oxyCODONE hydrochloride 5 mg oral tablet (20 sources) Opioid Agonist Start: 05-14-2025 End: 05-23-2025 take 5-10 mg by mouth every four hours as needed for pain Oxycodone 5 mg Tablet Active 5 - 10 mg PO EVERY 4 HOURS NEEDED as needed for Pain Score 4-10 42 7 0 May 23, 2025 Osteoarthritis of left knee Unilateral primary osteoarthritis, left knee Start: 01-23-2025 End: 02-06-2025 take 1 tablet by mouth every four hours as needed for pain Oxycodone 5 mg tablet Discontinued 5 mg PO Q4H as needed for pain 12 2 0 January 26, 2025 February 06, 2025 7:51pm Pulmonary embolism Saddle embolus of pulmonary artery without acute cor pulmonale VITAMIN C, ASCORBATE CALCIUM, ORAL (2 sources) VITAMIN C, ASCOR JIMENEZ CALCIUM, ORAL Take by mouth. Active Vitamin D3-Vitamin K2 125 mcg (5,000 unit)-100 mcg capsule (2 sources) Start: 04-16-2025 take 1 capsule by mouth once daily Vitamin D3-Vitamin K2 125 mcg (5,000 unit)-100 mcg capsule Active 1 NMA PO DAILY April 16, 2025 12:00am SUPPLEMENT Start: 04-16-2025 take 1 capsule by mo uth once daily Vitamin D3-Vitamin K2 125 mcg (5,000 unit)-100 mcg capsule Active 1 NMA PO DAILY April 16, 2025 12:00am (11 sources) Start: 05-23-2025 Start: 05-14-2025 End: 05-23-2025 Start: 05-14-2025 End: 05-23-2025 Start: 05-14-2025 Start: 04-16-2025 Start: 01-23-2025 End: 02-06-2025 Start: 01-23-2025 End: 02-06-2025 Completed/Discontinued Medications Medication Drug Class(es) Dates Sig (Normalized) Sig (Original) [id number] 200 actuat albuterol 0.09 mg/actuat metered dose inhaler (5 sources) beta2-Adrenergic Agonist Start: 04-02-2025 End: 05-14-2025 Albuterol Sulfate (Ventolin Hfa) 90 mcg/actuation HFA aerosol inhaler Discontinued 2 NMA INHALATION Q4H as needed for shortness of breath or wheezing 18 11 April 02, 2025 12:00am May 14, 2025 11:36am Start: 04-02-2025 End: 05-14-2025 doxycycline monohydrate 100 mg oral capsule (3 sources) Tetracycline-class Drug Start: 05-14-2025 End: 05-23-2025 Doxycycline Monohydrate 100 mg Capsule Discontinued 100 mg PO TWICE A DAY 0 0 May 14, 2025 12:00am May 23, 2025 8:59pm infection administer for 14 days then discontinue 0.8 ml enoxaparin sodium 100 mg/ml prefilled syringe (3 sources) Low Molecular Weight Heparin Start: 05-10-2025 End: 05-14-2025 Enoxaparin 80 mg/0.8 mL syringe Discontinued 80 mg SC Q12H May 10, 2025 12:00am May 14, 2025 11:37am saddle dvt Start: 05-10-2025 End: 05-14-2025 gabapentin 100 mg oral capsule (20 sources) Anti-epileptic Agent Start: 02-06-2025 End: 05-14-2025 take 2 capsules by mouth at bedtime Gabapentin 100 mg Capsule Discontinued 200 mg PO AT BEDTIME 60 30 0 February 06, 2025 12:00am April 02, 2025 10:36am meloxicam 7.5 mg oral tablet (10 sources) Nonsteroidal Anti-inflammatory Drug Start: 01-23-2025 End: 02-06-2025 take 1 tablet by mouth twice daily Meloxicam 7.5 mg tablet Discontinued 7.5 mg PO TWICE A DAY January 23, 2025 1:00am February 06, 2025 7:51pm pain No Reported Medications (2 sources) No Reported Medications Refills: 0 Active No Reported Medi cations Refills: 0 DO Active Nut.Tx.Comp. Immune Systm,Reg (Ensure Surgery) 0.08-1.4 gram-kcal/mL Liquid (1 source) Start: 05-14-2025 End: 05-23-2025 Nut.Tx.Comp. Immune Systm,Reg (Ensure Surgery) 0.08-1.4 gram-kcal/mL Liquid Discontinued 237 mL PO 3 TIMES DAILY WITH MEALS 0 0 May 14, 2025 12:00am May 23, 2025 9:01pm diet supplement promethazine hydrochloride 25 mg oral tablet (3 sources) Phenothiazine Start: 05-14-2025 End: 05-23-2025 Promethazine 25 mg Tablet Discontinued 12.5 mg PO EVERY 6 HOURS NEEDED as needed for Nausea/Vomiting 0 0 May 14, 2025 12:00am May 23, 2025 9:01pm Sennosides (Senna) 8.6 mg tablet (8 sources) Start: 01-23-2025 End: 02-06-2025 take 2 tablets by mouth once daily as needed for constipation Sennosides (Senna) 8.6 mg tablet Discontinued 17.2 mg PO DAILY as needed for constipation January 23, 2025 1:00am February 06, 2025 7:52pm traMADol hydrochloride 50 mg oral tablet (14 sources) Opioid Agonist Start: 02-06-2025 End: 05-14-2025 take 1 tablet by mouth at bedtime as needed for pain Tramadol 50 mg Tablet Discontinued 50 mg PO AT BEDTIME as needed for Pain Score 4-5 Or Pre Pt/Ot April 16, 2025 12:00am May 14, 2025 11:40am Vitamin E oil (8 sources) Start: 01-23-2025 End: 02-06-2025 Vitamin E oil Discontinued 1 NMA TOPICAL DAILY January 23, 2025 1:00am February 06, 2025 7:52pm to affected area Start: 01-23-2025 End: 02-06-2025 Vitamin E oil Discontinued 1 NMA TOPICAL DAILY January 23, 2025 1:00am February 06, 2025 7:52pm Problems Active Problems Problem Classification Problem Date Documented Da te Episodic/Chronic Complication of device; implant or graft (20 sources) Disorder of prosthetic joint; Translations: [Other 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, initial encounter] Onset: 05-19-2025 01-26-2025 Episodic Deficiency and other anemia (5 sources) Anemia; Translations: [Anemia, unspecified] 05-14-2025 Episodic Diseases of white blood cells (20 sources) Leukocytosis; Translations: [Elevated white blood cell count, unspecified] Onset: 02-02-2025 01-24-2025 Chronic Disorders of lipid metabolism (1 source) Hyperlipidemia, unspecified; Translations: [Hyperlipidemia, unspecified] Onset: 02-20-2025 Chronic Immunizations and screening for infectious disease (20 sources) Rheumatoid factor positive; Translations: [Other specified abnormal immunological findings in serum] 02-12-2025 Episodic Malaise and fatigue (20 sources) Asthenia; Translations: [Other malaise] Onset: 06-27-2025 01-26-2025 Episodic Osteoarthritis (20 sources) Osteoarthritis of left knee joint; Translations: [Unilateral primary osteoarthritis, left knee] Onset: 10-16-2024 10-16-2024 Chronic Other acquired deformities (1 source) Acquired genu varum; Translations: [Varus deformity, not elsewhere classified, left knee] Episodic Other aftercare (1 source) Aftercare following joint replacement surgery; Translations: [Aftercare following joint replacement surgery] Onset: 06-27-2025 Chronic Other connective tissue disease (1 source) Artificial knee joint present; Translations: [Presence of left artificial knee joint] Chronic Other connective tissue disease (1 source) Presence of left artificial knee joint; Translations: [Presence of left artificial knee joint] Onset: 06-27-2025 Chronic Other lower respiratory disease (20 sources) Fibrosis of lung; Translations: [Pulmonary fibrosis, unspecified] 01-26-2025 Chronic Other lower respiratory disease (10 sources) Pleuritic pain; Translations: [Pleurodynia] 01-24-2025 Episodic Other lower respiratory disease (19 sources) Hypoxia; Translations: [Hypoxemia] 01-24-2025 Episodic Other nervous system disorders (1 source) Complex regional pain syndrome of upper limb; Translations: [Complex regional pain syndrome I of right upper limb] Onset: 10-18-2024 10-18-2024 Chronic Other non-traumatic joint disorders (2 sources) Pain in left knee; Translations: [Pain in left knee] Onset: 05-23-2025 Episodic Other non-traumatic joint disorders (1 source) Stiffness of left knee, not elsewhere classified; Translations: [Stiffness of left knee, not elsewhere classified] Onset: 06-27-2025 Episodic Other screening for suspected conditions (not mental disorders or infectious disease) (8 sources) Patient encounter status; Translations: [Encounter for screening for cardiovascular disorders] Onset: 10-16-2024 10-16-2024 Episodic Other skin disorders (1 source) Localized swelling, mass and lump, left lower limb; Translations: [Localized swelling, mass and lump, left lower limb] Onset: 04-16-2025 Episodic Phlebitis; thrombophlebitis and thromboembolism (19 sources) Deep venous thrombosis of lower extremity; Translations: [Acute embolism and thrombosis of unspecified deep veins of right lower extremity] 01-26-2025 Episodic Pulmonary heart disease (20 sources) Saddle embolus of pulmonary artery; Translations: [Saddle embolus of pulmonary artery without acute cor pulmonale] Onset: 02-02-2025 01-26-2025 Chronic Comment on above: RVSP 40 mmHg 12/2024 AND 01/2025 Respiratory failure; insufficiency; arrest (adult) (15 sources) Chronic hypoxemic respiratory failure; Translations: [Chronic respiratory failure with hypoxia] 04-02-2025 Chronic Respiratory failure; insufficiency; arrest (adult) (20 sources) Acute respiratory failure; Translations: [Acute respiratory failure with hypoxia] 01-26-2025 Episodic Spondylosis; intervertebral disc disorders; other back problems (1 source) Sciatica, left side; Translations: [Sciatica, left side] Onset: 05-01-2025 Episodic Unclassified (7 sources) After discharge from TCU Unclassified (7 sources) New patient appointment/TCU TCM Unclassified (14 sources) Elevated rheumatoid factor; Translations: [R76.8 - Other specified abnormal immunological findings in serum] Unclassified (1 source) pt has time Unclassified (1 source) in two weeks Unclassified (1 source) Pain in other specified joint; Translations: [Pain in other specified joint] Onset: 04-11-2025 Past or Other Problems Problem Classification Problem Date Documented Da te Episodic/Chronic Fever of unknown origin (20 sources) Fever; Translations: [Fever, unspecified] Onset: 02-02-2025 02-03-2025 Episodic Other connective tissue disease (1 source) Other specified soft tissue disorders; Translations: [Other specified soft tissue disorders] Onset: 02-14-2025 Episodic Other lower respiratory disease (1 source) Shortness of breath; Translations: [Shortness of breath] Onset: 03-20-2025 Episodic Other lower respiratory disease (1 source) Hypoxemia; Translations: [Hypoxemia] Onset: 02-02-2025 Episodic Pulmonary heart disease (20 sources) Pulmonary embolism; Translations: [Other pulmonary embolism without acute cor pulmonale] Onset: 02-02-2025 01-24-2025 Episodic Unclassified (4 sources) Patient encounter status; Translations: [Encounter to establish care] Unclassified (2 sources) Onset: 10-16-2024 Resolved: 10-18-2024 10-16-2024 Results Test Name Value Interpretation Reference Range Facility Basic Metabolic Profile (BMP )on 06-19-2025 BUN Normal 03-17 [facility] Comment on above: Result Comment: Canc elled via OM: Order cancelled - Patient discharged Performed By: #### L 500.2500, L100.0100 ####[facility] [id number] [place], [address] BUN/CRE Normal 10-20 [facility] Comment on above: Result Comment: Canc elled via OM: Order cancelled - Patient discharged Performed By: #### L 500.2500, L100.0100 ####[facility] [id number] [place], [address] Calcium Normal 7.6-11.0 [facility] Comment on above: Result Comment: Canc elled via OM: Order cancelled - Patient discharged Performed By: #### L 500.2500, L100.0100 ####[facility] [address] [place], [address] CL Normal 98-108 [facility] Comment on above: Result Comment: Canc elled via OM: Order cancelled - Patient discharged Performed By: #### L 500.2500, L100.0100 ####[facility] [address] [place], [address] CO2 Normal 21.0-32.0 [facility] Comment on above: Result Comment: Canc elled via OM: Order cancelled - Patient discharged Performed By: #### L 500.2500, L100.0100 ####[facility] [address] [place], [address] CREAT,SERUM Normal 0.70-1.20 [facility] Comment on above: Result Comment: Canc elled via OM: Order cancelled - Patient discharged Performed By: #### L 500.2500, L100.0100 ####[facility] [address] [place], [address] eGFR Normal >60 [facility] Comment on above: Result Comment: Canc elled via OM: Order cancelled - Patient discharged Performed By: #### L 500.2500, L100.0100 ####[facility] [address] [place], [address] GAP Normal 5-15 [facility] Comment on above: Result Comment: Canc elled via OM: Order cancelled - Patient discharged Performed By: #### L 500.2500, L100.0100 ####[facility] [address] [place], [address] GLU Normal 70-99 [facility] Comment on above: Result Comment: Canc elled via OM: Order cancelled - Patient discharged Performed By: #### L 500.2500, L100.0100 ####[facility] [address] [place], [address] Potassium Normal 3.3-5.1 [facility] Comment on above: Result Comment: Canc elled via OM: Order cancelled - Patient discharged Performed By: #### L 500.2500, L100.0100 ####[facility] [address] [place], [address] Basic Metabolic Profile (BMP) Normal 133-145 [facility] Comment on above: Result Comment: Canc elled via OM: Order cancelled - Patient discharged Performed By: #### L 500.2500, L100.0100 ####[facility] [address] [place], [address] CBC W/Diff, Automatedon 07-2 Absolute Neut Normal 2.0-7.7 [facility] Comment on above: Result Comment: Canc elled via OM: Order cancelled - Patient discharged Performed By: #### L 500.2500, L100.0100 ####[facility] [address] [place], [address] HCT Normal 37-47 [facility] Comment on above: Result Comment: Canc elled via OM: Order cancelled - Patient discharged Performed By: #### L 500.2500, L100.0100 ####[facility] [address] [place], [address] HGB Normal 12.0-15.0 [facility] Comment on above: Result Comment: Canc elled via OM: Order cancelled - Patient discharged Performed By: #### L 500.2500, L100.0100 ####[facility] [address] [place], [address] MCH Normal 27.0-32.0 [facility] Comment on above: Result Comment: Canc elled via OM: Order cancelled - Patient discharged Performed By: #### L 500.2500, L100.0100 ####[facility] [address] [place], [address] MCHC Normal 32-36 [facility] Comment on above: Result Comment: Canc elled via OM: Order cancelled - Patient discharged Performed By: #### L 500.2500, L100.0100 ####[facility] [address] [place], [address] MCV Normal 81-99 [facility] Comment on above: Result Comment: Canc elled via OM: Order cancelled - Patient discharged Performed By: #### L 500.2500, L100.0100 ####[facility] [address] [place], [address] NEUT% Normal 47-70 [facility] Comment on above: Result Comment: Canc elled via OM: Order cancelled - Patient discharged Performed By: #### L 500.2500, L100.0100 ####[facility] [address] [place], [address] PLT Normal 150-450 [facility] Comment on above: Result Comment: Canc elled via OM: Order cancelled - Patient discharged Performed By: #### L 500.2500, L100.0100 ####[facility] [address] [place], [address] RBC Normal 4.2-5.4 [facility] Comment on above: Result Comment: Canc elled via OM: Order cancelled - Patient discharged Performed By: #### L 500.2500, L100.0100 ####[facility] [address] [place], [address] RDW CV Normal 11.6-14.6 [facility] Comment on above: Result Comment: Canc elled via OM: Order cancelled - Patient discharged Performed By: #### L 500.2500, L100.0100 ####[facility] [address] [place], [address] RDW SD Normal 35.1-43.9 [facility] Comment on above: Result Comment: Canc elled via OM: Order cancelled - Patient discharged Performed By: #### L 500.2500, L100.0100 ####[facility] [address] [place], [address] WBC Normal 4.4-11.0 [facility] Comment on above: Result Comment: Canc elled via OM: Order cancelled - Patient discharged Performed By: #### L 500.2500, L100.0100 ####[facility] [address] [place], [address] Basic Metabolic Profile (BMP )on 06-12-2025 BUN Normal 4-19 [facility] Comment on above: Result Comment: Canc elled via OM: Order cancelled - Patient discharged Performed By: #### L 100.0100, L500.2500 ####[facility] [address] [place], [address] BUN/CRE Normal 10-20 [facility] Comment on above: Result Comment: Canc elled via OM: Order cancelled - Patient discharged Performed By: #### L 100.0100, L500.2500 ####[facility] [address] [place], [address] Calcium Normal 7.6-11.0 [facility] Comment on above: Result Comment: Canc elled via OM: Order cancelled - Patient discharged Performed By: #### L 100.0100, L500.2500 ####[facility] [address] [place], [address] CL Normal 98-108 [facility] Comment on above: Result Comment: Canc elled via OM: Order cancelled - Patient discharged Performed By: #### L 100.0100, L500.2500 ####[facility] [address] [place], [address] CO2 Normal 21.0-32.0 [facility] Comment on above: Result Comment: Canc elled via OM: Order cancelled - Patient discharged Performed By: #### L 100.0100, L500.2500 ####[facility] [address] [place], [address] CREAT,SERUM Normal 0.70-1.20 [facility] Comment on above: Result Comment: Canc elled via OM: Order cancelled - Patient discharged Performed By: #### L 100.0100, L500.2500 ####[facility] [address] [place], [address] eGFR Normal >60 [facility] Comment on above: Result Comment: Canc elled via OM: Order cancelled - Patient discharged Performed By: #### L 100.0100, L500.2500 ####[facility] [address] [place], [address] GAP Normal 5-15 [facility] Comment on above: Result Comment: Canc elled via OM: Order cancelled - Patient discharged Performed By: #### L 100.0100, L500.2500 ####[facility] [address] [place], [address] GLU Normal 70-99 [facility] Comment on above: Result Comment: Canc elled via OM: Order cancelled - Patient discharged Performed By: #### L 100.0100, L500.2500 ####[facility] [address] [place], [address] Potassium Normal 3.3-5.1 [facility] Comment on above: Result Comment: Canc elled via OM: Order cancelled - Patient discharged Performed By: #### L 100.0100, L500.2500 ####[facility] [address] [place], [address] Basic Metabolic Profile (BMP) Normal 133-145 [facility] Comment on above: Result Comment: Canc elled via OM: Order cancelled - Patient discharged Performed By: #### L 100.0100, L500.2500 ####[facility] [address] [place], [address] CBC W/Diff, Automatedon 07-1 -2024 Absolute Neut Normal 2.0-7.7 [facility] Comment on above: Result Comment: Canc elled via OM: Order cancelled - Patient discharged Performed By: #### L 100.0100, L500.2500 ####[facility] [address] [place], [address] HCT Normal 37-47 [facility] Comment on above: Result Comment: Canc elled via OM: Order cancelled - Patient discharged Performed By: #### L 100.0100, L500.2500 ####[facility] [address] [place], [address] HGB Normal 12.0-15.0 [facility] Comment on above: Result Comment: Canc elled via OM: Order cancelled - Patient discharged Performed By: #### L 100.0100, L500.2500 ####[facility] [address] [place], [address] MCH Normal 27.0-32.0 [facility] Comment on above: Result Comment: Canc elled via OM: Order cancelled - Patient discharged Performed By: #### L 100.0100, L500.2500 ####[facility] [address] [place], [address] MCHC Normal 32-36 [facility] Comment on above: Result Comment: Canc elled via OM: Order cancelled - Patient discharged Performed By: #### L 100.0100, L500.2500 ####[facility] [address] [place], [address] MCV Normal 81-99 [facility] Comment on above: Result Comment: Canc elled via OM: Order cancelled - Patient discharged Performed By: #### L 100.0100, L500.2500 ####[facility] [address] [place], [address] NEUT% Normal 47-70 [facility] Comment on above: Result Comment: Canc elled via OM: Order cancelled - Patient discharged Performed By: #### L 100.0100, L500.2500 ####[facility] [address] [place], [address] PLT Normal 150-450 [facility] Comment on above: Result Comment: Canc elled via OM: Order cancelled - Patient discharged Performed By: #### L 100.0100, L500.2500 ####[facility] [address] [place], [address] RBC Normal 4.2-5.4 [facility] Comment on above: Result Comment: Canc elled via OM: Order cancelled - Patient discharged Performed By: #### L 100.0100, L500.2500 ####[facility] [address] [place], [address] RDW CV Normal 11.6-14.6 [facility] Comment on above: Result Comment: Canc elled via OM: Order cancelled - Patient discharged Performed By: #### L 100.0100, L500.2500 ####[facility] [address] [place], [address] RDW SD Normal 35.1-43.9 [facility] Comment on above: Result Comment: Canc elled via OM: Order cancelled - Patient discharged Performed By: #### L 100.0100, L500.2500 ####[facility] [address] [place], [address] WBC Normal 4.4-11.0 [facility] Comment on above: Result Comment: Canc elled via OM: Order cancelled - Patient discharged Performed By: #### L 100.0100, L500.2500 ####[facility] [address] [place], [address] Basic Metabolic Profile (BMP )on 06-05-2025 BUN Normal 4-19 [facility] Comment on above: Result Comment: Canc elled via OM: Order cancelled - Patient discharged Performed By: #### L 500.2500, L100.0100 ####[facility] [address] [place], [address] BUN/CRE Normal 10-20 [facility] Comment on above: Result Comment: Canc elled via OM: Order cancelled - Patient discharged Performed By: #### L 500.2500, L100.0100 ####[facility] [address] [place], [address] Calcium Normal 7.6-11.0 [facility] Comment on above: Result Comment: Canc elled via OM: Order cancelled - Patient discharged Performed By: #### L 500.2500, L100.0100 ####[facility] [address] [place], [address] CL Normal 98-108 [facility] Comment on above: Result Comment: Canc elled via OM: Order cancelled - Patient discharged Performed By: #### L 500.2500, L100.0100 ####[facility] [address] [place], [address] CO2 Normal 21.0-32.0 [facility] Comment on above: Result Comment: Canc elled via OM: Order cancelled - Patient discharged Performed By: #### L 500.2500, L100.0100 ####[facility] [address] [place], [address] CREAT,SERUM Normal 0.70-1.20 [facility] Comment on above: Result Comment: Canc elled via OM: Order cancelled - Patient discharged Performed By: #### L 500.2500, L100.0100 ####[facility] [address] [place], [address] eGFR Normal >60 [facility] Comment on above: Result Comment: Canc elled via OM: Order cancelled - Patient discharged Performed By: #### L 500.2500, L100.0100 ####[facility] [address] [place], [address] GAP Normal 5-15 [facility] Comment on above: Result Comment: Canc elled via OM: Order cancelled - Patient discharged Performed By: #### L 500.2500, L100.0100 ####[facility] [address] [place], [address] GLU Normal 70-99 [facility] Comment on above: Result Comment: Canc elled via OM: Order cancelled - Patient discharged Performed By: #### L 500.2500, L100.0100 ####[facility] [address] [place], [address] Potassium Normal 3.3-5.1 [facility] Comment on above: Result Comment: Canc elled via OM: Order cancelled - Patient discharged Performed By: #### L 500.2500, L100.0100 ####[facility] [address] [place], [address] Basic Metabolic Profile (BMP) Normal 133-145 [facility] Comment on above: Result Comment: Canc elled via OM: Order cancelled - Patient discharged Performed By: #### L 500.2500, L100.0100 ####[facility] [address] [place], [address] CBC W/Diff, Automatedon 07-0 8-2024 Absolute Neut Normal 2.0-7.7 [facility] Comment on above: Result Comment: Canc elled via OM: Order cancelled - Patient discharged Performed By: #### L 500.2500, L100.0100 ####[facility] [address] [place], [address] HCT Normal 37-47 [facility] Comment on above: Result Comment: Canc elled via OM: Order cancelled - Patient discharged Performed By: #### L 500.2500, L100.0100 ####[facility] [address] [place], [address] HGB Normal 12.0-15.0 [facility] Comment on above: Result Comment: Canc elled via OM: Order cancelled - Patient discharged Performed By: #### L 500.2500, L100.0100 ####[facility] [address] [place], [address] MCH Normal 27.0-32.0 [facility] Comment on above: Result Comment: Canc elled via OM: Order cancelled - Patient discharged Performed By: #### L 500.2500, L100.0100 ####[facility] [address] [place], [address] MCHC Normal 32-36 [facility] Comment on above: Result Comment: Canc elled via OM: Order cancelled - Patient discharged Performed By: #### L 500.2500, L100.0100 ####[facility] [address] [place], [address] MCV Normal 81-99 [facility] Comment on above: Result Comment: Canc elled via OM: Order cancelled - Patient discharged Performed By: #### L 500.2500, L100.0100 ####[facility] [address] [place], [address] NEUT% Normal 47-70 [facility] Comment on above: Result Comment: Canc elled via OM: Order cancelled - Patient discharged Performed By: #### L 500.2500, L100.0100 ####[facility] [address] [place], [address] PLT Normal 150-450 [facility] Comment on above: Result Comment: Canc elled via OM: Order cancelled - Patient discharged Performed By: #### L 500.2500, L100.0100 ####[facility] [address] [place], [address] RBC Normal 4.2-5.4 [facility] Comment on above: Result Comment: Canc elled via OM: Order cancelled - Patient discharged Performed By: #### L 500.2500, L100.0100 ####[facility] [address] [place], [address] RDW CV Normal 11.6-14.6 [facility] Comment on above: Result Comment: Canc elled via OM: Order cancelled - Patient discharged Performed By: #### L 500.2500, L100.0100 ####[facility] [address] [place], [address] RDW SD Normal 35.1-43.9 [facility] Comment on above: Result Comment: Canc elled via OM: Order cancelled - Patient discharged Performed By: #### L 500.2500, L100.0100 ####[facility] [address] [place], [address] WBC Normal 4.4-11.0 [facility] Comment on above: Result Comment: Canc elled via OM: Order cancelled - Patient discharged Performed By: #### L 500.2500, L100.0100 ####[facility] [address] [place], [address] Basic Metabolic Profile (BMP )on 05-29-2025 BUN Normal 4-19 [facility] Comment on above: Result Comment: Canc elled via OM: Order cancelled - Patient discharged Performed By: #### L 100.0100, L500.2500 ####[facility] [address] [place], [address] BUN/CRE Normal 10-20 [facility] Comment on above: Result Comment: Canc elled via OM: Order cancelled - Patient discharged Performed By: #### L 100.0100, L500.2500 ####[facility] [address] [place], [address] Calcium Normal 7.6-11.0 [facility] Comment on above: Result Comment: Canc elled via OM: Order cancelled - Patient discharged Performed By: #### L 100.0100, L500.2500 ####[facility] [address] [place], [address] CL Normal 98-108 [facility] Comment on above: Result Comment: Canc elled via OM: Order cancelled - Patient discharged Performed By: #### L 100.0100, L500.2500 ####[facility] [address] [place], [address] CO2 Normal 21.0-32.0 [facility] Comment on above: Result Comment: Canc elled via OM: Order cancelled - Patient discharged Performed By: #### L 100.0100, L500.2500 ####[facility] [address] [place], [address] CREAT,SERUM Normal 0.70-1.20 [facility] Comment on above: Result Comment: Canc elled via OM: Order cancelled - Patient discharged Performed By: #### L 100.0100, L500.2500 ####[facility] [address] [place], [address] eGFR Normal >60 [facility] Comment on above: Result Comment: Canc elled via OM: Order cancelled - Patient discharged Performed By: #### L 100.0100, L500.2500 ####[facility] [address] [place], [address] GAP Normal 5-15 [facility] Comment on above: Result Comment: Canc elled via OM: Order cancelled - Patient discharged Performed By: #### L 100.0100, L500.2500 ####[facility] [address] [place], [address] GLU Normal 70-99 [facility] Comment on above: Result Comment: Canc elled via OM: Order cancelled - Patient discharged Performed By: #### L 100.0100, L500.2500 ####[facility] [address] [place], [address] Potassium Normal 3.3-5.1 [facility] Comment on above: Result Comment: Canc elled via OM: Order cancelled - Patient discharged Performed By: #### L 100.0100, L500.2500 ####[facility] [address] [place], [address] Basic Metabolic Profile (BMP) Normal 133-145 [facility] Comment on above: Result Comment: Canc elled via OM: Order cancelled - Patient discharged Performed By: #### L 100.0100, L500.2500 ####[facility] [address] [place], [address] CBC W/Diff, Automatedon 07-0 Absolute Neut Normal 2.0-7.7 [facility] Comment on above: Result Comment: Canc elled via OM: Order cancelled - Patient discharged Performed By: #### L 100.0100, L500.2500 ####[facility] [address] [place], [address] HCT Normal 37-47 [facility] Comment on above: Result Comment: Canc elled via OM: Order cancelled - Patient discharged Performed By: #### L 100.0100, L500.2500 ####[facility] [address] [place], [address] HGB Normal 12.0-15.0 [facility] Comment on above: Result Comment: Canc elled via OM: Order cancelled - Patient discharged Performed By: #### L 100.0100, L500.2500 ####[facility] [address] [place], [address] MCH Normal 27.0-32.0 [facility] Comment on above: Result Comment: Canc elled via OM: Order cancelled - Patient discharged Performed By: #### L 100.0100, L500.2500 ####[facility] [address] [place], [address] MCHC Normal 32-36 [facility] Comment on above: Result Comment: Canc elled via OM: Order cancelled - Patient discharged Performed By: #### L 100.0100, L500.2500 ####[facility] [address] [place], [address] MCV Normal 81-99 [facility] Comment on above: Result Comment: Canc elled via OM: Order cancelled - Patient discharged Performed By: #### L 100.0100, L500.2500 ####[facility] [address] [place], [address] NEUT% Normal 47-70 [facility] Comment on above: Result Comment: Canc elled via OM: Order cancelled - Patient discharged Performed By: #### L 100.0100, L500.2500 ####[facility] [address] [place], [address] PLT Normal 150-450 [facility] Comment on above: Result Comment: Canc elled via OM: Order cancelled - Patient discharged Performed By: #### L 100.0100, L500.2500 ####[facility] [address] [place], [address] RBC Normal 4.2-5.4 [facility] Comment on above: Result Comment: Canc elled via OM: Order cancelled - Patient discharged Performed By: #### L 100.0100, L500.2500 ####[facility] [address] [place], [address] RDW CV Normal 11.6-14.6 [facility] Comment on above: Result Comment: Canc elled via OM: Order cancelled - Patient discharged Performed By: #### L 100.0100, L500.2500 ####[facility] [address] [place], [address] RDW SD Normal 35.1-43.9 [facility] Comment on above: Result Comment: Canc elled via OM: Order cancelled - Patient discharged Performed By: #### L 100.0100, L500.2500 ####[facility] [address] [place], [address] WBC Normal 4.4-11.0 [facility] Comment on above: Result Comment: Canc elled via OM: Order cancelled - Patient discharged Performed By: #### L 100.0100, L500.2500 ####[facility] [address] [place], [address] Absolute lymphocyte countOrd ered By: Scott Mcdowell on 05-22-2025 Lymphocytes Auto (Unsp spec) [#/Vol] 1.34 10*3/uL 0.83-4.51 [facility] Absolute neutrophil countOrd ered By: Scott Mcdowell on 05-22-2025 Neutrophils (Bld) [#/Vol] 4.6 10*3/uL 2.0-7.7 [facility] Anion gap in Serum or Plasma Ordered By: Scott Mcdowell on 05-22-2025 Anion gap [Moles/Vol] 8 mmol/L 5-15 [facility] Automated lymphocyte count a s percentage of total leukocytesOrdered By: Scott Mcdowell on 05-22-2025 Lymphocytes/100 WBC Auto (Unsp spec) 19.0 % 19-41 [facility] BUN/creatinine ratioOrdered By: Scott Jeremias on 05-22-2025 Urea nitrogen/Creatinine [Mass ratio] 17.9 mg/mg - [facility] Basic Metabolic Profile (BMP )on 05-22-2025 BUN/CRE 17.9 RATIO Normal - [facility] Comment on above: Performed By: #### L 500.2500, L100.0100 ####[facility] [address] [place], [address] Calcium [Mass/Vol] 9.7 mg/dL Normal 7.6-11.0 [facility] Comment on above: Performed By: #### L 500.2500, L100.0100 ####[facility] [address] [place], [address] Chloride [Moles/Vol] 103 mmol/L Normal 98-108 [facility] Comment on above: Performed By: #### L 500.2500, L100.0100 ####[facility] [address] [place], [address] CO2 [Moles/Vol] 28.1 mmol/L Normal 21.0-32.0 [facility] Comment on above: Performed By: #### L 500.2500, L100.0100 ####[facility] [address] [place], [address] Creatinine [Mass/Vol] 0.57 mg/dL Low 0.70-1.20 [facility] Comment on above: Performed By: #### L 500.2500, L100.0100 ####[facility] [address] [place], [address] ECRCL 58.62 ml/min Normal 50-250 [facility] Comment on above: Performed By: #### L 500.2500, L100.0100 ####[facility] [address] [place], [address] GAP 8 Normal 5-15 [facility] Comment on above: Performed By: #### L 500.2500, L100.0100 ####[facility] [address] [place], [address] GFR/1.73 sq M.predicted among non-blacks MDRD (S/P/Bld) [Vol rate/Area] 97 mL/min/{1.73_m2} Normal >60 [facility] Comment on above: Result Comment: mL/m in/1.73m2 CKD-EPI Creatinine Equation (2020) Performed By: #### L 500.2500, L100.0100 ####[facility] [address] [place], [address] Glucose [Mass/Vol] 97 mg/dL Normal 70-99 [facility] Comment on above: Performed By: #### L 500.2500, L100.0100 ####[facility] [address] [place], [address] Potassium [Moles/Vol] 4.3 mmol/L Normal 3.3-5.1 [facility] Comment on above: Performed By: #### L 500.2500, L100.0100 ####[facility] [address] [place], [address] Sodium [Moles/Vol] 140 mmol/L Normal 133-145 [facility] Comment on above: Performed By: #### L 500.2500, L100.0100 ####[facility] [address] [place], [address] Urea nitrogen [Mass/Vol] 10 mg/dL Normal 4-19 [facility] Comment on above: Performed By: #### L 500.2500, L100.0100 ####[facility] [address] [place], [address] Basophil percentageOrdered B y: Scott Mcdowell on 06-24-2025 Basophils/100 WBC (Bld) 1.0 % 0-[address] [facility] CBC W/Diff, Automatedon 06-2 -2024 Absolute Lymph 1.34 X10 3/uL Normal 0.83-4.51 [facility] Comment on above: Performed By: #### L 500.2500, L100.0100 ####[facility] [address] [place], [address] Absolute Neut 4.6 X10 3/uL Normal 2.0-7.7 [facility] Comment on above: Performed By: #### L 500.2500, L100.0100 ####[facility] [address] [place], [address] Basophils/100 WBC (Bld) 1.0 % Normal 0-[address] [facility] Comment on above: Performed By: #### L 500.2500, L100.0100 ####[facility] [address] [place], [address] Eosinophils/100 WBC (Bld) 4.5 % Normal 0-5 [facility] Comment on above: Performed By: #### L 500.2500, L100.0100 ####[facility] [address] [place], [address] Erythrocyte distribution width (RBC) [Ratio] 14.6 % Normal 11.6-14.6 [facility] Comment on above: Performed By: #### L 500.2500, L100.0100 ####[facility] [address] [place], [address] Hematocrit (Bld) [Volume fraction] 31.1 % Low 37-47 [facility] Comment on above: Performed By: #### L 500.2500, L100.0100 ####[facility] [address] [place], [address] Hemoglobin (Bld) [Mass/Vol] 10.1 g/dL Low 12.0-15.0 [facility] Comment on above: Performed By: #### L 500.2500, L100.0100 ####[facility] [address] [place], [address] IG% 0.300 Normal 0.0-0.9 [facility] Comment on above: Result Comment: IG% - Immature Granulocytes (promyelocytes, myelocytes andmetamyelocytes) > 1% indicates that a LEFT SHIFT is Present. Performed By: #### L 500.2500, L100.0100 ####[facility] [address] [place], [address] Lymphocytes/100 WBC (Bld) 19.0 % Normal 19-41 [facility] Comment on above: Performed By: #### L 500.2500, L100.0100 ####[facility] [address] [place], [address] MCH (RBC) [Entitic mass] 28.5 pg Normal 27.0-32.0 [facility] Comment on above: Performed By: #### L 500.2500, L100.0100 ####[facility] [address] [place], [address] MCHC (RBC) [Mass/Vol] 32.5 g/dL Normal 32-36 [facility] Comment on above: Performed By: #### L 500.2500, L100.0100 ####[facility] [address] [place], [address] MCV (RBC) [Entitic vol] 87.6 fL Normal 81-[address] [facility] Comment on above: Performed By: #### L 500.2500, L100.0100 ####[facility] [address] [place], [address] Monocytes/100 WBC (Bld) 9.9 % Normal 0-[address] [facility] Comment on above: Performed By: #### L 500.2500, L100.0100 ####[facility] [address] [place], [address] Neutrophils/100 WBC (Bld) 65.3 % Normal 47-70 [facility] Comment on above: Performed By: #### L 500.2500, L100.0100 ####[facility] [address] [place], [address] Nucleated RBC (Bld) [#/Vol] 0 10*3/uL Normal 0-5 [facility] Comment on above: Performed By: #### L 500.2500, L100.0100 ####[facility] [address] [place], [address] Platelet mean volume (Bld) [Entitic vol] 9.3 fL Normal 6.2-12.0 [facility] Comment on above: Performed By: #### L 500.2500, L100.0100 ####[facility] [address] [place], [address] Platelets (Bld) [#/Vol] 429 10*3/uL Normal 150-450 [facility] Comment on above: Performed By: #### L 500.2500, L100.0100 ####[facility] [address] [place], [address] RBC (Bld) [#/Vol] 3.55 10*6/uL Low 4.2-5.4 [facility] Comment on above: Performed By: #### L 500.2500, L100.0100 ####[facility] [address] [place], [address] RDW SD 46.5 fl High 35.1-43.9 [facility] Comment on above: Performed By: #### L 500.2500, L100.0100 ####[facility] [address] [place], [address] WBC (Bld) [#/Vol] 7.1 10*3/uL Normal 4.4-11.0 [facility] Comment on above: Performed By: #### L 500.2500, L100.0100 ####[facility] [address] [place], [address] Carbon dioxide, total [Moles /volume] in Central venous bloodOrdered By: Scott Mcdowell on 05-22-2025 CO2 [Moles/Vol] 28.1 mmol/L 21.0-32.0 [facility] Chloride assayOrdered By: Kem Mcdowell on 05-22-2025 Chloride [Moles/Vol] 103 mmol/L 98-108 [facility] Eosinophil percentageOrdered By: Scott Mcdowell on 05-22-2025 Eosinophils/100 WBC (Bld) 4.5 % 0-5 [facility] Erythrocyte distribution wid th ratioOrdered By: Scott Mcdowell on 05-22-2025 Erythrocyte distribution width (RBC) [Ratio] 14.6 % 11.6-14.6 [facility] Erythrocyte distribution wid th standard deviationOrdered By: Scott Mcdowell on 05-22-2025 Erythrocyte distribution width (RBC) [Ratio] 46.5 fl High 35.1-43.9 [facility] Glomerular filtration rate ( GFR) estimation/1.73 sq m using serum, plasma, or whole bOrdered By: Scott Mcdowell on 05-22-2025 GFR/1.73 sq M.predicted among non-blacks MDRD (S/P/Bld) [Vol rate/Area] 97 mL/min/{1.73_m2} >60 [facility] Comment on above: mL/min/1.73m2 CKD-EP I Creatinine Equation (2020) Hematocrit Auto (Bld) [Volum e fraction]Ordered By: Scott Mcdowell 05-22-2025 Hematocrit (Bld) [Volume fraction] 31.1 % Low 37-47 [facility] Hemoglobin measurementOrdere d By: Scott Mcdowell on 05-22-2025 Hemoglobin (Bld) [Mass/Vol] 10.1 g/dL Low 12.0-15.0 [facility] Immature granulocytes/100 WB C Auto (Bld)Ordered By: Scott Mcdowell 05-22-2025 Immature granulocytes/100 WBC (Bld) 0.300 % 0.0-0.9 [facility] Comment on above: IG% - Immature Granu locytes (promyelocytes, myelocytes and metamyelocytes) > 1% indicates that a LEFT SHIFT is Present. MCV (mean corpuscular volume ) determinationOrdered By: Scott Mcdowell on 05-22-2025 MCV (RBC) [Entitic vol] 87.6 fL 81-99 [facility] Mean corpuscular hemoglobin (MCH) determinationOrdered By: Scott Mcdowell on 05-22-2025 MCH (RBC) [Entitic mass] 28.5 pg 27.0-32.0 [facility] Mean corpuscular hemoglobin concentration (MCHC) determinationOrdered By: Scott Mcdowell on 05-22-2025 MCHC (RBC) [Mass/Vol] 32.5 g/dL 32-36 [facility] Mean platelet volume determi nationOrdered By: Scott Mcdowell on 05-22-2025 Platelet mean volume (Bld) [Entitic vol] 9.3 fL 6.2-12.0 [facility] Monocyte percentageOrdered B y: Scott Mcdowell on 05-22-2025 Monocytes/100 WBC (Bld) 9.9 % 0-[address] [facility] Neutrophil percentageOrdered By: Scott Mcdowell on 05-22-2025 Neutrophils/100 WBC (Bld) 65.3 % 47-70 [facility] Nucleated red blood cell per centageOrdered By: Scott Mcdowell on 05-22-2025 Nucleated RBC/100 WBC (Bld) [Ratio] 0 % 0-5 [facility] Platelet countOrdered By: Kem Mcdowell on 05-22-2025 Platelets (Bld) [#/Vol] 429 10*3/uL 150-450 [facility] Potassium measurement (mass/ volume)Ordered By: Scott Mcdowell on 05-22-2025 Potassium (Unsp spec) [Mass/Vol] 4.3 mmol/L 3.3-5.1 [facility] RBC Auto (Bld) [#/Vol]Ordere d By: Scott Mcdowell on 05-22-2025 RBC (Bld) [#/Vol] 3.55 10*6/uL Low 4.2-5.4 [facility] Serum creatinine measurement (mass/volume)Ordered By: Scott Mcdowell on 05-22-2025 Creatinine [Mass/Vol] 0.57 mg/dL Low 0.70-1.20 [facility] Serum glucose measurement (m ass/volume)Ordered By: Scott Mcdowell on 05-22-2025 Glucose [Mass/Vol] 97 mg/dL 70-99 [facility] Serum or plasma calcium aury urement (mass/volume)Ordered By: Scott Mcdowell on 05-22-2025 Calcium [Mass/Vol] 9.7 mg/dL 7.6-11.0 [facility] Serum or plasma urea nitroge n measurement (mass/volume)Ordered By: Scott Mcdowell on 05-22-2025 Urea nitrogen [Mass/Vol] 10 mg/dL -19 [facility] Sodium levelOrdered By: Scott Mcdowell on 05-22-2025 Sodium [Moles/Vol] 140 mmol/L 133-145 [facility] White blood cell (WBC) count Ordered By: Scott Mcdowell on 05-22-2025 WBC (Bld) [#/Vol] 7.1 10*3/uL 4.4-11.0 [facility] Abdomen Single Viewon 2024 Abdomen Single View Normal [facility] HH, Hemoglobin AND Hematocri ton 05-17-2025 Hematocrit (Bld) [Volume fraction] 31.2 % Low 37-47 [facility] Comment on above: Performed By: #### L 100.0600 ####[facility] [address] [place], [place], [id number] Hemoglobin (Bld) [Mass/Vol] 10.3 g/dL Low 12.0-15.0 [facility] Comment on above: Performed By: #### L 100.0600 ####[facility] [address] [place], [address] Basic Metabolic Profile (BMP )on 05-15-2025 BUN/CRE 24.8 RATIO High 10-20 [facility] Comment on above: Performed By: #### L 100.0100, L500.2500 ####[facility] [address] [place], [address] Calcium [Mass/Vol] 9.3 mg/dL Normal 7.6-11.0 [facility] Comment on above: Performed By: #### L 100.0100, L500.2500 ####[facility] [address] [place], [address] Chloride [Moles/Vol] 103 mmol/L Normal 98-108 [facility] Comment on above: Performed By: #### L 100.0100, L500.2500 ####[facility] [address] [place], [address] CO2 [Moles/Vol] 26.2 mmol/L Normal 21.0-32.0 [facility] Comment on above: Performed By: #### L 100.0100, L500.2500 ####[facility] [address] [place], [address] Creatinine [Mass/Vol] 0.58 mg/dL Low 0.70-1.20 [facility] Comment on above: Performed By: #### L 100.0100, L500.2500 ####[facility] [address] [place], [address] ECRCL 58.57 ml/min Normal 50-250 [facility] Comment on above: Performed By: #### L 100.0100, L500.2500 ####[facility] [address] [place], [address] GAP 10 Normal 5-15 [facility] Comment on above: Performed By: #### L 100.0100, L500.2500 ####[facility] [address] [place], [address] GFR/1.73 sq M.predicted among non-blacks MDRD (S/P/Bld) [Vol rate/Area] 96 mL/min/{1.73_m2} Normal >60 [facility] Comment on above: Result Comment: mL/m in/1.73m2 CKD-EPI Creatinine Equation (2020) Performed By: #### L 100.0100, L500.2500 ####[facility] [address] [place], [address] Glucose [Mass/Vol] 104 mg/dL High 70-99 [facility] Comment on above: Performed By: #### L 100.0100, L500.2500 ####[facility] [address] [place], [address] Potassium [Moles/Vol] 4.4 mmol/L Normal 3.3-5.1 [facility] Comment on above: Performed By: #### L 100.0100, L500.2500 ####[facility] [address] [place], [address] Sodium [Moles/Vol] 139 mmol/L Normal 133-145 [facility] Comment on above: Performed By: #### L 100.0100, L500.2500 ####[facility] [address] [place], [address] Urea nitrogen [Mass/Vol] 14 mg/dL Normal 4-19 [facility] Comment on above: Performed By: #### L 100.0100, L500.2500 ####[facility] [address] [place], [address] CBC W/Diff, Automatedon - Absolute Lymph 1.22 X10 3/uL Normal 0.83-4.51 [facility] Comment on above: Performed By: #### L 100.0100, L500.2500 ####[facility] [address] [place], [address] Absolute Neut 4.7 X10 3/uL Normal 2.0-7.7 [facility] Comment on above: Performed By: #### L 100.0100, L500.2500 ####[facility] [address] [place], [address] Basophils/100 WBC (Bld) 0.7 % Normal 0-[address] [facility] Comment on above: Performed By: #### L 100.0100, L500.2500 ####[facility] [address] [place], [address] Eosinophils/100 WBC (Bld) 5.5 % High 0-5 [facility] Comment on above: Performed By: #### L 100.0100, L500.2500 ####[facility] [address] [place], [address] Erythrocyte distribution width (RBC) [Ratio] 14.4 % Normal 11.6-14.6 [facility] Comment on above: Performed By: #### L 100.0100, L500.2500 ####[facility] [address] [place], [address] Hematocrit (Bld) [Volume fraction] 28.5 % Low 37-47 [facility] Comment on above: Performed By: #### L 100.0100, L500.2500 ####[facility] [address] [place], [address] Hemoglobin (Bld) [Mass/Vol] 9.3 g/dL Low 12.0-15.0 [facility] Comment on above: Performed By: #### L 100.0100, L500.2500 ####[facility] [address] [place], [address] IG% 0.400 Normal 0.0-0.9 [facility] Comment on above: Result Comment: IG% - Immature Granulocytes (promyelocytes, myelocytes andmetamyelocytes) > 1% indicates that a LEFT SHIFT is Present. Performed By: #### L 100.0100, L500.2500 ####[facility] [address] [place], [address] Lymphocytes/100 WBC (Bld) 16.9 % Low 19-41 [facility] Comment on above: Performed By: #### L 100.0100, L500.2500 ####[facility] [address] [place], [address] MCH (RBC) [Entitic mass] 28.7 pg Normal 27.0-32.0 [facility] Comment on above: Performed By: #### L 100.0100, L500.2500 ####[facility] [address] [place], [address] MCHC (RBC) [Mass/Vol] 32.6 g/dL Normal 32-36 [facility] Comment on above: Performed By: #### L 100.0100, L500.2500 ####[facility] [address] [place], [address] MCV (RBC) [Entitic vol] 88.0 fL Normal 81-99 [facility] Comment on above: Performed By: #### L 100.0100, L500.2500 ####[facility] [address] [place], [address] Monocytes/100 WBC (Bld) 11.6 % High 0-[address] [facility] Comment on above: Performed By: #### L 100.0100, L500.2500 ####[facility] [address] [place], [address] Neutrophils/100 WBC (Bld) 64.9 % Normal 47-70 [facility] Comment on above: Performed By: #### L 100.0100, L500.2500 ####[facility] [address] [place], [address] Nucleated RBC (Bld) [#/Vol] 0 10*3/uL Normal 0-5 [facility] Comment on above: Performed By: #### L 100.0100, L500.2500 ####[facility] [address] [place], [address] Platelet mean volume (Bld) [Entitic vol] 10.0 fL Normal 6.2-12.0 [facility] Comment on above: Performed By: #### L 100.0100, L500.2500 ####[facility] [address] [place], [address] Platelets (Bld) [#/Vol] 255 10*3/uL Normal 150-450 [facility] Comment on above: Performed By: #### L 100.0100, L500.2500 ####[facility] [address] [place], [address] RBC (Bld) [#/Vol] 3.24 10*6/uL Low 4.2-5.4 [facility] Comment on above: Performed By: #### L 100.0100, L500.2500 ####[facility] [address] [place], [address] RDW SD 45.7 fl High 35.1-43.9 [facility] Comment on above: Performed By: #### L 100.0100, L500.2500 ####[facility] [address] [place], [address] WBC (Bld) [#/Vol] 7.2 10*3/uL Normal 4.4-11.0 [facility] Comment on above: Performed By: #### L 100.0100, L500.2500 ####[facility] [address] [place], [address] CBC-Complete Blood Cnt No Di ffon 05-14-2025 Erythrocyte distribution width (RBC) [Ratio] 14.3 % Normal 11.6-14.6 [facility] Comment on above: Performed By: #### L 100.0500 ####[facility] [address] [place], [address] Hematocrit (Bld) [Volume fraction] 28.7 % Low 37-47 [facility] Comment on above: Performed By: #### L 100.0500 ####[facility] [address] [place], [address] Hemoglobin (Bld) [Mass/Vol] 9.3 g/dL Low 12.0-15.0 [facility] Comment on above: Performed By: #### L 100.0500 ####[facility] [address] [place], [address] MCH (RBC) [Entitic mass] 28.7 pg Normal 27.0-32.0 [facility] Comment on above: Performed By: #### L 100.0500 ####[facility] [address] [place], [address] MCHC (RBC) [Mass/Vol] 32.4 g/dL Normal 32-36 [facility] Comment on above: Performed By: #### L 100.0500 ####[facility] [address] [place], [address] MCV (RBC) [Entitic vol] 88.6 fL Normal 81-[address] [facility] Comment on above: Performed By: #### L 100.0500 ####[facility] [address] [place], [address] Platelet mean volume (Bld) [Entitic vol] 10.3 fL Normal 6.2-12.0 [facility] Comment on above: Performed By: #### L 100.0500 ####[facility] [address] [place], [address] Platelets (Bld) [#/Vol] 220 10*3/uL Normal 150-450 [facility] Comment on above: Performed By: #### L 100.0500 ####[facility] [address] [place], [address] RBC (Bld) [#/Vol] 3.24 10*6/uL Low 4.2-5.4 [facility] Comment on above: Performed By: #### L 100.0500 ####[facility] [address] [place], [address] RDW SD 46.1 fl High 35.1-43.9 [facility] Comment on above: Performed By: #### L 100.0500 ####[facility] [address] [place], [address] WBC (Bld) [#/Vol] 8.0 10*3/uL Normal 4.4-11.0 [facility] Comment on above: Performed By: #### L 100.0500 ####[facility] [address] [place], [address] Erythrocyte distribution wid th ratioOrdered By: Andera Hawkins on 05-14-2025 Erythrocyte distribution width (RBC) [Ratio] 14.3 % 11.6-14.6 [facility] Erythrocyte distribution wid th standard deviationOrdered By: Andrea Hawkins on 05-14-2025 Erythrocyte distribution width (RBC) [Ratio] 46.1 fl High 35.1-43.9 [facility] Hematocrit Auto (Bld) [Volum e fraction]Ordered By: Andrea Hawkins on 05-14-2025 Hematocrit (Bld) [Volume fraction] 28.7 % Low 37-47 [facility] Hemoglobin measurementOrdere d By: Andrea Hawkins on 05-14-2025 Hemoglobin (Bld) [Mass/Vol] 9.3 g/dL Low 12.0-15.0 [facility] MCV (mean corpuscular volume ) determinationOrdered By: Andrea Hawkins on 05-14-2025 MCV (RBC) [Entitic vol] 88.6 fL 81-[address] [facility] Mean corpuscular hemoglobin (MCH) determinationOrdered By: Andrea Hawkins on 05-14-2025 MCH (RBC) [Entitic mass] 28.7 pg 27.0-32.0 [facility] Mean corpuscular hemoglobin concentration (MCHC) determinationOrdered By: Andrea Hawkins on 05-14-2025 MCHC (RBC) [Mass/Vol] 32.4 g/dL 32-36 [facility] Mean platelet volume determi nationOrdered By: Andrea Hawkins on 05-14-2025 Platelet mean volume (Bld) [Entitic vol] 10.3 fL 6.2-12.0 [facility] Platelet countOrdered By: Ra barbara Hawkins on 05-14-2025 Platelets (Bld) [#/Vol] 220 10*3/uL 150-450 [facility] RBC Auto (Bld) [#/Vol]Ordere d By: Andrea Hawkins on 05-14-2025 RBC (Bld) [#/Vol] 3.24 10*6/uL Low 4.2-5.4 [facility] White blood cell (WBC) count Ordered By: Andrea Hawkins on 05-14-2025 WBC (Bld) [#/Vol] 8.0 10*3/uL 4.4-11.0 [facility] Culture, Anaerobic Any Sourc yaya 05-13-2025 CUAN CULTURE INOCULATED F ROM REFRIGERATED SAMPLE 17 HOURS AFTER COLLECTION. AEROBIC AND ANAEROBIC ORGANISM RECOVERY MAY BE EFFECTED. [facility]. [facility] SUPRAPATELLAR POUCH, LEFT KNEE- COLLECTED IN OR No anaerobic bacteria isolated. Normal [facility] Comment on above: Performed By: #### M , 3000, ####[facility] [address] [place], [address] CUAN CULTURE INOCULATED F ROM REFRIGERATED SAMPLE 17 HOURS AFTER COLLECTION. AEROBIC AND ANAEROBIC ORGANISM RECOVERY MAY BE EFFECTED. ORDERS. @ UNK UNK 2) TIBIAL MEMBRANE, LEFT KNEE- COLLECTED IN OR. No anaerobic bacteria isolated. Normal [facility] Comment on above: Performed By: #### M 100.4001, M100.1999, M1.3000 ####[facility] [address] [place], [address] CUAN CULTURE INOCULATED F ROM REFRIGERATED SAMPLE 17 HOURS AFTER COLLECTION. AEROBIC AND ANAEROBIC ORGANISM RECOVERY MAY BE EFFECTED. ORDERS. [facility] UN[facility] 3) FEMORAL MEMBRANE, LEFT KNEE- COLLECTED IN OR. No anaerobic bacteria isolated. [facility] Comment on above: Performed By: #### M 100.3000, M100.4001, M100.1999 ####[facility] [address] [place], [address] Wound Cultureon 05-12-2025 WC CULTURE INOCULATED F ROM REFRIGERATED SAMPLE 17 HOURS AFTER COLLECTION. AEROBIC AND ANAEROBIC ORGANISM RECOVERY MAY BE EFFECTED. ORDERS. [facility]) SUPRAPATELLAR POUCH, LEFT KNEE- COLLECTED IN OR No growth aerobically. Normal [facility] Comment on above: Performed By: #### M 100.2000, M100.3000, M100.4001 ####[facility] [address] [place], [address] WC CULTURE INOCULATED F ROM REFRIGERATED SAMPLE 17 HOURS AFTER COLLECTION. AEROBIC AND ANAEROBIC ORGANISM RECOVERY MAY BE EFFECTED. ORDERS. [facility]) TIBIAL MEMBRANE, LEFT KNEE- COLLECTED IN OR. No growth aerobically. Normal [facility] Comment on above: Performed By: #### M 100.4001, M100.2000, M100.3000 ####[facility] [address] [place], [address] WC CULTURE INOCULATED F ROM REFRIGERATED SAMPLE 17 HOURS AFTER COLLECTION. AEROBIC AND ANAEROBIC ORGANISM RECOVERY MAY BE EFFECTED. ORDERS. [facility]) FEMORAL MEMBRANE, LEFT KNEE- COLLECTED IN OR. No growth aerobically. [facility] Comment on above: Performed By: #### M 100.3000, M100.4001, M1 ####[facility] [address] [place], [address] Anion gap in Serum or Plasma Ordered By: Bria Gan on 05-11-2025 Anion gap [Moles/Vol] 9 mmol/L 5-15 [facility] BUN/creatinine ratioOrdered By: Bria Gan on 05-11-2025 Urea nitrogen/Creatinine [Mass ratio] 18.1 mg/mg - [facility] Basic Metabolic Profile (BMP )on 05-11-2025 BUN/CRE 18.1 RATIO Normal - [facility] Comment on above: Performed By: #### L 100.0500, L500.2500 ####[facility] [address] [place], [address] Calcium [Mass/Vol] 8.9 mg/dL Normal 7.6-11.0 [facility] Comment on above: Performed By: #### L 100.0500, L500.2500 ####[facility] [address] [place], [address] Chloride [Moles/Vol] 105 mmol/L Normal 98-108 [facility] Comment on above: Performed By: #### L 100.0500, L500.2500 ####[facility] [address] [place], [address] CO2 [Moles/Vol] 25.2 mmol/L Normal 21.0-32.0 [facility] Comment on above: Performed By: #### L 100.0500, L500.2500 ####[facility] [address] [place], [address] Creatinine [Mass/Vol] 0.49 mg/dL Low 0.70-1.20 [facility] Comment on above: Performed By: #### L 100.0500, L500.2500 ####[facility] [address] [place], [address] ECRCL 58.10 ml/min Normal 50-250 [facility] Comment on above: Performed By: #### L 100.0500, L500.2500 ####[facility] [address] [place], [address] GAP 9 Normal -15 [facility] Comment on above: Performed By: #### L 100.0500, L500.2500 ####[facility] [address] [place], [address] GFR/1.73 sq M.predicted among non-blacks MDRD (S/P/Bld) [Vol rate/Area] 100 mL/min/{1.73_m2} Normal >60 [facility] Comment on above: Result Comment: mL/m in/1.73m2 CKD-EPI Creatinine Equation (2020) Performed By: #### L 100.0500, L500.2500 ####[facility] [address] [place], [address] Glucose [Mass/Vol] 103 mg/dL High 70-99 [facility] Comment on above: Performed By: #### L 100.0500, L500.2500 ####[facility] [address] [place], [address] Potassium [Moles/Vol] 3.7 mmol/L Normal 3.3-5.1 [facility] Comment on above: Performed By: #### L 100.0500, L500.2500 ####[facility] [address] [place], [address] Sodium [Moles/Vol] 140 mmol/L Normal 133-145 [facility] Comment on above: Performed By: #### L 100.0500, L500.2500 ####[facility] [address] [place], [address] Urea nitrogen [Mass/Vol] 9 mg/dL Normal 4-19 [facility] Comment on above: Performed By: #### L 100.0500, L500.2500 ####[facility] [address] [place], [address] CBC-Complete Blood Cnt No Di ffon 05-11-2025 Erythrocyte distribution width (RBC) [Ratio] 14.5 % Normal 11.6-14.6 [facility] Comment on above: Performed By: #### L 100.0500, L500.2500 ####[facility] [address] [place], [address] Hematocrit (Bld) [Volume fraction] 34.0 % Low 37-47 [facility] Comment on above: Performed By: #### L 100.0500, L500.2500 ####[facility] [address] [place], [address] Hemoglobin (Bld) [Mass/Vol] 10.8 g/dL Low 12.0-15.0 [facility] Comment on above: Performed By: #### L 100.0500, L500.2500 ####[facility] [address] [place], [address] MCH (RBC) [Entitic mass] 28.4 pg Normal 27.0-32.0 [facility] Comment on above: Performed By: #### L 100.0500, L500.2500 ####[facility] [address] [place], [address] MCHC (RBC) [Mass/Vol] 31.8 g/dL Low 32-36 [facility] Comment on above: Performed By: #### L 100.0500, L500.2500 ####[facility] [address] [place], [address] MCV (RBC) [Entitic vol] 89.5 fL Normal 81-[address] [facility] Comment on above: Performed By: #### L 100.0500, L500.2500 ####[facility] [address] [place], [address] Platelet mean volume (Bld) [Entitic vol] 10.8 fL Normal 6.2-12.0 [facility] Comment on above: Performed By: #### L 100.0500, L500.2500 ####[facility] [address] [place], [address] Platelets (Bld) [#/Vol] 182 10*3/uL Normal 150-450 [facility] Comment on above: Performed By: #### L 100.0500, L500.2500 ####[facility] [address] [place], [address] RBC (Bld) [#/Vol] 3.80 10*6/uL Low 4.2-5.4 [facility] Comment on above: Performed By: #### L 100.0500, L500.2500 ####[facility] [address] [place], [address] RDW SD 47.4 fl High 35.1-43.9 [facility] Comment on above: Performed By: #### L 100.0500, L500.2500 ####[facility] [address] [place], [address] WBC (Bld) [#/Vol] 7.4 10*3/uL Normal 4.4-11.0 [facility] Comment on above: Performed By: #### L 100.0500, L500.2500 ####[facility] [address] [place], [address] Carbon dioxide, total [Moles /volume] in Central venous bloodOrdered By: Bria Gan on 05-11-2025 CO2 [Moles/Vol] 25.2 mmol/L 21.0-32.0 [facility] Chloride assayOrdered By: St laz Gan on 05-11-2025 Chloride [Moles/Vol] 105 mmol/L 98-108 [facility] Glomerular filtration rate ( GFR) estimation/1.73 sq m using serum, plasma, or whole bOrdered By: Bria Gan on 05-11-2025 GFR/1.73 sq M.predicted among non-blacks MDRD (S/P/Bld) [Vol rate/Area] 100 mL/min/{1.73_m2} >60 [facility] Comment on above: mL/min/1.73m2 CKD-EP I Creatinine Equation (2020) Gram Stainon 05-11-2025 GS Normal [facility] Comment on above: Performed By: #### M 100.3000, M100.4001, ####[facility] [address] [place], [address] GS Normal [facility] Comment on above: Performed By: #### M 100.2000, M100.3000, M100.4000 ####[facility] [address] [place], [address] GS CULTURE INOCULATED F ROM REFRIGERATED SAMPLE 17 HOURS AFTER COLLECTION. AEROBIC AND ANAEROBIC ORGANISM RECOVERY MAY BE EFFECTED. ORDERS. @ UNK UNK 2) TIBIAL MEMBRANE, LEFT KNEE- COLLECTED IN OR. Gram Stain No organisms seen Normal [facility] Comment on above: Performed By: #### M 100.4001, .1999, ####[facility] [address] [place], [address] Potassium measurement (mass/ volume)Ordered By: Bria Gan on 05-11-2025 Potassium (Unsp spec) [Mass/Vol] 3.7 mmol/L 3.3-5.1 [facility] Serum creatinine measurement (mass/volume)Ordered By: Bria Gan on 05-11-2025 Creatinine [Mass/Vol] 0.49 mg/dL Low 0.70-1.20 [facility] Serum glucose measurement (m ass/volume)Ordered By: Bria Gan on 05-11-2025 Glucose [Mass/Vol] 103 mg/dL High 70-99 [facility] Serum or plasma calcium aury urement (mass/volume)Ordered By: Bria Gan on 05-11-2025 Calcium [Mass/Vol] 8.9 mg/dL 7.6-11.0 [facility] Serum or plasma urea nitroge n measurement (mass/volume)Ordered By: Bria Gan on 05-11-2025 Urea nitrogen [Mass/Vol] 9 mg/dL 4-19 [facility] Sodium levelOrdered By: Jose Gan on 05-11-2025 Sodium [Moles/Vol] 140 mmol/L 133-145 [facility] Venous Duplex US, Unilateral on 05-11-2025 Venous Duplex US, Unilateral Normal [facility] Anaerobic cultureOrdered By: Bria Gan on 05-10-2025 Bacteria identified Anaer cx Nom (Unsp spec) No anaerobic bacteria isolated. [facility] Bacteria identified Anaer cx Nom (Unsp spec) No anaerobic bacteria isolated. [facility] Bacteria identified Anaer cx Nom (Unsp spec) No anaerobic bacteria isolated. [facility] Bedside Glucoseon 05-10-2025 FINGERSTICK GLU 95 mg/dL Normal 74-106 [facility] Comment on above: Result Comment: MARISA DRAKE OF PATIENT CARE PER NURSING PROTOCOL Performed By: #### L 501.080 ####[facility] [address] [place], [place], [id number] [facility] deOrdered By: Bria Gan on 05-10-2025 Glucose [Mass/Vol] 95 mg/dL 74-106 [facility] Comment on above: MANAGEMENT OF PATIEN T CARE PER NURSING PROTOCOL Gram stainOrdered By: Bria Gan on 05-10-2025 Microscopic observation Gram stain Nom (Unsp spec) [facility] Microscopic observation Gram stain Nom (Unsp spec) [facility] Microscopic observation Gram stain Nom (Unsp spec) [facility] Knee 1 or 2 Viewson 05-10-20 25 Knee 1 or 2 Views Normal [facility] MR/POSTOP.ANEon 05-10-2025 MR/POSTOP.ANE Normal [facility] MR/[id number] 05-10-2025 MR/POSTOPAN2 Normal [facility] Operative Reporton Operative Report Normal [facility] MRSA/SAID NASAL SCREENon MRSA+SAID SCRN Reason for Exam: PRE OP MRSA MRSA Negative S. AUREUS S. aureus Negative Normal [facility] Comment on above: Performed By: #### M 100.651 ####[facility] [address] [place], [address] MRSA screenOrdered By: Dmitriy Gan on 04-27-2025 MRSA DNA MEI+probe Ql (Unsp spec) [facility] Magnesiumon 04-18-2025 Magnesium [Mass/Vol] 2.3 mg/dL High 1.5-2.2 [facility] Comment on above: Performed By: #### L 501.5200 ####[facility] [address] [place], [address] Magnesium measurement (mass/ volume)Ordered By: Richard Mo on 04-17-2025 Magnesium (Unsp spec) [Mass/Vol] 2.3 mg/dL High 1.5-2.2 [facility] Absolute lymphocyte countOrd ered By: Bria Gan on 04-16-2025 Lymphocytes Auto (Unsp spec) [#/Vol] 1.43 10*3/uL 0.83-4.51 [facility] Absolute neutrophil countOrd ered By: Bria Gan on 04-16-2025 Neutrophils (Bld) [#/Vol] 6.0 10*3/uL 2.0-7.7 [facility] Activated partial thrombopla stin time (aPTT) in platelet poor plasma by coagulation aOrdered By: Bria Gan on 04-16-2025 aPTT Coag (PPP) [Time] 27.1 s 24.1-36.2 [facility] Automated lymphocyte count a s percentage of total leukocytesOrdered By: Bria Gan on 04-16-2025 Lymphocytes/100 WBC Auto (Unsp spec) 16.9 % Low 19-41 [facility] Basophil percentageOrdered B y: Bria Gan on 04-16-2025 Basophils/100 WBC (Bld) 0.8 % 0-[address] [facility] Bilirubin, totalOrdered By: Bria Gan on 04-16-2025 Bilirubin [Mass/Vol] 0.21 mg/dL 0.00-1.30 [facility] CBC W/Diff, Automatedon 03-29 Absolute Lymph 1.43 X10 3/uL Normal 0.83-4.51 [facility] Comment on above: Performed By: #### L 500.4050, L300.3900, L100.0100, L300.4310 ####[facility] [address] [place], [address] Absolute Neut 6.0 X10 3/uL Normal 2.0-7.7 [facility] Comment on above: Performed By: #### L 500.4050, L300.3900, L100.0100, L300.4310 ####[facility] [address] [place], [address] Basophils/100 WBC (Bld) 0.8 % Normal 0-[address] [facility] Comment on above: Performed By: #### L 500.4050, L300.3900, L100.0100, L300.4310 ####[facility] [address] [place], [address] Eosinophils/100 WBC (Bld) 3.1 % Normal 0-5 [facility] Comment on above: Performed By: #### L 500.4050, L300.3900, L100.0100, L300.4310 ####[facility] [address] [place], [address] Erythrocyte distribution width (RBC) [Ratio] 14.2 % Normal 11.6-14.6 [facility] Comment on above: Performed By: #### L 500.4050, L300.3900, L100.0100, L300.4310 ####[facility] [address] [place], [address] Hematocrit (Bld) [Volume fraction] 41.3 % Normal 37-47 [facility] Comment on above: Performed By: #### L 500.4050, L300.3900, L100.0100, L300.4310 ####[facility] [address] [place], [address] Hemoglobin (Bld) [Mass/Vol] 13.2 g/dL Normal 12.0-15.0 [facility] Comment on above: Performed By: #### L 500.4050, L300.3900, L100.0100, L300.4310 ####[facility] [address] [place], [address] IG% 0.200 Normal 0.0-0.9 [facility] Comment on above: Result Comment: IG% - Immature Granulocytes (promyelocytes, myelocytes andmetamyelocytes) > 1% indicates that a LEFT SHIFT is Present. Performed By: #### L 500.4050, L300.3900, L100.0100, L300.4310 ####[facility] [address] [place], [address] Lymphocytes/100 WBC (Bld) 16.9 % Low 19-41 [facility] Comment on above: Performed By: #### L 500.4050, L300.3900, L100.0100, L300.4310 ####[facility] [address] [place], [address] MCH (RBC) [Entitic mass] 28.5 pg Normal 27.0-32.0 [facility] Comment on above: Performed By: #### L 500.4050, L300.3900, L100.0100, L300.4310 ####[facility] [address] [place], [address] MCHC (RBC) [Mass/Vol] 32.0 g/dL Normal 32-36 [facility] Comment on above: Performed By: #### L 500.4050, L300.3900, L100.0100, L300.4310 ####[facility] [address] [place], [address] MCV (RBC) [Entitic vol] 89.2 fL Normal 81-[address] [facility] Comment on above: Performed By: #### L 500.4050, L300.3900, L100.0100, L300.4310 ####[facility] [address] [place], [address] Monocytes/100 WBC (Bld) 8.4 % Normal 0-[address] [facility] Comment on above: Performed By: #### L 500.4050, L300.3900, L100.0100, L300.4310 ####[facility] [address] [place], [address] Neutrophils/100 WBC (Bld) 70.6 % High 47-70 [facility] Comment on above: Performed By: #### L 500.4050, L300.3900, L100.0100, L300.4310 ####[facility] [address] [place], [address] Nucleated RBC (Bld) [#/Vol] 0 10*3/uL Normal 0-5 [facility] Comment on above: Performed By: #### L 500.4050, L300.3900, L100.0100, L300.4310 ####[facility] [address] [place], [address] Platelet mean volume (Bld) [Entitic vol] 10.6 fL Normal 6.2-12.0 [facility] Comment on above: Performed By: #### L 500.4050, L300.3900, L100.0100, L300.4310 ####[facility] [address] [place], [address] Platelets (Bld) [#/Vol] 277 10*3/uL Normal 150-450 [facility] Comment on above: Performed By: #### L 500.4050, L300.3900, L100.0100, L300.4310 ####[facility] [address] [place], [address] RBC (Bld) [#/Vol] 4.63 10*6/uL Normal 4.2-5.4 [facility] Comment on above: Performed By: #### L 500.4050, L300.3900, L100.0100, L300.4310 ####[facility] [address] [place], [address] RDW SD 46.1 fl High 35.1-43.9 [facility] Comment on above: Performed By: #### L 500.4050, L300.3900, L100.0100, L300.4310 ####[facility] [address] [place], [address] WBC (Bld) [#/Vol] 8.5 10*3/uL Normal 4.4-11.0 [facility] Comment on above: Performed By: #### L 500.4050, L300.3900, L100.0100, L300.4310 ####[facility] [address] [place], [address] Comprehensive Metabolic Prof [facility] 04-16-2025 Albumin [Mass/Vol] 4.6 g/dL Normal 3.4-4.8 [facility] Comment on above: Performed By: #### L 500.4050, L300.3900, L100.0100, L300.4310 ####[facility] [address] [place], [address] Albumin/Globulin [Mass ratio] 1.2 {ratio} Normal 0.9-2.4 [facility] Comment on above: Performed By: #### L 500.4050, L300.3900, L100.0100, L300.4310 ####[facility] [address] [place], [address] ALK PHOS 109 U/L High 35-104 [facility] Comment on above: Performed By: #### L 500.4050, L300.3900, L100.0100, L300.4310 ####[facility] [address] [place], [address] ALT [Catalytic activity/Vol] 13 U/L Normal <=34 [facility] Comment on above: Performed By: #### L 500.4050, L300.3900, L100.0100, L300.4310 ####[facility] [address] [place], [address] AST [Catalytic activity/Vol] 21 U/L Normal <=31 [facility] Comment on above: Performed By: #### L 500.4050, L300.3900, L100.0100, L300.4310 ####[facility] [address] [place], [address] Bilirubin [Mass/Vol] 0.21 mg/dL Normal 0.00-1.30 [facility] Comment on above: Performed By: #### L 500.4050, L300.3900, L100.0100, L300.4310 ####[facility] [address] [place], [address] BUN/CRE 26.8 RATIO High 10-20 [facility] Comment on above: Performed By: #### L 500.4050, L300.3900, L100.0100, L300.4310 ####[facility] [address] [place], [address] Calcium [Mass/Vol] 10.3 mg/dL Normal 7.6-11.0 [facility] Comment on above: Performed By: #### L 500.4050, L300.3900, L100.0100, L300.4310 ####[facility] [address] [place], [address] Chloride [Moles/Vol] 103 mmol/L Normal 98-108 [facility] Comment on above: Performed By: #### L 500.4050, L300.3900, L100.0100, L300.4310 ####[facility] [address] [place], [address] CO2 [Moles/Vol] 27.1 mmol/L Normal 21.0-32.0 [facility] Comment on above: Performed By: #### L 500.4050, L300.3900, L100.0100, L300.4310 ####[facility] [address] [place], [address] Creatinine [Mass/Vol] 0.65 mg/dL Low 0.70-1.20 [facility] Comment on above: Performed By: #### L 500.4050, L300.3900, L100.0100, L300.4310 ####[facility] [address] [place], [address] GAP 11 Normal 5-15 [facility] Comment on above: Performed By: #### L 500.4050, L300.3900, L100.0100, L300.4310 ####[facility] [address] [place], [address] GFR/1.73 sq M.predicted among non-blacks MDRD (S/P/Bld) [Vol rate/Area] 93 mL/min/{1.73_m2} Normal >60 [facility] Comment on above: Result Comment: mL/m in/1.73m2 CKD-EPI Creatinine Equation (2020) Performed By: #### L 500.4050, L300.3900, L100.0100, L300.4310 ####[facility] [address] [place], [address] Globulin (S) [Mass/Vol] 3.7 g/dL Normal 2.2-4.2 [facility] Comment on above: Performed By: #### L 500.4050, L300.3900, L100.0100, L300.4310 ####[facility] [address] [place], [address] Glucose [Mass/Vol] 108 mg/dL High 70-99 [facility] Comment on above: Performed By: #### L 500.4050, L300.3900, L100.0100, L300.4310 ####[facility] [address] [place], [address] Potassium [Moles/Vol] 4.7 mmol/L Normal 3.3-5.1 [facility] Comment on above: Performed By: #### L 500.4050, L300.3900, L100.0100, L300.4310 ####[facility] [address] [place], [address] Sodium [Moles/Vol] 141 mmol/L Normal 133-145 [facility] Comment on above: Performed By: #### L 500.4050, L300.3900, L100.0100, L300.4310 ####[facility] [address] [place], [address] T PROT 8.3 g/dL Normal 5.9-8.4 [facility] Comment on above: Performed By: #### L 500.4050, L300.3900, L100.0100, L300.4310 ####[facility] [address] [place], [address] Urea nitrogen [Mass/Vol] 18 mg/dL Normal 4-19 [facility] Comment on above: Performed By: #### L 500.4050, L300.3900, L100.0100, L300.4310 ####[facility] [address] [place], [address] Eosinophil percentageOrdered By: Bria Gan on 04-16-2025 Eosinophils/100 WBC (Bld) 3.1 % 0-5 [facility] Immature granulocytes/100 WB C Auto (Bld)Ordered By: Bria Gan on 04-16-2025 Immature granulocytes/100 WBC (Bld) 0.200 % 0.0-0.9 [facility] Comment on above: IG% - Immature Granu locytes (promyelocytes, myelocytes and metamyelocytes) > 1% indicates that a LEFT SHIFT is Present. International normalized rat io (INR) calculationOrdered By: Bria Gan on 04-16-2025 INR Coag (Bld) [Relative time] 0.9 {INR} [facility] Laboratory - Chemistry and C hemistry - challengeOrdered By: Bria Gan on 04-16-2025 AST [Catalytic activity/Vol] 21 U/L <32 [facility] MR/PAT.ANEon 04-16-2025 MR/PAT.ANE Normal [facility] Monocyte percentageOrdered B y: Bria Gan on 04-16-2025 Monocytes/100 WBC (Bld) 8.4 % 0-[address] [facility] Neutrophil percentageOrdered By: Bria Gan on 04-16-2025 Neutrophils/100 WBC (Bld) 70.6 % High 47-70 [facility] No Panel InformationOrdered By: Bria Gan on 04-16-2025 21 U/L <32 [facility] Nucleated red blood cell per centageOrdered By: Bria Gan on 04-16-2025 Nucleated RBC/100 WBC (Bld) [Ratio] 0 % 0-5 [facility] Partial Thromboplast Timeon 04-16-2025 aPTT Coag (Bld) [Time] 27.1 s Normal 24.1-36.2 [facility] Comment on above: Performed By: #### L 500.4050, L300.3900, L100.0100, L300.4310 ####[facility] [address] [place], [address] Prothrombin Time w/INRon INR Coag (PPP) [Relative time] 0.9 {INR} Normal [facility] Comment on above: Performed By: #### L 500.4050, L300.3900, L100.0100, L300.4310 ####[facility] [address] [place], [address] PT Coag (PPP) [Time] 12.2 s Normal 11.7-14.9 [facility] Comment on above: Performed By: #### L 500.4050, L300.3900, L100.0100, L300.4310 ####[facility] [address] [place], [address] Prothrombin timeOrdered By: Bria Gan on 04-16-2025 PT Coag (PPP) [Time] 12.2 s 11.7-14.9 [facility] Serum globulin measurementOr dered By: Bria Gan on 04-16-2025 Globulin (S) [Mass/Vol] 3.7 g/dL 2.2-4.[address] [facility] Serum or plasma alanine lake otransferase (ALT) measurementOrdered By: Bria Gan on 04-16-2025 ALT [Catalytic activity/Vol] 13 U/L <35 [facility] Serum or plasma albumin aury urement (mass/volume)Ordered By: Bria Gan on 04-16-2025 Albumin [Mass/Vol] 4.6 g/dL 3.4-4.8 [facility] Serum or plasma albumin/glob ulin mass ratioOrdered By: Bria Gan on 04-16-2025 Albumin/Globulin [Mass ratio] 1.2 {ratio} 0.9-2.4 [facility] Serum or plasma alkaline frances sphatase measurementOrdered By: Bria Gan on 04-16-2025 ALP [Catalytic activity/Vol] 109 U/L High 35-104 [facility] Total proteinOrdered By: Jason Gan on 04-16-2025 Protein [Mass/Vol] 8.3 g/dL 5.9-8.4 [facility] L3410.9992on 04-11-2025 [facility] Misc. COMMENT Normal . [facility] Comment on above: Order Comment: [id number] 1ANTI RNA POLY3 RDL SERUM FRZ Result Comment: Test Ordered: [id number] Anti-RNA Polymerase III (RDL)Anti-RNA Polymerase III (RDL) <20 Units [facility] Reference Range: <20 Negative: <20 Weak Positive: 20 - 39 Moderate Positive: 40 - 80 Strong Positive: >80Performed at: [facility] [address] [id number] Director: Latrell Damon MD, Phone: [phone] at: [address] [id number] Director: Eros Rosales PhD, Phone: [phone] Performed By: #### L 100.0100, L3410.2000, L3100.9100, L101.9900, L3100.8408, L3100.5700, L3100.5800, L3100.5500, L3410.9992, L501.4405, L400.0001, L4600.0100, L501.1000, L505.7010, L501.1105, L501.4100, L3410.0700, L3100.5475, L501.6710 ####[facility] [address] [place], [place], [address] L3410.9992on 04-05-[address] [facility]. COMMENT Normal . [facility] Comment on above: Order Comment: [id number] 5ANTICENTROMERE AB SERUM FRZ Result Comment: Test Ordered: [id number] Anti-Centromere Ab by IFA(RDL)Anti-Centromere Ab by IFA(RDL) <1:40 [facility] Reference Range: <1:40Performed at: [facility] [address] [id number] Director: Latrell Damon MD, Phone: [phone] at: [address] [id number] Director: Eros Rosales PhD, Phone: [phone] Performed By: #### L 3410.9992 ####[facility] [address] [place], [address] ANTINUCLEAR ANTIBODIES DIREC Ton 04-03-2025 QUITA,DIRECT Negative Normal Negative [facility] Comment on above: Result Comment: Perf ormed at: [address] [id number] Director: Eros Rosales PhD, Phone: [phone] Performed By: #### L 100.0100, L3410.2000, L3100.9100, L101.9900, L3100.8408, L3100.5700, L3100.5800, L3100.5500, L3410.9992, L501.4405, L400.0001, L4600.0100, L501.1000, L505.7010, L501.1105, L501.4100, L3410.0700, L3100.5475, L501.6710 ####[facility] [address] [place], [address] Lopk-Fjqqwlvfmah-84 [facility] ANTISCLERODERM <0.2 Normal 0.0-0.9 [facility] Comment on above: Result Comment: AMENDED REPORT 04/03/25 1108 ANTISCLER previously reported as: Test not performed Performed By: #### L 100.0100, L3410.2000, L3100.9100, L101.9900, L3100.8408, L3100.5700, L3100.5800, L3100.5500, L3410.9992, L501.4405, L400.0001, L4600.0100, L501.1000, L505.7010, L501.1105, L501.4100, L3410.0700, L3100.5475, L501.6710 ####[facility] [address] [place], [address] Anti-dsDNA [facility] 04-03-2025 ANTI-DNA (DS)AB <1 Normal 0-9 [facility] Comment on above: Result Comment: Nega tive <5 Equivocal 5 - 9 Positive >9 Performed By: #### L 100.0100, L3410.2000, L3100.9100, L101.9900, L3100.8408, L3100.5700, L3100.5800, L3100.5500, L3410.9992, L501.4405, L400.0001, L4600.0100, L501.1000, L505.7010, L501.1105, L501.4100, L3410.0700, L3100.5475, L501.6710 ####[facility] [address] [place], [place], [address] Anticardiolipin IgA,G,Mon ANTICARDIO IgA > 150 High 0-11 [facility] Comment on above: Result Comment: Nega tive: <12 Indeterminate: 12 - 20 Low-Med Positive: >20 - 80 High Positive: >80 Performed By: #### L 100.0100, L3410.2000, L3100.9100, L101.9900, L3100.8408, L3100.5700, L3100.5800, L3100.5500, L3410.9992, L501.4405, L400.0001, L4600.0100, L501.1000, L505.7010, L501.1105, L501.4100, L3410.0700, L3100.5475, L501.6710 ####[facility] [address] [place], [place], [address] ANTICARDIO IgG 13 GPL U/mL Normal 0-14 [facility] Comment on above: Result Comment: Nega tive: <15 Indeterminate: 15 - 20 Low-Med Positive: >20 - 80 High Positive: >80 Performed By: #### L 100.0100, L3410.2000, L3100.9100, L101.9900, L3100.8408, L3100.5700, L3100.5800, L3100.5500, L3410.9992, L501.4405, L400.0001, L4600.0100, L501.1000, L505.7010, L501.1105, L501.4100, L3410.0700, L3100.5475, L501.6710 ####[facility] [address] [place], [place], [address] Anticardio.IgM 29 MPL U/mL High 0-12 [facility] Comment on above: Result Comment: Nega tive: <13 Indeterminate: 13 - 20 Low-Med Positive: >20 - 80 High Positive: >80 Performed By: #### L 100.0100, L3410.2000, L3100.9100, L101.9900, L3100.8408, L3100.5700, L3100.5800, L3100.5500, L3410.9992, L501.4405, L400.0001, L4600.0100, L501.1000, L505.7010, L501.1105, L501.4100, L3410.0700, L3100.5475, L501.6710 ####[facility] [address] [place], [place], [id number] Beta-2 Glycoprot IgG, A, 04-03-2025 B2 GLYCO I IGA <9 Normal 0-25 [facility] Comment on above: Result Comment: Resu lt Units: GPI IgA unitsThe reference interval reflects a 3SD or 99th percentileinterval, which is thought to represent a potentiallyclinically significant result in accordance with theInternational Consensus Statement on the classificationcriteria for definitive antiphospholipid syndrome (APS). JThromb Haem 2006;4:295-306. Performed By: #### L 100.0100, L3410.2000, L3100.9100, L101.9900, L3100.8408, L3100.5700, L3100.5800, L3100.5500, L3410.9992, L501.4405, L400.0001, L4600.0100, L501.1000, L505.7010, L501.1105, L501.4100, L3410.0700, L3100.5475, L501.6710 ####[facility] [address] [facility] [place], [place], [id number] B2 GLYCO I IGG <9 Normal 0-20 [facility] Comment on above: Result Comment: Resu lt Units: GPI IgG unitsThe reference interval reflects a 3SD or 99th percentileinterval, which is thought to represent a potentiallyclinically significant result in accordance with theInternational Consensus Statement on the classificationcriteria for definitive antiphospholipid syndrome (APS). JThromb Haem 2006;4:295-306. Performed By: #### L 100.0100, L3410.2000, L3100.9100, L101.9900, L3100.8408, L3100.5700, L3100.5800, L3100.5500, L3410.9992, L501.4405, L400.0001, L4600.0100, L501.1000, L505.7010, L501.1105, L501.4100, L3410.0700, L3100.5475, L501.6710 ####[facility] [address] [facility] [place], [place], [id number] B2 GLYCO I IGM <9 Normal 0-32 [facility] Comment on above: Result Comment: Resu lt Units: GPI IgM unitsThe reference interval reflects a 3SD or 99th percentileinterval, which is thought to represent a potentiallyclinically significant result in accordance with theInternational Consensus Statement on the classificationcriteria for definitive antiphospholipid syndrome (APS). JThromb Haem 2006;4:295-306. Performed By: #### L 100.0100, L3410.2000, L3100.9100, L101.9900, L3100.8408, L3100.5700, L3100.5800, L3100.5500, L3410.9992, L501.4405, L400.0001, L4600.0100, L501.1000, L505.7010, L501.1105, L501.4100, L3410.0700, L3100.5475, L501.6710 ####[facility] [address] [place], [address] CCP IgG Antibodieson 025 CCP IgG Ab. 9 units Normal 0-19 [facility] Comment on above: Result Comment: Nega tive <20 Weak positive 20 - 39 Moderate positive 40 - 59 Strong positive >59Performed at: CB - [facility] [address] [place], [place] [id number] Director: Eros Rosales PhD, Phone: [phone] Performed By: #### L 100.0100, L3410.2000, L3100.9100, L101.9900, L3100.8408, L3100.5700, L3100.5800, L3100.5500, L3410.9992, L501.4405, L400.0001, L4600.0100, L501.1000, L505.7010, L501.1105, L501.4100, L3410.0700, L3100.5475, L501.6710 ####[facility] [address] [place], [place], [address] Complement C3on 04-03-2025 COMP C3 141 mg/dL Normal 82-167 [facility] Comment on above: Performed By: #### L 100.0100, L3410.2000, L3100.9100, L101.9900, L3100.8408, L3100.5700, L3100.5800, L3100.5500, L3410.9992, L501.4405, L400.0001, L4600.0100, L501.1000, L505.7010, L501.1105, L501.4100, L3410.0700, L3100.5475, L501.6710 ####[facility] [address] [place], [place], [phone] Complement C4on 04-03-2025 COMPLEMENT, C4 22 mg/dL Normal 12-38 [facility] Comment on above: Performed By: #### L 100.0100, L3410.2000, L3100.9100, L101.9900, L3100.8408, L3100.5700, L3100.5800, L3100.5500, L3410.9992, L501.4405, L400.0001, L4600.0100, L501.1000, L505.7010, L501.1105, L501.4100, L3410.0700, L3100.5475, L501.6710 ####[facility] [address] [facility] [place], [place], [id number] Sjogren's Antibodies A/Bon 0 - ANTI-SS-A < 0.2 Normal 0.0-0.9 [facility] Comment on above: Result Comment: AMENDED REPORT 04/03/251107 Anti-SS-A previously reported as: Test not performed Performed By: #### L 100.0100, L3410.2000, L3100.9100, L101.9900, L3100.8408, L3100.5700, L3100.5800, L3100.5500, L3410.9992, L501.4405, L400.0001, L4600.0100, L501.1000, L505.7010, L501.1105, L501.4100, L3410.0700, L3100.5475, L501.6710 ####[facility] [address] [place], [place], [address] ANTI-SS-B < 0.2 Normal 0.0-0.9 [facility] Comment on above: Result Comment: AMENDED REPORT 04/03/251107 Anti-SS-B previously reported as: Test not performed Performed By: #### L 100.0100, L3410.2000, L3100.9100, L101.9900, L3100.8408, L3100.5700, L3100.5800, L3100.5500, L3410.9992, L501.4405, L400.0001, L4600.0100, L501.1000, L505.7010, L501.1105, L501.4100, L3410.0700, L3100.5475, L501.6710 ####[facility] [address] [place], [address] AST(SGOT)on 04-02-2025 AST [Catalytic activity/Vol] 19 U/L Normal <=31 [facility] Comment on above: Performed By: #### L 100.0100, L3410.2000, L3100.9100, L101.9900, L3100.8408, L3100.5700, L3100.5800, L3100.5500, L3410.9992, L501.4405, L400.0001, L4600.0100, L501.1000, L505.7010, L501.1105, L501.4100, L3410.0700, L3100.5475, L501.6710 ####[facility] [address] [place], [place], [id number] Absolute lymphocyte countOrd ered By: FIGUEROA JENKINS on 04-02-2025 Lymphocytes Auto (Unsp spec) [#/Vol] 1.21 10*3/uL 0.83-4.51 [facility] Absolute neutrophil countOrd ered By: FIGUEROA JENKINS on 04-02-2025 Neutrophils (Bld) [#/Vol] 6.0 10*3/uL 2.0-7.7 [facility] Alanine Aminotransferas (SGP T)on 04-02-2025 ALT [Catalytic activity/Vol] 13 U/L Normal <=34 [facility] Comment on above: Performed By: #### L 100.0100, L3410.2000, L3100.9100, L101.9900, L3100.8408, L3100.5700, L3100.5800, L3100.5500, L3410.9992, L501.4405, L400.0001, L4600.0100, L501.1000, L505.7010, L501.1105, L501.4100, L3410.0700, L3100.5475, L501.6710 ####[facility] [address] [place], [place], [address] Automated lymphocyte count a s percentage of total leukocytesOrdered By: FIGUEROA JENKINS on 04-02-2025 Lymphocytes/100 WBC Auto (Unsp spec) 14.8 % Low 19-41 [facility] BUNon 04-02-2025 Urea nitrogen [Mass/Vol] 16 mg/dL Normal 4-19 [facility] Comment on above: Performed By: #### L 100.0100, L3410.2000, L3100.9100, L101.9900, L3100.8408, L3100.5700, L3100.5800, L3100.5500, L3410.9992, L501.4405, L400.0001, L4600.0100, L501.1000, L505.7010, L501.1105, L501.4100, L3410.0700, L3100.5475, L501.6710 ####[facility] [address] [place], [place], [phone] Basophil percentageOrdered B y: FIGUEROA JENKINS on 04-02-2025 Basophils/100 WBC (Bld) 1.0 % 0-[address] [facility] Bilirubin Test strip Ql (U)O rdered By: FIGUEROA JENKINS on 04-02-2025 Bilirubin Ql (U) Negative Negative [facility] CBC W/Diff, Automatedon Absolute Lymph 1.21 X10 3/uL Normal 0.83-4.51 [facility] Comment on above: Performed By: #### L 100.0100, L3410.2000, L3100.9100, L101.9900, L3100.8408, L3100.5700, L3100.5800, L3100.5500, L3410.9992, L501.4405, L400.0001, L4600.0100, L501.1000, L505.7010, L501.1105, L501.4100, L3410.0700, L3100.5475, L501.6710 ####[facility] [address] [place], [place], [address] Absolute Neut 6.0 X10 3/uL Normal 2.0-7.7 [facility] Comment on above: Performed By: #### L 100.0100, L3410.2000, L3100.9100, L101.9900, L3100.8408, L3100.5700, L3100.5800, L3100.5500, L3410.9992, L501.4405, L400.0001, L4600.0100, L501.1000, L505.7010, L501.1105, L501.4100, L3410.0700, L3100.5475, L501.6710 ####[facility] [address] [place], [address] Basophils/100 WBC (Bld) 1.0 % Normal 0-[address] [facility] Comment on above: Performed By: #### L 100.0100, L3410.2000, L3100.9100, L101.9900, L3100.8408, L3100.5700, L3100.5800, L3100.5500, L3410.9992, L501.4405, L400.0001, L4600.0100, L501.1000, L505.7010, L501.1105, L501.4100, L3410.0700, L3100.5475, L501.6710 ####[facility] [address] [place], [address] Eosinophils/100 WBC (Bld) 2.8 % Normal 0-5 [facility] Comment on above: Performed By: #### L 100.0100, L3410.2000, L3100.9100, L101.9900, L3100.8408, L3100.5700, L3100.5800, L3100.5500, L3410.9992, L501.4405, L400.0001, L4600.0100, L501.1000, L505.7010, L501.1105, L501.4100, L3410.0700, L3100.5475, L501.6710 ####[facility] [address] [facility] [place], [place], [phone] Erythrocyte distribution width (RBC) [Ratio] 14.2 % Normal 11.6-14.6 [facility] Comment on above: Performed By: #### L 100.0100, L3410.2000, L3100.9100, L101.9900, L3100.8408, L3100.5700, L3100.5800, L3100.5500, L3410.9992, L501.4405, L400.0001, L4600.0100, L501.1000, L505.7010, L501.1105, L501.4100, L3410.0700, L3100.5475, L501.6710 ####[facility] [address] [facility] [place], [place], [phone] Hematocrit (Bld) [Volume fraction] 40.0 % Normal 37-47 [facility] Comment on above: Performed By: #### L 100.0100, L3410.2000, L3100.9100, L101.9900, L3100.8408, L3100.5700, L3100.5800, L3100.5500, L3410.9992, L501.4405, L400.0001, L4600.0100, L501.1000, L505.7010, L501.1105, L501.4100, L3410.0700, L3100.5475, L501.6710 ####[facility] [address] [facility] [place], [place], [phone] Hemoglobin (Bld) [Mass/Vol] 13.0 g/dL Normal 12.0-15.0 [facility] Comment on above: Performed By: #### L 100.0100, L3410.2000, L3100.9100, L101.9900, L3100.8408, L3100.5700, L3100.5800, L3100.5500, L3410.9992, L501.4405, L400.0001, L4600.0100, L501.1000, L505.7010, L501.1105, L501.4100, L3410.0700, L3100.5475, L501.6710 ####[facility] [address] [place], [address] IG% 0.400 Normal 0.0-0.9 [facility] Comment on above: Result Comment: IG% - Immature Granulocytes (promyelocytes, myelocytes andmetamyelocytes) > 1% indicates that a LEFT SHIFT is Present. Performed By: #### L 100.0100, L3410.2000, L3100.9100, L101.9900, L3100.8408, L3100.5700, L3100.5800, L3100.5500, L3410.9992, L501.4405, L400.0001, L4600.0100, L501.1000, L505.7010, L501.1105, L501.4100, L3410.0700, L3100.5475, L501.6710 ####[facility] [address] [place], [address] Lymphocytes/100 WBC (Bld) 14.8 % Low 19-41 [facility] Comment on above: Performed By: #### L 100.0100, L3410.2000, L3100.9100, L101.9900, L3100.8408, L3100.5700, L3100.5800, L3100.5500, L3410.9992, L501.4405, L400.0001, L4600.0100, L501.1000, L505.7010, L501.1105, L501.4100, L3410.0700, L3100.5475, L501.6710 ####[facility] [address] [place], [address] MCH (RBC) [Entitic mass] 28.5 pg Normal 27.0-32.0 [facility] Comment on above: Performed By: #### L 100.0100, L3410.2000, L3100.9100, L101.9900, L3100.8408, L3100.5700, L3100.5800, L3100.5500, L3410.9992, L501.4405, L400.0001, L4600.0100, L501.1000, L505.7010, L501.1105, L501.4100, L3410.0700, L3100.5475, L501.6710 ####[facility] [address] [place], [place], [address] MCHC (RBC) [Mass/Vol] 32.5 g/dL Normal 32-36 [facility] Comment on above: Performed By: #### L 100.0100, L3410.2000, L3100.9100, L101.9900, L3100.8408, L3100.5700, L3100.5800, L3100.5500, L3410.9992, L501.4405, L400.0001, L4600.0100, L501.1000, L505.7010, L501.1105, L501.4100, L3410.0700, L3100.5475, L501.6710 ####[facility] [address] [place], [place], [address] MCV (RBC) [Entitic vol] 87.7 fL Normal 81-99 [facility] Comment on above: Performed By: #### L 100.0100, L3410.2000, L3100.9100, L101.9900, L3100.8408, L3100.5700, L3100.5800, L3100.5500, L3410.9992, L501.4405, L400.0001, L4600.0100, L501.1000, L505.7010, L501.1105, L501.4100, L3410.0700, L3100.5475, L501.6710 ####[facility] [address] [place], [place], [phone] Monocytes/100 WBC (Bld) 7.8 % Normal 0-[address] [facility] Comment on above: Performed By: #### L 100.0100, L3410.2000, L3100.9100, L101.9900, L3100.8408, L3100.5700, L3100.5800, L3100.5500, L3410.9992, L501.4405, L400.0001, L4600.0100, L501.1000, L505.7010, L501.1105, L501.4100, L3410.0700, L3100.5475, L501.6710 ####[facility] [address] [place], [place], [phone](118) Neutrophils/100 WBC (Bld) 73.2 % High 47-70 [facility] Comment on above: Performed By: #### L 100.0100, L3410.2000, L3100.9100, L101.9900, L3100.8408, L3100.5700, L3100.5800, L3100.5500, L3410.9992, L501.4405, L400.0001, L4600.0100, L501.1000, L505.7010, L501.1105, L501.4100, L3410.0700, L3100.5475, L501.6710 ####[facility] [address] [place], [place], [address] Nucleated RBC (Bld) [#/Vol] 0 10*3/uL Normal 0-5 [facility] Comment on above: Performed By: #### L 100.0100, L3410.2000, L3100.9100, L101.9900, L3100.8408, L3100.5700, L3100.5800, L3100.5500, L3410.9992, L501.4405, L400.0001, L4600.0100, L501.1000, L505.7010, L501.1105, L501.4100, L3410.0700, L3100.5475, L501.6710 ####[facility] [address] [facility] [place], [place], [phone](520) Platelet mean volume (Bld) [Entitic vol] 10.4 fL Normal 6.2-12.0 [facility] Comment on above: Performed By: #### L 100.0100, L3410.2000, L3100.9100, L101.9900, L3100.8408, L3100.5700, L3100.5800, L3100.5500, L3410.9992, L501.4405, L400.0001, L4600.0100, L501.1000, L505.7010, L501.1105, L501.4100, L3410.0700, L3100.5475, L501.6710 ####[facility] [address] [facility] [place], [place], [phone](236) Platelets (Bld) [#/Vol] 259 10*3/uL Normal 150-450 [facility] Comment on above: Performed By: #### L 100.0100, L3410.2000, L3100.9100, L101.9900, L3100.8408, L3100.5700, L3100.5800, L3100.5500, L3410.9992, L501.4405, L400.0001, L4600.0100, L501.1000, L505.7010, L501.1105, L501.4100, L3410.0700, L3100.5475, L501.6710 ####[facility] [address] [facility] [place], [place], [phone](139) RBC (Bld) [#/Vol] 4.56 10*6/uL Normal 4.2-5.4 [facility] Comment on above: Performed By: #### L 100.0100, L3410.2000, L3100.9100, L101.9900, L3100.8408, L3100.5700, L3100.5800, L3100.5500, L3410.9992, L501.4405, L400.0001, L4600.0100, L501.1000, L505.7010, L501.1105, L501.4100, L3410.0700, L3100.5475, L501.6710 ####[facility] [address] [facility] [place], [address] RDW SD 45.3 fl High 35.1-43.9 [facility] Comment on above: Performed By: #### L 100.0100, L3410.2000, L3100.9100, L101.9900, L3100.8408, L3100.5700, L3100.5800, L3100.5500, L3410.9992, L501.4405, L400.0001, L4600.0100, L501.1000, L505.7010, L501.1105, L501.4100, L3410.0700, L3100.5475, L501.6710 ####[facility] [address] [facility] [place], [address] WBC (Bld) [#/Vol] 8.2 10*3/uL Normal 4.4-11.0 [facility] Comment on above: Performed By: #### L 100.0100, L3410.2000, L3100.9100, L101.9900, L3100.8408, L3100.5700, L3100.5800, L3100.5500, L3410.9992, L501.4405, L400.0001, L4600.0100, L501.1000, L505.7010, L501.1105, L501.4100, L3410.0700, L3100.5475, L501.6710 ####[facility] [address] [facility] [place], [address] CRPon 04-02-2025 C-REACTIVE PROT < 3.00 Normal 0.0-3.0 [facility] Comment on above: Performed By: #### L 100.0100, L3410.2000, L3100.9100, L101.9900, L3100.8408, L3100.5700, L3100.5800, L3100.5500, L3410.9992, L501.4405, L400.0001, L4600.0100, L501.1000, L505.7010, L501.1105, L501.4100, L3410.0700, L3100.5475, L501.6710 ####[facility] [address] [facility] [facility] [place], [place], [phone] Eosinophil percentageOrdered By: FIGUEROA JENKINS on 04-02-2025 Eosinophils/100 WBC (Bld) 2.8 % 0-5 [facility] Erythrocyte Sed Rateon 04-02 SED RATE 23 mm/hr Normal 0-30 [facility] Comment on above: Performed By: #### L 100.0100, L3410.2000, L3100.9100, L101.9900, L3100.8408, L3100.5700, L3100.5800, L3100.5500, L3410.9992, L501.4405, L400.0001, L4600.0100, L501.1000, L505.7010, L501.1105, L501.4100, L3410.0700, L3100.5475, L501.6710 ####[facility] [address] [facility] [place], [place], [phone] Erythrocyte distribution wid th ratioOrdered By: FIGUEROA JENKINS on 04-02-2025 Erythrocyte distribution width (RBC) [Ratio] 14.2 % 11.6-14.6 [facility] Erythrocyte distribution wid th standard deviationOrdered By: FIGUEROA JENKINS on 04-02-2025 Erythrocyte distribution width (RBC) [Ratio] 45.3 fl High 35.1-43.9 [facility] Erythrocyte sedimentation ra teOrdered By: FIGUEROA JENKINS on 04-02-2025 ESR (Bld) [Velocity] 23 mm/h 0-30 [facility] Glomerular filtration rate ( GFR) estimation/1.73 sq m using serum, plasma, or whole bOrdered By: FIGUEROA JENKINS on 04-02-2025 GFR/1.73 sq M.predicted among non-blacks MDRD (S/P/Bld) [Vol rate/Area] 77 mL/min/{1.73_m2} >60 [facility] Comment on above: mL/min/1.73m2 CKD-EP I Creatinine Equation (2020) Hand Min 3 Viewson Hand Min 3 Views Normal [facility] Hand Min 3 Views Normal [facility] Hematocrit Auto (Bld) [Volum e fraction]Ordered By: FIGUEROA JENKINS on 04-02-2025 Hematocrit (Bld) [Volume fraction] 40.0 % 37-47 [facility] Hemoglobin measurementOrdere d By: FIGUEROA JENKINS on 04-02-2025 Hemoglobin (Bld) [Mass/Vol] 13.0 g/dL 12.0-15.0 [facility] Immature granulocytes/100 WB C Auto (Bld)Ordered By: FIGUEROA JENKINS on 04-02-2025 Immature granulocytes/100 WBC (Bld) 0.400 % 0.0-0.9 [facility] Comment on above: IG% - Immature Granu locytes (promyelocytes, myelocytes and metamyelocytes) > 1% indicates that a LEFT SHIFT is Present. Ketones Test strip Ql (U)Ord ered By: FIGUEROA JENKINS on 04-02-2025 Ketones Ql (U) Negative Negative [facility] Laboratory - Chemistry and C hemistry - challengeOrdered By: FIGUEROA JENKINS on 04-02-2025 AST [Catalytic activity/Vol] 19 U/L <32 [facility] MCV (mean corpuscular volume ) determinationOrdered By: FIGUEROA JENKINS on 04-02-2025 MCV (RBC) [Entitic vol] 87.7 fL 81-[address] [facility] Mean corpuscular hemoglobin (MCH) determinationOrdered By: FIGUEROA JENKINS on 04-02-2025 MCH (RBC) [Entitic mass] 28.5 pg 27.0-32.0 [facility] Mean corpuscular hemoglobin concentration (MCHC) determinationOrdered By: FIGUEROA JENKINS on 04-02-2025 MCHC (RBC) [Mass/Vol] 32.5 g/dL 32-36 [facility] Mean platelet volume determi nationOrdered By: FIGUEROA JENKINS on 04-02-2025 Platelet mean volume (Bld) [Entitic vol] 10.4 fL 6.2-12.0 [facility] Microscopic analysis of urin e for red blood cells (RBC)Ordered By: FIGUEROA JENKINS on 04-02-2025 Microscopic analysis of urine for red blood cells (RBC) 0-5 SEEN /hpf 0-5 [facility] Monocyte percentageOrdered B y: FIGUEROA JENKINS on 04-02-2025 Monocytes/100 WBC (Bld) 7.8 % 0-[address] [facility] Mucus LM Ql (Urine sed)Order ed By: FIGUEROA JENKINS on 04-02-2025 Mucus Ql (Urine sed) 0 SEEN /hpf [facility] Neutrophil percentageOrdered By: FIGUEROA JENKINS on 04-02-2025 Neutrophils/100 WBC (Bld) 73.2 % High 47-70 [facility] Nitrite Test strip Ql (U)Ord ered By: FIGUEROA JENKINS on 04-02-2025 Nitrite Ql (U) Negative Negative [facility] No Panel InformationOrdered By: FIGUEROA JENKINS on 04-02-2025 19 U/L <32 [facility] Nucleated red blood cell per centageOrdered By: FIGUEROA JENKINS on 04-02-2025 Nucleated RBC/100 WBC (Bld) [Ratio] 0 % 0-5 [facility] Platelet countOrdered By: RA CHUCK JENKINS on 04-02-2025 Platelets (Bld) [#/Vol] 259 10*3/uL 150-450 [facility] Protein Test strip Ql (U)Ord ered By: FIGUEROA JENKINS on 04-02-2025 Protein Ql (U) 15 mg/dl High Negative [facility] Pulmonary Visit Reporton Pulmonary Visit Report Normal [facility] RBC Auto (Bld) [#/Vol]Ordere d By: FIGUEROA JENKINS on 04-02-2025 RBC (Bld) [#/Vol] 4.56 10*6/uL 4.2-5.4 [facility] Rheumatoid Factoron 04-02-20 25 RHEUMATOID FAC < 10.0 Normal <15 [facility] Comment on above: Performed By: #### L 100.0100, L3410.2000, L3100.9100, L101.9900, L3100.8408, L3100.5700, L3100.5800, L3100.5500, L3410.9992, L501.4405, L400.0001, L4600.0100, L501.1000, L505.7010, L501.1105, L501.4100, L3410.0700, L3100.5475, L501.6710 ####[facility] [address] [place], [place], [id number] Serum Creatinine AND GFRon 0 - Creatinine [Mass/Vol] 0.81 mg/dL Normal 0.70-1.20 [facility] Comment on above: Performed By: #### L 100.0100, L3410.2000, L3100.9100, L101.9900, L3100.8408, L3100.5700, L3100.5800, L3100.5500, L3410.9992, L501.4405, L400.0001, L4600.0100, L501.1000, L505.7010, L501.1105, L501.4100, L3410.0700, L3100.5475, L501.6710 ####[facility] [address] [place], [place], [id number] GFR/1.73 sq M.predicted among non-blacks MDRD (S/P/Bld) [Vol rate/Area] 77 mL/min/{1.73_m2} Normal >60 [facility] Comment on above: Result Comment: mL/m in/1.73m2 CKD-EPI Creatinine Equation (2020) Performed By: #### L 100.0100, L3410.2000, L3100.9100, L101.9900, L3100.8408, L3100.5700, L3100.5800, L3100.5500, L3410.9992, L501.4405, L400.0001, L4600.0100, L501.1000, L505.7010, L501.1105, L501.4100, L3410.0700, L3100.5475, L501.6710 ####[facility] [address] [place], [address] Serum DNA double strand anti body assay (units/volume)Ordered By: FIGUEROA JENKINS on 04-02-2025 DNA double strand Ab Qn (S) [IU]/mL 0-9 [facility] Comment on above: Negative <5 Equivoca l 5 - 9 Positive >9 Serum Scl-70 antibody assay (units/volume)Ordered By: FIGUEROA JENKINS on 04-02-2025 SCL-70 extractable nuclear Ab Qn (S) <0.2 AI 0.0-0.9 [facility] Comment on above: Previous reported re sult: TNP AIEdited by: JODY on 04/03/25:1108 AMENDED REPORT 04/03/25 1108 ANTISCLER previously reported as: Test not performed Serum beta 2 glycoprotein 1 IgA antibody detectionOrdered By: FIGUEROA JENKINS on 04-02-2025 Beta 2 glycoprotein 1 IgA Ql (S) <9 0-25 [facility] Comment on above: Result Units: GPI Ig A unitsThe reference interval reflects a 3SD or 99th percentileinterval, which is thought to represent a potentiallyclinically significant result in accordance with theInternational Consensus Statement on the classificationcriteria for definitive antiphospholipid syndrome (APS). JThromb Haem 2006;4:295-306. Serum beta 2 glycoprotein 1 IgG antibody detectionOrdered By: FIGUEROA JENKINS on 04-02-2025 Beta 2 glycoprotein 1 IgG Ql (S) <9 0-20 [facility] Comment on above: Result Units: GPI Ig G unitsThe reference interval reflects a 3SD or 99th percentileinterval, which is thought to represent a potentiallyclinically significant result in accordance with theInternational Consensus Statement on the classificationcriteria for definitive antiphospholipid syndrome (APS). JThromb Haem 2006;4:295-306. Serum beta 2 glycoprotein 1 IgM antibody detectionOrdered By: FIGUEROA JENKINS on 04-02-2025 Beta 2 glycoprotein 1 IgM Ql (S) <9 0-32 [facility] Comment on above: Result Units: GPI Ig M unitsThe reference interval reflects a 3SD or 99th percentileinterval, which is thought to represent a potentiallyclinically significant result in accordance with theInternational Consensus Statement on the classificationcriteria for definitive antiphospholipid syndrome (APS). JThromb Haem 2006;4:295-306. Serum cardiolipin IgG antibo dy assay by immunoassay (units/volume)Ordered By: FIGUEROA JENKINS on 04-02-2025 Cardiolipin IgG IA Qn (S) 13 GPL U/mL 0-14 [facility] Comment on above: Negative: <15 Indete rminate: 15 - 20 Low-Med Positive: >20 - 80 High Positive: >80 Serum creatinine measurement (mass/volume)Ordered By: FIGUEROA JENKINS on 04-02-2025 Creatinine [Mass/Vol] 0.81 mg/dL 0.70-1.20 [facility] Serum or plasma C reactive p rotein measurement (mass/volume)Ordered By: FIGUEROA JENKINS on 04-02-2025 CRP [Mass/Vol] mg/L 0.0-3.0 [facility] Serum or plasma alanine lake otransferase (ALT) measurementOrdered By: FIGUEROA JENKINS on 04-02-2025 ALT [Catalytic activity/Vol] 13 U/L <35 [facility] Serum or plasma cardiolipin IgA antibody assay (units/volume)Ordered By: FIGUEROA JENKINS on 04-02-2025 Cardiolipin IgA Qn > 150 APL U/mL High 0-11 [facility] Comment on above: Negative: <12 Indete rminate: 12 - 20 Low-Med Positive: >20 - 80 High Positive: >80 Serum or plasma complement C 4 measurement (mass/volume)Ordered By: FIGUEROA JENKINS on 04-02-2025 Complement C4 [Mass/Vol] 22 mg/dL 12-38 [facility] Serum or plasma cyclic citru llinated peptide IgG antibody assay (units/volume)Ordered By: FIGUEROA JENKINS on 04-02-2025 Cyclic citrullinated peptide IgG Qn 9 units 0-19 [facility] Comment on above: Negative <20 Weak po sitive 20 - 39 Moderate positive 40 - 59 Strong positive >59Performed at: [facility] [id number] [place], [place] [id number] Director: Eros Rosales PhD, Phone: [phone] Serum or plasma urea nitroge n measurement (mass/volume)Ordered By: FIGUEROA JENKINS on 04-02-2025 Urea nitrogen [Mass/Vol] 16 mg/dL 4-19 [facility] Serum rheumatoid factor dete ctionOrdered By: FIGUEROA JENKINS on 04-02-2025 Rheumatoid factor Ql (S) < 10.0 IU/mL <15 [facility] Squamous epithelial cells de tection in urine sediment by light microscopyOrdered By: FIGUEROA JENKINS on 04-02-2025 Epithelial cells.squamous LM Ql (Urine sed) 0-5 SEEN /hpf - [facility] Urinalysis, Completeon 04-02 EPI,SQUAMOUS 0-5 SEEN Normal 04-07 [facility] Comment on above: Order Comment: Urine , Random Performed By: #### L 100.0100, L3410.2000, L3100.9100, L101.9900, L3100.8408, L3100.5700, L3100.5800, L3100.5500, L3410.9992, L501.4405, L400.0001, L4600.0100, L501.1000, L505.7010, L501.1105, L501.4100, L3410.0700, L3100.5475, L501.6710 ####[facility] [id number] [place]ne. [place], [place], [id number] RBC 0-5 SEEN Normal 0-5 [facility] Comment on above: Order Comment: Urine , Random Performed By: #### L 100.0100, L3410.2000, L3100.9100, L101.9900, L3100.8408, L3100.5700, L3100.5800, L3100.5500, L3410.9992, L501.4405, L400.0001, L4600.0100, L501.1000, L505.7010, L501.1105, L501.4100, L3410.0700, L3100.5475, L501.6710 ####[facility] [address] [place], [place], [id number] WBC 0-5 SEEN Normal 0-5 [facility] Comment on above: Order Comment: Urine , Random Performed By: #### L 100.0100, L3410.2000, L3100.9100, L101.9900, L3100.8408, L3100.5700, L3100.5800, L3100.5500, L3410.9992, L501.4405, L400.0001, L4600.0100, L501.1000, L505.7010, L501.1105, L501.4100, L3410.0700, L3100.5475, L501.6710 ####[facility] [address] [place], [place], [id number] BACTERIA 0 SEEN Normal None Seen [facility] Comment on above: Order Comment: Urine , Random Performed By: #### L 100.0100, L3410.2000, L3100.9100, L101.9900, L3100.8408, L3100.5700, L3100.5800, L3100.5500, L3410.9992, L501.4405, L400.0001, L4600.0100, L501.1000, L505.7010, L501.1105, L501.4100, L3410.0700, L3100.5475, L501.6710 ####[facility] [address] [place], [place], [id number] Mucus Ql (Urine sed) 0 SEEN Normal [facility] Comment on above: Order Comment: Urine , Random Performed By: #### L 100.0100, L3410.2000, L3100.9100, L101.9900, L3100.8408, L3100.5700, L3100.5800, L3100.5500, L3410.9992, L501.4405, L400.0001, L4600.0100, L501.1000, L505.7010, L501.1105, L501.4100, L3410.0700, L3100.5475, L501.6710 ####[facility] [address] [place], [address] Urine clarityOrdered By: DANA JENKINS on 04-02-2025 Clarity (U) Clear Clear [facility] Urine color determinationOrd ered By: FIGUEROA JENKINS on 04-02-2025 Color (U) Yellow Yellow [facility] Urine glucose detectionOrder ed By: FIGUEROA JENKINS on 04-02-2025 Glucose Ql (U) Normal mg/dl Normal [facility] Urine leukocyte esterase det ection by dipstickOrdered By: FIGUEROA JENKINS on 04-02-2025 Leukocyte esterase Test strip Ql (U) 25 /ul High Negative [facility] Urine pHOrdered By: FIGUEROA MENDOZA on 04-02-2025 pH (U) 7.0 [pH] 5.0 - 8.0 [facility] Urine sediment bacteria coun t by microscopy (number/high power field)Ordered By: FIGUEROA JENKINS on 04-02-2025 Bacteria LM.HPF (Urine sed) [#/Area] 0 /[HPF] None Seen [facility] Urine specific gravity measu rementOrdered By: FIGUEROA JENKINS on 04-02-2025 Specific gravity (U) [Rel density] 1.015 1.002-1.030 [facility] Urine urobilinogen measureme ntOrdered By: FIGUEROA JENKINS on 04-02-2025 Urobilinogen Ql (U) Normal mg/dl Normal [facility] White blood cell (WBC) count Ordered By: FIGUEROA JENKINS on 04-02-2025 WBC (Bld) [#/Vol] 8.2 10*3/uL 4.4-11.0 [facility] White blood cell countOrdere d By: FIGUEROA JENKINS on 04-02-2025 White blood cell count 0-5 SEEN /hpf 0-5 [facility] Wrist min 3 Viewson 04-02-20 25 Wrist min 3 Views Normal [facility] Basic Metabolic Profile (BMP )on 03-09-2025 Anion Gap Normal 5-15 [facility] Comment on above: Result Comment: Canc elled via OM: Order cancelled - Patient discharged Performed By: #### L 500.2500, L100.0100 ####[facility] [address] [place], [address] BUN Normal 4-19 [facility] Comment on above: Result Comment: Canc elled via OM: Order cancelled - Patient discharged Performed By: #### L 500.2500, L100.0100 ####[facility] [address] [place], [address] BUN/CRE Normal 10-20 [facility] Comment on above: Result Comment: Canc elled via OM: Order cancelled - Patient discharged Performed By: #### L 500.2500, L100.0100 ####[facility] [address] [place], [address] Calcium Normal 7.6-11.0 [facility] Comment on above: Result Comment: Canc elled via OM: Order cancelled - Patient discharged Performed By: #### L 500.2500, L100.0100 ####[facility] [address] [place], [address] Chloride Normal 96-108 [facility] Comment on above: Result Comment: Canc elled via OM: Order cancelled - Patient discharged Performed By: #### L 500.2500, L100.0100 ####[facility] [address] [place], [address] CO2 Normal 22.0-29.0 [facility] Comment on above: Result Comment: Canc elled via OM: Order cancelled - Patient discharged Performed By: #### L 500.2500, L100.0100 ####[facility] [address] [place], [address] CREAT,SERUM Normal 0.70-1.20 [facility] Comment on above: Result Comment: Canc elled via OM: Order cancelled - Patient discharged Performed By: #### L 500.2500, L100.0100 ####[facility] [address] [place], [address] eGFR Normal >60 [facility] Comment on above: Result Comment: Canc elled via OM: Order cancelled - Patient discharged Performed By: #### L 500.2500, L100.0100 ####[facility] [address] [place], [address] GLU Normal 70-99 [facility] Comment on above: Result Comment: Canc elled via OM: Order cancelled - Patient discharged Performed By: #### L 500.2500, L100.0100 ####[facility] [address] [place], [address] Potassium Normal 3.3-5.1 [facility] Comment on above: Result Comment: Canc elled via OM: Order cancelled - Patient discharged Performed By: #### L 500.2500, L100.0100 ####[facility] [address] [place], [address] Sodium Normal 133-145 [facility] Comment on above: Result Comment: Canc elled via OM: Order cancelled - Patient discharged Performed By: #### L 500.2500, L100.0100 ####[facility] [address] [place], [address] CBC W/Diff, Automatedon 04- Absolute Neut Normal 2.0-7.7 [facility] Comment on above: Result Comment: Canc elled via OM: Order cancelled - Patient discharged Performed By: #### L 500.2500, L100.0100 ####[facility] [address] [place], [address] HCT Normal 37-47 [facility] Comment on above: Result Comment: Canc elled via OM: Order cancelled - Patient discharged Performed By: #### L 500.2500, L100.0100 ####[facility] [address] [place], [address] HGB Normal 12.0-15.0 [facility] Comment on above: Result Comment: Canc elled via OM: Order cancelled - Patient discharged Performed By: #### L 500.2500, L100.0100 ####[facility] [address] [place], [address] MCH Normal 27.0-32.0 [facility] Comment on above: Result Comment: Canc elled via OM: Order cancelled - Patient discharged Performed By: #### L 500.2500, L100.0100 ####[facility] [address] [place], [address] MCHC Normal 32-36 [facility] Comment on above: Result Comment: Canc elled via OM: Order cancelled - Patient discharged Performed By: #### L 500.2500, L100.0100 ####[facility] [address] [place], [address] MCV Normal 81-99 [facility] Comment on above: Result Comment: Canc elled via OM: Order cancelled - Patient discharged Performed By: #### L 500.2500, L100.0100 ####[facility] [address] [place], [address] NEUT% Normal 47-70 [facility] Comment on above: Result Comment: Canc elled via OM: Order cancelled - Patient discharged Performed By: #### L 500.2500, L100.0100 ####[facility] [address] [place], [address] PLT Normal 150-450 [facility] Comment on above: Result Comment: Canc elled via OM: Order cancelled - Patient discharged Performed By: #### L 500.2500, L100.0100 ####[facility] [address] [place], [address] RBC Normal 4.2-5.4 [facility] Comment on above: Result Comment: Canc elled via OM: Order cancelled - Patient discharged Performed By: #### L 500.2500, L100.0100 ####[facility] [address] [place], [address] RDW CV Normal 11.6-14.6 [facility] Comment on above: Result Comment: Canc elled via OM: Order cancelled - Patient discharged Performed By: #### L 500.2500, L100.0100 ####[facility] [address] [place], [address] RDW SD Normal 35.1-43.9 [facility] Comment on above: Result Comment: Canc elled via OM: Order cancelled - Patient discharged Performed By: #### L 500.2500, L100.0100 ####[facility] [address] [place], [address] WBC Normal 4.4-11.0 [facility] Comment on above: Result Comment: Canc elled via OM: Order cancelled - Patient discharged Performed By: #### L 500.2500, L100.0100 ####[facility] [address] [place], [address] Basic Metabolic Profile (BMP )on 03-02-2025 Anion Gap Normal 5-15 [facility] Comment on above: Result Comment: Canc elled via OM: Order cancelled - Patient discharged Performed By: #### L 500.2500, L100.0100 ####[facility] [address] [place], [address] BUN Normal 4-19 [facility] Comment on above: Result Comment: Canc elled via OM: Order cancelled - Patient discharged Performed By: #### L 500.2500, L100.0100 ####[facility] [address] [place], [address] BUN/CRE Normal 10-20 [facility] Comment on above: Result Comment: Canc elled via OM: Order cancelled - Patient discharged Performed By: #### L 500.2500, L100.0100 ####[facility] [address] [place], [address] Calcium Normal 7.6-11.0 [facility] Comment on above: Result Comment: Canc elled via OM: Order cancelled - Patient discharged Performed By: #### L 500.2500, L100.0100 ####[facility] [address] [place], [address] Chloride Normal 96-108 [facility] Comment on above: Result Comment: Canc elled via OM: Order cancelled - Patient discharged Performed By: #### L 500.2500, L100.0100 ####[facility] [address] [place], [address] CO2 Normal 22.0-29.0 [facility] Comment on above: Result Comment: Canc elled via OM: Order cancelled - Patient discharged Performed By: #### L 500.2500, L100.0100 ####[facility] [address] [place], [address] CREAT,SERUM Normal 0.70-1.20 [facility] Comment on above: Result Comment: Canc elled via OM: Order cancelled - Patient discharged Performed By: #### L 500.2500, L100.0100 ####[facility] [address] [place], [address] eGFR Normal >60 [facility] Comment on above: Result Comment: Canc elled via OM: Order cancelled - Patient discharged Performed By: #### L 500.2500, L100.0100 ####[facility] [address] [place], [address] GLU Normal 70-99 [facility] Comment on above: Result Comment: Canc elled via OM: Order cancelled - Patient discharged Performed By: #### L 500.2500, L100.0100 ####[facility] [address] [place], [address] Potassium Normal 3.3-5.1 [facility] Comment on above: Result Comment: Canc elled via OM: Order cancelled - Patient discharged Performed By: #### L 500.2500, L100.0100 ####[facility] [address] [place], [address] Sodium Normal 133-145 [facility] Comment on above: Result Comment: Canc elled via OM: Order cancelled - Patient discharged Performed By: #### L 500.2500, L100.0100 ####[facility] [address] [place], [address] CBC W/Diff, Automatedon 04-0 Absolute Neut Normal 2.0-7.7 [facility] Comment on above: Result Comment: Canc elled via OM: Order cancelled - Patient discharged Performed By: #### L 500.2500, L100.0100 ####[facility] [address] [place], [address] HCT Normal 37-47 [facility] Comment on above: Result Comment: Canc elled via OM: Order cancelled - Patient discharged Performed By: #### L 500.2500, L100.0100 ####[facility] [address] [place], [address] HGB Normal 12.0-15.0 [facility] Comment on above: Result Comment: Canc elled via OM: Order cancelled - Patient discharged Performed By: #### L 500.2500, L100.0100 ####[facility] [address] [place], [address] MCH Normal 27.0-32.0 [facility] Comment on above: Result Comment: Canc elled via OM: Order cancelled - Patient discharged Performed By: #### L 500.2500, L100.0100 ####[facility] [address] [place], [address] MCHC Normal 32-36 [facility] Comment on above: Result Comment: Canc elled via OM: Order cancelled - Patient discharged Performed By: #### L 500.2500, L100.0100 ####[facility] [address] [place], [address] MCV Normal 81-99 [facility] Comment on above: Result Comment: Canc elled via OM: Order cancelled - Patient discharged Performed By: #### L 500.2500, L100.0100 ####[facility] [address] [place], [address] NEUT% Normal 47-70 [facility] Comment on above: Result Comment: Canc elled via OM: Order cancelled - Patient discharged Performed By: #### L 500.2500, L100.0100 ####[facility] [address] [place], [address] PLT Normal 150-450 [facility] Comment on above: Result Comment: Canc elled via OM: Order cancelled - Patient discharged Performed By: #### L 500.2500, L100.0100 ####[facility] [address] [place], [address] RBC Normal 4.2-5.4 [facility] Comment on above: Result Comment: Canc elled via OM: Order cancelled - Patient discharged Performed By: #### L 500.2500, L100.0100 ####[facility] [address] [place], [address] RDW CV Normal 11.6-14.6 [facility] Comment on above: Result Comment: Canc elled via OM: Order cancelled - Patient discharged Performed By: #### L 500.2500, L100.0100 ####[facility] [address] [place], [address] RDW SD Normal 35.1-43.9 [facility] Comment on above: Result Comment: Canc elled via OM: Order cancelled - Patient discharged Performed By: #### L 500.2500, L100.0100 ####[facility] [address] [place], [address] WBC Normal 4.4-11.0 [facility] Comment on above: Result Comment: Canc elled via OM: Order cancelled - Patient discharged Performed By: #### L 500.2500, L100.0100 ####[facility] [address] [place], [address] Venous Duplex US, Unilateral on 02-27-2025 Venous Duplex US, Unilateral Normal [facility] Venous duplex ultrasound rep ortOrdered By: Raymundo Petty on 02-27-2025 US Vein [facility] [address] [place] [address] Venous Duplex US, Unilateral 02/27/25 1333 MR#: [id number] Acct: [id number] Name: EDSON COOK Rep #:[id number] : 1955 69 From: Raymundo Stephens Attending Dr: Cindy Guerrier, BRONZE PLATER-C Status: REG CLI Ordering Dr: Scott Mcdowell MD Date: 12/23 Location: N Sex: F C Admitted: Reason For Study Reason For Study: Swelling RIGHT LEFT CFV is compressible, spontaneous, phasic, competent GSV is normal. and demonstrates normal augmentation. CFV is compressible, spontaneous, phasic, competent, Procedure and demonstrates normal augmentation. This is a venous duplex using B-mode, color flow and FV is compressible, spontaneous, phasic, competent spectral Doppler. and demonstrates normal augmentation. Exam performed in department. POP V is compressible, spontaneous, phasic, competent A preliminary report was called and/or faxed to Scott and demonstrates normal augmentation. Cm Mcdowell MD. T/P Trunk is compressible. PTV is compressible. LT PerV is compressible. VL/Venous Duplex US, Unilateral Interpretation Summary Deep veins of the left lower extremity are patent and compressible segmentally. There is no evidence of left lower extremity deep vein thrombosis. The left great saphenous vein appears patent andcompressible segmentally. Ordering Physician: Scott Mcdowell Chi Referring Physician: Scott Mcdowell Chi Performed By: Kaylan Francisco RVT 02/27/25 1629 Date _ Raymundo Petty MD CC: BRONZE PLATER-Shakira Guerrier; Dr. Scott Mcdowell MD ~ Date Dictated: 02/27/25 1333 Date Transcribed: 02/27/25 1629 Mat Machine Tender: Signed [facility] Work Phone: Basic Metabolic Profile (BMP )on 02-23-2025 Anion Gap Normal 5-15 [facility] Comment on above: Result Comment: Canc elled via OM: Order cancelled - Patient discharged Performed By: #### L 100.0100, L500.2500 ####[facility] [address] [place], [address] BUN Normal 4-19 [facility] Comment on above: Result Comment: Canc elled via OM: Order cancelled - Patient discharged Performed By: #### L 100.0100, L500.2500 ####[facility] [address] [place], [address] BUN/CRE Normal 10-20 [facility] Comment on above: Result Comment: Canc elled via OM: Order cancelled - Patient discharged Performed By: #### L 100.0100, L500.2500 ####[facility] [address] [place], [address] Calcium Normal 7.6-11.0 [facility] Comment on above: Result Comment: Canc elled via OM: Order cancelled - Patient discharged Performed By: #### L 100.0100, L500.2500 ####[facility] [address] [place], [address] Chloride Normal 96-108 [facility] Comment on above: Result Comment: Canc elled via OM: Order cancelled - Patient discharged Performed By: #### L 100.0100, L500.2500 ####[facility] [address] [place], [address] CO2 Normal 22.0-29.0 [facility] Comment on above: Result Comment: Canc elled via OM: Order cancelled - Patient discharged Performed By: #### L 100.0100, L500.2500 ####[facility] [address] [place], [address] CREAT,SERUM Normal 0.70-1.20 [facility] Comment on above: Result Comment: Canc elled via OM: Order cancelled - Patient discharged Performed By: #### L 100.0100, L500.2500 ####[facility] [address] [place], [address] eGFR Normal >60 [facility] Comment on above: Result Comment: Canc elled via OM: Order cancelled - Patient discharged Performed By: #### L 100.0100, L500.2500 ####[facility] [address] [place], [address] GLU Normal 70-99 [facility] Comment on above: Result Comment: Canc elled via OM: Order cancelled - Patient discharged Performed By: #### L 100.0100, L500.2500 ####[facility] [address] [place], [address] Potassium Normal 3.3-5.1 [facility] Comment on above: Result Comment: Canc elled via OM: Order cancelled - Patient discharged Performed By: #### L 100.0100, L500.2500 ####[facility] [address] [place], [address] Sodium Normal 133-145 [facility] Comment on above: Result Comment: Canc elled via OM: Order cancelled - Patient discharged Performed By: #### L 100.0100, L500.2500 ####[facility] [address] [place], [address] CBC W/Diff, Automatedon - Absolute Neut Normal 2.0-7.7 [facility] Comment on above: Result Comment: Canc elled via OM: Order cancelled - Patient discharged Performed By: #### L 100.0100, L500.2500 ####[facility] [address] [place], [address] HCT Normal 37-47 [facility] Comment on above: Result Comment: Canc elled via OM: Order cancelled - Patient discharged Performed By: #### L 100.0100, L500.2500 ####[facility] [address] [place], [address] HGB Normal 12.0-15.0 [facility] Comment on above: Result Comment: Canc elled via OM: Order cancelled - Patient discharged Performed By: #### L 100.0100, L500.2500 ####[facility] [address] [place], [address] MCH Normal 27.0-32.0 [facility] Comment on above: Result Comment: Canc elled via OM: Order cancelled - Patient discharged Performed By: #### L 100.0100, L500.2500 ####[facility] [address] [place], [address] MCHC Normal 32-36 [facility] Comment on above: Result Comment: Canc elled via OM: Order cancelled - Patient discharged Performed By: #### L 100.0100, L500.2500 ####[facility] [address] [place], [address] MCV Normal 81-99 [facility] Comment on above: Result Comment: Canc elled via OM: Order cancelled - Patient discharged Performed By: #### L 100.0100, L500.2500 ####[facility] [address] [place], [address] NEUT% Normal 47-70 [facility] Comment on above: Result Comment: Canc elled via OM: Order cancelled - Patient discharged Performed By: #### L 100.0100, L500.2500 ####[facility] [address] [place], [address] PLT Normal 150-450 [facility] Comment on above: Result Comment: Canc elled via OM: Order cancelled - Patient discharged Performed By: #### L 100.0100, L500.2500 ####[facility] [address] [place], [address] RBC Normal 4.2-5.4 [facility] Comment on above: Result Comment: Canc elled via OM: Order cancelled - Patient discharged Performed By: #### L 100.0100, L500.2500 ####[facility] [address] [place], [address] RDW CV Normal 11.6-14.6 [facility] Comment on above: Result Comment: Canc elled via OM: Order cancelled - Patient discharged Performed By: #### L 100.0100, L500.2500 ####[facility] [address] [place], [address] RDW SD Normal 35.1-43.9 [facility] Comment on above: Result Comment: Canc elled via OM: Order cancelled - Patient discharged Performed By: #### L 100.0100, L500.2500 ####[facility] [address] [place], [address] WBC Normal 4.4-11.0 [facility] Comment on above: Result Comment: Canc elled via OM: Order cancelled - Patient discharged Performed By: #### L 100.0100, L500.2500 ####[facility] [address] [place], [address] L3410.9998on 02-21-2025 [facility] Misc. COMMENT Normal . [facility] Comment on above: Order Comment: [id number] 5MYOMARKER PROFILE Result Comment: Test Ordered: [id number] MyoMarker 3 Plus Profile (RDL)Test(s) 400982-Pjuh-UR-0 Ab (RDL); 874554-Xlly-WZ-59 Ab (RDL); 319744-Sclj-GI Ab (RDL); 614243-Qbyn-RB Ab (RDL); 785195-Pvyw-XJY Ab (RDL); 273632-Bbnw-Du-3 Ab (RDL); 896246-Najd-KNC-8yeoxy Ab (RDL);230629-Kgdn-PEU-2 Ab (CADM-140)(RDL); 280349-Bvcs-QFM-8 (P140) Ab (RDL); 771588-Lzwz-NAX2 Ab, IgG (RDL);336814-Siqw-QS/Scl-100 Ab (RDL); 098666-Zxze-Wd Ab (RDL);465559-Tuva-ZU-T 52kD Ab, IgG (RDL); 463329-Uibg-W6 WHITE SUGAR SYRUP OPERATOR Ab (RDL); 601480-Cfbz-H3 WHITE SUGAR SYRUP OPERATOR (Fibrillarin)(RDL)was developed and its performance characteristicsdetermined by [employer]. It has not been cleared or approvedby the Food and Drug Administration.Anti-Rose-1 Ab (RDL) <20 Units ESECF Reference Range: <20Anti-PL-7 Ab (RDL) Negative ESECF Reference Range: IaygjmvuJlrl-DT-56 Ab (RDL) Negative [employer] Reference Range: NegativeAnti-EJ Ab (RDL) Negative [facility] Reference Range: NegativeAnti-OJ Ab (RDL) Negative ESECF Reference Range: NegativeAnti-SRP Ab (RDL) Negative ESECF Reference Range: AybzgtocSuph-Jz-0 Ab (RDL) Negative [facility]SE[facility] Reference Range: LfvgxzzjHqsj-EQO-3sdubx Ab (RDL) <20 Units ESECF Reference Range: <90Mkgz-MOO-3 Ab (CADM-140)(RDL) <20 Units ESECF Reference Range: <60Jedi-KLB-3 (P140) Ab (RDL) Units ESECF Reference Range: .Test not performed due to an unexpected reagent outage.Please contact your route sales associate for moreinformation and further service options.Anti-SAE1 Ab, IgG (RDL) <20 Units ESECF Reference Range: <20Anti-PM/Scl-100 Ab (RDL) <20 Units ESECF Reference Range: <20Anti-Ku Ab (RDL) Negative ESECF Reference Range: OggapttqSyki-WK-G 52kD Ab, IgG (RDL) <20 Units ESECF Reference Range: <20Anti-U1 WHITE [employer]AR SYRUP OPERATOR Ab (RDL) <20 Units ESECF Reference Range: <20Anti-U2 WHITE [employer]GAR SYRUP OPERATOR Ab (RDL) Negative ESECF Reference Range: NegativeAnti-U3 WHITE SUGAR SYRUP OPERATOR (Fibrillarin)(RDL) Negative ESECF Reference Range: Negative Interpretation for Anti-Rose-1, Iclp-EYV-3zarej, Anti-MDA-5, Anti-NXP-2, Anti-SAE1, Anti-PM/Scl-100, Anti-SS-A 52 kD, Anti-U1 WHITE SUGAR SYRUP OPERATOR: Negative: <20 Weak Positive: 20 - 39 Moderate Positive: 40 - 80 Strong Positive: >80Performed at: [facility] - [facility] [address] [place], [place] [id number] Director: Latrell Damon MD, Phone: [id number] at: [id number] [place], [place] [id number] Director: Eros Rosales PhD, Phone: [phone] Performed By: #### L 3410.9998 ####[facility] [address] [place], [address] Basic Metabolic Profile (BMP )on 02-16-2025 Anion Gap Normal 5-15 [facility] Comment on above: Result Comment: Canc elled via OM: Order cancelled - Patient discharged Performed By: #### L 100.0100, L500.2500 ####[facility] [address] [place], [address] BUN Normal 4-19 [facility] Comment on above: Result Comment: Canc elled via OM: Order cancelled - Patient discharged Performed By: #### L 100.0100, L500.2500 ####[facility] [address] [place], [address] BUN/CRE Normal 10-20 [facility] Comment on above: Result Comment: Canc elled via OM: Order cancelled - Patient discharged Performed By: #### L 100.0100, L500.2500 ####[facility] [address] [place], [address] Calcium Normal 7.6-11.0 [facility] Comment on above: Result Comment: Canc elled via OM: Order cancelled - Patient discharged Performed By: #### L 100.0100, L500.2500 ####[facility] [address] [place], [address] Chloride Normal 96-108 [facility] Comment on above: Result Comment: Canc elled via OM: Order cancelled - Patient discharged Performed By: #### L 100.0100, L500.2500 ####[facility] [address] [place], [address] CO2 Normal 22.0-29.0 [facility] Comment on above: Result Comment: Canc elled via OM: Order cancelled - Patient discharged Performed By: #### L 100.0100, L500.2500 ####[facility] [address] [place], [address] CREAT,SERUM Normal 0.70-1.20 [facility] Comment on above: Result Comment: Canc elled via OM: Order cancelled - Patient discharged Performed By: #### L 100.0100, L500.2500 ####[facility] [address] [place], [address] eGFR Normal >60 [facility] Comment on above: Result Comment: Canc elled via OM: Order cancelled - Patient discharged Performed By: #### L 100.0100, L500.2500 ####[facility] [address] [place], [address] GLU Normal 70-99 [facility] Comment on above: Result Comment: Canc elled via OM: Order cancelled - Patient discharged Performed By: #### L 100.0100, L500.2500 ####[facility] [address] [place], [address] Potassium Normal 3.3-5.1 [facility] Comment on above: Result Comment: Canc elled via OM: Order cancelled - Patient discharged Performed By: #### L 100.0100, L500.2500 ####[facility] [address] [place], [address] Sodium Normal 133-145 [facility] Comment on above: Result Comment: Canc elled via OM: Order cancelled - Patient discharged Performed By: #### L 100.0100, L500.2500 ####[facility] [address] [place], [address] CBC W/Diff, Automatedon 03-2 Absolute Neut Normal 2.0-7.7 [facility] Comment on above: Result Comment: Canc elled via OM: Order cancelled - Patient discharged Performed By: #### L 100.0100, L500.2500 ####[facility] [address] [place], [address] HCT Normal 37-47 [facility] Comment on above: Result Comment: Canc elled via OM: Order cancelled - Patient discharged Performed By: #### L 100.0100, L500.2500 ####[facility] [address] [place], [address] HGB Normal 12.0-15.0 [facility] Comment on above: Result Comment: Canc elled via OM: Order cancelled - Patient discharged Performed By: #### L 100.0100, L500.2500 ####[facility] [address] [place], [address] MCH Normal 27.0-32.0 [facility] Comment on above: Result Comment: Canc elled via OM: Order cancelled - Patient discharged Performed By: #### L 100.0100, L500.2500 ####[facility] [address] [place], [address] MCHC Normal 32-36 [facility] Comment on above: Result Comment: Canc elled via OM: Order cancelled - Patient discharged Performed By: #### L 100.0100, L500.2500 ####[facility] [address] [place], [address] MCV Normal 81-99 [facility] Comment on above: Result Comment: Canc elled via OM: Order cancelled - Patient discharged Performed By: #### L 100.0100, L500.2500 ####[facility] [address] [place], [address] NEUT% Normal 47-70 [facility] Comment on above: Result Comment: Canc elled via OM: Order cancelled - Patient discharged Performed By: #### L 100.0100, L500.2500 ####[facility] [address] [place], [address] PLT Normal 150-450 [facility] Comment on above: Result Comment: Canc elled via OM: Order cancelled - Patient discharged Performed By: #### L 100.0100, L500.2500 ####[facility] [address] [place], [address] RBC Normal 4.2-5.4 [facility] Comment on above: Result Comment: Canc elled via OM: Order cancelled - Patient discharged Performed By: #### L 100.0100, L500.2500 ####[facility] [address] [place], [address] RDW CV Normal 11.6-14.6 [facility] Comment on above: Result Comment: Canc elled via OM: Order cancelled - Patient discharged Performed By: #### L 100.0100, L500.2500 ####[facility] [address] [place], [address] RDW SD Normal 35.1-43.9 [facility] Comment on above: Result Comment: Canc elled via OM: Order cancelled - Patient discharged Performed By: #### L 100.0100, L500.2500 ####[facility] [address] [place], [address] WBC Normal 4.4-11.0 [facility] Comment on above: Result Comment: Canc elled via OM: Order cancelled - Patient discharged Performed By: #### L 100.0100, L500.2500 ####[facility] [address] [place], [address] Absolute lymphocyte countOrd ered By: Scott Mcdowell on 02-12-2025 Lymphocytes Auto (Unsp spec) [#/Vol] 1.40 10*3/uL 0.83-4.51 [facility] Absolute neutrophil countOrd ered By: Scott Mcdowell on 02-12-2025 Neutrophils (Bld) [#/Vol] 6.7 10*3/uL 2.0-7.7 [facility] Anion gap in Serum or Plasma Ordered By: Scott Mcdowell on 02-12-2025 Anion gap [Moles/Vol] 11 mmol/L 5-15 [facility] Automated lymphocyte count a s percentage of total leukocytesOrdered By: Scott Mcdowell on 02-12-2025 Lymphocytes/100 WBC Auto (Unsp spec) 15.3 % Low 19-41 [facility] BUN/creatinine ratioOrdered By: Scott Jeremias on 02-12-2025 Urea nitrogen/Creatinine [Mass ratio] 20.5 mg/mg High 10-20 [facility] Basophil percentageOrdered B y: Scott Mcdowell on 02-12-2025 Basophils/100 WBC (Bld) 1.0 % 0-[address] [facility] Bilirubin, totalOrdered By: Scott Mcdowell on 02-12-2025 Bilirubin [Mass/Vol] 0.22 mg/dL 0.00-1.30 [facility] CBC W/Diff, Automatedon 01-27 Absolute Lymph 1.40 X10 3/uL Normal 0.83-4.51 [facility] Comment on above: Performed By: #### L 506.1001, L3890.6301, L100.0100, L501.9520, L500.4050 ####[facility] [address] [place], [address] Absolute Neut 6.7 X10 3/uL Normal 2.0-7.7 [facility] Comment on above: Performed By: #### L 506.1001, L3890.6301, L100.0100, L501.9520, L500.4050 ####[facility] [address] [place], [address] Basophils/100 WBC (Bld) 1.0 % Normal 0-[address] [facility] Comment on above: Performed By: #### L 506.1001, L3890.6301, L100.0100, L501.9520, L500.4050 ####[facility] [address] [place], [address] Eosinophils/100 WBC (Bld) 3.5 % Normal 0-5 [facility] Comment on above: Performed By: #### L 506.1001, L3890.6301, L100.0100, L501.9520, L500.4050 ####[facility] [address] [place], [address] Erythrocyte distribution width (RBC) [Ratio] 13.3 % Normal 11.6-14.6 [facility] Comment on above: Performed By: #### L 506.1001, L3890.6301, L100.0100, L501.9520, L500.4050 ####[facility] [address] [place], [address] Hematocrit (Bld) [Volume fraction] 38.3 % Normal 37-47 [facility] Comment on above: Performed By: #### L 506.1001, L3890.6301, L100.0100, L501.9520, L500.4050 ####[facility] [address] [place], [address] Hemoglobin (Bld) [Mass/Vol] 12.2 g/dL Normal 12.0-15.0 [facility] Comment on above: Performed By: #### L 506.1001, L3890.6301, L100.0100, L501.9520, L500.4050 ####[facility] [address] [place], [address] IG% 0.200 Normal 0.0-0.9 [facility] Comment on above: Result Comment: IG% - Immature Granulocytes (promyelocytes, myelocytes andmetamyelocytes) > 1% indicates that a LEFT SHIFT is Present. Performed By: #### L 506.1001, L3890.6301, L100.0100, L501.9520, L500.4050 ####[facility] [address] [place], [address] Lymphocytes/100 WBC (Bld) 15.3 % Low 19-41 [facility] Comment on above: Performed By: #### L 506.1001, L3890.6301, L100.0100, L501.9520, L500.4050 ####[facility] [address] [place], [address] MCH (RBC) [Entitic mass] 28.5 pg Normal 27.0-32.0 [facility] Comment on above: Performed By: #### L 506.1001, L3890.6301, L100.0100, L501.9520, L500.4050 ####[facility] [address] [place], [address] MCHC (RBC) [Mass/Vol] 31.9 g/dL Low 32-36 [facility] Comment on above: Performed By: #### L 506.1001, L3890.6301, L100.0100, L501.9520, L500.4050 ####[facility] [address] [place], [address] MCV (RBC) [Entitic vol] 89.5 fL Normal 81-99 [facility] Comment on above: Performed By: #### L 506.1001, L3890.6301, L100.0100, L501.9520, L500.4050 ####[facility] [address] [place], [address] Monocytes/100 WBC (Bld) 7.4 % Normal 0-[address] [facility] Comment on above: Performed By: #### L 506.1001, L3890.6301, L100.0100, L501.9520, L500.4050 ####[facility] [address] [place], [address] Neutrophils/100 WBC (Bld) 72.6 % High 47-70 [facility] Comment on above: Performed By: #### L 506.1001, L3890.6301, L100.0100, L501.9520, L500.4050 ####[facility] [address] [place], [address] Nucleated RBC (Bld) [#/Vol] 0 10*3/uL Normal 0-5 [facility] Comment on above: Performed By: #### L 506.1001, L3890.6301, L100.0100, L501.9520, L500.4050 ####[facility] [address] [place], [address] Platelet mean volume (Bld) [Entitic vol] 9.8 fL Normal 6.2-12.0 [facility] Comment on above: Performed By: #### L 506.1001, L3890.6301, L100.0100, L501.9520, L500.4050 ####[facility] [address] [place], [address] Platelets (Bld) [#/Vol] 472 10*3/uL High 150-450 [facility] Comment on above: Performed By: #### L 506.1001, L3890.6301, L100.0100, L501.9520, L500.4050 ####[facility] [address] [place], [address] RBC (Bld) [#/Vol] 4.28 10*6/uL Normal 4.2-5.4 [facility] Comment on above: Performed By: #### L 506.1001, L3890.6301, L100.0100, L501.9520, L500.4050 ####[facility] [address] [place], [address] RDW SD 43.5 fl Normal 35.1-43.9 [facility] Comment on above: Performed By: #### L 506.1001, L3890.6301, L100.0100, L501.9520, L500.4050 ####[facility] [address] [place], [address] WBC (Bld) [#/Vol] 9.2 10*3/uL Normal 4.4-11.0 [facility] Comment on above: Performed By: #### L 506.1001, L3890.6301, L100.0100, L501.9520, L500.4050 ####[facility] [address] [place], [address] Carbon dioxide, total [Moles /volume] in Central venous bloodOrdered By: Scott Mcdowell on 02-12-2025 CO2 [Moles/Vol] 25.3 mmol/L 21.0-32.0 [facility] Chloride assayOrdered By: Kem Mcdowell on 02-12-2025 Chloride [Moles/Vol] 102 mmol/L 98-108 [facility] Comprehensive Metabolic Prof ilon 02-12-2025 Albumin [Mass/Vol] 4.0 g/dL Normal 3.4-4.8 [facility] Comment on above: Performed By: #### L 506.1001, L3890.6301, L100.0100, L501.9520, L500.4050 ####[facility] [address] [place], [address] Albumin/Globulin [Mass ratio] 1.1 {ratio} Normal 0.9-2.4 [facility] Comment on above: Performed By: #### L 506.1001, L3890.6301, L100.0100, L501.9520, L500.4050 ####[facility] [address] [place], [address] ALK PHOS 125 U/L High 35-104 [facility] Comment on above: Performed By: #### L 506.1001, L3890.6301, L100.0100, L501.9520, L500.4050 ####[facility] [address] [place], [address] ALT [Catalytic activity/Vol] 15 U/L Normal <=34 [facility] Comment on above: Performed By: #### L 506.1001, L3890.6301, L100.0100, L501.9520, L500.4050 ####[facility] [address] [place], [address] AST [Catalytic activity/Vol] 19 U/L Normal <=31 [facility] Comment on above: Performed By: #### L 506.1001, L3890.6301, L100.0100, L501.9520, L500.4050 ####[facility] [address] [place], [address] Bilirubin [Mass/Vol] 0.22 mg/dL Normal 0.00-1.30 [facility] Comment on above: Performed By: #### L 506.1001, L3890.6301, L100.0100, L501.9520, L500.4050 ####[facility] [address] [place], [address] BUN/CRE 20.5 RATIO High 10-20 [facility] Comment on above: Performed By: #### L 506.1001, L3890.6301, L100.0100, L501.9520, L500.4050 ####[facility] [address] [place], [address] Calcium [Mass/Vol] 10.0 mg/dL Normal 7.6-11.0 [facility] Comment on above: Performed By: #### L 506.1001, L3890.6301, L100.0100, L501.9520, L500.4050 ####[facility] [address] [place], [address] Chloride [Moles/Vol] 102 mmol/L Normal 98-108 [facility] Comment on above: Performed By: #### L 506.1001, L3890.6301, L100.0100, L501.9520, L500.4050 ####[facility] [address] [place], [address] CO2 [Moles/Vol] 25.3 mmol/L Normal 21.0-32.0 [facility] Comment on above: Performed By: #### L 506.1001, L3890.6301, L100.0100, L501.9520, L500.4050 ####[facility] [address] [place], [address] Creatinine [Mass/Vol] 0.58 mg/dL Low 0.70-1.20 [facility] Comment on above: Performed By: #### L 506.1001, L3890.6301, L100.0100, L501.9520, L500.4050 ####[facility] [address] [place], [address] GAP 11 Normal 5-15 [facility] Comment on above: Performed By: #### L 506.1001, L3890.6301, L100.0100, L501.9520, L500.4050 ####[facility] [address] [place], [address] GFR/1.73 sq M.predicted among non-blacks MDRD (S/P/Bld) [Vol rate/Area] 97 mL/min/{1.73_m2} Normal >60 [facility] Comment on above: Result Comment: mL/m in/1.73m2 CKD-EPI Creatinine Equation (2020) Performed By: #### L 506.1001, L3890.6301, L100.0100, L501.9520, L500.4050 ####[facility] [address] [place], [address] Globulin (S) [Mass/Vol] 3.7 g/dL Normal 2.2-4.2 [facility] Comment on above: Performed By: #### L 506.1001, L3890.6301, L100.0100, L501.9520, L500.4050 ####[facility] [address] [place], [address] Glucose [Mass/Vol] 100 mg/dL High 70-99 [facility] Comment on above: Performed By: #### L 506.1001, L3890.6301, L100.0100, L501.9520, L500.4050 ####[facility] [address] [place], [address] Potassium [Moles/Vol] 4.3 mmol/L Normal 3.3-5.1 [facility] Comment on above: Performed By: #### L 506.1001, L3890.6301, L100.0100, L501.9520, L500.4050 ####[facility] [address] [place], [address] Sodium [Moles/Vol] 138 mmol/L Normal 133-145 [facility] Comment on above: Performed By: #### L 506.1001, L3890.6301, L100.0100, L501.9520, L500.4050 ####[facility] [address] [place], [address] T PROT 7.8 g/dL Normal 5.9-8.4 [facility] Comment on above: Performed By: #### L 506.1001, L3890.6301, L100.0100, L501.9520, L500.4050 ####[facility] [address] [place], [address] Urea nitrogen [Mass/Vol] 12 mg/dL Normal 4-19 [facility] Comment on above: Performed By: #### L 506.1001, L3890.6301, L100.0100, L501.9581, L500.4050 ####[facility] [address] [place], [place], [address] Eosinophil percentageOrdered By: Scott Mcdowell on 02-12-2025 Eosinophils/100 WBC (Bld) 3.5 % 0-5 [facility] Erythrocyte distribution wid th ratioOrdered By: [facility] on 02-12-2025 Erythrocyte distribution width (RBC) [Ratio] 13.3 % 11.6-14.6 [facility] Erythrocyte distribution wid th standard deviationOrdered By: Scott Mcdowell on 02-12-2025 Erythrocyte distribution width (RBC) [Entitic vol] 43.5 fL 35.1-43.9 [facility] Erythrocyte distribution width (RBC) [Ratio] 43.5 fl 35.1-43.9 [facility] GFR/1.73 sq M.predicted connor g non-blacks MDRD (S/P/Bld) [Vol rate/Area]Ordered By: Scott Mcdowell 02-12-2025 Estimated GFR (MDRD) Non-Af Amer 97 >60 [facility] Comment on above: mL/min/1.73m2 CKD-EP I Creatinine Equation (2020) Glomerular filtration rate ( GFR) estimation/1.73 sq m using serum, plasma, or whole bOrdered By: Scott Mcdowell 02-12-2025 GFR/1.73 sq M.predicted among non-blacks MDRD (S/P/Bld) [Vol rate/Area] 97 mL/min/{1.73_m2} >60 [facility] Comment on above: mL/min/1.73m2 CKD-EP I Creatinine Equation (2020) Hematocrit Auto (Bld) [Volum e fraction]Ordered By: Scott Mcdowell 02-12-2025 Hematocrit (Bld) [Volume fraction] 38.3 % 37-47 [facility] Hemoglobin measurementOrdere d By: Scott Mcdowell 02-12-2025 Hemoglobin (Bld) [Mass/Vol] 12.2 g/dL 12.0-15.0 [facility] Hepatitis C antibodyOrdered By: Scott Mcdowell on 02-12-2025 Hepatitis C Antibody Non-Reactive Nonreactive [facility] Comment on above: Reactive: Presumptiv e evidence of antibodies to HCV. Follow CDC recommendations for supplemental testing.Non-Reactive: Antibodies to HCV were not detected; does not exclude the possibility of exposure to HCVReactive Results are presumptive evidence of antibodies to HCV. Follow CDC recommendations for supplemental testing.Order confirmation testing: HCV Quant by PCR testing - HCVPCR lc#[id number] Non Reactive: < 0.8 Equivocal: >/= 0.8 to < 1.0 Reactive: >/= 1.0The CDC requires that a reactive/equivocal HCV antibody result be sent out for confirmation. HCV Quant by PCR testing. Immature granulocytes/100 WB C Auto (Bld)Ordered By: Scott Jeremias on 02-12-2025 Immature granulocytes/100 WBC (Bld) 0.200 % 0.0-0.9 [facility] Comment on above: IG% - Immature Granu locytes (promyelocytes, myelocytes and metamyelocytes) > 1% indicates that a LEFT SHIFT is Present. L3890.6301on 02-12-2025 Hepatitis C Ab Non-Reactive Normal Nonreactive [facility] Comment on above: Result Comment: Reac tive: Presumptive evidence of antibodies to HCV. [facility] for [facility].Non-Reactive: Antibodies to HCV were not detected; does notexclude the possibility of exposure to HCVReactive Results are presumptive evidence of antibodies toHCV. Follow CDC recommendations for supplemental testing.Order confirmation testing: HCV Quant by PCR testing -HCVPCR lc#[id number] Non Reactive: < 0.8 Equivocal: >/= 0.8 to < 1.0 Reactive: >/= 1.0The CDC requires that a reactive/equivocal HCV antibodyresult be sent out for confirmation. HCV Quant by PCRtesting. Performed By: #### L 506.1001, L3890.6301, L100.0100, L501.9520, L500.4050 ####[facility] [address] [place], [address] L506.1001on 02-12-2025 Vitamin D 25-OH 49.3 ng/mL Normal 30-100 [facility] Comment on above: Result Comment: Elva min D StatusDeficiency: <20 ng/mL (50nmol/L)Insufficiency: 20-30 ng/mL (50-75 nmol/L)Sufficiency: 30-100 ng/mL (75-250 nmol/L)Toxicity: >100 ng/mL (>250 nmol/L) Performed By: #### L 506.1001, L3890.6301, L100.0100, L501.9520, L500.4050 ####[facility] [address] [place], [address] Laboratory - Chemistry and C hemistry - challengeOrdered By: Scott Mcdowell on 02-12-2025 AST [Catalytic activity/Vol] 19 U/L <32 [facility] Lymphocytes Auto (Unsp spec) [#/Vol]Ordered By: Scott Mcdowell on 02-12-2025 Lymphocytes (Bld) [#/Vol] 1.40 10*3/uL 0.83-4.51 [facility] Lymphocytes/100 WBC Auto (Un sp spec)Ordered By: Scott Mcdowell on 02-12-2025 Lymphocytes/100 WBC (Bld) 15.3 % Low 19-41 [facility] MCV (mean corpuscular volume ) determinationOrdered By: Scott Mcdowell on 02-12-2025 MCV (RBC) [Entitic vol] 89.5 fL 81-[address] [facility] Mean corpuscular hemoglobin (MCH) determinationOrdered By: Scott Mcdowell on 02-12-2025 MCH (RBC) [Entitic mass] 28.5 pg 27.0-32.0 [facility] Mean corpuscular hemoglobin concentration (MCHC) determinationOrdered By: Scott Mcdowell 02-12-2025 MCHC (RBC) [Mass/Vol] 31.9 g/dL Low 32-36 [facility] Mean platelet volume determi nationOrdered By: Scott Mcdowell on 02-12-2025 Platelet mean volume (Bld) [Entitic vol] 9.8 fL 6.2-12.0 [facility] Monocyte percentageOrdered B y: Scott Mcdowell on 02-12-2025 Monocytes/100 WBC (Bld) 7.4 % 0-[address] [facility] Neutrophil percentageOrdered By: Scott Mcdowell on 02-12-2025 Neutrophils/100 WBC (Bld) 72.6 % High 47-70 [facility] No Panel InformationOrdered By: Scott Mcdowell on 02-12-2025 19 U/L <32 [facility] Nucleated red blood cell per centageOrdered By: Scott Mcdowell on 02-12-2025 Nucleated RBC/100 WBC (Bld) [Ratio] 0 % 0-5 [facility] Platelet countOrdered By: Kem Mcdowell on 02-12-2025 Platelets (Bld) [#/Vol] 472 10*3/uL High 150-450 [facility] Potassium (Unsp spec) [Mass/ Vol]Ordered By: Scott Mcdowell on 02-12-2025 Potassium [Moles/Vol] 4.3 mmol/L 3.3-5.1 [facility] Potassium measurement (mass/ volume)Ordered By: Scott Mcdowell on 02-12-2025 Potassium (Unsp spec) [Mass/Vol] 4.3 mmol/L 3.3-5.1 [facility] Pulmonary Visit Reporton Pulmonary Visit Report Normal [facility] RBC Auto (Bld) [#/Vol]Ordere d By: Scott Mcdowell on 02-12-2025 RBC (Bld) [#/Vol] 4.28 10*6/uL 4.2-5.4 [facility] Serum creatinine measurement (mass/volume)Ordered By: Scott Mcdowell on 02-12-2025 Creatinine [Mass/Vol] 0.58 mg/dL Low 0.70-1.20 [facility] Serum globulin measurementOr dered By: Scott Mcdowell on 02-12-2025 Globulin (S) [Mass/Vol] 3.7 g/dL 2.2-4.[address] [facility] Serum glucose measurement (m ass/volume)Ordered By: Scott Mcdowell on 02-12-2025 Glucose [Mass/Vol] 100 mg/dL High 70-99 [facility] Serum or plasma alanine lake otransferase (ALT) measurementOrdered By: Scott Mcdowell on 02-12-2025 ALT [Catalytic activity/Vol] 15 U/L <35 [facility] Serum or plasma albumin aury urement (mass/volume)Ordered By: Scott Mcdowell on 02-12-2025 Albumin [Mass/Vol] 4.0 g/dL 3.4-4.8 [facility] Serum or plasma albumin/glob ulin mass ratioOrdered By: Scott Mcdowell 02-12-2025 Albumin/Globulin [Mass ratio] 1.1 {ratio} 0.9-2.4 [facility] Serum or plasma alkaline frances sphatase measurementOrdered By: Scott Mcdowell on 02-12-2025 ALP [Catalytic activity/Vol] 125 U/L High 35-104 [facility] Serum or plasma calcium aury urement (mass/volume)Ordered By: Scott Mcdowell 02-12-2025 Calcium [Mass/Vol] 10.0 mg/dL 7.6-11.0 [facility] Serum or plasma urea nitroge n measurement (mass/volume)Ordered By: Scott Mcdowell 02-12-2025 Urea nitrogen [Mass/Vol] 12 mg/dL 4-19 [facility] Sodium levelOrdered By: Scott Mcdowell 02-12-2025 Sodium [Moles/Vol] 138 mmol/L 133-145 [facility] TSH DL <= 0.005 mIU/L QnOrde red By: Scott Mcdowell on 02-12-2025 Thyroid Stimulating Hormone (TSH) 1.020 uIU/mL 0.300-4.200 [facility] TSH Qn 1.020 uIU/mL 0.300-4.200 [facility] Thyroid Stim Hormone (TSH)on 02-12-2025 TSH 1.020 uIU/mL Normal 0.300-4.200 [facility] Comment on above: Performed By: #### L 506.1001, L3890.6301, L100.0100, L501.9520, L500.4050 ####[facility] [address] [place], [address] Total proteinOrdered By: Scott Mcdowell 02-12-2025 Protein [Mass/Vol] 7.8 g/dL 5.9-8.4 [facility] Vitamin D, 25-hydroxyOrdered By: Scott Mcdowell on 02-12-2025 Vitamin D 25-Hydroxy 49.3 ng/mL 30-100 [facility] Comment on above: Vitamin D StatusDefi ciency: <20 ng/mL (50nmol/L)Insufficiency: 20-30 ng/mL (50-75 nmol/L)Sufficiency: 30-100 ng/mL (75-250 nmol/L)Toxicity: >100 ng/mL (>250 nmol/L) White blood cell (WBC) count Ordered By: Scott Mcdowell on 02-12-2025 WBC (Bld) [#/Vol] 9.2 10*3/uL 4.4-11.0 [facility] Absolute lymphocyte countOrd ered By: Scott Mcdowell on 02-09-2025 Lymphocytes Auto (Unsp spec) [#/Vol] 1.04 10*3/uL 0.83-4.51 [facility] Absolute neutrophil countOrd ered By: Scott Mcdowell on 02-09-2025 Neutrophils (Bld) [#/Vol] 6.2 10*3/uL 2.0-7.7 [facility] Automated lymphocyte count a s percentage of total leukocytesOrdered By: Scott Mcdowell on 02-09-2025 Lymphocytes/100 WBC Auto (Unsp spec) 12.3 % Low 19-41 [facility] BUN/creatinine ratioOrdered By: Scott Mcdowell on 02-09-2025 Urea nitrogen/Creatinine [Mass ratio] 23.8 mg/mg High 09-17 [facility] Basic Metabolic Profile (BMP )on 02-09-2025 Anion gap [Moles/Vol] 11 mmol/L Normal 5-15 [facility] Comment on above: Performed By: #### L 500.2500, L100.0100 ####[facility] [address] [place], [address] BUN/CRE 23.8 RATIO High 09-17 [facility] Comment on above: Performed By: #### L 500.2500, L100.0100 ####[facility] [address] [place], [address] Calcium [Mass/Vol] 9.4 mg/dL Normal 7.6-11.0 [facility] Comment on above: Performed By: #### L 500.2500, L100.0100 ####[facility] [address] [place], [address] Chloride [Moles/Vol] 103 mmol/L Normal 96-108 [facility] Comment on above: Performed By: #### L 500.2500, L100.0100 ####[facility] [address] [place], [address] CO2 [Moles/Vol] 25.4 mmol/L Normal 22.0-29.0 [facility] Comment on above: Performed By: #### L 500.2500, L100.0100 ####[facility] [address] [place], [address] Creatinine [Mass/Vol] 0.61 mg/dL Low 0.70-1.20 [facility] Comment on above: Performed By: #### L 500.2500, L100.0100 ####[facility] [address] [place], [address] ECRCL 56.63 ml/min Normal 50-250 [facility] Comment on above: Performed By: #### L 500.2500, L100.0100 ####[facility] [address] [place], [address] GFR/1.73 sq M.predicted among non-blacks MDRD (S/P/Bld) [Vol rate/Area] 96 mL/min/{1.73_m2} Normal >60 [facility] Comment on above: Result Comment: mL/m in/1.73m2 CKD-EPI Creatinine Equation (2020) Performed By: #### L 500.2500, L100.0100 ####[facility] [address] [place], [address] Glucose [Mass/Vol] 91 mg/dL Normal 70-99 [facility] Comment on above: Performed By: #### L 500.2500, L100.0100 ####[facility] [address] [place], [address] Potassium [Moles/Vol] 4.2 mmol/L Normal 3.3-5.1 [facility] Comment on above: Performed By: #### L 500.2500, L100.0100 ####[facility] [address] [place], [address] Sodium [Moles/Vol] 140 mmol/L Normal 133-145 [facility] Comment on above: Performed By: #### L 500.2500, L100.0100 ####[facility] [address] [place], [address] Urea nitrogen [Mass/Vol] 15 mg/dL Normal 4-19 [facility] Comment on above: Performed By: #### L 500.2500, L100.0100 ####[facility] [address] [place], [address] Basophil percentageOrdered B y: Scott Mcdowell on 02-09-2025 Basophils/100 WBC (Bld) 1.3 % High 0-[address] [facility] CBC W/Diff, Automatedon 01-27 Absolute Lymph 1.04 X10 3/uL Normal 0.83-4.51 [facility] Comment on above: Performed By: #### L 500.2500, L100.0100 ####[facility] [address] [place], [address] Absolute Neut 6.2 X10 3/uL Normal 2.0-7.7 [facility] Comment on above: Performed By: #### L 500.2500, L100.0100 ####[facility] [address] [place], [address] Basophils/100 WBC (Bld) 1.3 % High 0-[address] [facility] Comment on above: Performed By: #### L 500.2500, L100.0100 ####[facility] [address] [place], [address] Eosinophils/100 WBC (Bld) 5.9 % High 0-5 [facility] Comment on above: Performed By: #### L 500.2500, L100.0100 ####[facility] [address] [place], [address] Erythrocyte distribution width (RBC) [Ratio] 13.2 % Normal 11.6-14.6 [facility] Comment on above: Performed By: #### L 500.2500, L100.0100 ####[facility] [address] [place], [address] Hematocrit (Bld) [Volume fraction] 35.0 % Low 37-47 [facility] Comment on above: Performed By: #### L 500.2500, L100.0100 ####[facility] [address] [place], [address] Hemoglobin (Bld) [Mass/Vol] 10.9 g/dL Low 12.0-15.0 [facility] Comment on above: Performed By: #### L 500.2500, L100.0100 ####[facility] [address] [place], [address] IG% 0.400 Normal 0.0-0.9 [facility] Comment on above: Result Comment: IG% - Immature Granulocytes (promyelocytes, myelocytes andmetamyelocytes) > 1% indicates that a LEFT SHIFT is Present. Performed By: #### L 500.2500, L100.0100 ####[facility] [address] [place], [address] Lymphocytes/100 WBC (Bld) 12.3 % Low 19-41 [facility] Comment on above: Performed By: #### L 500.2500, L100.0100 ####[facility] [address] [place], [address] MCH (RBC) [Entitic mass] 28.5 pg Normal 27.0-32.0 [facility] Comment on above: Performed By: #### L 500.2500, L100.0100 ####[facility] [address] [place], [address] MCHC (RBC) [Mass/Vol] 31.1 g/dL Low 32-36 [facility] Comment on above: Performed By: #### L 500.2500, L100.0100 ####[facility] [address] [place], [address] MCV (RBC) [Entitic vol] 91.4 fL Normal 81-[address] [facility] Comment on above: Performed By: #### L 500.2500, L100.0100 ####[facility] [address] [place], [address] Monocytes/100 WBC (Bld) 7.1 % Normal 0-10 [facility] Comment on above: Performed By: #### L 500.2500, L100.0100 ####[facility] [address] [place], [address] Neutrophils/100 WBC (Bld) 73.0 % High 47-70 [facility] Comment on above: Performed By: #### L 500.2500, L100.0100 ####[facility] [address] [place], [address] Nucleated RBC (Bld) [#/Vol] 0 10*3/uL Normal 0-5 [facility] Comment on above: Performed By: #### L 500.2500, L100.0100 ####[facility] [address] [place], [address] Platelet mean volume (Bld) [Entitic vol] 9.6 fL Normal 6.2-12.0 [facility] Comment on above: Performed By: #### L 500.2500, L100.0100 ####[facility] [address] [place], [address] Platelets (Bld) [#/Vol] 521 10*3/uL High 150-450 [facility] Comment on above: Performed By: #### L 500.2500, L100.0100 ####[facility] [address] [place], [address] RBC (Bld) [#/Vol] 3.83 10*6/uL Low 4.2-5.4 [facility] Comment on above: Performed By: #### L 500.2500, L100.0100 ####[facility] [address] [place], [address] RDW SD 44.2 fl High 35.1-43.9 [facility] Comment on above: Performed By: #### L 500.2500, L100.0100 ####[facility] [address] [place], [address] WBC (Bld) [#/Vol] 8.4 10*3/uL Normal 4.4-11.0 [facility] Comment on above: Performed By: #### L 500.2500, L100.0100 ####[facility] [address] [place], [address] Carbon dioxide measurementOr dered By: Scott Mcdowell on 02-09-2025 CO2 [Moles/Vol] 25.4 mmol/L 22.0-29.0 [facility] Chloride measurementOrdered By: Scott Mcdowell on 02-09-2025 Chloride [Moles/Vol] 103 mmol/L 96-108 [facility] Eosinophil percentageOrdered By: Scott Mcdowell on 02-09-2025 Eosinophils/100 WBC (Bld) 5.9 % High 0-5 [facility] Erythrocyte distribution wid th ratioOrdered By: Scott Mcdowell 02-09-2025 Erythrocyte distribution width (RBC) [Ratio] 13.2 % 11.6-14.6 [facility] Erythrocyte distribution wid th standard deviationOrdered By: Scott Mcdowell on 02-09-2025 Erythrocyte distribution width (RBC) [Entitic vol] 44.2 fL High 35.1-43.9 [facility] Erythrocyte distribution width (RBC) [Ratio] 44.2 fl High 35.1-43.9 [facility] Estimation of creatinine luis aranceOrdered By: Scott Mcdowell on 02-09-2025 Estimated Creatinine Clearance Calc 56.63 ml/min 50-250 [facility] GFR/1.73 sq M.predicted connor g non-blacks MDRD (S/P/Bld) [Vol rate/Area]Ordered By: Scott Mcdowell 02-09-2025 Estimated GFR (MDRD) Non-Af Amer 96 >60 [facility] Comment on above: mL/min/1.73m2 CKD-EP I Creatinine Equation (2020) Glomerular filtration rate ( GFR) estimation/1.73 sq m using serum, plasma, or whole bOrdered By: Scott Mcdowell 02-09-2025 GFR/1.73 sq M.predicted among non-blacks MDRD (S/P/Bld) [Vol rate/Area] 96 mL/min/{1.73_m2} >60 [facility] Comment on above: mL/min/1.73m2 CKD-EP I Creatinine Equation (2020) Hematocrit Auto (Bld) [Volum e fraction]Ordered By: Scott Mcdowell 02-09-2025 Hematocrit (Bld) [Volume fraction] 35.0 % Low 37-47 [facility] Hemoglobin measurementOrdere d By: Scott Mcdowell 02-09-2025 Hemoglobin (Bld) [Mass/Vol] 10.9 g/dL Low 12.0-15.0 [facility] Immature granulocytes/100 WB C Auto (Bld)Ordered By: Scott Mcdowell 02-09-2025 Immature granulocytes/100 WBC (Bld) 0.400 % 0.0-0.9 [facility] Comment on above: IG% - Immature Granu locytes (promyelocytes, myelocytes and metamyelocytes) > 1% indicates that a LEFT SHIFT is Present. Lymphocytes Auto (Unsp spec) [#/Vol]Ordered By: Scott Mcdowell on 02-09-2025 Lymphocytes (Bld) [#/Vol] 1.04 10*3/uL 0.83-4.51 [facility] Lymphocytes/100 WBC Auto (Un sp spec)Ordered By: Scott Mcdowell on 02-09-2025 Lymphocytes/100 WBC (Bld) 12.3 % Low 19-41 [facility] MCV (mean corpuscular volume ) determinationOrdered By: Scott Mcdowell on 02-09-2025 MCV (RBC) [Entitic vol] 91.4 fL 81-99 [facility] Mean corpuscular hemoglobin (MCH) determinationOrdered By: Scott Mcdowell on 02-09-2025 MCH (RBC) [Entitic mass] 28.5 pg 27.0-32.0 [facility] Mean corpuscular hemoglobin concentration (MCHC) determinationOrdered By: Scott Mcdowell on 02-09-2025 MCHC (RBC) [Mass/Vol] 31.1 g/dL Low 32-36 [facility] Mean platelet volume determi nationOrdered By: Scott Mcdowell on 02-09-2025 Platelet mean volume (Bld) [Entitic vol] 9.6 fL 6.2-12.0 [facility] Monocyte percentageOrdered B y: Scott Segoviaok on 02-09-2025 Monocytes/100 WBC (Bld) 7.1 % 0-[address] [facility] Neutrophil percentageOrdered By: Scott Mcdowell on 02-09-2025 Neutrophils/100 WBC (Bld) 73.0 % High 47-70 [facility] Nucleated red blood cell per centageOrdered By: Scott Mcdowell on 02-09-2025 Nucleated RBC/100 WBC (Bld) [Ratio] 0 % 0-5 [facility] Platelet countOrdered By: Kem Mcdowell on 02-09-2025 Platelets (Bld) [#/Vol] 521 10*3/uL High 150-450 [facility] RBC Auto (Bld) [#/Vol]Ordere d By: Scott Mcdowell on 02-09-2025 RBC (Bld) [#/Vol] 3.83 10*6/uL Low 4.2-5.4 [facility] Serum creatinine measurement (mass/volume)Ordered By: Scott Mcdowell on 02-09-2025 Creatinine [Mass/Vol] 0.61 mg/dL Low 0.70-1.20 [facility] Serum glucose measurement (m ass/volume)Ordered By: Scott Mcdowell on 02-09-2025 Glucose [Mass/Vol] 91 mg/dL 70-99 [facility] Serum or plasma anion gap de termination (moles/volume)Ordered By: Scott Mcdowell on 02-09-2025 Anion gap [Moles/Vol] 11 mmol/L 5-15 [facility] Serum or plasma calcium aury urement (mass/volume)Ordered By: Scott Mcdowell on 02-09-2025 Calcium [Mass/Vol] 9.4 mg/dL 7.6-11.0 [facility] Serum or plasma potassium me asurementOrdered By: Scott Mcdowell on 02-09-2025 Potassium [Moles/Vol] 4.2 mmol/L 3.3-5.1 [facility] Serum or plasma sodium measu rement (moles/volume)Ordered By: Scott Mcdowell on 02-09-2025 Sodium [Moles/Vol] 140 mmol/L 133-145 [facility] Serum or plasma urea nitroge n measurement (mass/volume)Ordered By: Scott Mcdowell on 02-09-2025 Urea nitrogen [Mass/Vol] 15 mg/dL - [facility] White blood cell (WBC) count Ordered By: Scott Mcdowell on 02-09-2025 WBC (Bld) [#/Vol] 8.4 10*3/uL 4.4-11.0 [facility] CTA Chest W/WO Contraston CTA Chest W/WO Contrast Normal [facility] Venous Duplex US, Unilateral on 02-07-2025 Venous Duplex US, Unilateral Normal [facility] Venous duplex ultrasound rep ortOrdered By: Raymundo Petty on 02-07-2025 US Vein [facility] [address] [place] [address] Venous Duplex US, Unilateral 02/07/25 1306 MR#: [id number] Acct: [id number] Name: EDSON COOK Rep #:[id number] : 1955 69 From: Raymundo Stephens Attending Dr: Dr. Scott Mcdowell MD Status: REG CLI Ordering Dr: Scott Mcdowell MD Date: 11/22 Location: [facility] Sex: F C Admitted: Reason For Study Reason For Study: Left leg swelling RIGHT LEFT CFV is compressible, spontaneous, phasic, competent GSV is normal. and demonstrates normal augmentation. CFV is compressible, spontaneous, phasic, competent, Procedure and demonstrates normal augmentation. This is a venous duplex using B-mode, color flow and FV is compressible, spontaneous, phasic, competent spectral Doppler. and demonstrates normal augmentation. Exam performed portable in patient room. POP V is compressible, spontaneous, phasic, competent A preliminary report was called and/or faxed to TCU and demonstrates normal augmentation. RN. T/P Trunk is compressible. PTV is compressible. LT PerV is compressible. VL/Venous Duplex US, Unilateral Interpretation Summary Deep veins of the left lower extremity are patent and compressible segmentally. There is no evidence of left lower extremity deep vein thrombosis. The left great saphenous vein appears patent andcompressible segmentally. Ordering Physician: Scott Mcdowell Chi Referring Physician: Lori Dale Performed By: Marlyn Nieto RVEstefany 02/07/25 1549 Date _ Raymundo Petty MD CC: BRONZE PLATER-C Lori Dale; Dr. Scott Mcdowell MD ~ Date Dictated: 02/07/25 1306 Date Transcribed: 02/07/25 1549 Mat Machine Tender: Signed [facility] Work Phone: Basic Metabolic Profile (BMP )on 02-02-2025 Anion gap [Moles/Vol] 11 mmol/L Normal 5-15 [facility] Comment on above: Performed By: #### L 100.0100, L500.2500 ####[facility] [address] [place], [address] BUN/CRE 25.7 RATIO High 10-20 [facility] Comment on above: Performed By: #### L 100.0100, L500.2500 ####[facility] [address] [place], [address] Calcium [Mass/Vol] 9.3 mg/dL Normal 7.6-11.0 [facility] Comment on above: Performed By: #### L 100.0100, L500.2500 ####[facility] [address] [place], [address] Chloride [Moles/Vol] 104 mmol/L Normal 96-108 [facility] Comment on above: Performed By: #### L 100.0100, L500.2500 ####[facility] [address] [place], [address] CO2 [Moles/Vol] 25.0 mmol/L Normal 22.0-29.0 [facility] Comment on above: Performed By: #### L 100.0100, L500.2500 ####[facility] [address] [place], [address] Creatinine [Mass/Vol] 0.51 mg/dL Low 0.70-1.20 [facility] Comment on above: Performed By: #### L 100.0100, L500.2500 ####[facility] [address] [place], [address] ECRCL 57.13 ml/min Normal 50-250 [facility] Comment on above: Performed By: #### L 100.0100, L500.2500 ####[facility] [address] [place], [address] GFR/1.73 sq M.predicted among non-blacks MDRD (S/P/Bld) [Vol rate/Area] 100 mL/min/{1.73_m2} Normal >60 [facility] Comment on above: Result Comment: mL/m in/1.73m2 CKD-EPI Creatinine Equation (2020) Performed By: #### L 100.0100, L500.2500 ####[facility] [address] [place], [address] Glucose [Mass/Vol] 102 mg/dL High 70-99 [facility] Comment on above: Performed By: #### L 100.0100, L500.2500 ####[facility] [address] [place], [address] Potassium [Moles/Vol] 4.5 mmol/L Normal 3.3-5.1 [facility] Comment on above: Performed By: #### L 100.0100, L500.2500 ####[facility] [address] [place], [address] Sodium [Moles/Vol] 140 mmol/L Normal 133-145 [facility] Comment on above: Performed By: #### L 100.0100, L500.2500 ####[facility] [address] [place], [address] Urea nitrogen [Mass/Vol] 13 mg/dL Normal 4-19 [facility] Comment on above: Performed By: #### L 100.0100, L500.2500 ####[facility] [address] [place], [address] CBC W/Diff, Automatedon 03-0 Absolute Lymph 1.29 X10 3/uL Normal 0.83-4.51 [facility] Comment on above: Performed By: #### L 100.0100, L500.2500 ####[facility] [address] [place], [address] Absolute Neut 5.2 X10 3/uL Normal 2.0-7.7 [facility] Comment on above: Performed By: #### L 100.0100, L500.2500 ####[facility] [address] [place], [address] Basophils/100 WBC (Bld) 1.1 % High 0-[address] [facility] Comment on above: Performed By: #### L 100.0100, L500.2500 ####[facility] [address] [place], [address] Eosinophils/100 WBC (Bld) 6.1 % High 0-5 [facility] Comment on above: Performed By: #### L 100.0100, L500.2500 ####[facility] [address], [address] Erythrocyte distribution width (RBC) [Ratio] 13.2 % Normal 11.6-14.6 [facility] Comment on above: Performed By: #### L 100.0100, L500.2500 ####[facility] [address] [place], [address] Hematocrit (Bld) [Volume fraction] 32.8 % Low 37-47 [facility] Comment on above: Performed By: #### L 100.0100, L500.2500 ####[facility] [address] [place], [address] Hemoglobin (Bld) [Mass/Vol] 10.4 g/dL Low 12.0-15.0 [facility] Comment on above: Performed By: #### L 100.0100, L500.2500 ####[facility] [address] [place], [address] IG% 1.200 High 0.0-0.9 [facility] Comment on above: Result Comment: IG% - Immature Granulocytes (promyelocytes, myelocytes andmetamyelocytes) > 1% indicates that a LEFT SHIFT is Present. Performed By: #### L 100.0100, L500.2500 ####[facility] [address] [place], [address] Lymphocytes/100 WBC (Bld) 16.1 % Low 19-41 [facility] Comment on above: Performed By: #### L 100.0100, L500.2500 ####[facility] [address] [place], [address] MCH (RBC) [Entitic mass] 28.6 pg Normal 27.0-32.0 [facility] Comment on above: Performed By: #### L 100.0100, L500.2500 ####[facility] [address] [place], [address] MCHC (RBC) [Mass/Vol] 31.7 g/dL Low 32-36 [facility] Comment on above: Performed By: #### L 100.0100, L500.2500 ####[facility] [address] [place], [address] MCV (RBC) [Entitic vol] 90.1 fL Normal 81-99 [facility] Comment on above: Performed By: #### L 100.0100, L500.2500 ####[facility] [address] [place], [address] Monocytes/100 WBC (Bld) 10.2 % High 0-[address] [facility] Comment on above: Performed By: #### L 100.0100, L500.2500 ####[facility] [address] [place], [address] Neutrophils/100 WBC (Bld) 65.3 % Normal 47-70 [facility] Comment on above: Performed By: #### L 100.0100, L500.2500 ####[facility] [address] [place], [address] Nucleated RBC (Bld) [#/Vol] 0 10*3/uL Normal 0-5 [facility] Comment on above: Performed By: #### L 100.0100, L500.2500 ####[facility] [address] [place], [address] Platelet mean volume (Bld) [Entitic vol] 9.3 fL Normal 6.2-12.0 [facility] Comment on above: Performed By: #### L 100.0100, L500.2500 ####[facility] [address] [place], [address] Platelets (Bld) [#/Vol] 520 10*3/uL High 150-450 [facility] Comment on above: Performed By: #### L 100.0100, L500.2500 ####[facility] [address] [place], [address] RBC (Bld) [#/Vol] 3.64 10*6/uL Low 4.2-5.4 [facility] Comment on above: Performed By: #### L 100.0100, L500.2500 ####[facility] [address] [place], [address] RDW SD 43.8 fl Normal 35.1-43.9 [facility] Comment on above: Performed By: #### L 100.0100, L500.2500 ####[facility] [address] [place], [address] WBC (Bld) [#/Vol] 8.0 10*3/uL Normal 4.4-11.0 [facility] Comment on above: Performed By: #### L 100.0100, L500.2500 ####[facility] [address] [place], [address] L3410.9998on 01-31-2025 [facility]. COMMENT Normal . [facility] Comment on above: Order Comment: [id number] 0HYPERSENSTIVITY PNEUMONITIS MI Result Comment: Test Ordered: [id number] Hypersensitivity PneumonitisAspergillus fumigatus IgG Negative BN Reference Range: NegativeMicropolyspora faeni IgG Negative BN Reference Range: NegativeThermoactinomyces vulgaris IgG Negative BN Reference Range: NegativeAureobasidium pullulans IgG Negative BN Reference Range: NegativeThermoactinomyces sacchari IgG Negative BN Reference Range: NegativePigeon Serum IgG Negative BN Reference Range: NegativePerformed at: [facility] Lab[address] [id number] Director: Elliot Hester MD, Phone: [phone] at: [facility]Asc[facility] [place], [place] [id number] Director: Eros Rosalse PhD, Phone: [phone] Performed By: #### L 3100.5450, L3300.1200, L4600.0100, L3410.9998, L505.7010 ####[facility] [address] [place], [place], [id number] Culture, Blood (WB)on 2024 CUB Blood cultures x2, f rom two different sites No growth in 5 days. Normal [facility] Comment on above: Performed By: #### M 200.1000, L100.0100, L500.4050, L503.6005, L300.3900, L300.4310 ####[facility] [address] [place], [place], [address] HH, Hemoglobin AND Hematocri ton 01-29-2025 Hematocrit (Bld) [Volume fraction] 31.1 % Low 37-47 [facility] Comment on above: Performed By: #### L 100.0600 ####[facility] [address] [place], [place], [address] Hemoglobin (Bld) [Mass/Vol] 10.0 g/dL Low 12.0-15.0 [facility] Comment on above: Performed By: #### L 100.0600 ####[facility] [address] [place], [address] Basic Metabolic Profile (BMP )on 01-27-2025 Anion gap [Moles/Vol] 10 mmol/L Normal 5-15 [facility] Comment on above: Performed By: #### L 500.2500, L100.0100 ####[facility] [address] [place], [address] BUN/CRE 32.1 RATIO High 10-20 [facility] Comment on above: Performed By: #### L 500.2500, L100.0100 ####[facility] [address] [place], [address] Calcium [Mass/Vol] 8.6 mg/dL Normal 7.6-11.0 [facility] Comment on above: Performed By: #### L 500.2500, L100.0100 ####[facility] [address] [place], [address] Chloride [Moles/Vol] 100 mmol/L Normal 96-108 [facility] Comment on above: Performed By: #### L 500.2500, L100.0100 ####[facility] [address] [place], [address] CO2 [Moles/Vol] 26.2 mmol/L Normal 22.0-29.0 [facility] Comment on above: Performed By: #### L 500.2500, L100.0100 ####[facility] [address] [place], [address] Creatinine [Mass/Vol] 0.41 mg/dL Low 0.70-1.20 [facility] Comment on above: Performed By: #### L 500.2500, L100.0100 ####[facility] [address] [place], [address] ECRCL 58.28 ml/min Normal [facility] Comment on above: Performed By: #### L 500.2500, L100.0100 ####[facility] [address], [address] GFR/1.73 sq M.predicted among non-blacks MDRD (S/P/Bld) [Vol rate/Area] 105 mL/min/{1.73_m2} Normal >60 [facility] Comment on above: Result Comment: mL/m in/1.73m2 CKD-EPI Creatinine Equation (2020) Performed By: #### L 500.2500, L100.0100 ####[facility] [address] [place], [address] Glucose [Mass/Vol] 99 mg/dL Normal 70-99 [facility] Comment on above: Performed By: #### L 500.2500, L100.0100 ####[facility] [address] [place], [address] Potassium [Moles/Vol] 3.4 mmol/L Normal 3.3-5.1 [facility] Comment on above: Performed By: #### L 500.2500, L100.0100 ####[facility] [address] [place], [address] Sodium [Moles/Vol] 136 mmol/L Normal 133-145 [facility] Comment on above: Performed By: #### L 500.2500, L100.0100 ####[facility] [address], [address] Urea nitrogen [Mass/Vol] 13 mg/dL Normal 4-19 [facility] Comment on above: Performed By: #### L 500.2500, L100.0100 ####[facility] [address] [place], [address] CBC W/Diff, Automatedon 03-0 Absolute Lymph 1.11 X10 3/uL Normal 0.83-4.51 [facility] Comment on above: Performed By: #### L 500.2500, L100.0100 ####[facility] [address] [place], [address] Absolute Neut 8.0 X10 3/uL High 2.0-7.7 [facility] Comment on above: Performed By: #### L 500.2500, L100.0100 ####[facility] [address] [place], [address] Basophils/100 WBC (Bld) 0.5 % Normal 0-[address] [facility] Comment on above: Performed By: #### L 500.2500, L100.0100 ####[facility] [address] [place], [address] Eosinophils/100 WBC (Bld) 2.5 % Normal 0-5 [facility] Comment on above: Performed By: #### L 500.2500, L100.0100 ####[facility] [address] [place], [address] Erythrocyte distribution width (RBC) [Ratio] 12.8 % Normal 11.6-14.6 [facility] Comment on above: Performed By: #### L 500.2500, L100.0100 ####[facility] [address] [place], [address] Hematocrit (Bld) [Volume fraction] 30.3 % Low 37-47 [facility] Comment on above: Performed By: #### L 500.2500, L100.0100 ####[facility] [address] [place], [address] Hemoglobin (Bld) [Mass/Vol] 9.8 g/dL Low 12.0-15.0 [facility] Comment on above: Performed By: #### L 500.2500, L100.0100 ####[facility] [address] [place], [address] IG% 0.400 Normal 0.0-0.9 [facility] Comment on above: Result Comment: IG% - Immature Granulocytes (promyelocytes, myelocytes andmetamyelocytes) > 1% indicates that a LEFT SHIFT is Present. Performed By: #### L 500.2500, L100.0100 ####[facility] [address] [place], [address] Lymphocytes/100 WBC (Bld) 10.3 % Low 19-41 [facility] Comment on above: Performed By: #### L 500.2500, L100.0100 ####[facility] [address] [place], [address] MCH (RBC) [Entitic mass] 28.6 pg Normal 27.0-32.0 [facility] Comment on above: Performed By: #### L 500.2500, L100.0100 ####[facility] [address] [place], [address] MCHC (RBC) [Mass/Vol] 32.3 g/dL Normal 32-36 [facility] Comment on above: Performed By: #### L 500.2500, L100.0100 ####[facility] [address] [place], [address] MCV (RBC) [Entitic vol] 88.3 fL Normal 81-99 [facility] Comment on above: Performed By: #### L 500.2500, L100.0100 ####[facility] [address] [place], [address] Monocytes/100 WBC (Bld) 11.9 % High 0-[address] [facility] Comment on above: Performed By: #### L 500.2500, L100.0100 ####[facility] [address] [place], [address] Neutrophils/100 WBC (Bld) 74.4 % High 47-70 [facility] Comment on above: Performed By: #### L 500.2500, L100.0100 ####[facility] [address] [place], [address] Nucleated RBC (Bld) [#/Vol] 0 10*3/uL Normal 0-5 [facility] Comment on above: Performed By: #### L 500.2500, L100.0100 ####[facility] [address] [place], [address] Platelet mean volume (Bld) [Entitic vol] 9.8 fL Normal 6.2-12.0 [facility] Comment on above: Performed By: #### L 500.2500, L100.0100 ####[facility] [address] [place], [address] Platelets (Bld) [#/Vol] 270 10*3/uL Normal 150-450 [facility] Comment on above: Performed By: #### L 500.2500, L100.0100 ####[facility] [address] [place], [address] RBC (Bld) [#/Vol] 3.43 10*6/uL Low 4.2-5.4 [facility] Comment on above: Performed By: #### L 500.2500, L100.0100 ####[facility] [address] [place], [address] RDW SD 41.4 fl Normal 35.1-43.9 [facility] Comment on above: Performed By: #### L 500.2500, L100.0100 ####[facility] [address] [place], [address] WBC (Bld) [#/Vol] 10.7 10*3/uL Normal 4.4-11.0 [facility] Comment on above: Performed By: #### L 500.2500, L100.0100 ####[facility] [address] [place], [address] QUITA w/ Reflex Mult Confirmon 01-26-2025 ANTI-DNA (DS)AB TNP Normal [facility] Comment on above: Performed By: #### L 3100.5450, L3300.1200, L4600.0100, L3410.9998, L505.7010 ####[facility] [address] [place], [address] ANTISCLERODERM TNP Normal [facility] Comment on above: Performed By: #### L 3100.5450, L3300.1200, L4600.0100, L3410.9998, L505.7010 ####[facility] [address] [place], [address] ANCAon 01-26-2025 Atypical pANCA <1:20 Normal Neg:<1:20 [facility] Comment on above: Result Comment: The atypical pANCA pattern has been observed in asignificant percentage of patients with ulcerative colitis,primary sclerosing cholangitis and autoimmune hepatitis. Performed By: #### L 3100.5450, L3300.1200, L4600.0100, L3410.9998, L505.7010 ####[facility] [address] [place], [address] Cytoplasmic Ab <1:20 Normal Neg:<1:20 [facility] Comment on above: Performed By: #### L 3100.5450, L3300.1200, L4600.0100, L3410.9998, L505.7010 ####[facility] [address] [place], [address] Perinuclear Ab. <1:20 Normal Neg:<1:20 [facility] Comment on above: Result Comment: The presence of positive fluorescence exhibiting P-ANCA orC-ANCA patterns alone is not specific for the diagnosis ofWegener's Granulomatosis (WG) or microscopic polyangiitis.Decisions about treatment should not be based solely onANCA IFA results. The [employer] AN[employer] Consensusrecommends follow up testing of positive sera with both MI-3 and MPO-ANCA enzyme immunoassays. As many as 5% serumsamples are positive only by EIA. Ref. AM J Clin Wyabzq0359;111:507-513. Performed By: #### L 3100.5450, L3300.1200, L4600.0100, L3410.9998, L505.7010 ####[facility] [address] [place], [address] Absolute lymphocyte countOrd ered By: Lori Matthews on 01-26-2025 Lymphocytes Auto (Unsp spec) [#/Vol] 0.66 10*3/uL Low 0.83-4.51 [facility] Absolute neutrophil countOrd ered By: Lori Matthews on 01-26-2025 Neutrophils (Bld) [#/Vol] 12.2 10*3/uL High 2.0-7.7 [facility] Automated lymphocyte count a s percentage of total leukocytesOrdered By: Lori Matthews on 01-26-2025 Lymphocytes/100 WBC Auto (Unsp spec) 4.6 % Low 19-41 [facility] BUN/creatinine ratioOrdered By: Lori Matthews on 01-26-2025 Urea nitrogen/Creatinine [Mass ratio] 30.2 mg/mg High 10- [facility] Basic Metabolic Profile (BMP )on 01-26-2025 Anion gap [Moles/Vol] 12 mmol/L Normal 5-15 [facility] Comment on above: Performed By: #### L 100.0100, L500.2500 ####[facility] [address] [place], [place], [id number] BUN/CRE 30.2 RATIO High - [facility] Comment on above: Performed By: #### L 100.0100, L500.2500 ####[facility] [address] [place], [address] Calcium [Mass/Vol] 8.8 mg/dL Normal 7.6-11.0 [facility] Comment on above: Performed By: #### L 100.0100, L500.2500 ####[facility] [address] [place], [address] Chloride [Moles/Vol] 97 mmol/L Normal 96-108 [facility] Comment on above: Performed By: #### L 100.0100, L500.2500 ####[facility] [address] [place], [address] CO2 [Moles/Vol] 24.8 mmol/L Normal 22.0-29.0 [facility] Comment on above: Performed By: #### L 100.0100, L500.2500 ####[facility] [address] [place], [address] Creatinine [Mass/Vol] 0.43 mg/dL Low 0.70-1.20 [facility] Comment on above: Performed By: #### L 100.0100, L500.2500 ####[facility] [address] [place], [address] ECRCL 58.59 ml/min Normal [facility] Comment on above: Performed By: #### L 100.0100, L500.2500 ####[facility] [address] [place], [address] GFR/1.73 sq M.predicted among non-blacks MDRD (S/P/Bld) [Vol rate/Area] 104 mL/min/{1.73_m2} Normal >60 [facility] Comment on above: Result Comment: mL/m in/1.73m2 CKD-EPI Creatinine Equation (2020) Performed By: #### L 100.0100, L500.2500 ####[facility] [address] [place], [address] Glucose [Mass/Vol] 124 mg/dL High 70-99 [facility] Comment on above: Performed By: #### L 100.0100, L500.2500 ####[facility] [address] [place], [address] Potassium [Moles/Vol] 3.2 mmol/L Low 3.3-5.1 [facility] Comment on above: Performed By: #### L 100.0100, L500.2500 ####[facility] [address] [place], [address] Sodium [Moles/Vol] 134 mmol/L Normal 133-145 [facility] Comment on above: Performed By: #### L 100.0100, L500.2500 ####[facility] [address] [place], [address] Urea nitrogen [Mass/Vol] 13 mg/dL Normal 4-19 [facility] Comment on above: Performed By: #### L 100.0100, L500.2500 ####[facility] [address] [place], [address] Basophil percentageOrdered B y: Lori Matthews on 01-26-2025 Basophils/100 WBC (Bld) 0.3 % 0-[address] [facility] CBC W/Diff, Automatedon 12-31 PATH REV Reviewed Normal [facility] Comment on above: Result Comment: Neut rophilic leukocytosis.Normocytic anemia.Clinical correlation necessary.Fidel Morillo M.D. 01/26/25 AMENDED REPORT 01/26/25 1337 PATH REV previously reported as: March Performed By: #### L 500.4050, L100.0100, L501.5200, L501.2300 ####[facility] [address] [place], [address] Absolute Lymph 0.66 X10 3/uL Low 0.83-4.51 [facility] Comment on above: Performed By: #### L 100.0100, L500.2500 ####[facility] [address] [place], [address] Absolute Neut 12.2 X10 3/uL High 2.0-7.7 [facility] Comment on above: Performed By: #### L 100.0100, L500.2500 ####[facility] [address] [place], [address] Basophils/100 WBC (Bld) 0.3 % Normal 0-[address] [facility] Comment on above: Performed By: #### L 100.0100, L500.2500 ####[facility] [address] [place], [address] Eosinophils/100 WBC (Bld) 0.6 % Normal 0-5 [facility] Comment on above: Performed By: #### L 100.0100, L500.2500 ####[facility] [address] [place], [address] Erythrocyte distribution width (RBC) [Ratio] 12.7 % Normal 11.6-14.6 [facility] Comment on above: Performed By: #### L 100.0100, L500.2500 ####[facility] [address] [place], [address] Hematocrit (Bld) [Volume fraction] 31.4 % Low 37-47 [facility] Comment on above: Performed By: #### L 100.0100, L500.2500 ####[facility] [address] [place], [address] Hemoglobin (Bld) [Mass/Vol] 10.4 g/dL Low 12.0-15.0 [facility] Comment on above: Performed By: #### L 100.0100, L500.2500 ####[facility] [address] [place], [address] IG% 0.400 Normal 0.0-0.9 [facility] Comment on above: Result Comment: IG% - Immature Granulocytes (promyelocytes, myelocytes andmetamyelocytes) > 1% indicates that a LEFT SHIFT is Present. Performed By: #### L 100.0100, L500.2500 ####[facility] [address] [place], [address] Lymphocytes/100 WBC (Bld) 4.6 % Low 19-41 [facility] Comment on above: Performed By: #### L 100.0100, L500.2500 ####[facility] [address] [place], [address] MCH (RBC) [Entitic mass] 29.1 pg Normal 27.0-32.0 [facility] Comment on above: Performed By: #### L 100.0100, L500.2500 ####[facility] [address] [place], [address] MCHC (RBC) [Mass/Vol] 33.1 g/dL Normal 32-36 [facility] Comment on above: Performed By: #### L 100.0100, L500.2500 ####[facility] [address] [place], [address] MCV (RBC) [Entitic vol] 87.7 fL Normal 81-99 [facility] Comment on above: Performed By: #### L 100.0100, L500.2500 ####[facility] [address] [place], [address] Monocytes/100 WBC (Bld) 9.1 % Normal 0-[address] [facility] Comment on above: Performed By: #### L 100.0100, L500.2500 ####[facility] [address] [place], [address] Neutrophils/100 WBC (Bld) 85.0 % High 47-70 [facility] Comment on above: Performed By: #### L 100.0100, L500.2500 ####[facility] [address] [place], [address] Nucleated RBC (Bld) [#/Vol] 0 10*3/uL Normal 0-5 [facility] Comment on above: Performed By: #### L 100.0100, L500.2500 ####[facility] [address] [place], [address] Platelet mean volume (Bld) [Entitic vol] 10.2 fL Normal 6.2-12.0 [facility] Comment on above: Performed By: #### L 100.0100, L500.2500 ####[facility] [address] [place], [address] Platelets (Bld) [#/Vol] 249 10*3/uL Normal 150-450 [facility] Comment on above: Performed By: #### L 100.0100, L500.2500 ####[facility] [address] [place], [address] RBC (Bld) [#/Vol] 3.58 10*6/uL Low 4.2-5.4 [facility] Comment on above: Performed By: #### L 100.0100, L500.2500 ####[facility] [address] [place], [address] RDW SD 40.6 fl Normal 35.1-43.9 [facility] Comment on above: Performed By: #### L 100.0100, L500.2500 ####[facility] [address] [place], [address] WBC (Bld) [#/Vol] 14.4 10*3/uL High 4.4-11.0 [facility] Comment on above: Performed By: #### L 100.0100, L500.2500 ####[facility] [address] [place], [address] CCP IgG Antibodieson 025 CCP IgG Ab. 6 units Normal 0-19 [facility] Comment on above: Result Comment: Nega tive <20 Weak positive 20 - 39 Moderate positive 40 - 59 Strong positive >59Performed at: [facility] [email or web address] [id number] [place], [place] [id number] Director: Eros Rosales PhD, Phone: [phone] Performed By: #### L 3100.1515, L3300.1200, L4600.0100, L3410.9998, L505.7010 ####[facility] [address] [place], [place], [id number] Carbon dioxide measurementOr dered By: Lori Matthews on 01-26-2025 CO2 [Moles/Vol] 24.8 mmol/L 22.0-29.0 [facility] Chloride measurementOrdered By: Lori Matthews on 01-26-2025 Chloride [Moles/Vol] 97 mmol/L 96-108 [facility] Eosinophil percentageOrdered By: Lori Matthews on 01-26-2025 Eosinophils/100 WBC (Bld) 0.6 % 0-5 [facility] Erythrocyte distribution wid th ratioOrdered By: Lori Matthews on 01-26-2025 Erythrocyte distribution width (RBC) [Ratio] 12.7 % 11.6-14.6 [facility] Erythrocyte distribution wid th standard deviationOrdered By: Lori Matthews on 01-26-2025 Erythrocyte distribution width (RBC) [Entitic vol] 40.6 fL 35.1-43.9 [facility] Erythrocyte distribution width (RBC) [Ratio] 40.6 fl 35.1-43.9 [facility] Estimation of creatinine luis aranceOrdered By: Lori Matthews on 01-26-2025 Estimated Creatinine Clearance Calc 58.59 ml/min [facility] GFR/1.73 sq M.predicted connor g non-blacks MDRD (S/P/Bld) [Vol rate/Area]Ordered By: Lori Matthews on 01-26-2025 Estimated GFR (MDRD) Non-Af Amer 104 >60 [facility] Comment on above: mL/min/1.73m2 CKD-EP I Creatinine Equation (2020) Glomerular filtration rate ( GFR) estimation/1.73 sq m using serum, plasma, or whole bOrdered By: Lori Matthews on 01-26-2025 GFR/1.73 sq M.predicted among non-blacks MDRD (S/P/Bld) [Vol rate/Area] 104 mL/min/{1.73_m2} >60 [facility] Comment on above: mL/min/1.73m2 CKD-EP I Creatinine Equation (2020) Hematocrit Auto (Bld) [Volum e fraction]Ordered By: Lori Matthews on 01-26-2025 Hematocrit (Bld) [Volume fraction] 31.4 % Low 37-47 [facility] Hemoglobin measurementOrdere d By: Lori Matthews on 01-26-2025 Hemoglobin (Bld) [Mass/Vol] 10.4 g/dL Low 12.0-15.0 [facility] Immature granulocytes/100 WB C Auto (Bld)Ordered By: Lori Matthews on 01-26-2025 Immature granulocytes/100 WBC (Bld) 0.400 % 0.0-0.9 [facility] Comment on above: IG% - Immature Granu locytes (promyelocytes, myelocytes and metamyelocytes) > 1% indicates that a LEFT SHIFT is Present. Lymphocytes Auto (Unsp spec) [#/Vol]Ordered By: Lori Matthews on 01-26-2025 Lymphocytes (Bld) [#/Vol] 0.66 10*3/uL Low 0.83-4.51 [facility] Lymphocytes/100 WBC Auto (Un sp spec)Ordered By: Lori Matthews on 01-26-2025 Lymphocytes/100 WBC (Bld) 4.6 % Low 19-41 [facility] MCV (mean corpuscular volume ) determinationOrdered By: Lori Matthews on 01-26-2025 MCV (RBC) [Entitic vol] 87.7 fL 81-[address] [facility] Mean corpuscular hemoglobin (MCH) determinationOrdered By: Lori Matthews on 01-26-2025 MCH (RBC) [Entitic mass] 29.1 pg 27.0-32.0 [facility] Mean corpuscular hemoglobin concentration (MCHC) determinationOrdered By: Lori Matthews on 01-26-2025 MCHC (RBC) [Mass/Vol] 33.1 g/dL 32-36 [facility] Mean platelet volume determi nationOrdered By: Lori Matthews on 01-26-2025 Platelet mean volume (Bld) [Entitic vol] 10.2 fL 6.2-12.0 [facility] Monocyte percentageOrdered B y: Lori Matthews on 01-26-2025 Monocytes/100 WBC (Bld) 9.1 % 0-[address] [facility] Neutrophil percentageOrdered By: Lori Matthews on 01-26-2025 Neutrophils/100 WBC (Bld) 85.0 % High 47-70 [facility] Nucleated red blood cell per centageOrdered By: Lori Matthews on 01-26-2025 Nucleated RBC/100 WBC (Bld) [Ratio] 0 % 0-5 [facility] Platelet countOrdered By: Lissett Matthews on 01-26-2025 Platelets (Bld) [#/Vol] 249 10*3/uL 150-450 [facility] RBC Auto (Bld) [#/Vol]Ordere d By: Lori Matthews on 01-26-2025 RBC (Bld) [#/Vol] 3.58 10*6/uL Low 4.2-5.4 [facility] Serum creatinine measurement (mass/volume)Ordered By: Lori Matthews on 01-26-2025 Creatinine [Mass/Vol] 0.43 mg/dL Low 0.70-1.20 [facility] Serum glucose measurement (m ass/volume)Ordered By: Lori Matthews on 01-26-2025 Glucose [Mass/Vol] 124 mg/dL High 70-99 [facility] Serum or plasma anion gap de termination (moles/volume)Ordered By: Lori Matthews on 01-26-2025 Anion gap [Moles/Vol] 12 mmol/L 5-15 [facility] Serum or plasma calcium aury urement (mass/volume)Ordered By: Lori Matthews on 01-26-2025 Calcium [Mass/Vol] 8.8 mg/dL 7.6-11.0 [facility] Serum or plasma potassium me asurementOrdered By: Lori Matthews on 01-26-2025 Potassium [Moles/Vol] 3.2 mmol/L Low 3.3-5.1 [facility] Serum or plasma sodium measu rement (moles/volume)Ordered By: Lori Matthews on 01-26-2025 Sodium [Moles/Vol] 134 mmol/L 133-145 [facility] Serum or plasma urea nitroge n measurement (mass/volume)Ordered By: Lori Matthews on 01-26-2025 Urea nitrogen [Mass/Vol] 13 mg/dL 4-19 [facility] Urine Cultureon 01-26-2025 URC Mixed Gram Positive Organisms [place] Count 11,000-25,000 MIXC Mixed contaminants. Submit a new specimen if indicated. Normal [facility] Comment on above: Performed By: #### L 400.0001, M100.678, M100.2200 ####[facility] [address] [place], [place], [id number] White blood cell (WBC) count Ordered By: Lori Matthews on 01-26-2025 WBC (Bld) [#/Vol] 14.4 10*3/uL High 4.4-11.0 [facility] Activated partial thrombopla stin time (aPTT) in platelet poor plasma by coagulation aOrdered By: Cuba Allred on 01-25-2025 aPTT Coag (PPP) [Time] 214.1 s High 24.1-36.2 [facility] Comment on above: CRITICAL VALUE LEVINE Kat SHERWOOD RN (ICU)01/25/25 0902 Zak Woods.RESULTS READ BACK BY SAME. Bilirubin, totalOrdered By: Lori Matthews on 01-25-2025 Bilirubin [Mass/Vol] 0.47 mg/dL 0.00-1.30 [facility] Comprehensive Metabolic Prof ilon 01-25-2025 Albumin [Mass/Vol] 2.9 g/dL Low 3.4-4.8 [facility] Comment on above: Performed By: #### L 500.4050, L100.0100, L501.5200, L501.2300 ####[facility] [address] [place], [address] Albumin/Globulin [Mass ratio] 0.9 {ratio} Normal 0.9-2.4 [facility] Comment on above: Performed By: #### L 500.4050, L100.0100, L501.5200, L501.2300 ####[facility] [address] [place], [address] ALK PHOS 89 U/L Normal 35-104 [facility] Comment on above: Performed By: #### L 500.4050, L100.0100, L501.5200, L501.2300 ####[facility] [address] [place], [address] ALT [Catalytic activity/Vol] 9 U/L Normal <=34 [facility] Comment on above: Performed By: #### L 500.4050, L100.0100, L501.5200, L501.2300 ####[facility] [address] [place], [address] Anion gap [Moles/Vol] 12 mmol/L Normal 5-15 [facility] Comment on above: Performed By: #### L 500.4050, L100.0100, L501.5200, L501.2300 ####[facility] [address] [place], [address] AST [Catalytic activity/Vol] 14 U/L Normal <=31 [facility] Comment on above: Performed By: #### L 500.4050, L100.0100, L501.5200, L501.2300 ####[facility] [address] [place], [address] Bilirubin [Mass/Vol] 0.47 mg/dL Normal 0.00-1.30 [facility] Comment on above: Performed By: #### L 500.4050, L100.0100, L501.5200, L501.2300 ####[facility] [address] [place], [address] BUN/CRE 30.5 RATIO High 10-20 [facility] Comment on above: Performed By: #### L 500.4050, L100.0100, L501.5200, L501.2300 ####[facility] [address] [place], [address] Calcium [Mass/Vol] 8.9 mg/dL Normal 7.6-11.0 [facility] Comment on above: Performed By: #### L 500.4050, L100.0100, L501.5200, L501.2300 ####[facility] [address] [place], [address] Chloride [Moles/Vol] 99 mmol/L Normal 96-108 [facility] Comment on above: Performed By: #### L 500.4050, L100.0100, L501.5200, L501.2300 ####[facility] [address] [place], [address] CO2 [Moles/Vol] 21.6 mmol/L Low 22.0-29.0 [facility] Comment on above: Performed By: #### L 500.4050, L100.0100, L501.5200, L501.2300 ####[facility] [address] [place], [address] Creatinine [Mass/Vol] 0.4 mg/dL Low 0.6-1.0 [facility] Comment on above: Performed By: #### L 500.4050, L100.0100, L501.5200, L501.2300 ####[facility] [address] [place], [address] ECRCL 58.18 ml/min Normal [facility] Comment on above: Performed By: #### L 500.4050, L100.0100, L501.5200, L501.2300 ####[facility] [address] [place], [address] GFR/1.73 sq M.predicted among non-blacks MDRD (S/P/Bld) [Vol rate/Area] 107 mL/min/{1.73_m2} Normal >60 [facility] Comment on above: Result Comment: mL/m in/1.73m2 CKD-EPI Creatinine Equation (2020) Performed By: #### L 500.4050, L100.0100, L501.5200, L501.2300 ####[facility] [address] [place], [address] Globulin (S) [Mass/Vol] 3.4 g/dL Normal 2.2-4.2 [facility] Comment on above: Performed By: #### L 500.4050, L100.0100, L501.5200, L501.2300 ####[facility] [address] [place], [address] Glucose [Mass/Vol] 107 mg/dL High 70-99 [facility] Comment on above: Performed By: #### L 500.4050, L100.0100, L501.5200, L501.2300 ####[facility] [address] [place], [address] Potassium [Moles/Vol] 3.9 mmol/L Normal 3.3-5.1 [facility] Comment on above: Performed By: #### L 500.4050, L100.0100, L501.5200, L501.2300 ####[facility] [address] [place], [address] Sodium [Moles/Vol] 133 mmol/L Normal 133-145 [facility] Comment on above: Performed By: #### L 500.4050, L100.0100, L501.5200, L501.2300 ####[facility] [address] [place], [address] T PROT 6.3 g/dL Normal 5.9-8.4 [facility] Comment on above: Performed By: #### L 500.4050, L100.0100, L501.5200, L501.2300 ####[facility] [address] [place], [address] Urea nitrogen [Mass/Vol] 12 mg/dL Normal 4-19 [facility] Comment on above: Performed By: #### L 500.4050, L100.0100, L501.5200, L501.2300 ####[facility] [address] [place], [address] Laboratory - Chemistry and C hemistry - challengeOrdered By: Lori Matthews on 01-25-2025 AST [Catalytic activity/Vol] 14 U/L <32 [facility] Magnesiumon 01-25-2025 Magnesium [Mass/Vol] 2.1 mg/dL Normal 1.5-2.2 [facility] Comment on above: Performed By: #### L 500.4050, L100.0100, L501.5200, L501.2300 ####[facility] [address] [place], [address] Magnesium (Unsp spec) [Mass/ Vol]Ordered By: Lori Matthews on 01-25-2025 Magnesium [Mass/Vol] 2.1 mg/dL 1.5-2.2 [facility] Magnesium measurement (mass/ volume)Ordered By: Lori Matthews on 01-25-2025 Magnesium (Unsp spec) [Mass/Vol] 2.1 mg/dL 1.5-2.2 [facility] No Panel InformationOrdered By: Lori Matthews on 01-25-2025 14 U/L <32 [facility] Partial Thromboplast Timeon 01-25-2025 aPTT Coag (Bld) [Time] 214.1 s Invalid Interpretation Code 24.1-36.2 [facility] Comment on above: Result Comment: CRIT ICAL VALUE CALLED TO PRESLEY CROADO (ICU)01/25/25 0902 Zak Woods.RESULTS READ BACK BY SAME. Performed By: #### L 300.4310 ####[facility] [address] [place], [place], [address] Pathologist review Hal (Unsp spec) [Interp]Ordered By: Lori Matthews on 01-25-2025 Differential Pathologist's Review Reviewed [facility] Comment on above: Previous reported re sult: May foll Edited by: OVIDIO on 01/26/25:1337Neutrophilic leukocytosis.Normocytic anemia.Clinical correlation necessary.Fidel Morillo M.D. 01/26/25 AMENDED REPORT 01/26/251336 PATH REV previously reported as: March melissa Phosphoruson 01-25-2025 Phosphate [Mass/Vol] 2.2 mg/dL Low 2.7-4.5 [facility] Comment on above: Performed By: #### L 500.4050, L100.0100, L501.5200, L501.2300 ####[facility] [address] [place], [address] Review by pathologistOrdered By: Lori Matthews on 01-25-2025 Pathologist review Hal (Unsp spec) [Interp] Reviewed [facility] Comment on above: Previous reported re sult: May foll Edited by: OVIDIO on 01/26/25:1337Neutrophilic leukocytosis.Normocytic anemia.Clinical correlation necessary.Fidel Morillo M.D. 01/26/25 AMENDED REPORT 01/26/251336 PATH REV previously reported as: March melissa Serum globulin measurementOr dered By: Lori Matthews on 01-25-2025 Globulin (S) [Mass/Vol] 3.4 g/dL 2.2-4.[address] [facility] Serum or plasma alanine lake otransferase (ALT) measurementOrdered By: Lori Matthews on 01-25-2025 ALT [Catalytic activity/Vol] 9 U/L <35 [facility] Serum or plasma albumin aury urement (mass/volume)Ordered By: Lori Matthews on 01-25-2025 Albumin [Mass/Vol] 2.9 g/dL Low 3.4-4.8 [facility] Serum or plasma albumin/glob ulin mass ratioOrdered By: Lori Matthews on 01-25-2025 Albumin/Globulin [Mass ratio] 0.9 {ratio} 0.9-2.4 [facility] Serum or plasma alkaline frances sphatase measurementOrdered By: Lori Matthews on 01-25-2025 ALP [Catalytic activity/Vol] 89 U/L 35-104 [facility] Serum phosphorus measurement Ordered By: Lori Matthews on 01-25-2025 Phosphorus Level 2.2 mg/dL Low 2.7-4.5 [facility] Total proteinOrdered By: Ayala Matthews on 01-25-2025 Protein [Mass/Vol] 6.3 g/dL 5.9-8.4 [facility] aPTT Coag (PPP) [Time]Ordere d By: Cuba Allred on 01-25-2025 aPTT Coag (Bld) [Time] 214.1 s High 24.1-36.2 [facility] Comment on above: CRITICAL VALUE LEVINE D TO PRESLEY CORADO (ICU)01/25/25 0902 Zak Woods.RESULTS READ BACK BY SAME. QUITA serumOrdered By: Cuba castro on 01-24-2025 Anti-Nuclear Antibody Screen Negative Negative [facility] Comment on above: Performed at: [address] [id number] Director: Eros Rosales PhD, Phone: [phone] Atypical perinuclear antineu trophil cytoplasmic antibodies measurementOrdered By: Cuba Allred on 01-24-2025 Atypical p-ANCA <1:20 titer Neg:<1:20 [facility] Comment on above: The atypical pANCA p attern has been observed in asignificant percentage of patients with ulcerative colitis,primary sclerosing cholangitis and autoimmune hepatitis. Basic Metabolic Profile (BMP )on 01-24-2025 Anion gap [Moles/Vol] 10 mmol/L Normal 5-15 [facility] Comment on above: Performed By: #### L 500.2500, L100.0100 ####[facility] [address] [place], [address] BUN/CRE 22.7 RATIO High 10-20 [facility] Comment on above: Performed By: #### L 500.2500, L100.0100 ####[facility] [address] [place], [address] Calcium [Mass/Vol] 8.4 mg/dL Normal 7.6-11.0 [facility] Comment on above: Performed By: #### L 500.2500, L100.0100 ####[facility] [address] [place], [address] Chloride [Moles/Vol] 102 mmol/L Normal 96-108 [facility] Comment on above: Performed By: #### L 500.2500, L100.0100 ####[facility] [address] [place], [address] CO2 [Moles/Vol] 22.1 mmol/L Normal 22.0-29.0 [facility] Comment on above: Performed By: #### L 500.2500, L100.0100 ####[facility] [address] [place], [address] Creatinine [Mass/Vol] 0.5 mg/dL Low 0.6-1.0 [facility] Comment on above: Performed By: #### L 500.2500, L100.0100 ####[facility] [address] [place], [address] ECRCL 57.73 ml/min Normal [facility] Comment on above: Performed By: #### L 500.2500, L100.0100 ####[facility] [address] [place], [address] GFR/1.73 sq M.predicted among non-blacks MDRD (S/P/Bld) [Vol rate/Area] 100 mL/min/{1.73_m2} Normal >60 [facility] Comment on above: Result Comment: mL/m in/1.73m2 CKD-EPI Creatinine Equation (2020) Performed By: #### L 500.2500, L100.0100 ####[facility] [address] [place], [address] Glucose [Mass/Vol] 118 mg/dL High 70-99 [facility] Comment on above: Performed By: #### L 500.2500, L100.0100 ####[facility] [address] [place], [address] Potassium [Moles/Vol] 4.2 mmol/L Normal 3.3-5.1 [facility] Comment on above: Result Comment: Hemo lysis present, Results??could be affected.?? Performed By: #### L 500.2500, L100.0100 ####[facility] [address] [place], [address] Sodium [Moles/Vol] 134 mmol/L Normal 133-145 [facility] Comment on above: Performed By: #### L 500.2500, L100.0100 ####[facility] [address] [place], [address] Urea nitrogen [Mass/Vol] 12 mg/dL Normal 4-19 [facility] Comment on above: Performed By: #### L 500.2500, L100.0100 ####[facility] [address] [place], [address] Blood manual differential co mment interpretation (narrative result)Ordered By: Raymundo Bhardwaj on 01-24-2025 Manual differential comment Hal (Bld) [Interp] SCANNED [facility] Comment on above: MONOCYTOSIS PRESENTL EFT SHIFT: BANDS PRESENT 2+ CBC W/Diff, Automatedon -2 PATH REV Reviewed Normal [facility] Comment on above: Result Comment: Neut rophilic leukocytosis.Normocytic anemia.Clinical correlation necessary.Fidel Morillo M.D. 01/24/25 AMENDED REPORT 01/24/25 1331 PATH REV previously reported as: Jenna torres Performed By: #### L 500.2500, L100.0100 ####[facility] [address] [place], [place], [id number] Centromere B antibody assayO rdered By: Cuba Allred on 01-24-2025 [facility] on above: Test not performed Chromatin antibody assayOrde red By: Cuba Allred on 01-24-2025 Antichromatin Antibodies [facility] Comment on above: Test not performed Consultation - Intensiviston 01-24-2025 Consultation - Cargo Checker Normal [facility] Consultation - Surgicalon Consultation - Surgical Normal [facility] Cyclic citrullinated peptide IgG QnOrdered By: Cuba Allred on 01-24-2025 Cyclic Citrullinated Peptide IgG Ab 6 units 0-19 [facility] Comment on above: Negative <20 Weak po sitive 20 - 39 Moderate positive 40 - 59 Strong positive >59Performed at: [facility] [address] Director: Eros Rosales PhD, Phone: [phone] DNA double strand Ab Qn (S)O rdered By: Cuba Allred on 01-24-2025 Anti-Double Strand DNA [facility] Comment on above: Test not performed Rose-1 antibody assayOrdered B y: Cuba Allred on 01-24-2025 ROSE-1 Antibody [facility] Comment on above: Test not performed L499.0043on 01-24-2025 Trop T High Sen 23 ng/L High <=14 [facility] Comment on above: Performed By: #### L 499.0043 ####[facility] [address] [place], [place], [address] Manual differential comment Hal (Bld) [Interp]Ordered By: Raymundo Bhardwaj on 02-26-2025 Differential Comment SCANNED [facility] Comment on above: MONOCYTOSIS PRESENTL EFT SHIFT: BANDS PRESENT 2+ Neutrophil cytoplasmic Ab.cl assic Qn (S)Ordered By: Cuba Allred on 01-24-2025 Cytoplasmic ANCA (c-ANCA) Antibody <1:20 titer Neg:<1:20 [facility] Neutrophil cytoplasmic Ab.pe rinuclear IF (S) [Titer]Ordered By: Cuba Allred on 01-24-2025 Perinuclear ANCA (p-ANCA) Antibody <1:20 titer Neg:<1:20 [facility] Comment on above: The presence of posi tive fluorescence exhibiting P-ANCA orC-ANCA patterns alone is not specific for the diagnosis ofWegener's Granulomatosis (WG) or microscopic polyangiitis.Decisions about treatment should not be based solely onANCA IFA results. The [employer] Consensusrecommends follow up testing of positive sera with both MI-3 and MPO-ANCA enzyme immunoassays. As many as 5% serumsamples are positive only by EIA. Ref. AM J Clin Assmoi2252;111:507-513. Partial Thromboplast Timeon 01-24-2025 aPTT Coag (Bld) [Time] 55.9 s High 24.1-36.2 [facility] Comment on above: Order Comment: Comme nts: Time sensitive heparin drip Performed By: #### L 300.4310 ####[facility] [address] [place], [address] aPTT Coag (Bld) [Time] 63.2 s High 24.1-36.2 [facility] Comment on above: Order Comment: Comme nts: Time sensitive heparin drip Performed By: #### L 300.4310 ####[facility] [address] [place], [address] aPTT Coag (Bld) [Time] 46.6 s High 24.1-36.2 [facility] Comment on above: Performed By: #### L 300.4310 ####[facility] [address] [place], [address] aPTT Coag (Bld) [Time] 53.2 s High 24.1-36.2 [facility] Comment on above: Performed By: #### L 300.4310 ####[facility] [address] [place], [place], [id number] Platelet estimateOrdered By: Raymundo Bhardwaj on 01-24-2025 Platelets LM Ql (Bld) ADEQUATE ADEQ [facility] Platelet morphologyOrdered B y: Raymundo Bhardwaj on 01-24-2025 Platelet morphology finding Nom (Bld) LARGE [facility] Platelet morphology finding Nom (Bld)Ordered By: Raymundo Bhardwaj on 01-24-2025 Platelet Morphology Comment [facility] Platelets LM Ql (Bld)Ordered By: Raymundo Bhardwaj on 01-24-2025 Platelet Estimate ADEQUATE [facility] [employer]ITE [employer] SYRUP OPERATOR abOrdered By: Cuba starks on 01-24-2025 WHITE SUGAR SYRUP OPERATOR Antibody [facility] Comment on above: Test not performed Rheumatoid Factoron 01-24-20 RHEUMATOID FAC 20.2 IU/mL High <15 [facility] Comment on above: Performed By: #### L 3100.5450, L3300.1200, L4600.0100, L3410.9998, L505.7010 ####[facility] [address] [place], [place], [id number] Rheumatoid factor Ql (S)Orde red By: Cuba Allred on 01-24-2025 Rheumatoid Factor 20.2 IU/mL High <15 [facility] SCL-70 extractable nuclear A b Qn (S)Ordered By: Cuba Allred on 01-24-2025 Scl-70 (Scleroderma) Antibody [facility] Comment on above: Test not performed SS-A IgG antibody assayOrder ed By: Cuba Allred on 01-24-2025 SS-A/Ro IgG Antibody [facility] Comment on above: Test not performed SS-B IgG antibody assayOrder ed By: Cuba Allred on 01-24-2025 SS-B/La IgG Antibody [facility] Comment on above: Test not performed Serum DNA double strand anti body assay (units/volume)Ordered By: Cuba Allred on 01-24-2025 DNA double strand Ab Qn (S) [facility] Comment on above: Test not performed Serum Scl-70 antibody assay (units/volume)Ordered By: Cuba Allred on 01-24-2025 SCL-70 extractable nuclear Ab Qn (S) [facility] Comment on above: Test not performed Serum classic neutrophil cyt oplasmic antibody assay (units/volume)Ordered By: Cuba Allred on 01-24-2025 Neutrophil cytoplasmic Ab.classic Qn (S) <1:20 titer Neg:<1:20 [facility] Serum or plasma cyclic citru llinated peptide IgG antibody assay (units/volume)Ordered By: Cuba Allred on 01-24-2025 Cyclic citrullinated peptide IgG Qn 6 units 0-19 [facility] Comment on above: Negative <20 Weak po sitive 20 - 39 Moderate positive 40 - 59 Strong positive >59Performed at: [facility] [place] [id number] Director: Eros Rosales PhD, Phone: [phone] Serum perinuclear neutrophil cytoplasmic antibody titer by immunofluorescenceOrdered By: Cuba Allred on 01-24-2025 Neutrophil cytoplasmic Ab.perinuclear IF (S) [Titer] <1:20 titer Neg:<1:20 [facility] Comment on above: The presence of posi tive fluorescence exhibiting P-ANCA orC-ANCA patterns alone is not specific for the diagnosis ofWegener's Granulomatosis (WG) or microscopic polyangiitis.Decisions about treatment should not be based solely onANCA IFA results. The [employer] AN[employer] Consensusrecommends follow up testing of positive sera with both MI-3 and MPO-ANCA enzyme immunoassays. As many as 5% serumsamples are positive only by EIA. Ref. AM J Clin Ozcgys5118;111:507-513. Serum rheumatoid factor dete ctionOrdered By: Cuba Allred on 01-24-2025 Rheumatoid factor Ql (S) 20.2 IU/mL High <15 [facility] Álvarez antibody assayOrdered By: Cuba Allred on 01-24-2025 SM Antibody [facility] Comment on above: Test not performed Toxic granules LM Ql (Bld)Or marissad By: Raymundo Bhardwaj on 01-24-2025 Toxic Granulation 1+ [facility] Toxic leukocyte granulation detectionOrdered By: Raymundo Bhardwaj on 01-24-2025 Toxic granules LM Ql (Bld) 1+ [facility] 12 Lead EKGon 01-23-2025 12 Lead EKG Normal [facility] Bilirubin Test strip Ql (U)O rdered By: Martha Long on 01-23-2025 Bilirubin Ql (U) Negative Negative [facility] Blood cultureOrdered By: Selene Long on 01-23-2025 Bacteria identified Cx Nom (Bld) No growth in 5 days. [facility] Bacteria identified Cx Nom (Bld) No growth in 5 days. [facility] CBC W/Diff, Automatedon 12-31 Absolute Lymph 0.56 X10 3/uL Low 0.83-4.51 [facility] Comment on above: Performed By: #### M 200.1000, L100.0100, L500.4050, L503.6005, L300.3900, L300.4310 ####[facility] [address] [place], [address] Absolute Neut 16.0 X10 3/uL High 2.0-7.7 [facility] Comment on above: Performed By: #### M 200.1000, L100.0100, L500.4050, L503.6005, L300.3900, L300.4310 ####[facility] [address] [place], [address] Basophils/100 WBC (Bld) 0.3 % Normal 0-[address] [facility] Comment on above: Performed By: #### M 200.1000, L100.0100, L500.4050, L503.6005, L300.3900, L300.4310 ####[facility] [address] [place], [address] Eosinophils/100 WBC (Bld) 0.1 % Normal 0-5 [facility] Comment on above: Performed By: #### M 200.1000, L100.0100, L500.4050, L503.6005, L300.3900, L300.4310 ####[facility] [address] [place], [address] Erythrocyte distribution width (RBC) [Ratio] 12.8 % Normal 11.6-14.6 [facility] Comment on above: Performed By: #### M 200.1000, L100.0100, L500.4050, L503.6005, L300.3900, L300.4310 ####[facility] [address] [place], [address] Hematocrit (Bld) [Volume fraction] 41.1 % Normal 37-47 [facility] Comment on above: Performed By: #### M 200.1000, L100.0100, L500.4050, L503.6005, L300.3900, L300.4310 ####[facility] [address] [place], [address] Hemoglobin (Bld) [Mass/Vol] 13.3 g/dL Normal 12.0-15.0 [facility] Comment on above: Performed By: #### M 200.1000, L100.0100, L500.4050, L503.6005, L300.3900, L300.4310 ####[facility] [address] [place], [address] IG% 0.600 Normal 0.0-0.9 [facility] Comment on above: Result Comment: IG% - Immature Granulocytes (promyelocytes, myelocytes andmetamyelocytes) > 1% indicates that a LEFT SHIFT is Present. Performed By: #### M 200.1000, L100.0100, L500.4050, L503.6005, L300.3900, L300.4310 ####[facility] [address] [place], [address] Lymphocytes/100 WBC (Bld) 3.1 % Low 19-41 [facility] Comment on above: Performed By: #### M 200.1000, L100.0100, L500.4050, L503.6005, L300.3900, L300.4310 ####[facility] [address] [place], [address] MCH (RBC) [Entitic mass] 28.9 pg Normal 27.0-32.0 [facility] Comment on above: Performed By: #### M 200.1000, L100.0100, L500.4050, L503.6005, L300.3900, L300.4310 ####[facility] [address] [place], [address] MCHC (RBC) [Mass/Vol] 32.4 g/dL Normal 32-36 [facility] Comment on above: Performed By: #### M 200.1000, L100.0100, L500.4050, L503.6005, L300.3900, L300.4310 ####[facility] [address] [place], [address] MCV (RBC) [Entitic vol] 89.3 fL Normal 81-[address] [facility] Comment on above: Performed By: #### M 200.1000, L100.0100, L500.4050, L503.6005, L300.3900, L300.4310 ####[facility] [address] [place], [address] Monocytes/100 WBC (Bld) 7.6 % Normal 0-[address] [facility] Comment on above: Performed By: #### M 200.1000, L100.0100, L500.4050, L503.6005, L300.3900, L300.4310 ####[facility] [address] [place], [address] Neutrophils/100 WBC (Bld) 88.3 % High 47-70 [facility] Comment on above: Performed By: #### M 200.1000, L100.0100, L500.4050, L503.6005, L300.3900, L300.4310 ####[facility] [address] [place], [address] Nucleated RBC (Bld) [#/Vol] 0 10*3/uL Normal 0-5 [facility] Comment on above: Performed By: #### M 200.1000, L100.0100, L500.4050, L503.6005, L300.3900, L300.4310 ####[facility] [address] [place], [address] Platelet mean volume (Bld) [Entitic vol] 10.3 fL Normal 6.2-12.0 [facility] Comment on above: Performed By: #### M 200.1000, L100.0100, L500.4050, L503.6005, L300.3900, L300.4310 ####[facility] [address] [place], [address] Platelets (Bld) [#/Vol] 197 10*3/uL Normal 150-450 [facility] Comment on above: Performed By: #### M 200.1000, L100.0100, L500.4050, L503.6005, L300.3900, L300.4310 ####[facility] [address] [place], [address] RBC (Bld) [#/Vol] 4.60 10*6/uL Normal 4.2-5.4 [facility] Comment on above: Performed By: #### M 200.1000, L100.0100, L500.4050, L503.6005, L300.3900, L300.4310 ####[facility] [address] [place], [address] RDW SD 42.2 fl Normal 35.1-43.9 [facility] Comment on above: Performed By: #### M 200.1000, L100.0100, L500.4050, L503.6005, L300.3900, L300.4310 ####[facility] [address] [place], [address] WBC (Bld) [#/Vol] 18.1 10*3/uL High 4.4-11.0 [facility] Comment on above: Performed By: #### M 200.1000, L100.0100, L500.4050, L503.6005, L300.3900, L300.4310 ####[facility] [address] [place], [address] CTA Chest W/WO Contraston CTA Chest W/WO Contrast Normal [facility] Chest PA and Lateralon 01-23 Chest PA and Lateral Normal [facility] Comprehensive Metabolic Prof ilon 01-23-2025 Albumin [Mass/Vol] 4.1 g/dL Normal 3.4-4.8 [facility] Comment on above: Performed By: #### M 200.1000, L100.0100, L500.4050, L503.6005, L300.3900, L300.4310 ####[facility] [address] [place], [address] Albumin/Globulin [Mass ratio] 1.0 {ratio} Normal 0.9-2.4 [facility] Comment on above: Performed By: #### M 200.1000, L100.0100, L500.4050, L503.6005, L300.3900, L300.4310 ####[facility] [address] [place], [address] ALK PHOS 112 U/L High 35-104 [facility] Comment on above: Performed By: #### M 200.1000, L100.0100, L500.4050, L503.6005, L300.3900, L300.4310 ####[facility] [address] [place], [address] ALT [Catalytic activity/Vol] 14 U/L Normal <=34 [facility] Comment on above: Performed By: #### M 200.1000, L100.0100, L500.4050, L503.6005, L300.3900, L300.4310 ####[facility] [address] [place], [address] Anion gap [Moles/Vol] 13 mmol/L Normal 5-15 [facility] Comment on above: Performed By: #### M 200.1000, L100.0100, L500.4050, L503.6005, L300.3900, L300.4310 ####[facility] [address] [place], [address] AST [Catalytic activity/Vol] 22 U/L Normal <=31 [facility] Comment on above: Performed By: #### M 200.1000, L100.0100, L500.4050, L503.6005, L300.3900, L300.4310 ####[facility] [address] [place], [address] Bilirubin [Mass/Vol] 0.76 mg/dL Normal 0.00-1.30 [facility] Comment on above: Performed By: #### M 200.1000, L100.0100, L500.4050, L503.6005, L300.3900, L300.4310 ####[facility] [address] [place], [address] BUN/CRE 28.8 RATIO High 10-20 [facility] Comment on above: Performed By: #### M 200.1000, L100.0100, L500.4050, L503.6005, L300.3900, L300.4310 ####[facility] [address], [address] Calcium [Mass/Vol] 9.9 mg/dL Normal 7.6-11.0 [facility] Comment on above: Performed By: #### M 200.1000, L100.0100, L500.4050, L503.6005, L300.3900, L300.4310 ####[facility] [address] [place], [address] Chloride [Moles/Vol] 97 mmol/L Normal 96-108 [facility] Comment on above: Performed By: #### M 200.1000, L100.0100, L500.4050, L503.6005, L300.3900, L300.4310 ####[facility] [address] [place], [address] CO2 [Moles/Vol] 25.7 mmol/L Normal 22.0-29.0 [facility] Comment on above: Performed By: #### M 200.1000, L100.0100, L500.4050, L503.6005, L300.3900, L300.4310 ####[facility] [address] [place], [address] Creatinine [Mass/Vol] 0.6 mg/dL Normal 0.6-1.0 [facility] Comment on above: Performed By: #### M 200.1000, L100.0100, L500.4050, L503.6005, L300.3900, L300.4310 ####[facility] [address] [place], [address] ECRCL 56.71 ml/min Normal [facility] Comment on above: Performed By: #### M 200.1000, L100.0100, L500.4050, L503.6005, L300.3900, L300.4310 ####[facility] [address] [place], [address] GFR/1.73 sq M.predicted among non-blacks MDRD (S/P/Bld) [Vol rate/Area] 95 mL/min/{1.73_m2} Normal >60 [facility] Comment on above: Result Comment: mL/m in/1.73m2 CKD-EPI Creatinine Equation (2020) Performed By: #### M 200.1000, L100.0100, L500.4050, L503.6005, L300.3900, L300.4310 ####[facility] [address] [place], [address] Globulin (S) [Mass/Vol] 4.0 g/dL Normal 2.2-4.2 [facility] Comment on above: Performed By: #### M 200.1000, L100.0100, L500.4050, L503.6005, L300.3900, L300.4310 ####[facility] [address] [place], [address] Glucose [Mass/Vol] 121 mg/dL High 70-99 [facility] Comment on above: Performed By: #### M 200.1000, L100.0100, L500.4050, L503.6005, L300.3900, L300.4310 ####[facility] [address] [place], [address] Potassium [Moles/Vol] 4.4 mmol/L Normal 3.3-5.1 [facility] Comment on above: Performed By: #### M 200.1000, L100.0100, L500.4050, L503.6005, L300.3900, L300.4310 ####[facility] [address] [place], [address] Sodium [Moles/Vol] 135 mmol/L Normal 133-145 [facility] Comment on above: Performed By: #### M 200.1000, L100.0100, L500.4050, L503.6005, L300.3900, L300.4310 ####[facility] [address] [place], [address] T PROT 8.1 g/dL Normal 5.9-8.4 [facility] Comment on above: Performed By: #### M 200.1000, L100.0100, L500.4050, L503.6005, L300.3900, L300.4310 ####[facility] [address] [place], [address] Urea nitrogen [Mass/Vol] 18 mg/dL Normal 4-19 [facility] Comment on above: Performed By: #### M 200.1000, L100.0100, L500.4050, L503.6005, L300.3900, L300.4310 ####[facility] [address] [place], [address] D-Dimer Quantitative (DVT/PE )on 01-23-2025 D-DIMER QUANT > 20.00 Invalid Interpretation Code 0.27-0.49 [facility] Comment on above: Result Comment: D-Di hemanth ELEVATED (>0.49): Additional studies and clinicalassessments are indicated to conclude diagnosis of:Deep Vein Thrombosis (DVT) or Pulmonary Embolism (PE)CRITICAL VALUE CALLED TO TPFYAAISIK07/25/25 1628 Pebbles Trotter.RESULTS READ BACK BY SAME. Performed By: #### L 300.8000 ####[facility] [address] [place], [address] D-dimer measurement for deep venous thrombosisOrdered By: Martha Logn on 01-23-2025 D-Dimer Quantitative (PE/DVT) > 20.00 FEU/ug/m High 0.27-0.49 [facility] Comment on above: D-Dimer ELEVATED (>0 .49): Additional studies and clinicalassessments are indicated to conclude diagnosis of:Deep Vein Thrombosis (DVT) or Pulmonary Embolism (PE)CRITICAL VALUE CALLED TO CRFYGEQKDD35/25/25 1628 Pebbles Trotter.RESULTS READ BACK BY SAME. Echo Completeon 01-23-2025 Echo Complete Normal [facility] Emergency Department Summary on 01-23-2025 Emergency Department Summary Normal [facility] Epithelial cells.squamous LM Ql (Urine sed)Ordered By: Martha Long on 01-23-2025 Epithelial cells.squamous LM.HPF (Urine sed) [#/Area] 0 /[HPF] 5-10 [facility] Glucose Ql (U)Ordered By: Juan Long on 01-23-2025 Urine Glucose (UA) Normal mg/dl Normal [facility] H AND P Exam - Hospitaliston 01-23-2025 H&P Exam - Hospitalist Normal [facility] Influenza virus A and B and SARS-CoV-2 (COVID-19) and Respiratory syncytial virus RNAOrdered By: Martha Long on 01-23-2025 SARS-CoV-2 (COVID-19) RNA MEI+probe Ql (Unsp spec) [facility] International normalized rat io (INR) calculationOrdered By: Martha Long on 01-23-2025 INR Coag (Bld) [Relative time] 1.2 {INR} [facility] Ketones Test strip Ql (U)Ord ered By: Martha Long on 01-23-2025 Ketones Ql (U) 150 mg/dl Abnormal Negative [facility] Comment on above: CRITICAL VALUE *HRES ULTS CALLED TO ED 01/23/25 1739 Pebbles Trotter.REPORT READ BACK BY SAME. L499.0042on 01-23-2025 Trop T Delta Normal [facility] Comment on above: Result Comment: NURS E SAID TO CANCEL. DO NOT NEED IT Performed By: #### L 499.0042 ####[facility] [address] [place], [place], [address] Trop T High Sen Normal <=14 [facility] Comment on above: Result Comment: NURS E SAID TO CANCEL. DO NOT NEED IT Performed By: #### L 499.0042 ####[facility] [address] [place], [address] Trop T Delta 6 Normal [facility] Comment on above: Result Comment: If c linical suspicion for ACS is high, suggest getting athird troponin. Otherwise, stress test or CTCA. Performed By: #### L 499.0042 ####[facility] [address] [place], [address] Trop T High Sen 26 ng/L High <=14 [facility] Comment on above: Performed By: #### L 499.0042 ####[facility] [address] [place], [address] L499.0043on 01-23-2025 Trop T Delta Normal [facility] Comment on above: Result Comment: NURS E SAID TO CANCEL DO NOT NEED Performed By: #### L 499.0043 ####[facility] [address] [place], [address] Trop T High Sen Normal <=14 [facility] Comment on above: Result Comment: NURS E SAID TO CANCEL DO NOT NEED Performed By: #### L 499.0043 ####[facility] [address] [place], [address] L501.4021on 01-23-2025 Trop T High Sen 20 ng/L High <=14 [facility] Comment on above: Performed By: #### L 501.4021 ####[facility] [address] [place], [address] L503.7505on 01-23-2025 Natriuretic peptide B (Bld) [Mass/Vol] 98 pg/mL Normal <=900 [facility] Comment on above: Result Comment: Hear t Failure Unlikely: < 300 pg/mLHeart Failure Likely< 50 Years: > 450 pg/mL50-75 Years: > 900 pg/mL>75 Years: > 1800 pg/mL HF Unlikely: <300 pg/mL HF Likely: <50 years: >450 pg/mL 50 - 75 years: >900 pg/mL >75 years: >1800 pg/mL Performed By: #### L 503.7505 ####[facility] [address] [place], [address] Laboratory - Chemistry and C hemistry - challengeOrdered By: Martha Long on 01-23-2025 Natriuretic peptide B (Bld) [Mass/Vol] 98 pg/mL <900 [facility] Comment on above: Heart Failure Unlike ly: < 300 pg/mLHeart Failure Likely< 50 Years: > 450 pg/mL50-75 Years: > 900 pg/mL>75 Years: > 1800 pg/mL HF Unlikely: <300 pg/mL HF Likely: <50 years: >450 pg/mL 50 - 75 years: >900 pg/mL >75 years: >1800 pg/mL Lactic Acidon 01-23-2025 Lactate [Moles/Vol] 1.4 mmol/L Normal 0.0-2.0 [facility] Comment on above: Order Comment: Y Performed By: #### M 200.1000, L100.0100, L500.4050, L503.6005, L300.3900, L300.4310 ####[facility] [address] [place], [address] Lactic acid measurementOrder ed By: Martha Long on 01-23-2025 Lactate [Moles/Vol] 1.4 mmol/L 0.0-2.0 [facility] M100.678on 01-23-2025 M100.678 SARS-CoV-2 (COVID 19 ) Negative INFLUENZA A Negative INFLUENZA B Negative RSV PCR Negative Normal [facility] Comment on above: Performed By: #### L 400.0001, M100.678, M100.2200 ####[facility] [address] [place], [address] Microscopic analysis of urin e for red blood cells (RBC)Ordered By: Martha Long on 01-23-2025 Microscopic analysis of urine for red blood cells (RBC) 5-10 SEEN /hpf 0-5 [facility] Urine RBC 5-10 SEEN /hpf 0-5 [facility] Mucus LM Ql (Urine sed)Order ed By: Martha Long on 01-23-2025 Mucus Ql (Urine sed) 1+ /hpf [facility] Nitrite Test strip Ql (U)Ord ered By: Martha Long on 01-23-2025 Nitrite Ql (U) Negative Negative [facility] No Panel InformationOrdered By: Martha Long on 01-23-2025 Delta Troponin T 6 [facility] Comment on above: If clinical suspicio n for ACS is high, suggest getting a third troponin. Otherwise, stress test or CTCA. 6 [facility] Troponin T High Sensitivity 20 ng/L High <14 [facility] 20 ng/L High <14 [facility] 98 pg/mL <900 [facility] Partial Thromboplast Timeon 01-23-2025 aPTT Coag (Bld) [Time] 27.7 s Normal 24.1-36.2 [facility] Comment on above: Performed By: #### L 300.4310, L300.3900 ####[facility] [address] [place], [address] aPTT Coag (Bld) [Time] 29.2 s Normal 24.1-36.2 [facility] Comment on above: Performed By: #### M 200.1000, L100.0100, L500.4050, L503.6005, L300.3900, L300.4310 ####[facility] [address] [place], [address] Protein Test strip Ql (U)Ord ered By: Martha Long on 01-23-2025 Protein Ql (U) 100 mg/dl High Negative [facility] Prothrombin Time w/INRon INR Coag (PPP) [Relative time] 1.2 {INR} Normal [facility] Comment on above: Performed By: #### L 300.4310, L300.3900 ####[facility] [address] [place], [address] PT Coag (PPP) [Time] 15.7 s High 11.7-14.9 [facility] Comment on above: Performed By: #### L 300.4310, L300.3900 ####[facility] [address] [place], [address] INR Coag (PPP) [Relative time] 1.1 {INR} Normal [facility] Comment on above: Performed By: #### M 200.1000, L100.0100, L500.4050, L503.6005, L300.3900, L300.4310 ####[facility] [address] [place], [address] PT Coag (PPP) [Time] 14.3 s Normal 11.7-14.9 [facility] Comment on above: Performed By: #### M 200.1000, L100.0100, L500.4050, L503.6005, L300.3900, L300.4310 ####[facility] [address] [place], [address] Prothrombin timeOrdered By: Martha Long on 01-23-2025 PT Coag (PPP) [Time] 15.7 s High 11.7-14.9 [facility] Squamous epithelial cells de tection in urine sediment by light microscopyOrdered By: Martha Long on 01-23-2025 Epithelial cells.squamous LM Ql (Urine sed) 0 SEEN /hpf 5-10 [facility] Troponin T.cardiac High sens itivity method [Mass/Vol]Ordered By: Martha Long on 01-23-2025 Troponin T High Sensitivity 4 Hour 23 ng/L High <14 [facility] Troponin T High Sensitivity 2 Hour 26 ng/L High <14 [facility] Troponin T.cardiac [Mass/vol ume] in Serum or Plasma by High sensitivity methodOrdered By: Martha Long on 01-23-2025 Troponin T.cardiac High sensitivity method [Mass/Vol] 23 ng/L High <14 [facility] Troponin T.cardiac High sensitivity method [Mass/Vol] 26 ng/L High <14 [facility] Urinalysis, Completeon 01-23 BACTERIA 1+ /hpf Normal None Seen [facility] Comment on above: Order Comment: DORE[facility] CTOR TO SPECIFY Performed By: #### L 400.0001, M100.678, M100.2200 ####[facility] [address] [place], [address] Mucus Ql (Urine sed) 1+ /hpf Normal [facility] Comment on above: Order Comment: DOREEN CTOR TO SPECIFY Performed By: #### L 400.0001, M100.678, M100.2200 ####[facility] [address] [place], [address] RBC 5-10 SEEN Normal 0-5 [facility] Comment on above: Order Comment: [facility] CTOR TO SPECIFY Performed By: #### L 400.0001, M100.678, M100.2200 ####[facility] [address] [place], [address] WBC 0-5 SEEN Normal 0-5 [facility] Comment on above: Order Comment: [facility] CTOR TO SPECIFY Performed By: #### L 400.0001, M100.678, M100.2200 ####[facility] [address] [place], [address] EPI,SQUAMOUS 0 SEEN Normal 5-10 [facility] Comment on above: Order Comment: DOREEN CTOR TO SPECIFY Performed By: #### L 400.0001, M100.678, M100.2200 ####[facility] [address] [place], [address] Urine blood detectionOrdered By: Martha Long on 01-23-2025 Urine Occult Blood 150 /ul High Negative [facility] Urine clarityOrdered By: Selene Long on 01-23-2025 Clarity (U) Clear Clear [facility] Urine color determinationOrd ered By: Martha Long on 01-23-2025 Color (U) Yellow Yellow [facility] Urine cultureOrdered By: Selene Long on 01-23-2025 Bacteria identified Cx Nom (U) Positive Abnormal [facility] Urine glucose detectionOrder ed By: Martha Long on 01-23-2025 Glucose Ql (U) Normal mg/dl Normal [facility] Urine leukocyte esterase det ection by dipstickOrdered By: Martha Long on 01-23-2025 Leukocyte esterase Test strip Ql (U) Negative Negative [facility] Urine pHOrdered By: Martha bay on 01-23-2025 pH (U) 6.0 [pH] 5.0 - 8.0 [facility] Urine sediment bacteria coun t by microscopy (number/high power field)Ordered By: Matrha Long on 01-23-2025 Bacteria LM.HPF (Urine sed) [#/Area] 1 /[HPF] None Seen [facility] Urine specific gravity measu rementOrdered By: Martha Long on 01-23-2025 Specific gravity (U) [Rel density] 1.020 1.002-1.030 [facility] Urine urobilinogen measureme ntOrdered By: Martha Long on 01-23-2025 Urobilinogen Ql (U) Normal mg/dl Normal [facility] Urobilinogen Ql (U)Ordered B y: Martha Long on 01-23-2025 Urine Urobilinogen Normal mg/dl Normal [facility] Venous Duplex US - Henrry Extre mon 01-23-2025 Venous Duplex US - Henrry Extrem Normal [facility] White blood cell countOrdere d By: Martha Long on 01-23-2025 Urine WBC 0-5 SEEN /hpf 0-5 [facility] White blood cell count 0-5 SEEN /hpf 0-5 [facility] .Auto Diffon 01-17-2025 Basophil, Absolute 0.1 10 3/mcL Normal 0.0-0.2 [facility] Comment on above: Performed By: #### B MP, GFR, CBC, CRP, ADIFF, ANEU, ESR #### [address] [address] Basophils/100 WBC (Bld) 0.6 % Normal 0.0-2.5 [facility] Comment on above: Performed By: #### B MP, GFR, CBC, CRP, ADIFF, ANEU, ESR #### [address] [address] Eosinophil, Absolute 0.3 10 3/mcL Normal 0.0-0.7 [facility] Comment on above: Performed By: #### B MP, GFR, CBC, CRP, ADIFF, ANEU, ESR #### [address] [address] Eosinophils/100 WBC (Bld) 3.2 % Normal 0.0-7.0 [facility] Comment on above: Performed By: #### B MP, GFR, CBC, CRP, ADIFF, ANEU, ESR #### [address] [address] Lymphocyte, Absolute 1.2 10 3/mcL Normal 0.9-4.3 [facility] Comment on above: Performed By: #### B MP, GFR, CBC, CRP, ADIFF, ANEU, ESR #### [address] [address] Lymphocytes/100 WBC (Bld) 11.8 % Low 20.0-40.0 [facility] Comment on above: Performed By: #### B MP, GFR, CBC, CRP, ADIFF, ANEU, ESR #### [address] [address] Monocyte, Absolute 1.0 10 3/mcL Normal 0.1-1.4 [facility] Comment on above: Performed By: #### B MP, GFR, CBC, CRP, ADIFF, ANEU, ESR #### [address] [address] Monocytes/100 WBC (Bld) 9.3 % Normal 2.0-13.0 [facility] Comment on above: Performed By: #### B MP, GFR, CBC, CRP, ADIFF, ANEU, ESR #### [address] [place], [place] [address] Neutrophils/100 WBC (Bld) 75.1 % High 50.0-75.0 [facility] Comment on above: Performed By: #### B MP, GFR, CBC, CRP, ADIFF, ANEU, ESR #### [address] [address] .GFRon 01-17-2025 Estimated Glomerular Filtration Rate 93 ml/min/1.73sqm Normal [facility] Comment on above: Result Comment: Stages of Chronic Kidney Disease (CKD) Stage Description eGFR(ml/min/1.73 sq.m.) CKD 1 Normal kidney function or >=90 normal kindney function with possible kidney damage (ex. Proteinuria) CKD 2 Kidney damage with mild loss 60-89 of kidney function CKD 3a Mild to moderate loss of kidney 45-59 function CKD 3b Moderate to severe loss of 30-44 of kindey function CKD 4 Severe loss of kidney function 15-29 CKD 5 Kidney failure <15 Note: (go live 2025) the eGFR calculation was updated to the 2020 CKD-EPI creatinine equation without a race factor to calculate the eGFR results. Performed By: #### B MP, GFR, CBC, CRP, ADIFF, ANEU, ESR #### [address] [address] .NEUABSon 01-17-2025 Neutrophil, Absolute 7.8 10 3/mcL Normal 2.3-8.1 [facility] Comment on above: Performed By: #### B MP, GFR, CBC, CRP, ADIFF, ANEU, ESR #### [place] [place] [place], [place] [address] BMPon 01-17-2025 BUN/Creatinine Ratio 24 ratio Normal 7-27 [facility] Comment on above: Performed By: #### B MP, GFR, CBC, CRP, ADIFF, ANEU, ESR #### [address] [place], [place] [address] Calcium [Mass/Vol] 9.3 mg/dL Normal 8.4-10.2 [facility] Comment on above: Performed By: #### B MP, GFR, CBC, CRP, ADIFF, ANEU, ESR #### [address] [address] Chloride [Moles/Vol] 103 mmol/L Normal 98-107 [facility] Comment on above: Performed By: #### B MP, GFR, CBC, CRP, ADIFF, ANEU, ESR #### [address] [address] CO2 [Moles/Vol] 30 mmol/L Normal 23-31 [facility] Comment on above: Performed By: #### B MP, GFR, CBC, CRP, ADIFF, ANEU, ESR #### [address] [address] Creatinine [Mass/Vol] 0.67 mg/dL Normal 0.55-1.02 [facility] Comment on above: Result Comment: Test ing performed on Siemens Dimension EXL analyzer using a modified kinetic Ollie technique. Performed By: #### B MP, GFR, CBC, CRP, ADIFF, ANEU, ESR #### [address] [address] Electrolyte Balance 7.0 mEq/L Normal 4.0-15.0 [facility] Comment on above: Performed By: #### B MP, GFR, CBC, CRP, ADIFF, ANEU, ESR #### [address] [address] Glucose [Mass/Vol] 108 mg/dL Normal 83-110 [facility] Comment on above: Performed By: #### B MP, GFR, CBC, CRP, ADIFF, ANEU, ESR #### [address] [address] Potassium [Moles/Vol] 4.2 mmol/L Normal 3.5-5.1 [facility] Comment on above: Performed By: #### B MP, GFR, CBC, CRP, ADIFF, ANEU, ESR #### [place] [id number] Sodium [Moles/Vol] 140 mmol/L Normal 136-145 [facility] Comment on above: Performed By: #### B MP, GFR, CBC, CRP, ADIFF, ANEU, ESR #### [place] [address] Urea nitrogen [Mass/Vol] 16 mg/dL Normal 7-18 [facility] Comment on above: Performed By: #### B MP, GFR, CBC, CRP, ADIFF, ANEU, ESR #### [place] [id number] CBCon 01-17-2025 Erythrocyte distribution width (RBC) [Ratio] 13.6 % Normal 11.5-15.5 [facility] Comment on above: Performed By: #### B MP, GFR, CBC, CRP, ADIFF, ANEU, ESR #### [place] [address] Hematocrit (Bld) [Volume fraction] 37.7 % Normal 34.0-46.0 [facility] Comment on above: Performed By: #### B MP, GFR, CBC, CRP, ADIFF, ANEU, ESR #### [address] [address] Hgb 12.8 G/dL Normal 12.0-16.0 [facility] Comment on above: Performed By: #### B MP, GFR, CBC, CRP, ADIFF, ANEU, ESR #### [address] [address] MCH (RBC) [Entitic mass] 29.8 pg Normal 27.0-33.0 [facility] Comment on above: Performed By: #### B MP, GFR, CBC, CRP, ADIFF, ANEU, ESR #### [place] [address] MCHC 33.9 G/dL Normal 32.0-36.0 [facility] Comment on above: Performed By: #### B MP, GFR, CBC, CRP, ADIFF, ANEU, ESR #### [place] [id number] MCV (RBC) [Entitic vol] 87.8 fL Normal 80.0-99.0 [facility] Comment on above: Performed By: #### B MP, GFR, CBC, CRP, ADIFF, ANEU, ESR #### [address] [address] Platelet 228 10 3/mcL Normal 150-450 [facility] Comment on above: Performed By: #### B MP, GFR, CBC, CRP, ADIFF, ANEU, ESR #### [place] [address] Platelet mean volume (Bld) [Entitic vol] 8.5 fL Normal 6.6-10.5 [facility] Comment on above: Performed By: #### B MP, GFR, CBC, CRP, ADIFF, ANEU, ESR #### [place] [address] RBC 4.29 10 6/mcL Normal 4.10-5.30 [facility] Comment on above: Performed By: #### B MP, GFR, CBC, CRP, ADIFF, ANEU, ESR #### [address] [address] WBC 10.4 10 3/mcL Normal 4.5-10.8 [facility] Comment on above: Performed By: #### B MP, GFR, CBC, CRP, ADIFF, ANEU, ESR #### [address] [address] CRPon 01-17-2025 C-Reactive Protein 0.6 mg/dL High 0.0-0.3 [facility] Comment on above: Performed By: #### B MP, GFR, CBC, CRP, ADIFF, ANEU, ESR #### [address] [address] ESRon 01-17-2025 Erythrocyte Sed Rate 14 mm/hr Normal 0-30 [facility] Comment on above: Performed By: #### B MP, GFR, CBC, CRP, ADIFF, ANEU, ESR #### [address] [address] LABORATORYOrdered By: SYSTEM SYSTEM on 01-17-2025 Basophils (Bld) [#/Vol] 0.1 103/mcL Normal 0.0 - 0.2 10^3/mcL AO Workflow SS Basophils/100 WBC (Bld) 0.6 % Normal 0.0 - 2.5 % AO Workflow SS Calcium [Mass/Vol] 9.3 mg/dL Normal 8.4 - 10. 2 mg/dL AO ADM SS Chloride [Moles/Vol] 103 mmol/L Normal 98 - 10 7 mmol/L AO ADM SS CO2 [Moles/Vol] 30 mmol/L Normal 23 - 31 mmol/L AO ADM SS Creatinine [Mass/Vol] 0.67 mg/dL Normal 0.55 - 1.02 mg/dL AO ADM SS Comment on above: Interpretive Data: T esting performed on [employer] Dimension EXL analyzer using a modified kinetic Ollie technique. CRP [Mass/Vol] 0.6 mg/dL High 0.0 - 0.3 mg/dL AO ADM SS Electrolyte Balance 7.0 mEq/L Normal 4.0 - 15 .0 mEq/L AO ADM SS Eosinophil, Absolute 0.3 103/mcL Normal 0.0 - 0 .7 10^3/mcL AO Workflow SS Eosinophils/100 WBC (Bld) 3.2 % Normal 0.0 - 7.0 % AO Workflow SS Erythrocyte distribution width (RBC) [Ratio] 13.6 % Normal 11.5 - 15.5 % AO Workflow SS Estimated Glomerular Filtration Rate 93 ml/min/1.73sqm Invalid Interpretation Code AO Chemistry S Comment on above: Interpretive Data: Stages of Chronic Kidney Disease (CKD) Stage Description eGFR(ml/min/1.73 sq.m.) CKD 1 Normal kidney function or >=90 normal kindney function with possible kidney damage (ex. Proteinuria) CKD 2 Kidney damage with mild loss 60-89 of kidney function CKD 3a Mild to moderate loss of kidney 45-59 function CKD 3b Moderate to severe loss of 30-44 of kindey function CKD 4 Severe loss of kidney function 15-29 CKD 5 Kidney failure <15 Note: (go live 2025) the eGFR calculation was updated to the 2020 CKD-EPI creatinine equation without a race factor to calculate the eGFR results. Glucose [Mass/Vol] 108 mg/dL Normal 83 - 110 mg/dL AO ADM SS Hematocrit (Bld) [Volume fraction] 37.7 % Normal 34.0 - 46.0 % AO Workflow SS Hemoglobin (Bld) [Mass/Vol] 12.8 G/dL Normal 12.0 - 16.0 G/dL AO Workflow SS Lymphocytes (Bld) [#/Vol] 1.2 103/mcL Normal 0.9 - 4.3 10^3/mcL AO Workflow SS Lymphocytes/100 WBC (Bld) 11.8 % Low 20.0 - 40.0 % AO Workflow SS MCH (RBC) [Entitic mass] 29.8 pg Normal 27.0 - 33.0 pg AO Workflow SS MCHC 33.9 G/dL Normal 32.0 - 36.0 G/dL AO Workflow SS MCV (RBC) [Entitic vol] 87.8 fL Normal 80.0 - 99.0 fL AO Workflow SS Monocytes (Bld) [#/Vol] 1.0 103/mcL Normal 0.1 - 1.4 10^3/mcL AO Workflow SS Monocytes/100 WBC (Bld) 9.3 % Normal 2.0 - 13.0 % AO Workflow SS Neutrophils (Bld) [#/Vol] 7.8 103/mcL Normal 2.3 - 8.1 10^3/mcL AO Workflow SS Neutrophils/100 WBC (Bld) 75.1 % High 50.0 - 75.0 % AO Workflow SS Platelet mean volume (Bld) [Entitic vol] 8.5 fL Normal 6.6 - 10.5 fL AO Workflow SS Platelets (Bld) [#/Vol] 228 103/mcL Normal 150 - 450 10^3/mcL AO Workflow SS Potassium [Moles/Vol] 4.2 mmol/L Normal 3.5 - 5.1 mmol/L AO ADM SS RBC (Bld) [#/Vol] 4.29 106/mcL Normal 4.10 - 5.3 0 10^6/mcL AO Workflow SS Sodium [Moles/Vol] 140 mmol/L Normal 136 - 145 mmol/L AO ADM SS Urea nitrogen [Mass/Vol] 16 mg/dL Normal 7 - 18 mg/dL AO ADM SS Urea nitrogen/Creatinine [Mass ratio] 24 ratio Normal 7 - 27 ratio AO ADM SS WBC (Bld) [#/Vol] 10.4 103/mcL Normal 4.5 - 10.8 10^3/mcL AO Workflow SS LABORATORYOrdered By: Teresa Mullen on 01-17-2025 ESR Photometric method (Bld) [Velocity] 14 mm/hr Normal 0 - 30 mm/hr AO Man Heme SS LABORATORYOrdered By: Marlyn Highy on 01-17-2025 MRSA (PCR) Not Detected 1 (01/17/25 2:25 PM) Normal Not Detected Auto Viro/Sero SS Comment on above: Result Comment: [place] [id number] MRSA PCR Int MRSA DNA not detecte d by Real-Time Polymerase Chain Reaction (PCR). A negative result may be due to intermittent colonization. Colonization may vary depending on patient treatment, patient status, or exposure to high-risk environments.As with all PCR based in vitro diagnostic tests, extremely low levels of target below the limit of detection of the assay may be detected, but results may not be reproducible. Invalid Interpretation Code Auto Viro/Sero SS MRSAPCRon 01-17-2025 MRSA (PCR) Not detected Normal Not Detected [facility] Comment on above: Result Comment: [place] [id number] Performed By: #### M RSAPCR #### [address] [address] MRSA PCR Int Normal [facility] Comment on above: Result Comment: MRSA DNA not detected by Real-Time Polymerase Chain Reaction (PCR). A negative result may be due to intermittent colonization. Colonization may vary depending on patient treatment, patient status, or exposure to high-risk environments. As with all PCR based in vitro diagnostic tests, extremely low levels of target below the limit of detection of the assay may be detected, but results may not be reproducible. See Below Performed By: #### M RSAPCR #### [address] [address] [address] KNEE W/O CONTRAST LEFTon 10-23-2024 CT KNEE W/O CONTRAST LEFT ORIGINAL EXAMINATION: CT OF THE LEFT KNEE WITHOUT UBKGPCXS75/25/2024 9:[address] KNEE LEFT WITHOUT CONTRAST TECHNIQUE: CT of the left knee was performed without the administration of intravenous contrast. Multiplanar reformatted images are provided for review. Automated exposure control, iterative reconstruction, and/or weight based adjustment of the mA/kV was utilized to reduce the radiation dose to as low as reasonably achievable. MA KO protocol was performed with axial images through the left hip and left ankle. COMPARISON: None available HISTORY: ORDERING SYSTEM PROVIDED HISTORY: Reason for Exam: Unilateral primary osteoarthritis, left knee Chronic pain lt knee. NKI. CONCEPCION protocol. FINDINGS: There is no acute fracture or dislocation. No suspicious osseous lesions. Severe tricompartmental osteoarthritis of the left knee most pronounced in the medial compartment with [id number], subchondral sclerosis, subchondral cysts and marginal osteophyte formation. There is spurring of the tibial spines and intercondylar notch. Lateral coronal tibiofemoral subluxation. Small to moderate knee joint effusion. Pubic symphysis is maintained. Moderate to severe left femoroacetabular joint space narrowing. Bilateral bipartite accessory navicularis. The Achilles tendon is thickened distally, correlate for Achilles tendinosis. Limited evaluation of the neuro vasculature with lack of contrast. IMPRESSION: Severe tricompartmental osteoarthritis of the left knee with bone on bone contact of the medial tibiofemoral joint compartment, in patient presenting for preop planning. Small to moderate knee joint effusion. Additional incidental details as above. I have personally reviewed the images of this examination and agree with the resident's findings and interpretation. Interpreted by: Ilene Orourke Preliminary Report By: Jaiden Maier Electronically signed By Ilene Orourke Dictated Date: 10/23/2024 4:20:57 PM Prelim Date: 10/23/2024 4:58:41 PM Sign Date: 10/23/2024 4:58:41 PM Ordering Provider: BRIA GAN Normal [facility] CBC W Auto Differential pane l (Bld)on 10-18-2024 Basophils (Bld) [#/Vol] 0.06 x10*3/uL Normal 0.00-0.10 [facility] Comment on above: Performed By: #### 5 7021-8 #### PAT YUEN L ([id number]) [facility] ([facility]) [address] [place] [address] Basophils/100 WBC (Bld) 0.9 % Normal 0.0-2.0 [facility] Comment on above: Performed By: #### 5 7021-8 #### PAT YUEN L ([id number]) [facility] ([facility]) [address] [place] [address] Eosinophils (Bld) [#/Vol] 0.24 x10*3/uL Normal 0.00-0.40 [facility] Comment on above: Performed By: #### 5 7021-8 #### PAT Smith ([id number]) [facility] ([facility]) [address] [place] [address] Eosinophils/100 WBC (Bld) 3.7 % Normal 0.0-6.0 [facility] Comment on above: Performed By: #### 5 7021-8 #### PAT Smith ([id number]) [facility] ([facility]) [address] [place] [address] Erythrocyte distribution width (RBC) [Ratio] 13.0 % Normal 11.5-14.5 [facility] Comment on above: Performed By: #### 5 7021-8 #### PAT Smith ([id number]) [facility] ([facility]) [address] [place] [address] Hematocrit (Bld) [Volume fraction] 43.7 % Normal 36.0-46.0 [facility] Comment on above: Performed By: #### 5 7021-8 #### PAT Smith ([id number]) [facility] ([facility]) [address] [place] [address]19[address] Hemoglobin (Bld) [Mass/Vol] 14.1 g/dL Normal 12.0-16.0 [facility] Comment on above: Performed By: #### 5 7021-8 #### PAT Smith ([id number]) [facility] ([facility]) [address] [place] [address]043 Immature granulocytes (Bld) [#/Vol] 0.02 x10*3/uL Normal 0.00-0.50 [facility] Comment on above: Performed By: #### 5 7021-8 #### PAT Smith ([id number]) [facility] ([facility]) [address] [place] [address] 27018 Immature granulocytes/100 WBC (Bld) 0.3 % Normal 0.0-0.9 [facility] Comment on above: Result Comment: Sandra ture Granulocyte Count (IG) includes promyelocytes, myelocytes and metamyelocytes but does not include bands. Percent differential counts (%) should be interpreted in the context of the absolute cell counts (cells/UL). Performed By: #### 5 7021-8 #### PAT Smith ([id number]) [facility] ([facility]) [address] [place] [address] Lymphocytes (Bld) [#/Vol] 1.36 x10*3/uL Normal 0.80-3.00 [facility] Comment on above: Performed By: #### 5 7021-8 #### PAT Smith ([id number]) [facility] ([facility]) [address] [place] [address] Lymphocytes/100 WBC (Bld) 20.7 % Normal 13.0-44.0 [facility] Comment on above: Performed By: #### 5 7021-8 #### PAT Smith ([id number]) [facility] ([facility]) [address] [place] [address] MCH (RBC) [Entitic mass] 29.1 pg Normal 26.0-34.0 [facility] Comment on above: Performed By: #### 5 7021-8 #### PAT Smith ([id number]) [facility] ([facility]) [address] [place] [address] MCHC (RBC) [Mass/Vol] 32.3 g/dL Normal 32.0-36.0 [facility] Comment on above: Performed By: #### 5 7021-8 #### PAT Smith ([id number]) [facility] ([facility]) [address] [place] [address] MCV (RBC) [Entitic vol] 90 fL Normal 80-100 [facility] Comment on above: Performed By: #### 5 7021-8 #### PAT Smith ([id number]) [facility] ([facility]) [address] [place] [address]366 Monocytes (Bld) [#/Vol] 0.63 x10*3/uL Normal 0.05-0.80 [facility] Comment on above: Performed By: #### 5 7021-8 #### PAT Smith ([id number]) [facility] ([facility]) [address] [place] [address] Monocytes/100 WBC (Bld) 9.6 % Normal 2.0-10.0 [facility] Comment on above: Performed By: #### 5 7021-8 #### PAT YUEN L ([id number]) [facility] ([facility]) [address] [place] [address] Neutrophils (Bld) [#/Vol] 4.25 x10*3/uL Normal 1.60-5.50 [facility] Comment on above: Result Comment: Perc ent differential counts (%) should be interpreted in the context of the absolute cell counts (cells/uL). Performed By: #### 5 7021-8 #### PAT YUEN L ([id number]) [facility] ([facility]) [address] [place] [address] Neutrophils/100 WBC (Bld) 64.8 % Normal 40.0-80.0 [facility] Comment on above: Performed By: #### 5 7021-8 #### PAT YUEN L ([id number]) [facility] ([facility]) [address] [place] [address] Nucleated RBC/100 WBC (Bld) [Ratio] 0.0 /100 WBCs Normal 0.0-0.0 [facility] Comment on above: Performed By: #### 5 7021-8 #### PAT SEOMOTZER L ([id number]) [facility] ([facility]) [address] [place] [address] Platelets (Bld) [#/Vol] 243 x10*3/uL Normal 150-450 [facility] Comment on above: Performed By: #### 5 7021-8 #### PAT SEOMOTZER L ([id number]) [facility] ([facility]) [address] [place] [address] RBC (Bld) [#/Vol] 4.84 x10*6/uL Normal 4.00-5.20 [facility] Comment on above: Performed By: #### 5 7021-8 #### PAT Smith ([id number]) [facility] ([facility]) [address] [place] [address] WBC (Bld) [#/Vol] 6.6 x10*3/uL Normal 4.4-11.3 [facility] Comment on above: Performed By: #### 5 7021-8 #### PAT Smith ([id number]) [facility] ([facility]) [address] [place] [address] Comprehensive metabolic 2000 panelon 10-18-2024 Albumin BCP dye [Mass/Vol] 4.4 g/dL Normal 3.4-5.0 [facility] Comment on above: Performed By: #### 2 4323-8 #### PAT Smith ([id number]) [facility] ([facility]) [address] [place] [address] ALP [Catalytic activity/Vol] 71 U/L Normal 33-136 [facility] Comment on above: Performed By: #### 2 4323-8 #### PAT Smith ([id number]) [facility] ([facility]) [address] [place] [address] ALT With P-5'-P [Catalytic activity/Vol] 15 U/L Normal 7-45 [facility] Comment on above: Result Comment: Alexsandra ents treated with Sulfasalazine may generate falsely decreased results for ALT. Performed By: #### 2 4323-8 #### PAT Smith ([id number]) [facility] ([facility]) [address] [place] [address] Anion gap [Moles/Vol] 13 mmol/L Normal 10-20 [facility] Comment on above: Performed By: #### 2 4323-8 #### PAT Smith ([id number]) [facility] ([facility]) [address] [place] [address] AST With P-5'-P [Catalytic activity/Vol] 15 U/L Normal 9-39 [facility] Comment on above: Performed By: #### 2 4323-8 #### PAT Smith ([id number]) [facility] ([facility]) [address] [place] [address] Bilirubin [Mass/Vol] 0.5 mg/dL Normal 0.0-1.2 [facility] Comment on above: Performed By: #### 2 4323-8 #### PAT Smith ([id number]) [facility] ([facility]) [address] [place] [address] Calcium [Mass/Vol] 9.5 mg/dL Normal 8.6-10.6 [facility] Comment on above: Performed By: #### 2 4323-8 #### PAT Smith ([id number]) [facility] ([facility]) [address] [place] [address] Chloride [Moles/Vol] 103 mmol/L Normal 98-107 [facility] Comment on above: Performed By: #### 2 4323-8 #### PAT Smith ([id number]) [facility] ([facility]) [address] [place] [address] CO2 [Moles/Vol] 27 mmol/L Normal 21-32 [facility] Comment on above: Performed By: #### 2 4323-8 #### PAT Smith ([id number]) [facility] ([facility]) [address] [place] [address] Creatinine [Mass/Vol] 0.65 mg/dL Normal 0.50-1.05 [facility] Comment on above: Performed By: #### 2 4323-8 #### PAT Smith ([id number]) [facility] ([facility]) [address] [place] [address] GFR/1.73 sq M.predicted MDRD (S/P/Bld) [Vol rate/Area] mL/min/{1.73_m2} Normal >60 [facility] Comment on above: Result Comment: Calc ulations of estimated GFR are performed using the 2020 CKD-EPI Study Refit equation without the race variable for the IDMS-Traceable creatinine methods. https://jasn.asnjournals.org/content//ASN.2020 980676 Performed By: #### 2 4323-8 #### PAT Smith ([id number]) [facility] ([facility]) [address] [place] [address] Glucose [Mass/Vol] 96 mg/dL Normal 74-99 [facility] Comment on above: Performed By: #### 2 4323-8 #### PAT Smith ([id number]) [facility] ([facility]) [address] [place] [address] Potassium [Moles/Vol] 4.4 mmol/L Normal 3.5-5.3 [facility] Comment on above: Performed By: #### 2 4323-8 #### PAT Smith ([id number]) [facility] ([facility]) [address] [place] [address] Protein [Mass/Vol] 7.2 g/dL Normal 6.4-8.2 [facility] Comment on above: Performed By: #### 2 4323-8 #### PAT Smith ([id number]) [facility] ([facility]) [address] [place] [address] Sodium [Moles/Vol] 139 mmol/L Normal 136-145 [facility] Comment on above: Performed By: #### 2 4323-8 #### PAT Smith ([id number]) [facility] ([facility]) [address] [place] [address]473 Urea nitrogen [Mass/Vol] 14 mg/dL Normal 6-23 [facility] Comment on above: Performed By: #### 2 4323-8 #### PAT Smith ([id number]) [facility] ([facility]) [address] [place] [address] Lipid 1996 panelon 4 Cholesterol [Mass/Vol] 282 mg/dL High 0-199 Un [facility] Comment on above: Result Comment: Age Desirable Borderline High High 0-19 Y 0 - 169 170 - 199 >/= 200 20-24 Y 0 - 189 190 - 224 >/= 225 >24 Y 0 - 199 200 - 239 >/= 240 All ranges are based on fasting samples. Specific therapeutic targets will vary based on patient-specific cardiac risk. Pediatric guidelines reference:Pediatrics 2011, 128(S5).Adult guidelines reference: NCEP ATPIII Guidelines,SABINE 2001, 258:2486-97 Venipuncture immediately after or during the administration of Metamizole may lead to falsely low results. Testing should be performed immediately prior to Metamizole dosing. Performed By: #### 2 4331-1 #### PAT Smith ([id number]) [facility] ([facility]) [address] [place] [address] 15674 Cholesterol in HDL [Mass/Vol] 63.4 mg/dL Normal [facility] Comment on above: Result Comment: Age Very Low Low Normal High 0-19 Y < 35 < 40 40-45 ---- 20-24 Y ---- < 40 >45 ---- >24 Y ---- < 40 40-60 >60 Performed By: #### 2 4331-1 #### PAT Smith ([id number]) [facility] ([facility]) [address] [place] [address] Cholesterol in LDL [Mass/Vol] 199 mg/dL High <=99 [facility] Comment on above: Result Comment: Near Borderline AGE Desirable Optimal High High Very High 0-19 Y 0 - 109 --- 110-129 >/= 130 ---- 20-24 Y 0 - 119 --- 120-159 >/= 160 ---- >24 Y 0 - 99 100-129 130-159 160-189 >/=190 Performed By: #### 2 4331-1 #### PAT Smith ([id number]) [facility] ([facility]) [address] [place] [address] Cholesterol in VLDL [Mass/Vol] 19 mg/dL Normal 0-40 [facility] Comment on above: Performed By: #### 2 4331-1 #### PAT Smith ([id number]) [facility] ([facility]) [address] [place] [address] CHOLESTEROL/HDL RATIO 4.4 Normal [facility] Comment on above: Result Comment: Ref Values Desirable < 3.4 High Risk > 5.0 Performed By: #### 2 4331-1 #### PAT Smith ([id number]) [facility] ([facility]) [address] [place] [address] NON HDL CHOLESTEROL 219 mg/dL High 0-149 [facility] Comment on above: Result Comment: Age Desirable Borderline High High Very High 0-19 Y 0 - 119 120 - 144 >/= 145 >/= 160 20-24 Y 0 - 149 150 - 189 >/= 190 ---- >24 Y 30 mg/dL above LDL Cholesterol goal Performed By: #### 2 4331-1 #### PAT Smith ([id number]) [facility] ([facility]) [address] [place] [address] Triglyceride [Mass/Vol] 97 mg/dL Normal 0-149 [facility] Comment on above: Result Comment: Age Desirable Borderline High Very High SEX:B mg/dL mg/dL mg/dL mg/dL <=14D 86-277 ---- ---- ---- 15D-365D 55-277 ---- ---- ---- 1Y-9Y 0-74 75-99 >=100 ---- 10Y-19Y 0-89 90-129 >=130 ---- 20Y-24Y 0-114 115-149 >=150 ---- >= 25Y 0-149 150-199 200-499 >=500 Venipuncture immediately after or during the administration of Metamizole may lead to falsely low results. Testing should be performed immediately prior to Metamizole dosing. Performed By: #### 2 4331-1 #### PAT Smith ([id number]) [facility] ([facility]) [address] [place] [address]58 TSH WITH REFLEX TO FREE T4 I F ABNORMALon 10-18-2024 TSH Qn 1.15 m[IU]/L Normal 0.44-3.98 [facility] Comment on above: Order Comment: TSH t esting is performed using different testing methodology at [facility] than at other [facility]. Direct result comparisons should only be made within the same method. Performed By: #### T HYDS #### PAT Smith ([id number]) [facility] ([facility]) [address] [place] [address] CBC AND DIFFERENTIALon 08-10 % AUTOMATED IMMATURE GRAN 0.3 % Normal 0.0 - 0.9 [facility] Comment on above: Result Comment: Perc ent differential counts (%) should be interpreted in the context of the absolute cell counts (cells/L). Performed By: #### C BCDF #### [facility] [address] [place] [address] Basophils (Bld) [#/Vol] 0.07 10*3/uL Normal 0.00 - 0.1 0 [facility] Comment on above: Performed By: #### C BCDF #### [facility] [address] [place] [address] Basophils/100 WBC (Bld) 1.0 % Normal 0.0 - 2.0 [facility] Comment on above: Performed By: #### C BCDF #### [facility] [address] [place] [address] Eosinophils (Bld) [#/Vol] 0.17 10*3/uL Normal 0.00 - 0.70 [facility] Comment on above: Performed By: #### C BCDF #### [facility] [address] [place] [address] Eosinophils/100 WBC (Bld) 2.3 % Normal 0.0 - 6.0 [facility] Comment on above: Performed By: #### C BCDF #### [facility] [address] [place] [address] Erythrocyte distribution width (RBC) [Ratio] 13.3 % Normal 11.5 - 14.5 [facility] Comment on above: Performed By: #### C BCDF #### [facility] [address] [place] [address] Hematocrit (Bld) [Volume fraction] 44.5 % Normal 36.0 - 46.0 [facility] Comment on above: Performed By: #### C BCDF #### [facility] [address] [place] [address] Hemoglobin (Bld) [Mass/Vol] 14.0 g/dL Normal 12.0 - 16.0 [facility] Comment on above: Performed By: #### C BCDF #### [facility] [address] [place] [address] Lymphocytes (Bld) [#/Vol] 1.44 10*3/uL Normal 1.20 - 4.80 [facility] Comment on above: Performed By: #### C BCDF #### [facility] [address] [place] [address] Lymphocytes/100 WBC (Bld) 19.7 % Normal 13.0 - 44.0 [facility] Comment on above: Performed By: #### C BCDF #### [facility] [address] [place] [address] MCHC (RBC) [Mass/Vol] 31.5 g/dL Low 32.0 - 36.0 [facility] Comment on above: Performed By: #### C BCDF #### [facility] [address] [place] [address] MCV (RBC) [Entitic vol] 92 fL Normal 80 - 100 [facility] Comment on above: Performed By: #### C BCDF #### [facility] [address] [place] [address] Monocytes (Bld) [#/Vol] 0.76 10*3/uL Normal 0.10 - 1.0 0 [facility] Comment on above: Performed By: #### C BCDF #### [facility] [address] [place] [address] Monocytes/100 WBC (Bld) 10.4 % Normal 2.0 - 10.0 [facility] Comment on above: Performed By: #### C BCDF #### [facility] [address] [place] [address] Neutrophils (Bld) [#/Vol] 4.86 10*3/uL Normal 1.20 - 7.70 [facility] Comment on above: Performed By: #### C BCDF #### [facility] [address] [place] [address] Neutrophils/100 WBC (Bld) 66.3 % Normal 40.0 - 80.0 [facility] Comment on above: Performed By: #### C BCDF #### [facility] [address] [place] [address] Nucleated RBC/100 WBC (Bld) [Ratio] 0.0 /100 WBC Normal 0.0-0.0 [facility] Comment on above: Performed By: #### C BCDF #### [facility] [address] [place] [address] Platelets (Bld) [#/Vol] 232 10*3/uL Normal 150 - 450 [facility] Comment on above: Performed By: #### C BCDF #### [facility] [address] [place] [address] RBC (Bld) [#/Vol] 4.83 x10E12/L Normal 4.00 - 5.20 [facility] Comment on above: Performed By: #### C BCDF #### [facility] [address] [place] [address] WBC (Bld) [#/Vol] 7.3 10*3/uL Normal 4.4 - 11.3 [facility] Comment on above: Performed By: #### C BCDF #### [facility] [address] [place] [address] COMPREHENSIVE PANELon 2018 Albumin [Mass/Vol] 4.1 g/dL Normal 3.4 - 5.0 [facility] Comment on above: Performed By: #### C MP #### [facility] [address] [place] [address] ALT [Catalytic activity/Vol] 19 U/L Normal 7 - 45 [facility] Comment on above: Result Comment: Alexsandra ents treated with Sulfasalazine may generate falsely decreased results for ALT. Performed By: #### C MP #### [facility] [address] [place] [address] AST [Catalytic activity/Vol] 19 U/L Normal 9 - 39 [facility] Comment on above: Performed By: #### C MP #### [facility] [address] [place] [address] GFR- AM. >60 Normal >60 [facility] Comment on above: Result Comment: CALC ULATIONS OF ESTIMATED GFR ARE PERFORMED USING THE MDRD STUDY EQUATION FOR THE IDMS-TRACEABLE CREATININE METHODS. CLIN CHEM 2007;53:766-72 Performed By: #### C MP #### [facility] [address] [place] [address] GFR-NON AM. >60 Normal >60 [facility] Comment on above: Performed By: #### C MP #### [facility] [address] [place] [address] HCO3 (Bld) [Moles/Vol] 29 mmol/L Normal 21 - 32 [facility] Comment on above: Performed By: #### C MP #### [facility] [address] [place] [address] ALP [Catalytic activity/Vol] 87 U/L 33 - 136 [facility] Comment on above: Performed By: #### C MP #### [facility] [address] [place] [address] Anion gap [Moles/Vol] 10 mmol/L 10 - 20 [facility] Comment on above: Performed By: #### C MP #### [facility] [address] [place] [address] Bilirubin [Mass/Vol] 0.4 mg/dL 0.0 - 1.2 [facility] Comment on above: Performed By: #### C MP #### [facility] [address] [place] [address] Calcium [Mass/Vol] 9.3 mg/dL 8.6 - 10.6 [facility] Comment on above: Performed By: #### C MP #### [facility] [address] [place] [address] Chloride [Moles/Vol] 106 mmol/L 98 - 107 [facility] Comment on above: Performed By: #### C MP #### [facility] [address] [place] [address] Creatinine [Mass/Vol] 0.66 mg/dL See Below [facility] Comment on above: Performed By: #### C MP #### [facility] [address] [place] [address] Reference Range: 0.5 0 - 1.05 Glucose [Mass/Vol] 95 mg/dL 74 - 99 [facility] Comment on above: Performed By: #### C MP #### [facility] [address] [place] [address] Potassium [Moles/Vol] 4.2 mmol/L 3.5 - 5.3 [facility] Comment on above: Performed By: #### C MP #### [facility] [address] [place] [address] Protein [Mass/Vol] 7.0 g/dL 6.4 - 8.2 [facility] Comment on above: Performed By: #### C MP #### [facility] [address] [place] [address] Sodium [Moles/Vol] 141 mmol/L 136 - 145 [facility] Comment on above: Performed By: #### C MP #### [facility] [address] [place] [address] Urea nitrogen [Mass/Vol] 12 mg/dL 6 - 23 [facility] Comment on above: Performed By: #### C MP #### [facility] [address] [place] [address] Complete Blood Count + Diffe rentialon 08-10-2019 Basophils (Bld) [#/Vol] 0.07 {x10E9/L} See Belo w [facility] Work Phone: Comment on above: Reference Range: 0.0 0 - 0.10 Basophils/100 WBC (Bld) 1.0 % 0.0 - 2.0 [facility] Work Phone: Eosinophils (Bld) [#/Vol] 0.17 {x10E9/L} See Below [facility] Work Phone: Comment on above: Reference Range: 0.0 0 - 0.70 Eosinophils/100 WBC (Bld) 2.3 % 0.0 - 6.0 [facility] Work Phone: Erythrocyte distribution width (RBC) [Ratio] 13.3 % See Below [facility] Work Phone: Comment on above: Reference Range: 11. 5 - 14.5 Hematocrit (Bld) [Volume fraction] 44.5 % See Below [facility] Work Phone: Comment on above: Reference Range: 36. 0 - 46.0 Hemoglobin (Bld) [Mass/Vol] 14.0 g/dL See Below [facility] Work Phone: Comment on above: Reference Range: 12. 0 - 16.0 Lymphocytes (Bld) [#/Vol] 1.44 {x10E9/L} See Below [facility] Work Phone: Comment on above: Reference Range: 1.2 0 - 4.80 Lymphocytes/100 WBC (Bld) 19.7 % See Below [facility] Work Phone: Comment on above: Reference Range: 13. 0 - 44.0 MCHC (RBC) [Mass/Vol] 31.5 g/dL below low threshold See Below [facility] Work Phone: Comment on above: Reference Range: 32. 0 - 36.0 MCV (RBC) [Entitic vol] 92 fL 80 - 100 [facility] Work Phone: Monocytes (Bld) [#/Vol] 0.76 {x10E9/L} See Edd w [facility] Work Phone: Comment on above: Reference Range: 0.1 0 - 1.00 Monocytes/100 WBC (Bld) 10.4 % 2.0 - 10.0 [facility] Work Phone: Neutrophils (Bld) [#/Vol] 4.86 {x10E9/L} See Below [facility] Work Phone: Comment on above: Reference Range: 1.2 0 - 7.70 Neutrophils/100 WBC (Bld) 66.3 % See Below [facility] Work Phone: Comment on above: Reference Range: 40. 0 - 80.0 Platelets (Bld) [#/Vol] 232 {x10E9/L} 150 - 450 [facility] Work Phone: RBC (Bld) [#/Vol] 4.83 {x10E12/L} See Below [facility] Work Phone: Comment on above: Reference Range: 4.0 0 - 5.20 WBC (Bld) [#/Vol] 7.3 {x10E9/L} 4.4 - 11.3 [facility] Work Phone: WBC (Bld) [#/Vol] 0.0 {/100_WBC} 0.0-0.0 [facility] Work Phone: Complete Blood Count + Differential 0.3 % 0.0 - 0.9 [facility] Work Phone: Comment on above: Percent differential counts (%) should be interpreted in the context of the absolute cell counts (cells/L). LIPID PANEL (CORONARY RISK 2 )on 08-10-2019 Cholesterol in VLDL [Mass/Vol] 17 mg/dL Normal 0 - 40 [facility] Comment on above: Performed By: #### L IPID #### [facility] [address] [place] [id number] Cholesterol [Mass/Vol] 206 mg/dL above hig h threshold 0 - 199 [facility] Comment on above: Result Comment: . AGE DESIRABLE BORDERLINE HIGH HIGH 0-19 Y 0 - 169 170 - 199 >/= 200 20-24 Y 0 - 189 190 - 224 >/= 225 >24 Y 0 - 199 200 - 239 >/= 240 All ranges are based on fasting samples. Specific therapeutic targets will vary based on patient-specific cardiac risk. . Pediatric guidelines reference:Pediatrics 2011, 128(S5). Adult guidelines reference: NCEP ATPIII Guidelines, SABINE 2001, 258:2486-97 . Venipuncture immediately after or during the administration of Metamizole may lead to falsely low results. Testing should be performed immediately prior to Metamizole dosing. Performed By: #### L IPID #### [facility] [address] [place] [address] . AGE DESIRABLE BORD CATHLEEN HIGH HIGH 0-19 Y 0 - 169 170 - 199 >/= 200 20-24 Y 0 - 189 190 - 224 >/= 225 >24 Y 0 - 199 200 - 239 >/= 240 All ranges are based on fasting samples. Specific therapeutic targets will vary based on patient-specific cardiac risk.. Pediatric guidelines reference:Pediatrics 2010, 128(S5). Adult guidelines reference: NCEP ATPIII Guidelines, SABINE 2001, 258:2486-97. Venipuncture immediately after or during the administration of Metamizole may lead to falsely low results. Testing should be performed immediately prior to Metamizole dosing. Cholesterol in HDL [Mass/Vol] 46.7 mg/dL [facility] Comment on above: Result Comment: . AGE VERY LOW LOW NORMAL HIGH 0-19 Y < 35 < 40 40-45 ---- 20-24 Y ---- < 40 >45 ---- >24 Y ---- < 40 40-60 >60 . Performed By: #### L IPID #### [facility] [address] [place] [id number] . AGE VERY LOW LOW N ORMAL HIGH 0-19 Y < 35 < 40 40-45 ---- 20-24 Y ---- < 40 >45 ---- >24 Y ---- < 40 40-60 >60. Cholesterol in LDL [Mass/Vol] 142 mg/dL above high threshold 0 - 99 [facility] Comment on above: Result Comment: . NEAR BORD AGE DESIRABLE OPTIMAL HIGH HIGH VERY HIGH 0-19 Y 0 - 109 --- 110-129 >/= 130 ---- 20-24 Y 0 - 119 --- 120-159 >/= 160 ---- >24 Y 0 - 99 100-129 130-159 160-189 >/=190 . Performed By: #### L IPID #### [facility] [address] [place] [id number] . NEAR BORD AGE CHADWICK RABLE OPTIMAL HIGH HIGH VERY HIGH 0-19 Y 0 - 109 --- 110-129 >/= 130 ---- 20-24 Y 0 - 119 --- 120-159 >/= 160 ---- >24 Y 0 - 99 100-129 130-159 160-189 >/=190. Cholesterol.total/Mari sterol in HDL [Mass ratio] 4.4 {ratio} [facility] Comment on above: Result Comment: REF VALUES DESIRABLE < 3.4 HIGH RISK > 5.0 Performed By: #### L IPID #### [facility] [address] [place] [id number] REF VALUESDESIRABLE < 3.4HIGH RISK > 5.0 Triglyceride [Mass/Vol] 85 mg/dL 0 - 149 [facility] Comment on above: Result Comment: . AGE DESIRABLE BORDERLINE HIGH HIGH VERY HIGH 0 D-90 D 19 - 174 ---- ---- ---- 91 D- 9 Y 0 - 74 75 - 99 >/= 100 ---- 10-19 Y 0 - 89 90 - 129 >/= 130 ---- 20-24 Y 0 - 114 115 - 149 >/= 150 ---- >24 Y 0 - 149 150 - 199 200- 499 >/= 500 . Venipuncture immediately after or during the administration of Metamizole may lead to falsely low results. Testing should be performed immediately prior to Metamizole dosing. Performed By: #### L IPID #### [facility] [address] [place] [address] . AGE DESIRABLE BORD CATHLEEN HIGH HIGH VERY HIGH 0 D-90 D 19 - 174 ---- ---- ----91 D- 9 Y 0 - 74 75 - 99 >/= 100 ---- 10-19 Y 0 - 89 90 - 129 >/= 130 ---- 20-24 Y 0 - 114 115 - 149 >/= 150 ---- >24 Y 0 - 149 150 - 199 200- 499 >/= 500. Venipuncture immediately after or during the administration of Metamizole may lead to falsely low results. Testing should be performed immediately prior to Metamizole dosing. Lipid Panelon 08-10-2019 Lipid Panel 17 mg/dL 0 - 40 [facility] [employer] Work Phone: Metabolic Panelon 08-10-2019 CO2 [Moles/Vol] 29 mmol/L 21 - 32 [facility] [employer] Work Phone: Otheron 08-10-2019 Albumin BCP dye [Mass/Vol] 4.1 g/dL 3.4 - 5.0 [facility] [employer] Work Phone: ALT With P-5'-P [Catalytic activity/Vol] 19 U/L 7 - 45 [facility] [employer] Work Phone: Comment on above: Patients treated wit h Sulfasalazine may generate falsely decreased results for ALT. AST With P-5'-P [Catalytic activity/Vol] 19 U/L 9 - 39 [facility] [employer] Work Phone: >60 >60 [facility] Work Phone: Comment on above: CALCULATIONS OF CHALINO MATED GFR ARE PERFORMED USING THE MDRD STUDY EQUATION FOR THE IDMS-TRACEABLE CREATININE METHODS. CLIN CHEM 2007;53:766-72 TSHon 08-10-2019 TSH Qn 0.99 m[IU]/L Normal 0.44 - 3.98 [facility] Comment on above: Result Comment: TSH testing is performed using different testing methodology at [facility] than at other [facility]. Direct result comparisons should only be made within the same method. . Patients receiving more than 5 mg/day of biotin may have interference in test results. A sample should be taken no sooner than eight hours after previous dose. Contact [phone] for additional information. Performed By: #### T SH2 #### [facility] [address] [place] [address] TSH - Thyroid Stimulating Ho rmone, Serumon 08-10-2019 TSH Qn 0.99 {mIU/L} See Below [facility] Work Phone: Comment on above: Reference Range: 0.4 4 - 3.98 TSH testing is performed using different testing methodology at [facility] than at other [facility]. Direct result comparisons should only be made within the same method.. Patients receiving more than 5 mg/day of biotin may have interference in test results. A sample should be taken no sooner than eight hours after previous dose. Contact [phone] for additional information. UA MICROSCOPICon 08-10-2019 HYALINE CAST OCC Abnormal [facility] Comment on above: Performed By: #### U AMIC #### [facility] [address] [place] [address] RBC 2 /HPF Normal 0-5 [facility] Comment on above: Performed By: #### U AMIC #### [facility] [address] [place] [address] SQUAMOUS EPITH. CELLS 1 /HPF Normal [facility] Comment on above: Performed By: #### U AMIC #### [facility] [address] [place] [address] WBC 1 /HPF Normal 0-5 [facility] Comment on above: Performed By: #### U AMIC #### [facility] [address] [place] [address] URINALYSISon 08-10-2019 Appearance (U) HAZY Normal CLEAR [facility] Comment on above: Performed By: #### U A #### [facility] [address] [place] [address] Bilirubin (U) [Mass/Vol] Negative Normal NEGATIVE [facility] Comment on above: Performed By: #### U A #### [facility] [address] [place] [address] BLOOD Negative Normal NEGATIVE [facility] Comment on above: Performed By: #### U A #### [facility] [address] [place] [address] Color (U) YELLOW Normal STRAW,YELLOW [facility] Comment on above: Performed By: #### U A #### [facility] [address] [place] [address] Glucose [Mass/Vol] Negative Normal NEGATIVE [facility] Comment on above: Performed By: #### U A #### [facility] [address] [place] [address] Ketones Ql (U) Negative Normal NEGATIVE [facility] Comment on above: Performed By: #### U A #### [facility] [address] [place] [address] Leukocyte esterase Test strip Ql (U) SMALL (1+) Abnormal NEGATIVE [facility] Comment on above: Performed By: #### U A #### [facility] [address] [place] [address] Nitrite Ql (U) Negative Normal NEGATIVE [facility] Comment on above: Performed By: #### U A #### [facility] [address] [place] [address] pH (Bld) 8.0 Normal 5.0 - 8.0 [facility] Comment on above: Performed By: #### U A #### [facility] [address] [place] [address] Protein (U) [Mass/Vol] Negative Normal NEGATIVE [facility] Comment on above: Performed By: #### U A #### [facility] [address] [place] [address] Specific gravity (U) [Rel density] 1.009 Normal 1.005 - 1.035 [facility] Comment on above: Performed By: #### U A #### [facility] [address] [place] [address] Urobilinogen Qn (U) <2.0 Normal 0.0 - 1.9 [facility] Comment on above: Performed By: #### U A #### [facility] [address] [place] [address] Urinalysison 08-10-2019 Appearance (U) HAZY CLEAR [facility] Work Phone: Color (U) YELLOW See Below [facility] Work Phone: Comment on above: Reference Range: STR AW,YELLOW Glucose Ql (U) Negative NEGATIVE [facility] Work Phone: Ketones Ql (U) Negative NEGATIVE [facility] Work Phone: Leukocyte esterase Test strip Ql (U) SMALL (1+) Abnormal NEGATIVE [facility] Work [facility]: pH (U) 8.0 [pH] 5.0 - 8.0 [facility] Work Phone: Protein (U) [Mass/Vol] Negative NEGATIVE [facility] Work Phone: RBC (U) [#/Vol] Negative NEGATIVE [facility] Work Phone: Specific gravity (U) [Rel density] 1.009 See Below [facility] Work Phone: Comment on above: Reference Range: 1.0 05 - 1.035 Urinalysis Negative NEGATIVE [facility] Work Phone: Urinalysis <2.0 0.0 - 1.9 [facility] [address] [facility] awn Work Phone: Urinalysis, Microscopicon Urinalysis, Microscopic 1 {/HPF} M [facility] Work Phone: Urinalysis, Microscopic 2 {/HPF} 0-5 [facility] Work Phone: Urinalysis, Microscopic OCC Abnormal [facility] Work Phone: VITAMIN D, 25-HYDROXYon 07-30 VITAMIN D, 25-HYDROXY 89 ng/mL Abnormal [facility] Comment on above: Result Comment: . DEFICIENCY: < 20 NG/ML INSUFFICIENCY: 20-29 NG/ML OPTIMUM LEVEL: 30-80 NG/ML POSSIBLE TOXICITY: > 80 NG/ML THIS ASSAY ACCURATELY QUANTIFIES THE SUM OF VITAMIN D3, 25-HYDROXY AND VIT D2,25-HYDROXY. Performed By: #### V TDOH #### [facility] [address] [place] [address] Vitamin D 25-Hydroxyon 08-10 Calcidiol [Mass/Vol] 89 ng/mL Abnormal [facility] Work Phone: Comment on above: .DEFICIENCY: < 20 NG /MLINSUFFICIENCY: 20-29 NG/MLOPTIMUM LEVEL: 30-80 NG/MLPOSSIBLE TOXICITY: > 80 NG/MLTHIS ASSAY ACCURATELY QUANTIFIES THE SUM OFVITAMIN D3, 25-HYDROXY AND VIT D2,25-HYDROXY. Vital Signs Date Time Vital Sign Value Performing Clinician Facility 05-26-2025 09:38-0400 Body temperature 97.5 [degF] Lori Dale [employer] Work Phone: [facility] 05-26-2025 09:38-0400 Diastolic blood pressure 57 mm[Hg] Lori Dale [employer] Work Phone: [facility] 05-26-2025 09:38-0400 Heart rate 83 /min Lori Dale [employer] Work Phone: [facility] 05-26-2025 09:38-0400 Respiratory rate 16 /min Lori Dale [employer] Work Phone: [facility] 05-26-2025 09:38-0400 SaO2% (BldA) [Mass fraction] 94 % Lori Dale [employer] Work Phone: [facility] 05-26-2025 09:38-0400 Systolic blood pressure 108 mm[Hg] Lorivern Dale [employer] Work Phone: [facility] 05-26-2025 07:36-0400 Inhaled oxygen flow rate 2 L/min Lori Bonillako [employer] Work Phone: [facility] 05-23-2025 10:39-0400 Body height 152.4 cm Lori Dale [employer] Work Phone: [facility] 05-23-2025 10:39-0400 Body weight 76.02 kg Lori Dale [employer] Work Phone: [facility] 05-22-2025 15:00-0400 Body mass index (BMI) [Ratio] 32.9 kg/m2 Lori Dale [employer] Work Phone: [facility] 05-14-2025 10:40-0400 Diastolic blood pressure 52 mm[Hg] Lori Jameel [employer] Work Phone: [facility] 05-14-2025 10:40-0400 Heart rate 86 /min Lori Jameel [employer] Work Phone: [facility] 05-14-2025 10:40-0400 Respiratory rate 16 /min Lori Jameel [employer] Work Phone: [facility] 05-14-2025 10:40-0400 Systolic blood pressure 113 mm[Hg] Lori Dale [employer] Work Phone: [facility] 05-14-2025 08:29-0400 Body temperature 97.8 [degF] Lori Dale [employer] Work Phone: [facility] 05-14-2025 08:29-0400 SaO2% (BldA) [Mass fraction] 98 % Lori Dale [employer] Work Phone: [facility] 05-14-2025 08:15-0400 Inhaled oxygen flow rate 2 L/min Lori Dale [employer] Work Phone: [facility] 05-10-2025 18:20-0400 Body height 152.4 cm Lori Dale [employer] Work Phone: [facility] 05-10-2025 18:20-0400 Body mass index (BMI) [Ratio] 32.9 kg/m2 Lori Dale [employer] Work Phone: [facility] 05-10-2025 18:20-0400 Body weight 76.5 kg Lori Dale [employer] Work Phone: [facility] 04-02-2025 08:06-0400 Body height 152.4 cm Lori Dale [employer] Work Phone: [facility] 04-02-2025 08:06-0400 Body mass index (BMI) [Ratio] 32 kg/m2 Lori Dale [employer] Work Phone: [facility] 04-02-2025 08:06-0400 Body temperature 97.4 [degF] Lori Dale [employer] Work Phone: [facility] 04-02-2025 08:06-0400 Body weight 74.38 kg Lori Dale [employer] Work Phone: [facility] 04-02-2025 08:06-0400 Diastolic blood pressure 77 mm[Hg] Lori Dale [employer] Work Phone: [facility] 04-02-2025 08:06-0400 Heart rate 82 /min Lori Dale [employer] Work Phone: [facility] 04-02-2025 08:06-0400 Inhaled oxygen flow rate 2 L/min Lori Bonillako [employer] Work Phone: [facility] 04-02-2025 08:06-0400 Respiratory rate 16 /min Lori Dale [employer] Work Phone: [facility] 04-02-2025 08:06-0400 SaO2% (BldA) [Mass fraction] 98 % Lori Jameel [employer] Work Phone: [facility] 04-02-2025 08:06-0400 Systolic blood pressure 115 mm[Hg] Lori Jameel [employer] Work Phone: [facility] 02-12-2025 07:41-0400 Body mass index (BMI) [Ratio] 30.4 kg/m2 Lori Dale [employer] Work Phone: [facility] 02-12-2025 07:41-0400 Body temperature 97.5 [degF] Lori Dale [employer] Work Phone: [facility] 02-12-2025 07:41-0400 Body weight 70.76 kg Lori Dale [employer] Work Phone: [facility] 02-12-2025 07:41-0400 Diastolic blood pressure 50 mm[Hg] Lori Jameel [employer] Work Phone: [facility] 02-12-2025 07:41-0400 Heart rate 88 /min Lori Jameel [employer] Work Phone: [facility] 02-12-2025 07:41-0400 Respiratory rate 18 /min Lori Jameel [employer] Work Phone: [facility] 02-12-2025 07:41-0400 SaO2% (BldA) [Mass fraction] 96 % Lori Bonillako [employer] Work Phone: [facility] 02-12-2025 07:41-0400 Systolic blood pressure 104 mm[Hg] Lori Jameel [employer] Work Phone: [facility] 02-10-2025 08:42-0400 SaO2% (BldA) [Mass fraction] 96 % Lori Jameel [employer] Work Phone: [facility] 02-10-2025 08:12-0400 Body temperature 97.9 [degF] Lori Jameel [employer] Work Phone: [facility] 02-10-2025 08:12-0400 Diastolic blood pressure 49 mm[Hg] Lori Jameel [employer] Work Phone: [facility] 02-10-2025 08:12-0400 Heart rate 90 /min Lori Jameel [employer] Work Phone: [facility] 02-10-2025 08:12-0400 Respiratory rate 16 /min Lori Jameel [employer] Work Phone: [facility] 02-10-2025 08:12-0400 Systolic blood pressure 109 mm[Hg] Lori Dale [employer] Work Phone: [facility] 02-09-2025 11:02-0400 Inhaled oxygen flow rate 2 L/min Lori Dale [employer] Work Phone: [facility] 02-09-2025 08:00-0400 Inhaled oxygen concentration 21 % Lori Dale [employer] Work Phone: [facility] 02-07-2025 09:51-0400 Body height 152.4 cm Lori Dale [employer] Work Phone: [facility] 02-07-2025 09:51-0400 Body weight 70.78 kg Lori Dale [employer] Work Phone: [facility] 02-06-2025 09:47-0400 Body mass index (BMI) [Ratio] 30.4 kg/m2 Lori Dale [employer] Work Phone: [facility] 01-26-2025 12:28-0500 Body temperature 98 [degF] Lori Bonillako [employer] Work Phone: [facility] 01-26-2025 12:28-0500 Diastolic blood pressure 50 mm[Hg] Lori Jameel [employer] Work Phone: [facility] 01-26-2025 12:28-0500 Heart rate 94 /min Lori Bonillako [employer] Work Phone: [facility] 01-26-2025 12:28-0500 Respiratory rate 21 /min Lori Bonillako [employer] Work Phone: [facility] 01-26-2025 12:28-0500 SaO2% (BldA) [Mass fraction] 90 % Lori Bonillako [employer] Work Phone: [facility] 01-26-2025 12:28-0500 Systolic blood pressure 104 mm[Hg] Lori Jameel [employer] Work Phone: [facility] 01-26-2025 12:00-0500 Inhaled oxygen flow rate 2 L/min Lori Bonillako [employer] Work Phone: [facility] 01-26-2025 02:28-0500 Body mass index (BMI) [Ratio] 32.7 kg/m2 Lori Jameel [employer] Work Phone: [facility] 01-26-2025 02:28-0500 Body weight 75.6 kg Lori Jameel [employer] Work Phone: [facility] 10-18-2024 08:50-0500 Body height 152.4 cm Lori Dale [employer] Work Phone: [facility] 10-18-2024 08:50-0500 Body mass index (BMI) [Ratio] 31.05 kg/m2 Lori Dale METAL MACHINIST-[employer]ANCE CONSULTANT Work Phone: [facility] 10-18-2024 08:50-0500 Body temperature 97.59 [degF] Lori Dale METAL MACHINIST-FINANCE CONSULTANT Work Phone: [facility] 10-18-2024 08:50-0500 Body weight 72.12 kg Lori Dale METAL MACHINIST-FINANCE CONSULTANT Work Phone: [facility] 10-18-2024 08:50-0500 Diastolic blood pressure 57 mm[Hg] Lori Dale METAL MACHINIST-FINANCE CONSULTANT Work Phone: [facility] 10-18-2024 08:50-0500 Heart rate 86 /min Lori Dale METAL MACHINIST-FINANCE CONSULTANT Work Phone: [facility] 10-18-2024 08:50-0500 SaO2% (BldA) [Mass fraction] 95 % Lori Dale METAL MACHINIST-FINANCE CONSULTANT Work Phone: [facility] 10-18-2024 08:50-0500 Systolic blood pressure 105 mm[Hg] Lori Dale METAL MACHINIST-FINANCE CONSULTANT Work Phone: [facility] 10-16-2024 08:44-0500 Body temperature 97.59 [degF] Lori Dale METAL MACHINIST-FINANCE CONSULTANT Work Phone: [facility] 10-16-2024 08:44-0500 Body weight 59.88 kg Lori Dale METAL MACHINIST-FINANCE CONSULTANT Work Phone: [facility] 10-16-2024 08:44-0500 Diastolic blood pressure 78 mm[Hg] Lori Dale METAL MACHINIST-FINANCE CONSULTANT Work Phone: [facility] 10-16-2024 08:44-0500 Heart rate 88 /min Lori Dale METAL MACHINIST-FINANCE CONSULTANT Work Phone: [facility] 10-16-2024 08:44-0500 SaO2% (BldA) [Mass fraction] 94 % Lori Dale METAL MACHINIST-FINANCE CONSULTANT Work Phone: [facility] 10-16-2024 08:44-0500 Systolic blood pressure 118 mm[Hg] Lori Dale METAL MACHINIST-FINANCE CONSULTANT Work Phone: [facility] 08-09-2019 11:35-0400 BMI (Body Mass Index) 33.2 kg/m2 [facility] Work Phone: 08-09-2019 11:35-0400 Body Temperature 98.1 [degF] [facility] Work Phone: 08-09-2019 11:35-0400 Body weight 77.11 kg Matthew [facility] Work Phone: 08-09-2019 11:35-0400 BP Diastolic 74 mm[Hg] Matthew [facility] Work Phone: 08-09-2019 11:35-0400 BP Systolic 116 mm[Hg] Matthew [facility] Work Phone: 08-09-2019 11:35-0400 BSA (Body Surface Area) 1.74 m2 [facility] Work Phone: 08-09-2019 11:35-0400 Height 152.4 cm [facility] Work Phone: 08-09-2019 11:35-0400 Pulse (Heart Rate) 68 /min [facility] Work Phone: Encounters Encounter Date Encounter Type Care Provider Facility Start: 07-21-2025 ambulatory [facility] Facility:[facility] Start: 07-10-2025 ambulatory [facility] Facility:[facility] Start: 06-27-2025 ambulatory KASEY Tanner acility:[facility] Start: 05-19-2025 Encounter for other preprocedural examination [facility] Start: 05-14-2025 End: 05-26-2025 Dr. Scott Mcdowell MD -Transitional Care Unit Start: 05-14-2025 End: 05-26-2025 Evaluation and management of inpatient Lori Jameel [employer] Work Phone: -Transitional Care Unit Start: 05-14-2025 Non-patient / Non-visit Dr. Lazaro Harden [facility] Work Phone: Start: 05-14-[address] dong [facility] Work Phone: Start: 05-13-2025 Non-patient / Non-visit Dr. Lazaro Harden [facility] Work Phone: Start: 05-13-[address] dong [facility] Work Phone: Start: 05-12-2025 Non-patient / Non-[facility] Work Phone: Start: 05-12-[address] dong [facility] Work Phone: Start: 05-11-2025 Non-patient / Non-visit Dr. Lazaro Harden [facility] Work Phone: Start: 05-11-[address] dong [facility] In[facility] Physicians Work Phone: Start: 05-10-2025 End: 05-14-2025 Evaluation and management of inpatient Dr. Bria Gan MD -Medical Surgical 3 Work Phone: Start: 05-10-2025 End: 05-14-2025 Dr. Bria Gan MD -Medical Surgical 3 Work Phone: Start: 05-10-2025 End: 05-14-2025 Evaluation and management of inpatient Lori Jameel BRONZE PLATER-C Work Phone: [facility] Work Phone: Start: 05-10-2025 End: 05-14-2025 Dr. Bria Gan MD -Medical Surgical 3 Work Phone: Start: 05-10-2025 ambulatory Bria Gan [place] [facility] [place] Start: 05-03-2025 ambulatory [facility] Facility:[facility] Start: 05-01-2025 Encounter for other preprocedural examination Bria Elvia [facility] Start: 04-27-2025 End: 04-27-2025 ambulatory Lori Jameel BRONZE PLATER-C Work Phone: [facility] Work Phone: Start: 04-27-2025 End: 04-27-[address] Bria Gan MD -Laboratory Work Phone: Start: 04-27-2025 End: 04-27-2025 Dr. Bria Gan MD -Laboratory Work Phone: Start: 04-27-2025 End: 04-27-2025 ambulatory [facility] Facility:[facility] Start: 04-09-2025 ambulatory [facility] Facility:[facility] Start: 04-02-2025 End: 04-02-2025 Patient encounter procedure Cindy Guerrier BRONZE PLATER-C -[facility] Work Phone: Start: 04-02-2025 End: 04-02-2025 Cindy Guerrier BRONZE PLATER-C -[facility] Work Phone: Start: 04-02-2025 End: 04-02-2025 ambulatory Lori Jameel BRONZE PLATER-C Work Phone: [facility] Work Phone: Start: 04-02-2025 End: 04-02-2025 ambulatory Scott Chi Jeremias Facility:[facility] Start: 02-27-2025 ambulatory Scott [facility] Facility:[facility] Start: 02-27-2025 Non-patient / Non-visit Dr. Raymundo ramirez MD -[facility] Start: 02-27-2025 Dr. Raymundo Petty MD -[facility] Start: 02-27-2025 End: 02-27-2025 ambulatory Lori Dale BRONZE PLATER-C Work Phone: [facility] Work Phone: Start: 02-27-2025 End: 02-27-2025 Patient encounter procedure Cindy Guerrier NP-C -Pulmonary Services/Neurology Work Phone: Start: 02-27-2025 End: 02-27-2025 Cindy Guerrier NP-C -Pulmonary Services/Neurology Work Phone: Start: 02-27-2025 End: 02-27-2025 ambulatory Scott Mcdowell Facility:[facility] Start: 02-12-2025 End: 02-12-2025 ambulatory Lori Dale BRONZE PLATER-C Work Phone: [facility] Work Phone: Start: 02-12-2025 End: 02-12-[address] Scott Mcdowell MD -Laboratory, Phy Office 3rd Flr Start: 02-12-2025 End: 02-12-2025 Dr. Scott Mcdowell MD -Laboratory Phy Office 3rd Flr Start: 02-12-2025 End: 02-12-2025 Patient encounter procedure Cindy Guerrier NP-C -[facility] Work Phone: Start: 02-12-2025 End: 02-12-2025 Cindy Guerrier NP-C -[facility] Work Phone: Start: 02-12-2025 End: 02-12-2025 ambulatory Lori Dale Facility:[facility] Start: 02-12-2025 End: 02-12-2025 ambulatory Scott Mcdowell Facility:[facility] Start: 02-08-2025 End: 02-08-2025 ambulatory Lori Dale BRONZE PLATER-C Work Phone: [facility] Work Phone: Start: 02-08-2025 End: 02-08-[address] Scott Mcdowell MD -Cat Scan, [facility] Work Phone: Start: 02-08-2025 End: 02-08-2025 Dr. Scott Mcdowell MD -Cat Scan [facility] Work Phone: Start: 02-07-2025 ambulatory Scott Cm Segoviaok Facility:[facility] Start: 02-07-2025 Non-patient / Non-visit Dr. Raymundo ramirez MD -[facility] Start: 02-07-2025 Dr. Raymundo Petty MD -[facility] Start: 02-07-2025 End: 02-08-2025 ambulatory Lori Dale BRONZE PLATER-C Work Phone: [facility] Work Phone: Start: 02-07-2025 End: 02-07-[address] Scott Mcdowell MD -Cardiovascular Services Work Phone: Start: 02-07-2025 End: 02-07-2025 Dr. Scott Mcdowell MD -Cardiovascular Services Work Phone: Start: 02-07-2025 End: 02-07-2025 ambulatory Lori Dale Facility:[facility] Start: 01-29-2025 ambulatory Bria Elvia Facility: [facility] Start: 01-26-2025 End: 02-10-2025 Dr. Scott Mcdowell MD -Transitional Care Unit Start: 01-26-2025 End: 02-10-2025 Evaluation and management of inpatient Dr. Scott Mcdowell MD -Transitional Care Unit Start: 01-26-2025 Non-patient / Non-visit Dr. Lori Matthews DO -[place] [facility] Work Phone: Start: 01-26-2025 Dr. Lori Platt Inpatient Physicians Work Phone: Start: 01-25-2025 Non-patient / Non-visit Dr. Lori Matthews DO -[place] [facility] Work Phone: Start: 01-25-2025 Dr. Lori Matthews DO -[place] [facility] Work Phone: Start: 01-25-2025 Non-patient / Non-visit Dr. Cuba sethi DO -[facility] Start: 01-25-2025 Dr. Cuba Allred DO -[facility] Start: 01-24-2025 Non-patient / Non-visit Dr. Raymundo ramirez MD -[facility] Start: 01-24-2025 Dr. Raymundo Petty MD -[facility] Start: 01-24-2025 ambulatory [place] [facility] cility:[facility] Start: 01-24-2025 Non-patient / Non-visit Dr. Cuba sethi DO -[facility] Start: 01-24-2025 Dr. Cuba Allred DO [facility] Start: 01-23-2025 Non-patient / Non-visit Dr. Raymundo nick DO [facility] Inpatient Physicians Work Phone: Start: 01-23-2025 ambulatory Raymundo Bhardwaj Facility:[facility] Start: 01-23-2025 End: 01-26-2025 Evaluation and management of inpatient Dr. Lori Matthews DO -Intensive Care Unit Work Phone: Start: 01-23-2025 End: 01-26-2025 Dr. Lori Mathtews DO -Intensive Care Unit Work Phone: Start: 01-17-2025 End: 01-17-[address] BRIA GAN MD Facility:[facility] Start: 01-17-2025 End: 01-17-[address] BRIA GAN MD [facility] Start: 11-20-2024 End: 02-21-2025 ambulatory VICK CROWLEY PA-C Facility:[facility] Start: 11-20-2024 End: 01-19-2025 Physical therapy management VICK CROWLEY PA-C [facility] Start: 10-23-2024 End: 10-23-[address] BRIA GAN MD Facility:[facility] Start: 10-23-2024 End: 10-23-[address] BRIA GAN MD [facility] Start: 10-18-2024 End: 10-18-2024 Office outpatient visit 15 minutes Lori Dale METAL MACHINIST-FINANCE CONSULTANT Work Phone: [facility] Comment on above: Preop examination (P rimary Dx); Primary osteoarthritis of left knee Start: 10-18-2024 End: 10-18-2024 Preprocedural examination done Lori Dale METAL MACHINIST-FINANCE CONSULTANT Work Phone: [facility] Work Phone: Start: 10-18-2024 End: 10-18-2024 Encounter for other preprocedural examination [facility] Ambulatory Start: 10-18-2024 End: 10-18-[address] [facility] Ambulatory Start: 10-16-2024 End: 10-16-2024 Patient encounter procedure Lori Dale METAL MACHINIST-FINANCE CONSULTANT Work Phone: [facility] Comment on above: Medicare annual well ness visit, subsequent (Primary Dx); Screening for cardiovascular condition; Colon cancer screening; Annual physical exam Start: 10-16-2024 End: 10-16-[address] [facility] Ambulatory Start: 10-16-2024 End: 10-16-2024 Encounter for general adult medical examination without abnormal findings [facility] Ambulatory Procedures Date Procedure Procedure Detail Performing Clinician Start: 05-22-2025 Blood count smear rscp w/mnl difrntl wbc count Lori Dale BRONZE PLATER-C Work Phone: Start: 05-22-2025 Estimated creatinine clearance Lori Dale BRONZE PLATER-C Work Phone: Start: 05-22-2025 Mean corpuscular hem oglobin concentration determination Lori Dale BRONZE PLATER-C Work Phone: Start: 05-22-2025 Nucleated red blood cell count procedure Lori Dale BRONZE PLATER-C Work Phone: Start: 05-22-2025 Platelet mean volume determination Lori Dale BRONZE PLATER-C Work Phone: Start: 05-20-2025 Plain X-ray abdomen Ayala Dale BRONZE PLATER-C Work Phone: Start: 05-14-2025 Mean corpuscular hem oglobin concentration determination Lori Dale BRONZE PLATER-C Work Phone: Start: 05-14-2025 Platelet mean volume determination Lori Dale BRONZE PLATER-C Work Phone: Start: 05-11-2025 Estimated creatinine clearance Lori Dale BRONZE PLATER-C Work Phone: Start: 05-10-2025 X-ray of knee, one o r two views Lori Dale BRONZE PLATER-C Work Phone: Start: 05-10-2025 Anaerobic microbial culture Lori Dale BRONZE PLATER-C Work Phone: Start: 05-10-2025 Gram stain microscopy K majo Dale BRONZE PLATER-C Work Phone: Start: 05-10-2025 End: 05-10-2025 Microbial culture, routine Lori Dale BRONZE PLATER-C Work Phone: Start: 05-10-2025 Revision of left tot al knee arthroplasty Lori Dale BRONZE PLATER-C Work Phone: Start: 04-27-2025 Methicillin resistan t Staphylococcus aureus screening test Lori Dale BRONZE PLATER-C Work Phone: Start: 04-16-2025 Blood count smear mc rscp w/mnl difrntl wbc count Lori Dale BRONZE PLATER-C Work Phone: Start: 04-16-2025 Calculation of inter national normalized ratio Lori Dale BRONZE PLATER-C Work Phone: Start: 04-16-2025 Nucleated red blood cell count procedure Lori Dale BRONZE PLATER-C Work Phone: Start: 04-02-2025 End: 04-02-2025 Plain x-ray of hand Lori Dale BRONZE PLATER-C Work Phone: Start: 04-02-2025 Plain x-ray of wrist Lissett Dale BRONZE PLATER-C Work Phone: Start: 04-02-2025 QUITA measurement Lori Dale BRONZE PLATER-C Work Phone: Comment on above: Performed at: [place] [id number] Director: Eros Rosales PhD, Phone: [phone] Start: 04-02-2025 Antibody to lupus La protein measurement Lori Dale BRONZE PLATER-C Work Phone: Comment on above: Previous reported re sult: TNP AIEdited by: INFRANDALL on 04/03/25:1108 AMENDED REPORT 04/03/25 1108 Anti-SS-B previously reported as: Test not performed Start: 04-02-2025 Antibody to SS-A measurement Lori Dale BRONZE PLATER-C Work Phone: Comment on above: Previous reported re sult: TNP AIEdited by: INFCE on 04/03/25:1108 AMENDED REPORT 04/03/25 1108 Anti-SS-A previously reported as: Test not performed Start: 04-02-2025 Blood count smear mc rscp w/mnl difrntl wbc count Lori Dale BRONZE PLATER-C Work Phone: Start: 04-02-2025 C>3< complement assay K athaga Dale BRONZE PLATER-C Work Phone: Start: 04-02-2025 Mean corpuscular hem oglobin concentration determination Lori Dale BRONZE PLATER-C Work Phone: Start: 04-02-2025 Nucleated red blood cell count procedure Lori Dale BRONZE PLATER-C Work Phone: Start: 04-02-2025 Platelet mean volume determination Lori Dale BRONZE PLATER-C Work Phone: Start: 04-02-2025 Procedure Loir adkins BRONZE PLATER-C Work Phone: Comment on above: Test Ordered: [id number] Anti-Centromere Ab by IFA(RDL)Anti- Centromere Ab by IFA(RDL) <1:40 ESECF Reference Range: <1:40Performed at: [facility] [place] [id number] Director: Latrell Damon MD, Phone: [phone] at: [facility] [id number] Director: Eros Rosales PhD, Phone: [phone] Test Ordered: [id number] Anti-RNA Polymerase III (RDL)Anti-RNA Polymerase III (RDL) <20 Units ESEC Reference Range: <20 Negative: <20 Weak Positive: 20 - 39 Moderate Positive: 40 - 80 Strong Positive: >80Performed at: [facility] [id number] [place] [address] [id number] Director: Latrell Damon MD, Phone: [phone] at: [facility] [id number] Director: Eros Rosales PhD, Phone: [phone] Start: 04-02-2025 Serum IgM anticardio lipin measurement Lori Dale BRONZE PLATER-C Work Phone: Comment on above: Negative: <13 Indete rminate: 13 - 20 Low-Med Positive: >20 - 80 High Positive: >80 Start: 04-02-2025 Urine microscopy: red cells Lori CAREY Work Phone: Start: 04-02-2025 Urnls dip stick/tabl et reagent auto microscopy Lori CAREY Work Phone: Start: 02-12-2025 Blood count smear rs w/mnl difrntl wbc count Lori CAREY Work Phone: Start: 02-12-2025 Hepatitis C antibody measurement Lori CAREY Work Phone: Comment on above: Reactive: Presumptiv e evidence of antibodies to HCV. Follow CDC recommendations for supplemental testing.Non-Reactive: Antibodies to HCV were not detected; does not exclude the possibility of exposure to HCVReactive Results are presumptive evidence of antibodies to HCV. Follow CDC recommendations for supplemental testing.Order confirmation testing: HCV Quant by PCR testing - HCVPCR #[id number] Non Reactive: < 0.8 Equivocal: >/= 0.8 to < 1.0 Reactive: >/= 1.0The CDC requires that a reactive/equivocal HCV antibody result be sent out for confirmation. HCV Quant by PCR testing. Start: 02-12-2025 Mean corpuscular hem oglobin concentration determination Lori CAREY Work Phone: Start: 02-12-2025 Nucleated red blood cell count procedure Lori CAREY Work Phone: Start: 02-12-2025 Platelet mean volume determination Lori CAREY Work Phone: Start: 02-12-2025 Vitamin D, 25-hydrox y measurement Lori CAREY Work Phone: Comment on above: Vitamin D StatusDefi ciency: <20 ng/mL (50nmol/L)Insufficiency: 20-30 ng/mL (50-75 nmol/L)Sufficiency: 30-100 ng/mL (75-250 nmol/L)Toxicity: >100 ng/mL (>250 nmol/L) Start: 02-09-2025 Blood count smear rscp w/mnl difrntl wbc count Lori Dale BRONZE PLATER-C Work Phone: Start: 02-09-2025 Estimated creatinine clearance Lori Dale BRONZE PLATER-C Work Phone: Start: 02-09-2025 Mean corpuscular hem oglobin concentration determination Lori Dale BRONZE PLATER-C Work Phone: Start: 02-09-2025 Nucleated red blood cell count procedure Lori Dale BRONZE PLATER-C Work Phone: Start: 02-09-2025 Platelet mean volume determination Lori Dale BRONZE PLATER-C Work Phone: Start: 02-08-2025 CT angiography of ch est with contrast Lori Dale BRONZE PLATER-C Work Phone: Start: 01-26-2025 Blood count smear mc rscp w/mnl difrntl wbc count Lori Dale BRONZE PLATER-C Work Phone: Start: 01-26-2025 Estimated creatinine clearance Lori Dale BRONZE PLATER-C Work Phone: Start: 01-26-2025 Mean corpuscular hem oglobin concentration determination Lori Dale BRONZE PLATER-C Work Phone: Start: 01-26-2025 Nucleated red blood cell count procedure Lori Dale BRONZE PLATER-C Work Phone: Start: 01-26-2025 Platelet mean volume determination Lori Dale BRONZE PLATER-C Work Phone: Start: 01-25-2025 Serum inorganic phos phate measurement Lori Dale BRONZE PLATER-C Work Phone: Start: 01-24-2025 QUITA measurement Lori Dale BRONZE PLATER-C Work Phone: Comment on above: Performed at: [address] [id number] Director: Eros Rosales PhD, Phone: [phone] Start: 01-24-2025 Antibody measurement Lissett Dale BRONZE PLATER-C Work Phone: Comment on above: The atypical pANCA p attern has been observed in asignificant percentage of patients with ulcerative colitis,primary sclerosing cholangitis and autoimmune hepatitis. Start: 01-24-2025 Antibody to centrome re measurement Lori Dale BRONZE PLATER-C Work Phone: Comment on above: Test not performed Start: 01-24-2025 Antibody to extracta ble nuclear antigen measurement Lori Dale BRONZE PLATER-C Work Phone: Comment on above: Test not performed Start: 01-24-2025 Antibody to ROSE-1 measurement Lori Dale BRONZE PLATER-C Work Phone: Comment on above: Test not performed Start: 01-24-2025 Antibody to lupus La protein measurement Lori Dale BRONZE PLATER-C Work Phone: Comment on above: Test not performed Start: 01-24-2025 Antibody to SS-A measurement Lori Dale BRONZE PLATER-C Work Phone: Comment on above: Test not performed Start: 01-24-2025 Autoantibody measurement Lori Dale BRONZE PLATER-C Work Phone: Comment on above: Test not performed Start: 01-24-2025 WHITE SUGAR SYRUP OPERATOR antibody measurement Lori Dale BRONZE PLATER-C Work Phone: Comment on above: Test not performed Start: 01-23-2025 Calculation of inter national normalized ratio Lori Dale BRONZE PLATER-C Work Phone: Start: 01-23-2025 Urine microscopy: red cells Lori Dale BRONZE PLATER-C Work Phone: Start: 01-23-2025 Urnls dip stick/tabl et reagent auto microscopy Lori Dale BRONZE PLATER-C Work Phone: Start: 01-23-2025 CT angiography of ch est with contrast Lori Dale BRONZE PLATER-C Work Phone: Start: 01-23-2025 Assay of lactate Ayalamargie raudel Dale BRONZE PLATER-C Work Phone: Start: 01-23-2025 D-dimer assay, quantitative Lori Dale BRONZE PLATER-C Work Phone: Comment on above: D-Dimer ELEVATED (>0 .49): Additional studies and clinicalassessments are indicated to conclude diagnosis of:Deep Vein Thrombosis (DVT) or Pulmonary Embolism (PE)CRITICAL VALUE CALLED TO [id number]/25/25 1628 Pebbles Trotter.RESULTS READ BACK BY SAME. Start: 01-23-2025 X-ray of chest, PA a nd lateral views Lori Dale BRONZE PLATER-C Work Phone: Start: 01-23-2025 Blood culture Lori wyliejed BRONZE PLATER-C Work Phone: Start: 01-23-2025 SARS-CoV-2, Influenz a & RSV (PCR) Lori Dale BRONZE PLATER-C Work Phone: Start: 01-23-2025 Urine culture Lori callejasdejan BRONZE PLATER-C Work Phone: Start: 01-23-2025 Lori Germán adkins BRONZE PLATER-C Work Phone: Start: 10-18-2024 Lipid 1996 panel - S hailey or Plasma Lorinicanor Bonillako METAL MACHINIST-FINANCE CONSULTANT Work Phone: Start: 08-13-2019 Follow-up visit Start: 08-10-2019 Lipid 1996 panel - S hailey or Plasma Lori Jameel METAL MACHINIST-FINANCE CONSULTANT Work Phone: Appendectomy Matthew Smiley is Ligation of fallopian tube Shakira Covarrubias Plan of Treatment Date Care Activity Detail Author Start: 10-18-2029 Lipid panel Lipid Panel [facility] Start: 2028 RSV High Risk: (Elde rly (60+) or Population) (1 - 1-dose 75+ series) RSV High Risk: (Elderly (60+) or Population) (1 - 1-dose 75+ series) [facility] Start: 10-19-2025 End: 11-21-2025 Patient encounter procedure 10/19/2025 8:40 AM EST Office Visit [facility] [address] [facility] [address] [place] [id number] Lori Dale, METAL MACHINIST-FINANCE CONSULTANT [address] [facility] [place] [address] [facility] Start: 10-17-2025 Yearly Adult Physical Yearly Adult P [facility] Start: 05-26-2025 Patient discharge [facility] Start: 05-25-2025 Development of care plan [facility] Start: 05-23-2025 Referral to service [facility] Start: 05-22-2025 [facility] Start: 05-16-2025 Patient referral to dietitian [facility] Start: 05-15-2025 Development of care plan [facility] Start: 05-15-2025 Developing a treatme nt plan [facility] Start: 05-14-2025 Oxygen therapy [facility] Start: 05-14-2025 Recommendation to continue with treatment [facility] Start: 05-14-2025 Following clinical pathway protocol [facility] Start: 05-14-2025 Wound care [facility] Start: 05-14-2025 Admission procedure [facility] Start: 05-14-2025 Introduction of urin katerin catheter [facility] Start: 05-14-2025 Measuring intake and output [facility] Start: 05-14-2025 Patient referral to dietitian [facility] Start: 05-14-2025 Referral to occupati onal therapist [facility] Start: 05-14-2025 Referral to service [facility] Start: 05-14-2025 Vital signs measurements [facility] Start: 05-14-2025 End: 05-14-2025 [facility] Start: 05-14-20[address] [facility] Start: 05-14-2025 Patient discharge [facility] Start: 05-11-2025 Consultation [facility] Start: 05-11-2025 Oxygen therapy [facility] Start: 05-10-2025 Application of intermittent pneumatic compression device [facility] Start: 05-10-2025 Following clinical pathway protocol [facility] Start: 05-10-2025 Provision of overbed trapeze [facility] Start: 05-10-2025 Recommendation to continue with treatment [facility] Start: 05-10-2025 Ambulation therapy management [facility] Start: 05-10-[address] [facility] Start: 05-10-2025 Application of elast ic bandage [facility] Start: 05-10-2025 Assessment of risk o f venous thromboembolism [facility] Start: 05-10-2025 Catheterization of vein [facility] Start: 05-10-2025 Exercises [facility] Start: 05-10-2025 Introduction of urin katerin catheter [facility] Start: 05-10-2025 Measuring intake and output [facility] Start: 05-10-2025 Neurovascular assessment [facility] Start: 05-10-2025 Patient education [facility] Start: 05-10-2025 Procedure discontinued [facility] Start: 05-10-2025 Provision of activit y privileges [facility] Start: 05-10-2025 Referral to occupati onal therapist [facility] Start: 05-10-2025 Referral to service [facility] Start: 05-10-2025 Vital signs measurements [facility] Start: 05-10-2025 Wound care [facility] Start: 05-10-2025 End: 05-10-2025 [facility] Start: 05-10-2025 Admission procedure [facility] Start: 05-10-2025 End: 05-10-2025 Source specific culture [facility] Start: 05-10-2025 End: 05-10-2025 Acid fast bacilli culture [facility] Start: 05-10-2025 End: 05-10-2025 Mycology culture [facility] Start: 05-10-2025 Acid Fast Bacilli Culture Acid Fast Bacilli Culture [facility] Start: 05-10-2025 Acid Fast Bacilli Smear Acid Fast Ba cilli Smear [facility] Start: 05-10-2025 Anaerobic microbial culture [facility] Start: 05-10-2025 Fungal Culture Fungal Culture [facility] Start: 05-10-2025 Fungal Smear Fungal Smear [facility] Start: 05-10-2025 [facility] Start: 04-02-2025 Procedure [facility] Start: 02-12-2025 Patient referral [facility] Work Phone: Start: 02-10-2025 Patient discharge [facility] Start: 02-08-2025 [facility] Start: 02-07-2025 Referral to service [facility] Start: 01-31-2025 Application of ice collar, cap or bag [facility] Start: 01-27-2025 Developing a treatme nt plan [facility] Start: 01-26-2025 Admission procedure [facility] Start: 01-26-2025 Introduction of urin katerin catheter [facility] Start: 01-26-2025 Measuring intake and output [facility] Start: 01-26-2025 Patient referral to dietitian [facility] Start: 01-26-2025 Referral to occupati onal therapist [facility] Start: 01-26-2025 Referral to service [facility] Start: 01-26-2025 Vital signs measurements [facility] Start: 01-26-2025 End: 01-26-2025 [facility] Start: 01-26-2025 Following clinical pathway protocol [facility] Start: 01-26-2025 Patient discharge [facility] Start: 01-25-2025 Oxygen therapy [facility] Start: 01-24-2025 Care planning and pr oblem solving actions [facility] Start: 01-23-2025 Following clinical pathway protocol [facility] Start: 01-23-2025 Assessment of risk o f venous thromboembolism [facility] Start: 01-23-2025 Continuous pulse oximetry [facility] Start: 01-23-2025 Elevation of affecte d extremity [facility] Start: 01-23-2025 Insertion of cathete r into peripheral vein [facility] Start: 01-23-2025 Measuring intake and output [facility] Start: 01-23-2025 Providing care accor ding to standard [facility] Start: 01-23-2025 Referral to occupati onal therapist [facility] Start: 01-23-2025 Referral to service [facility] Start: 01-23-2025 Referral to vascular surgeon [facility] Start: 01-23-2025 Self-administration of medication [facility] Start: 01-23-2025 Vital signs measurements [facility] Start: 01-23-2025 [facility] Start: 01-23-2025 Admission procedure [facility] Start: 01-23-2025 [facility] Start: 10-18-2024 End: 10-18-2024 Patient encounter procedure 10/18/2024 8:40 AM EST Office Visit [facility] [address] [facility] [address] [place] [id number] Lori Dale, METAL MACHINIST-FINANCE CONSULTANT [address] [facility] [place] [address] [facility] Start: 10-16-2024 End: 10-16-2025 CBC W Auto Differential panel - Blood CBC and Auto Differential Lab Routine Screening for cardiovascular condition Expected: 10/16/2024 (Approximate), Expires: 10/16/2025 [facility] Work Phone: Comment on above: Expected: 10/16/2024 (Approximate), Expires: 10/16/2025 Start: 10-16-2024 End: 10-16-2025 Cologuard colon cancer screening Cologuard colon cancer screening Lab Routine Colon cancer screening Expected: 10/16/2024 (Approximate), Expires: 10/16/2025 [facility] Work Phone: Comment on above: Expected: 10/16/2024 (Approximate), Expires: 10/16/2025 Start: 10-16-2024 End: 10-16-2025 Comprehensive metabolic 2000 panel - Serum or Plasma Comprehensive metabolic panel Lab Routine Screening for cardiovascular condition Expected: 10/16/2024 (Approximate), Expires: 10/16/2025 [facility] Service Area Work Phone: Comment on above: Expected: 10/16/2024 (Approximate), Expires: 10/16/2025 Start: 10-16-2024 End: 10-16-2025 Lipid 1996 panel - Serum or Plasma Lipid Panel Lab Routine Screening for cardiovascular condition Expected: 10/16/2024 (Approximate), Expires: 10/16/2025 [facility] Work Phone: Comment on above: Expected: 10/16/2024 (Approximate), Expires: 10/16/2025 Start: 10-16-2024 End: 10-16-2025 Tsh With Reflex To Free T4 If Abnormal Tsh With Reflex To Free T4 If Abnormal Lab Routine Screening for cardiovascular condition Expected: 10/16/2024 (Approximate), Expires: 10/16/2025 [facility] Work Phone: Comment on above: Expected: 10/16/2024 (Approximate), Expires: 10/16/2025 Start: 08-10-2024 Lipid panel Lipid Panel [facility] Start: 07-30-2024 COVID-19 Vaccine ( season) COVID-19 Vaccine ( season) [facility] Start: 07-30-2024 Influenza vaccination Influenza Vacc ine (#1) [facility] Start: 2018 Pneumococcal Vaccine : 65+ Years (1 of 1 - PCV) Pneumococcal Vaccine: 65+ Years (1 of 1 - PCV) [facility] Start: 2003 Zoster Vaccines (1 of 2) Zoster Vacc sundar (1 of 2) [facility] Start: 1993 Screening for malign ant neoplasm of breast Mammogram [facility] Start: 1975 DTaP/Tdap/Td Vaccine s (1 - Tdap) DTaP/Tdap/Td Vaccines (1 - Tdap) [facility] Start: 1971 Hepatitis C screening Hepatitis C Sc reening [facility] Start: 1953 Screening for malign ant neoplasm of colon [facility] Start: 1953 Screening for osteoporosis Bone Density Scan [facility] Start: 1955 Yearly Adult Physical Yearly Adult P hysical [facility] CBC W Auto Different ial panel - Blood [facility] Fungus identified in Unspecified specimen by Culture [facility] Fungus identified in Unspecified specimen by Fungus stain [facility] Mycobacterium sp identified in Unspecified specimen by Organism specific culture [facility] Patient referral [facility] Work Phone: [facility] Payers Date Payer Category Payer Self-pay 2025 Medicare [id number] 2023 Managed Care (Private) [facility] [id number] 2023 Private Health Insurance [id number] 1955 Unknown [id number] .1.846473.3.579. 2.124 1953 Unknown [id number] .1.887683.3.579. 2.124 1953 Unknown [id number] 01.14.840.1.684357.3.579. 2.1244 1953 Unknown [id number] 01.14.840.1.058881.3.579. 2.62 1953 Unknown [id number] 2.0.1.321264.3.579. 2.62 1955 Unknown [id number] 2.16.840.1.226725.3.579. 2.627 1955 Unknown [id number] 2.16.840.1.552325.3.579. 2.627 Unknown [id number] 2.16.840.1.236826.3.579. 2.462 Unknown [id number] 2.16.840.1.793530.3.579. 2.462 Unknown [id number] 2.16.840.1.988606.3.579. 2.462 Unknown [id number] 2.16.840.1.186800.3.579. 2.462 Unknown [id number] 2..840.1.286842.3.579. 2.462 Unknown [id number] 2.840.1.500006.3.579. 2.462 Unknown [id number] 2.840.1.191532.3.579. 2.462 Unknown [id number] 2.840.1.283394.3.579. 2.462 Unknown [id number] 2.840.1.602993.3.579. 2.462 Unknown [id number] 2..840.1.981916.3.579. 2.462 Unknown [id number] 2.840.1.763189.3.579. 2.462 Unknown [id number] 2..840.1.198395.3.579. 2.462 Unknown [id number] 2.16.840.1.331358.3.579. 2.462 Unknown [id number] 2.16.840.1.810360.3.579. 2.462 Unknown [id number] 2.16840.1.971966.3.579. 2.462 Unknown [id number] 2.16.840.1.164404.3.579. 2.462 Unknown [id number] 2.16.840.1.581105.3.579. 2.462 Unknown [id number] 2.16.840.1.396742.3.579. 2.462 Unknown [id number] 2.16.840.1.314005.3.579. 2.462 Unknown [id number] 2.16.840.1.387430.3.579. 2.462 Unknown [id number] 2.16.840.1.811453.3.579. 2.462 Unknown [id number] 2.16.840.1.082268.3.579. 2.462 Unknown [id number] 2.16.840.1.519458.3.579. 2.462 Unknown [id number] 2.16.840.1.296262.3.579. 2.462 Unknown [id number] 2.16.840.1.520962.3.579. 2.462 Unknown [id number] 2.16.840.1.779427.3.579. 2.462 Unknown [id number] 2.16.840.1.288320.3.579. 2.462 Unknown [id number] 2.16.840.1.248074.3.579. 2.462 Unknown [id number] 2.16.840.1.624152.3.579. 2.462 Unknown [id number] 2.16.840.1.372075.3.579. 2.462 Unknown [id number] 2.16.840.1.457784.3.579. 2.462 Social History Date Type Detail Facility Assertion Unknown if ever smoked [facility] Work Phone: Start: 10-16-2024 End: 05-14-2025 Tobacco smoking status NHIS Never smoked tobacco [facility] Work Phone: Start: 10-16-2024 Tobacco use and exposure Smokeless tobacco non-user [facility] Work Phone: Start: 10-16-2024 End: 10-18-2024 Alcoholic beverage intake Ex-drinker (finding) [facility] Work Phone: Start: 10-16-2024 Alcohol Comment rare [facility] Work Phone: Start: 1955 [facility] Start: 10-18-2024 Gender identity Not on file [facility] Work Phone: Start: 10-06-2024 End: 10-18-2024 Exposure to SARS-CoV-2 (event) Not sure [facility] Start: 10-18-2024 History of Social function [facility] Work Phone: Start: 02-10-2025 End: 03-03-2025 Sex Female (finding) [facility] Start: 1955 Sex Assigned At Female [facility] NEGATED: Highlighted row [facility] Medical Equipment Procedure Code Equipment Code Equipment Origin al Text Equipment Identifier Dates [id number] FDA Start: 05-10-2025 ([id number]) [id number] [id number] FDA Start: 05-10-2025 ([id number]) [id number] [id number] FDA Start: 05-10-2025 [id number] [id number] FDA Start: 05-10-2025 ([id number]) ()[id number] [id number] FDA Start: 05-10-2025 Goals Date Patient Goal Desired Activity /State Functional Status Date Assessment Result Facility 05-26-2025 Functional status Ambulates;Up a d rai;Chair [facility] Work Phone: 05-14-2025 Functional status Ambulates;Chair [facility] Work Phone: 02-10-2025 Functional status Ambulates;Up ad rai [facility] Work Phone: 01-26-2025 Functional status Bedrest [facility] Work Phone: NEGATED: Highlighted row Functional performance Functional status health issues are not documented Disease [facility] Work Phone: Mental Status Date Assessment Result Facility 05-26-2025 Cognitive function Voice/Name [facility] Work Phone: 05-14-2025 Cognitive function Voice/Name [facility] Work Phone: 02-10-2025 Cognitive function Voice/Name [facility] Work Phone: 02-06-2025 Cognitive function Appropriate;C ooperati ve [facility] Work Phone: 01-26-2025 Cognitive function Voice/Name [facility] Work Phone: NEGATED: Highlighted row Cognitive function [Interpretation] Cognitive status health issues are not documented Disease [facility] Work Phone: Clinical Notes 10-16-2024 to 05-26-2025 Note Date & Type Note Facility 05-26-2025 Hospital Discharg e instructions Additional Instructions Discharge home with 05/26/2025, [facility] PT/OT/SN. [facility] Work Phone: 05-23-2025 Discharge summary Note Date/Time May 23, 2025 9:04pm [facility] Medical Records Department [address] [place] [address] Discharge Summary 05/23/252054 MR#: [id number] Acct: [id number] Name: EDSON COOK Rep #:[id number] : 1955 70 From: Scott Mcdowell MD PCP: Dr. Scott Mcdowell MD Status:ADM I N Location: [facility] Providers Date of Admission: 05/14/25 Primary Care Physician: Dr. 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 Code(s): T84.093A - Other 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, initial encounter Qualifiers: Encounter type: sequela Qualified Code(s): T84.093S - 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 (3) Chronic hypoxic respiratory failure: Status: Chronic Code(s): J96.11 - Chronic respiratory failure with hypoxia (4) Postoperative anemia: Status: Acute Code(s): D64.9 - Anemia, unspecified (5) Pulmonary embolism: Status: Acute Code(s): I26.99 - Other pulmonary embolism without acute cor pulmonale Qualifiers: Pulmonary embolism type: saddle Chronicity: acute Acute cor pulmonale presence: without acute cor pulmonale Qualified Code(s): I26.92 - Saddle embolus of pulmonary artery without acute cor pulmonale (6) Pulmonary fibrosis: Status: Suspected Code(s): J84.10 - Pulmonary fibrosis, unspecified Plan 70 year old female with below past medical history 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 Gan, admitted to TCU with debility, here for rehabilitation, strengthening, prior to discharge home with spouse. * Debility - PT/OT. * Pain - Tylenol 1000mg q8, Oxycodone 5mg to 10mg q4 prn. * Bowel - senna/colace 2 tablets bid, Magnesium citrate 300mL daily prn. * Adult immunization - Administer pneumonia vaccine, covid vaccine, flu vaccine as appropriate * DVT prophylaxis - Eliquis. * Chronic hypoxia - Oxygen 2 liters per nasal cannula prn. * Saddle embolism/right lower dvt/hypercoagulable state - Eliquis 5mg bid. * Iron deficiency anemia - Ferrous sulfate 325mg bid, Vitamin C 500mg daily, Folic acid 1mg daily. * Muscle spasm - Baclofen 10mg qhs * Vitamin D deficiency - D3 125mcg daily. * Infection prophylaxis - Doxycycline 100mg bid thru 05/15/2025. * Nutrition - Ensure Plus 120mL po tidcm. * GERD - Famotidine 20mg daily. * Nausea - Promethazine 12.5mg q6 prn. Medications at Discharge Home Medications apixaban 5 mg tablet (Eliquis) 5 mg PO BID BLOOD THINNER 30 days #60 tabs 02/06/25 ascorbic acid (vitamin C) 100 mg tablet (Vitamin C) 600 mg PO DAILY SUPPLEMENT 04/16/25 baclofen 10 mg tablet 10 mg PO QHS Muscle Spasm 04/16/25 vitamin D3 125 mcg (5,000 unit)-vitamin K2 100 mcg capsule 1 cap PO DAILY SUPPLEMENT 04/16/25 acetaminophen 500 mg tablet 1,000 mg (2 x 500 mg) PO Q8 Pain #0 tabs 05/14/25 famotidine 20 mg tablet 20 mg PO DAILY 30 days #30 tabs 05/23/25 ferrous sulfate 325 mg (65 mg iron) tablet (FeroSul) 325 mg PO 1200,1700 30 days#60 tabs 05/23/25 folic acid 1 mg tablet 1 mg PO BREAKFAST 30 days #30 tabs 05/23/25 oxycodone 5 mg tablet 5 - 10 mg (1 - 2 x 5 mg) PO Q4H PRN PRN Pain Score 4-10 7 days #42 tabs 05/23/25 sennosides 8.6 mg-docusate sodium 50 mg tablet (Stimulant Laxative Plus) 2 tab PO BID 30 days #120 tabs 05/23/25 Hospital Course Operations - (See below.) Procedures None Summary of Care Provided Minutes Spent on Discharge: 35 Hospital Course: 70 year old female with below past medical history 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 Gan, admitted to TCU with debility, here for rehabilitation, strengthening, prior to discharge home with spouse. 05/16/2025 Doppler ultrasound left lower extremity negative for DVT. Discharge home with 05/26/2025, [facility] PT/OT/SN. Physical Exam Const alert General Appearance: cooperative HEENT normocephalic Eyes PERRL and EOMs intact bilaterally Neck supple, no JVD and no carotid bruits Resp normal respiratory effort, normal air movement and clear to auscultation bilaterally Cardio regular rate and regular rhythm GI normal to inspection, nondistended, normoactive bowel sounds, non-tender and non-distended Extremity normal capillary refill General Extremity: Negative for edema Skin no rashes or lesions noted General Skin Exam: no breakdown Psych affect normal Appearance: appropriate Weight / BMI Weight Weight: 76.022 kg Body Mass Index (BMI) 32.9 ABG / Lab / Microbiology Data 05/22/25 05:08 05/22/25 05:08 D/C Instructions Discharge Diet: No restrictions Discharge Activity: Return to Normal Activity, May Shower and Use Walker Weight Bearing Status: Weight bearing as tolerated Call your doctor if you observe: Fever of 101 or Higher, Inability to urinate, Inability to have a bowel movement, Shortness of breath, Dizziness, Fainting spells, Swelling in the ankles, Chest pain and Uncontrolled pain DC O2, CPAP, BIPAP Needs Home O2 Discharge instructions: Yes Type of respiratory needs?: Oxygen (2 liters) Oxygen frequency: Other Other oxygen liters per minute: 2 Other oxygen frequency: As needed with exertion. DC home with Oxygen: Yes Home O2 MD Review: I have reviewed the oxygen testing, and the patient qualifies for home oxygen equipment and portability. The patient is mobile in the home and the community. Additional Instructions: Discharge home with 05/26/2025, [facility] PT/OT/SN. Please Follow Up With: Kasey Nunez PA-C When: As scheduled. Meaningful Use Info Meaningful Use Meaningful Use Diagnoses (Choose all that apply): None applicable Ischemic Stroke Statin Dosing Therapy Reference: STATIN DOSE THERAPY REFERENCE: * Patients > 75 years receive moderate or high dose statin therapy. * Patients 75 years or YOUNGER should receive HIGH intensity statin dose unless contraindicated. You will be required to document reason for non-treatment if statin daily dose does not meet guidelines. HIGH DOSE STATIN THERAPY DAILY Atorvastatin > than or = to 40 mg Rosuvastatin > than or = to 20 mg Amlodipine + Atorvastatin > than or = to 2.5/40 mg Ezetimibe + Simvastatin 10/80 mg Simvastatin 80mg Discharge Plan Admission Admit Date/Time: 05/14/25 15:04 Primary Reason for Your Visit: Debility. Attending Provider: Scott Mcdowell Chi Primary Care Provider: Scott Mcdowell Chi Instructions Additional Instructions / Restrictions: Discharge home with 05/26/2025, [facility] PT/OT/SN. Discharge Orders/Prescriptions Prescriptions: New famotidine 20 mg Tablet 20 mg PO DAILY 30 Days Qty: 30 0RF ferrous sulfate [FeroSul] 325 mg (65 mg iron) Tablet 325 mg PO 1200,1700 30 Days Qty: 60 0RF sennosides-docusate sodium [Stimulant Laxative Plus] 8.6-50 mg Tablet 2 tab PO BID 30 Days Qty: 120 0RF folic acid 1 mg Tablet 1 mg PO BREAKFAST 30 Days Qty: 30 0RF oxycodone 5 mg Tablet 5 - 10 mg PO Q4H PRN PRN (Reason: Pain Score 4-10) 7 Days Qty: 42 0RF Continued Eliquis 5 mg Tablet 5 mg PO BID 30 Days Qty: 60 0RF vitamin D3-vitamin K2 125 mcg (5,000 unit)-100 mcg capsule 1 cap PO DAILY Vitamin C 100 mg tablet 600 mg PO DAILY baclofen 10 mg Tablet 10 mg PO QHS acetaminophen 500 mg Tablet 1,000 mg PO Q8 Qty: 0 0RF Discontinued doxycycline monohydrate 100 mg Capsule 100 mg PO BID Qty: 0 0RF Rx Instructions: administer for 14 days then discontinue Ensure Surgery 0.08-1.4 gram-kcal/mL Liquid 237 ml PO TIDCM Qty: 0 0RF famotidine 20 mg Tablet 20 mg PO DAILY Qty: 0 0RF oxycodone 5 mg Tablet 5 - 10 mg PO Q4H PRN PRN (Reason: Pain Score 4-10) 2 Days Qty: 10 0RF sennosides-docusate sodium [Stimulant Laxative Plus] 8.6-50 mg Tablet 2 tab PO BID Qty: 0 0RF promethazine 25 mg Tablet 12.5 mg PO Q6H PRN PRN (Reason: Nausea/Vomiting) Qty: 0 0RF ferrous sulfate [FeroSul] 325 mg (65 mg iron) Tablet 325 mg PO 1200,1700 Qty: 0 0RF folic acid 1 mg Tablet 1 mg PO BREAKFAST Qty: 0 0RF Referrals / Follow Up: Scott Mcdowell Chi, MD [Primary Care Provider] - Disposition Disposition (needs filled in before D/C Order can be placed): Home Health Service 05/23/252103 <Electronically signed by Scott Mcdowell MD> Cosigner Signature (if applicable): CC: Dr. Scott Mcdowell MD~ Signed [facility] Work Phone: 1(288) 135-746906-25-2025 [facility]06-22-[address] [facility]06-17-2025 Progress note Author Anum Cody [facility] Note Date/Time May 15, 2025 5:25 pm [facility] Medical Records Department [address] [place] [address] Progress Note - Pharmacy 05/15/25 1538 MR#: [id number] Acct: [id number] Name: EDSON COOK Rep #:[id number] : 1955 70 From: Anum Cody PCP: Dr. Scott Mcdowell MD Status:ADM I N Location: TCU [place] [address] Documented by User: Anum Cody 05/15/25 15:53 TCU RX Drug Regimen Review Subjective/Objective Subjective/Objective Subjective: TCU Admission. 70 YOF 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 Gan. Admitted to TCU with debility for strengthening and rehabilitation. Objective: Allergies No Known Allergies Allergy (Verified 05/10/25 11:25) Current Medications Generic Name Dose Route Start Last Admin Trade Name Freq PRN Reason Stop Dose Admin Acetaminophen 1,000 mg 05/14/25 22:00 05/15/25 14:42 Acetaminophen 500 Mg Tablet PO 1,000 mg Q8 GABBI Administration Apixaban 5 mg 05/14/25 22:00 05/15/25 09:35 Apixaban 5 Mg Tablet PO 5 mg BID GABBI Administration Ascorbic Acid 500 mg 05/15/25 10:00 05/15/25 09:35 Ascorbic Acid 500 Mg Tablet PO 500 mg DAILY GABBI Administration Baclofen 10 mg 05/14/25 22:00 05/14/25 21:08 Baclofen 10 Mg Tablet PO 10 mg QHS GABBI Administration Cholecalciferol 125 mcg 05/15/25 10:00 05/15/25 09:35 Cholecalciferol (Vit D3) 125 Mcg Capsule (5,000 Units) PO 125 mcg DAILY GABBI Administration Doxycycline Monohydrate 100 mg 05/14/25 22:00 05/15/25 09:35 Doxycycline 100 Mg Capsule PO 05/25/25 22:01 100 mg BID GABBI Administration Famotidine 20 mg 05/15/25 10:00 05/15/25 09:35 Famotidine 20 Mg Tablet PO 20 mg DAILY GABBI Administration Ferrous Sulfate 325 mg 05/14/25 17:00 05/15/25 09:36 Ferrous Sulfate 325 Mg Tablet PO 325 mg 1200,1700 GABBI Administration Folic Acid 1 mg 05/15/25 08:00 05/15/25 09:35 Folic Acid 1 Mg Tablet PO 1 mg BREAKFAST GABBI Administration Magnesium Citrate 300 ml 05/14/25 19:20 Magnesium Citrate 300 Ml PO DAILY PRN CONSTIPATION Nutritional Formula (Lactose Free) 120 ml 05/15/25 07:45 05/15/25 13:26 Ensure Plus High Protein 120 Ml Liquid PO 120 ml TIDCM GABBI Administration Oxycodone HCl 5 - 10 mg 05/14/25 16:00 05/15/25 14:41 Oxycodone 5 Mg Tablet PO 5 mg Q4H PRN PRN Administration Pain Score 4-10 Promethazine HCl 12.5 mg 05/14/25 16:00 Promethazine 25 Mg Tablet PO Q6H PRN PRN Nausea/Vomiting Senna/Docusate Sodium 2 tablet 05/14/25 22:00 05/15/25 09:35 Senna/Docusate Sodium 1 Tablet PO 2 tablet BID GABBI Administration Sodium Chloride 10 - 40 ml 05/14/25 15:33 05/14/25 16:42 0.9% Saline Lock 10 Ml Syringe IV 10 ml UD PRN Administration SALINE FLUSH Tuberculin PPD 0.1 ml 05/22/25 10:00 Tuberculin,Purif.Prot.Deriv. 50 Tu/Ml Vial ID 05/22/25 10:01 X1 ONE Problem List Postoperative anemia (Acute) Chronic hypoxic respiratory failure (Chronic) Pulmonary embolism (Acute) Failed total left knee replacement (Acute) Pulmonary fibrosis (Suspected) Debility (Acute) Vital Signs Temp Pulse Resp BP Pulse Ox O2 Del Method O2 Flow Rate 98.2 F 83 16 96/47 L 100 Nasal Cannula 2 05/15/25 13:03 05/15/25 13:03 05/15/25 13:03 05/15/25 13:03 05/15/25 13:03 05/15/25 13:03 05/15/25 13:21 Oxygen Flow Rate (L/min) 2 Oxygen Delivery Method Nasal Cannula Weight: 77.791 kg Body Mass Index (BMI) 33.5 Sodium 139 mmol/L (133-145) 05/15/25 05:11 Potassium 4.4 mmol/L (3.3-5.1) 05/15/25 05:11 Chloride 103 mmol/L (98-108) 05/15/25 05:11 Carbon Dioxide 26.2 mmol/L (21.0-32.0) 05/15/25 05:11 Anion Gap 10 (5-15) 05/15/25 05:11 BUN 14 mg/dL (4-19) 05/15/25 05:11 Creatinine 0.58 mg/dL (0.70-1.20) L 05/15/25 05:11 Est GFR (MDRD) Non-Af 96 (>60) 05/15/25 05:11 BUN/Creatinine Ratio 24.8 RATIO (10-20) H 05/15/25 05:11 Glucose 104 mg/dL (70-99) H 05/15/25 05:11 Assessment/Plan: 1. Pain: acetaminophen 1000mg PO Q8 and oxycodone 5-10mg PO Q4H PRN pain 4-10. Resident has had 5 doses of oxycodone for pain scores of 6-8 in the knee. Pleasecontinue to monitor for increased pain, PRN usage, constipation, respiratory depression and falls (Roberto). 2. Bowel: senna/docusate 2T PO BID and magnesium citrate 300mL PO daily PRN constipation. No PRN doses needed. Please continue to monitor for constipation and PRN usage. Last documented bowel movement was 05/14/25. 3. Saddle embolism/right lower DVT/hypercoagulable state: apixaban 5mg PO BID. Please continue to monitor for S/S of bleeding/VTE, hemoglobin (last 9.3g/dL). 4. Infection prophylaxis: doxycycline 100mg PO BID thru 05/25/25. Please continueto monitor for S/S of infection, upset stomach and diarrhea. 5. Iron deficiency anemia: ferrous sulfate 325mg PO BID, ascorbic acid 500mg PO daily and folic acid 1mg PO daily. Please continue to monitor hemoglobin (last 9.3g/dL), constipation, dark stools. 6. Muscle spasms: baclofen 10mg PO QHS. Please continue to monitor for muscle spasms, confusion, drowsiness and dizziness. 7. GERD: famotidine 20mg PO daily. Please continue to monitor for S/S of GERD and renal function. 8. Nausea: promethazine 12.5mg PO Q6H PRN nausea/vomiting. Resident has not usedany doses. Please continue to monitor for nausea and PRN usage. 9. Vitamin D deficiency: cholecalciferol 125mcg PO daily. Please continue to monitor vitamin D levels (last 02/12/25). Assessment/Plan for indications treated with psychotropic medications: Resident is not prescribed scheduled or prn psychotropic medications at the time of this drug regimen review. Medical chart and medication regimen reviewed. The following medication irregularities or issues were identified: None Date Date of Note: 05/15/25 Documented by User: Dr. Scott Mcdowell MD 05/15/25 17:25 TCU RX Drug Regimen Review Provider Comments Provider responsibility Provider Comments to Recommendations by Pharmacy Agree 05/15/25 1553 <Electronically signed by Anum Cody> Anum Cody Cosigner Signature (if applicable): 05/15/25 1725 <Electronically signed by Scott Mcdowell MD> CC: ~ Signed [facility] Work Phone: 1(239) 303-908206-16-2025 History and physical note Author Scott Jeremias [facility] Note Date/Time May 14, 2025 7:20 pm [facility] Medical Records Department [address] [place] [address] History & Physical Exam 05/14/25 1906 MR#: [id number] Acct: [id number] Name: EDSON COOK Rep #:[id number] : 1955 70 From: Scott Mcdowell MD PCP: Dr. Scott Mcdowell MD Status:ADM I N Location: TCU [facility] HPI - General General Date of Admission: 05/14/25 Date of Service: 05/14/25 Chief Complaint: Here for rehabilitation. HPI Narrative EDSON COOK, is a 70 Female who presents with followin05/10/2025 Admit [facility]. 05/10/2025 Dr. Gan performed revision left total knee replacement, entire femoral component. 05/11/2025 Walking with walker. Doppler ultrasound left lower extremity 2/2 left calf swelling/+Duane's sign. Oxygen 2 liters per nasal cannula for chronic hypoxia. 05/12/2025 OOB to chair recliner. PT/OT TCU. Doxycycline 100mg bid for infection prophylaxis. Eliquis 5mg bid for dvt prophylaxis/pulmonary embolism/hypercoagulable state. 05/13/2025 Medically stable. Tylenol scheduled, Oxycontin scheduled, Oxycodone prn pain. Doppler ultrasound bilateral lower extremity negative dvt. Surgical cultures negative to date, continue Doxycycline. 05/14/2025 Ella hose 2 weeks postoperatively. Hemoglobin 9.3, start iron folic acid. 05/14/2025 Admit to TCU with debility, here for rehabilitation, strengthening, prior to discharge home with . [facility] Medical History Wears contact lenses Post-menopausal Walker as ambulation aid Blackout Non-smoker On home oxygen therapy Shortness of breath on exertion History of pain when walking History of edema History of echocardiogram Failed total left knee replacement Osteoarthritis of left knee Pulmonary fibrosis Right leg DVT Saddle pulmonary embolus Acute respiratory failure with hypoxia Debility Home Medications ?Medication ?Instructions ?Recorded ?Last Taken ?Type apixaban 5 mg tablet (Eliquis) 5 mg PO BID BLOOD THINN ER 30 days 02/06/25 05/14/25 08:50 Rx #60 tabs ascorbic acid (vitamin C) 100 mg 600 mg PO DAILY SUPPL EMENT 04/16/25 05/05/25 History tablet (Vitamin C) baclofen 10 mg tablet 10 mg PO QHS Muscle Spasm 05/09/25 History vitamin D3 125 mcg (5,000 1 cap PO DAILY SUPPLEMENT 05/05/25 History unit)-vitamin K2 100 mcg capsule acetaminophen 500 mg tablet 1,000 mg (2 x 500 mg) PO Q 8 Pain 05/14/25 05/14/25 06:40 Rx #0 tabs doxycycline monohydrate 100 mg 100 mg PO BID infection #0 caps 05/14/25 05/14/25 08:50 Rx capsule famotidine 20 mg tablet 20 mg PO DAILY stomach acid #0 tabs 05/14/25 05/14/25 08:50 Rx ferrous sulfate 325 mg (65 mg 325 mg PO 1200,1700 supp lement #0 05/14/25 Unknown Rx iron) tablet (FeroSul) tabs folic acid 1 mg tablet 1 mg PO BREAKFAST supplement #0 05/14/25 Unknown Rx tabs nut.tx.comp. immune systm,reg 0.08 237 ml PO TIDCM t supplement #0 05/14/25 05/12/25 Rx gram-1.4 kcal/mL oral liquid mL (Ensure Surgery) oxycodone 5 mg tablet 5 - 10 mg (1 - 2 x 5 mg) PO Q4H 05/14/25 05/14/25 08:50 Rx PRN PRN Pain Score 4-10 2 days #10 tabs promethazine 25 mg tablet 12.5 mg (1/2 x 25 mg) PO Q6H PRN 05/14/25 Unknown Rx PRN Nausea/Vomiting #0 tabs sennosides 8.6 mg-docusate sodium 2 tab PO BID constip ation #0 tabs 05/14/25 05/14/25 08:50 Rx 50 mg tablet (Stimulant Laxative Plus) Allergy/AdvReac Type Severity Reaction Status Date / Time No Known Allergies Allergy Verified 05/10/25 11:25 Surgical History Hx of tubal ligation History of appendectomy Total knee replacement status Social History household members: spouse Smoking Status: Never smoker alcohol intake: never substance use type: does not use ROS Constitutional Constitutional: Reports weakness; Denies chills, fever(s) or weight gain ENT HEENT: Denies headache(s), nasal congestion or nasal discharge Cardiovascular Cardiovascular: Denies chest pain or palpitations Respiratory/Chest Respiratory/Chest: Denies cough, excessive phlegm production or shortness of breath with exertion Gastrointestinal Gastrointestinal: Denies abdominal pain, nausea or vomiting Genitourinary Genitourinary: Denies dysuria Musculoskeletal Musculoskeletal: Reports joint pain; Denies joint swelling Integumentary Integumentary: Denies rash or wounds Neurologic Neurologic: Denies focal weakness, numbness or tingling Psychiatric Psychiatric: Denies anxiety, auditory hallucinations, depression, homicidal ideation or suicidal ideation Vital Signs Vital Signs Vital Signs: 05/14/25 15:21 05/14/25 15:21 Temperature 97.8 F Temperature Source Temporal Pulse Rate 87 87 Pulse Rhythm Regular Pulse Strength Normal (2+) Respiratory Rate 16 16 Respiratory Effort Normal Non-Labored Respiratory Depth Normal Respiratory Pattern Normal Blood Pressure 113/61 Blood Pressure Mean 78 Blood Pressure Source Monitor Blood Pressure Position Sitting Blood Pressure Location Left Arm Pulse Ox 98 98 Oxygen Delivery Method Nasal Cannula Nasal Cannula Oxygen Flow Rate (L/min) 2 2 Weight Weight: 77.678 kg Body Mass Index (BMI) 33.4 Physical Exam Const alert General Appearance: cooperative HEENT normocephalic Eyes PERRL and EOMs intact bilaterally Neck supple, no JVD and no carotid bruits Resp normal respiratory effort, normal air movement and clear to auscultation bilaterally Cardio regular rate and regular rhythm GI normal to inspection, nondistended, normoactive bowel sounds, non-tender and non-distended Extremity normal capillary refill Extremity Narrative: Bilateral lower extremity ELLA hose, left knee dressed. General Extremity: Negative for edema Skin no rashes or lesions noted General Skin Exam: no breakdown Psych affect normal Appearance: appropriate Assessment & Plan Assessment/Plan (1) Debility: (2) Failed total left knee replacement: QUALIFIERS: Encounter type: sequela Qualified Code(s): T84.093S -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 (3) Chronic hypoxic respiratory failure: (4) Postoperative anemia: (5) Pulmonary embolism: QUALIFIERS: Acute cor pulmonale presence: without acute cor pulmonale Chronicity: acute Pulmonary embolism type: saddle Qualified Code(s): I26.92 - Saddle embolus of pulmonary artery without acute cor pulmonale (6) Pulmonary fibrosis: PLAN: Plan 70 year old female with below past medical history 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 Gan, admitted to TCU with debility, here for rehabilitation, strengthening, prior to discharge home with spouse. * Debility - PT/OT. * Pain - Tylenol 1000mg q8, Oxycodone 5mg to 10mg q4 prn. * Bowel - senna/colace 2 tablets bid, Magnesium citrate 300mL daily prn. * Adult immunization - Administer pneumonia vaccine, covid vaccine, flu vaccine as appropriate * DVT prophylaxis - Eliquis. * Chronic hypoxia - Oxygen 2 liters per nasal cannula prn. * Saddle embolism/right lower dvt/hypercoagulable state - Eliquis 5mg bid. * Iron deficiency anemia - Ferrous sulfate 325mg bid, Vitamin C 500mg daily, Folic acid 1mg daily. * Muscle spasm - Baclofen 10mg qhs * Vitamin D deficiency - D3 125mcg daily. * Infection prophylaxis - Doxycycline 100mg bid thru 05/15/2025. * Nutrition - Ensure Plus 120mL po tidcm. * GERD - Famotidine 20mg daily. * Nausea - Promethazine 12.5mg q6 prn. 05/14/251919 <Electronically signed by Scott Mcdowell MD> Cosigner Signature (if applicable): CC: Dr. Scott Mcdowell MD~ Signed [facility] Work Phone: 1(556) 705-286206-16-2025 [facility]06-16-2025 [facility]06-16-2025 Progress note Author Kasey Nunez [facility] Note Date/Time May 14, 2025 12:5 1pm [facility] Medical Records Department [address] [place] [address] Progress Note - Orthopedic 05/14/25 1237 MR#: [id number] Acct: [id number] Name: ESDON COOK Rep #:[id number] : 1955 70 From: Kasey ROSARIO PCP: Dr. Scott Mcdowell MD Status:ADM I N Location: MS3 IL578-3 Subjective Subjective Patient is comfortable in bedside chair upon examination. Patient is much more cheery than she was when I previously saw her on Wednesday. Patient states that she has had a bowel movement today. Patient states that she has worked with physical therapy and things have went well. Patient states she has been weightbearing with her walker. Patient has been accepted to [facility]. Patient states that she feels she just has a lot of swelling in the knee. Patient states that she is feeling much better than over the weekend. Patient denies any fevers, chills, signs of infection. Patient denies any new numbness or tingling. Patient denies any shortness of breath, chest pain. Patient denies any nausea, vomiting, dizziness. Patient denies any adverse events overnight. Objective Data Objective Data Vital Signs: Vital Signs Temp Pulse Resp BP Pulse Ox O2 Del Method O2 Flow Rate 97.8 F 86 16 113/52 L 98 Room Air 2 05/14/25 08:29 05/14/25 10:40 05/14/25 10:40 05/14/25 10:40 05/14/25 08:29 05/14/25 08:30 05/14/25 08:15 Oxygen Flow Rate (L/min) 2 Oxygen Delivery Method Room Air Weight: 76.5 kg Body Mass Index (BMI) 32.9 Intake & Output: Intake and Output for Last 24 Hours 05/12/25 05/13/25 05/14/25 23:59 23:59 23:59 Intake Total 950 / 1250 1400 / 1800 600 / 600 Balance 950 / 1250 1400 / 1800 600 / 600 Lab / Micro Data 05/14/25 05:58 05/11/25 05:47 Labs: Laboratory Results - last 24 hr 05/14/25 05:58: WBC 8.0, RBC 3.24 L, Hgb 9.3 L, Hct 28.7 L, MCV 88.6, MCH 28.7, MCHC 32.4, RDW Std Deviation 46.1 H, RDW Coeff of Xi 14.3, Plt Count 220, MPV 10.3 Micro: Microbiology 05/10/25 15:05 Tissue - Knee Gram Stain - Final 05/10/25 15:05 Tissue - Knee Wound Culture - Final No growth aerobically. 05/10/25 15:05 Tissue - Knee Anaerobic Culture - Preliminary No growth in 48 hours. 05/10/25 15:11 Tissue - Femoral Membrane Gram Stain - Final 05/10/25 15:11 Tissue - Femoral Membrane Wound Culture - Final No growth aerobically. 05/10/25 15:11 Tissue - Femoral Membrane Anaerobic Culture - Preliminary No growth in 48 hours. 05/10/25 15:09 Tissue - Tibial Membrane Gram Stain - Final 05/10/25 15:09 Tissue - Tibial Membrane Wound Culture - Final No growth aerobically. 05/10/25 15:09 Tissue - Tibial Membrane Anaerobic Culture - Preliminary No growth in 48 hours. Physical Exam Narrative Vital signs stable and afebrile. SCDs and ELLA hose are in place bilaterally Knee immobilizer in place Patient is able to plantarflex and dorsiflex actively. Sensation intact to light touch. Neurovascular intact overall. Dressing is clean dry and intact. Negative Homans bilaterally. Tenderness to palpation in left calf with a negative Doppler ultrasound. Const alert, oriented x3 and no apparent distress Assessment & Plan Assessment/Plan (1) Failed total left knee replacement: QUALIFIERS: Encounter type: sequela Qualified Code(s): T84.093S -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 PLAN: 1. S/P revision left total knee replacement, entire femoral component POD#4 2. Pain Medications: Tylenol 1000 mg every 8 hours, and oxycodone as needed forpain control. Patient is not to take any anti-inflammatory medications while onher regular dose of Eliquis. Patient was taking OxyContin which has been taken off of the medication list by hospitalist. Patient states that her pain is adequately controlled. 3. DVT Prophylaxis: Patient is to resume her regular dose of Eliquis. 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 Patient will continue with ELLA hose for 2weeks postoperatively. 4. PT/OT: Patient will be weightbearing as tolerated with her walker. Patient does not have outpatient physical therapy established as she is in hopes and thought she was going to transitional care unit. 5. H & H: 9.3/28.7, asymptomatic. Patient's vitals are stable and patient is afebrile. We will begin ferrous sulfate and folic acid at this time due to a hemoglobin below 10. Patient was educated to get outpatient labs within 5 days and follow-up with primary care provider to manage chronic anemia. Patient was educated about risk of constipation while on ferrous sulfate and folic acid. 6. Doxycycline: Patient will be on doxycycline for 2 weeks postoperatively due to nature of revision surgery. Patient was educated on the risk of sunburn while taking doxycycline. Patient was educated to take a probiotic while takingdoxycycline. Patient voiced understanding. 7. Microbiology: All microbiology is still pending at this point. Will continue to monitor and review. 8. Patient has gotten acceptance to transitional care unit at this time. Patient states that she feels ready to go to transitional care unit. 9. Incentive spirometry: Patient was encouraged to use incentive spirometer every hour that they will be awake for the first week to decrease risk of postoperative lung infection. 10. Postoperative constipation: Will continue with senna 2 tablets twice daily until first bowel movement. Patient was advised if not having a bowel movement after day 3 she is to contact orthopedics so appropriate change can be made. Patient states that she has had a bowel movement at this time. 11. Continue postoperative medical treatment per medicine 12. Patient did have a Doppler ultrasound due to positive Homans which was negative. Patient does still have some calf tenderness. 13. Disposition: At this time patient has been accepted to [facility] transitional care unit. Patient states that she feels that she is ready to go to transitional care unit. Patient did have a positive Homans but aDoppler ultrasound was ordered to rule out DVT. Doppler ultrasound was negative. Patient is on doxycycline due to nature of revision surgery. Patientstates that she has worked with physical therapy and has done well. Patient wasplaced on ferrous sulfate and folic acid due to hemoglobin under 10. Patient will continue to be weightbearing as tolerated with walker. Patient was encouraged to stay on top of her pain and take medication when she needs it. Patient was encouraged to continue working hard with physical therapy to get herknee bending to avoid postoperative stiffness again. Patient voiced understanding. Medicine and case management are involved in this case. Appreciate recommendations from medicine as well as patient case management for safe and proper discharge. Patient will have follow-up appointment scheduled atour office in 2 weeks for reevaluation. At this time patient is okay for discharge as long as pain maintains adequately controlled, works with physical therapy, and is okay per medicine doctors instructions. Patient was encouraged to call with any questions, concerns, new problems. 05/14/25 [id number] <Electronically signed by Kasey ROSARIO> Cosigner Signature (if applicable): CC: ~ Signed [facility] Work Phone: 1(800) 625-989406-16-20[address]charge [address] Harden [facility] Note Date/Time May 14, 2025 11:4 4am [facility] Medical Records Department [address] [place] [address] Transfer to [facility] Care MR#: [id number] Acct: [id number] Name: EDSON COOK Rep #:[id number] : 1955 70 From: Lane Harden DO PCP: Dr. Scott Mcdowell MD Status:ADM I N Certification of patient admission REQUIRED AT TIME OF ADMISSION. I CERTIFY THAT POST-HOSPITAL ECF SERVICES ARE REQUIRED TO BE GIVEN ON AN IN-PATIENT BASIS BECAUSE OF THE ABOVE NAMED PATIENT'S NEED FOR CORRECTION CARE ON A CONTINUING BASIS FOR THE CONDITION(S) FOR WHICH HE/SHE WAS RECEIVING IN-PATIENT HOSPITAL SERVICES PRIOR TO HIS/HER TRANSFER TO THE F. 05/14/25 1144<Electronically signed by Lane Harden DO> Diet Diet Order/Speech Therapy: INPATIENT Hospital Diet / Speech Therapy Order(s) 05/11/25 05:21 Diet: Regular - General Routine Orders/Code Status Code Status: Full Code DC O2, CPAP, BIPAP needs Home O2 Discharge instructions: Yes Type of respiratory needs?: Oxygen Oxygen frequency: Continuous Continuous oxygen liters per minute: 2 L Wound(s) LEFT KNEE: Wound Type: Surgical Incision Therapies Weight Bearing: Full weight bearing (with walker) Physical Therapy: Eval and Treat Occupational Therapy: Eval and Treat Problem/Diagnosis (1) Pulmonary hypertension: Status: Chronic Code(s): I27.20 - Pulmonary hypertension, unspecified Comment: RVSP 40 mmHg (2) Failed total left knee replacement: Status: Acute Code(s): T84.093A - Other 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, initial encounter Plan 1. 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-status post revision left total knee, entire femoral component-postop day #3 The plan is for the [facility] which she will have to pay from her own funds Total clinical time spent by myself addressing the patient's medical issues, reviewing all of her data, and collaborating with patient's care team: 35 minutes Allergies/Procedures Done in Hospital Allergies No Known Allergies Allergy (Verified 05/10/25 11:25) Procedures: - (revision right total knee replacement, entire femoral component) Type of Care/Length of Stay Estimated LOS: Convalescent Care Less Than 30 days Type of Care Needed: Skilled Rehab Potential: Good Prognosis: Good Additional Orders/Day of Discharge H&P will serve as current which was dated: 05/03/25 Day of Discharge: 05/14/25 Discharge Plan Admission Admit Date/Time: 05/10/25 10:42 Primary Reason for Your Visit: revision of right toal knee replacemt Attending Provider: Bria Gan Primary Care Provider: Scott Mcdowell [employer] Providers: Lane Harden Discharge Orders/Prescriptions Prescriptions: New acetaminophen 500 mg Tablet 1,000 mg PO Q8 Qty: 0 0RF doxycycline monohydrate 100 mg Capsule 100 mg PO BID Qty: 0 0RF Rx Instructions: administer for 14 days then discontinue Ensure Surgery 0.08-1.4 gram-kcal/mL Liquid 237 ml PO TIDCM Qty: 0 0RF famotidine 20 mg Tablet 20 mg PO DAILY Qty: 0 0RF oxycodone 5 mg Tablet 5 - 10 mg PO Q4H PRN PRN (Reason: Pain Score 4-10) 2 Days Qty: 10 0RF sennosides-docusate sodium [Stimulant Laxative Plus] 8.6-50 mg Tablet 2 tab PO BID Qty: 0 0RF promethazine 25 mg Tablet 12.5 mg PO Q6H PRN PRN (Reason: Nausea/Vomiting) Qty: 0 0RF Continued Eliquis 5 mg Tablet 5 mg PO BID 30 Days Qty: 60 0RF vitamin D3-vitamin K2 125 mcg (5,000 unit)-100 mcg capsule 1 cap PO DAILY Vitamin C 100 mg tablet 600 mg PO DAILY baclofen 10 mg Tablet 10 mg PO QHS Discontinued albuterol sulfate [Ventolin HFA] 90 mcg/actuation HFA aerosol inhaler 2 inh inhalation Q4H PRN (Reason: shortness of breath or wheezing) Qty: 18 11RF gabapentin 100 mg Capsule 200 mg PO TIDCM 30 Days Qty: 180 0RF tramadol 50 mg Tablet 50 mg PO QHS PRN (Reason: Pain Score 4-5 Or Pre Pt/Ot) enoxaparin 80 mg/0.8 mL syringe 80 mg subcut Q12H Referrals / Follow Up: Bria Gan MD [Med Staff - Active Staff] - See Referral Note (in two weeks) Scott Mcdowell Chi, MD [Primary Care Provider] - Disposition Disposition (needs filled in before D/C Order can be placed): Assisted Facility (2) Failed total left knee replacement Qualifiers: Encounter type: sequela Qualified Code(s): T84.093S - 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 05/14/25 1144 <Electronically signed by Lane Harden DO> Cosigner Signature (if applicable): CC: Dr. Lane Harden DO; Dr. Scott Mcdowell MD ~ [facility] Work Phone: [phone] History and physical note Author Kasey Nunez [facility] Note Date/Time May 13, 2025 9:28 pm [facility] Medical Records Department [address] [place] [id number] History & Physical Exam 05/13/252125 MR#: [id number] Acct: [id number] Name: EDSON COOK Rep #:[id number] : 1955 70 From: Kasey ROSARIO PCP: Dr. Scott Mcdowell MD Status:ADM I N Location: [facility] [place] GV446-0 History and Physical History and Physical Patient Name: Edson CookDOB: 1955 From: KASEY NUNEZ PA-C DATE OF PRE-OPERATIVE EXAM: 05/03/2025 DATE OF SURGERY: 05/10/2025 SCHEDULED PROCEDURE: Left knee revision femoral component. HISTORY OF PRESENT ILLNESS: The patient presents with a chief complaint of continued stiffness, pain and constant needling pain from her knee down to her foot following a failed totalknee arthroplasty. The pain is described as a bee sting sensation and has been present since the day after surgery. The patient reports severe stiffness in herknee, with range of motion limited to 0-15 degrees. She experiences significant pain and swelling with attempts at physical therapy. The patient's surgical history includes a recent total knee replacement complicated by stiffness and persistent pain. The recent knee surgery was further complicated by a pulmonary embolism. The patient also has a history of reflex sympathetic dystrophy (RSD) in her hand, which may contribute to her current nerve pain. Patient's initial recovery after the knee replacement gone well. After around 4 weeks patient began to have pain and started to lose range of motion. It was initially felt that this was likely related to some therapy related swelling or hemarthrosis. However, patient went on to have progressive loss of range of motion and continued pain. Further x-rays were consistent with radiographic lucencies around the femoral component and bony interface. At that time patient was scheduled for revision of the femoral component. However 1 week before her surgery which we did attempt to expedite patient had a pulmonary embolus and wasadmitted to the hospital. She presents today after having discussions with her primary care physician and cork painter and grader to discuss proceeding with surgical intervention as they feel it is appropriate at this time. She does remain on oxygen therapy. The patient reports that her knee swells like a balloon with movement attempts, causing sleep disturbances. She mentions having constant pain from where the robot went into the knee, which makes her foot jump. Numbness extends from her buttocks down to her toes on the affected side. The patient is currently using oxygen with activity and at night. Previous treatments include physical therapy, which has been difficult due to pain and swelling.The patient spent time in transitional care for monitoring following her pulmonary embolism. The patient expresses frustration with her recovery, noting that initially, she thought she was doing well with knee flexion up to 115 degrees, but the needlingsensation persisted. She admits to not complaining enough about her pain during her previous recovery period. REVIEW OF SYSTEMS: Review Of Systems: Constitutional: Reports weight change, but denies fever. Cardiovasular: Denies chest pain, heart murmur and irregular heartbeat. Respiratory: Reports cough, but denies pneumonia, shortness of breath, tuberculosis and wheezing. Gastrointestinal: Denies constipation, diarrhea, heartburn, nausea, rectal itching, bloody stools and vomiting. Genitourinary: . (F Genital Sx) . (Urinary Sx) Musculoskeletal: Reports gait disturbance, leg swelling, pain, trouble walking and weakness. Skin: Reports history of shingles, but denies Raynaud's and tattoo. Neurological: Denies ambulatory dysfunction, dizziness, numbness/tingling and tremor. Psychiatric: Denies anxiety, insomnia and stress. Hematologic/Lymphatic: Denies anemia, bleeding/bruising tendency and past transfusion. Reviewed, no changes. PAST MEDICAL HISTORY: Advance Care Plan: Other Directive, LIVING WILL Effective Date: 08/22/2024 Other Directive, POA Effective Date: 08/22/2024 Past Medical History: Medical Problems: Pulmonary Embolism - (01/23/2025) saddle muscle spasms sciatica - left side pulmonary fibrosis respiratory failure - with with hypoxia Vitamin D deficiency Dependence of Oxygen with exertion - 2 liters daily neuropathy - below bilateral knees debillity, anticardiolipin antibody positive History Of Blood Clots/ DVT - (01/23/2025) right leg rheumatoid factor positive, pulmonary hypertension Accidents: Fracture - (1962) Left Wrist [place] Surgical Hx: Appendectomy - (1966) [place] Tubal Ligation - (1976) [place] Knee Replacement LT - (11/16/2024) ROBOTIC ASSISTED DR. GAN AT [facility] Anesthesia Complications: None Assistive Devices: Glasses, Oxygen - 2 liters daily, not at rest or at night , Walker Reviewed, no changes. SOCIAL HISTORY: Social History: Marital: .Occupation: [employer].Work Status: Currently Working - from home.Hand Dominance: Right-handed. Personal Habits: Cigarette Use: Never Smoked Cigarettes.Smokeless Tobacco: Never Used Smokeless Tobacco.E-Cigarette Use: Never used.Alcohol: Occasionally.Drug Use: Denies Use.Enjoy Exercising: Exercises 1-3 X/Week. Reviewed, no changes. VITALS: Ht: 60 Wt: 168lb Wt k.205 BMI: 32.8 BP: 126/70 Pulse: 99 Resp: 17 T: 97.9 T: 36.6C Pain Level: 8/10 O2SatR: 96 ALLERGIES: No Known Drug Allergy MEDICATIONS: Vitamin C 500 mg 1 po bid, Gabapentin 100 mg 2 by mouth three times a day, Eliquis 5 mg on hold due to heparin injections, Tramadol HCL 50 mg 1 by mouth atnight, Baclofen 10 mg 1 by mouth every day, Vitamin D 50 mcg (1999 Ut) 1 po qdaily, Enoxaparin Sodium 80 mg/0.8ml twice daily, Senna-Docusate Sodium 8.6-50 mg as needed PRE-OP EXAM: General appearance:NORMAL Other: Eyes: Conjunctivae and lids: NORMAL Pupils: ERR Ears, Nose, Mouth, and Throat: NORMAL Other: Inspection of lips, teeth and gums: NORMAL Other: Neck: Examination of neck: no masses noted. Respiratory: Assessment of respiratory effort: NORMAL Other: Auscultation of lungs: clear to auscultation no wheezes, rhonchi or rales. Cardiovascular: Auscultation of heart: regular rate and rhythm, no murmurs, gallops or rubs. Exam of carotid arteries: NORMAL Other: Gastrointestinal: Exam of abdomen: soft, nontender, nondistended bowel sounds present. Lymphatic: Palpation of nodes in neck: NORMAL Other: Palpation of nodes in Axillae: NORMAL Other: Neurological: see below Psychiatric: Orientation to time, place and person: NORMAL Other: Mood and affect: NORMAL Other: PHYSICAL EXAMINATION: General: Nondistressed, on oxygen - Physical Examination: - Musculoskeletal: - Right Knee: - Range of Motion: 0 to 15 degrees. -Large effusion - Gait: Walking with a slight stiffness but overall walking well. - Incision Site: Sensitive. - Neurological: - Foot and Toe Movement: 5 out of 5 dorsiflexion EHL plantarflexion. Sensations intact light touch dorsum of foot. IMAGING STUDIES: - Diagnostic Test Results and Labs: - 2 views of the left knee AP and lateral show findings consistent with previous evidence of radiographic loosening of the femoral component. Tibial component appears to remain stable and well-fixed. These were compared to her most recent set of previous radiographs and found to be consistent. 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 At this time the patient does wish to proceed with the above-stated procedure. Potential risks benefits and complications of the procedure were discussed and reviewed with the patient including but not limited to , infection, nerve and blood vessel damage, persistent pain, numbness, tingling, paresthesias, blood clot, pulmonary embolism, in the requirement for possible further surgery. Patient expressed full understanding. Has no further questions for the doctor. Does agree to proceed with the above-stated procedure, and has signed the appropriate surgery consent form. DVT prophylaxis: Patient will begin regular dose of Eliquis following surgery. Patient will wear ELLA hose for 2 weeks postoperatively. No NSAIDs due to Eliquis. Pain medications: Patient will be on Tylenol 1000 mg every 8 hours, oxycodone asneeded for pain control. Patient will take senna as needed for postoperative constipation. Patient will take famotidine for 30 days postoperatively. ___ I have re-examined the patient. There are no clinical changes since date of exam. ___ See progress notes for changes. ___ Dictated on admission Date: Time: Signature: 05/13/252127 <Electronically signed by Kasey ROSARIO> Cosigner Signature (if applicable): CC: ABRAHAM Peace; Dr. Scott Mcdowell MD~ Signed [facility] Work Phone: 1(440) 435-170906-15-2025 [facility]06-15-[address] [facility] Note Date/Time May 13, 2025 11:3 2am [facility] Medical Records Department [address] [place] [address] Progress Note - Hospitalist 05/13/25 1131 MR#: [id number] Acct: [id number] Name: EDSON COOK Rep #:[id number] : 1955 70 From: Lane Harden DO PCP: Dr. Scott Mcdowell MD Status:ADM I N Location: [facility]3 [id number] 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 (05/10/25) Encounter for other preprocedural examination (05/10/25) Subjective Subjective Patient was seen and examined today, she remains medically stable at this time Objective Data Objective Data Vital Signs: Vital Signs Temp Pulse Resp BP Pulse Ox O2 Del Method O2 Flow Rate 98.5 F 83 16 104/43 L 99 Nasal Cannula 2 05/13/25 09:08 05/13/25 11:09 05/13/25 09:08 05/13/25 11:09 05/13/25 11:09 05/13/25 11:09 05/13/25 11:09 Oxygen Flow Rate (L/min) 2 Oxygen Delivery Method Nasal Cannula Weight: 76.5 kg Body Mass Index (BMI) 32.9 Intake & Output: Intake and Output for Last 24 Hours 05/11/25 05/12/25 05/13/25 23:59 23:59 23:59 Intake Total 1350 / 1350 950 / 1250 600 / 600 Balance 1350 / 1350 950 / 1250 600 / 600 Lab / Micro Data 05/11/25 05:47 05/11/25 05:47 Micro: Microbiology 05/10/25 15:05 Tissue - Knee Gram Stain - Final 05/10/25 15:05 Tissue - Knee Wound Culture - Preliminary No growth-Final to follow 05/10/25 15:05 Tissue - Knee Anaerobic Culture - Preliminary No growth in 48 hours. 05/10/25 15:11 Tissue - Femoral Membrane Gram Stain - Final 05/10/25 15:11 Tissue - Femoral Membrane Wound Culture - Preliminary No growth-Final to follow 05/10/25 15:11 Tissue - Femoral Membrane Anaerobic Culture - Preliminary No growth in 48 hours. 05/10/25 15:09 Tissue - Tibial Membrane Gram Stain - Final 05/10/25 15:09 Tissue - Tibial Membrane Wound Culture - Preliminary No growth-Final to follow 05/10/25 15:09 Tissue - Tibial Membrane Anaerobic Culture - Preliminary No growth in 48 hours. Physical Exam Narrative alert, oriented x3, no apparent distress and healthy appearing General Appearance: cooperative, well kempt and well developed Orientation / Consciousness: awake, oriented to person, oriented to place and oriented to time HEENT normocephalic, head/scalp atraumatic, moist oral mucous membranes and oropharynxnormal Eyes PERRL, EOMs intact bilaterally and conjunctivae normal Neck supple, no JVD, thyroid normal and no carotid bruits General: trachea midline Resp normal respiratory effort, no retractions, no use of accessory muscles and clearto auscultation bilaterally Auscultation: Negative for rales, rhonchi or wheezes Cardio regular rate, regular rhythm, S1 normal heart sound, S2 normal heart sound, no murmurs, no rub and no gallops GI normal to inspection, nondistended, normoactive bowel sounds, soft to palpation,non-tender and non-distended Extremity no clubbing, cyanosis or edema Skin no rashes or lesions noted General Skin Exam: no breakdown Neuro oriented x3, CN's II-XII intact bilaterally, moves all extremities, no focal motor deficits and no sensory deficits noted Sensorium / Orientation: awake and alert Speech: speech normal Psych affect normal Const alert, oriented x3, no apparent distress and healthy appearing General Appearance: cooperative, well kempt and well developed Orientation / Consciousness: awake, oriented to person, oriented to place and oriented to time HEENT normocephalic, head/scalp atraumatic, moist oral mucous membranes and oropharynxnormal Eyes PERRL, EOMs intact bilaterally and conjunctivae normal Neck supple, no JVD, thyroid normal and no carotid bruits General: trachea midline Resp normal respiratory effort, no retractions, no use of accessory muscles and clearto auscultation bilaterally Auscultation: Negative for rales, rhonchi or wheezes Cardio regular rate, regular rhythm, S1 normal heart sound, S2 normal heart sound, no murmurs, no rub and no gallops GI normal to inspection, nondistended, normoactive bowel sounds, soft to palpation,non-tender and non-distended Extremity no clubbing, cyanosis or edema Skin no rashes or lesions noted General Skin Exam: no breakdown Neuro oriented x3, CN's II-XII intact bilaterally, moves all extremities, no focal motor deficits and no sensory deficits noted Sensorium / Orientation: awake and alert Speech: speech normal Psych affect normal Assessment & Plan Assessment/Plan (1) Pulmonary hypertension: PLAN: Plan 1. 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-status post revision left total knee, entire femoral component-postop day #3 The plan is for the patient to go to TCU for rehab services which she will have to pay from her own funds Total clinical time spent by myself addressing the patient's medical issues, reviewing all of her data, and collaborating with patient's care team: 35 minutes Charges/Coding Visit Charges Inpatient E&M: 89102 Subs Hosp L2 05/13/25 1132 <Electronically signed by Lane Harden DO> Cosigner Signature (if applicable): CC: ~ Signed [facility] Work Phone: 1(442) 559-998706-15-2025 Progress note Author Andrea Hawkins [facility] Note Date/Time May 13, 2025 10:0 2am [facility] Medical Records Department [address] [place] [address] Progress Note - Orthopedic 05/13/25 0949 MR#: [id number] Acct: [id number] Name: EDSON COOK Rep #:[id number] : 1955 70 From: Andrea ROSARIO PA-C PCP: Dr. Scott Mcdowell MD Status:ADM I N Location: [place] [address] Subjective Subjective The patient was sitting in bedside chair upon examination. Patient is currentlyon room air without distress. She does require the oxygen overnight. She has past history of pulmonary embolism. She states she is never felt short of breath but will get increased heart rate and dizziness and lightheadedness. Shehas not experienced that yesterday or today. She has been monitoring with pulseox. Patient denies any chest pain, shortness of breath, dizziness, lightheadedness, nausea or vomiting, or calf pain. Patient continues to be in significant pain with her left knee. She is currently on long-acting and short acting narcotic. She is also on extra strength Tylenol. Patient reports that she is having to ask to get her pain medication. The ice has not been appropriately filled. Patient reports that she did not receive any formal physical therapy yesterday. The nurse did get her up and walk and she has been working on her exercises on her own. Objective Data Objective Data Vital Signs: Vital Signs Temp Pulse Resp BP Pulse Ox O2 Del Method O2 Flow Rate 98.5 F 79 16 109/51 L 97 Nasal Cannula 2 05/13/25 09:08 05/13/25 09:08 05/13/25 09:08 05/13/25 09:08 05/13/25 09:08 05/13/25 09:23 05/13/25 09:23 Oxygen Flow Rate (L/min) 2 Oxygen Delivery Method Nasal Cannula Weight: 76.5 kg Body Mass Index (BMI) 32.9 Intake & Output: Intake and Output for Last 24 Hours 05/11/25 05/12/25 05/13/25 23:59 23:59 23:59 Intake Total 1350 / 1350 950 / 1250 600 / 600 Balance 1350 / 1350 950 / 1250 600 / 600 Lab / Micro Data 05/11/25 05:47 05/11/25 05:47 Micro: Microbiology 05/10/25 15:05 Tissue - Knee Gram Stain - Final 05/10/25 15:05 Tissue - Knee Wound Culture - Preliminary No growth-Final to follow 05/10/25 15:09 Tissue - Tibial Membrane Gram Stain - Final 05/10/25 15:09 Tissue - Tibial Membrane Wound Culture - Preliminary No growth-Final to follow 05/10/25 15:11 Tissue - Femoral Membrane Gram Stain - Final 05/10/25 15:11 Tissue - Femoral Membrane Wound Culture - Preliminary No growth-Final to follow Physical Exam Narrative Vital signs stable and afebrile. Patient does have some soft blood pressure readings particularly around narcotic medication. She denies shortness of breath or dizziness today. SCDs and ELLA hose are in place bilaterally Patient is able to plantarflex and dorsiflex actively. Sensation is intact to light touch to saphenous, sural, superficial and deep peroneal, and tibial distribution. Dressing is clean dry and intact. Negative Homans bilaterally, negative signs and symptoms of DVT. Const alert, oriented x3 and no apparent distress Assessment & Plan Assessment/Plan (1) Failed total left knee replacement: QUALIFIERS: Encounter type: sequela Qualified Code(s): T84.093S -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 PLAN: 1. S/P revision left total knee replacement, entire femoral component POD#3 2. Pain Medications: Tylenol 1000 mg every 8 hours, Oxycontin BID scheduled andoxycodone as needed for pain control. Patient is not to take any anti- inflammatory medications while on her regular dose of Eliquis. Has had some decreased blood pressure with dose of COVID along as needed meds. Patient states her pain has been significantly increased after this surgery from previous total knee arthroplasty. She had to ask the nurses for pain medications. She continues to have significant increased pain. 3. DVT Prophylaxis: Patient is to resume her regular dose of Eliquis. 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 Patient will continue with ELLA hose for 2weeks postoperatively. SCDs while in house. If patient does go to do transitional care unit would recommend SCDs for the first 2 weeks. Doppler ultrasound of the lower extremities were negative. 4. PT/OT: Patient will be weightbearing as tolerated with her walker. Patient does not have outpatient physical therapy established as she is in hopes and thought she was going to transitional care unit. Patient did not receive any physical therapy yesterday and had to ask the nurse to get her up to walk. Casewas discussed with the charge nurse and it is adamant that patient is getting physical therapy today. Appreciate recommendations for discharge planning. 5. H & H: Most yesterday 10.8/34.0, asymptomatic. Patient's vitals are stable and patient is afebrile. Lab orders will be placed for tomorrow to continue to monitor. 6. Postoperative antibiotics: Currently on doxycycline for 2 weeks postoperatively. Microbiology wound and tissue specimens were reviewed in chartand there is currently no growth or organisms seen today. I discussed with the patient potential side effects of doxycycline including sensitivity to the sunlight and increased risk of skin burn. Recommend patient take appropriate precautions. Also recommend patient to take probiotic while on the antibiotic. Patient voiced understanding agreement. 7. Patient would like to go to the transitional care unit as she states her primary care provider stated that there would be a spot for her there following surgery. Have requested precertification from insurance awaiting results. Patient notes she will self-pay if she does not qualify for insurance standpointcost of been discussed the patient. This will likely take through the weekend as we are unlikely to have an insurance response on Wednesday or Wednesday. 8. Incentive spirometry: Patient was encouraged to use incentive spirometer every hour that they will be awake for the first week to decrease risk of postoperative lung infection and atelectasis. 9. Postoperative constipation: Will continue with senna 2 tablets twice daily until regular bowel movements. Patient was advised if not having a bowel movement after day 3 she is to contact orthopedics so appropriate change can be made. Patient states that she has had a bowel movement at this time. 10. Continue postoperative medical treatment per medicine 11. Patient did have positive Homans on examination yesterday. Doppler ultrasound was ordered to rule out blood clot due to previous history of DVT andpulmonary embolism. Doppler ultrasound has been negative. Results reviewed. 12. Hypotension: Patient has slight amount of hypotension. Seems to have increased hypotension with dosing of narcotics. Continue with regular vitals encourage p.o. fluid intake. Appreciate medical input. 13. Disposition: Patient continues to complain of increased pain with her left knee. Microbiology results have been reviewed in which there has been no growthon Gram stain and cultures. We will continue with doxycycline. I discussed with the patient adequate pain control and she is needing to make sure she is asking the nurse for narcotic medication as the short acting narcotic is an as needed medication. She voiced understanding. We will continue with the long-acting narcotic OxyContin until Wednesday, May 18, 2025. Will continue to monitorher vitals while on the narcotics. Patient at this time is currently awaiting petition for insurance for coverage of transitional care unit. Due to the nature of revision surgery we will plan to watch cultures and microbiology. Patient has progressive physical therapy was able to walk 220 feet on Wednesday. Patient never received any formal therapy yesterday. I did discuss this with the charge nurse and it is adamant that patient is getting physical therapy today. Patient does state that she is very painful and cannot imagine how anyone goes home following a surgery like this. Patient states that she was promised a spot in the TCU from her primary care provider. We did explain to the patient that this is not ensure that her insurance will approve treatment with a transitional care unit if she does not meet appropriate qualifications. Patient understands and does report willingness to pay privately. Case management is working on getting precertification from patient's insurance to [facility] TCU. Patient was educated in order to get her knee bending she needs to better control her pain to work with physical therapy to avoid postoperative stiffness. Patient voiced understanding. Medicine and case management are involved in this case. Appreciate recommendations from medicine as well as case management for safe and proper discharge. Patient willhave follow-up with our office in 2 weeks for reevaluation. Staff is encouragedto call with any questions, concerns, new problems. I have reviewed the [place] Autom[employer] Rx Reporting System (OARRS) report for this patient for refill pattern and other prescriber involvement as part of the appropriate surveillance for the provision of acute and chronic controlled medications. The report was requested and reviewed on the date of this entry and was considered in the prescribing process. This dictation was created using voice recognition software. Phonetic and/or grammatical errors may exist. 05/13/25 1002 <Electronically signed by Andrea ROSARIO PA-C> Cosigner Signature (if applicable): CC: ~ Signed [facility] Work Phone: 1(504) 187-102706-14-[address]arden [facility] Note Date/Time May 12, 2025 4:32 pm [facility] Medical Records Department [address] [place] [address] Progress Note - Hospitalist 05/12/25 1629 MR#: [id number] Acct: [id number] Name: EDSON COOK Rep #:[id number] : 1955 70 From: Lane Harden DO PCP: Dr. 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 I confirmed this with the patient today. Objective Data Objective Data Vital Signs: Vital Signs Temp Pulse Resp BP Pulse Ox O2 Del Method O2 Flow Rate 98.7 F 99 18 107/48 L 100 Nasal Cannula 2 05/12/25 14:17 05/12/25 14:17 05/12/25 14:17 05/12/25 14:17 05/12/25 14:17 05/12/25 15:51 05/12/25 15:51 Oxygen Flow Rate (L/min) 2 Oxygen Delivery Method Nasal Cannula Weight: 76.5 kg Body Mass Index (BMI) 32.9 Intake & Output: Intake and Output for Last 24 Hours 05/10/25 05/11/25 05/12/25 23:59 23:59 23:59 Intake Total 3050 / 3050 1350 / 1350 600 / 600 Output Total 125 / 125 Balance 2925 / 2925 1350 / 1350 600 / 600 Lab / Micro Data 05/11/25 05:47 05/11/25 05:47 Micro: Microbiology 05/10/25 15:05 Tissue - Knee Gram Stain - Final 05/10/25 15:05 Tissue - Knee Wound Culture - Preliminary No growth-Final to follow 05/10/25 15:09 Tissue - Tibial Membrane Gram Stain - Final 05/10/25 15:09 Tissue - Tibial Membrane Wound Culture - Preliminary No growth-Final to follow 05/10/25 15:11 Tissue - Femoral Membrane Gram Stain - Final 05/10/25 15:11 Tissue - Femoral Membrane Wound Culture - Preliminary No growth-Final to follow Physical Exam Narrative alert, oriented x3, no apparent distress and healthy appearing General Appearance: cooperative, well kempt and well developed Orientation / Consciousness: awake, oriented to person, oriented to place and oriented to time HEENT normocephalic, head/scalp atraumatic, moist oral mucous membranes and oropharynxnormal Eyes PERRL, EOMs intact bilaterally and conjunctivae normal Neck supple, no JVD, thyroid normal and no carotid bruits General: trachea midline Resp normal respiratory effort, no retractions, no use of accessory muscles and clearto auscultation bilaterally Auscultation: Negative for rales, rhonchi or wheezes Cardio regular rate, regular rhythm, S1 normal heart sound, S2 normal heart sound, no murmurs, no rub and no gallops GI normal to inspection, nondistended, normoactive bowel sounds, soft to palpation,non-tender and non-distended Extremity no clubbing, cyanosis or edema Skin no rashes or lesions noted General Skin Exam: no breakdown Neuro oriented x3, CN's II-XII intact bilaterally, moves all extremities, no focal motor deficits and no sensory deficits noted Sensorium / Orientation: awake and alert Speech: speech normal Psych affect normal Assessment & Plan Assessment/Plan (1) Failed total left knee replacement: QUALIFIERS: Encounter type: sequela Qualified Code(s): T84.093S -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 Total clinical time spent by myself addressing the patient's medical issues, reviewing all of her data, and collaborating with patient's care team: 35 minutes Charges/Coding Visit Charges Inpatient E&M: 70472 Subs Hosp L2 05/12/25 1632 <Electronically signed by Lane Harden DO> Cosigner Signature (if applicable): CC: ~ Signed [facility] Work Phone: 1(654) 514-717506-14-2025 Progress note Author Bria Gan [facility] Note Date/Time May 12, 2025 9:33 am [facility] Medical Records Department [address] [place] [address] Progress Note - Orthopedic 05/12/25 0910 MR#: [id number] Acct: [id number] Name: EDSON COOK Rep #:[id number] : 1955 70 From: Bria Stephens PCP: Dr. Scott Mcdowell MD Status:ADM I N Location: [address] Subjective Subjective Patient up to chair recliner this morning. Does report more intense pain than after her total knee replacement done in October. Patient does require oxygen at night and with ambulation. This is likely due to her previous saddle embolusand residual issues. She was able to participate with physical therapy yesterday and walked 220 feet. Therapy had good report. Patient does have a desire to go to the transitional care unit postoperatively. Does have some concerns that when she takes pain medicines her blood pressure does decrease. Reports some twitching in her calf. Reports weakness with quad function. Was able to obtain 40 to 50 degrees flexion yesterday with therapy. Objective Data Objective Data Vital Signs: Vital Signs Temp Pulse Resp BP Pulse Ox O2 Del Method O2 Flow Rate 98.3 F 85 16 113/43 L 96 Nasal Cannula 2 05/12/25 08:00 05/12/25 08:00 05/12/25 08:00 05/12/25 08:02 05/12/25 08:00 05/12/25 08:03 05/12/25 08:03 Oxygen Flow Rate (L/min) 2 Oxygen Delivery Method Nasal Cannula Weight: 168 lb 10.458 oz Body Mass Index (BMI) 32.9 Intake & Output: Intake and Output for Last 24 Hours 05/10/25 05/11/25 05/12/25 23:59 23:59 23:59 Intake Total 3050 / 3050 1350 / 1350 250 / 250 Output Total 125 / 125 Balance 2925 / 2925 1350 / 1350 250 / 250 Lab / Micro Data Attestation: I reviewed the patient's lab results. 05/11/25 05:47 05/11/25 05:47 Micro: Microbiology 05/10/25 15:05 Tissue - Knee Gram Stain - Final 05/10/25 15:11 Tissue - Femoral Membrane Gram Stain - Final 05/10/25 15:09 Tissue - Tibial Membrane Gram Stain - Final Radiography Diagnostic Testing: Postoperative x-rays were reviewed. Stable total knee replacement revision femoral component. Physical Exam Narrative Left lower extremity: Dressing is clean dry and intact Sensations intact to light touch saphenous, sural, superficial peroneal, deep peroneal, and tibial distributions Motors intact EHL, DF, PF calves are soft and supple Patient does have difficulty with knee extension against gravity with pain and suspected quadriceps intubation. No excessive swelling or erythema is appreciated. Const alert, oriented x3 and no apparent distress Assessment & Plan Assessment/Plan (1) Failed total left knee replacement: QUALIFIERS: Encounter type: sequela Qualified Code(s): T84.093S -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 PLAN: 1. S/P revision left total knee replacement, entire femoral component POD#2 2. Pain Medications: Tylenol 1000 mg every 8 hours, Oxycontin BID scheduled andoxycodone as needed for pain control. Patient is not to take any anti- inflammatory medications while on her regular dose of Eliquis. Has had some decreased blood pressure with dose of COVID along as needed meds 3. DVT Prophylaxis: Patient is to resume her regular dose of Eliquis. 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 Patient will continue with ELLA hose for 2weeks postoperatively. SCDs while in house. If patient does go to do transitional care unit would recommend SCDs for the first 2 weeks. Most recent ultrasounds showed resolution of DVT. 4. PT/OT: Patient will be weightbearing as tolerated with her walker. Patient does not have outpatient physical therapy established as she is in hopes and thought she was going to transitional care unit. Current therapy recommendations are for discharge home. 5. H & H: Most recent 10.8/34.0, asymptomatic. Patient's vitals are stable andpatient is afebrile. Patient's hemoglobin is above the threshold of 10 at this point do not need to begin any ferrous sulfate or folic acid. Will recheck labstomorrow morning. Patient stable from yesterday. 6. Doxycycline: Patient will be on doxycycline for 2 weeks postoperatively due to nature of revision surgery. Patient was educated on the risk of sunburn while taking doxycycline. Patient was educated to take a probiotic while takingdoxycycline. Patient voiced understanding. 7. Microbiology: Gram stains x 3 without microorganism. Will continue to follow cultures. 8. Patient would like to go to the transitional care unit as she states her primary care provider stated that there would be a spot for her there following surgery. Have requested precertification from insurance awaiting results. Patient notes she will self-pay if she does not qualify for insurance standpointcost of been discussed the patient. This will likely take through the weekend as we are unlikely to have an insurance response on Wednesday or Wednesday. 9. Incentive spirometry: Patient was encouraged to use incentive spirometer every hour that they will be awake for the first week to decrease risk of postoperative lung infection and atelectasis. 10. Postoperative constipation: Will continue with senna 2 tablets twice daily until regular bowel movements. Patient was advised if not having a bowel movement after day 3 she is to contact orthopedics so appropriate change can be made. Patient states that she has had a bowel movement at this time. 11. Continue postoperative medical treatment per medicine 12. Patient did have positive Homans on examination yesterday. Doppler ultrasound was ordered to rule out blood clot due to previous history of DVT andpulmonary embolism. Doppler has not been yet completed. I did speak with nursing wood room supervisor we will call in the vascular team to complete this today. 13. Hypotension: Patient has slight amount of hypotension. Seems to have increased hypotension with dosing of narcotics. Continue with regular vitals encourage p.o. fluid intake. Appreciate medical input. 14. Disposition: Patient at this time is currently awaiting petition for insurance for coverage of transitional care unit. Due to the nature of revisionsurgery we will plan to watch cultures and microbiology for 48 hours, cultures have not yet returned likely return later today for initial results. Patient has progressive physical therapy was able to walk 220 feet yesterday. Patient does state that she is very painful and cannot imagine how anyone goes home following a surgery like this. Patient states that she was promised a spot in the TCU from her primary care provider. I did explain to the patient that this is not ensure that her insurance will approve treatment with a transitional careunit if she does not meet appropriate qualifications. Patient understands and does report willingness to pay privately. Case management is working on gettingprecertification from patient's insurance to go to [facility]. Patient was educated in order to get her knee bending she needs to better control her pain to work with physical therapy to avoid postoperative stiffness. Patient voiced understanding. Medicine and case management are involved in this case. Appreciate recommendations from medicine as well as casemanagement for safe and proper discharge. Patient will have follow-up with our office in 2 weeks for reevaluation. Staff is encouraged to call with any questions, concerns, new problems. 05/12/25 4063 <Electronically signed by Bria Gan MD> Cosigner Signature (if applicable): CC: ~ Signed [facility] Work Phone: 1(677) 457-813306-14-[address] [facility] 05-11-[address] Harden [facility] Note Date/Time May 11, 2025 5:45 pm [facility] Medical Records Department [address] [place] [address] Progress Note - Hospitalist 05/11/25 1736 MR#: [id number] Acct: [id number] Name: EDSON COOK Rep #:[id number] : 1955 70 From: Lane Harden DO PCP: Dr. 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 The orthopedic PA noticed swelling in the patient's left calf area and ordered a duplex study on the lower extremity. Patient however is on full anticoagulation due to a PE years earlier in the year (December 2024). Objective Data Objective Data Vital Signs: Vital Signs Temp Pulse Resp BP Pulse Ox O2 Del Method O2 Flow Rate 98.4 F 99 18 119/64 99 Nasal Cannula 2 05/11/25 14:20 05/11/25 14:20 05/11/25 14:20 05/11/25 14:20 05/11/25 14:20 05/11/25 14:20 05/11/25 14:20 Oxygen Flow Rate (L/min) 2 Oxygen Delivery Method Nasal Cannula Weight: 76.5 kg Body Mass Index (BMI) 32.9 Intake & Output: Intake and Output for Last 24 Hours 05/09/25 05/10/25 05/11/25 23:59 23:59 23:59 Intake Total 3050 / 3050 1050 / 1050 Output Total 125 / 125 Balance 2925 / 2925 1050 / 1050 Lab / Micro Data 05/11/25 05:47 05/11/25 05:47 Labs: Laboratory Results - last 24 hr 05/11/25 05:47: WBC 7.4, RBC 3.80 L, Hgb 10.8 L, Hct 34.0 L, MCV 89.5, MCH 28.4,MCHC 31.8 L, RDW Std Deviation 47.4 H, RDW Coeff of Xi 14.5, Plt Count 182, MPV10.8, Sodium 140, Potassium 3.7, Chloride 105, Carbon Dioxide 25.2, Anion Gap 9,BUN 9, Creatinine 0.49 L, Estim Creat Clear Calc 58.10, Est GFR (MDRD) Non-Af 100, BUN/Creatinine Ratio 18.1, Glucose 103 H, Calcium 8.9 Micro: Microbiology 05/10/25 15:05 Tissue - Knee Gram Stain - Final 05/10/25 15:11 Tissue - Femoral Membrane Gram Stain - Final 05/10/25 15:09 Tissue - Tibial Membrane Gram Stain - Final Radiography Diagnostic Testing: Radiology Impression Knee X-Ray 05/10/25 17:25 IMPRESSION: Status post left knee arthroplasty. Reading Location: [place] [address] Physical Exam Const alert, oriented x3, no apparent distress and healthy appearing General Appearance: cooperative, well kempt and well developed Orientation / Consciousness: awake, oriented to person, oriented to place and oriented to time HEENT normocephalic, head/scalp atraumatic, moist oral mucous membranes and oropharynxnormal Eyes PERRL, EOMs intact bilaterally and conjunctivae normal Neck supple, no JVD, thyroid normal and no carotid bruits General: trachea midline Resp normal respiratory effort, no retractions, no use of accessory muscles and clearto auscultation bilaterally Auscultation: Negative for rales, rhonchi or wheezes Cardio regular rate, regular rhythm, S1 normal heart sound, S2 normal heart sound, no murmurs, no rub and no gallops GI normal to inspection, nondistended, normoactive bowel sounds, soft to palpation,non-tender and non-distended Extremity no clubbing, cyanosis or edema Skin no rashes or lesions noted General Skin Exam: no breakdown Neuro oriented x3, CN's II-XII intact bilaterally, moves all extremities, no focal motor deficits and no sensory deficits noted Sensorium / Orientation: awake and alert Speech: speech normal Psych affect normal Assessment & Plan Assessment/Plan (1) Pulmonary hypertension: PLAN: Plan 1. 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-status post revision left total knee, entire femoral component-postop day #1 Total clinical time spent by myself addressing the patient's medical issues, reviewing all of her data, and collaborating with patient's care team: 35 minutes Charges/Coding Visit Charges Inpatient E&M: 94126 Subs Hosp L2 05/11/25 4525 <Electronically signed by Lane Harden DO> Cosigner Signature (if applicable): CC: ~ Signed [facility] Work Phone: 1(675) 588-760806-13-2025 Progress note Author Kasey Nunez [facility] Note Date/Time May 11, 2025 4:06 pm [facility] Medical Records Department [address] [place] [address] Progress Note - Orthopedic 05/11/25 1548 MR#: [id number] Acct: [id number] Name: EDSON COOK Rep #:[id number] : 1955 70 From: Kasey ROSARIO PCP: Dr. Scott Mcdowell MD Status:ADM I N Location: [facility] [id number] Subjective Subjective Patient is sitting uncomfortably in bedside chair. Patient is very tearful during examination. Patient states that she is in a lot of pain. Patient states that she was not expecting her pain to be this much worse than the original knee replacement. Patient states that she is regularly asking for painmedication but does not like taking it. Patient was educated that she works with physical therapy but states she does not know how anyone goes home and feels that she cannot even get in a car or go to the bathroom. Patient states that she is really hoping she can go to TCU as she was told there would be a spot for her in TCU. Patient denies any new numbness or tingling. Patient denies any nausea vomiting or dizziness. Patient denies any fevers, chills, signs of infection. Patient denies any shortness of breath, chest pain, calf pain. Objective Data Objective Data Vital Signs: Vital Signs Temp Pulse Resp BP Pulse Ox O2 Del Method O2 Flow Rate 98.4 F 99 18 119/64 99 Nasal Cannula 2 05/11/25 14:20 05/11/25 14:20 05/11/25 14:20 05/11/25 14:20 05/11/25 14:20 05/11/25 14:20 05/11/25 14:20 Oxygen Flow Rate (L/min) 2 Oxygen Delivery Method Nasal Cannula Weight: 76.5 kg Body Mass Index (BMI) 32.9 Intake & Output: Intake and Output for Last 24 Hours 05/09/25 05/10/25 05/11/25 23:59 23:59 23:59 Intake Total 3050 / 3050 1050 / 1050 Output Total 125 / 125 Balance 2925 / 2925 1050 / 1050 Lab / Micro Data 05/11/25 05:47 05/11/25 05:47 Labs: Laboratory Results - last 24 hr 05/11/25 05:47: WBC 7.4, RBC 3.80 L, Hgb 10.8 L, Hct 34.0 L, MCV 89.5, MCH 28.4,MCHC 31.8 L, RDW Std Deviation 47.4 H, RDW Coeff of Xi 14.5, Plt Count 182, MPV10.8, Sodium 140, Potassium 3.7, Chloride 105, Carbon Dioxide 25.2, Anion Gap 9,BUN 9, Creatinine 0.49 L, Estim Creat Clear Calc 58.10, Est GFR (MDRD) Non-Af 100, BUN/Creatinine Ratio 18.1, Glucose 103 H, Calcium 8.9 Micro: Microbiology 05/10/25 15:05 Tissue - Knee Gram Stain - Final 05/10/25 15:11 Tissue - Femoral Membrane Gram Stain - Final 05/10/25 15:09 Tissue - Tibial Membrane Gram Stain - Final Radiography Diagnostic Testing: Radiology Impression Knee X-Ray 05/10/25 17:25 IMPRESSION: Status post left knee arthroplasty. Reading Location: [place] [address] Physical Exam Narrative Vital signs stable and afebrile. SCDs and ELLA hose are in place bilaterally Knee immobilizer in place Patient is able to plantarflex and dorsiflex actively. Sensation intact to light touch. Neurovascular intact overall. Dressing is clean dry and intact. Positive Homans left side. Negative Homans right Const alert, oriented x3 and no apparent distress Assessment & Plan Assessment/Plan (1) Failed total left knee replacement: QUALIFIERS: Encounter type: sequela Qualified Code(s): T84.093S -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 PLAN: 1. S/P revision left total knee replacement, entire femoral component POD#1 2. Pain Medications: Tylenol 1000 mg every 8 hours, and oxycodone as needed forpain control. Patient is not to take any anti-inflammatory medications while onher regular dose of Eliquis. 3. DVT Prophylaxis: Patient is to resume her regular dose of Eliquis. 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 Patient will continue with ELLA hose for 2weeks postoperatively. 4. PT/OT: Patient will be weightbearing as tolerated with her walker. Patient does not have outpatient physical therapy established as she is in hopes and thought she was going to transitional care unit. 5. H & H: 10.8/34.0, asymptomatic. Patient's vitals are stable and patient is afebrile. Patient's hemoglobin is above the threshold of 10 at this point do not need to begin any ferrous sulfate or folic acid. 6. Doxycycline: Patient will be on doxycycline for 2 weeks postoperatively due to nature of revision surgery. Patient was educated on the risk of sunburn while taking doxycycline. Patient was educated to take a probiotic while takingdoxycycline. Patient voiced understanding. 7. Microbiology: All microbiology is still pending at this point. Will continue to monitor and review. 8. Patient would like to go to the transitional care unit as she states her primary care provider stated that there would be a spot for her there following surgery. 9. Incentive spirometry: Patient was encouraged to use incentive spirometer every hour that they will be awake for the first week to decrease risk of postoperative lung infection. 10. Postoperative constipation: Will continue with senna 2 tablets twice daily until first bowel movement. Patient was advised if not having a bowel movement after day 3 she is to contact orthopedics so appropriate change can be made. Patient states that she has had a bowel movement at this time. 11. Continue postoperative medical treatment per medicine 12. Patient did have positive Homans on examination today. Doppler ultrasound was ordered to rule out blood clot due to previous history of DVT and pulmonary embolism. 13. Disposition: Patient at this time is currently not ready for discharge. Due to the nature of revision surgery we will plan to watch cultures and microbiology for 48 hours. At this time patient does state that she is very painful and cannot imagine how anyone goes home following a surgery like this. Patient states that she was promised a spot in the TCU from her primary care provider. Case management is working on getting acceptance and precertificationfrom patient's insurance to go to [facility]. Patient was educated that we cannot promise there will be a spot available for her in the TCU at this time. Patient will continue to work with physical therapy and be weightbearing as tolerated with a walker. Patient was encouraged that she needsto stay on top of her pain and take medication if she needs it. Patient was educated in order to get her knee bending she needs to better control her pain to work with physical therapy to avoid postoperative stiffness. Patient voiced understanding. Medicine and case management are involved in this case. Appreciate recommendations from medicine as well as case management for safe andproper discharge. Patient will have follow-up with our office in 2 weeks for reevaluation. Patient was encouraged to call with any questions, concerns, new problems. 05/11/25 1606 <Electronically signed by Kasey ROSARIO> Cosigner Signature (if applicable): CC: ~ Signed [facility] Work Phone: 1(668) 217-697906-12-2025 Consult note Author Richard Mo [facility] Note Date/Time May 10, 2025 5:53 pm [facility] Medical Records Department [address] [place] [address] Anesthesia Postop Eval II 05/10/25 1752 MR#: [id number] Acct: [id number] Name: EDSON COOK Rep #:[id number] : 1955 70 From: Richard Mo MD PCP: Dr. Scott Mcdowell MD Status:ADM I N Y Race: C Location: [facility] [id number] -[id number] Anesthesia Postop Eval I Sum Postop Eval Completion status Anesthesia document: Postop Eval 1 completed: Yes Anesthesia Postop Eval I Summary Anesthesia Postop Eval I Summary: Anesthesia Postop Eval I: Assessment Summary Airway patent Yes 05/10/25 17:18 Spontaneous unlabored Yes 05/10/25 17:18 respirations Mental status Awake 05/10/25 17:18 nausea No 05/10/25 17:18 Vomiting No 05/10/25 17:18 Anesthesia Postop Eval I: Fluid Summary Crystalloid volume administer 500 05/10/25 17:18 (ml) Colloids volume administered ( ml) Blood Product volume administered (ml) Total IV fluid infused 500 05/10/25 17:18 Anesthesia Postop Eval I: Summary Notes Anesthesia Complication No 05/10/25 17:18 Anesthesia Complication Comment: Post-operative progress note Anesthesia: Postop Eval II Evaluation Mental status: Awake Pain Level: 2 nausea: No Vomiting: No 05/10/25 4272 <Electronically signed by Richard Mo MD > Date _ Richard Mo MD Cosigner Signature: Date CC: ~ Signed [facility] Work Phone: 1(723) 948-639606-12-2025 Consult note Author Richard Mo [facility] Note Date/Time May 10, 2025 5:18 pm [facility] Medical Records Department [address] [place] [address] Anesthesia Postop Eval I 05/10/25 1717 MR#: [id number] Acct: [id number] Name: EDSON COOK Rep #:[id number] : 1955 70 From: Richard Mo MD PCP: Dr. Scott Mcdowell MD Status:ADM I N Y Race: C Location: [place] [address] Anesthesia: Postop Eval I Current Vital Signs Temperature: 97 F Pulse Rate: 90 Blood Pressure: 106/51 Respiratory Rate: 16 Pulse Ox: 97 Oxygen Delivery Method: Room Air Assessment Airway patent: Yes Spontaneous unlabored respirations: Yes Mental status: Awake nausea: No Vomiting: No Anesthesia Complication: No Fluid Hydration Crystalloid volume administer (ml): 500 Total IV fluid infused: 500 Progress Note Anesthesia document: Postop Eval 1 completed: Yes 05/10/25 0174 <Electronically signed by Richard Mo MD > Date _ [facility] Date CC: ~ Signed [facility] Work Phone: 1(459) 280-280006-12-[address] [facility]06-12-2025 Consult note Author Richard Mo [facility] Note Date/Time May 10, 2025 11:4 5am [facility] Medical Records Department [address] [place] [address] Pre-Anesthesia Evaluation 05/10/25 1134 MR#: [id number] Acct: [id number] Name: EDSON COOK Rep #:[id number] : 1955 70 From: Richard Mo MD PCP: Dr. Scott Mcdowell MD Status:ADM I N Y Race: C Location: [place] [address] ASA Classification* ASA Classification ASA Classification: 3 Assessment & Plan Anesthesia* Anesthesia Assessment Anesthesia Assessment: Discussed sedation and/or anesthesia options, risks, benefits, and alternatives with patient/parents/legal guardian/POA. Questions invited. The patient/parents/legal guardian/POA seems to understand and agrees to proceedwith anesthesia plan. Reviewed the physical assessment, medical history, allergy history and patient home medications list prior to surgery/procedure/anesthetic and documented any changes. Performed airway and anesthesia risk assessments. Anesthesia Type Anesthesia Type: Spinal (last lovenox over 30 hours ago) and Block Anesthesia Focused Assessment* Airway Assessment Mouth opens: >3 cm Mallampati Score: II Labs Anesthesia Preop lab: CBC WBC 8.5 K/mm3 (4.4-11.0) 04/16/25 17:09 04/16/25 RBC 4.63 M/mm3 (4.2-5.4) 04/16/25 17:09 04/16/25 Hgb 13.2 g/dL (12.0-15.0) 04/16/25 17:09 04/16/25 Hct 41.3 % (37-47) 04/16/25 17:04/16/25 Plt Count 277 K/mm3 (150-450) 04/16/25 17:09 04/16/25 CHEMISTRY Potassium 4.7 mmol/L (3.3-5.1) 04/16/25 17:09 04/16/25 Sodium 141 mmol/L (133-145) 04/16/25 17:09 04/16/25 Magnesium 2.3 mg/dL (1.5-2.2) H 04/17/25 17:09 04/17/25 Phosphorus 2.2 mg/dL (2.7-4.5) L 01/25/25 07:36 01/25/25 BUN 18 mg/dL (4-19) 04/16/25 17:09 04/16/25 Creatinine 0.65 mg/dL (0.70-1.20) L 04/16/25 17:09 Glucose 108 mg/dL (70-99) H 04/16/25 17:09 04/16/25 TSH 1.020 uIU/mL (0.300-4.200) 02/12/25 16:03 01/27 06/22 COAG PT 12.2 SECONDS (11.7-14.9) 04/16/25 17: Pre-Assessment Diagnosis/Proposed Procedure Planned Operative Procedure(s): LEFT TOTAL KNEE FEMORAL COMPONENT REVISION Anesthesia History 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 When Was Last Pacemaker Check QUESTION #4 FULL TEXT: You/Your Family Experience fever (hyperthermia) with Anesthesia Last Oral Intake Last Oral intake: Last Oral Intake NPO since Meds taken in AM with sips of water? Meds patient instructed to take am of surgery PONV PONV - poultry breeder: PONV - poultry breeder Female Yes 04/16/25 10:16 HX of Motion Sickness No 04/16/25 10:16 HX of N/V After Surgery No 04/16/25 10:16 Non-Smoker Yes 04/16/25 10:16 Duration of Surgery greater Yes 04/16/25 10:16 than 60 minutes Number of Risk Factors 3 04/16/25 10:16 PONV Score Moderate Risk 04/16/25 10:16 Height & Weight Height & Weight: Anesthesia: Height & Weight Height 5 ft 05/09/25 09:18 Weight: 73.482 kg 05/09/25 09:18 Respiratory Assessment Respiratory Assessment - poultry breeder: Respiratory Tract Infection Hx - poultry breeder Hx Respiratory Tract Infection No 04/16/25 10:16 STOP Sleep Apnea STOP Sleep Apnea - poultry breeder: STOP Sleep Apnea - poultry breeder Hx Hypertension No 04/16/25 10:16 Hx Sleep Apnea No 04/16/25 10:16 CPAP BIPAP Do you snore loudly (louder No 04/16/25 10:16 than talking or can be heard Do you often feel tired/ No 04/16/25 10:16 fatigued/ sleepy during daytime? Has anyone observed you stop No 04/16/25 10:16 breathing during sleep? STOP Results Negative 04/16/25 10:16 QUESTION #5 FULL TEXT : Do you snore loudly (louder than talking or can be heard through closed doors)? Tobacco Use History Tobacco Use History - poultry breeder: Tobacco Use History - poultry breeder Tobacco Use Smoking Status Never smoker 04/16/25 10:16 Hx Tobacco Use No 04/16/25 10:16 Years Smoking Packs Smoked per Day Smoking Cessation Date was within the last 15 years Hx Smoking Cessation Date Hx Smoking Cessation Counseling Hematologic Medial History Hematologic Hx - poultry breeder: Hematologic Medical Hx - documentation liaison Hx of Blood Transfusion No 04/16/25 10:16 Hx of Transfusion in last 3 No 04/16/25 10:16 Months Date of Last Transfusion (if within last 3 months) Ever experience any problems No 04/16/25 10:16 with transfusion(s)? Specify any problems Hx of Preganancy in last 3 No 04/16/25 10:16 Months Nurse Filling Out Transfusion DSCHRIBER 04/16/25 10:16 & Questions: Date: 04/16/25 04/16/25 10:16 Time: 10:21 04/16/25 10:16 Patient unable to answer at this time (ie. confused, unrespo /Reproduction History /Reproductive History - poultry breeder: /Reproductive Hx- poultry breeder Hx Now No 04/16/25 10:16 Gestational Age (in weeks): EDC: Hx Hx Para Hx Section SAB No 04/16/25 10:16 Active Medications Active Medications: Current Medications Generic Name Dose Route Start Last Admin Trade Name Freq PRN Reason Stop Dose Admin Acetaminophen 1,000 mg 05/10/25 12:30 Acetaminophen 500 Mg Tablet PO 05/10/25 12:31 PREOP ONE Sodium Chloride 77.4 ml/ 0 ml 05/10/25 12:30 Ropivacaine 200 mg/ OPERA.SITE 05/10/25 12:31 Epinephrine HCl 0.6 mg/ INTRAOP ONE Ketorolac Tromethamine 30 mg/ Morphine Sulfate 5 mg Dexamethasone Sodium Phosphate 10 mg 05/10/25 12:30 Dexamethasone 10 Mg/Ml Vial IV 05/10/25 12:31 INTRAOP ONE Gabapentin 600 mg 05/10/25 12:30 Gabapentin 600 Mg Tablet PO 05/10/25 12:31 PREOP ONE Lactated Ringer's 1,000 mls @ 999 mls/hr 05/10/25 12:30 IV 05/10/25 13:30 .Q1H1M GABBI Cefazolin Sodium 2 gm/ Sodium 110 mls @ 150 mls/hr 05/10/25 12:30 Chloride IV 05/10/25 13:13 INTRAOP ONE Tranexamic Acid 2,000 mg/ 120 mls @ 280 mls/hr 05/10/25 12:30 Sodium Chloride IV 05/10/25 12:55 INTRAOP ONE Lactated Ringer's 1,000 mls @ 999 mls/hr 05/10/25 12:30 IV 05/10/25 13:30 .Q1H1M GABBI Lactated Ringer's 1,000 mls @ 125 mls/hr 05/10/25 12:30 IV 05/10/25 20:29 .Q8H GABBI Magnesium Sulfate 1 gm/ 102 mls @ 408 mls/hr 05/10/25 12:30 Dextrose IV 05/10/25 12:44 INTRAOP ONE Insulin Human Lispro 1 - 6 unit 05/10/25 12:30 Insulin Lispro 100 Unit/Ml Insuln.Pen SC Q4H PRN PRN BG>/= 180, SEE PROTOCOL Protocol PFSH Medical History Wears contact lenses Post-menopausal Walker as ambulation aid Blackout Non-smoker On home oxygen therapy Shortness of breath on exertion History of pain when walking History of edema History of echocardiogram Failed total left knee replacement Osteoarthritis of left knee Pulmonary fibrosis Right leg DVT Saddle pulmonary embolus Acute respiratory failure with hypoxia Debility Home Medications ?Medication ?Instructions ?Recorded ?Last Taken ?Type apixaban 5 mg tablet (Eliquis) 5 mg PO BID BLOOD THINN ER 30 days 02/06/25 05/03/25 Rx #60 tabs gabapentin 100 mg capsule 200 mg (2 x 100 mg) PO TIDCM NERVE 02/06/25 05/09/25 Rx PAIN 30 days #180 caps albuterol sulfate 90 mcg/actuation 2 inh inhalation Q4 H PRN shortness 04/02/25 Unknown Rx aerosol inhaler (Ventolin HFA) of breath or wheezing # 18 grams ascorbic acid (vitamin C) 100 mg 600 mg PO DAILY SUPPL EMENT 04/16/25 05/05/25 History tablet (Vitamin C) baclofen 10 mg tablet 10 mg PO QHS Muscle Spasm 05/09/25 History tramadol 50 mg tablet 50 mg PO QHS PRN Pain Score 4-5 Or 04/16/25 05/09/25 History Pre Pt/Ot vitamin D3 125 mcg (5,000 1 cap PO DAILY SUPPLEMENT 05/05/25 History unit)-vitamin K2 100 mcg capsule enoxaparin 80 mg/0.8 mL 80 mg subcut Q12H saddle dvt 05/10/25 05/09/25 09:00 History subcutaneous syringe Allergy/AdvReac Type Severity Reaction Status Date / Time No Known Allergies Allergy Verified 05/10/25 11:25 Surgical History Hx of tubal ligation History of appendectomy Total knee replacement status Social History household members: spouse Smoking Status: Never smoker alcohol intake: never substance use type: does not use Review of Systems (Anesthesia) ROS Narrative System reviewed and no additional complaints, except as documented. 05/10/25 1145 <Electronically signed by Richard Mo MD > Date _ Richard Mo MD Cosigner Signature: Date CC: ~ Signed [facility] Work Phone: 1(189) 760-556705-06-2025 Radiology Diagnostic study note [facility] Imaging Services [address] [place] [address] [id number] Hand Min 3 Views MR#: [id number] Acct: [id number] Name: EDSON COOK Rep #: [id number] : 1955 F 70 From: Hector Reynolds MD PCP: Dr. Scott Mcdowell MD Status: LYRIC WALKER Study:Hand Min 3 Views Date of Exam: 04/22 Exam# [id number] Ordering Dr: RA CHUCK JENKINS MD PROCEDURE: HAND MIN 3 VIEWS 04/02/2025 REASON FOR EXAM: PAIN IN OTHER SPECIFIED JOINT TECHNIQUE: 3 view(s) of the left hand FINDINGS: No fracture or dislocation. The joint spaces appear within limits. No erosive change identified. RAD/Hand Min 3 Views IMPRESSION: Study appears within limits. Reading Location: [facility] CC: Dr. Scott Mcdowell MD; FIGUEROA JENKINS MD ~ Mat Machine Tender: Signed [facility]05-06-2025 Radiology Diagnostic study note [facility] Imaging Services [address] [place], [place] [id number] [phone] Min 3 Views MR#: [id number] Acct: [id number] Name: EDSON COOK Rep #: [id number] : 1955 F 70 From: Hector Reynolds MD PCP: Dr. Scott Mcdowell MD Status: REG C DENISE Study:Hand Min 3 Views Date of Exam: 04/22 Exam# [id number] Ordering Dr: RA CHUCK JENKINS MD PROCEDURE: HAND MIN 3 VIEWS 04/02/2025 REASON FOR EXAM: PAIN IN OTHER SPECIFIED JOINT TECHNIQUE: 3 view(s) of the right hand FINDINGS: No fracture or dislocation. The joint spaces appear within limits. No erosive change identified. RAD/Hand Min 3 Views IMPRESSION: Study appears within limits. Reading Location: [facility] CC: Dr. Scott Mcdowell MD; FIGUEROA JENKINS MD ~ Mat Machine Tender: Signed [facility]05-06-2025 Radiology Diagnostic study note [facility] Imaging Services [address], [place] [id number] Wrist min 3 Views MR#: [id number] Acct: [id number] Name: EDSON COOK Rep #: [id number] : 1955 F 70 From: Hector Reynolds MD PCP: Dr. Scott Mcdowell MD Status: REG C DENISE Study:Wrist min 3 Views Date of Exam: Exam# [id number] Ordering Dr: RA CHUCK JENKINS MD EXAM: DX wrist minimum three views CLINICAL HISTORY: Pain and other specified joint TECHNIQUE: Three views right wrist FINDINGS: No fracture or dislocation. The joint spaces appear within limits. No erosive change identified. RAD/Wrist min 3 Views IMPRESSION: Study appears within limits. Reading Location: [facility] CC: Dr. Scott Mcdowell MD; FIGUEROA JENKINS MD ~ Mat Machine Tender: Signed [facility]05-06-2025 Radiology Diagnostic study note [facility] Imaging Services [address] [place] [address] Wrist min 3 Views MR#: [id number] Acct: [id number] Name: EDSON COOK Rep #: [id number] : 1955 F 70 From: Hector Reynolds MD PCP: Dr. Scott Mcdowell MD Status: REG C Study:Wrist min 3 Views Date of Exam: Exam# [id number] Ordering Dr: RA CHUCK JENKINS MD EXAM: DX wrist minimum three views CLINICAL HISTORY: Pain in other specified joint TECHNIQUE: Three views left wrist FINDINGS: No acute fracture or dislocation. The joint spaces appear within limits. No erosive changes identified. RAD/Wrist min 3 Views IMPRESSION: Study appears within limits. Reading Location: [facility] CC: Dr. Scott Mcdowell MD; FIGUEROA JENKINS MD ~ Mat Machine Tender: Signed [facility]05-05-2025 Evaluation note* Diagnosis Onset Date Resolution Status Admit Date Chronic hypoxic respiratory failure chronic April 02, 2025 10 :32am Pulmonary hypertension chronic Ma y 2024 10:32am Rheumatoid factor positive chronic April 02, 2025 10:32am Saddle pulmonary embolus chronic April 02, 2025 10:32am Pulmonary fibrosis suspected March 10:32am Failed total left knee replacement inactive April 02, 2025 10 :32am Chronic hypoxic respiratory failure chronic May 10, 2025 4:26pm Pulmonary hypertension chronic Ju 2024 4:26pm Failed total left knee replacement inactive May 10, 2025 4:26pm Debility acute May 14 3:04pm Postoperative anemia acute May 14, 2025 3:04pm Pulmonary embolism acute April 292024 3:04pm Chronic hypoxic respiratory failure chronic May 14, 2025 3:04pm Pulmonary fibrosis suspected April 292024 3:04pm Failed total left knee replacement inactive May 14, 2025 3:04pm [facility] Work Phone: 1(813) 242-993703-14-2025 Discharge summary Author Scott Mcdowell [facility] Note Date/Time February 09, 2025 1:5 9pm [facility] Medical Records Department [address] [place] [address] Discharge Summary 02/06/251944 MR#: [id number] Acct: [id number] Name: EDSON COOK Rep #:[id number] : 1955 69 From: Scott Mcdowell MD PCP: CHERRY Allen Status:ADM IN Location: [place] [address] Providers Date of Admission: 01/26/25 Primary Care Physician: CHERRY Allen Reason For Visit: SADDLE PE Diagnosis Discharge Diagnosis (1) Debility: Status: Acute Code(s): R53.81 - Other malaise (2) Acute respiratory failure with hypoxia: Status: Acute Code(s): J96.01 - Acute respiratory failure with hypoxia (3) Saddle pulmonary embolus: Status: Acute Code(s): I26.92 - Saddle embolus of pulmonary artery without acute cor pulmonale (4) Right leg DVT: Status: Acute Code(s): I82.401 - Acute embolism and thrombosis of unspecified deep veins of right lowerextremity (5) Pulmonary fibrosis: Status: Acute Code(s): J84.10 - Pulmonary fibrosis, unspecified (6) Osteoarthritis of left knee: Status: Acute Code(s): M17.12 - Unilateral primary osteoarthritis, left knee (7) Failed total left knee replacement: Status: Acute Code(s): T84.093A - Other 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, initial encounter Plan 69 year old female with below past medical history hospitalized for acute respiratory failure with hypoxia 2/2 saddle pulmonary embolism (thrombectomy notrecommended), complicated by right lower extremity dvt, pulmonary fibrosis, lefttotal knee replacement failure, admitted to TCU with debility, here for rehabilitation, strengthening, prior to discharge home with . * Debility - PT/OT. * Pain - Tylenol 1000mg q6 prn pain (1-3), Tramadol 50mg q6 prn pain (4-5), Oxycodone 5mg q4 prn pain (6-10). * Bowel - senna/colace 2 tablets bid, Magnesium citrate 300mL po daily prn * Adult immunization - Administer pneumonia vaccine, covid vaccine, flu vaccine as appropriate. * DVT prophylaxis - Eliquis. * Osteoarthritis - Meloxicam 7.5mg bid, monitor for signs and symptoms of bleeding. * Saddle pulmonary embolism - Eliquis 10mg bid x 7 days, then Eliquis 5mg bid thru 07/23/2025. * Right lower extremity dvt - Eliquis 10mg bid x 7 dyas, then Eliquis 5mg bid thru 07/23/2025. * Pulmonary fibrosis - Bloodwork evaluation pending, f/u Dr. Allred as outpatient. She has had shortness of breath with exertion for 4 years, limiting her ability to [place], she has 12 acres she likes to care for, and walking up a hill has been unable for 4 years, this is prior to pulmonary embolism. * Left total knee replacement failure - schedule revision left total knee replacement femoral component with Dr. Gan once off anticoagulation. * Rash - Vitamin E topical bid. Medications at Discharge Home Medications apixaban 5 mg tablet (Eliquis) 5 mg PO BID 30 days #60 tabs 02/06/25 baclofen 10 mg tablet 10 mg PO TID PRN PRN Muscle Spasm 30 days #90 tabs 02/06/25 gabapentin 100 mg capsule 200 mg (2 x 100 mg) PO QHS 30 days #60 caps 02/06/25 gabapentin 100 mg capsule 200 mg (2 x 100 mg) PO TIDCM 30 days #180 caps 02/06/25 tramadol 50 mg tablet 50 mg PO Q6H PRN PRN Pain Score 4-5 Or Pre Pt/Ot 7 days #28 tabs 02/06/25 Hospital Course Operations None Procedures None Summary of Care Provided Minutes Spent on Discharge: 35 Hospital Course: 69 year old female with below past medical history hospitalized for acute respiratory failure with hypoxia 2/2 saddle pulmonary embolism (thrombectomy notrecommended), complicated by right lower extremity dvt, pulmonary fibrosis, lefttotal knee replacement failure, admitted to TCU with debility, here for rehabilitation, strengthening, prior to discharge home with . 02/06/2025 Left knee swelling, order Doppler ultrasound left lower extremity to evaluate for dvt. Discharge home with 02/09/2025, pending appeal, [facility] PT/OT/SN, Oxygen. Oxygen: Patient requires 2 LPM of oxygen via nasal cannula d/t saddle pulmonaryembolism, pulmonary fibrosis; requires a concentrator and portable O2 tanks to allow patient to be mobile in the home and the community; O2 will improve the patient condition in the home setting. Physical Exam Const alert General Appearance: cooperative HEENT normocephalic Eyes PERRL and EOMs intact bilaterally Neck supple, no JVD and no carotid bruits Resp normal respiratory effort, normal air movement and clear to auscultation bilaterally Cardio regular rate and regular rhythm GI normal to inspection, nondistended, normoactive bowel sounds, non-tender and non-distended Extremity normal capillary refill General Extremity: Negative for edema Skin no rashes or lesions noted General Skin Exam: no breakdown Psych affect normal Appearance: appropriate Weight / BMI Weight Weight: 70.789 kg Body Mass Index (BMI) 30.4 ABG / Lab / Microbiology Data 02/02/25 05:13 02/02/25 05:13 D/C Instructions Discharge Diet: No restrictions Discharge Activity: Return to Normal Activity, May Shower and Use Walker Weight Bearing Status: Weight bearing as tolerated Call your doctor if you observe: Fever of 101 or Higher, Inability to urinate, Inability to have a bowel movement, Shortness of breath, Dizziness, Fainting spells, Swelling in the ankles, Chest pain and Uncontrolled pain DC O2, CPAP, BIPAP Needs PSN CPAP & BiPAP: BiPAP & CPAP Settings per PSN Fraction of Inspired Oxygen ( 96 02/02/25 22:11 FIO2) Home O2 Discharge instructions: Yes Type of respiratory needs?: Oxygen Oxygen frequency: Continuous Continuous oxygen liters per minute: 2 DC home with Oxygen: Yes Home O2 MD Review: I have reviewed the oxygen testing, and the patient qualifies for home oxygen equipment and portability. The patient is mobile in the home and the community. Please Follow Up With: Cindy Guerrier NP When: 02/12/2025. Meaningful Use Info Meaningful Use Meaningful Use Diagnoses (Choose all that apply): None applicable Ischemic Stroke Statin Dosing Therapy Reference: STATIN DOSE THERAPY REFERENCE: * Patients > 75 years receive moderate or high dose statin therapy. * Patients 75 years or YOUNGER should receive HIGH intensity statin dose unless contraindicated. You will be required to document reason for non-treatment if statin daily dose does not meet guidelines. HIGH DOSE STATIN THERAPY DAILY Atorvastatin > than or = to 40 mg Rosuvastatin > than or = to 20 mg Amlodipine + Atorvastatin > than or = to 2.5/40 mg Ezetimibe + Simvastatin 10/80 mg Simvastatin 80mg Discharge Plan Admission Admit Date/Time: 01/26/25 14:40 Primary Reason for Your Visit: Debility. Attending Provider: Scott Mcdowell Chi Primary Care Provider: Lori Dale Instructions Additional Instructions / Restrictions: Discharge home with 02/09/2025, pending appeal, [facility] PT/OT/SN, Oxygen. Oxygen: Patient requires 2 LPM of oxygen via nasal cannula d/t saddle pulmonaryembolism, pulmonary fibrosis; requires a concentrator and portable O2 tanks to allow patient to be mobile in the home and the community; O2 will improve the patient condition in the home setting. Discharge Orders/Prescriptions Prescriptions: New tramadol 50 mg Tablet 50 mg PO Q6H PRN PRN (Reason: Pain Score 4-5 Or Pre Pt/Ot) 7 Days Qty: 28 0RF baclofen 10 mg Tablet 10 mg PO TID PRN PRN (Reason: Muscle Spasm) 30 Days Qty: 90 0RF gabapentin 100 mg Capsule 200 mg PO QHS 30 Days Qty: 60 0RF gabapentin 100 mg Capsule 200 mg PO TIDCM 30 Days Qty: 180 0RF Eliquis 5 mg Tablet 5 mg PO BID 30 Days Qty: 60 0RF Discontinued oxycodone 5 mg tablet 5 mg PO Q4H PRN (Reason: pain) Patient Comments: TAKES 5MG TID meloxicam 7.5 mg tablet 7.5 mg PO BID Patient Comments: PT STATES SHE HASN'T TAKEN THIS IN A FEW DAYS vitamin E Oil 1 applic topical DAILY sennosides [senna] 8.6 mg tablet 17.2 mg PO DAILY PRN (Reason: constipation) Eliquis 5 mg Tablet 10 mg PO BID Qty: 0 0RF Rx Instructions: Last day for this dose is 02/01/2020 5 in the PM Eliquis 5 mg Tablet 5 mg PO BID Qty: 0 0RF Rx Instructions: To start on 02/01/2025 oxycodone 5 mg tablet 5 mg PO Q4H PRN (Reason: pain) 2 Days Qty: 12 0RF Referrals / Follow Up: Scott Mcdowell Chi, MD [Med Staff - Active Staff] - Within 1 Week (New patient appointment/TCU TCM) Disposition Disposition (needs filled in before D/C Order can be placed): Home Health Service 02/06/251954 <Electronically signed by Scott Mcodwell MD> Cosigner Signature (if applicable): CC: CHERRY Dale; Dr. Scott Mcdowell MD~ Signed ADDENDUM by Dr. Scott Mcdowell MD on 02/09/25 at 1359 Addendum Discharge home with 02/10/2025, pending appeal, [facility] PT/OT/SN, Oxygen. 02/09/25 1359<Electronically signed by Scott Mcdowell MD> Cosigner Signature (if applicable): cc: CHERRY Dale; Dr. Scott Mcdowell MD ~* Signed [facility] Work Phone: 1(301) 904-521103-14-2025 Discharge summary [facility] Medical Records Department [address] [place] [address] Discharge Summary 02/06/251944 MR#: [id number] Acct: [id number] Name: EDSON COOK Rep #:[id number] : 1955 69 From: Scott Mcdowell MD PCP: CHERRY Allen Status:ADM IN Location: [facility] [id number] Providers Date of Admission: 01/26/25 Primary Care Physician: CHERRY Allen Reason For Visit: SADDLE PE Diagnosis Discharge Diagnosis (1) Debility: Status: Acute Code(s): R53.81 - Other malaise (2) Acute respiratory failure with hypoxia: Status: Acute Code(s): J96.01 - Acute respiratory failure with hypoxia (3) Saddle pulmonary embolus: Status: Acute Code(s): I26.92 - Saddle embolus of pulmonary artery without acute cor pulmonale (4) Right leg DVT: Status: Acute Code(s): I82.401 - Acute embolism and thrombosis of unspecified deep veins of right lowerextremity (5) Pulmonary fibrosis: Status: Acute Code(s): J84.10 - Pulmonary fibrosis, unspecified (6) Osteoarthritis of left knee: Status: Acute Code(s): M17.12 - Unilateral primary osteoarthritis, left knee (7) Failed total left knee replacement: Status: Acute Code(s): T84.093A - Other 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, initial encounter Plan 69 year old female with below past medical history hospitalized for acute respiratory failure with hypoxia 2/2 saddle pulmonary embolism (thrombectomy notrecommended), complicated by right lower extremity dvt, pulmonary fibrosis, lefttotal knee replacement failure, admitted to TCU with debility, here for rehabilitation, strengthening, prior to discharge home with . * Debility - PT/OT. * Pain - Tylenol 1000mg q6 prn pain (1-3), Tramadol 50mg q6 prn pain (4-5), Oxycodone 5mg q4 prn pain (6-10). * Bowel - senna/colace 2 tablets bid, Magnesium citrate 300mL po daily prn * Adult immunization - Administer pneumonia vaccine, covid vaccine, flu vaccine as appropriate. * DVT prophylaxis - Eliquis. * Osteoarthritis - Meloxicam 7.5mg bid, monitor for signs and symptoms of bleeding. * Saddle pulmonary embolism - Eliquis 10mg bid x 7 days, then Eliquis 5mg bid thru 07/23/2025. * Right lower extremity dvt - Eliquis 10mg bid x 7 dyas, then Eliquis 5mg bid thru 07/23/2025. * Pulmonary fibrosis - Bloodwork evaluation pending, f/u Dr. Allred as outpatient. She has had shortness of breath with exertion for 4 years, limiting her ability to [place], she has 12 acres she likes to care [place], and walking up a hill has been unable for 4 years, this is prior to pulmonary embolism. * Left total knee replacement failure - schedule revision left total knee replacement femoral component with Dr. Gan once off anticoagulation. * Rash - Vitamin E topical bid. Medications at Discharge Home Medications apixaban 5 mg tablet (Eliquis) 5 mg PO BID 30 days #60 tabs 02/06/25 baclofen 10 mg tablet 10 mg PO TID PRN PRN Muscle Spasm 30 days #90 tabs 02/06/25 gabapentin 100 mg capsule 200 mg (2 x 100 mg) PO QHS 30 days #60 caps 02/06/25 gabapentin 100 mg capsule 200 mg (2 x 100 mg) PO TIDCM 30 days #180 caps 02/06/25 tramadol 50 mg tablet 50 mg PO Q6H PRN PRN Pain Score 4-5 Or Pre Pt/Ot 7 days #28 tabs 02/06/25 Hospital Course Operations None Procedures None Summary of Care Provided Minutes Spent on Discharge: 35 Hospital Course: 69 year old female with below past medical history hospitalized for acute respiratory failure with hypoxia 2/2 saddle pulmonary embolism (thrombectomy notrecommended), complicated by right lower extremity dvt, pulmonary fibrosis, lefttotal knee replacement failure, admitted to TCU with debility, here for rehabilitation, strengthening, prior to discharge home with . 02/06/2025 Left knee swelling, order Doppler ultrasound left lower extremity to evaluate for dvt. Discharge home with 02/09/2025, pending appeal, [facility] PT/OT/SN, Oxygen. Oxygen: Patient requires 2 LPM of oxygen via nasal cannula d/t saddle pulmonaryembolism, pulmonary fibrosis; requires a concentrator and portable O2 tanks to allow patient to be mobile in the home and the community; O2 will improve the patient condition in the home setting. Physical Exam Const alert General Appearance: cooperative HEENT normocephalic Eyes PERRL and EOMs intact bilaterally Neck supple, no JVD and no carotid bruits Resp normal respiratory effort, normal air movement and clear to auscultation bilaterally Cardio regular rate and regular rhythm GI normal to inspection, nondistended, normoactive bowel sounds, non-tender and non-distended Extremity normal capillary refill General Extremity: Negative for edema Skin no rashes or lesions noted General Skin Exam: no breakdown Psych affect normal Appearance: appropriate Weight / BMI Weight Weight: 70.789 kg Body Mass Index (BMI) 30.4 ABG / Lab / Microbiology Data 02/02/25 05:13 02/02/25 05:13 D/C Instructions Discharge Diet: No restrictions Discharge Activity: Return to Normal Activity, May Shower and Use Walker Weight Bearing Status: Weight bearing as tolerated Call your doctor if you observe: Fever of 101 or Higher, Inability to urinate, Inability to have a bowel movement, Shortness of breath, Dizziness, Fainting spells, Swelling in the ankles, Chest pain and Uncontrolled pain DC O2, CPAP, BIPAP Needs PSN CPAP & BiPAP: BiPAP & CPAP Settings per PSN Fraction of Inspired Oxygen ( 96 02/02/25 22:11 FIO2) Home O2 Discharge instructions: Yes Type of respiratory needs?: Oxygen Oxygen frequency: ContinuousContinuous oxygen liters per minute: 2 DC home with Oxygen: Yes Home O2 MD Review: I have reviewed the oxygen testing, and the patient qualifies for home oxygen equipment and portability. The patient is mobile in the home and the community. Please Follow Up With: Cindy Guerrier NP When: 02/12/2025. Meaningful Use Info Meaningful Use Meaningful Use Diagnoses (Choose all that apply): None applicable Ischemic Stroke Statin Dosing Therapy Reference: STATIN DOSE THERAPY REFERENCE: * Patients > 75 years receive moderate or high dose statin therapy. * Patients 75 years or YOUNGER should receive HIGH intensity statin dose unless contraindicated. You will be required to document reason for non-treatment if statin daily dose does not meet guidelines. HIGH DOSE STATIN THERAPY DAILY Atorvastatin > than or = to 40 mg Rosuvastatin > than or = to 20 mg Amlodipine + Atorvastatin > than or = to 2.5/40 mg Ezetimibe + Simvastatin 10/80 mg Simvastatin 80mg Discharge Plan Admission Admit Date/Time: 01/26/25 14:40 Primary Reason for Your Visit: Debility. Attending Provider: Scott Mcdowell Chi Primary Care Provider: Lori Dale Instructions Additional Instructions / Restrictions: Discharge home with 02/09/2025, pending appeal, [facility] PT/OT/SN, Oxygen. Oxygen: Patient requires 2 LPM of oxygen via nasal cannula d/t saddle pulmonaryembolism, pulmonary fibrosis; requires a concentrator and portable O2 tanks to allow patient to be mobile in the home and the community; O2 will improve the patient condition in the home setting. Discharge Orders/Prescriptions Prescriptions: New tramadol 50 mg Tablet 50 mg PO Q6H PRN PRN (Reason: Pain Score 4-5 Or Pre Pt/Ot) 7 Days Qty: 28 0RF baclofen 10 mg Tablet 10 mg PO TID PRN PRN (Reason: Muscle Spasm) 30 Days Qty: 90 0RF gabapentin 100 mg Capsule 200 mg PO QHS 30 Days Qty: 60 0RF gabapentin 100 mg Capsule 200 mg PO TIDCM 30 Days Qty: 180 0RF Eliquis 5 mg Tablet 5 mg PO BID 30 Days Qty: 60 0RF Discontinued oxycodone 5 mg tablet 5 mg PO Q4H PRN (Reason: pain) Patient Comments: TAKES 5MG TID meloxicam 7.5 mg tablet 7.5 mg PO BID Patient Comments: PT STATES SHE HASN'T TAKEN THIS IN A FEW DAYS vitamin E Oil 1 applic topical DAILY sennosides [senna] 8.6 mg tablet 17.2 mg PO DAILY PRN (Reason: constipation) Eliquis 5 mg Tablet 10 mg PO BID Qty: 0 0RF Rx Instructions: Last day for this dose is 02/01/2020 5 in the PM Eliquis 5 mg Tablet 5 mg PO BID Qty: 0 0RF Rx Instructions: To start on 02/01/2025 oxycodone 5 mg tablet 5 mg PO Q4H PRN (Reason: pain) 2 Days Qty: 12 0RF Referrals / Follow Up: Scott Mcdowell Chi, MD [Med Staff - Active Staff] - Within 1 Week (New patient appointment/TCU TCM) Disposition Disposition (needs filled in before D/C Order can be placed): Home Health Service 02/06/251954 Cosigner Signature (if applicable): CC: CHERRY Dale; Dr. Scott Mcdowell MD~ Signed ADDENDUM by Dr. Scott Mcdowell MD on 02/09/25 at 1359 Addendum Discharge home with 02/10/2025, pending appeal, [facility] PT/OT/SN, Oxygen. 02/09/25 1359 Cosigner Signature (if applicable): cc: CHERRY Dale; Dr. Scott Mcdowell MD ~* Signed [facility]03-13-2025 Radiology Diagnostic study note [facility] Imaging Services [address] [place] [address] CTA Chest W/WO Contrast MR#: [id number] Acct: [id number] Name: EDSON COOK Rep #: [id number] : 1955 F 69 From: Nadia Burnette MD PCP: Lori Dale BRONZE PLATER-C Status: REG CL I Study:CTA Chest W/WO Contrast Date of Exam: 02/08/25 Exam# [id number] Ordering Dr: Scott Mcdowell MD EXAM: CT Angiography Chest Without and With Intravenous Contrast CLINICAL INDICATION: PE TECHNIQUE: Axial computed tomographic angiography images of the chest without and with intravenous contrast. This CT exam was performed using one or more of the following dose reduction techniques: automated exposure control,adjustment of the mA and/or kV according to patient size, and/or use of iterative reconstruction technique. MIP reconstructed images were created and reviewed. COMPARISON: No relevant prior studies available. FINDINGS: LIMITATIONS: Suboptimal opacification of the pulmonary arteries. PULMONARY ARTERIES: No pulmonary embolism is identified. Some of the distal pulmonary arteries cannot be evaluated due to suboptimal opacification. AORTA: No acute findings. No thoracic aortic aneurysm. LUNGS AND PLEURAL SPACES: Lung emphysema/COPD. No mass. No consolidation. Nosignificant effusion. No pneumothorax. HEART: Unremarkable. No cardiomegaly. No significant pericardial effusion. No evidence of RV dysfunction. MEDIASTINUM: Scattered mediastinal lymph nodes some of which are upper limits of normal in size andare most likely reactive lymph nodes. BONES/JOINTS: No acute fracture. No dislocation. SOFT TISSUES: Unremarkable. LYMPH NODES: See above. CT/CTA Chest W/WO Contrast IMPRESSION: 1. No pulmonary embolism is identified. Some of the distal pulmonary arteries cannot be evaluated due to suboptimal opacification. 2. Scattered mediastinal lymph nodes some of which are upper limits of normal in size and are most likely reactive lymph nodes. 3. Lung emphysema/COPD. 4. Continue low-dose CT scan of the chest in 12 months is recommended. Reading Location: [facility] CC: BRONZE PLATER-C Lori Dale; Dr. Scott Mcdowell MD ~ Mat Machine Tender: Signed [facility]03-11-2025 [facility]03-04-2025 Progress note Author Anum Cody [facility] Note Date/Time January 30, 2025 2:28 pm [facility] Medical Records Department [address] [place] [address] Progress Note - Pharmacy 01/30/25 1509 MR#: [id number] Acct: [id number] Name: EDSON COOK Rep #:[id number] : 1955 69 From: Anum Cody PCP: CLOVIS AllenC Status:ADM IN Location: TCU [facility] Documented by User: Anum Cody 01/30/25 15:22 TCU RX Drug Regimen Review Subjective/Objective Subjective/Objective Subjective: TCU Admission. 69 YOF presented to the ER with weakness. Hospitalized for acute respiratory failure with hypoxia 2/2 saddle pulmonary embolism (thrombectomy not recommended), complicated by right lower extremity dvt, pulmonary fibrosis, left total knee replacement failure. Admitted to TCU with debility for strengthening and rehabilitation. Objective: Allergies No Known Allergies Allergy (Verified 01/23/25 13:59) Current Medications Generic Name Dose Route Start Last Admin Trade Name Freq PRN Reason Stop Dose Admin Acetaminophen 1,000 mg 01/26/25 15:42 01/28/25 03:20 Acetaminophen 500 Mg Tablet PO 1,000 mg Q6H PRN PRN Administration Pain Score 1-3 Apixaban 10 mg 01/26/25 22:00 01/30/25 08:10 Apixaban 5 Mg Tablet PO 01/31/25 23:59 10 mg BID GABBI Administration Apixaban 5 mg 02/01/25 10:00 Apixaban 5 Mg Tablet PO 07/23/25 23:59 BID GABBI Baclofen 10 mg 01/27/25 18:53 01/30/25 10:22 Baclofen 10 Mg Tablet PO 10 mg TID PRN PRN Administration MUSCLE SPASM Gabapentin 100 mg 01/28/25 07:45 01/30/25 13:43 Gabapentin 100 Mg Capsule PO 100 mg TIDCM GABBI Administration Magnesium Citrate 300 ml 01/26/25 15:42 Magnesium Citrate 300 Ml PO DAILY PRN Constipation Meloxicam 7.5 mg 01/26/25 22:00 01/30/25 08:10 Meloxicam 7.5 Mg Tablet PO 7.5 mg BID GABBI Administration Oxycodone HCl 5 mg 01/26/25 15:02 01/29/25 22:04 Oxycodone 5 Mg Tablet PO 5 mg Q4H PRN Administration Pain Score 6-10 or Pre PT/OT Senna/Docusate Sodium 2 tablet 01/26/25 22:00 01/30/25 08:12 Senna/Docusate Sodium 1 Tablet PO 2 tablet BID GABBI Administration Sodium Chloride 10 - 40 ml 01/26/25 14:58 01/30/25 10:18 0.9% Saline Lock 10 Ml Syringe IV 10 ml UD PRN Administration SALINE FLUSH Tramadol HCl 50 mg 01/26/25 15:42 01/28/25 22:09 Tramadol 50 Mg Tablet PO 50 mg Q6H PRN PRN Administration Pain Score 4-5 or Pre PT/OT Tuberculin PPD 0.1 ml 02/03/25 10:00 Tuberculin,Purif.Prot.Deriv. 50 Tu/Ml Vial ID 02/03/25 10:01 X1 ONE Problem List Failed total left knee replacement (Acute) Osteoarthritis of left knee (Acute) Pulmonary fibrosis (Acute) Right leg DVT (Acute) Saddle pulmonary embolus (Acute) Acute respiratory failure with hypoxia (Acute) Debility (Acute) Vital Signs Temp Pulse Resp BP Pulse Ox O2 Del Method O2 Flow Rate 97.5 F L 96 16 121/68 H 97 Nasal Cannula 0.5 01/30/25 08:04 01/30/25 08:08 01/30/25 08:04 01/30/25 08:08 01/30/25 08:33 01/30/25 11:50 01/30/25 11:50 Oxygen Flow Rate (L/min) 0.5 Oxygen Delivery Method Nasal Cannula Weight: 72.03 kg Body Mass Index (BMI) 31.0 Sodium 136 mmol/L (133-145) 01/27/25 04:22 Potassium 3.4 mmol/L (3.3-5.1) 01/27/25 04:22 Carbon Dioxide 26.2 mmol/L (22.0-29.0) 01/27/25 04:22 Anion Gap 10 (5-15) 01/27/25 04:22 BUN 13 mg/dL (4-19) 01/27/25 04:22 Creatinine 0.41 mg/dL (0.70-1.20) L 01/27/25 04:22 Est GFR (MDRD) Non-Af 105 (>60) 01/27/25 04:22 BUN/Creatinine Ratio 32.1 RATIO (10-20) H 01/27/25 04:22 Glucose 99 mg/dL (70-99) 01/27/25 04:22 Assessment/Plan: 1. Pain/arthritis: meloxicam 7.5mg PO BID, acetaminophen 1000mg PO Q6H PRN pain 1-3, tramadol 50mg PO Q6H PRN pain 4-5 and oxycodone 5mg PO Q4H PRN pain 6-10. Resident has had 1 dose of acetaminophen, 3 doses of tramadol and 5 doses of oxycodone for pain scores of 5-7 in the knee/thigh. Please continue to monitor for increased pain, PRN usage, constipation, respiratory depression, renal function, S/S of bleeding, falls (BEERs). 2. Bowel: senna/docusate 2T PO BID and magnesium citrate 300mL PO daily PRN constipation. No PRN doses have been given. Please continue to monitor for constipation and PRN usage. Last documented bowel movement was 01/30. 3. Saddle pulmonary embolism/RLE DVT: apixaban 10mg PO BID x 7 days, then 5mg POBID thru 07/23/25. Please continue to monitor for S/S of bleeding, SOB, leg pain and hemoglobin (last 10g/dL). 4. Muscle spasms: baclofen 10mg PO QHS PRN muscle spasms. Resident has had 2 doses. Please continue to monitor for PRN usage, muscle spasms, hypotonia, drowsiness. Assessment/Plan for indications treated with psychotropic medications: 1. Neuropathic pain (pt reported pins and needles feeling per nursing note): gabapentin 100mg Po BIDCM. GDR not appropriate as this medication was just started. Please continue to monitor for increased pain, renal function, falls/fractures (BEERs). Medical chart and medication regimen reviewed. The following medication irregularities or issues were identified: None Date Date of Note: 01/30/25 Documented by User: Dr. Scott Mcdowell MD 01/30/25 15:28 TCU RX Drug Regimen Review Provider Comments Provider responsibility Provider Comments to Recommendations by Pharmacy Agree 01/30/25 1522 <Electronically signed by Anum Cody> Anum Cody Cosigner Signature (if applicable): 01/30/25 1528 <Electronically signed by Scott Mcdowell MD> CC: ~ Signed [facility] Work Phone: 1(429) 516-223403-04-2025 Progress note [facility] Medical Records Department [address] [place] [address] Progress Note - Pharmacy 01/30/25 1509 MR#: [id number] Acct: [id number] Name: EDSON COOK Rep #:[id number] : 1955 69 From: Anum Cody PCP: CLOVIS AllenC Status:ADM IN Location: [place] [address] Documented by User: Anum Cody 01/30/25 15:22 TCU RX Drug Regimen Review Subjective/Objective Subjective/Objective Subjective: TCU Admission. 69 YOF presented to the ER with weakness. Hospitalized for acute respiratory failure with hypoxia 2/2 saddle pulmonary embolism (thrombectomy not recommended), complicated by right lower extremity dvt, pulmonary fibrosis, left total knee replacement failure. Admitted to TCU with debility for strengthening and rehabilitation. Objective: Allergies No Known Allergies Allergy (Verified 01/23/25 13:59) Current Medications Generic Name Dose Route Start Last Admin Trade Name Freq PRN Reason Stop Dose Admin Acetaminophen 1,000 mg 01/26/25 15:42 01/28/25 03:20 Acetaminophen 500 Mg Tablet PO 1,000 mg Q6H PRN PRN Administration Pain Score 1-3 Apixaban 10 mg 01/26/25 22:00 01/30/25 08:10 Apixaban 5 Mg Tablet PO 01/31/25 23:59 10 mg BID GABBI Administration Apixaban 5 mg 02/01/25 10:00 Apixaban 5 Mg Tablet PO 07/23/25 23:59 BID GABBI Baclofen 10 mg 01/27/25 18:53 01/30/25 10:22 Baclofen 10 Mg Tablet PO 10 mg TID PRN PRN Administration MUSCLE SPASM Gabapentin 100 mg 01/28/25 07:45 01/30/25 13:43 Gabapentin 100 Mg Capsule PO 100 mg TIDCM GABBI Administration Magnesium Citrate 300 ml 01/26/25 15:42 Magnesium Citrate 300 Ml PO DAILY PRN Constipation Meloxicam 7.5 mg 01/26/25 22:00 01/30/25 08:10 Meloxicam 7.5 Mg Tablet PO 7.5 mg BID GABBI Administration Oxycodone HCl 5 mg 01/26/25 15:02 01/29/25 22:04 Oxycodone 5 Mg Tablet PO 5 mg Q4H PRN Administration Pain Score 6-10 or Pre PT/OT Senna/Docusate Sodium 2 tablet 01/26/25 22:00 01/30/25 08:12 Senna/Docusate Sodium 1 Tablet PO 2 tablet BID GABBI Administration Sodium Chloride 10 - 40 ml 01/26/25 14:58 01/30/25 10:18 0.9% Saline Lock 10 Ml Syringe IV 10 ml UD PRN Administration SALINE FLUSH Tramadol HCl 50 mg 01/26/25 15:42 01/28/25 22:09 Tramadol 50 Mg Tablet PO 50 mg Q6H PRN PRN Administration Pain Score 4-5 or Pre PT/OT Tuberculin PPD 0.1 ml 02/03/25 10:00 Tuberculin,Purif.Prot.Deriv. 50 Tu/Ml Vial ID 02/03/25 10:01 X1 ONE Problem List Failed total left knee replacement (Acute) Osteoarthritis of left knee (Acute) Pulmonary fibrosis (Acute) Right leg DVT (Acute) Saddle pulmonary embolus (Acute) Acute respiratory failure with hypoxia (Acute) Debility (Acute) Vital Signs Temp Pulse Resp BP Pulse Ox O2 Del Method O2 Flow Rate 97.5 F L 96 16 121/68 H 97 Nasal Cannula 0.5 01/30/25 08:04 01/30/25 08:08 01/30/25 08:04 01/30/25 08:08 01/30/25 08:33 01/30/25 11:50 01/30/25 11:50 Oxygen Flow Rate (L/min) 0.5 Oxygen Delivery Method Nasal Cannula Weight: 72.03 kg Body Mass Index (BMI) 31.0 Sodium 136 mmol/L (133-145) 01/27/25 04:22 Potassium 3.4 mmol/L (3.3-5.1) 01/27/25 04:22 Carbon Dioxide 26.2 mmol/L (22.0-29.0) 01/27/25 04:22 Anion Gap 10 (5-15) 01/27/25 04:22 BUN 13 mg/dL (4-19) 01/27/25 04:22 Creatinine 0.41 mg/dL (0.70-1.20) L 01/27/25 04:22 Est GFR (MDRD) Non-Af 105 (>60) 01/27/25 04:22 BUN/Creatinine Ratio 32.1 RATIO (10-20) H 01/27/25 04:22 Glucose 99 mg/dL (70-99) 01/27/25 04:22 Assessment/Plan: 1. Pain/arthritis: meloxicam 7.5mg PO BID, acetaminophen 1000mg PO Q6H PRN pain 1-3, tramadol 50mg PO Q6H PRN pain 4-5 and oxycodone 5mg PO Q4H PRN pain 6-10. Resident has had 1 dose of acetaminophen, 3 doses of tramadol and 5 doses of oxycodone for pain scores of 5-7 in the knee/thigh. Please continue to monitor for increased pain, PRN usage, constipation, respiratory depression, renal function,S/S of bleeding, falls (BEERs). 2. Bowel: senna/docusate 2T PO BID and magnesium citrate 300mL PO daily PRN constipation. No PRN doses have been given. Please continue to monitor for constipation and PRN usage. Last documented bowel movement was 01/30. 3. Saddle pulmonary embolism/RLE DVT: apixaban 10mg PO BID x 7 days, then 5mg POBID thru 07/23/25. Please continue to monitor for S/S of bleeding, SOB, leg pain and hemoglobin (last 10g/dL). 4. Muscle spasms: baclofen 10mg PO QHS PRN muscle spasms. Resident has had 2 doses. Please continueto monitor for PRN usage, muscle spasms, hypotonia, drowsiness. Assessment/Plan for indications treated with psychotropic medications: 1. Neuropathic pain (pt reported pins and needles feeling per nursing note): gabapentin 100mg Po BIDCM. GDR not appropriate as this medication was just started. Please continue to monitor for increased pain, renal function, falls/fractures (BEERs). Medical chart and medication regimen reviewed. The following medication irregularities or issues were identified: None Date Date of Note: 01/30/25 Documented by User: Dr. Scott Mcdowell MD 01/30/25 15:28 U RX Drug Regimen Review Provider Comments Provider responsibility Provider Comments to Recommendations by Pharmacy Agree 01/30/25 1522 Anum Diallo Signature (if applicable): 01/30/25 1528 CC: ~ Signed [facility]02-28-2025 History and physical note Author [facility] Note Date/Time January 26, 2025 2:48pm [facility] Medical Records Department [address] [place] [address] History & Physical Exam 01/26/25 1454 MR#: [id number] Acct: [id number] Name: EDSON COOK Rep #:[id number] : 1955 69 From: Scott Mcdowell MD PCP: CHERRY Allen Status:ADM IN Location: [facility] TCU08-1 HPI - General General Date of Admission: 01/26/25 Date of Service: 01/26/25 Chief Complaint: Debility HPI Narrative EDSON COOK, is a 69 Female who presents with followin01/23/2025 [facility] ED generalized weakness. Dr. Gan performed left total knee arthroplasty 11/16/2024, ongoing left knee pain, needs revision left total knee arthroplasty femoral component 01/29/2025. Nausea for 4 to 5 days, pain i back with breathing cough for 3 days. Fever 102, covid negative, flu negative, lightheaded. Stopped wearing compression stockings, on aspirin twice daily for dvt prophylaxis. WBC 18.1, D-dimer > 20. CTA chest showed saddle embolus, CTA chest negative right heart strain, Dr. Petty recommended heparin drip, echo, NPO for thrombectomy in morning. Normal saline 2 liters IV bolus given. Pulmonary embolism, possible pulmonary infarct. 01/23/2025 Admit [facility]. IV fluids for hypotension. Heparin drip for saddle pulmonary embolism. 01/24/2025 Dyspnea on exertion, pain in knee, back. Delay revision left total knee arthroplasty femoral component 12/31 pulmonary embolism. Vascular surgery recommended no thrombectomy. Change Heparin to Eliquis 10mg bid x 7 days, then 5mg bid x 6 months. Oxygen 2 liters per nasal cannula. CTA chest showed pulmonary fibrosis. Dilaudid IV prn left knee pain. 01/24/2025 Echo EF 65%. Negative diastolic dysfunction. 01/24/2025 Doppler ultrasound positive dvt right lower extremity. 01/25/2025 No acute events overnight. Oxygen 2 liters per nasal cannula. Significant dyspnea on exertion, severe left knee pain, needs SNF on discharge. Eliquis for saddle pulmonary embolism. Lasix 40mg iv push x 1 dose. Pulmonary fibrosis: RA 20.2 mildly elevated. Anti-CCP pending. QUITA negative. ANCA pending. SCL 70 pending. double stranded DNA antibody pending. Follow up pulmonary as outpatient. Hemoglobin stable. 01/26/2025 Admit to TCU with debility, here for rehabilitation, strengthening, prior to discharge home with . [facility] Medical History (Updated 01/26/25 @ 15:[address] Scott Mcdowell MD) Failed total left knee replacement Osteoarthritis of left knee Pulmonary fibrosis Right leg DVT Saddle pulmonary embolus Acute respiratory failure with hypoxia Debility Home Medications ?Medication ?Instructions ?Recorded ?Last Taken ?Type meloxicam 7.5 mg tablet 7.5 mg PO BID pain 01/23/25 Unknown History oxycodone 5 mg tablet 5 mg PO Q4H PRN pain 01/23/2 5 01/23/25 History sennosides 8.6 mg tablet (senna) 17.2 mg PO DAILY PRN constipation 01/23/25 01/22/25 History vitamin E 1 applic topical DAILY to af fected 01/23/25 Unknown History area apixaban 5 mg tablet (Eliquis) 5 mg PO BID blood thinn er #0 tabs 01/26/25 Unknown Rx apixaban 5 mg tablet (Eliquis) 10 mg (2 x 5 mg) PO BID blood 01/26/25 Unknown Rx thinner #0 tabs oxycodone 5 mg tablet 5 mg PO Q4H PRN pain 2 days #12 01/26/25 Unknown Rx tabs Allergy/AdvReac Type Severity Reaction Status Date / Time No Known Allergies Allergy Verified 01/23/25 13:59 Surgical History History of appendectomy Total knee replacement status Social History (Updated 01/26/25 @ 15:[address] Scott Mcdowell MD) household members: spouse Smoking Status: Never smoker alcohol intake: never substance use type: does not use ROS Constitutional Constitutional: Reports weakness; Denies chills, fever(s) or weight gain ENT HEENT: Denies headache(s), nasal congestion or nasal discharge Cardiovascular Cardiovascular: Denies chest pain or palpitations Respiratory/Chest Respiratory/Chest: Reports dyspnea on exertion and shortness of breath with exertion; Denies cough or excessive phlegm production Gastrointestinal Gastrointestinal: Denies abdominal pain, nausea or vomiting Genitourinary Genitourinary: Denies dysuria Musculoskeletal Musculoskeletal: Denies joint pain or joint swelling Integumentary Integumentary: Denies rash or wounds Neurologic Neurologic: Denies focal weakness, numbness or tingling Psychiatric Psychiatric: Denies anxiety, auditory hallucinations, depression, homicidal ideation or suicidal ideation Physical Exam Const alert General Appearance: cooperative HEENT normocephalic Eyes PERRL and EOMs intact bilaterally Neck supple, no JVD and no carotid bruits Resp normal respiratory effort, normal air movement and clear to auscultation bilaterally Cardio regular rate and regular rhythm GI normal to inspection, nondistended, normoactive bowel sounds, non-tender and non-distended Extremity normal capillary refill General Extremity: Negative for edema Skin no rashes or lesions noted General Skin Exam: no breakdown Psych affect normal Appearance: appropriate Assessment & Plan Assessment/Plan (1) Debility: (2) Acute respiratory failure with hypoxia: (3) Saddle pulmonary embolus: (4) Right leg DVT: (5) Pulmonary fibrosis: (6) Osteoarthritis of left knee: (7) Failed total left knee replacement: PLAN: Plan 69 year old female with below past medical history hospitalized for acute respiratory failure with hypoxia 2/2 saddle pulmonary embolism (thrombectomy notrecommended), complicated by right lower extremity dvt, pulmonary fibrosis, lefttotal knee replacement failure, admitted to TCU with debility, here for rehabilitation, strengthening, prior to discharge home with . * Debility - PT/OT. * Pain - Tylenol 1000mg q6 prn pain (1-3), Tramadol 50mg q6 prn pain (4-5), Oxycodone 5mg q4 prn pain (6-10). * Bowel - senna/colace 2 tablets bid, Magnesium citrate 300mL po daily prn * Adult immunization - Administer pneumonia vaccine, covid vaccine, flu vaccine as appropriate. * DVT prophylaxis - Eliquis. * Osteoarthritis - Meloxicam 7.5mg bid, monitor for signs and symptoms of bleeding. * Saddle pulmonary embolism - Eliquis 10mg bid x 7 days, then Eliquis 5mg bid thru 07/23/2025. * Right lower extremity dvt - Eliquis 10mg bid x 7 dyas, then Eliquis 5mg bid thru 07/23/2025. * Pulmonary fibrosis - Bloodwork evaluation pending, f/u Dr. Allred as outpatient. She has had shortness of breath with exertion for 4 years, limiting her ability [place], she has 12 acres she likes to care for, and walking up a hill has been unable for 4 years, this is prior to pulmonary embolism. * Left total knee replacement failure - schedule revision left total knee rep lacement femoral component with Dr. Gan once off anticoagulation. * Rash - Vitamin E topical bid. 01/26/25 6995 <Electronically signed by Scott Mcdowell MD> Cosigner Signature (if applicable): CC: CHERRY Dale; Dr. Scott Mcdowell MD~ Signed [facility] Work Phone: 1(256) 311-585202-28-2025 [facility]02-28-2025 History and physical note [facility] Medical Records Department [address] [place] [id number] History & Physical Exam 01/26/25 1454 MR#: [id number] Acct: [id number] Name: EDSON COOK Rep #:[id number] : 1955 69 From: Scott Mcdowell MD PCP: Lori Dale, CLOVISC Status:ADM IN Location: [place] [address] HPI - General General Date of Admission: 01/26/25 Date of Service: 01/26/25 Chief Complaint: Debility HPI Narrative EDSON COOK, is a 69 Female who presents with followin01/23/2025 [facility] ED generalized weakness. Dr. Gan performed left total knee arthroplasty 11/16/2024, ongoing left knee pain, needs revision left total knee arthroplasty femoral component 01/29/2025. Nausea for 4 to 5 days, pain i back with breathing cough for 3 days. Fever 102, covid negative, flu negative, lightheaded. Stopped wearing compression stockings, on aspirin twice daily for dvt prophylaxis. WBC 18.1, D-dimer > 20. CTA chest showed saddle embolus, CTA chest negative right heart strain, Dr. Petty recommended heparin drip, echo, NPO for thrombectomy in morning. Normal saline 2 liters IV bolus given. Pulmonary embolism, possible pulmonary infarct. 01/23/2025 Admit [facility]. IV fluids for hypotension. Heparin drip for saddle pulmonary embolism. 01/24/2025 Dyspnea on exertion, pain in knee, back. Delay revision left total knee arthroplasty femoral component 12/31 pulmonary embolism. Vascular surgery recommended no thrombectomy. Change Heparin to Eliquis 10mg bid x 7 days, then 5mg bid x 6 months. Oxygen 2 liters per nasal cannula. CTA chest showed pulmonary fibrosis. Dilaudid IV prn left knee pain. 01/24/2025 Echo EF 65%. Negative diastolic dysfunction. 01/24/2025 Doppler ultrasound positive dvt right lower extremity. 01/25/2025 No acute events overnight. Oxygen 2 liters per nasal cannula. Significant dyspnea on exertion, severe left knee pain, needs SNF on discharge. Eliquis for saddle pulmonary embolism. Lasix 40mg iv push x 1 dose. Pulmonary fibrosis: RA 20.2 mildly elevated. Anti-CCP pending. QUITA negative. ANCA pending. SCL 70 pending. double stranded DNA antibody pending. Follow up pulmonary as outpatient. Hemoglobin stable. 01/26/2025 Admit to TCU with debility, here for rehabilitation, strengthening, prior to discharge home with . [facility] Medical History (Updated 01/26/25 @ 15:[address] Scott Mcdowell MD) Failed total left knee replacement Osteoarthritis of left knee Pulmonary fibrosis Right leg DVT Saddle pulmonary embolus Acute respiratory failure with hypoxia Debility Home Medications ?Medication ?Instructions ?Recorded ?Last Taken ?Type meloxicam 7.5 mg tablet 7.5 mg PO BID pain 01/23/25 Unknown History oxycodone 5 mg tablet 5 mg PO Q4H PRN pain 5 01/23/25 History sennosides 8.6 mg tablet (senna) 17.2 mg PO DAILY PRN constipation 01/23/25 01/22/25 History vitamin E 1 applic topical DAILY to af fected 01/23/25 Unknown History area apixaban 5 mg tablet (Eliquis) 5 mg PO BID blood thinn er #0 tabs 01/26/25 Unknown Rx apixaban 5 mg tablet (Eliquis) 10 mg (2 x 5 mg) PO BID blood 01/26/25 Unknown Rx thinner #0 tabs oxycodone 5 mg tablet 5 mg PO Q4H PRN pain 2 days #12 01/26/25 Unknown Rx tabs Allergy/AdvReac Type Severity Reaction Status Date / Time No Known Allergies Allergy Verified 01/23/25 13:59 Surgical History History of appendectomy Total knee replacement status Social History (Updated 01/26/25 @ 15:[address] Scott Mcdowell MD) household members: spouse Smoking Status: Never smoker alcohol intake: never substance use type: does not use ROS Constitutional Constitutional: Reports weakness; Denies chills, fever(s) or weight gain ENT HEENT: Denies headache(s), nasal congestion or nasal discharge Cardiovascular Cardiovascular: Denies chest pain or palpitations Respiratory/Chest Respiratory/Chest: Reports dyspnea on exertion and shortness of breath with exertion; Denies cough or excessive phlegm production Gastrointestinal Gastrointestinal: Denies abdominal pain, nausea or vomiting Genitourinary Genitourinary: Denies dysuria Musculoskeletal Musculoskeletal: Denies joint pain or joint swelling Integumentary Integumentary: Denies rash or wounds Neurologic Neurologic: Denies focal weakness, numbness or tingling Psychiatric Psychiatric: Denies anxiety, auditory hallucinations, depression, homicidal ideation or suicidal ideation Physical Exam Const alert General Appearance: cooperative HEENT normocephalic Eyes PERRL and EOMs intact bilaterally Neck supple, no JVD and no carotid bruits Resp normal respiratory effort, normal air movement and clear to auscultation bilaterally Cardio regular rate and regular rhythm GI normal to inspection, nondistended, normoactive bowel sounds, non-tender and non-distended Extremity normal capillary refill General Extremity: Negative for edema Skin no rashes or lesions noted General Skin Exam: no breakdown Psych affect normal Appearance: appropriate Assessment & Plan Assessment/Plan (1) Debility: (2) Acute respiratory failure with hypoxia: (3) Saddle pulmonary embolus: (4) Right leg DVT: (5) Pulmonary fibrosis: (6) Osteoarthritis of left knee: (7) Failed total left knee replacement: PLAN: Plan 69 year old female with below past medical history hospitalized for acute respiratory failure with hypoxia 2/2 saddle pulmonary embolism (thrombectomy notrecommended), complicated by right lower extremity dvt, pulmonary fibrosis, lefttotal knee replacement failure, admitted to TCU with debility, here for rehabilitation, strengthening, prior to discharge home with . * Debility - PT/OT. * Pain - Tylenol 1000mg q6 prn pain (1-3), Tramadol 50mg q6 prn pain (4-5), Oxycodone 5mg q4 prn pain (6-10). * Bowel - senna/colace 2 tablets bid, Magnesium citrate 300mL po daily prn * Adult immunization - Administer pneumonia vaccine, covid vaccine, flu vaccine as appropriate. * DVT prophylaxis - Eliquis. * Osteoarthritis - Meloxicam 7.5mg bid, monitor for signs and symptoms of bleeding. * Saddle pulmonary embolism - Eliquis 10mg bid x 7 days, then Eliquis 5mg bid thru 07/23/2025. * Right lower extremity dvt - Eliquis 10mg bid x 7 dyas, then Eliquis 5mg bid thru 07/23/2025. * Pulmonary fibrosis - Bloodwork evaluation pending, f/u Dr. Allred as outpatient. She has had shortness of breath with exertion for 4 years, limiting her ability [place], she has 12 acres she likes to care for, and walking up a hill has been unable for 4 years, this is prior to pulmonary embolism. * Left total knee replacement failure - schedule revision left total knee rep lacement femoral component with Dr. Gan once off anticoagulation. * Rash - Vitamin E topical bid. 01/26/25 1548 Cosigner Signature (if applicable): CC: BRONZE PLATERAdal Dale; Dr. Scott Mcdowell MD~ [facility]* Diagnosis Onset Date Resolution Status Admit Date Hypoxia acute January 23, 2025 7:21pm Leukocytosis acute December 7:21pm Pulmonary embolism acute 2024 7:21pm Fever resolved January 23, 2025 7:21pm Acute respiratory failure wi th hypoxia acute January 26, 2 025 2:40pm Debility acute January 26, 2025 2:40pm Failed total left knee replacement acute January 26 2 025 2:40pm Osteoarthritis of left knee acute January 26, 2025 2:40pm Pulmonary fibrosis acute 2024 2:40pm Right leg DVT acute January 262024 2:40pm Saddle pulmonary embolus acute January 26, 2025 2:40pm [facility] Work Phone: 1(505) 262-812202-25-2025 Evaluation note* Diagnosis Onset Date Resolution Status Admit Date Hypoxia acute January 23, 2025 7:21pm Leukocytosis acute December 7:21pm Pulmonary embolism acute 2024 7:21pm Fever resolved January 23, 2025 7:21pm Acute respiratory failure wi th hypoxia acute January 26, 2 025 2:40pm Debility acute January 26, 2025 2:40pm Failed total left knee replacement acute January 26, 2 025 2:40pm Osteoarthritis of left knee acute January 26, 2025 2:40pm Pulmonary fibrosis acute Februa 2024 2:40pm Right leg DVT acute January 262024 2:40pm Saddle pulmonary embolus acute January 26, 2025 2:40pm Acute respiratory failure wi th hypoxia acute February 12, 2025 1:43pm Failed total left knee replacement acute February 12, 2025 1:43pm Pulmonary fibrosis acute February 12, 2025 1:43pm Rheumatoid factor positive acute February 12, 2025 1:43pm Saddle pulmonary embolus acute February 12, 2025 1:43pm [facility] Work Phone: 1(407) 529-975002-25-2025 Evaluation note* Diagnosis Onset Date Resolution Status Admit Date Hypoxia acute January 23, 2025 7:21pm Leukocytosis acute December 7:21pm Pulmonary embolism acute 2024 7:21pm Fever resolved January 23, 2025 7:21pm Acute respiratory failure wi th hypoxia acute January 26, 2 025 2:40pm Debility acute January 26, 2025 2:40pm Failed total left knee replacement acute January 26, 2 025 2:40pm Osteoarthritis of left knee acute January 26, 2025 2:40pm Right leg DVT acute January 262024 2:40pm Saddle pulmonary embolus chronic January 26, 2025 2:40pm Pulmonary fibrosis suspected 2024 2:40pm Acute respiratory failure wi th hypoxia acute February 12, 2025 1:43pm Failed total left knee replacement acute February 12, 2025 1:43pm Rheumatoid factor positive chronic February 12, 2025 1:43pm Saddle pulmonary embolus chronic February 12, 2025 1:43pm Pulmonary fibrosis suspected February 12, 2025 1:43pm Failed total left knee replacement acute April 02, 2025 10 :32am Chronic hypoxic respiratory failure chronic April 02, 2025 10 :32am Pulmonary hypertension chronic Ma 2024 10:32am Rheumatoid factor positive chronic April 02, 2025 10:32am Saddle pulmonary embolus chronic April 02, 2025 10:32am Pulmonary fibrosis suspected March 10:32am [facility] Work Phone: 1([phone]) 994-110702-25-2025 Evaluation note* Diagnosis Onset Date Resolution Status Admit Date Hypoxia acute January 23, 2025 7:21pm Leukocytosis acute December 7:21pm Pulmonary embolism acute , 2025 7:21pm Fever resolved January 23, 2025 7:21pm Acute respiratory failure wi th hypoxia acute January 26, 2 025 2:40pm Debility acute January 26, 2025 2:40pm Failed total left knee replacement acute January 26, 2 025 2:40pm Osteoarthritis of left knee acute January 26, 2025 2:40pm Right leg DVT acute January 262024 2:40pm Saddle pulmonary embolus chronic January 26, 2025 2:40pm Pulmonary fibrosis suspected 2024 2:40pm Acute respiratory failure wi th hypoxia acute February 12, 2025 1:43pm Failed total left knee replacement acute February 12, 2025 1:43pm Rheumatoid factor positive chronic February 12, 2025 1:43pm Saddle pulmonary embolus chronic February 12, 2025 1:43pm Pulmonary fibrosis suspected February 12, 2025 1:43pm Failed total left knee replacement acute April 02, 2025 10 :32am Chronic hypoxic respiratory failure chronic April 02, 2025 10 :32am Pulmonary hypertension chronic Ma y 2024 10:32am Rheumatoid factor positive chronic April 02, 2025 10:32am Saddle pulmonary embolus chronic April 02, 2025 10:32am Pulmonary fibrosis suspected March 10:32am Failed total left knee replacement acute May 10, 2025 10:42am Chronic hypoxic respiratory failure chronic May 10, 2025 10:42am Pulmonary hypertension chronic Ju ne 2024 10:42am [facility] Work Phone: 1(188) 301-506802-25-2025 Evaluation note* Diagnosis Onset Date Resolution Status Admit Date Hypoxia acute January 23, 2025 7:21pm Leukocytosis acute December 7:21pm Pulmonary embolism acute 2024 7:21pm Fever resolved January 23, 2025 7:21pm Acute respiratory failure wi th hypoxia acute January 26, 2 025 2:40pm Debility acute January 26, 2025 2:40pm Osteoarthritis of left knee acute January 26, 2025 2:40pm Right leg DVT acute January 262024 2:40pm Saddle pulmonary embolus chronic January 26, 2025 2:40pm Pulmonary fibrosis suspected 2024 2:40pm Failed total left knee replacement inactive January 26, 025 2:40pm Acute respiratory failure wi th hypoxia acute February 12, 2025 1:43pm Rheumatoid factor positive chronic February 12, 2025 1:43pm Saddle pulmonary embolus chronic February 12, 2025 1:43pm Pulmonary fibrosis suspected February 12, 2025 1:43pm Failed total left knee replacement inactive February 12, 2025 1:43pm Chronic hypoxic respiratory failure chronic April 02, 2025 10 :32am Pulmonary hypertension chronic Ma y 2024 10:32am Rheumatoid factor positive chronic April 02, 2025 10:32am Saddle pulmonary embolus chronic April 02, 2025 10:32am Pulmonary fibrosis suspected March 10:32am Failed total left knee replacement inactive April 02, 2025 10 :32am Chronic hypoxic respiratory failure chronic May 10, 2025 4:26pm Pulmonary hypertension chronic Ju 2024 4:26pm Failed total left knee replacement inactive May 10, 2025 4:26pm Debility acute May 14 3:04pm Postoperative anemia acute May 14, 2025 3:04pm Pulmonary embolism acute April 292024 3:04pm Chronic hypoxic respiratory failure chronic May 14, 2025 3:04pm Pulmonary fibrosis suspected April 292024 3:04pm Failed total left knee replacement inactive May 14, 2025 3:04pm [facility] Work Phone: 1(716) 576-419011-25-2024 Note ORIGINAL EXAMINATION: CT OF THE LEFT KNEE WITHOUT IHUVUQYB32/25/2024 9:[address] KNEE LEFT WITHOUT CONTRAST TECHNIQUE: CT of the left knee was performed without the administration of intravenous contrast. Multiplanar reformatted images are provided for review. Automated exposure control, iterative reconstruction, and/or weight based adjustment of the mA/kV was utilized to reduce the radiation dose to as low as reasonably achievable. MA KO protocol was performed with axial images through the left hip and left ankle. COMPARISON: None available HISTORY: ORDERING SYSTEM PROVIDED HISTORY: Reason for Exam: Unilateral primary osteoarthritis, left knee Chronic pain lt knee. NKI. CONCEPCION protocol. FINDINGS: There is no acute fracture or dislocation. No suspicious osseous lesions. Severe tricompartmental osteoarthritis of the left knee most pronounced in the medial compartment with [id number], subchondral sclerosis, subchondral cysts and marginal osteophyte formation. There is spurring of the tibial spines and intercondylar notch. Lateral coronal tibiofemoral subluxation. Small to moderate knee joint effusion. Pubic symphysis is maintained. Moderate to severe left femoroacetabular joint space narrowing. Bilateral bipartite accessory navicularis. The Achilles tendon is thickened distally, correlate for Achilles tendinosis. Limited evaluation of the neuro vasculature with lack of contrast. IMPRESSION: Severe tricompartmental osteoarthritis of the left knee with bone on bone contact of the medial tibiofemoral joint compartment, in patient presenting for preop planning. Small to moderate knee joint effusion. Additional incidental details as above. I have personally reviewed the images of this examination and agree with the resident's findings and interpretation. Interpreted by: Ilene Orourke Preliminary Report By: Jaiden Maier Electronically signed By Ilene Orourke Dictated Date: 10/23/2024 4:20:57 PM Prelim Date: 10/23/2024 4:58:41 PM Sign Date: 10/23/2024 4:58:41 PM Ordering Provider: [facility]11-20-2024 History of Present illness Narrative* Lori Dale, METAL MACHINIST-FINANCE CONSULTANT - 10/18/2024 8:40 AM EST Subjective Edson Cook is a 69 y.o. female who presents to the office today for a preoperative consultation at the request of surgeon Bria Gan MD who plans on performing robotic assisted left total knee arthroplasty on November 16. Planned anesthesia is unknown . The patient has the following known anesthesia issues: none . Patient has a bleeding risk of: no recent abnormal bleeding. Patient does not have objections to receiving blood products if needed. Review of Systems ROS Gen: denies fever, chills, weight loss, fatigue HEENT: denies sinus pressure, sinus congestion, runny nose, red eyes, itchy eyes, vision loss, ear pain, hearing loss, throat pain, trouble swallowing Neck: denies neck pain, neck swelling or masses Chest/breast: denies breast pain, breast lumps, nipple discharge CV: denies chest pain, palpitations, fast heart rate, syncope Resp: denies shortness of breath, cough, wheezing GI: denies abdominal pain, nausea, diarrhea, constipation, hematochezia, melena : denies dysuria, hematuria, vaginal discharge, frequency Endo: denies polydipsia, polyuria, heat/cold intolerance, weight change, hair thinning Heme: denies easy bruising, easy bleeding Neuro: denies headache, numbness, tingling, memory loss, changes in vision MSK: Left knee pain. denies weakness Psych: denies suicidal ideation, homicidal ideation, depression, anxiety, mood swings Skin: denies rashes, abnormal lesions, itching, changes in moles Objective Physical Exam Physical Exam General: Alert and oriented, in no acute distress. Appears stated age, well- nourished, and well hydrated HEENT: - Head: Normocephalic and atraumatic - Eyes: EOMI, PERRLA - ENT: Hearing grossly intact Heart: RRR. No murmurs, clicks, or rubs Lungs: Unlabored breathing. CTAB with no crackles, wheezes, or rhonchi Abdomen: Normal BS in all 4 quadrants. Soft, non-tender, non-distended, with no masses Extremities: Warm and well perfused. No edema. Normal peripheral pulses Musculoskeletal: Normal gait and station Neurological: Alert and oriented. No gross neurological deficits Psychological: Appropriate mood and affect Skin: No rash, abnormal lesions, cyanosis, or erythema Cardiographics ECG: normal sinus rhythm, no blocks or conduction defects, no ischemic changes Echocardiogram: not done Imaging Chest x-ray: not done Lab Review Lab Results Component Value Date NA 139 10/18/2024 K 4.4 10/18/2024 CL 103 10/18/2024 CO2 27 10/18/2024 BUN 14 10/18/2024 CREATININE 0.65 10/18/2024 GLUCOSE 96 10/18/2024 CALCIUM 9.5 10/18/2024 Lab Results Component Value Date WBC 6.6 10/18/2024 HGB 14.1 10/18/2024 HCT 43.7 10/18/2024 MCV 90 10/18/2024 PLT 243 10/18/2024 Assessment/Plan 69 y.o. female with planned surgery as above. Known risk factors for perioperative complications: None Difficulty with intubation is not anticipated. Cardiac Risk Estimation: per the Revised Cardiac Risk Index (Circ. 100:1043, 1999), the patient's risk factors for cardiac complications include none , putting her in: RCI RISK CLASS I (0 risk factors, risk of major cardiac compl. appr. 0.5%) Current medications which may produce withdrawal symptoms if withheld perioperatively: none. 1. Preoperative workup as follows ECG, hemoglobin, hematocrit, electrolytes, creatinine, liver function studies, coagulation studies. 2. Change in medication regimen before surgery: none, continue medication regimen including morningof surgery, with sip of water. 3. Prophylaxis for cardiac events with perioperative beta-blockers: not indicated. 4. Invasive hemodynamic monitoring perioperatively: at the discretion of anesthesiologist. 5. Deep vein thrombosis prophylaxis postoperatively:regimen to be chosen by surgical team. 6. Surveillance for postoperative UT with ECG immediately postoperatively and on postoperative days1 and 2 AND troponin levels 24 hours postoperatively and on day 4 or hospital discharge (whichever comes first): at the discretion of anesthesiologist. Patient cleared for surgery from a medical standpoint. However, should the patient's condition change at the time of surgery, decision to proceed should be left up to the discretion of the surgical team. ROSALEE Allen [facility] documented in this [facility] Work Phone: 1(156) 961-535311-18-2024 History of Present illness Narrative* ROSALEE Lyon - 10/16/2024 8:40 AM EST Subjective Reason for Visit: Edson Coko is an 69 y.o. female here for a Medicare Wellness visit. Reviewed all medications by prescribing practitioner or clinical pharmacist (such as prescriptions,OTCs, herbal therapies and supplements) and documented in the medical record. HPI Patient Care Team: ROSALEE Lyon as PCP - General (Family Medicine) Bria Gan MD as Referring Physician (Orthopaedic Surgery) PHQ-2/9: 0 STEADI Fall Risk: Low falls risk Home and Safety Risk Factors: Home Safety Risk Factors: Loose rugs, Household clutter Functional Ability/Level of Safety: Cognitive Impairment Observed: No cognitive impairment observed Cognitive Impairment Reported: No cognitive impairment reported by patient or family General Health: Patient Self Assessment: Excellent Nutrition and Exercise: Current Diet: Well Balanced Diet Adequate Fluid Intake: No Caffeine: Yes Exercise Frequency: No Exercise Activities of Daily Living Screening: Hearing - Right Ear: Functional Hearing - Left Ear: Functional Bathing: Independent Dressing: Independent Walks in Home: Independent Review of Systems Gen: denies fever, chills, weight loss, fatigue HEENT: denies sinus pressure, sinus congestion, runny nose, red eyes, itchy eyes, vision loss, ear pain, hearing loss, throat pain, trouble swallowing Neck: denies neck pain, neck swelling or masses Chest/breast: denies breast pain, breast lumps, nipple discharge CV: denies chest pain, palpitations, fast heart rate, syncope Resp: denies shortness of breath, cough, wheezing GI: denies abdominal pain, nausea, diarrhea, constipation, hematochezia, melena : denies dysuria, hematuria, vaginal discharge, frequency Endo: denies polydipsia, polyuria, heat/cold intolerance, weight change, hair thinning Heme: denies easy bruising, easy bleeding Neuro: denies headache, numbness, tingling, memory loss, changes in vision MSK: L knee pain. denies joint swelling, weakness Psych: denies suicidal ideation, homicidal ideation, depression, anxiety, mood swings Skin: denies rashes, abnormal lesions, itching, changes in moles Objective Vitals: BP 118/78 Pulse 88 Temp 36.4 C (97.6 F) Wt 59.9 kg (132 lb) SpO2 94% Physical Exam Patient declined director patient for exam. General: Alert and oriented, in no acute distress. Appears stated age, well- nourished, and well hydrated HEENT: - Head: Normocephalic and atraumatic - Eyes: EOMI, PERRLA - ENT: Hearing grossly intact. Mucus membranes pink and moist without lesions. Tonsils present without swelling or exudates. Good dentition. TMs bustillos Neck: Supple. No stiffness. No thyromegaly or thyroid nodules Heart: RRR. No murmurs, clicks, or rubs Lungs: Unlabored breathing. CTAB with no crackles, wheezes, or rhonchi Abdomen: Normal BS in all 4 quadrants. Soft, non-tender, non-distended, with no masses Breasts: Breasts nontender. No skin changes, dimpling, or nipple discharge. No lumps palpated Extremities: Warm and well perfuses. No edema. Normal peripheral pulses Musculoskeletal: ROM intact. Strength 5/5 in BUE and BLE. No joint swelling. Normal gait and station Neurological: Alert and oriented. No gross neurological deficits. Normal sensation. No weakness. DTRs +2/4 Psychological: Appropriate mood and affect Skin: No rash, abnormal lesions, cyanosis, or erythema Assessment & Plan Medicare annual wellness visit, subsequent - Declined all vaccines including COVID, flu, RSV, Shingles, Tdap, Pneumococcal - Declined mammogram - Declined DEXA scan - Cologuard ordered - Orders: Comprehensive metabolic panel; Future Lipid Panel; Future CBC and Auto Differential; Future Tsh With Reflex To Free T4 If Abnormal; Future - Advance Directives Discussion: 16 - 20 minutes were spent discussing Advanced Care Planning (including a Living Will, Medical Power Of Labor Contractor, as well as specific end of life choices and/or directives). The details of that discussion were documented in Advanced Directives Discussion section of the medical record. ROSALEE Allen [facility] documented in this [facility] Work Phone: 1(307) 329-726711-18-2024 Miscellaneous Notes* ACP (Advance Care Planning) - ROSALEE Lyon - 10/16/2024 8:40 AM EST Confirming Previous Code Status: Advance Care Planning Note Discussion Date: 10/16/24 Discussion Participants: patient The patient wishes to discuss Advance Care Planning today and the following is a brief summary of our discussion. Patient has capacity to make their own medical decisions: Yes Health Care Agent/Surrogate Decision Maker documented in chart: Yes, Ilir Cook Documents on file and valid: Advance Directive/Living Will: Has filled out but not on file, will bring in Health Care Power of Labor Contractor: Has filled out but not on file, will bring in Communication of Medical Status/Prognosis: Good Communication of Treatment Goals/Options: Good Treatment Decisions Goals of Care: survival is prioritized, if goals for quality or survival can reasonably be achieved Follow Up Plan Stable Team Members Stable Time Statement: Total face to face time spent on advance care planning was 6 minutes with 16 minutes spent in counseling, including the explanation. ROSALEE Lyon 10/16/2024 9:11 AM [facility] [phone] Note* ACP (Advance Care Planning) - ROSALEE Lyon - 10/16/2024 8:40 AM EST Confirming Previous Code Status: Advance Care Planning Note Discussion Date: 10/16/24 Discussion Participants: patient The patient wishes to discuss Advance Care Planning today and the following is a brief summary of our discussion. Patient has capacity to make their own medical decisions: Yes Health Care Agent/Surrogate Decision Maker documented in chart: Yes, Ilir Cook Documents on file and valid: Advance Directive/Living Will: Has filled out but not on file, will bring in Health Care Power of Labor Contractor: Has filled out but not on file, will bring in Communication of Medical Status/Prognosis: Good Communication of Treatment Goals/Options: Good Treatment Decisions Goals of Care: survival is prioritized, if goals for quality or survival can reasonably be achieved Follow Up Plan Stable Team Members Stable Time Statement: Total face to face time spent on advance care planning was 6 minutes with 16 minutes spent in counseling, including the explanation. ROSALEE Lyon 10/16/2024 9:11 AM [facility] Work Phone: Evaluation + Plan note No data available for this section [facility] Evaluation note* Diagnosis Medicare annual wellness visit, subsequent- Primary Screening for cardiovascular condition Screening for other and unspecified cardiovascular conditions Colon cancer screening Special screening for malignant neoplasms, colon Annual physical exam Routine general medical examination at a health care facility documented in this encounter [facility] Work Phone: Evaluation note* Diagnosis Preop examination- Primary Unspecified pre-operative examination Primary osteoarthritis of left knee documented in this encounter [facility] Work Phone: Hospital Discharge instructions No data available for this section [facility] Discharge instructionsAdditional Instructions Discharge home with 05/26/2025, [facility] PT/OT/SN.[facility] Work Phone: Progress note No data available for this section [facility] Progress note Author Lane Harden [facility] Note Date/Time May 14, 2025 2:25 pm [facility] Medical Records Department [address] [place] [address] Progress Note - Hospitalist 05/14/25 1423 MR#: [id number] Acct: [id number] Name: EDSON COOK Rep #:[id number] : 1955 70 From: Lane Harden DO PCP: Dr. 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 I talked with orthopedic surgery about her care today. Objective Data Objective Data Vital Signs: Vital Signs Temp Pulse Resp BP Pulse Ox O2 Del Method O2 Flow Rate 97.8 F 86 16 113/52 L 98 Room Air 2 05/14/25 08:29 05/14/25 10:40 05/14/25 10:40 05/14/25 10:40 05/14/25 08:29 05/14/25 08:30 05/14/25 08:15 Oxygen Flow Rate (L/min) 2 Oxygen Delivery Method Room Air Weight: 76.5 kg Body Mass Index (BMI) 32.9 Intake & Output: Intake and Output for Last 24 Hours 05/12/25 05/13/25 05/14/25 23:59 23:59 23:59 Intake Total 950 / 1250 1400 / 1800 600 / 600 Balance 950 / 1250 1400 / 1800 600 / 600 Lab / Micro Data 05/14/25 05:58 05/11/25 05:47 Labs: Laboratory Results - last 24 hr 05/14/25 05:58: WBC 8.0, RBC 3.24 L, Hgb 9.3 L, Hct 28.7 L, MCV 88.6, MCH 28.7, MCHC 32.4, RDW Std Deviation 46.1 H, RDW Coeff of Xi 14.3, Plt Count 220, MPV 10.3 Micro: Microbiology 05/10/25 15:05 Tissue - Knee Gram Stain - Final 05/10/25 15:05 Tissue - Knee Wound Culture - Final No growth aerobically. 05/10/25 15:05 Tissue - Knee Anaerobic Culture - Preliminary No growth in 48 hours. 05/10/25 15:11 Tissue - Femoral Membrane Gram Stain - Final 05/10/25 15:11 Tissue - Femoral Membrane Wound Culture - Final No growth aerobically. 05/10/25 15:11 Tissue - Femoral Membrane Anaerobic Culture - Preliminary No growth in 48 hours. 05/10/25 15:09 Tissue - Tibial Membrane Gram Stain - Final 05/10/25 15:09 Tissue - Tibial Membrane Wound Culture - Final No growth aerobically. 05/10/25 15:09 Tissue - Tibial Membrane Anaerobic Culture - Preliminary No growth in 48 hours. Physical Exam Narrative alert, oriented x3, no apparent distress and healthy appearing General Appearance: cooperative, well kempt and well developed Orientation / Consciousness: awake, oriented to person, oriented to place and oriented to time HEENT normocephalic, head/scalp atraumatic, moist oral mucous membranes and oropharynxnormal Eyes PERRL, EOMs intact bilaterally and conjunctivae normal Neck supple, no JVD, thyroid normal and no carotid bruits General: trachea midline Resp normal respiratory effort, no retractions, no use of accessory muscles and clearto auscultation bilaterally Auscultation: Negative for rales, rhonchi or wheezes Cardio regular rate, regular rhythm, S1 normal heart sound, S2 normal heart sound, no murmurs, no rub and no gallops GI normal to inspection, nondistended, normoactive bowel sounds, soft to palpation,non-tender and non-distended Extremity no clubbing, cyanosis or edema Skin no rashes or lesions noted General Skin Exam: no breakdown Neuro oriented x3, CN's II-XII intact bilaterally, moves all extremities, no focal motor deficits and no sensory deficits noted Sensorium / Orientation: awake and alert Speech: speech normal Psych affect normal Assessment & Plan Assessment/Plan (1) Chronic hypoxic respiratory failure: (2) Pulmonary hypertension: (3) Failed total left knee replacement: QUALIFIERS: Encounter type: sequela Qualified Code(s): T84.093S -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-status post revision left total knee, entire femoral component-postop day #4 Patient appears stable for transfer to TCU at this time Total clinical time spent by myself addressing the patient's medical issues, reviewing all of her data, and collaborating with patient's care team: 50 minutes Charges/Coding Visit Charges Inpatient E&M: 19438 Subs Hosp 05/14/25 1425 <Electronically signed by Lane Harden DO> Cosigner Signature (if applicable): CC: ~ Signed [facility] Work Phone: Summary Purpose Family History No Family History Records FoundUnknown Family Member Name Dates Details No significant family histor y(V49.89, Z78.9) Comments:Multiple Family Mem bers Status:Active Unknown Family Member Name Dates Details No significant family histor y(V49.89, Z78.9) Comments:Multiple Family Mem bers Status:Active Advance Directives No Advanced Directives Records Found Advance Directive Response Recorded Date/ Time Living Will Yes January 23, 2 025 9:46pm Power of Labor Contractor Yes January 23, 2025 9:46pm Name of Medical Power of Labor Contractor Ilir Cook January 23, 2025 9:46pm Living Will Yes January 29, 2025 1:13pm Power of Labor Contractor Yes January 29 1:13pm Name of Medical Power of Labor Contractor Ilir Cook, January 29, 2025 1:13pm Advance Directive Response Recorded Date/ Time Living Will Yes January 23 9:46pm Do you have a Healthcare Pow er of Labor Contractor? Yes January 23, 2025 9:46pm Name of Medical Power of Labor Contractor Ilir Cook January 23, 2025 9:46pm Living Will Yes January 29, 2025 1:13pm Do you have a Healthcare Pow er of Labor Contractor? Yes January 29, 2025 1:13pm Name of Medical Power of Labor Contractor Ilir Cook, January 29, 2025 1:13pm Advance Directive Response Recorded Date/ Time Living Will Yes January 23 9:46pm Do you have a Healthcare Pow er of Labor Contractor? Yes January 23, 2025 9:46pm Name of Medical Power of Labor Contractor Ilir Cook January 23, 2025 9:46pm Living Will Yes January 29, 2025 1:13pm Do you have a Healthcare Pow er of Labor Contractor? Yes January 29, 2025 1:13pm Name of Medical Power of Labor Contractor Ilir Cook, January 29, 2025 1:13pm Do you have a Healthcare Pow er of Labor Contractor? Yes May 10, 2025 6:20pm Advance Directive Response Recorded Date/ Time Do you have a Healthcare Pow er of Labor Contractor? Yes May 15, 2025 4:39pm Name of Medical Power of Labor Contractor Ilir Cook May 15, 2025 4:39pm Living Will Yes January 23 9:46pm Do you have a Healthcare Pow er of Labor Contractor? Yes January 23, 2025 9:46pm Name of Medical Power of Labor Contractor Ilir Cook January 23, 2025 9:46pm Living Will Yes January 29, 2025 1:13pm Do you have a Healthcare Pow er of Labor Contractor? Yes January 29, 2025 1:13pm Name of Medical Power of Labor Contractor Ilir Cook, January 29, 2025 1:13pm Do you have a Healthcare Pow er of Labor Contractor? Yes May 10, 2025 6:20pm Advance Directive Response Recorded Date/ Time Do you have a Healthcare Power of Labor Contractor? Yes May 15, 2025 4:39pm Name of Medical Power of Labor Contractor Ilir Cook May 15, 2025 4:39pm Do you have a Healthcare Power of Labor Contractor? Yes May 10, 2025 6:20pm Chief Complaint and Reason for Visit Chief Complaint Admit Date SADDLE PE January 23, 2025 7:21pm SADDLE PE January 23, 2025 7:26pm SADDLE PE January 24, 2025 7:17am SADDLE PE January 24, 2025 8:07am SADDLE PE January 24, 2025 5:51pm SADDLE PE January 25, 2025 7:52am SADDLE PE January 25, 2025 4:21pm SADDLE PE January 26, 2025 12:24pm SADDLE PE January 26, 2025 2:40pm LT LEG SWELLING February 07, 2025 8:3 7am PE February 08, 2025 9:4 3am Reason for Visit Admit Date Hypoxia January 23, 2025 7:21pm Leukocytosis January 23, 2025 7:21pm Pulmonary embolism January 23, 2025 7:21pm Fever January 23, 2025 7:21pm Acute respiratory failure with hypoxia F ebruary 2024 2:40pm Debility January 26, 2025 2:40pm Failed total left knee replacement Febru katerin 2024 2:40pm Osteoarthritis of left knee December 2:40pm Pulmonary fibrosis January 26, 2025 2:40pm Right leg DVT January 26, 2025 2:40pm Saddle pulmonary embolus January 26, 2025 2:40pm Chief Complaint Admit Date SADDLE PE January 23, 2025 7:21pm SADDLE PE January 23, 2025 7:26pm SADDLE PE January 24, 2025 7:17am SADDLE PE January 24, 2025 8:07am SADDLE PE January 24, 2025 5:51pm SADDLE PE January 25, 2025 7:52am SADDLE PE January 25, 2025 4:21pm SADDLE PE January 26, 2025 12:24pm SADDLE PE January 26, 2025 2:40pm LT LEG SWELLING February 07, 2025 8:3 7am PE February 08, 2025 9:4 3am Hospital FU February 12, 2025 1:4 3pm Reason for Visit Admit Date Hypoxia January 23, 2025 7:21pm Leukocytosis January 23, 2025 7:21pm Pulmonary embolism January 23, 2025 7:21pm Fever January 23, 2025 7:21pm Acute respiratory failure with hypoxia F ebruary 2024 2:40pm Debility January 26, 2025 2:40pm Failed total left knee replacement Febru katerin 2024 2:40pm Osteoarthritis of left knee December 2:40pm Pulmonary fibrosis January 26, 2025 2:40pm Right leg DVT January 26, 2025 2:40pm Saddle pulmonary embolus January 26, 2025 2:40pm Acute respiratory failure with hypoxia M arch 2024 1:43pm Failed total left knee replacement February 12, 2025 1:43pm Pulmonary fibrosis February 12, 2025 1:4 3pm Rheumatoid factor positive February 12, 025 1:43pm Saddle pulmonary embolus February 12 1:43pm Chief Complaint Admit Date SADDLE PE January 23, 2025 7:21pm SADDLE PE January 23, 2025 7:26pm SADDLE PE January 24, 2025 7:17am SADDLE PE January 24, 2025 8:07am SADDLE PE January 24, 2025 5:51pm SADDLE PE January 25, 2025 7:52am SADDLE PE January 25, 2025 4:21pm SADDLE PE January 26, 2025 12:24pm SADDLE PE January 26, 2025 2:40pm LT LEG SWELLING February 07, 2025 8:3 7am PE February 08, 2025 9:4 3am Hospital FU February 12, 2025 1:4 3pm pulmonary embolism February 27, 2025 10:2 7am Chief Complaint Admit Date SADDLE PE January 23, 2025 7:21pm SADDLE PE January 23, 2025 7:26pm SADDLE PE January 24, 2025 7:17am SADDLE PE January 24, 2025 8:07am SADDLE PE January 24, 2025 5:51pm SADDLE PE January 25, 2025 7:52am SADDLE PE January 25, 2025 4:21pm SADDLE PE January 26, 2025 12:24pm SADDLE PE January 26, 2025 2:40pm LT LEG SWELLING February 07, 2025 8:3 7am PE February 08, 2025 9:4 3am Hospital FU February 12, 2025 1:4 3pm pulmonary embolism February 27, 2025 10:2 7am 1 M FU April 02, 2025 10:32a m Reason for Visit Admit Date Hypoxia January 23, 2025 7:21pm Leukocytosis January 23, 2025 7:21pm Pulmonary embolism January 23, 2025 7:21pm Fever January 23, 2025 7:21pm Acute respiratory failure with hypoxia F ebruary 2024 2:40pm Debility January 26, 2025 2:40pm Failed total left knee replacement Febru katerin 2024 2:40pm Osteoarthritis of left knee December 2:40pm Right leg DVT January 26, 2025 2:40pm Saddle pulmonary embolus January 26, 2025 2:40pm Pulmonary fibrosis January 26, 2025 2:40pm Acute respiratory failure with hypoxia [facility] 2024 1:43pm Failed total left knee replacement February 12, 2025 1:43pm Rheumatoid factor positive February 12, 2 025 1:43pm Saddle pulmonary embolus February 12 1:43pm Pulmonary fibrosis February 12, 2025 1:4 3pm Failed total left knee replacement April 022024 10:32am Chronic hypoxic respiratory failure April 02, 2025 10:32am Pulmonary hypertension April 02, 2025 10: 32am Rheumatoid factor positive April 02, 2025 10:32am Saddle pulmonary embolus April 02, 2025 1 0:32am Pulmonary fibrosis April 02, 2025 10:32a m Chief Complaint Admit Date SADDLE PE January 23, 2025 7:21pm SADDLE PE January 23, 2025 7:26pm SADDLE PE January 24, 2025 7:17am SADDLE PE January 24, 2025 8:07am SADDLE PE January 24, 2025 5:51pm SADDLE PE January 25, 2025 7:52am SADDLE PE January 25, 2025 4:21pm SADDLE PE January 26, 2025 12:24pm SADDLE PE January 26, 2025 2:40pm LT LEG SWELLING February 07, 2025 8:3 7am PE February 08, 2025 9:4 3am Hospital FU February 12, 2025 1:4 3pm pulmonary embolism February 27, 2025 10:2 7am 1 M FU April 02, 2025 10:32a m NEED COVID AND RSV TEST ORDER April 27, 2025 11:02am ERAS, Total Knee Replacement, Revision J une 2024 10:42am ERAS, Total Knee Replacement, Revision J une 2024 5:36pm ERAS, Total Knee Replacement, Revision J une 2024 4:29pm ERAS, Total Knee Replacement, Revision J une 2024 11:31am ERAS, Total Knee Replacement, Revision J une 2024 11:22am Reason for Visit Admit Date Hypoxia January 23, 2025 7:21pm Leukocytosis January 23, 2025 7:21pm Pulmonary embolism January 23, 2025 7:21pm Fever January 23, 2025 7:21pm Acute respiratory failure with hypoxia F ebruary 2024 2:40pm Debility January 26, 2025 2:40pm Failed total left knee replacement Febru katerin 2024 2:40pm Osteoarthritis of left knee December 2:40pm Right leg DVT January 26, 2025 2:40pm Saddle pulmonary embolus January 26, 2025 2:40pm Pulmonary fibrosis January 26, 2025 2:40pm Acute respiratory failure with hypoxia [facility] 2024 1:43pm Failed total left knee replacement February 12, 2025 1:43pm Rheumatoid factor positive February 12, 2 025 1:43pm Saddle pulmonary embolus February 12 1:43pm Pulmonary fibrosis February 12, 2025 1:4 3pm Failed total left knee replacement April 022024 10:32am Chronic hypoxic respiratory failure April 02, 2025 10:32am Pulmonary hypertension April 02, 2025 10: 32am Rheumatoid factor positive April 02, 2025 10:32am Saddle pulmonary embolus April 02, 2025 1 0:32am Pulmonary fibrosis April 02, 2025 10:32a m Failed total left knee replacement May 10, 2025 10:42am Chronic hypoxic respiratory failure May 10, 2025 10:42am Pulmonary hypertension May 10, 2025 1 0:42am Chief Complaint Admit Date SADDLE PE January 23, 2025 7:21pm SADDLE PE January 23, 2025 7:26pm SADDLE PE January 24, 2025 7:17am SADDLE PE January 24, 2025 8:07am SADDLE PE January 24, 2025 5:51pm SADDLE PE January 25, 2025 7:52am SADDLE PE January 25, 2025 4:21pm SADDLE PE January 26, 2025 12:24pm SADDLE PE January 26, 2025 2:40pm LT LEG SWELLING February 07, 2025 8:3 7am PE February 08, 2025 9:4 3am Hospital FU February 12, 2025 1:4 3pm pulmonary embolism February 27, 2025 10:2 7am 1 M FU April 02, 2025 10:32a m NEED COVID AND RSV TEST ORDER April 27, 2025 11:02am Chief Complaint Admit Date SADDLE PE January 23, 2025 7:21pm SADDLE PE January 26, 2025 12:24pm SADDLE PE January 26, 2025 2:40pm LT LEG SWELLING February 07, 2025 8:3 7am PE February 08, 2025 9:4 3am Hospital FU February 12, 2025 1:4 3pm pulmonary embolism February 27, 2025 10:2 7am 1 M FU April 02, 2025 10:32a m NEED COVID AND RSV TEST ORDER April 27, 2025 11:02am ERAS, Total Knee Replacement, Revision J [facility] 2024 4:26pm ERAS, Total Knee Replacement, Revision J [facility] 2024 5:36pm ERAS, Total Knee Replacement, Revision [facility] 2024 4:29pm ERAS, Total Knee Replacement, Revision [facility] 2024 11:31am ERAS, Total Knee Replacement, Revision [facility] 2024 11:22am L KNEE REVISION May 14, 2025 3:04 pm Reason for Visit Admit Date Hypoxia January 23, 2025 7:21pm Leukocytosis January 23, 2025 7:21pm Pulmonary embolism January 23, 2025 7:21pm Fever January 23, 2025 7:21pm Acute respiratory failure with hypoxia F ebruary 2024 2:40pm Debility January 26, 2025 2:40pm Osteoarthritis of left knee December 2:40pm Right leg DVT January 26, 2025 2:40pm Saddle pulmonary embolus January 26, 2025 2:40pm Pulmonary fibrosis January 26, 2025 2:40pm Failed total left knee replacement Febru katerin 2024 2:40pm Acute respiratory failure with hypoxia M arch 2024 1:43pm Rheumatoid factor positive February 12, 2 025 1:43pm Saddle pulmonary embolus February 12 1:43pm Pulmonary fibrosis February 12, 2025 1:4 3pm Failed total left knee replacement February 12, 2025 1:43pm Chronic hypoxic respiratory failure April 02, 2025 10:32am Pulmonary hypertension April 02, 2025 10: 32am Rheumatoid factor positive April 02, 2025 10:32am Saddle pulmonary embolus April 02, 2025 1 0:32am Pulmonary fibrosis April 02, 2025 10:32a m Failed total left knee replacement April 022024 10:32am Chronic hypoxic respiratory failure May 10, 2025 4:26pm Pulmonary hypertension May 10, 2025 4 :26pm Failed total left knee replacement May 10, 2025 4:26pm Debility May 14, 2025 3:04 pm Postoperative anemia May 14, 2025 3:0 4pm Pulmonary embolism May 14, 2025 3:04 pm Chronic hypoxic respiratory failure May 14, 2025 3:04pm Pulmonary fibrosis May 14, 2025 3:04 pm Failed total left knee replacement May 14, 2025 3:04pm Chief Complaint Admit Date pulmonary embolism February 27, 2025 10:2 7am 1 M FU April 02, 2025 10:32a m NEED COVID AND RSV TEST ORDER April 27, 2025 11:02am ERAS, Total Knee Replacement, Revision J [facility] 2024 4:26pm ERAS, Total Knee Replacement, Revision J [facility] 2024 5:36pm LLE PAIN May 12, 2025 10:3 3am ERAS, Total Knee Replacement, Revision J [facility] 2024 4:29pm ERAS, Total Knee Replacement, Revision J [facility] 2024 11:31am ERAS, Total Knee Replacement, Revision J 2024 11:22am L KNEE REVISION May 14, 2025 3:04 pm Reason for Visit Admit Date Chronic hypoxic respiratory failure April 02, 2025 10:32am Pulmonary hypertension April 02, 2025 10: 32am Rheumatoid factor positive April 02, 2025 10:32am Saddle pulmonary embolus April 02, 2025 1 0:32am Pulmonary fibrosis April 02, 2025 10:32a m Failed total left knee replacement April 022024 10:32am Chronic hypoxic respiratory failure May 10, 2025 4:26pm Pulmonary hypertension May 10, 2025 4 :26pm Failed total left knee replacement May 10, 2025 4:26pm Debility May 14, 2025 3:04 pm Postoperative anemia May 14, 2025 3:0 4pm Pulmonary embolism May 14, 2025 3:04 pm Chronic hypoxic respiratory failure May 14, 2025 3:04pm Pulmonary fibrosis May 14, 2025 3:04 pm Failed total left knee replacement May 14, 2025 3:04pm Additional Source Comments INFORMATION SOURCE (unrecogn ized section and content) DATE CREATED AUTHOR 08/10/2019 [facility] DATE CREATED AUTHOR AUTHOR'S ORGANIZ ATION 08/13/2019 [employer] DATE CREATED AUTHOR AUTHOR'S ORGANIZ ATION 10/20/2024 [facility] DATE CREATED AUTHOR AUTHOR'S ORGANIZ ATION 10/24/2024 [facility] DATE CREATED AUTHOR AUTHOR'S ORGANIZ ATION 06/29/2025 [facility] DATE CREATED AUTHOR AUTHOR'S ORGANIZ ATION 07/16/2025 [facility] Reason for Visit (unrecogniz ed section and content) Reason Comments Establish Care Reason Comments Follow-up Care Teams (unrecognized sec tion and content) 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 Relationship Specialty Start Date End Date Lori Dale, METAL MACHINIST-FINANCE CONSULTANT [address] [facility], [address] [place] [address] PCP - General Family Medicine 09/21/24 Bria Gan MD [address] [place] [id number] Referring Physician Orthopaedic Surgery 10/16/24 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 Martha Long , Emergency Provider Active Start: January 23, 2025 End: January 26, 2025 Dr. Raymundo Bhardwaj DO Admit Provider Active Star t: January 23, 2025 End: January 26, 2025 Dr. Raymundo Bhardwaj DO Other Provider Active Star t: January 23, 2025 End: January 26, 2025 Dr. Raymundo Petty MD Other Provider Active Start : January 23, 2025 End: January 26, 2025 Dr. Lori Matthews DO Attending Provider Active S tart: January 23, 2025 End: January 26, 2025 Team Status: Active Member Role Status Dates CHERRY Allen Primary Care Provider Active Start: January 23, 2025 Dr. Martha Long DO Emergency Provider Active Start: January 23, 2025 Dr. Raymundo Bhardwaj DO Admit Provider Active Star t: January 23, 2025 Dr. Raymundo Bhardwaj DO Attending Provider Active Start: January 23, 2025 Dr. Raymundo Bhardwaj DO Other Provider Active Star t: January 23, 2025 Team Status: Active Member Role Status Dates Lori Dale NP-C Primary Care Provider Active Start: January 24, 2025 Dr. Martha Long DO Emergency Provider Active Start: January 24, 2025 Dr. Raymundo Bhardwaj DO Admit Provider Active Star t: January 24, 2025 Dr. Raymundo Bhardwaj DO Other Provider Active Star t: January 24, 2025 Dr. Raymundo Petty MD Other Provider Active Start : January 24, 2025 Dr. Lonnie Garcia MD Other Provider Active Start: January 24, 2025 Dr. Casey Norton MD Other Provider Active Start: January 24, 2025 Dr. Caleb Godinez MD Other Provider Active Star t: January 24, 2025 Dr. Cuba Allred DO Other Provider Active Start : January 24, 2025 Dr. Charles Langley MD Other Provider Active Sta rt: January 24, 2025 Dr. Vinayak Fraga MD Other Provider Active St art: January 24, 2025 Dr. Kalen Altamirano MD Other Provider Active S tart: January 24, 2025 Dr. Roberta Ballard MD Other Provider Active Start: January 24, 2025 Dr. Saurabh Chacon MD Other Provider Active Start : January 24, 2025 Dr. Oni Obrien MD Other Provider Active Start: January 24, 2025 Dr. Preet Serrano MD Other Provider Active Start : January 24, 2025 Dr. Kelin Gustafson MD Other Provider Active Star t: January 24, 2025 Dr. Oliverio Eller MD Other Provider Active Sta rt: January 24, 2025 Dr. Lilliana Pineda MD Other Provider Active Sta rt: January 24, 2025 Dr. Iván Carson MD Other Provider Active Star t: January 24, 2025 Dr. Pk Hu MD Other Provider Active St art: January 24, 2025 Dr. Lamont Jeter MD Other Provider Active Star t: January 24, 2025 Dr. Raudel Nino DO Other Provider Active St art: January 24, 2025 Dr. Rocio Guzman MD Other Provider Active Start: January 24, 2025 Dr. Amy James MD Other Provider Active St art: January 24, 2025 Dr. Piero Payne DO Other Provider Active Start: January 24, 2025 Dr. Johnny Doherty MD Other Provider Active Star t: January 24, 2025 Dr. Fabricio Light MD Other Provider Active Sta rt: January 24, 2025 Dr. Lori Matthews DO Attending Provider Active S tart: January 24, 2025 Dr. Lori Matthews DO Other Provider Active Start : January 24, 2025 Team Status: Active Member Role Status Dates Lori Dale BRONZE PLATER-C Primary Care Provider Active Start: January 24, 2025 Dr. Gurinder Yan MD Attending Provider Activ e Start: January 24, 2025 Team Status: Active Member Role Status Dates Lori Dale BRONZE PLATER-C Primary Care Provider Active Start: January 24, 2025 Dr. Martha Long DO Emergency Provider Active Start: January 24, 2025 Dr. Raymundo Bhardwaj DO Admit Provider Active Star t: January 24, 2025 Dr. Raymundo Bhardwaj DO Other Provider Active Star t: January 24, 2025 Dr. Raymundo Petty MD Other Provider Active Start : January 24, 2025 Dr. Lonnie Garcia MD Other Provider Active Start: January 24, 2025 Dr. Casey Norton MD Other Provider Active Start: January 24, 2025 Dr. Caleb Godinez MD Other Provider Active Star t: January 24, 2025 Dr. Cuba Allred DO Attending Provider Active S tart: January 24, 2025 Dr. Cuba Allred DO Other Provider Active Start : January 24, 2025 Dr. Charles Langley MD Other Provider Active Sta rt: January 24, 2025 Dr. Vinayak Fraga MD Other Provider Active St art: January 24, 2025 Dr. Kalen Altamirano MD Other Provider Active S tart: January 24, 2025 Dr. Roberta Ballard MD Other Provider Active Start: January 24, 2025 Dr. Saurabh Chacon MD Other Provider Active Start : January 24, 2025 Dr. Oni Obrien MD Other Provider Active Start: January 24, 2025 Dr. Preet Serrano MD Other Provider Active Start : January 24, 2025 Dr. Kelin Gustafson MD Other Provider Active Star t: January 24, 2025 Dr. Oliverio Eller MD Other Provider Active Sta rt: January 24, 2025 Dr. Lilliana Pineda MD Other Provider Active Sta rt: January 24, 2025 Dr. Iván Carson MD Other Provider Active Star t: January 24, 2025 Dr. Pk Hu MD Other Provider Active St art: January 24, 2025 Dr. Lamont Jeter MD Other Provider Active Star t: January 24, 2025 Dr. Raudel Nino DO Other Provider Active St art: January 24, 2025 Dr. Rocio Guzman MD Other Provider Active Start: January 24, 2025 Dr. Amy James MD Other Provider Active St art: January 24, 2025 Dr. Piero Payne DO Other Provider Active Start: January 24, 2025 Dr. Johnny Doherty MD Other Provider Active Star t: January 24, 2025 Dr. Fabricio Light MD Other Provider Active Sta rt: January 24, 2025 Dr. Lori Matthews DO Referring Provider Active S tart: January 24, 2025 Dr. Lori Matthews DO Other Provider Active Start : January 24, 2025 Team Status: Active Member Role Status Dates CHERRY Allen Primary Care Provider Active Start: January 24, 2025 Dr. Martha Long DO Emergency Provider Active Start: January 24, 2025 Dr. Raymundo Bhardwaj DO Admit Provider Active Star t: January 24, 2025 Dr. Raymundo Bhardwaj DO Referring Provider Active Start: January 24, 2025 Dr. Raymundo Bhardwaj DO Other Provider Active Star t: January 24, 2025 Dr. Raymundo Petty MD Attending Provider Active S tart: January 24, 2025 Dr. Raymundo Petty MD Other Provider Active Start : January 24, 2025 Dr. Lonnie Garcia MD Other Provider Active Start: January 24, 2025 Dr. Casey Norton MD Other Provider Active Start: January 24, 2025 Dr. Caleb Godinez MD Other Provider Active Star t: January 24, 2025 Dr. Cuba Allred , Other Provider Active Start : January 24, 2025 Dr. Charles Langley MD Other Provider Active Sta rt: January 24, 2025 Dr. Vinayak Fraga MD Other Provider Active St art: January 24, 2025 Dr. Kalen Altamirano MD Other Provider Active S tart: January 24, 2025 Dr. Roberta Ballard MD Other Provider Active Start: January 24, 2025 Dr. Saurabh Chacon MD Other Provider Active Start : January 24, 2025 Dr. Oni Obrien MD Other Provider Active Start: January 24, 2025 Dr. Preet Serrano MD Other Provider Active Start : January 24, 2025 Dr. Kelin Gustafson MD Other Provider Active Star t: January 24, 2025 Dr. Oliverio Eller MD Other Provider Active Sta rt: January 24, 2025 Dr. Lilliana Pineda MD Other Provider Active Sta rt: January 24, 2025 Dr. Iván Carson MD Other Provider Active Star t: January 24, 2025 Dr. Pk Hu MD Other Provider Active St art: January 24, 2025 Dr. Lamont Jeter MD Other Provider Active Star t: January 24, 2025 Dr. Raudel Nino DO Other Provider Active St art: January 24, 2025 Dr. Rocio Guzman MD Other Provider Active Start: January 24, 2025 Dr. Amy James MD Other Provider Active St art: January 24, 2025 Dr. Piero Payne DO Other Provider Active Start: January 24, 2025 Dr. Johnny Doherty MD Other Provider Active Star t: January 24, 2025 Dr. Fabricio Light MD Other Provider Active Sta rt: January 24, 2025 Dr. Lori Matthews DO Other Provider Active Start : January 24, 2025 Team Status: Active Member Role Status Dates Lori Dale NP-Shakira Primary Care Provider Active Start: January 25, 2025 Dr. Martha Long DO Emergency Provider Active Start: January 25, 2025 Dr. Raymundo Jopperi , DO Admit Provider Active Star t: January 25, 2025 Dr. Raymundo Bhardwaj , Other Provider Active Star t: January 25, 2025 Dr. Raymundo Petty MD Other Provider Active Start : January 25, 2025 Dr. Lonnie Garcia MD Other Provider Active Start: January 25, 2025 Dr. Casey Norton MD Other Provider Active Start: January 25, 2025 Dr. Caleb Godinez MD Other Provider Active Star t: January 25, 2025 Dr. Cuba Allred , Attending Provider Active S tart: January 25, 2025 Dr. Cuba Allred DO Other Provider Active Start : January 25, 2025 Dr. Charles Langley MD Other Provider Active Sta rt: January 25, 2025 Dr. Vinayak Fraga MD Other Provider Active St art: January 25, 2025 Dr. Kalen Altamirano MD Other Provider Active S tart: January 25, 2025 Dr. Roberta Ballard MD Other Provider Active Start: January 25, 2025 Dr. Saurabh Chacon MD Other Provider Active Start : January 25, 2025 Dr. Oni Obrien MD Other Provider Active Start: January 25, 2025 Dr. Preet Serrano MD Other Provider Active Start : January 25, 2025 Dr. Kelin Gustafson MD Other Provider Active Star t: January 25, 2025 Dr. Oliverio Eller MD Other Provider Active Sta rt: January 25, 2025 Dr. Lilliana Pineda MD Other Provider Active Sta rt: January 25, 2025 Dr. Iván Carson MD Other Provider Active Star t: January 25, 2025 Dr. Pk Hu MD Other Provider Active St art: January 25, 2025 Dr. Lamont Jeter MD Other Provider Active Star t: January 25, 2025 Dr. Raudel Nino DO Other Provider Active St art: January 25, 2025 Dr. Rocio Guzman MD Other Provider Active Start: January 25, 2025 Dr. Amy James MD Other Provider Active St art: January 25, 2025 Dr. Piero Payne DO Other Provider Active Start: January 25, 2025 Dr. Johnny Doherty MD Other Provider Active Star t: January 25, 2025 Dr. Fabricio Light MD Other Provider Active Sta rt: January 25, 2025 Dr. Lori Matthews DO Referring Provider Active S tart: January 25, 2025 Dr. Lori Matthews DO Other Provider Active Start : January 25, 2025 Team Status: Active Member Role Status Dates Lori Dale BRONZE PLATER-C Primary Care Provider Active Start: January 25, 2025 Dr. Martha Long , Emergency Provider Active Start: January 25, 2025 Dr. Raymundo Bhardwaj DO Admit Provider Active Star t: January 25, 2025 Dr. Raymundo Bhardwaj DO Other Provider Active Star t: January 25, 2025 Dr. Raymundo Petty MD Other Provider Active Start : January 25, 2025 Dr. Lori Matthews DO Attending Provider Active S tart: January 25, 2025 Dr. Lori Matthews DO Other Provider Active Start : January 25, 2025 Team Status: Active Member Role Status Dates Lori Dale BRONZE PLATER-C Primary Care Provider Active Start: January 26, 2025 Dr. Martha Long DO Emergency Provider Active Start: January 26, 2025 Dr. Raymundo Bhardwaj DO Admit Provider Active Star t: January 26, 2025 Dr. Raymundo Bhardwaj DO Other Provider Active Star t: January 26, 2025 Dr. Raymundo Petty MD Other Provider Active Start : January 26, 2025 Dr. Lori Matthews DO Attending Provider Active S tart: January 26, 2025 Dr. Lori Matthews DO Other Provider Active Start : January 26, 2025 Team Status: Inactive Member Role Status Dates Lori Dale NP-C Primary Care Provider Active Start: January 26, 2025 End: February 10, 2025 Dr. Scott Mcdowell MD Admit Provider Active Star t: January 26, 2025 End: February 10, 2025 Dr. Scott Mcdowell MD Attending Provider Active Start: January 26, 2025 End: February 10, 2025 Team Status: Active Member Role Status Dates Lori Dale BRONZE PLATER-C Primary Care Provider Active Start: February 07, 2025 Dr. Scott Mcdowell MD Attending Provider Active Start: February 07, 2025 Dr. Scott Mcdowell MD Referring Provider Active Start: February 07, 2025 Team Status: Active Member Role Status Dates Lori Dale NP-C Primary Care Provider Active Start: February 07, 2025 Dr. Raymundo Petty MD Attending Provider Active S tart: February 07, 2025 Team Status: Active Member Role Status Dates Lori Dale NP-C Primary Care Provider Active Start: February 08, 2025 Dr. Scott Mcdowell MD Attending Provider Active Start: February 08, 2025 Dr. Scott Mcdowell MD Referring Provider Active Start: February 08, 2025 Team Status: Active Member Role Status Dates Dr. Scott Mcdowell MD Primary Care Provider Active Team Status: Inactive Member Role Status Dates Lori Dale BRONZE PLATER-C Primary Care Provider Active Start: February 07, 2025 End: February 07, 2025 Dr. Scott Mcdowell MD Attending Provider Active Start: February 07, 2025 End: February 07, 2025 Dr. Scott Mcdowell MD Referring Provider Active Start: February 07, 2025 End: February 07, 2025 Team Status: Inactive Member Role Status Dates Lori Dale BRONZE PLATER-C Primary Care Provider Active Start: February 12, 2025 End: February 12, 2025 Lori Dale NP-C Referring Provider Active S tart: February 12, 2025 End: February 12, 2025 Cindy Guerrier NP, BRONZE PLATER-C Attending Provider Active Start: February 12, 2025 End: February 12, 2025 Team Status: Active Member Role Status Dates Dr. Scott Mcdowell MD Primary Care Provider Active Start: February 12, 2025 Dr. Scott Mcdowell MD Attending Provider Active Start: February 12, 2025 Team Status: Active Member Role Status Dates Lori Dale NP-C Primary Care Provider Active Start: February 07, 2025 Dr. Raymundo Petty MD Attending Provider Active S tart: February 07, 2025 Dr. Scott Mcdowell MD Referring Provider Active Start: February 07, 2025 Team Status: Inactive Member Role Status Dates Lori Dale BRONZE PLATER-C Primary Care Provider Active Start: February 08, 2025 End: February 08, 2025 Dr. Scott Mcdowell MD Attending Provider Active Start: February 08, 2025 End: February 08, 2025 Dr. Scott Mcdowell MD Referring Provider Active Start: February 08, 2025 End: February 08, 2025 Team Status: Inactive Member Role Status Dates Dr. Scott Mcdowell MD Primary Care Provider Active Start: February 12, 2025 End: February 12, 2025 Dr. Scott Mcdowell MD Attending Provider Active Start: February 12, 2025 End: February 12, 2025 Team Status: Inactive Member Role Status Dates Dr. Scott Mcdowell MD Primary Care Provider Active Start: February 27, 2025 End: February 27, 2025 Cindy Guerrier BRONZE PLATER, BRONZE PLATER-C Attending Provider Active Start: February 27, 2025 End: February 27, 2025 Cidny Guerrier BRONZE PLATER, BRONZE PLATER-C Referring Provider Active Start: February 27, 2025 End: February 27, 2025 Team Status: Active Member Role Status Dates Dr. Scott Mcdowell MD Primary Care Provider Active Start: February 27, 2025 Dr. Raymundo Petty MD Attending Provider Active S tart: February 27, 2025 Team Status: Active Member Role Status Dates Dr. Scott Mcdowell MD Primary Care Provider Active Start: February 27, 2025 Dr. Scott Mcdowell MD Referring Provider Active Start: February 27, 2025 Dr. Raymundo Petty MD Attending Provider Active S tart: February 27, 2025 Team Status: Inactive Member Role Status Dates Dr. Scott Mcdowell MD Primary Care Provider Active Start: April 02, 2025 End: April 02, 2025 Dr. Scott Mcdowell MD Referring Provider Active Start: April 02, 2025 End: April 02, 2025 Cindy Guerrier BRONZE PLATER, BRONZE PLATER-C Attending Provider Active Start: April 02, 2025 End: April 02, 2025 Team Status: Inactive Member Role Status Dates Dr. Scott Mcdowell MD Primary Care Provider Active Start: April 02, 2025 End: April 02, 2025 FIGUEROA JENKINS MD Attending Provider Active Star t: April 02, 2025 End: April 02, 2025 FIGUEROA JENKINS MD Referring Provider Active Star t: April 02, 2025 End: April 02, 2025 Team Status: Inactive Member Role Status Dates Dr. Scott Mcdowell MD Primary Care Provider Active Start: April 27, 2025 End: April 27, 2025 Dr. Bria Gan MD Attending Provider Active Start: April 27, 2025 End: April 27, 2025 Dr. Bria Gan MD Referring Provider Active Start: April 27, 2025 End: April 27, 2025 Team Status: Inactive Member Role Status Dates Dr. Scott Mcdowell MD Primary Care Provider Active Start: May 10, 2025 End: May 14, 2025 Dr. Bria Gan MD Admit Provider Active Sta rt: May 10, 2025 End: May 14, 2025 Dr. Bria Gan MD Attending Provider Active Start: May 10, 2025 End: May 14, 2025 Dr. Bria Gan MD Referring Provider Active Start: May 10, 2025 End: May 14, 2025 Dr. Lane Harden DO Other Provider Active S tart: May 10, 2025 End: May 14, 2025 Team Status: Active Member Role Status Dates Dr. Scott Mcdowell MD Primary Care Provider Active Start: May 11, 2025 Dr. Bria Gan MD Admit Provider Active Sta rt: May 11, 2025 Dr. Bria Gan MD Referring Provider Active Start: May 11, 2025 Dr. Bria Gan MD Other Provider Active Sta rt: May 11, 20[address] Dr. [address] Harden DO Attending Provider Active Start: May 11, 2025 Dr. Lane Harden DO Other Provider Active S tart: May 11, 2025 Team Status: Active Member Role Status Dates Dr. Scott Mcdowell MD Primary Care Provider Active Start: May 12, 2025 Dr. Bria Gan MD Admit Provider Active Sta rt: May 12, 2025 Dr. Bria Gan MD Referring Provider Active Start: May 12, 2025 Dr. Bria Gan MD Other Provider Active Sta rt: May 12, 20[address] Dr. [address] Harden DO Attending Provider Active Start: May 12, 2025 Dr. Lane Harden DO Other Provider Active S tart: May 12, 2025 Team Status: Active Member Role Status Dates Dr. Scott Mcdowell MD Primary Care Provider Active Start: May 13, 2025 Dr. Bria Gan MD Admit Provider Active Sta rt: May 13, 2025 Dr. Bria Gan MD Referring Provider Active Start: May 13, 2025 Dr. Bria Gan MD Other Provider Active Sta rt: May 13, 20[address] Dr. [address] Harden DO Attending Provider Active Start: May 13, 2025 Dr. Lane Harden DO Other Provider Active S tart: May 13, 2025 Team Status: Active Member Role Status Dates Dr. Scott Mcdowell MD Primary Care Provider Active Start: May 14, 2025 Dr. Bria Gan MD Admit Provider Active Sta rt: May 14, 2025 Dr. Bria Gan MD Referring Provider Active Start: May 14, 2025 Dr. Bria Gan MD Other Provider Active Sta rt: May 14, 20[address] Dr. [address] Harden DO Attending Provider Active Start: May 14, 2025 Dr. Lane Harden DO Other Provider Active S tart: May 14, 2025 Team Status: Active Member Role/Relationship Status Dates Dr. Scott Mcdowell MD Primary Care Provider Active Team Status: Inactive Member Role/Relationship Status Dates CHERRY Allen Primary Care Provider Active Start: January 23, 2025 End: January 26, 2025 Dr. Martha Long DO Emergency Provider Active Start: January 23, 2025 End: January 26, 2025 Dr. Raymundo Bhardwaj DO Admit Provider Active Star t: January 23, 2025 End: January 26, 2025 Dr. Raymundo Bhardwaj DO Other Provider Active Star t: January 23, 2025 End: January 26, 2025 Dr. Raymundo Petty MD Other Provider Active Start : January 23, 2025 End: January 26, 2025 Dr. Lori Matthews DO Attending Provider Active S tart: January 23, 2025 End: January 26, 2025 Team Status: Active Member Role/Relationship Status Dates CLOVIS AllenC Primary Care Provider Active Start: January 26, 2025 Dr. Martha Long DO Emergency Provider Active Start: January 26, 2025 Dr. Raymundo Bhardwaj DO Admit Provider Active Star t: January 26, 2025 Dr. Raymundo Bhardwaj DO Other Provider Active Star t: January 26, 2025 Dr. Ramyundo Petty MD Other Provider Active Start : January 26, 2025 Dr. Lori Matthews DO Attending Provider Active S tart: January 26, 2025 Dr. Lori Matthews DO Other Provider Active Start : January 26, 2025 Team Status: Inactive Member Role/Relationship Status Dates Lori Dale BRONZE PLATER-C Primary Care Provider Active Start: January 26, 2025 End: February 10, 2025 Dr. Scott Mcdowell MD Admit Provider Active Star t: January 26, 2025 End: February 10, 2025 Dr. Scott Mcdowell MD Attending Provider Active Start: January 26, 2025 End: February 10, 2025 Team Status: Inactive Member Role/Relationship Status Dates Lori Dale BRONZE PLATER-C Primary Care Provider Active Start: February 07, 2025 End: February 07, 2025 Dr. Scott Mcdowell MD Attending Provider Active Start: February 07, 2025 End: February 07, 2025 Dr. Scott Mcdowell MD Referring Provider Active Start: February 07, 2025 End: February 07, 2025 Team Status: Active Member Role/Relationship Status Dates Lori Dale BRONZE PLATER-C Primary Care Provider Active Start: February 07, 2025 Dr. Raymundo Petty MD Attending Provider Active S tart: February 07, 2025 Dr. Scott Mcdowell MD Referring Provider Active Start: February 07, 2025 Team Status: Inactive Member Role/Relationship Status Dates Lori Dale BRONZE PLATER-C Primary Care Provider Active Start: February 08, 2025 End: February 08, 2025 Dr. Scott Mcdowell MD Attending Provider Active Start: February 08, 2025 End: February 08, 2025 Dr. Scott Mcdowell MD Referring Provider Active Start: February 08, 2025 End: February 08, 2025 Team Status: Inactive Member Role/Relationship Status Dates Lori Dale BRONZE PLATER-C Primary Care Provider Active Start: February 12, 2025 End: February 12, 2025 Lori Dale NP-C Referring Provider Active S tart: February 12, 2025 End: February 12, 2025 Cindy Guerrier NP, BRONZE PLATER-C Attending Provider Active Start: February 12, 2025 End: February 12, 2025 Team Status: Inactive Member Role/Relationship Status Dates Dr. Scott Mcdowell MD Primary Care Provider Active Start: February 12, 2025 End: February 12, 2025 Dr. Scott Mcdowell MD Attending Provider Active Start: February 12, 2025 End: February 12, 2025 Team Status: Inactive Member Role/Relationship Status Dates Dr. Scott Mcdowell MD Primary Care Provider Active Start: February 27, 2025 End: February 27, 2025 Cidny Guerrier BRONZE PLATER, BRONZE PLATER-C Attending Provider Active Start: February 27, 2025 End: February 27, 2025 Cindy Guerrier BRONZE PLATER, BRONZE PLATER-C Referring Provider Active Start: February 27, 2025 End: February 27, 2025 Team Status: Active Member Role/Relationship Status Dates Dr. Scott Mcdowell MD Primary Care Provider Active Start: February 27, 2025 Dr. Scott Mcdowell MD Referring Provider Active Start: February 27, 2025 Dr. Raymundo Petty MD Attending Provider Active S tart: February 27, 2025 Team Status: Inactive Member Role/Relationship Status Dates Dr. Scott Mcdowell MD Primary Care Provider Active Start: April 02, 2025 End: April 02, 2025 Dr. Scott Mcdowell MD Referring Provider Active Start: April 02, 2025 End: April 02, 2025 Cindy Guerrier NP, BRONZE PLATER-C Attending Provider Active Start: April 02, 2025 End: April 02, 2025 Team Status: Inactive Member Role/Relationship Status Dates Dr. Scott Mcdowell MD Primary Care Provider Active Start: April 02, 2025 End: April 02, 2025 FIGUEROA JENKINS MD Attending Provider Active Star t: April 02, 2025 End: April 02, 2025 FIGUEROA JENKINS MD Referring Provider Active Star t: April 02, 2025 End: April 02, 2025 Team Status: Inactive Member Role/Relationship Status Dates Dr. Scott Mcdowell MD Primary Care Provider Active Start: April 27, 2025 End: April 27, 2025 Dr. Bria Gan MD Attending Provider Active Start: April 27, 2025 End: April 27, 2025 Dr. Bria Gan MD Referring Provider Active Start: April 27, 2025 End: April 27, 2025 Team Status: Inactive Member Role/Relationship Status Dates Dr. Scott Mcdowell MD Primary Care Provider Active Start: May 10, 2025 End: May 14, 2025 Dr. Bria Gan MD Admit Provider Active Sta rt: May 10, 2025 End: May 14, 2025 Dr. Bria aGn MD Attending Provider Active Start: May 10, 2025 End: May 14, 2025 Dr. Bria Gan MD Referring Provider Active Start: May 10, 2025 End: May 14, 2025 Dr. Lane Harden , DO Other Provider Active S tart: May 10, 2025 End: May 14, 2025 Team Status: Active Member Role/Relationship Status Dates Dr. Scott Mcdowell MD Primary Care Provider Active Start: May 11, 2025 Dr. Bria Gan MD Admit Provider Active Sta rt: May 11, 2025 Dr. Bria Gan MD Referring Provider Active Start: May 11, 2025 Dr. Bria Gan MD Other Provider Active Sta rt: May 11, 20[address] Dr. [address] Harden DO Attending Provider Active Start: May 11, 2025 Dr. Lane Harden DO Other Provider Active S tart: May 11, 2025 Team Status: Active Member Role/Relationship Status Dates Dr. Scott Mcdowell MD Primary Care Provider Active Start: May 12, 2025 Dr. Bria Gan MD Admit Provider Active Sta rt: May 12, 2025 Dr. Bria Gan MD Other Provider Active Sta rt: May 12, 20[address] Dr. [address] Harden DO Attending Provider Active Start: May 12, 2025 Dr. Laen Harden DO Other Provider Active S tart: May 12, 2025 Team Status: Active Member Role/Relationship Status Dates Dr. Scott Mcdowell MD Primary Care Provider Active Start: May 13, 2025 Dr. Bria Gan MD Admit Provider Active Sta rt: May 13, 2025 Dr. Bria Gan MD Other Provider Active Sta rt: May 13, 20[address]. [address] Harden DO Attending Provider Active Start: May 13, 2025 Dr. Lane Harden , DO Other Provider Active S tart: May 13, 2025 Team Status: Active Member Role/Relationship Status Dates Dr. Scott Mcdowell MD Primary Care Provider Active Start: May 14, 2025 Dr. Bria Gan MD Admit Provider Active Sta rt: May 14, 2025 Dr. Bria Gan MD Other Provider Active Sta rt: May 14, 20[address] Dr. [address] Harden DO Attending Provider Active Start: May 14, 2025 Dr. Lane Harden DO Other Provider Active S tart: May 14, 2025 Team Status: Inactive Member Role/Relationship Status Dates Dr. Scott Mcdowell MD Primary Care Provider Active Start: May 14, 2025 End: May 26, 2025 Dr. Scott Mcdowell MD Admit Provider Active Star t: May 14, 2025 End: May 26, 2025 Dr. Scott Mcdowell MD Attending Provider Active Start: May 14, 2025 End: May 26, 2025 Team Status: Inactive Member Role/Relationship Status Dates Dr. Scott Mcdowell MD Primary Care Provider Active Start: February 27, 2025 End: February 27, 2025 Cindy Guerreir BRONZE PLATER, BRONZE PLATER-C Attending Provider Active Start: February 27, 2025 End: February 27, 2025 Cindy Guerrier BRONZE PLATER, BRONZE PLATER-C Referring Provider Active Start: February 27, 2025 End: February 27, 2025 Team Status: Active Member Role/Relationship Status Dates Dr. Scott Mcdowell MD Primary Care Provider Active Start: February 27, 2025 Dr. Scott Mcdowell MD Referring Provider Active Start: February 27, 2025 Dr. Raymundo Petty MD Attending Provider Active S tart: February 27, 2025 Team Status: Inactive Member Role/Relationship Status Dates Dr. Scott Mcdowell MD Primary Care Provider Active Start: April 02, 2025 End: April 02, 2025 Dr. Scott Mcdowell MD Referring Provider Active Start: April 02, 2025 End: April 02, 2025 Cindy Guerrier BRONZE PLATER, BRONZE PLATER-C Attending Provider Active Start: April 02, 2025 End: April 02, 2025 Team Status: Inactive Member Role/Relationship Status Dates Dr. Scott Mcdowell MD Primary Care Provider Active Start: April 02, 2025 End: April 02, 2025 FIGUEROA JENKINS MD Attending Provider Active Star t: April 02, 2025 End: April 02, 2025 FIGUEROA JENKINS MD Referring Provider Active Star t: April 02, 2025 End: April 02, 2025 Team Status: Inactive Member Role/Relationship Status Dates Dr. Scott Mcdowell MD Primary Care Provider Active Start: April 27, 2025 End: April 27, 2025 Dr. Bria Gan MD Attending Provider Active Start: April 27, 2025 End: April 27, 2025 Dr. Bria Gan MD Referring Provider Active Start: April 27, 2025 End: April 27, 2025 Team Status: Inactive Member Role/Relationship Status Dates Dr. Scott Mcdowell MD Primary Care Provider Active Start: May 10, 2025 End: May 14, 2025 Dr. Bria Gan MD Admit Provider Active Sta rt: May 10, 2025 End: May 14, 2025 Dr. Bria Gan MD Attending Provider Active Start: May 10, 2025 End: May 14, 2025 Dr. Bria Gan MD Referring Provider Active Start: May 10, 2025 End: May 14, 2025 Dr. [address] Harden DO Other Provider Active S tart: May 10, 2025 End: May 14, 2025 Team Status: Active Member Role/Relationship Status Dates Dr. Scott Mcdowell MD Primary Care Provider Active Start: May 11, 2025 Dr. Bria Gan MD Admit Provider Active Sta rt: May 11, 2025 Dr. Bria Gan MD Referring Provider Active Start: May 11, 2025 Dr. Bria Gan MD Other Provider Active Sta rt: May 11, 20[address] Dr. [address] Harden DO Attending Provider Active Start: May 11, 2025 Dr. Lane Harden DO Other Provider Active S tart: May 11, 2025 Team Status: Active Member Role/Relationship Status Dates Dr. Luca Edward MD Attending Provider Active Start: May 12, 2025 ABRAHAM Peace Referring Provider Active St art: May 12, 2025 Team Status: Active Member Role/Relationship Status Dates Dr. Scott Mcdowell MD Primary Care Provider Active Start: May 12, 2025 Dr. Bria Gan MD Admit Provider Active Sta rt: May 12, 2025 Dr. Bria Gan MD Other Provider Active Sta rt: May 12, 20[address]. [address] Harden DO Attending Provider Active Start: May 12, 20[address] Dr. [address] Harden DO Other Provider Active S tart: May 12, 2025 Team Status: Active Member Role/Relationship Status Dates Dr. Scott Mcdowell MD Primary Care Provider Active Start: May 13, 2025 Dr. Bria Gan MD Admit Provider Active Sta rt: May 13, 2025 Dr. Bria Gan MD Other Provider Active Sta rt: May 13, [address]. [address] Harden DO Attending Provider Active Start: May 13, 2025 Dr. Lane Harden DO Other Provider Active S tart: May 13, 2025 Team Status: Active Member Role/Relationship Status Dates Dr. Scott Mcdowell MD Primary Care Provider Active Start: May 14, 2025 Dr. Bria Gan MD Admit Provider Active Sta rt: May 14, 2025 Dr. Bria Gan MD Other Provider Active Sta rt: May 14, 2025 Dr. Lane Harden DO Attending Provider Active Start: May 14, 2025 Dr. Lane Harden DO Other Provider Active S tart: May 14, 2025 Team Status: Inactive Member Role/Relationship Status Dates Dr. Scott Mcdowell MD Primary Care Provider Active Start: May 14, 2025 End: May 26, 2025 Dr. Scott Mcdowell MD Admit Provider Active Star t: May 14, 2025 End: May 26, 2025 Dr. Scott Mcdowell MD Attending Provider Active Start: May 14, 2025 End: May 26, 2025 FOR RECORDS PERTAINING TO PATIENTS WHO ARE OR HAVE BEEN ENROLLED IN A CHEMICAL DEPENDENCY/SUBSTANCEABUSE PROGRAM, SOME INFORMATION MAY BE OMITTED. This clinical summary was aggregated from multiple sources. Caution should be exercised in using it in the provision of clinical care. This summary normalizes information from multiple sources, and as a consequence, information in this document may materially change the coding, format and clinical context of patient data. In addition, data may be omitted in some cases. CLINICAL DECISIONS SHOULD BE BASED ON THE PRIMARY CLINICAL RECORDS. [facility] [email or web address] provides no warranty or guarantee of the accuracy or completeness of information in this document.
[2025-07-21 12:50] LABS: Hematocrit 39.5 % (37-47); Hemoglobin 12.7 g/dL (12.0-15.0); Immature Granulocytes Count 0.020 X10^3/uL (0.0-0.0); Mean Corp Hgb Conc 32.2 g/dL (32-36); Mean Corpuscular Volume 88.8 fL (81-99); Mean Platelet Vol. 10.5 fl (6.2-12.0); NRBC Flagged by Analyzer 0 % (0-5); Platelet Count 269 K/mm3 (150-450); RBC Distribution Width CV 13.5 % (11.6-14.6); RBC Distribution Width SD 44.4 fl (35.1-43.9); Red Blood Count 4.45 M/mm3 (4.2-5.4); White Blood Count 7.5 K/mm3 (4.4-11.0)
== END | disposition home or self-care (01) ==
LOC: LAB 10:45
PROVIDERS: PCP Family Medicine Geriatric Medicine; Referring Provider Internal Medicine Pulmonary Disease; Visit Provider Internal Medicine Pulmonary Disease
DX: I27.82 Chronic pulmonary embolism (principal)
CPT/HCPCS: 36415; 85025

== ENCOUNTER → 2025-08-20 | Outpatient (CLI) | payer MEDICARE, SELFPAY ==
[2025-08-20 12:24] LABS: Hematocrit 41.6 % (37-47); Hemoglobin 13.8 g/dL (12.0-15.0); Immature Granulocytes Count 0.020 X10^3/uL (0.0-0.0); Mean Corp Hgb Conc 33.2 g/dL (32-36); Mean Corpuscular Volume 86.1 fL (81-99); Mean Platelet Vol. 10.7 fl (6.2-12.0); NRBC Flagged by Analyzer 0 % (0-5); Platelet Count 285 K/mm3 (150-450); RBC Distribution Width CV 13.6 % (11.6-14.6); RBC Distribution Width SD 43.0 fl (35.1-43.9); Red Blood Count 4.83 M/mm3 (4.2-5.4); White Blood Count 8.5 K/mm3 (4.4-11.0)
[2025-08-20 13:26] LABS: AST(SGOT) 30 U/L (<=31); Alanine Aminotransfer ALT/SGPT 24 U/L (<=34); Albumin, Serum 4.4 g/dL (3.4-4.8); Alkaline Phosphatase 116 U/L (35-104); Anion Gap 12 (5-15); BUN 17 mg/dL (4-19); BUN/Creat Ratio 29.6 RATIO (10-20); Calcium,Total 9.9 mg/dL (7.6-11.0); Carbon Dioxide 25.3 mmol/L (21.0-32.0); Chloride 101 mmol/L (98-108); Cholesterol 284 mg/dL (<=200); Globulin 3.8 g/dL (2.2-4.2); Glucose 105 mg/dL (70-99); Low Density Lipoprotein Calc. 187 mg/dL; Potassium 4.7 mmol/L (3.3-5.1); Triglycerides 146 mg/dL; Very Low Density Lipoprotein 29 mg/dL (5-40); Vitamin D,25 Hydroxy 57.6 ng/mL (30-100); cholesterol:hdl ratio screen 4.19
== END | disposition home or self-care (01) ==
LOC: LAB 11:09
PROVIDERS: PCP Family Medicine Geriatric Medicine; Referring Provider Family Medicine Geriatric Medicine; Visit Provider Family Medicine Geriatric Medicine
DX: E55.9 Vitamin D deficiency, unspecified (principal); E78.5 Hyperlipidemia, unspecified; R53.83 Other fatigue
CPT/HCPCS: 36415; 80053; 80061; 82306; 84443; 85025

== ENCOUNTER → 2025-11-13 | Outpatient (CLI) | payer MEDICARE, SELFPAY ==
[2025-11-13 15:10] LABS: AST(SGOT) 48 U/L (<=31); Alanine Aminotransfer ALT/SGPT 53 U/L (<=34); Albumin, Serum 4.2 g/dL (3.4-4.8); Alkaline Phosphatase 113 U/L (35-104); Bilirubin, Direct 0.12 mg/dL (0.00-0.30); Globulin 3.1 g/dL (2.2-4.2)
== END | disposition home or self-care (01) ==
LOC: LAB 13:36
PROVIDERS: PCP Family Medicine Geriatric Medicine; Referring Provider Internal Medicine Pulmonary Disease; Visit Provider Internal Medicine Pulmonary Disease
DX: J84.10 Pulmonary fibrosis, unspecified (principal)
CPT/HCPCS: 36415; 80076